=== PATIENT | male | born 1955 | race Caucasian/White ===

== ENCOUNTER 2019-08-21 13:42 | Outpatient (RCR) | payer SELFPAY | END 2019-09-13 23:59 | disposition home or self-care (01) | LOC: CR 13:42 | PROVIDERS: Family Provider Family Medicine; PCP Family Medicine; Referring Provider Internal Medicine Cardiovascular Disease; Visit Provider Internal Medicine Cardiovascular Disease | DX: Z95.5 Presence of coronary angioplasty implant and graft (principal) ==

== ENCOUNTER 2019-09-16 14:49 | Outpatient (RCR) | payer SELFPAY | END 2019-10-12 23:59 | disposition home or self-care (01) | LOC: CR 14:49 | PROVIDERS: Family Provider Family Medicine; PCP Family Medicine; Referring Provider Internal Medicine Cardiovascular Disease; Visit Provider Internal Medicine Cardiovascular Disease | DX: Z95.5 Presence of coronary angioplasty implant and graft (principal) ==

== ENCOUNTER 2019-09-19 03:15 | Observation (INO) | payer MEDICARE, OTHER, SELFPAY ==
[2019-09-19] VITALS (18 sets, daily range): BP systolic 137–161; BP diastolic 67–97; PULSE 55–88; RESP 14–18; TEMP 36.6–36.9; O2SAT 92–96; BMI 34.5
--- NOTE | 2019-09-19 03:18 | ED_ITS ---
Entered by Felisa Rivas, acting as scribe for Meaghan Hendrix MD Documented by User: Meaghan Hendrix MD 09/19/19 05:24 HPI - Chest Pain General: Chief Complaint: Chest Pain Stated Complaint: CP Time Seen by Provider: 09/19/19 03:18 Source: patient and family Mode of arrival: ambulatory History of Present Illness: HPI narrative: 64 y/o male presents to the ED with complaint of chest pain. Pt states it started as a weight/pressure and then he became SOB. He did not have any relief from home NTG. Pt states he had a CABG in 2006 and his las ER visit for chest pain was in 2018. 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 Morrison. complaint: chest pain Pertinent past history: CABG Onset (ago): hour(s) Timing of current episode: constant and still present Prior episodes: Yes Onset: during rest Severity: similar to previous episodes Quality: heaviness Relieving factors: nothing Associated symptoms: Reports dyspnea; Deny abdominal pain, fever(s), nausea or vomiting Treatment prior to arrival: nitroglycerin Risk Factors: Coronary artery disease risk factors: diabetes and hypertension Review of Systems Const: Denies: fever, chills, body aches or change in appetite Eyes: Denies: blurry vision or eye discomfort ENMT: Denies: throat pain or dental pain Card: Reports: chest pain Resp: Reports: shortness of breath GI: Denies: abdominal pain, nausea, vomiting or diarrhea : Denies: painful urination Musc: Denies: neck pain or back pain Skin/Breast: Denies: rash Neuro: Denies: headache Psych: Denies: depression Marcus/Lymph: Denies: easy bruising All/Imm: Denies: hives PFSH ED PFSH: Statuses (acute, chronic, etc) shown below reflect problem list status as previously entered and may not be historically accurate Medical History (Updated 09/19/19 @ 18:58 by Tara Morrison MD) Adult-onset obesity (Acute) Anxiety (Acute) CAD (coronary artery disease) (Acute) Followed by Dr. Morrison, history of stenting and CABG GERD (gastroesophageal reflux disease) (Acute) Hyperlipidemia (Acute) Hypertension (Acute) Ischemic cardiomyopathy (Acute) PAD (peripheral artery disease) (Acute) Systolic congestive heart failure (Acute) last echo 10/2017- LVEF 40%, normal diastolic function, trace MR. Type 2 diabetes mellitus, without long-term current use of insulin (Inactive) Surgical History Coronary angioplasty status (Acute) 04/25/15: balloon angioplasty to PDA and PLB, GOMEZ to LAD patent, SVG to OM 1 patent, SVG to PDA patent. Prox RCA 60% stenosis. History of cardiac radiofrequency ablation (Acute) History of carpal tunnel release (Acute) History of cholecystectomy (Acute) History of femoropopliteal bypass (Acute) Left common femoral artery bypass surgery performed by Dr. Carrillo on 12/15/2014 History of surgery on extremity (Acute) 12/28/2014: Right groin and femoral artery exploration and primary repair of right femoral artery catheterization site History of umbilical hernia repair (Acute) S/P CABG x 3 (Acute) GOMEZ to LAD, SVG to OM1, SVG to PDA Family History Brother CAD (coronary artery disease) Diabetes Hyperlipidemia Hypertension Mother CAD (coronary artery disease) Cancer Diabetes Hyperlipidemia Hypertension Grandfather Cancer Father Diabetes Hyperlipidemia Hypertension Denies family history of Clotting disorder Dementia Psychiatric illness Chronic kidney disease (CKD) Suicide Anesthesia complication Bleeding disorder Family history of premature coronary artery disease Lung disease Stroke Social History Smoking and tobacco status: never smoked Alcohol intake: never Substance/Drug Use: never Physical Exam Const: COMMON NORMALS: oriented x3 NUTRITIONAL APPEARANCE: obese HENMT: COMMON NORMALS: normocephalic and head/scalp atraumatic HEAD & SCALP: normocephalic and atraumatic Eye: COMMON NORMALS: PERRL and EOMs intact bilaterally PUPIL: Yes PERRL Neck/C-Spine: COMMON NORMALS: full ROM and supple Chest: COMMONS NORMALS: inspection of chest normal and palpation of chest normal Resp: COMMON NORMALS: normal respiratory effort, no retractions, no use of accessory muscles and clear to auscultation bilaterally AUSCULTATION: clear to auscultation bilaterally Cardio: COMMON NORMALS: regular rate, regular rhythm and no murmurs RATE: regular rate RHYTHM: regular rhythm GI: COMMON NORMALS: normal to inspection, nondistended, normoactive bowel sounds, soft to palpation, non-tender and no masses PALPATION: Yes soft Extremity: COMMON NORMALS: normal to inspection and full ROM Neuro: COMMON NORMALS: oriented x3, moves all extremities and no focal motor deficits Psych: COMMON NORMALS: mental status grossly normal, thought process normal and cooperative THOUGHT PROCESS: normal thought process Skin: COMMON NORMALS: no rashes or lesions noted and no wounds GENERAL SKIN EXAM: no rashes or lesions noted Course Reevaluation(s): Reevaluation #1: Discussed patient's initial troponin being normal. Due to patient's history I recommended admission. He states that his pain has improved and his stress test never show any findings. He states that he would like to think longer about if he wants to stay or just follow-up with Dr. Smith as an outpatient. He states he saw his primary care doctor last week and I spoke about doing an outpatient cath test. I informed patient that we will do a 2-hour troponin and see if there is any change and also discussed again if he would like to stay or follow-up outpatient. Time: 04:51 Vital Signs: Vital signs: Vital Signs Temperature 98.3 F 09/20/19 14:46 Pulse Rate 79 09/20/19 14:46 Respiratory Rate 18 09/20/19 14:46 Blood Pressure 143/80 09/20/19 14:46 Pulse Oximetry 94 09/20/19 14:46 MDM - Chest Pain Lab Data: Labs: Lab Results 09/19/19 09/19/19 09/19/19 Range/Units 03:36 03:36 03:36 WBC 8.4 (4.0-10.0) 10^3/ uL RBC 4.56 (4.1-5.3) 10^6/u L Hgb 13.1 (11.7-16.6) g/dL Hct 40.2 L (42.0-52.0) % MCV 88.2 (80-94) fL MCH 28.7 (28.0-34.0) pg MCHC 32.6 (30.0-36.0) g/dL RDW 12.7 (12.1-15.1) % Plt Count 256 (130-400) 10^3/c mm MPV 10.2 (7.4-10.4) fL Neut % (Auto) 57.4 % Lymph % (Auto) 24.8 % Dare % (Auto) 12.0 % Eos % (Auto) 4.1 % Baso % (Auto) 1.1 % Neut # (Auto) 4.8 (1.8-7.7) 10^3/u L Lymph # (Auto) 2.1 (0.8-4.8) 10^3/u L Dare # (Auto) 1.0 H (0.2-0.9) 10^3/u L Eos # (Auto) 0.3 (0.0-0.8) 10^3/u L Baso # (Auto) 0.1 (0.0-0.1) 10^3/u L Nucleated RBC % (a uto) 0 % Nucleated RBCs # 0.0 /100WBC Sodium 135 L (136-145) mmol/L Potassium 4.0 (3.5-5.1) mmol/L Chloride 99 (98-107) mmol/L Carbon Dioxide 22 (22-29) mmol/L Anion Gap 18.0 (5-19) BUN 18 (8-23) mg/dL Creatinine 1.0 (0.7-1.2) mg/dL GFR Calculation 75.2 L (90-130) mL/min Glucose 155 H (65-115) mg/dL Calcium 9.4 (8.5-10.5) mg/dL Total Bilirubin 0.4 (0.15-1.2) mg/dL AST 16 (0-40) U/L ALT 17 (0-41) U/L Alkaline Phosphata se 83 (40-130) IU/L Troponin T Baselin e 14 (0-15) ng/mL Troponin T 120 Min [place] (0-15) ng/mL Delta Troponin T (0-10) ABS# Total Protein 6.4 L (6.6-8.7) g/dL Albumin 3.8 (3.5-5.2) g/dL Globulin 2.6 (1.3-4.6) g/dL Lipase 31 (13-60) U/L 09/19/19 Range/Units 05:35 WBC (4.0-10.0) 10^3/ uL RBC (4.1-5.3) 10^6/u L Hgb (11.7-16.6) g/dL Hct (42.0-52.0) % MCV (80-94) fL MCH (28.0-34.0) pg MCHC (30.0-36.0) g/dL RDW (12.1-15.1) % Plt Count (130-400) 10^3/c mm MPV (7.4-10.4) fL Neut % (Auto) % Lymph % (Auto) % Dare % (Auto) % Eos % (Auto) % Baso % (Auto) % Neut # (Auto) (1.8-7.7) 10^3/u L Lymph # (Auto) (0.8-4.8) 10^3/u L Dare # (Auto) (0.2-0.9) 10^3/u L Eos # (Auto) (0.0-0.8) 10^3/u L Baso # (Auto) (0.0-0.1) 10^3/u L Nucleated RBC % (a uto) % Nucleated RBCs # /100WBC Sodium (136-145) mmol/L Potassium (3.5-5.1) mmol/L Chloride (98-107) mmol/L Carbon Dioxide (22-29) mmol/L Anion Gap (5-19) BUN (8-23) mg/dL Creatinine (0.7-1.2) mg/dL GFR Calculation (90-130) mL/min Glucose (65-115) mg/dL Calcium (8.5-10.5) mg/dL Total Bilirubin (0.15-1.2) mg/dL AST (0-40) U/L ALT (0-41) U/L Alkaline Phosphata se (40-130) IU/L Troponin T Baselin e (0-15) ng/mL Troponin T 120 Min [place] 15.65 H (0-15) ng/mL Delta Troponin T 1.65 (0-10) ABS# Total Protein (6.6-8.7) g/dL Albumin (3.5-5.2) g/dL Globulin (1.3-4.6) g/dL Lipase (13-60) U/L Imaging Data^: CXR: Attestation: I personally reviewed and interpreted this imaging study as follows: My impression: No acute abnormality EKG Data^: EKG 1: Attestation: I personally reviewed and interpreted this EKG as follows: EKG interpretation date: 09/19/19 EKG interpretation time: 03:27 Interpretation: Normal sinus rhythm heart rate [address] or T wave abnormalities QRS 118 QTc 398 EKG 2: EKG interpretation date: 09/19/19 EKG interpretation time: 05:22 Interpretation: Normal sinus rhythm heart rate [address] or T wave abnormalities QRS 124 QTc 404 Discharge Plan Discharge Patient Disposition: Admitted As Inpatient Admit Provider: Marley Charles Clinical Impression: Chest pain Qualifiers: Chest pain type: unspecified Qualified Code(s): R07.9 - Chest pain, unspecified Condition: Stable Discharge Orders: Discharge Order (Routine); Ordered 09/20/19 Ordered By: Satinder Chapa Referrals: Tara Morrison MD [Physician] - 6 Weeks (PLEASE CALL FOR APPOINTMENT WITH HEART CARE) Teodoro Jon DO [Primary Care Provider] - 4-7 days Discharge Diet: Cardiac and Diabetic Discharge Activity: Increase activity as tolerated and Limit activity as instructed Patient Instructions: Atorvastatin (By mouth), Coronary Artery Disease (GEN), Chest Pain (GEN), Chest Pain Stoplight Additional Instructions: Avoid lifting over 5 pounds for 3 days. If you experience recurrence of chest pain, or shortness of breath, bleeding or increased swelling around insertion site of the catheter, or other abnormal symptoms please seek medical attention. Please continue to monitor your blood pressure and glucose 3 times daily, record values to bring to your appointment. Discharge Date/Time: 09/19/19 08:20 Coding Level of Care Code ED Industrial Spraypainter for Chg Fwd Documented by User: Jamie Desir DO 09/20/19 15:31 HPI - Chest Pain General: Chief Complaint: Chest Pain Stated Complaint: CP Time Seen by Provider: 09/19/19 03:18 PFSH ED PFSH: Statuses (acute, chronic, etc) shown below reflect problem list status as previously entered and may not be historically accurate Medical History (Updated 09/19/19 @ 18:58 by Tara Morrison MD) Adult-onset obesity (Acute) Anxiety (Acute) CAD (coronary artery disease) (Acute) Followed by Dr. Morrison, history of stenting and CABG GERD (gastroesophageal reflux disease) (Acute) Hyperlipidemia (Acute) Hypertension (Acute) Ischemic cardiomyopathy (Acute) PAD (peripheral artery disease) (Acute) Systolic congestive heart failure (Acute) last echo 10/2017- LVEF 40%, normal diastolic function, trace MRMark Type 2 diabetes mellitus, without long-term current use of insulin (Inactive) Surgical History Coronary angioplasty status (Acute) 04/25/15: balloon angioplasty to PDA and PLB, GOMEZ to LAD patent, SVG to OM 1 patent, SVG to PDA patent. Prox RCA 60% stenosis. History of cardiac radiofrequency ablation (Acute) History of carpal tunnel release (Acute) History of cholecystectomy (Acute) History of femoropopliteal bypass (Acute) Left common femoral artery bypass surgery performed by Dr. Carrillo on 12/15/2014 History of surgery on extremity (Acute) 12/28/2014: Right groin and femoral artery exploration and primary repair of right femoral artery catheterization site History of umbilical hernia repair (Acute) S/P CABG x 3 (Acute) GOMEZ to LAD, SVG to OM1, SVG to PDA Family History Brother CAD (coronary artery disease) Diabetes Hyperlipidemia Hypertension Mother CAD (coronary artery disease) Cancer Diabetes Hyperlipidemia Hypertension Grandfather Cancer Father Diabetes Hyperlipidemia Hypertension Denies family history of Clotting disorder Dementia Psychiatric illness Chronic kidney disease (CKD) Suicide Anesthesia complication Bleeding disorder Family history of premature coronary artery disease Lung disease Stroke Social History Smoking and tobacco status: never smoked Alcohol intake: never Substance/Drug Use: never Course ED course: While we are waiting for second troponin Mr. Salinas began having chest pain again he rated the chest pain 4-5 out of 10 and some Nitropaste was applied and it significantly reduces chest pain. Troponins do not rule him in in his delta is very minimal however given his report of chest pain while at rest relieved by nitro with a history of heart disease diabetes and hypertension he has a significantly high enough risk with his heart score to warrant observation for full rule out and further evaluation. Reviewing the old chart I do not series had a stress test before. Discussed this with the patient he is agreeable to be admitted discussed Dr. Charles she will see the patient as an inpatient consult cardiology if needed. Vital Signs: Vital signs: Vital Signs Temperature 98.3 F 09/20/19 14:46 Pulse Rate 79 09/20/19 14:46 Respiratory Rate 18 09/20/19 14:46 Blood Pressure 143/80 09/20/19 14:46 Pulse Oximetry 94 09/20/19 14:46 MDM - Chest Pain Lab Data: Labs: Lab Results 09/19/19 09/19/19 09/19/19 Range/Units 03:36 03:36 03:36 WBC 8.4 (4.0-10.0) 10^3/ uL RBC 4.56 (4.1-5.3) 10^6/u L Hgb 13.1 (11.7-16.6) g/dL Hct 40.2 L (42.0-52.0) % MCV 88.2 (80-94) fL MCH 28.7 (28.0-34.0) pg MCHC 32.6 (30.0-36.0) g/dL RDW 12.7 (12.1-15.1) % Plt Count 256 (130-400) 10^3/c mm MPV 10.2 (7.4-10.4) fL Neut % (Auto) 57.4 % Lymph % (Auto) 24.8 % Dare % (Auto) 12.0 % Eos % (Auto) 4.1 % Baso % (Auto) 1.1 % Neut # (Auto) 4.8 (1.8-7.7) 10^3/u L Lymph # (Auto) 2.1 (0.8-4.8) 10^3/u L Dare # (Auto) 1.0 H (0.2-0.9) 10^3/u L Eos # (Auto) 0.3 (0.0-0.8) 10^3/u L Baso # (Auto) 0.1 (0.0-0.1) 10^3/u L Nucleated RBC % (a uto) 0 % Nucleated RBCs # 0.0 /100WBC Sodium 135 L (136-145) mmol/L Potassium 4.0 (3.5-5.1) mmol/L Chloride 99 (98-107) mmol/L Carbon Dioxide 22 (22-29) mmol/L Anion Gap 18.0 (5-19) BUN 18 (8-23) mg/dL Creatinine 1.0 (0.7-1.2) mg/dL GFR Calculation 75.2 L (90-130) mL/min Glucose 155 H (65-115) mg/dL Calcium 9.4 (8.5-10.5) mg/dL Total Bilirubin 0.4 (0.15-1.2) mg/dL AST 16 (0-40) U/L ALT 17 (0-41) U/L Alkaline Phosphata se 83 (40-130) IU/L Troponin T Baselin e 14 (0-15) ng/mL Troponin T 120 Min [place] (0-15) ng/mL Delta Troponin T (0-10) ABS# Total Protein 6.4 L (6.6-8.7) g/dL Albumin 3.8 (3.5-5.2) g/dL Globulin 2.6 (1.3-4.6) g/dL Lipase 31 (13-60) U/L 09/19/19 Range/Units 05:35 WBC (4.0-10.0) 10^3/ uL RBC (4.1-5.3) 10^6/u L Hgb (11.7-16.6) g/dL Hct (42.0-52.0) % MCV (80-94) fL MCH (28.0-34.0) pg MCHC (30.0-36.0) g/dL RDW (12.1-15.1) % Plt Count (130-400) 10^3/c mm MPV (7.4-10.4) fL Neut % (Auto) % Lymph % (Auto) % Dare % (Auto) % Eos % (Auto) % Baso % (Auto) % Neut # (Auto) (1.8-7.7) 10^3/u L Lymph # (Auto) (0.8-4.8) 10^3/u L Dare # (Auto) (0.2-0.9) 10^3/u L Eos # (Auto) (0.0-0.8) 10^3/u L Baso # (Auto) (0.0-0.1) 10^3/u L Nucleated RBC % (a uto) % Nucleated RBCs # /100WBC Sodium (136-145) mmol/L Potassium (3.5-5.1) mmol/L Chloride (98-107) mmol/L Carbon Dioxide (22-29) mmol/L Anion Gap (5-19) BUN (8-23) mg/dL Creatinine (0.7-1.2) mg/dL GFR Calculation (90-130) mL/min Glucose (65-115) mg/dL Calcium (8.5-10.5) mg/dL Total Bilirubin (0.15-1.2) mg/dL AST (0-40) U/L ALT (0-41) U/L Alkaline Phosphata se (40-130) IU/L Troponin T Baselin e (0-15) ng/mL Troponin T 120 Min [place] 15.65 H (0-15) ng/mL Delta Troponin T 1.65 (0-10) ABS# Total Protein (6.6-8.7) g/dL Albumin (3.5-5.2) g/dL Globulin (1.3-4.6) g/dL Lipase (13-60) U/L Discharge Plan Discharge Patient Disposition: Admitted As Inpatient Admit Provider: Marley Charles Clinical Impression: Chest pain Qualifiers: Chest pain type: unspecified Qualified Code(s): R07.9 - Chest pain, unspecified Condition: Stable Discharge Orders: Discharge Order (Routine); Ordered 09/20/19 Ordered By: Satinder Chapa Referrals: Tara Morrison MD [Physician] - 6 Weeks (PLEASE CALL FOR APPOINTMENT WITH HEART CARE) Teodoro Jon DO [Primary Care Provider] - 4-7 days Discharge Diet: Cardiac and Diabetic Discharge Activity: Increase activity as tolerated and Limit activity as instructed Patient Instructions: Atorvastatin (By mouth), Coronary Artery Disease (GEN), Chest Pain (GEN), Chest Pain Stoplight Additional Instructions: Avoid lifting over 5 pounds for 3 days. If you experience recurrence of chest pain, or shortness of breath, bleeding or increased swelling around insertion site of the catheter, or other abnormal symptoms please seek medical attention. Please continue to monitor your blood pressure and glucose 3 times daily, record values to bring to your appointment. Discharge Date/Time: 09/19/19 08:20 Coding Level of Care Code ED Industrial Spraypainter for g Louis The documentation recorded by the Rob mirza Ashley, accurately reflects the service I personally performed and the decisions made by , Meaghan Hendrix MD Sep 19, 2019 03:15
--- NOTE | 2019-09-19 03:26 | XR_ITS ---
WS: [id number] Portable AP upright chest, 09/19/2019 Clinical Data: cp Comparison: Portable chest, 01/20/2018 Findings: No nodules, masses or effusions are seen. The heart is slightly enlarged. The pulmonary vas cularity is not increased. No pneumonia or pneumothorax is seen. Midline sternotomy sutures are prese nt. There are monitor leads on the chest wall. XR/XR chest 1V portable [id number] Impression: Mild cardiomegaly.
--- NOTE | 2019-09-19 03:26 | ECG_ITS ---
Measurements Intervals [place] Rate: 67 P: 43 HI: 233 QRS: 36 QRSD: 124 T: 0 QT: 389 QTc: 411 SINUS RHYTHM WITH FIRST DEGREE AV BLOCK MODERATE INTRAVENTRICULAR CONDUCTION DELAY [110+ ms QRS DURATION] NONSPECIFIC T-WAVE ABNORMALITY Compared to ECG 01/21/2018 11:37:20 No significant changes Electronically Signed On 09-19-2019 16:31:24 OIM ARCHITECT by Rayray Mccoy M.D. [id number]
[2019-09-19] MEDS: morphine 4 mg/mL SDV 1 mL IVP ×2 (03:36→04:12)
[2019-09-19] MEDS: aspirin 81 mg Chew Tablet 324 MG PO (03:41)
[2019-09-19 04:10] LABS: Basophils # 0.1 10^3/uL (0.0-0.1); Basophils % 1.1 %; Eosinophils # 0.3 10^3/uL (0.0-0.8); Eosinophils % 4.1 %; Hematocrit 40.2 % (42.0-52.0); Hemoglobin 13.1 g/dL (11.7-16.6); Lymphocytes # 2.1 10^3/uL (0.8-4.8); Lymphocytes % 24.8 %; Mean Corpuscular HGB Conc 32.6 g/dL (30.0-36.0); Mean Corpuscular Hemoglobin 28.7 pg (28.0-34.0); Mean Corpuscular Volume 88.2 fL (80-94); Mean Platelet Volume 10.2 fL (7.4-10.4); Neutrophils # 4.8 10^3/uL (1.8-7.7); Neutrophils % 57.4 %; Nucleated Red Blood Cells % 0 %; Platelet Count 256 10^3/cmm (130-400); Red Blood Count 4.56 10^6/uL (4.1-5.3); Red Cell Distribution Width 12.7 % (12.1-15.1); White Blood Count 8.4 10^3/uL (4.0-10.0)
[2019-09-19 04:26] LABS: Alanine Aminotransferase 17 U/L (0-41); Albumin Level 3.8 g/dL (3.5-5.2); Alkaline Phosphatase 83 IU/L (40-130); Aspartate Amino Transferase 16 U/L (0-40); Blood Urea Nitrogen 18 mg/dL (8-23); Calcium 9.4 mg/dL (8.5-10.5); Carbon Dioxide 22 mmol/L (22-29); Chloride 99 mmol/L (98-107); Globulin 2.6 g/dL (1.3-4.6); Glomerular Filtration Rate 75.2 mL/min (90-130); Glucose 155 mg/dL (65-115); Lipase 31 U/L (13-60); Sodium 135 mmol/L (136-145); Total Bilirubin 0.4 mg/dL (0.15-1.2); Total Protein 6.4 g/dL (6.6-8.7)
[2019-09-19 04:29] LABS: Troponin(5th) Baseline 14 ng/mL (0-15)
--- NOTE | 2019-09-19 05:22 | PC.NURSE ---
EKG done at 0520 and shown to ER doctor.
--- NOTE | 2019-09-19 05:26 | ECG_ITS ---
Measurements Intervals [place] Rate: 69 P: -25 MO: 199 QRS: 42 QRSD: 118 T: -62 QT: 378 QTc: 407 SINUS RHYTHM WITH FREQUENT VENTRICULAR PREMATURE COMPLEXES MODERATE INTRAVENTRICULAR CONDUCTION DELAY [110+ ms QRS DURATION] NONSPECIFIC T-WAVE ABNORMALITY Compared to ECG 01/21/2018 11:37:20 Ventricular premature complex(es) now present First degree AV block no longer present T-wave abnormality still present Electronically Signed On 09-19-2019 16:38:00 WAREHOUSE RECEIVER by Rayray Mccoy M.D. [id number]
--- NOTE | 2019-09-19 05:32 | PC.NURSE ---
LAB IN ROOM
[2019-09-19 06:03] LABS: Troponin 5 2HR 15.65 ng/mL (0-15); Troponin 5 2HR Delta 1.65 ABS# (0-10)
[2019-09-19] MEDS: nitroglycerin 1 gm/inch oint Pkt 1 INCH TOPICAL (06:13)
--- NOTE | 2019-09-19 06:15 | PC.NURSE ---
PATIENT STATED TO NURSE THAT HIS PAIN WAS COMING BACK IN HIS CHEST AND RATED IT AT A FOUR. NURSE NOTIFIED HCP, 1 INCH OF NITROPASTE APPLIED TO PATIENTS CHEST PER HCP ORDERS.
--- NOTE | 2019-09-19 06:48 | ECG_ITS ---
Measurements Intervals [place] Rate: 69 P: 20 WA: 258 QRS: 19 QRSD: 132 T: -66 QT: 388 QTc: 417 SINUS RHYTHM WITH FIRST DEGREE AV BLOCK WITH OCCASIONAL VENTRICULAR PREMATURE COMPLEXES INTRAVENTRICULAR CONDUCTION DELAY [130+ ms QRS DURATION] Compared to ECG 01/21/2018 11:37:20 Ventricular premature complex(es) now present T-wave abnormality no longer present Electronically Signed On 09-19-2019 16:32:14 PHOTO ENGRAVER by Rayray Mccoy M.D. [id number]
--- NOTE | 2019-09-19 06:50 | PC.NURSE ---
Patient states his pain is at a 2 now after the application of the nitropaste.
[2019-09-19] MEDS: enoxaparin 120 mg/0.8 mL Syringe 110 MG SUBCUT (07:13)
--- NOTE | 2019-09-19 09:26 | ECG_ITS ---
Measurements Intervals [place] Rate: 71 P: 35 WI: 243 QRS: 43 QRSD: 122 T: -58 QT: 390 QTc: 424 SINUS RHYTHM WITH FIRST DEGREE AV BLOCK WITH FREQUENT VENTRICULAR PREMATURE COMPLEXES MODERATE INTRAVENTRICULAR CONDUCTION DELAY [110+ ms QRS DURATION] NONSPECIFIC T-WAVE ABNORMALITY Compared to ECG 01/21/2018 11:37:20 Ventricular premature complex(es) now present T-wave abnormality still present Electronically Signed On 09-19-2019 16:38:29 TAR DISTRIBUTOR OPERATOR by Rayray Mccoy M.D. [id number]
--- NOTE | 2019-09-19 10:12 | PM.HP ---
Providers/Chief Complaint Admitting Physician: Marley Charles DO Primary Care Provider: Teodoro Jon DO Chief Complaint: CP History of Present Illness Dwayne Salinas is a 64 year old male with a past medical history of hypertension, coronary artery disease, systolic congestive heart failure and diabetes that presented to the emergency department today for chest pain. He stated that he has been having progressive chest pain over the past couple of weeks. He stated that symptoms initially occurred at night while he was getting up to use the restroom he would have a sensation of tightness in his chest that would improve with rest. He reports last night he had similar symptoms but they continued to progress to the point that he came into the ER for further evaluation. He stated that he was given 2 sublingual nitroglycerin prior to arrival which did not really help with his symptoms. He was then given Nitropaste and morphine which resolved his symptoms. He stated that the pain is located in the center of his chest and this morning it felt as if an elephant was sitting on his chest then began having pain in the center of his chest that radiated to the left side of his neck and left arm. He reported associated diaphoresis and nausea with this event today. Patient stated that he was seen in the cardiology office 2 days ago and due to his significant history of coronary artery disease with negative stress test in the past there was question of performing a cardiac cath in the near future. Patient was seen and evaluated in the emergency department due to his significant history of coronary artery disease and presenting symptoms he was admitted for further evaluation and treatment. He was given treatment dose Lovenox in the ED Review of Systems Const: Denies: fever or chills Eyes: Denies: change in vision ENMT: Denies: nasal congestion Card: Reports: chest pain; Denies: palpitations or edema Resp: Denies: shortness of breath, productive cough or coughing up blood GI: Reports: nausea; Denies: abdominal pain, vomiting, diarrhea, constipation, blood in stool or black tarry stool : Denies: painful urination or blood in urine Musc: Denies: extremity pain or muscle cramps Skin/Breast: Denies: rash or new lesion Neuro: Denies: headache or dizziness Psych: Denies: anxiety or depression Endo: Denies: excessive urination or hot flashes Marcus/Lymph: Denies: easy bruising or easy bleeding Medications/Allergies Home Medications Medication Instructions Recorded Confirmed Last Taken Type metformin 1,000 mg PO QPM 09/19/19 09/19/19 Unknown History sbueoxes-rhx-QH-lycopen-lutein 1 tab PO DAILY 09/19/19 09/19/19 Unknown History [Centrum Silver Men] sildenafil 25 mg PO PRN 09/19/19 09/19/19 Unknown History Allergies Allergy/AdvReac Type Severity Reaction Status Date / Time acetaminophen Allergy VERY SHORT Verified 09/17/19 09:17 [From Darvocet-N] OF BREATH penicillin G Allergy HIVES Verified 09/17/19 09:17 propoxyphene Allergy VERY SHORT Verified 09/17/19 09:17 [From Darvocet-N] OF BREATH PFSH Acute PFSH: Statuses (acute, chronic, etc) shown below reflect problem list status as previously entered and may not be historically accurate Medical History (Updated 09/19/19 @ 10:25 by Marley Charles DO) Adult-onset obesity (Acute) Anxiety (Acute) CAD (coronary artery disease) (Acute) Followed by Dr. Morrison, history of stenting and CABG GERD (gastroesophageal reflux disease) (Acute) Hyperlipidemia (Acute) Hypertension (Acute) Ischemic cardiomyopathy (Acute) PAD (peripheral artery disease) (Acute) Systolic congestive heart failure (Inactive) last echo 10/2017- LVEF 40%, normal diastolic function, trace MR. Type 2 diabetes mellitus, without long-term current use of insulin (Inactive) Surgical History (Updated 09/19/19 @ 10:25 by Marley Charles DO) Coronary angioplasty status (Acute) 04/25/15: balloon angioplasty to PDA and PLB, GOMEZ to LAD patent, SVG to OM 1 patent, SVG to PDA patent. Prox RCA 60% stenosis. History of cardiac radiofrequency ablation (Acute) History of carpal tunnel release (Acute) History of cholecystectomy (Acute) History of femoropopliteal bypass (Acute) Left common femoral artery bypass surgery performed by Dr. Carrillo on 12/15/2014 History of surgery on extremity (Acute) 12/28/2014: Right groin and femoral artery exploration and primary repair of right femoral artery catheterization site History of umbilical hernia repair (Acute) S/P CABG x 3 (Acute) GOMEZ to LAD, SVG to OM1, SVG to PDA Family History Brother CAD (coronary artery disease) Diabetes Hyperlipidemia Hypertension Mother CAD (coronary artery disease) Cancer Diabetes Hyperlipidemia Hypertension Grandfather Cancer Father Diabetes Hyperlipidemia Hypertension Denies family history of Clotting disorder Dementia Psychiatric illness Chronic kidney disease (CKD) Suicide Anesthesia complication Bleeding disorder Family history of premature coronary artery disease Lung disease Stroke Social History (Updated 09/19/19 @ 10:25 by Marley Charles DO) Smoking and tobacco status: never smoked Alcohol intake: never Substance/Drug Use: never Vitals/I&O/Wt Last Vital Signs Temp 98.2 F 09/19/19 08:47 Pulse 67 09/19/19 08:47 Resp 18 09/19/19 08:47 BP 147/73 09/19/19 08:47 Pulse Ox 95 09/19/19 08:47 Weight last 48 hrs Weight 112.491 kg Physical Exam Const: COMMON NORMALS: oriented x3 and alert GENERAL APPEARANCE: cooperative ORIENTATION/CONSCIOUSNESS: Yes awake, Yes oriented to person, Yes oriented to place and Yes oriented to time HENMT: COMMON NORMALS: normocephalic and head/scalp atraumatic HEAD & SCALP: normocephalic and atraumatic Eye: COMMON NORMALS: PERRL PUPIL: Yes PERRL Neck/C-Spine: COMMON NORMALS: supple GENERAL: Yes normal visual inspection Resp: COMMON NORMALS: normal respiratory effort and clear to auscultation bilaterally EFFORT & INSPECTION: Yes able to speak in complete sentences AUSCULTATION: clear to auscultation bilaterally, no rhonchi and no wheezes Cardio: COMMON NORMALS: regular rate, regular rhythm and no murmurs RATE: regular rate RHYTHM: regular rhythm GI: COMMON NORMALS: soft to palpation and non-tender INSPECTION: No abdominal distension AUSCULTATION: Yes normoactive bowel sounds PALPATION: Yes soft Extremity: COMMON NORMALS: no clubbing, cyanosis or edema and no calf tenderness Neuro: COMMON NORMALS: oriented x3, CN's II-XII intact bilaterally, moves all extremities and no focal motor deficits SENSORIUM/ORIENTATION: Yes alert, Yes oriented to person, Yes oriented to place and Yes oriented to time SPEECH: speech normal Psych: COMMON NORMALS: mental status grossly normal and cooperative Skin: COMMON NORMALS: no rashes or lesions noted GENERAL SKIN EXAM: no rashes or lesions noted Data : 09/19/19 03:36 09/19/19 03:36 A&P Assessment and plan (1) Chest pain: Chest pain with a history of significant coronary artery disease as noted above. Followed by cardiology, Dr. Morrison. Consult to cardiology, Dr. Morrison due to his history and reported false negative stress test by patient in the past. Discussed with Dr. Morrison and will plan for possible cardiac cath tomorrow. Appreciate recommendations and assistance in patient's care. Continue to monitor on telemetry CHINEDU as needed for chest pain Serial EKG and troponin Status: Acute Qualifiers: Chest pain type: unspecified Qualified Code(s): R07.9 - Chest pain, unspecified Code(s): R07.9 - Chest pain, unspecified (2) CAD (coronary artery disease): Continue home aspirin, Coreg, Plavix, enalapril, increase to high intensity statin Deviously on Imdur, however not on current medication list Status: Acute Qualifiers: Coronary Disease-Associated Artery/Lesion type: [place] artery [place] vs. transplanted heart: [place] heart Associated angina: with stable angina Qualified Code(s): I25.118 - Atherosclerotic heart disease of [place] coronary artery with other forms of angina pectoris Code(s): I25.10 - Atherosclerotic heart disease of [place] coronary artery without angina pectoris Additional A&P Information Hypertension: Continue home Lasix, Coreg, Aldactone and enalapril Hyperlipidemia: Increase to high intensity statin Diabetes mellitus type 2: Hold home metformin, place on low-dose sliding scale insulin if needed History of PVCs Systolic congestive heart failure: Last echocardiogram from 2018, will repeat due to his chest pain, appears to be euvolemic at this time, will continue home Lasix, strict intake and output as well as daily weights DVT prophylaxis: Given treatment dose Lovenox in the ED due to the concern for his chest pain with significant coronary artery disease, will continue with SCDs at this time Diet: Cardiac, n.p.o. at midnight CODE STATUS: Full code Attestations Medical Necessity Statement*: Observation due to chest pain, expected stay less than 2 midnights Coding Level of Care Code Acute Tire Tester for [facility] Fwd Diagnoses Chest pain R07.9 Chest pain type: unspecified CAD (coronary artery disease) I25.118 Coronary Disease-Associated Artery/Lesion type: [place] artery [place] vs. transplanted heart: [place] heart Associated angina: with stable angina
--- NOTE | 2019-09-19 10:37 | USCV_ITS ---
Dwayne Salinas Age: 64 Gender: M : 1955 Exam Date: 09/19/2019 10:40 Ordering Phys: Marley Charles DO Technologist: Wendy Hodgson Exam Location: [facility] [place] Indication: Chest pain, CHF BP: 145 / 71 HR: 69 Rhythm: Sinus Technical Quality: Technically difficult study MEASUREMENTS (Male / Female) Normal Values 2D ECHO LV Diastolic Diameter PLAX 4.6 cm 4.2 - 5.9 / 3.9 - 5.3 cm LV Systolic Diameter PLAX 3.3 cm LV Chamber Size 5.0 cm IVS Diastolic Thickness 1.3 cm 0.6 - 1.0 / 0.6 - 0.9 cm IVS Systolic Thickness 2.0 cm LVPW Diastolic Thickness 0.8 cm 0.6 - 1.0 / 0.6 - 0.9 cm LVPW Systolic Thickness 1.3 cm RV Chamber Size 2.1 cm LVOT Diameter 2.0 cm LV Ejection Fraction 2D Teich 55.2 % LA Diameter 4.4 cm LA Width 3.2 cm LA Height 5.4 cm RA Width 3.5 cm RA Height 5.3 cm Aorta at Sinotubular Diameter 2.7 cm M-MODE LV Diastolic Diameter MM 5.3 cm 4.2 - 5.9 / 3.9 - 5.3 cm LV Systolic Diameter MM 3.8 cm LV Ejection Fraction MM Teich 54.4 % IVS Diastolic Thickness MM 0.9 cm 0.6 - 1.0 / 0.6 - 0.9 cm IVS Systolic Thickness MM 1.3 cm LVPW Diastolic Thickness MM 1.2 cm 0.6 - 1.0 / 0.6 - 0.9 cm LVPW Systolic Thickness MM 1.8 cm RV Diastolic Diameter MM 0.8 cm Aortic Annulus Diameter 3.9 cm LA Ao Ratio MM 1.1 MV E Point Septal Separation 0.5 cm DOPPLER AV Peak Velocity 107.0 cm/s LVOT Peak Velocity 79.0 cm/s AV Area Cont Eq vti 2.2 cm squared AV Area Cont Eq pk 2.4 cm squared MV Area PHT 4.1 cm squared Mitral E to A Ratio 1.2 MV E' Velocity 11.0 cm/s Mitral E to MV E' Ratio 7.8 Mitral E to LV E' Lateral Ratio 7.7 Mitral E to LV E' Septal Ratio 7.8 TR Peak Velocity 204.0 cm/s TR Peak Gradient 16.7 mmHg TV Peak E Velocity 68.0 cm/s Right Atrial Pressure 3.0 mmHg Pulmonary Artery Systolic Pressu 19.6 mmHg PV Peak Velocity 75.0 cm/s RV Acceleration Time 0.1 s RV Ejection Time 0.3 s RV AcT/ET 0.4 FINDINGS Left Ventricle Moderately increased left ventricular cavity size. Mildly decreased left ventricular systolic function. Left ventricular ejection fraction is estimated at 50 %. Global left ventricular hypokinesis. Grade II/IV diastolic dysfunction, moderately elevated filling pressures. Right Ventricle The right ventricle is normal in size and function. Right Atrium The right atrium is normal in size. Left Atrium The left atrium is normal in size. Mitral Valve Mildly thickened mitral valve. No mitral valve stenosis. Trace mitral valve regurgitation. Aortic Valve Aortic valve sclerosis without stenosis or regurgitation. Tricuspid Valve Trace to mild tricuspid valve regurgitation. Pulmonic Valve Structurally normal pulmonic valve without significant stenosis. There is no pulmonic regurgitation. Pericardium Normal pericardium without effusion. Aorta Normal ascending aorta dimension. CONCLUSIONS 1-Moderately increased left ventricular cavity size. Mildly decreased left ventricular systolic function. Left ventricular ejection fraction is estimated at 50 %. Global left ventricular hypokinesis. Grade II/IV diastolic dysfunction, moderately elevated filling pressures. 2-There is no pericardial effusion. 3-No significant valve abnormalities. 4-Pulmonary artery systolic pressure is within normal limits. 5-Right atrial pressure is around 5 mm of mercury. 6-No significant change since the prior echocardiogram study of 10/17/2017. Tara Morrison MD (Electronically Signed) Final Date: 19 September 2019 17:30 S
[2019-09-19] MEDS: FUROsemide 20 mg Tablet PO (11:31)
[2019-09-19] MEDS: spironolactone 25 mg Tablet 12.5 MG PO (11:31)
[2019-09-19] MEDS: clopidogrel 75 mg Tablet PO (11:31)
[2019-09-19] MEDS: nitroglycerin 1 gm/inch oint Pkt 0.5 INCH TOPICAL ×2 (11:35→15:35)
[2019-09-19 11:44] LABS: Glucose Point of Care 120 mg/dL (70-110)
--- NOTE | 2019-09-19 11:57 | PC.CHAP ---
Pastoral Care Encounter/Spiritual Assessment Type of Contact [] Declined tibco developer visit [] Patient/Family/Request visit [] Outpatient visit [] Follow-up visit [] Physician referral [] Code/Alert [x] Routine visit [] Staff referral [] Actively dying [] Patient sleeping [] Family support [] [] Out of room [] Palliative care [] [] Receiving care in room [] Pre-surgical visit [] Trauma [] Long length of stay [] ICU visit [] Other: Relational/Emotional Strength [x] Patient feels connected with others/family/visitors/staff [] Distress [] Loneliness/isolation [] Abandonment Spirituality of Patient [x] Person of Herminia [x] Attends Gnosticism of their Herminia [x] Believes in Prayer []x Reads Bible or Confucianism materials [] There are Spiritual issues to be addressed Tissue Rewinder Interventions [x] Prayer [x] Active listening [x] Non-anxious presence [x] Spiritual/emotional support [] Crisis/trauma care [] Spiritual counseling [] Bereavement support [] Provided bereavement packet [] Provided Bible/devotional materials [] Provided toy/stuffed animal, coloring book to patient or family member [] Provided Communion [] Anointing/[place] [] Salvation [] Completed spiritual assessment [] Other: Impact on Illness or Injury [] Angry [] Fearful [] Anxious [] Often cries [] Exhaustion [] Unable to work [] Unable to attend mormon [] Unable to walk/stand [] Unable to read [] Unable to drive [] Unable to eat/drink [] Unable to sleep [] Unable to be with family [] Patient intubated [] Other: N/A Summary Patient was attended to by his . Time spent with patient 5 minutes
[2019-09-19 17:00] LABS: Glucose Point of Care 151 mg/dL (70-110)
[2019-09-19] MEDS: pantoprazole DR 40 mg Tablet PO (17:21)
[2019-09-19] MEDS: carvedilol 12.5 mg Tablet PO (17:21)
--- NOTE | 2019-09-19 18:45 | PM.CONSULT ---
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 According to the patient due to recent stress at the job secondary to new computer system he noticed that his chest becomes tight easily at rest and upon exertion. At couple of occasions he was awakened from sleep like elephant sitting on his chest. He saw our nurse practitioner in cardiology clinic 3-4 days ago when his medicines was optimized. Last night he was awakened from the sleep due to chest pain. When chest pressure did not get better he came to emergency room. He was ruled out for acute coronary syndrome. Review of Systems Const: Denies: fever, chills, body aches or change in appetite Eyes: Denies: change in vision, blurry vision or eye discomfort ENMT: Denies: throat pain, dental pain or nasal congestion Card: Reports: chest pain; Denies: palpitations or edema Resp: Denies: shortness of breath, productive cough or coughing up blood GI: Reports: nausea; Denies: abdominal pain, vomiting, diarrhea, constipation, blood in stool or black tarry stool : Denies: painful urination or blood in urine Musc: Denies: neck pain, back pain, extremity pain or muscle cramps Skin/Breast: Denies: rash or new lesion Neuro: Denies: headache or dizziness Psych: Denies: anxiety or depression Endo: Denies: excessive urination or hot flashes Marcus/Lymph: Denies: easy bruising or easy bleeding All/Imm: Denies: hives Meds/Allergies Home Medications and Allergies Home Medications Medication Instructions Recorded Confirmed Type acetaminophen 500 mg tablet 500 mg PO Q6H PRN 09/17/19 09/19/19 History aspirin 81 mg chewable tablet 81 mg PO DAILY 09/17/19 09/19/19 History carvedilol 25 mg tablet See Rx Instructions .ROUTE .COMPLEX 09/17/19 09/19/19 History cholecalciferol (vitamin D3) 2,000 2,000 unit PO DAILY 09/17/19 09/19/19 History unit tablet clopidogrel 75 mg tablet 75 mg PO DAILY 09/17/19 09/19/19 History cyanocobalamin (vitamin B-12) 500 500 mcg PO DAILY 09/17/19 09/19/19 History mcg tablet enalapril maleate 5 mg tablet 5 mg PO BID 09/17/19 09/19/19 History furosemide 20 mg tablet 20 mg PO DAILY 09/17/19 09/19/19 History nitroglycerin 0.4 mg sublingual 0.4 mg SUBLINGUAL Q5M PRN 09/17/19 09/19/19 History tablet omeprazole 20 mg capsule,delayed 20 mg PO BID 09/17/19 09/19/19 History release potassium chloride 20 mEq 20 meq PO DAILY 09/17/19 09/19/19 History tablet,extended release simvastatin 20 mg tablet 20 mg PO DAILY 09/17/19 09/19/19 History spironolactone 25 mg tablet 12.5 mg PO DAILY tab 09/17/19 09/19/19 History tramadol 50 mg tablet 50 mg PO 6XD PRN 09/17/19 09/19/19 History metformin 1,000 mg PO QPM 09/19/19 09/19/19 History krtsrsaq-skh-LR-lycopen-lutein 1 tab PO DAILY 09/19/19 09/19/19 History [Centrum Silver Men] sildenafil 25 mg PO PRN 09/19/19 09/19/19 History Allergies Allergy/AdvReac Type Severity Reaction Status Date / Time acetaminophen Allergy VERY SHORT Verified 09/17/19 09:17 [From Darvocet-N] OF BREATH penicillin G Allergy HIVES Verified 09/17/19 09:17 propoxyphene Allergy VERY SHORT Verified 09/17/19 09:17 [From Darvocet-N] OF BREATH Current Medications Current Medications Generic Name Dose Route Start Last Admin Trade Name Freq PRN Reason Stop Dose Admin Carvedilol 12.5 mg 09/19/19 18:00 09/19/19 17:21 Coreg PO 12.5 mg DAILY@1800 NELIDA Administration Clopidogrel Bisulfate 75 mg 09/19/19 10:45 09/19/19 11:31 Plavix PO 75 mg DAILY NELIDA Administration Enalapril Maleate 5 mg 09/19/19 18:00 09/19/19 17:21 Vasotec PO 5 mg BID NELIDA Administration Furosemide 20 mg 09/19/19 10:45 09/19/19 11:31 Lasix PO 20 mg DAILY NELIDA Administration Insulin Aspart 0 unit 09/19/19 12:00 09/19/19 17:22 Novolog SUBCUT 1 unit TIDWM NELIDA Administration Protocol Nitroglycerin 0.5 inch 09/19/19 10:15 09/19/19 15:35 Nitro-Bid TOPICAL 0.5 inch Q6H NELIDA Administration Pantoprazole Sodium 40 mg 09/19/19 18:00 09/19/19 17:21 Protonix PO 40 mg BID NELIDA Administration Potassium Chloride 20 meq 09/19/19 12:00 09/19/19 11:31 Klor-Con 10 PO 20 meq DAILY NELIDA Administration Spironolactone 12.5 mg 09/19/19 10:45 09/19/19 11:31 Aldactone PO 12.5 mg DAILY NELIDA Administration PFSH Acute PFSH: Statuses (acute, chronic, etc) shown below reflect problem list status as previously entered and may not be historically accurate Medical History (Updated 09/19/19 @ 18:58 by Tara Morrison MD) Adult-onset obesity (Acute) Anxiety (Acute) CAD (coronary artery disease) (Acute) Followed by Dr. Morrison, history of stenting and CABG GERD (gastroesophageal reflux disease) (Acute) Hyperlipidemia (Acute) Hypertension (Acute) Ischemic cardiomyopathy (Acute) PAD (peripheral artery disease) (Acute) Systolic congestive heart failure (Acute) last echo 10/2017- LVEF 40%, normal diastolic function, trace MR. Type 2 diabetes mellitus, without long-term current use of insulin (Inactive) Surgical History Coronary angioplasty status (Acute) 04/25/15: balloon angioplasty to PDA and PLB, GOMEZ to LAD patent, SVG to OM 1 patent, SVG to PDA patent. Prox RCA 60% stenosis. History of cardiac radiofrequency ablation (Acute) History of carpal tunnel release (Acute) History of cholecystectomy (Acute) History of femoropopliteal bypass (Acute) Left common femoral artery bypass surgery performed by Dr. Carrillo on 12/15/2014 History of surgery on extremity (Acute) 12/28/2014: Right groin and femoral artery exploration and primary repair of right femoral artery catheterization site History of umbilical hernia repair (Acute) S/P CABG x 3 (Acute) GOMEZ to LAD, SVG to OM1, SVG to PDA Family History Brother CAD (coronary artery disease) Diabetes Hyperlipidemia Hypertension Mother CAD (coronary artery disease) Cancer Diabetes Hyperlipidemia Hypertension Grandfather Cancer Father Diabetes Hyperlipidemia Hypertension Denies family history of Clotting disorder Dementia Psychiatric illness Chronic kidney disease (CKD) Suicide Anesthesia complication Bleeding disorder Family history of premature coronary artery disease Lung disease Stroke Social History Smoking and tobacco status: never smoked Alcohol intake: never Substance/Drug Use: never Dietary Habits: Current diet type/program: diabetic, low salt and low carbohydrate Caffeine: Yes Exercise: What type of physical activity do you participate in?: walking Physical activity functional status: independent ambulation How many days of moderate to strenuous exercise, like a brisk walk, did you do in the last 7 days: 2 Safety: Seatbelt use: always Home Safety: Working smoke detector in home: Yes Fire extinguisher in home: Yes Carbon monoxide detector in home: No Personal Safety: Do you feel safe at home: Yes Vitals/I&O/Wt Last Vital Signs Temp 98.1 F 09/19/19 15:29 Pulse 66 09/19/19 15:29 Resp 18 09/19/19 15:29 BP 152/83 09/19/19 15:29 Pulse Ox 94 09/19/19 15:29 09/19/19 09/19/19 09/19/19 06:59 14:59 22:59 Intake Total 240 / 240 120 / 360 Output Total 1450 / 1450 Balance 240 / 240 -1330 / -1090 Weight last 48 hrs Weight 248 lb Physical Exam Narrative: EXAM NARRATIVE: GENERAL: Patient is alert, awake and oriented x3. NECK: No jugular vein distension. HEENT: No cyanosis. No icterus. No pallor. HEART: Regular S1 and S2. No murmur, rub or gallop. LUNGS: Clear to auscultate bilaterally. ABDOMEN: Soft, nontender and nondistended. Positive bowel sounds. No guarding, rebound or tenderness. CENTRAL NERVOUS SYSTEM: Grossly nonfocal. EXTREMITIES: Lower extremities without edema bilaterally. Pulses palpable in the lower extremities, both dorsalis pedis and posterior tibial. A&P Assessment and plan (1) Chest pain: Patient is moderate to high risk for acute coronary syndrome With possible medical history for CABG more than 15 years ago for multivessel coronary artery disease hypertension hyperlipidemia and diabetes mellitus. His chest pain with shortness of breath is suggestive of angina. Will proceed with stress test. Further plan will be advised as per progress of patient. Continue current regimen. Status: Acute Qualifiers: Chest pain type: unspecified Qualified Code(s): R07.9 - Chest pain, unspecified Code(s): R07.9 - Chest pain, unspecified (2) Hypertension: Blood pressure is moderately elevated we will optimize medicine. Status: Acute Code(s): I10 - Essential (primary) hypertension (3) Hyperlipidemia: Continue statin. Status: Acute Code(s): E78.5 - Hyperlipidemia, unspecified (4) Systolic congestive heart failure: Well compensated. Continue medicine Status: Acute Code(s): I50.20 - Unspecified systolic (congestive) heart failure Consult Attestations Medical Necessity Statement: Patient Requires continuation of hospitalization for above defined Care. 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
[2019-09-19 21:26] LABS: Glucose Point of Care 132 mg/dL (70-110)
[2019-09-20] VITALS (7 sets, daily range): BP systolic 139–174; BP diastolic 73–83; PULSE 67–83; RESP 18; TEMP 36.6–36.8; O2SAT 94–98
[2019-09-20 04:30] LABS: Basophils # 0.1 10^3/uL (0.0-0.1); Basophils % 0.8 %; Eosinophils # 0.3 10^3/uL (0.0-0.8); Eosinophils % 4.2 %; Hematocrit 43.3 % (42.0-52.0); Hemoglobin 13.9 g/dL (11.7-16.6); Lymphocytes # 1.6 10^3/uL (0.8-4.8); Mean Corpuscular HGB Conc 32.1 g/dL (30.0-36.0); Mean Corpuscular Hemoglobin 29.2 pg (28.0-34.0); Mean Platelet Volume 10.4 fL (7.4-10.4); Monocytes # 0.9 10^3/uL (0.2-0.9); Monocytes % 11.8 %; Neutrophils # 4.7 10^3/uL (1.8-7.7); Neutrophils % 61.8 %; Nucleated Red Blood Cells % 0 %; Platelet Count 238 10^3/cmm (130-400); Red Blood Count 4.76 10^6/uL (4.1-5.3); Red Cell Distribution Width 12.8 % (12.1-15.1); White Blood Count 7.6 10^3/uL (4.0-10.0)
[2019-09-20] MEDS: nitroglycerin 1 gm/inch oint Pkt 0.5 INCH TOPICAL ×2 (04:47→09:40)
[2019-09-20 05:21] LABS: Blood Urea Nitrogen 13 mg/dL (8-23); Calcium 9.4 mg/dL (8.5-10.5); Carbon Dioxide 25 mmol/L (22-29); Chloride 100 mmol/L (98-107); Glucose 160 mg/dL (65-115); Osmolality Calculated 286 mOsm/kg (285-295); Sodium 138 mmol/L (136-145)
--- NOTE | 2019-09-20 06:14 | ECG_ITS ---
NAME OF STUDY: LEXISCAN SESTAMIBI STRESS TEST INDICATION: Chest Pain, NOTE: Please note that this is the electrocardiogram portion of the Lexiscan/Sestamibi stress test. The perfusion scan will be documented separately. DATA: Baseline heart rate was 72 beats per minute. Baseline blood pressure was 149/93 millimeters of mercury. Target heart rate was 156. Maximum heart rate achieved was 99. which was 63 % of the predicted target heart rate. Maximum blood pressure was 174/93 millimeters of mercury. The reason for ending the test was completion of the protocol. The patient did not experience any symptoms. ELECTROCARDIOGRAM: BASELINE: Sinus rhythm. Normal axis. Old anterior wall myocardial infarction, interventricular conduction delay nonspecific inferolateral ST depression. EXERCISE: After Lexiscan injection, no ST-T changes suggestive of ischemic noted. No arrhythmia noted. CONCLUSION: Please note due to baseline abnormality of the EKG specificity and sensitivity of the EKG portion of LexiScan MIBI stress test will be low 1. EKG not suggestive of ischemia 2. Lexiscan injection unremarkable. 3. Perfusion scan will be documented separately. Electronically Signed On 09-20-2019 15:16:46 CASING MACHINE OPERATOR by Tara Morrison M.D. [id number]
[2019-09-20 06:25] LABS: Glucose Point of Care 164 mg/dL (70-110)
[2019-09-20] MEDS: regadenoson 0.4 Mg/5 ml Syringe IVP (07:54)
--- NOTE | 2019-09-20 08:13 | PC.NURSE ---
PATIENT HELD IN CDL UNTIL 2ND NUC MED SCANS
[2019-09-20] MEDS: FUROsemide 20 mg Tablet PO (09:37)
[2019-09-20] MEDS: spironolactone 25 mg Tablet 12.5 MG PO (09:38)
[2019-09-20] MEDS: pantoprazole DR 40 mg Tablet PO (09:38)
[2019-09-20] MEDS: clopidogrel 75 mg Tablet PO (09:38)
[2019-09-20] MEDS: TRAMadol 50 mg Tablet PO (09:38)
[2019-09-20] MEDS: aspirin 81 mg Chew Tablet PO (09:38)
[2019-09-20 11:09] LABS: Glucose Point of Care 163 mg/dL (70-110)
--- NOTE | 2019-09-20 12:44 | PC.CHAP ---
Pastoral Care Encounter/Spiritual Assessment Type of Contact [] Declined senior tax analyst visit [] Patient/Family/Request visit [] Outpatient visit [] Follow-up visit [] Physician referral [] Code/Alert [x] Routine visit [] Staff referral [] Actively dying [] Patient sleeping [] Family support [] [] Out of room [] Palliative care [] [] Receiving care in room [] Pre-surgical visit [] Trauma [] Long length of stay [] ICU visit [] Other: Relational/Emotional Strength [x] Patient feels connected with others/family/visitors/staff [] Distress [] Loneliness/isolation [] Abandonment Spirituality of Patient [x] Person of [place] [x] Attends Pentecostalism of their [place] [x] Believes in Prayer [x] Reads Bible or Worship materials [] There are Spiritual issues to be addressed Crm Specialist Interventions [x] Prayer [x] Active listening [x] Non-anxious presence [x] Spiritual/emotional support [] Crisis/trauma care [] Spiritual counseling [] Bereavement support [] Provided bereavement packet [] Provided Bible/devotional materials [] Provided toy/stuffed animal, coloring book to patient or family member [] Provided Communion [] Anointing/[place] [] Salvation [x] Completed spiritual assessment [] Other: Impact on Illness or Injury [] Angry [] Fearful [] Anxious [] Often cries [] Exhaustion [] Unable to work [] Unable to attend hindu [] Unable to walk/stand [] Unable to read [] Unable to drive [] Unable to eat/drink [] Unable to sleep [] Unable to be with family [] Patient intubated [x] Other: Pt will be fully mobile after discharge. 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 Pt and this senior tax analyst are friends. Pt is in very god spirits. Spouse is with him and fully supportive. Pt is trusting God and Medical staff to help him medically heal. Once discharged, Pt plans to rest at home a few days before returning to volunteer senior tax analyst ministry. Spouse will see t hat he takes care of himself at home. Crm Specialist Naila Swan Time spent with patient 35 minutes
--- NOTE | 2019-09-20 19:00 | NMCV_ITS ---
NM lian perf SPECT r/s* [id number] Brad Dwayne Age: 64 Gender: M : 1955 Exam Date: 09/20/2019 07:01 Ordering Phys: Tara Morrison MD ([email or web address]) Technologist: TAMMY Harrison Exam Location: [facility] Indications: Chest pain STRESS TEST Please see separate stress test report in [facility] for full findings IMAGE PROTOCOL Rest/Stress 1 Lexiscan Day Radiopharmaceutical Dose (mCi) Administration Site Administered by Rest: Tc-99m 10.6 IV TAMMY Harrison Sestamibi Stress:Tc-99m 32.6 IV TAMMY Harrison Sestamibi Rest: 20-Sep-2019 60 Discovery 630 Stress: 20-Sep-2019 45 Discovery 630 0.4mg Lexiscan. Images obtained in supine and prone position. SPECT RESULTS Technical Quality: Good Raw Data Analysis: Normal Image Corrections: No attenuation or motion correction applied Summed Stress Score: 15 Summed Rest Score: 16 Summed Difference Score: 0 PERFUSION FINDINGS Large area fixed perfusion defect noted in the basal to distal inferior and inferoseptal wall suggestive of old myocardial infarction versus scarring. FUNCTIONAL RESULTS (calculated via Gated SPECT) Stress Image LV EF (%): 40 Stress EDV (mL):141 TID: 1.01 Stress ESV (mL):85 Rest Image LV EF (%): 40 FUNCTIONAL FINDINGS: Inferior wall akinesis IMPRESSIONS Large area for myocardial infarction versus scarring noted in the basal to distal inferior and inferoseptal wall suggestive of possible RCA territory old lesion. EKG segment will be documented separately. Perfusion scan is negative for ischemia Tara Morrison MD (Electronically Signed) Final Date: 20 September 2019 11:25 S
--- NOTE | 2019-09-20 19:41 | PM.DCS ---
Discharge Providers Date of Admission: 09/19/19 07:34 Date of Discharge: Date of Discharge: September 20, 2019 Attending Provider at Admission: Marley Charles DO Attending Provider at Discharge: Satinder Chapa Primary Care Provider: Teodoro Jon DO Diagnoses at Discharge Discharge Diagnosis (1) Chest pain: Status: Acute Qualifiers: Chest pain type: unspecified Qualified Code(s): R07.9 - Chest pain, unspecified (2) Hypertension: Status: Acute (3) Hyperlipidemia: Status: Acute (4) Systolic congestive heart failure: Status: Acute Problem details: last echo 10/2017- LVEF 40%, normal diastolic function, trace MR. Reason for Visit Reason for Visit: Reason For Visit: CP Hospital Course Hospital Course: 64-year-old gentleman placed in observation due to chest pain, with history of coronary disease, small vessel disease, systolic dysfunction, diabetes, was assessed by stress testing with finding of large area of myocardial infarction versus scarring in basal to distal inferior and inferior septal, possibly RCA territory old lesion without any active ischemia. Echocardiogram was with grade 2 diastolic dysfunction, 50% EF, global LV hypokinesis. He was assessed by cardiology, continued on medical management for optimization of risk factors for coronary disease, and cleared for discharge. This morning he was in good spirits, without any further chest pain, and happy to be returning home. Arrangements made for follow-up in office. Physical Exam Const: COMMON NORMALS: no apparent distress and oriented x3 HENMT: COMMON NORMALS: oropharynx normal Neck/C-Spine: COMMON NORMALS: no JVD Resp: COMMON NORMALS: normal respiratory effort and clear to auscultation bilaterally AUSCULTATION: clear to auscultation bilaterally Cardio: COMMON NORMALS: no JVD, regular rhythm, S1 normal heart sound, S2 normal heart sound and no murmurs RHYTHM: regular rhythm HEART SOUNDS: S1 normal and S2 normal GI: COMMON NORMALS: normal to inspection, nondistended, normoactive bowel sounds, soft to palpation and non-tender PALPATION: Yes soft Extremity: COMMON NORMALS: no joint enlargement and no pedal edema Neuro: COMMON NORMALS: oriented x3 and moves all extremities Skin: COMMON NORMALS: no rashes or lesions noted GENERAL SKIN EXAM: no rashes or lesions noted Discharge Data Data Completed and Pending: Completed Studies During Hospitalization Category Date Time Status Cardiac Stress Te st MIBI [Sestamibi Stress Test Reque st Exams 09/20/19 06:14 Completed ] Routine XR chest 1V shila ble [id number] Stat Exams 09/19/19 03:26 Completed NM lian perf SPECT r/s* [id number] Routin e Nuc Med 09/20/19 19:00 Completed CV echo complete* [id number] Routine Ultrasound 09/19/19 10:37 Completed Labs from last 24 hours 09/20/19 09/20/19 09/20/19 11:04 06:21 02:55 WBC RBC Hgb Hct MCV MCH MCHC RDW Plt Count MPV Neut % (Auto) Lymph % (Auto) [place] % (Auto) Eos % (Auto) Baso % (Auto) Neut # (Auto) Lymph # (Auto) [place] # (Auto) Eos # (Auto) Baso # (Auto) Nucleated RBC % (a uto) Nucleated RBCs # Sodium 138 Potassium 4.0 Chloride 100 Carbon Dioxide 25 Anion Gap 17.0 BUN 13 Creatinine 0.9 GFR Calculation 85.0 L Glucose 160 H POC Glucose 163 164 Calculated Osmolal ity 286 Calcium 9.4 09/20/19 09/19/19 02:55 21:19 WBC 7.6 RBC 4.76 Hgb 13.9 Hct 43.3 MCV 91.0 MCH 29.2 MCHC 32.1 RDW 12.8 Plt Count 238 MPV 10.4 Neut % (Auto) 61.8 Lymph % (Auto) 21.0 [place] % (Auto) 11.8 Eos % (Auto) 4.2 Baso % (Auto) 0.8 Neut # (Auto) 4.7 Lymph # (Auto) 1.6 [place] # (Auto) 0.9 Eos # (Auto) 0.3 Baso # (Auto) 0.1 Nucleated RBC % (a uto) 0 Nucleated RBCs # 0.0 Sodium Potassium Chloride Carbon Dioxide Anion Gap BUN Creatinine GFR Calculation Glucose POC Glucose 132 Calculated Osmolal ity Calcium Vitals: Last Vital Signs Temp 98.3 F 09/20/19 17:16 Pulse 79 09/20/19 17:16 Resp 18 09/20/19 17:16 BP 143/80 09/20/19 17:16 Pulse Ox 94 09/20/19 17:16 Discharge Plan Discharge Patient Disposition: Home, Self-Care Condition: Stable Prescriptions: New atorvastatin 40 mg Tablet 40 mg PO BEDTIME Qty: 30 RF: 0 Ranexa 500 mg tablet extended release 12 hr 500 mg PO BID Qty: 60 RF: 0 Continued clopidogrel 75 mg tablet 75 mg PO DAILY RF: 0 furosemide 20 mg tablet 20 mg PO DAILY RF: 0 spironolactone 25 mg tablet 12.5 mg PO DAILY RF: 0 enalapril maleate 5 mg tablet 5 mg PO BID RF: 0 carvedilol 25 mg tablet See Rx Instructions .ROUTE .COMPLEX RF: 0 omeprazole 20 mg capsule,delayed release(DR/EC) 20 mg PO BID RF: 0 tramadol 50 mg tablet 50 mg PO 6XD PRN (Reason: Pain) RF: 0 acetaminophen [Tylenol Extra Strength] 500 mg tablet 500 mg PO Q6H PRN (Reason: Pain) RF: 0 aspirin 81 mg tablet,chewable 81 mg PO DAILY RF: 0 cholecalciferol (vitamin D3) 2,000 unit tablet 2,000 unit PO DAILY RF: 0 nitroglycerin 0.4 mg tablet, sublingual 0.4 mg SUBLINGUAL Q5M PRN (Reason: Chest Pain) RF: 0 cyanocobalamin (vitamin B-12) [B-12 DOTS] 500 mcg tablet 500 mcg PO DAILY RF: 0 potassium chloride 20 mEq tablet extended release 20 meq PO DAILY RF: 0 sildenafil 25 mg Tablet 25 mg PO PRN RF: 0 metformin 500 mg Tablet Extended Release 24 Hr 1,000 mg PO QPM RF: 0 Centrum Silver Men 300-600-300 mcg Tablet 1 tab PO DAILY RF: 0 Discontinued simvastatin 20 mg tablet 20 mg PO DAILY RF: 0 Discharge Orders: Discharge Order (Routine); Ordered 09/20/19 Ordered By: Satinder Chapa Referrals: Tara Morrison MD [Physician] - 6 Weeks (PLEASE CALL FOR APPOINTMENT WITH HEART CARE) Teodoro Jon DO [Primary Care Provider] - 4-7 days Discharge Diet: Cardiac and Diabetic Discharge Activity: Increase activity as tolerated and Limit activity as instructed Patient Instructions: Atorvastatin (By mouth), Ranolazine (By mouth), Coronary Artery Disease (GEN), Chest Pain (GEN), Chest Pain Stoplight Activity Restrictions/Additional Instructions: Avoid lifting over 5 pounds for 3 days. If you experience recurrence of chest pain, or shortness of breath, bleeding or increased swelling around insertion site of the catheter, or other abnormal symptoms please seek medical attention. Please continue to monitor your blood pressure and glucose 3 times daily, record values to bring to your appointment. Discharge Date/Time: 09/20/19 16:30 Discharge Attestations Time Spent in Discharge Care*: greater than 30 min Quality Metrics Clinical Quality Measures During this hospital stay, did patient experience: None Coding Level of Care Code Acute Textile Supervisor for Chaparro Smithd Diagnoses Chest pain R07.9 Chest pain type: unspecified Hypertension I10 Hyperlipidemia E78.5 Systolic congestive heart failure I50.20
--- NOTE | 2019-09-20 21:05 | P.PN_ITS ---
Subjective Subjective: Interval history: Rule out for acute coronary syndrome. Patient underwent stress test which was not significant for ischemia. He is denying any more chest pain. Vitals/I&O/Wt Last Vital Signs Temp 98.3 F 09/20/19 17:16 Pulse 79 09/20/19 17:16 Resp 18 09/20/19 17:16 BP 143/80 09/20/19 17:16 Pulse Ox 94 09/20/19 17:16 09/20/19 09/20/19 09/20/19 06:59 14:59 22:59 Intake Total 480 / 480 240 / 720 Output Total 1025 / 3175 900 / 900 Balance -1025 / -2395 480 / 480 -660 / -180 Weight last 48 hrs Weight 249 lb 8 oz Weight 248 lb Physical Exam 2 Narrative: EXAM NARRATIVE: GENERAL: Patient is alert, awake and oriented x3. NECK: No jugular vein distension. HEENT: No cyanosis. No icterus. No pallor. HEART: Regular S1 and S2. No murmur, rub or gallop. LUNGS: Clear to auscultate bilaterally. ABDOMEN: Soft, nontender and nondistended. Positive bowel sounds. No guarding, rebound or tenderness. CENTRAL NERVOUS SYSTEM: Grossly nonfocal. EXTREMITIES: Lower extremities without edema bilaterally. Pulses palpable in the lower extremities, both dorsalis pedis and posterior tibial. Data : 09/20/19 02:55 09/20/19 02:55 A&P Assessment and plan (1) Chest pain: Most likely chest pain was atypical. He also has small vessel disease. He Took himself off isosorbide mononitrate as he was using Viagra.We will add Ranexa to his regimen. Medicine will be optimized. Advised to follow-up with me in 4-6 weeks or earlier if he has recurrent chest pain Status: Acute Qualifiers: Chest pain type: unspecified Qualified Code(s): R07.9 - Chest pain, unspecified Code(s): R07.9 - Chest pain, unspecified (2) Hypertension: Continue current regimen stable. Status: Acute Code(s): I10 - Essential (primary) hypertension (3) Hyperlipidemia: Continue statin. Status: Acute Code(s): E78.5 - Hyperlipidemia, unspecified (4) Systolic congestive heart failure: Well compensated. Continue medicine Status: Acute Code(s): I50.20 - Unspecified systolic (congestive) heart failure Attestations Medical Necessity Statement*: Patient can be discharged home from a cardiovascular perspective Coding Level of Care Code Established Pt Acute Infrastructure Project Manager for Taniyag Fwd Patient Type Established History Expanded Problem Focused Exam Expanded Problem Focused Medical Decision Making Moderate Complexity Diagnoses Chest pain R07.9 Chest pain type: unspecified Hypertension I10 Hyperlipidemia E78.5 Systolic congestive heart failure I50.20
== END 2019-09-20 16:30 | disposition home or self-care (01) ==
LOC: ER 06:48 → MEDSURG 08:06
PROVIDERS: Emergency Medicine; Admitting Provider Family Medicine; Emergency Provider Family Medicine; Family Provider Family Medicine; PCP Family Medicine; Visit Provider Internal Medicine
DX: R07.9 Chest pain, unspecified (principal); I25.118 Atherosclerotic heart disease of native coronary artery with other forms of angina pectoris; I10 Essential (primary) hypertension; E78.5 Hyperlipidemia, unspecified; E11.9 Type 2 diabetes mellitus without complications; I50.20 Unspecified systolic (congestive) heart failure; Z82.49 Family history of ischemic heart disease and other diseases of the circulatory system; Z79.4 Long term (current) use of insulin
CPT/HCPCS: 12345; 36415; 36416; 71045; 78452; 80048; 80053; 82962; 83690; 84484; 85025; 93005; 93017; 93306; 96372; 96374; 96375; 96376; 99283; 99285; A9500; G0378; J1650; J1815; J2270; J2785

== ENCOUNTER 2019-10-14 10:53 | Outpatient (RCR) | payer SELFPAY | END 2019-11-12 23:59 | disposition home or self-care (01) | LOC: CR 10:53 | PROVIDERS: Family Provider Family Medicine; PCP Family Medicine; Referring Provider Internal Medicine Cardiovascular Disease; Visit Provider Internal Medicine Cardiovascular Disease | DX: Z95.5 Presence of coronary angioplasty implant and graft (principal) ==

== ENCOUNTER 2020-10-13 18:56 | Emergency (ER) | payer MEDICARE, OTHER, SELFPAY ==
--- NOTE | 2020-10-13 18:58 | XR_ITS ---
WS: [id number] Portable AP upright chest, 10/13/2020 Clinical Data: cp Comparison: Portable chest, 09/19/2019. Findings: No nodules, masses or effusions are seen. The heart is slightly enlarged. The pulmonary vas cularity is not increased. No pneumonia or pneumothorax is seen. Midline sternotomy sutures are prese nt. The aortic arch shows calcification and mild tortuosity. XR/XR chest 1V portable [id number] Impression: Mild cardiomegaly and atherosclerosis.
--- NOTE | 2020-10-13 18:58 | ECG_ITS ---
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: : 1955 Requested By: Meaghan Hendrix Order Number: [id number] Reading MD: ANOOP BECK Measurements Intervals Whittaker Rate: 77 P: 19 KS: 243 QRS: 66 QRSD: 118 T: -55 QT: 363 QTc: 411 Interpretive Statements SINUS RHYTHM WITH FIRST DEGREE AV BLOCK WITH OCCASIONAL SUPRAVENTRICULAR PREMATURE COMPLEXES LOW QRS VOLTAGE IN PRECORDIAL LEADS [QRS DEFLECTION < 1.0 mV IN CHEST LEADS] ANTEROSEPTAL MYOCARDIAL INFARCTION [40+ ms Q WAVE IN V1-V4], OF INDETERMINATE AGE MODERATE T-WAVE ABNORMALITY, CONSIDER INFERIOR ISCHEMIA [-0.1+ mV T WAVE IN II/aVF] Compared to ECG 09/19/2019 09:57:40 There is no significant change Electronically Signed On 10-13-2020 19:50:20 SILVER DESIGNER by ANOOP BECK [id number]
[2020-10-13 19:03] VITALS: BP 143/79; PULSE 82; RESP 16; TEMP 37; O2SAT 93; BMI 35.5
[2020-10-13] MEDS: aspirin 81 mg Chew Tablet 324 MG PO (20:58)
--- NOTE | 2020-10-13 21:12 | ED_ITS ---
HPI - Chest Pain General: Chief Complaint: Chest Pain Stated Complaint: CHEST PAIN Time Seen by Provider: 10/13/20 20:35 Source: patient Mode of arrival: ambulatory Limitations: no limitations History of Present Illness: HPI narrative: 65-year-old male states he has a history of heart disease. He states he took a Viagra today at 2 and started having some chest pain at 230. He states had intermittent pressure type pain since then. He denies any vomiting denies any diarrhea. He denies any shortness of breath. He denies any worsening improving factors. He rates his pain a 2 out of 10 currently. Associated symptoms: Deny abdominal pain, dyspnea, fever(s), nausea or vomiting Review of Systems Const: Denies: fever(s), chills, body aches or change in appetite Eyes: Denies: blurry vision or eye discomfort ENMT: Denies: throat pain or dental pain Card: Reports: chest pain Resp: Denies: dyspnea GI: Denies: abdominal pain, nausea, vomiting or diarrhea : Denies: dysuria Musc: Denies: neck pain or back pain Skin/Breast: Denies: rash Neuro: Denies: headache(s) Psych: Denies: depression Marcus/Lymph: Denies: easy bruising All/Imm: Denies: urticaria PFSH ED PFSH: Medical History Adult-onset obesity Anxiety CAD (coronary artery disease) Followed by Dr. Morrison, history of stenting and CABG GERD (gastroesophageal reflux disease) Hyperlipidemia Hypertension Ischemic cardiomyopathy PAD (peripheral artery disease) Systolic congestive heart failure last echo 10/2017- LVEF 40%, normal diastolic function, trace MR. Type 2 diabetes mellitus, without long-term current use of insulin Surgical History Coronary angioplasty status 04/25/15: balloon angioplasty to PDA and PLB, GOMEZ to LAD patent, SVG to OM 1 patent, SVG to PDA patent. Prox RCA 60% stenosis. History of cardiac radiofrequency ablation History of carpal tunnel release History of cholecystectomy History of femoropopliteal bypass Left common femoral artery bypass surgery performed by Dr. Carrillo on 12/15/2014 History of surgery on extremity 12/28/2014: Right groin and femoral artery exploration and primary repair of right femoral artery catheterization site History of umbilical hernia repair S/P CABG x 3 GOMEZ to LAD, SVG to OM1, SVG to PDA Family History Brother CAD (coronary artery disease) Diabetes Hyperlipidemia Hypertension Mother CAD (coronary artery disease) Cancer Diabetes Hyperlipidemia Hypertension Grandfather Cancer Father Diabetes Hyperlipidemia Hypertension Denies family history of Clotting disorder Dementia Psychiatric illness Chronic kidney disease (CKD) Suicide Anesthesia complication Bleeding disorder Family history of premature coronary artery disease Lung disease Stroke Social History Smoking and tobacco status: never smoked Alcohol intake: never Physical Exam Const: COMMON NORMALS: no acute distress, patient oriented x3 and healthy appearing HENMT: COMMON NORMALS: normocephalic and atraumatic HEAD & SCALP: normocephalic and atraumatic Eye: COMMON NORMALS: Equal, round and reactive pupils present and EOMs intact bilaterally PUPIL: Yes Equal, round and reactive pupils present Neck/C-Spine: COMMON NORMALS: full ROM and supple Chest: COMMONS NORMALS: normal inspection of the chest and normal palpation of entire chest wall Resp: COMMON NORMALS: normal respiratory effort, No retractions, No use of accessory muscles and clear to auscultation bilaterally AUSCULTATION: clear to auscultation bilaterally Cardio: COMMON NORMALS: regular rate, regular rhythm and No murmurs present (Cardio) RATE: regular rate RHYTHM: regular rhythm GI: COMMON NORMALS: Normal to inspection, nondistended, normoactive bowel sounds present, Soft to palpation, non-tender and no masses PALPATION: Yes Soft to palpation Extremity: COMMON NORMALS: normal to inspection and full ROM Neuro: COMMON NORMALS: patient oriented x3, moves all extremities and no focal motor deficits Psych: COMMON NORMALS: mental status grossly normal, Normal thought process present and cooperative THOUGHT PROCESS: Normal thought process present Skin: COMMON NORMALS: no rashes or lesions noted and no wounds GENERAL SKIN EXAM: no rashes or lesions noted Course Vital Signs: Vital signs: Vital Signs Temperature 98.6 F 10/13/20 19:03 Pulse Rate 79 10/13/20 23:03 Respiratory Rate 25 H 10/13/20 23:03 Blood Pressure 149/78 10/13/20 23:03 Pulse Oximetry 93 03/02/21 23:03 MDM - Chest Pain MDM Narrative: Medical decision making narrative: Dwayne presents with chest pain is atypical in nature. Is since resolved here and is initial repeat troponins are both negative here. He is to follow-up with his mercury cracking tester in 2 to 4 days return to ER if worsening. He understands agrees to plan. He has no signs of pulmonary embolism or aortic dissection. Lab Data: Labs: Lab Results 10/13/20 10/13/20 10/13/20 Range/Units 21:07 21:07 21:07 WBC 8.0 (4.0-10.0) 10^3/ uL RBC 4.73 (4.1-5.3) 10^6/u L Hgb 13.5 (11.7-16.6) g/dL Hct 42.5 (42.0-52.0) % MCV 89.9 (80-94) fL MCH 28.5 (28.0-34.0) pg MCHC 31.8 (30.0-36.0) g/dL RDW 13.5 (12.1-15.1) % Plt Count 277 (130-400) 10^3/c mm MPV 10.2 (7.4-10.4) fL Neut % (Auto) 72.3 % Lymph % (Auto) 12.0 % Bell % (Auto) 10.0 % Eos % (Auto) 4.4 % Baso % (Auto) 0.8 % Neut # (Auto) 5.78 (1.8-7.7) 10^3/u L Lymph # (Auto) 1.0 (0.8-4.8) 10^3/u L Bell # (Auto) 0.8 (0.2-0.9) 10^3/u L Eos # (Auto) 0.4 (0.0-0.8) 10^3/u L Baso # (Auto) 0.1 (0.0-0.1) 10^3/u L Nucleated RBC % (a uto) 0 % Nucleated RBCs # 0.0 /100WBC Sodium 135 L (136-145) mmol/L Potassium 4.1 (3.5-5.1) mmol/L Chloride 100 (98-107) mmol/L Carbon Dioxide 25 (22-29) mmol/L Anion Gap 14.1 (5-19) BUN 12 (8-23) mg/dL Creatinine 0.8 (0.7-1.2) mg/dL GFR Calculation 97.0 (90-130) mL/min Glucose 191 H (65-115) mg/dL Calculated Osmolal ity 285 (285-295) mOsm/k g Calcium 8.6 (8.5-10.5) mg/dL Total Bilirubin 0.4 (0.15-1.2) mg/dL AST 13 (0-40) U/L ALT 17 (0-41) U/L Alkaline Phosphata se 85 (40-130) IU/L Troponin T Baselin e 11 (0-15) ng/L Troponin T 120 Min richard (0-15) ng/L Delta Troponin T (0-10) ABS# Total Protein 6.9 (6.6-8.7) g/dL Albumin 4.1 (3.5-5.2) g/dL Globulin 2.8 (1.3-4.6) g/dL 10/13/20 Range/Units 22:58 WBC (4.0-10.0) 10^3/ uL RBC (4.1-5.3) 10^6/u L Hgb (11.7-16.6) g/dL Hct (42.0-52.0) % MCV (80-94) fL MCH (28.0-34.0) pg MCHC (30.0-36.0) g/dL RDW (12.1-15.1) % Plt Count (130-400) 10^3/c mm MPV (7.4-10.4) fL Neut % (Auto) % Lymph % (Auto) % Bell % (Auto) % Eos % (Auto) % Baso % (Auto) % Neut # (Auto) (1.8-7.7) 10^3/u L Lymph # (Auto) (0.8-4.8) 10^3/u L Bell # (Auto) (0.2-0.9) 10^3/u L Eos # (Auto) (0.0-0.8) 10^3/u L Baso # (Auto) (0.0-0.1) 10^3/u L Nucleated RBC % (a uto) % Nucleated RBCs # /100WBC Sodium (136-145) mmol/L Potassium (3.5-5.1) mmol/L Chloride (98-107) mmol/L Carbon Dioxide (22-29) mmol/L Anion Gap (5-19) BUN (8-23) mg/dL Creatinine (0.7-1.2) mg/dL GFR Calculation (90-130) mL/min Glucose (65-115) mg/dL Calculated Osmolal ity (285-295) mOsm/k g Calcium (8.5-10.5) mg/dL Total Bilirubin (0.15-1.2) mg/dL AST (0-40) U/L ALT (0-41) U/L Alkaline Phosphata se (40-130) IU/L Troponin T Baselin e (0-15) ng/L Troponin T 120 Min richard 11.33 (0-15) ng/L Delta Troponin T 0.33 (0-10) ABS# Total Protein (6.6-8.7) g/dL Albumin (3.5-5.2) g/dL Globulin (1.3-4.6) g/dL EKG Data^: EKG 1: Attestation: I personally reviewed and interpreted this EKG as follows: EKG interpretation date: 10/13/20 EKG interpretation time: 19:01 Interpretation: nsr hr [address] or t wave abnormalities qrs 118 qtc 394 Discharge Plan Discharge Patient Disposition: Home Clinical Impression: Chest pain Qualifiers: Chest pain type: unspecified Qualified Code(s): R07.9 - Chest pain, unspecified Condition: Stable Prescriptions: No Action clopidogrel 75 mg tablet 75 mg PO DAILY RF: 0 furosemide 20 mg tablet 20 mg PO DAILY RF: 0 spironolactone 25 mg tablet 12.5 mg PO DAILY RF: 0 carvedilol 25 mg tablet See Rx Instructions .ROUTE .COMPLEX RF: 0 omeprazole 20 mg capsule,delayed release(DR/EC) 20 mg PO BID RF: 0 tramadol 50 mg tablet 50 mg PO 6XD PRN (Reason: Pain) RF: 0 acetaminophen [Tylenol Extra Strength] 500 mg tablet 500 mg PO Q6H PRN (Reason: Pain) RF: 0 aspirin 81 mg tablet,chewable 81 mg PO DAILY RF: 0 cholecalciferol (vitamin D3) 2,000 unit tablet 2,000 unit PO DAILY RF: 0 nitroglycerin 0.4 mg tablet, sublingual 0.4 mg SUBLINGUAL Q5M PRN (Reason: Chest Pain) RF: 0 cyanocobalamin (vitamin B-12) [B-12 DOTS] 500 mcg tablet 500 mcg PO DAILY RF: 0 potassium chloride 20 mEq tablet extended release 20 meq PO DAILY RF: 0 enalapril maleate 5 mg tablet 5 mg PO DAILY Qty: 90 RF: 3 simvastatin 20 mg tablet 20 mg PO DAILY RF: 0 escitalopram oxalate [Lexapro] 5 mg tablet 5 mg PO DAILY RF: 0 amlodipine 5 mg tablet 5 mg PO DAILY Qty: 90 RF: 3 sildenafil 25 mg Tablet 25 mg PO PRN RF: 0 metformin 500 mg Tablet Extended Release 24 Hr 1,000 mg PO QPM RF: 0 Centrum Silver Men 300-600-300 mcg Tablet 1 tab PO DAILY RF: 0 Ranexa 500 mg tablet extended release 12 hr 500 mg PO BID Qty: 60 RF: 0 Discharge Orders: Discharge ED (Routine); Ordered 10/13/20 Ordered By: Meaghan Hendrix Referrals: Teodoro Jon DO [Primary Care Provider] - Patient Instructions: Chest Pain (ED) Coding Level of Care Code ED Film Vault Supervisor for Taniyag Fwd Exam Comprehensive
[2020-10-13 21:24] VITALS: BP 157/66; PULSE 80; RESP 13; O2SAT 95
[2020-10-13] MEDS: morphine 4 mg/mL SDV 1 mL IVP ×2 (21:35→23:12)
[2020-10-13 21:36] VITALS: BP 152/81; PULSE 81; RESP 19; O2SAT 94
[2020-10-13 21:44] LABS: Alanine Aminotransferase 17 U/L (0-41); Albumin Level 4.1 g/dL (3.5-5.2); Alkaline Phosphatase 85 IU/L (40-130); Anion Gap 14.1 (5-19); Aspartate Amino Transferase 13 U/L (0-40); Blood Urea Nitrogen 12 mg/dL (8-23); Calcium 8.6 mg/dL (8.5-10.5); Carbon Dioxide 25 mmol/L (22-29); Chloride 100 mmol/L (98-107); Globulin 2.8 g/dL (1.3-4.6); Glucose 191 mg/dL (65-115); Osmolality Calculated 285 mOsm/kg (285-295); Potassium 4.1 mmol/L (3.5-5.1); Sodium 135 mmol/L (136-145); Total Bilirubin 0.4 mg/dL (0.15-1.2); Total Protein 6.9 g/dL (6.6-8.7)
[2020-10-13 21:45] LABS: Troponin(5th) Baseline 11 ng/L (0-15)
[2020-10-13 22:33] VITALS: BP 173/86; PULSE 80; RESP 25; O2SAT 92
[2020-10-13 23:03] VITALS: BP 149/78; PULSE 79; RESP 25; O2SAT 93
[2020-10-13 23:26] LABS: Basophils # 0.1 10^3/uL (0.0-0.1); Basophils % 0.8 %; Eosinophils # 0.4 10^3/uL (0.0-0.8); Eosinophils % 4.4 %; Hematocrit 42.5 % (42.0-52.0); Hemoglobin 13.5 g/dL (11.7-16.6); Mean Corpuscular HGB Conc 31.8 g/dL (30.0-36.0); Mean Corpuscular Hemoglobin 28.5 pg (28.0-34.0); Mean Corpuscular Volume 89.9 fL (80-94); Mean Platelet Volume 10.2 fL (7.4-10.4); Monocytes # 0.8 10^3/uL (0.2-0.9); Neutrophils # 5.78 10^3/uL (1.8-7.7); Neutrophils % 72.3 %; Nucleated Red Blood Cells % 0 %; Platelet Count 277 10^3/cmm (130-400); Red Blood Count 4.73 10^6/uL (4.1-5.3); Red Cell Distribution Width 13.5 % (12.1-15.1)
[2020-10-13 23:36] LABS: Troponin 5 2HR 11.33 ng/L (0-15); Troponin 5 2HR Delta 0.33 ABS# (0-10)
[2020-10-14 00:24] VITALS: BP 156/81; PULSE 82; RESP 16; O2SAT 92
== END 2020-10-14 00:24 | disposition home or self-care (01) ==
PROVIDERS: Emergency Provider Emergency Medicine; PCP Family Medicine
DX: R07.9 Chest pain, unspecified (principal); Z79.02 Long term (current) use of antithrombotics/antiplatelets; Z79.82 Long term (current) use of aspirin; Z79.84 Long term (current) use of oral hypoglycemic drugs; I25.10 Atherosclerotic heart disease of native coronary artery without angina pectoris; E78.5 Hyperlipidemia, unspecified; I11.0 Hypertensive heart disease with heart failure; I50.20 Unspecified systolic (congestive) heart failure; E11.9 Type 2 diabetes mellitus without complications; Z98.61 Coronary angioplasty status; Z95.1 Presence of aortocoronary bypass graft
CPT/HCPCS: 36415; 71045; 80053; 84484; 85025; 93005; 96374; 96376; 99284; J2270

== ENCOUNTER 2021-08-27 10:44 | Outpatient (CLI) | payer MEDICARE, SELFPAY ==
[2021-08-27 10:56] VITALS: BP 141/72; PULSE 73; RESP 16; TEMP 36.3; O2SAT 96; BMI 35.4
[2021-08-27 11:35] VITALS: BP 129/67; PULSE 71; RESP 16; TEMP 36.6; O2SAT 94
[2021-08-27 12:31] VITALS: BP 119/67; PULSE 61; RESP 16; TEMP 36.8; O2SAT 92
== END 2021-08-27 10:45 | disposition home or self-care (01) ==
PROVIDERS: PCP Family Medicine; Visit Provider Family Medicine
DX: U07.1 COVID-19 (principal)
CPT/HCPCS: 96365

== ENCOUNTER → 2021-11-08 15:10 | Outpatient (BNVA) | payer MEDICARE, SELFPAY | PROVIDERS: PCP Family Medicine; Visit Provider Internal Medicine Cardiovascular Disease | DX: I73.9 Peripheral vascular disease, unspecified (principal); I11.0 Hypertensive heart disease with heart failure; I50.20 Unspecified systolic (congestive) heart failure | CPT/HCPCS: 99214 ==

== ENCOUNTER 2022-03-30 19:20 | Emergency (ER) | payer MEDICARE, SELFPAY ==
--- NOTE | 2022-03-30 19:23 | ECG_ITS ---
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 Measurements Intervals [place] Rate: 72 P: NE: QRS: 47 QRSD: 123 T: 0 QT: 374 QTc: 410 Interpretive Statements ATRIAL FIBRILLATION MODERATE INTRAVENTRICULAR CONDUCTION DELAY [110+ ms QRS DURATION] NONSPECIFIC ST & T-WAVE ABNORMALITY ABNORMAL RHYTHM ECG Compared to ECG 10/13/2020 19:01:27 Intraventricular conduction delay now present Sinus rhythm no longer present First degree AV block no longer present Myocardial infarct finding no longer present Possible ischemia no longer present T-wave abnormality still present Electronically Signed On 03-30-2022 22:42:44 CDT by Patrick Moody M.D. [id number]
--- NOTE | 2022-03-30 19:23 | XRR_ITS ---
PROCEDURE INFORMATION: Exam: XR Chest Exam date and time: 03/30/2022 7:35 PM Age: 66 years old Clinical indication: Pain; Chest pressure; Prior surgery; Surgery date: 6+ months; Surgery type: Open heart, bypass, gallbladder; Additional info: Cp TECHNIQUE: Imaging protocol: Radiologic exam of the chest. Views: 1 view. COMPARISON: CR XR chest 1V portable [id number] 10/13/2020 7:27 PM FINDINGS: Lungs: Visualized portions of the lungs are clear. There is no pulmonary vascular congestion. Pleural spaces: Unremarkable. No pleural effusion. No pneumothorax. Heart/Mediastinum: Heart is mildly enlarged. Bones/joints: Sternotomy wires and mediastinal surgical clips are present, consistent with previous coronary arterial bypass grafting. XR/XR chest 1V portable [id number] IMPRESSION: Mild cardiomegaly. No acute infiltrate.
[2022-03-30 19:31] VITALS: BP 159/79; PULSE 75; RESP 16; TEMP 36.6; O2SAT 95; BMI 35.6
--- NOTE | 2022-03-30 20:34 | ED_ITS ---
HPI - Arrhythmia/Palpitations General: Chief Complaint: Arrhythmia/Palpitations Stated Complaint: Afib/Chest Pain Time Seen by Provider: 03/30/22 20:13 Source: patient Mode of arrival: ambulatory Limitations: no limitations History of Present Illness: 8-year-old male states he had a history of A. fib he states over the last 3 days he has had some palpitations he states he is also been having some chest pain he states that sharp pressure type pain he denies any worsening improving factors denies any nausea or diaphoresis. He denies any fevers his pain currently is a 2 out of 10. Associated symptoms: Deny nausea or vomiting Review of Systems Const: Denies: fever(s), chills, body aches or change in appetite Eyes: Denies: blurry vision or eye discomfort ENMT: Denies: throat pain or dental pain Card: Reports: palpitations; Denies: chest pain Resp: Denies: dyspnea GI: Denies: abdominal pain, nausea, vomiting or diarrhea : Denies: dysuria Musc: Denies: neck pain or back pain Skin/Breast: Denies: rash Neuro: Denies: headache(s) Psych: Denies: depression Marcus/Lymph: Denies: easy bruising All/Imm: Denies: urticaria PFSH ED PFSH: Medical History Adult-onset obesity Anxiety CAD (coronary artery disease) Followed by Dr. Morrison, history of stenting and CABG GERD (gastroesophageal reflux disease) Hyperlipidemia Hypertension Ischemic cardiomyopathy PAD (peripheral artery disease) Systolic congestive heart failure last echo 10/2017- LVEF 40%, normal diastolic function, trace MR. Type 2 diabetes mellitus, without long-term current use of insulin Surgical History Coronary angioplasty status 04/25/15: balloon angioplasty to PDA and PLB, GOMEZ to LAD patent, SVG to OM 1 patent, SVG to PDA patent. Prox RCA 60% stenosis. History of cardiac radiofrequency ablation History of carpal tunnel release History of cholecystectomy History of femoropopliteal bypass Left common femoral artery bypass surgery performed by Dr. Carrillo on 12/15/2014 History of surgery on extremity 12/28/2014: Right groin and femoral artery exploration and primary repair of right femoral artery catheterization site History of umbilical hernia repair S/P CABG x 3 GOMEZ to LAD, SVG to OM1, SVG to PDA Family History Brother CAD (coronary artery disease) Diabetes Hyperlipidemia Hypertension Mother CAD (coronary artery disease) Cancer Diabetes Hyperlipidemia Hypertension Grandfather Cancer Father Diabetes Hyperlipidemia Hypertension Denies family history of Clotting disorder Dementia Psychiatric illness Chronic kidney disease (CKD) Suicide Anesthesia complication Bleeding disorder Family history of premature coronary artery disease Lung disease Stroke Social History Smoking and tobacco status: never smoked Alcohol intake: never Physical Exam Const: COMMON NORMALS: no acute distress, patient oriented x3 and healthy ap pearing HENMT: COMMON NORMALS: normocephalic and atraumatic HEAD & SCALP: normocephalic and atraumatic Eye: COMMON NORMALS: Equal, round and reactive pupils present and EOMs intact bilaterally PUPIL: Yes Equal, round and reactive pupils present Neck/C-Spine: COMMON NORMALS: full ROM and supple Chest: COMMONS NORMALS: normal inspection of the chest and normal palpation of entire chest wall Resp: COMMON NORMALS: normal respiratory effort, No retractions, No use of accessory muscles and clear to auscultation bilaterally AUSCULTATION: clear to auscultation bilaterally Cardio: COMMON NORMALS: regular rate and No murmurs present (Cardio) RATE: regular rate RHYTHM: abnormal rhythm irregularly irregular GI: COMMON NORMALS: Normal to inspection, nondistended, normoactive bowel sounds present, Soft to palpation, non-tender and no masses PALPATION: Yes Soft to palpation Extremity: COMMON NORMALS: normal to inspection and full ROM Neuro: COMMON NORMALS: patient oriented x3, moves all extremities and no focal motor deficits Psych: COMMON NORMALS: mental status grossly normal, Normal thought process present and cooperative THOUGHT PROCESS: Normal thought process present Skin: COMMON NORMALS: no rashes or lesions noted and no wounds GENERAL SKIN EXAM: no rashes or lesions noted Course Vital Signs: Vital signs: Vital Signs Temperature 97.8 F 03/30/22 19:31 Pulse Rate 75 03/30/22 19:31 Respiratory Rate 14 03/30/22 23:28 Blood Pressure 159/79 03/30/22 19:31 Pulse Oximetry 96 03/30/22 23:28 Oxygen Delivery Me thod 03/30/22 19:31 MDM - Arrhythmia/Palpitations Medical Decision Making Patient presents chest pains atypical in nature initial repeat troponin here normal he has no signs of pneumonia or pulmonary embolism he is stable for discharge he is to follow-up with his occupational health nurse return if worsening he understands agrees to plan. Lab Data : 03/30/22 20:25 03/30/22 20:25 Radiology Impressions Chest X-Ray 03/30/22 19:23 IMPRESSION: Mild cardiomegaly. No acute infiltrate. Laboratory Results WBC 8.8 10^3/uL (4.0-10.0) 03/30/22 20:25 RBC 4.34 10^6/uL (4.1-5.3) 03/30/22 20:25 Hgb 12.1 g/dL (11.7-16.6) 03/30/22 20:25 Hct 38.4 % (42.0-52.0) L 03/30/22 20:25 MCV 88.5 fl (80-94) 03/30/22 20:25 MCH 27.9 pg (28.0-34.0) L 03/30/22 20:25 MCHC 31.5 g/dL (30.0-36.0) 03/30/22 20:25 RDW 13.6 % (12.1-15.1) 03/30/22 20:25 Plt Count 274 10^3/cmm (130-400) 03/30/22 20:25 MPV 9.9 fL (7.4-10.4) 03/30/22 20:25 Neut % (Auto) 58.4 % 03/30/22 20:25 Lymph % (Auto) 24.5 % 03/30/22 20:25 [place] % (Auto) 10.7 % 03/30/22 20:25 Eos % (Auto) 5.0 % 03/30/22 20:25 Baso % (Auto) 1.1 % 03/30/22 20:25 Neut # (Auto) 5.13 10^3/uL (1.8-7.7) 03/30/22 20:25 Lymph # (Auto) 2.2 10^3/uL (0.8-4.8) 03/30/22 20:25 [place] # (Auto) 0.9 10^3/uL (0.2-0.9) 03/30/22 20:25 Eos # (Auto) 0.4 10^3/uL (0.0-0.8) 03/30/22 20:25 Baso # (Auto) 0.1 10^3/uL (0.0-0.1) 03/30/22 20:25 Nucleated RBC % (auto) 0 % 03/30/22 20:25 Nucleated RBCs # 0.0 /100WBC 03/30/22 20:25 PT 13.70 SECONDS (12.1-14.9) 03/30/22 20:25 INR 1.02 (0.8-1.2) 03/30/22 20:25 Sodium 137 mmol/L (136-145) 03/30/22 20:25 Potassium 4.8 mmol/L (3.5-5.1) 03/30/22 20:25 Chloride 101 mmol/L (98-107) 03/30/22 20:25 Carbon Dioxide 25 mmol/L (22-29) 03/30/22 20:25 Anion Gap 15.8 (5-19) 03/30/22 20:25 BUN 16 mg/dL (8-23) 03/30/22 20:25 Creatinine 1.0 mg/dL (0.7-1.2) 03/30/22 20:25 GFR Calculation 74.8 mL/min (90-130) L 03/30/22 20:25 Glucose 186 mg/dL (65-115) H 03/30/22 20:25 Calculated Osmolality 290 mOsm/kg (285-295) 03/30/22 20:25 Calcium 9.0 mg/dL (8.5-10.5) 03/30/22 20:25 Total Bilirubin 0.5 mg/dL (0.15-1.2) 03/30/22 20:25 AST 20 U/L (0-40) 03/30/22 20:25 ALT 14 U/L (0-41) 03/30/22 20:25 Alkaline Phosphatase 84 U/L (40-130) 03/30/22 20:25 Troponin T Baseline 18 ng/L (0-15) H 03/30/22 20:25 Troponin T 120 Minute 15.58 ng/L (0-15) H 03/30/22 22:44 Delta Troponin T -2.42 ABS# (0-10) L 03/30/22 22:44 NT-Pro-B Natriuret Pep 944 pg/mL (0-125) H 03/30/22 20:25 Total Protein 7.2 g/dL (6.6-8.7) 03/30/22 20:25 Albumin 4.2 g/dL (3.5-5.2) 03/30/22 20:25 Globulin 3.0 g/dL (1.3-4.6) 03/30/22 20:25 EKG Data EKG 1: I personally reviewed and interpreted this EKG as follows: EKG interpretation date: 03/30/22 EKG interpretation time: 19:30 Interpretation: afib hr [address] or t wave abnormalities qrs 111 qtc 389 Other EKG comments: Chest X-Ray 03/30/22 19:23 IMPRESSION: Mild cardiomegaly. No acute infiltrate. Discharge Plan Discharge Patient Disposition: Home Clinical Impression: Chest pain, Atrial fibrillation Condition: Stable Prescriptions: No Action clopidogrel 75 mg tablet 75 mg PO DAILY furosemide 20 mg tablet 20 mg PO DAILY spironolactone 25 mg tablet 12.5 mg PO DAILY carvedilol 25 mg tablet See Rx Instructions .ROUTE .COMPLEX Rx Instructions: 25mg in the am and 12.5mg po pm omeprazole 20 mg capsule,delayed release(DR/EC) 20 mg PO BID tramadol 50 mg tablet 50 mg PO 6XD PRN (Reason: Pain) acetaminophen [Tylenol Extra Strength] 500 mg tablet 500 mg PO Q6H PRN (Reason: Pain) aspirin 81 mg tablet,chewable 81 mg PO DAILY cholecalciferol (vitamin D3) 2,000 unit tablet 2,000 unit PO DAILY nitroglycerin 0.4 mg tablet, sublingual 0.4 mg SUBLINGUAL Q5M PRN (Reason: Chest Pain) cyanocobalamin (vitamin B-12) [B-12 DOTS] 500 mcg tablet 500 mcg PO DAILY potassium chloride 20 mEq tablet extended release 20 meq PO DAILY enalapril maleate 5 mg tablet 5 mg PO BID ascorbic acid (vitamin C) 500 mg capsule PO simvastatin 20 mg tablet 20 mg PO DAILY escitalopram oxalate [Lexapro] 5 mg tablet 10 mg PO DAILY glyburide 1.25 mg tablet PO escitalopram oxalate 10 mg tablet 10 mg PO DAILY prednisone 20 mg tablet PO sildenafil 25 mg Tablet 25 mg PO PRN Centrum Silver Men 300-600-300 mcg Tablet 1 tab PO DAILY metformin 500 mg tablet extended release 24 hr 1,000 mg PO BID Discharge Orders: Discharge ED (Routine); Ordered 03/30/22 Ordered By: Meaghan Hendrix Referrals: Glory Simpson MD [Physician] - 1-3 days Teodoro Jon DO [Primary Care Provider] - Discharge Diet: Advance as tolerated Discharge Activity: Resume usual activity Patient Instructions: Chest Pain (ED) Coding Level of Care Code ED Rehabilitation Supervisor for Taniyag Fwd Exam Comprehensive
[2022-03-30 20:37] LABS: Basophils # 0.1 10^3/uL (0.0-0.1); Basophils % 1.1 %; Eosinophils # 0.4 10^3/uL (0.0-0.8); Hematocrit 38.4 % (42.0-52.0); Hemoglobin 12.1 g/dL (11.7-16.6); Lymphocytes # 2.2 10^3/uL (0.8-4.8); Lymphocytes % 24.5 %; Mean Corpuscular HGB Conc 31.5 g/dL (30.0-36.0); Mean Corpuscular Hemoglobin 27.9 pg (28.0-34.0); Mean Corpuscular Volume 88.5 fl (80-94); Mean Platelet Volume 9.9 fL (7.4-10.4); Monocytes # 0.9 10^3/uL (0.2-0.9); Monocytes % 10.7 %; Neutrophils # 5.13 10^3/uL (1.8-7.7); Neutrophils % 58.4 %; Nucleated Red Blood Cells % 0 %; Platelet Count 274 10^3/cmm (130-400); Red Blood Count 4.34 10^6/uL (4.1-5.3); Red Cell Distribution Width 13.6 % (12.1-15.1); White Blood Count 8.8 10^3/uL (4.0-10.0)
[2022-03-30 20:51] LABS: INR 1.02 (0.8-1.2)
[2022-03-30 20:54] VITALS: RESP 22; O2SAT 94
[2022-03-30] MEDS: morphine 4 mg/mL SDV 1 mL IVP ×2 (20:54→23:28)
[2022-03-30] MEDS: aspirin 81 mg Chew Tablet 324 MG PO (20:54)
[2022-03-30] MEDS: ondansetron 2 mg/ML SDV 2 mL 4 MG IVP (20:54)
[2022-03-30 21:11] LABS: Alanine Aminotransferase 14 U/L (0-41); Albumin Level 4.2 g/dL (3.5-5.2); Alkaline Phosphatase 84 U/L (40-130); Blood Urea Nitrogen 16 mg/dL (8-23); Carbon Dioxide 25 mmol/L (22-29); Chloride 101 mmol/L (98-107); Glomerular Filtration Rate 74.8 mL/min (90-130); Glucose 186 mg/dL (65-115); NT Pro B Type Natriuretic Pept 944 pg/mL (0-125); Osmolality Calculated 290 mOsm/kg (285-295); Sodium 137 mmol/L (136-145); Total Bilirubin 0.5 mg/dL (0.15-1.2); Total Protein 7.2 g/dL (6.6-8.7); Troponin(5th) Baseline 18 ng/L (0-15)
[2022-03-30 21:12] LABS: Anion Gap 15.8 (5-19); Aspartate Amino Transferase 20 U/L (0-40); Potassium 4.8 mmol/L (3.5-5.1)
[2022-03-30 22:00] VITALS: BP 162/70; PULSE 70; RESP 26; O2SAT 94
[2022-03-30 23:00] VITALS: BP 157/89; PULSE 73; RESP 18; O2SAT 93
[2022-03-30 23:28] VITALS: RESP 14; O2SAT 96
[2022-03-30 23:30] VITALS: BP 142/82; PULSE 70; RESP 27; O2SAT 92
[2022-03-30 23:37] LABS: Troponin 5 2HR 15.58 ng/L (0-15); Troponin 5 2HR Delta -2.42 ABS# (0-10)
[2022-03-31] VITALS: BP 156/86; PULSE 63; RESP 22; O2SAT 93
[2022-03-31 00:48] VITALS: BP 156/86; PULSE 75; RESP 20; O2SAT 94
--- NOTE | 2022-03-31 10:06 | DCPLANNER ---
Addendum entered by Dominga Sheldon 04/08/22 11:25: Patient had a follow up appointment scheduled for 04.06.22 with Nancy Baltazar at [facility]- patient did attend appointment. Addendum entered by Dominga Sheldon 04/01/22 13:55: Patient has a follow up appointment scheduled for Monday, April 06, 2022 at 2:15 with Nancy Baltazar. Clinic will call patient with appointment information. Original Note: fast food assistant restaurant manager had message to schedule a follow up appointment for patient with cardiology. fast food assistant restaurant manager sent patients information to the front office staff at [facility]. Patients information will be printed and reviewed. Clinic will call patient with appointment information.
== END 2022-03-31 00:23 | disposition home or self-care (01) ==
PROVIDERS: Emergency Provider Emergency Medicine; PCP Family Medicine
DX: I48.91 Unspecified atrial fibrillation (principal); R07.9 Chest pain, unspecified; Z79.84 Long term (current) use of oral hypoglycemic drugs; Z79.02 Long term (current) use of antithrombotics/antiplatelets; Z79.82 Long term (current) use of aspirin; I25.10 Atherosclerotic heart disease of native coronary artery without angina pectoris; E78.5 Hyperlipidemia, unspecified; I11.0 Hypertensive heart disease with heart failure; I50.20 Unspecified systolic (congestive) heart failure; E11.9 Type 2 diabetes mellitus without complications; Z98.61 Coronary angioplasty status; Z95.1 Presence of aortocoronary bypass graft
CPT/HCPCS: 71045; 80053; 83880; 84484; 85025; 85610; 93005; 96374; 96375; 96376; 99285; J2270; J2405

== ENCOUNTER → 2022-04-06 14:04 | Outpatient (BNVA) | payer MEDICARE, SELFPAY | PROVIDERS: PCP Family Medicine; Visit Provider Nurse Practitioner Family | DX: I48.91 Unspecified atrial fibrillation (principal); I25.10 Atherosclerotic heart disease of native coronary artery without angina pectoris; Z95.1 Presence of aortocoronary bypass graft; I11.0 Hypertensive heart disease with heart failure; I50.20 Unspecified systolic (congestive) heart failure; Z87.891 Personal history of nicotine dependence | CPT/HCPCS: 99214 ==

== ENCOUNTER 2022-04-18 22:00 | Inpatient (IN) | payer MEDICARE, SELFPAY ==
--- NOTE | 2022-04-18 22:01 | ECG_ITS ---
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 Measurements Intervals [place] Rate: 75 P: [place]: QRS: 28 QRSD: 127 T: -39 QT: 369 QTc: 414 Interpretive Statements ATRIAL FIBRILLATION POSSIBLE ANTERIOR MYOCARDIAL INFARCTION , OF INDETERMINATE AGE [30 ms Q WAVE IN V3/V4, OR R < 0.2 mV IN V4] Compared to ECG 03/30/2022 21:26:04 Myocardial infarct finding now present Intraventricular conduction delay no longer present T-wave abnormality no longer present Electronically Signed On 04-19-2022 16:38:55 CDT by Mary Funez M.D. [id number]
--- NOTE | 2022-04-18 22:01 | XRR_ITS ---
PROCEDURE INFORMATION: Exam: XR Chest Exam date and time: 04/18/2022 10:13 PM Age: 66 years old Clinical indication: Pain; Chest pressure; Additional info: Cp TECHNIQUE: Imaging protocol: Radiologic exam of the chest. Views: 1 view. COMPARISON: CR (CHEST, ) 03/30/2022 7:35 PM FINDINGS: Lungs: Unremarkable. No consolidation. Pleural spaces: Unremarkable. No pleural effusion. No pneumothorax. Heart/Mediastinum: CABG. Mild cardiomegaly. Bones/joints: Unremarkable. XR/XR chest 1V portable [id number] IMPRESSION: Negative exam.
[2022-04-18 22:03] VITALS: BP 127/74; PULSE 77; RESP 16; TEMP 36.9; O2SAT 92
--- NOTE | 2022-04-18 22:27 | ED_ITS ---
HPI - Chest Pain General: Chief Complaint: Chest Pain Stated Complaint: cp Time Seen by Provider: 04/18/22 22:01 Source: patient Mode of arrival: ambulatory Limitations: no limitations History of Present Illness: 66-year-old male who has a history of A. fib states he is mowing his yard today at 5 he states he felt like symptoms palpitations start him some chest pain is a pressure type pain he states took a nitro at home and since relieved his pain. He is pain-free currently denies any shortness of breath denies any nausea or diaphoresis denies any fevers. Associated symptoms: Reports palpitations; Deny abdominal pain, dyspnea, fever(s), nausea or vomiting Review of Systems Const: Denies: fever(s), chills, body aches or change in appetite Eyes: Denies: blurry vision or eye discomfort ENMT: Denies: throat pain or dental pain Card: Reports: chest pain and palpitations Resp: Denies: dyspnea GI: Denies: abdominal pain, nausea, vomiting or diarrhea : Denies: dysuria Musc: Denies: neck pain or back pain Skin/Breast: Denies: rash Neuro: Denies: headache(s) Psych: Denies: depression Marcus/Lymph: Denies: easy bruising All/Imm: Denies: urticaria PFSH ED PFSH: Medical History Adult-onset obesity Anxiety CAD (coronary artery disease) Followed by Dr. Morrison, history of stenting and CABG GERD (gastroesophageal reflux disease) Hyperlipidemia Hypertension Ischemic cardiomyopathy PAD (peripheral artery disease) Systolic congestive heart failure last echo 10/2017- LVEF 40%, normal diastolic function, trace MR. Type 2 diabetes mellitus, without long-term current use of insulin Surgical History Coronary angioplasty status 04/25/15: balloon angioplasty to PDA and PLB, GOMEZ to LAD patent, SVG to OM 1 patent, SVG to PDA patent. Prox RCA 60% stenosis. History of cardiac radiofrequency ablation History of carpal tunnel release History of cholecystectomy History of femoropopliteal bypass Left common femoral artery bypass surgery performed by Dr. Carrillo on 12/15/2014 History of surgery on extremity 12/28/2014: Right groin and femoral artery exploration and primary repair of right femoral artery catheterization site History of umbilical hernia repair S/P CABG x 3 GOMEZ to LAD, SVG to OM1, SVG to PDA Family History Brother CAD (coronary artery disease) Diabetes Hyperlipidemia Hypertension Mother CAD (coronary artery disease) Cancer Diabetes Hyperlipidemia Hypertension Grandfather Cancer Father Diabetes Hyperlipidemia Hypertension Denies family history of Clotting disorder Dementia Psychiatric illness Chronic kidney disease (CKD) Suicide Anesthesia complication Bleeding disorder Family history of premature coronary artery disease Lung disease Stroke Social History Smoking and tobacco status: former smoker (10/1994) Alcohol intake: never Physical Exam Const: COMMON NORMALS: no acute distress, patient oriented x3 and healthy appearing HENMT: COMMON NORMALS: normocephalic and atraumatic HEAD & SCALP: normocephalic and atraumatic Eye: COMMON NORMALS: Equal, round and reactive pupils present and EOMs intact bilaterally PUPIL: Yes Equal, round and reactive pupils present Neck/C-Spine: COMMON NORMALS: full ROM and supple Chest: COMMONS NORMALS: normal inspection of the chest and normal palpation of entire chest wall Resp: COMMON NORMALS: normal respiratory effort, No retractions, No use of accessory muscles and clear to auscultation bilaterally AUSCULTATION: clear to auscultation bilaterally Cardio: COMMON NORMALS: No murmurs present (Cardio) RHYTHM: abnormal rhythm irregularly irregular GI: COMMON NORMALS: Normal to inspection, nondistended, normoactive bowel sounds present, Soft to palpation, non-tender and no masses PALPATION: Yes Soft to palpation Extremity: COMMON NORMALS: normal to inspection and full ROM Neuro: COMMON NORMALS: patient oriented x3, moves all extremities and no focal motor deficits Psych: COMMON NORMALS: mental status grossly normal, Normal thought process present and cooperative THOUGHT PROCESS: Normal thought process present Skin: COMMON NORMALS: no rashes or lesions noted and no wounds GENERAL SKIN EXAM: no rashes or lesions noted Course Vital Signs: Vital signs: Vital Signs Temperature 98.4 F 04/18/22 22:03 Pulse Rate 73 04/18/22 23:55 Respiratory Rate 22 H 04/18/22 23:55 Blood Pressure 139/73 04/18/22 23:55 Pulse Oximetry 92 04/18/22 22:40 Oxygen Delivery Me thod 04/18/22 22:03 MDM - Chest Pain Medical Decision Making Proved here initial troponin here was 31 spoke to hospitalist will admit at this time for ACS rule out. Lab Data : 04/18/22 22:21 04/18/22 22:21 Radiology Impressions Chest X-Ray 04/18/22 22:01 IMPRESSION: Negative exam. Laboratory Results WBC 11.4 10^3/uL (4.0-10.0) H 04/18/22 22:21 RBC 4.52 10^6/uL (4.1-5.3) 04/18/22 22:21 Hgb 12.6 g/dL (11.7-16.6) 04/18/22 22:21 Hct 40.1 % (42.0-52.0) L 04/18/22 22:21 MCV 88.7 fl (80-94) 04/18/22 22:21 MCH 27.9 pg (28.0-34.0) L 04/18/22 22:21 MCHC 31.4 g/dL (30.0-36.0) 04/18/22 22: RDW 13.4 % (12.1-15.1) 04/18/22 22:21 Plt Count 264 10^3/cmm (130-400) 04/18/22 22:21 MPV 9.3 fL (7.4-10.4) 04/18/22 22:21 Neut % (Auto) 64.6 % 04/18/22 22:21 Lymph % (Auto) 20.8 % 04/18/22 22:21 [place] % (Auto) 9.3 % 04/18/22 22:21 Eos % (Auto) 4.1 % 04/18/22 22:21 Baso % (Auto) 0.8 % 04/18/22 22:21 Neut # (Auto) 7.33 10^3/uL (1.8-7.7) 04/18/22 22:21 Lymph # (Auto) 2.4 10^3/uL (0.8-4.8) 04/18/22 22:21 [place] # (Auto) 1.1 10^3/uL (0.2-0.9) H 04/18/22 22:21 Eos # (Auto) 0.5 10^3/uL (0.0-0.8) 04/18/22 22:21 Baso # (Auto) 0.1 10^3/uL (0.0-0.1) 04/18/22 22:21 Nucleated RBC % (auto) 0 % 04/18/22 22:21 Nucleated RBCs # 0.0 /100WBC 04/18/22 22:21 Sodium 139 mmol/L (136-145) 04/18/22 22:21 Potassium 4.6 mmol/L (3.5-5.1) 04/18/22 22:21 Chloride 102 mmol/L (98-107) 04/18/22 22:21 Carbon Dioxide 24 mmol/L (22-29) 04/18/22 22:21 Anion Gap 17.6 (5-19) 04/18/22 22:21 BUN 18 mg/dL (8-23) 04/18/22 22:21 Creatinine 1.3 mg/dL (0.7-1.2) H 04/18/22 22:21 GFR Calculation 55.2 mL/min (90-130) L 04/18/22 22:21 Glucose 138 mg/dL (65-115) H 04/18/22 22:21 Calculated Osmolality 292 mOsm/kg (285-295) 04/18/22 22:21 Calcium 9.4 mg/dL (8.5-10.5) 04/18/22 22:21 Total Bilirubin 0.3 mg/dL (0.15-1.2) 04/18/22 22:21 AST 15 U/L (0-40) 04/18/22 22:21 ALT 15 U/L (0-41) 04/18/22 22:21 Alkaline Phosphatase 98 U/L (40-130) 04/18/22 22:21 Troponin T Baseline 31 ng/L (0-15) H 04/18/22 22:21 Total Protein 6.7 g/dL (6.6-8.7) 04/18/22 22:21 Albumin 4.3 g/dL (3.5-5.2) 04/18/22 22:21 Globulin 2.4 g/dL (1.3-4.6) 04/18/22 22:21 EKG Data EKG 1: I personally reviewed and interpreted this EKG as follows: EKG interpretation date: 04/18/22 EKG interpretation time: 22:07 Interpretation: afib hr [address] or t wave abnormalities qrs 120 qtc 404 Discharge Plan Discharge Patient Disposition: Admitted As Inpatient Clinical Impression: Chest pain Condition: Stable Coding Level of Care Code ED [employer]oc[employer] Teacher for Chg Fwd Exam Comprehensive
[2022-04-18 22:33] LABS: Basophils # 0.1 10^3/uL (0.0-0.1); Basophils % 0.8 %; Eosinophils # 0.5 10^3/uL (0.0-0.8); Eosinophils % 4.1 %; Hematocrit 40.1 % (42.0-52.0); Hemoglobin 12.6 g/dL (11.7-16.6); Lymphocytes # 2.4 10^3/uL (0.8-4.8); Lymphocytes % 20.8 %; Mean Corpuscular HGB Conc 31.4 g/dL (30.0-36.0); Mean Corpuscular Hemoglobin 27.9 pg (28.0-34.0); Mean Corpuscular Volume 88.7 fl (80-94); Mean Platelet Volume 9.3 fL (7.4-10.4); Monocytes # 1.1 10^3/uL (0.2-0.9); Monocytes % 9.3 %; Neutrophils # 7.33 10^3/uL (1.8-7.7); Neutrophils % 64.6 %; Nucleated Red Blood Cells % 0 %; Platelet Count 264 10^3/cmm (130-400); Red Blood Count 4.52 10^6/uL (4.1-5.3); Red Cell Distribution Width 13.4 % (12.1-15.1); White Blood Count 11.4 10^3/uL (4.0-10.0)
[2022-04-18 22:40] VITALS: BP 117/63; PULSE 71; RESP 23; O2SAT 92
[2022-04-18] MEDS: HYDROmorphone 1 mg/mL INJ 1 mL 0.5 MG IVP (22:51)
[2022-04-18] MEDS: aspirin 81 mg Chew Tablet 324 MG PO (22:51)
[2022-04-18] MEDS: ondansetron 2 mg/ML SDV 2 mL 4 MG IVP (22:51)
[2022-04-18 22:54] LABS: Troponin(5th) Baseline 31 ng/L (0-15)
[2022-04-18 22:57] LABS: Alanine Aminotransferase 15 U/L (0-41); Albumin Level 4.3 g/dL (3.5-5.2); Alkaline Phosphatase 98 U/L (40-130); Anion Gap 17.6 (5-19); Aspartate Amino Transferase 15 U/L (0-40); Blood Urea Nitrogen 18 mg/dL (8-23); Calcium 9.4 mg/dL (8.5-10.5); Carbon Dioxide 24 mmol/L (22-29); Chloride 102 mmol/L (98-107); Globulin 2.4 g/dL (1.3-4.6); Glomerular Filtration Rate 55.2 mL/min (90-130); Glucose 138 mg/dL (65-115); Osmolality Calculated 292 mOsm/kg (285-295); Potassium 4.6 mmol/L (3.5-5.1); Sodium 139 mmol/L (136-145); Total Bilirubin 0.3 mg/dL (0.15-1.2); Total Protein 6.7 g/dL (6.6-8.7)
--- NOTE | 2022-04-18 23:20 | P.HP_ITS ---
Providers/Chief Complaint Primary Care Provider: Teodoro Jon DO Chief Complaint: cp History of Present Illness Dwayne Salinas is a 66 year old male with history of ablation for premature beats, A. fib, not on anticoagulation awaiting approval from insurance, history of coronary disease, CABG was following up with Dr. Smith presented today with chief complaint of 3 episode of chest pain. Patient is stating that for last couple weeks he has been extremely fatigued and lethargic. No COVID-related symptoms. Today around afternoon he was mowing his lawn when he start experiencing first episode of chest pain which he describing as pressure/heaviness which was going towards his shoulder blades, he went inside to rest, which eased up his pain, he started watching a movie with his and then he experienced a second episode with similar intensity, his third episode was while taking a cold shower, he came out of the shower and told his to take him to the ER, he took first dose of nitroglycerin which eased up his pain just for a few minutes and then he took a second dose which dropped his blood pressure 108/60, he decided not to take the third dose and came to the ER In the ER his pain is 5/10, white count is 11.4, hemoglobin 12, creatinine 1.3 First troponin 31 Chest x-ray showed mild vascular congestion I will cancel stress test and ask cardiology to evaluate him at the bedside tomorrow morning I think he will need an angiogram He has been diagnosed with A. 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 [employer] Review of Systems Const: Reports: body aches and fatigue; Denies: fever(s) or chills Eyes: Denies: change in vision ENMT: Denies: throat pain Card: Reports: chest pain, palpitations, dyspnea on exertion and orthopnea Resp: Reports: dyspnea GI: Denies: abdominal pain : Denies: flank pain Musc: Denies: neck pain Skin/Breast: Denies: rash Neuro: Denies: headache(s) Psych: Denies: anxiety Endo: Denies: polyuria Marcus/Lymph: Denies: easy bruising All/Imm: Denies: urticaria Medications/Allergies Home Medications Medication Instructions Recorded Confirmed Last Taken Type acetaminophen 500 mg tablet 500 mg PO Q6H PRN Pain 09/17/19 04/06/22 Unknown History (Tylenol Extra Strength) aspirin 81 mg chewable tablet 81 mg PO DAILY 09/17/19 04/06/22 09/18/19 History 81 mg carvedilol 25 mg tablet See Rx Instructions .Route .COMPLEX 09/17/19 04/06/22 09/19/19 History 25 mg cholecalciferol (vitamin D3) 50 2,000 unit PO DAILY 09/17/19 04/06/22 09/18/19 History mcg (2,000 unit) tablet 2000 clopidogrel 75 mg tablet 75 mg PO DAILY 09/17/19 04/06/22 09/18/19 History 75 mg cyanocobalamin (vitamin B-12) 500 500 mcg PO DAILY 09/17/19 04/06/22 09/18/19 History mcg tablet (B-12 DOTS) 500 mcg furosemide 20 mg tablet 20 mg PO DAILY 09/17/19 04/06/22 09/18/19 History 20 mg nitroglycerin 0.4 mg sublingual 0.4 mg sublingual Q5M PRN Chest 09/17/19 04/06/22 09/19/19 History tablet Pain 0.4 mg omeprazole 20 mg capsule,delayed 20 mg PO BID 09/17/19 04/06/22 09/18/19 History release 20 mg potassium chloride 20 mEq 20 meq PO DAILY 09/17/19 04/06/22 09/18/19 History tablet,extended release 20 mEq spironolactone 25 mg tablet 12.5 mg PO DAILY 09/17/19 04/06/22 09/18/19 History 25 mg tramadol 50 mg tablet 50 mg PO 6XD PRN Pain 09/17/19 04/06/22 09/18/19 History 50 mg ngaewoki-qal-mblya acid 300 1 tab PO DAILY 09/19/19 04/06/22 Unknown History mcg-lycopene 600 mcg-lutein 300 mcg tablet (Centrum Silver Men) simvastatin 20 mg tablet 20 mg PO DAILY 10/25/19 04/06/22 Unknown History ascorbic acid (vitamin C) 500 mg mg PO 10/19/20 04/06/22 Unknown History capsule enalapril maleate 5 mg tablet 5 mg PO BID 10/19/20 04/06/22 Unknown History escitalopram oxalate 5 mg tablet 10 mg PO DAILY 10/19/20 04/06/22 Unknown History (Lexapro) metformin 500 mg tablet,extended 1,000 mg PO BID 05/13/21 04/06/22 Unknown History release 24 hr escitalopram oxalate 10 mg tablet 10 mg PO DAILY 03/24/22 04/06/22 Unknown History glyburide 1.25 mg tablet ea PO 03/24/22 04/06/22 Unknown History prednisone 20 mg tablet ea PO 03/24/22 04/06/22 Unknown History sildenafil 25 mg tablet 25 mg PO PRN #30 tabs 04/08/22 Unknown Rx Allergies Allergy/AdvReac Type Severity Reaction Status Date / Time penicillin G Allergy HIVES Verified 04/18/22 22:10 propoxyphene Allergy VERY SHORT Verified 04/18/22 22:10 [From Darcarment-N] OF BREATH PFSH Acute PFSH: Medical History Adult-onset obesity Anxiety CAD (coronary artery disease) Followed by Dr. Morrison, history of stenting and CABG GERD (gastroesophageal reflux disease) Hyperlipidemia Hypertension Ischemic cardiomyopathy PAD (peripheral artery disease) Systolic congestive heart failure last echo 10/2017- LVEF 40%, normal diastolic function, trace MR. Type 2 diabetes mellitus, without long-term current use of insulin Surgical History Coronary angioplasty status 04/25/15: balloon angioplasty to PDA and PLB, GOMEZ to LAD patent, SVG to OM 1 patent, SVG to PDA patent. Prox RCA 60% stenosis. History of cardiac radiofrequency ablation History of carpal tunnel release History of cholecystectomy History of femoropopliteal bypass Left common femoral artery bypass surgery performed by Dr. Carrillo on 12/15/2014 History of surgery on extremity 12/28/2014: Right groin and femoral artery exploration and primary repair of right femoral artery catheterization site History of umbilical hernia repair S/P CABG x 3 GOMEZ to LAD, SVG to OM1, SVG to PDA Family History Brother CAD (coronary artery disease) Diabetes Hyperlipidemia Hypertension Mother CAD (coronary artery disease) Cancer Diabetes Hyperlipidemia Hypertension Grandfather Cancer Father Diabetes Hyperlipidemia Hypertension Denies family history of Clotting disorder Dementia Psychiatric illness Chronic kidney disease (CKD) Suicide Anesthesia complication Bleeding disorder Family history of premature coronary artery disease Lung disease Stroke Social History Smoking and tobacco status: former smoker (10/1994) Alcohol intake: never Vitals/I&O/Wt Last Vital Signs Temp 98.4 F 04/18/22 22:03 Pulse 71 04/18/22 22:40 Resp 23 H 04/18/22 22:40 BP 117/63 04/18/22 22:40 Pulse Ox 92 04/18/22 22:40 O2 Del Method 04/18/22 22:03 Weight last 48 hrs Weight 115.212 kg Physical Exam Narrative: Pleasant cooperative male Currently pleasant and cooperative No active shortness of breath Complaining of chest discomfort 5/10 Variability Abdomen soft No signs of edema CABG scar present Currently doing well on room air Nonfocal neuro exam Appropriate mood and affect Data : 04/18/22 22:21 04/18/22 22:21 A&P Assessment and plan (1) Unstable angina: Status: Acute (2) Atherosclerosis of coronary artery of [place] heart without angina pectoris: Status: Acute (3) S/P CABG x 3: Status: Acute (4) Systolic congestive heart failure: Status: Acute (5) PAD (peripheral artery disease): Status: Acute Plan Unstable angina Established history of coronary disease History of CABG Will ask cardiology to evaluate him at the bedside I would not do stress test He still complaining of chest discomfort 5/10 Response to nitroglycerin Currently hemodynamically stable Serial troponin and EKG Chest x-ray unremarkable I will continue his aspirin, Plavix and add Eliquis for his A. fib A. fib without RVR Keep potassium above 4, magnesium above 2 Check D-dimer and TSH Full code N.p.o. after midnight He does not meet criteria to start ACS protocol DVT prophylaxis Heparin DIGNA Seems secondary to dehydration, hold enalapril Attestations Medical Necessity Statement*: Anticipating less than 2 midnights for evaluat ion of unstable angina Time Spent in Patient Care: 40 Coding Level of Care Code Acute Food Expeditor for [facility] Fwd Diagnoses Unstable angina I20.0 Atherosclerosis of coronary artery of [place] heart without angina pectoris I25.10 S/P CABG x 3 Z95.1 Systolic congestive heart failure I50.20 PAD (peripheral artery disease) I73.9
[2022-04-18 23:55] VITALS: BP 139/73; PULSE 73; RESP 22
[2022-04-19] VITALS (17 sets, daily range): BP systolic 108–139; BP diastolic 68–78; PULSE 64–79; RESP 14–25; TEMP 36.6–36.8; O2SAT 90–97
[2022-04-19 00:08] LABS: D Dimer 0.88 ug/mIFEU (0-0.59)
--- NOTE | 2022-04-19 00:12 | USCV_ITS ---
Dwayne Salinas Age: 66 Gender: M : 1955 Exam Date: 04/19/2022 01:56 Ordering Phys: Tara Steele MD Technologist: STEVEN [place]am [place] [facility] [place]: Palpitations. BP: 139 / 73 HR: 73 Rhythm: Atrial fibrillation Technical Quality: Adequate MEASUREMENTS (Male / Female) Normal Values 2D ECHO LV Diastolic Diameter PLAX 4.1 cm 4.2 - 5.9 / 3.9 - 5.3 cm LV Systolic Diameter PLAX 3.0 cm IVS Diastolic Thickness 1.5 cm 0.6 - 1.0 / 0.6 - 0.9 cm IVS Systolic Thickness 1.8 cm LVPW Diastolic Thickness 1.3 cm 0.6 - 1.0 / 0.6 - 0.9 cm LVPW Systolic Thickness 1.4 cm LVOT Diameter 2.1 cm LV Ejection Fraction 2D Teich 51.7 % LV Ejection Fraction MOD 2C 52.8 % LV Ejection Fraction 2C AL 52.1 % LA Diameter 5.3 cm LA Width 6.3 cm LA Height 6.4 cm RA Width 4.3 cm RA Height 5.1 cm IVC Diameter 1.8 cm M-MODE Aortic Annulus Diameter 3.3 cm LA Ao Ratio MM 1.6 MV E Point Septal Separation 0.4 cm DOPPLER AV Peak Velocity 99.0 cm/s LVOT Peak Velocity 82.0 cm/s AV Area Cont Eq vti 3.1 cm squared AV Area Cont Eq pk 2.8 cm squared MV Area PHT 5.0 cm squared MV E' Velocity 66.5 cm/s Mitral E to MV E' Ratio 13.4 Mitral E to LV E' Lateral Ratio 11.3 Mitral E to LV E' Septal Ratio 16.7 TR Peak Velocity 212.0 cm/s TR Peak Gradient 18.0 mmHg TV Peak E Velocity 57.0 cm/s Right Atrial Pressure 10.0 mmHg Pulmonary Artery Systolic Pressu 28.0 mmHg PV Peak Velocity 106.0 cm/s RV Acceleration Time 0.0 s RV Ejection Time 0.3 s RV AcT/ET 0.1 FINDINGS Left Ventricle Normal left ventricular size, systolic function and wall thickness. Left ventricular ejection fraction is mildly reduced with ejection fraction estimated at 50 %. There seems to be hypokinesis of distal septal and inferior martino. Rhythm precludes evaluation of diastolic function. Abnormal septal motion. Right Ventricle Normal right ventricular size and systolic function. RVSP could not be calculated due to incomplete tricuspid regurgitation velocity profile. Right Atrium Normal right atrial size. Left Atrium Mildly increased left atrial size. Mitral Valve Structurally normal mitral valve. No mitral valve stenosis. Trace mitral valve regurgitation. Aortic Valve Structurally normal trileaflet aortic valve. No aortic valve stenosis. No aortic valve regurgitation. Tricuspid Valve Structurally normal tricuspid valve. Trace tricuspid valve regurgitation. Pulmonic Valve Pulmonic valve not well visualized. No pulmonary valve stenosis. Trace pulmonary valve regurgitation. Pericardium No pericardial effusion. Aorta Normal-sized aortic root. IVC Normal IVC dimension with >50% respiratory change of the inferior vena cava. CONCLUSIONS 1. Normal left ventricular size, systolic function and wall thickness. Left ventricular ejection fraction is mildly reduced with ejection fraction estimated at 50 %. There seems to be hypokinesis of distal septal and inferior martino. Abnormal septal motion. 2. Normal right ventricular size and systolic function. 3. No significant change when compared to echo dated 09/19/2019. Mary Funez MD (Electronically Signed) Final Date: 19 April 2022 16:29 S
[2022-04-19 00:28] LABS: Troponin 5 2HR 29.12 ng/L (0-15)
[2022-04-19 00:34] LABS: Troponin 5 2HR Delta -1.88 ABS# (0-10)
[2022-04-19 00:39] LABS: Glucose Point of Care 128 mg/dL (70-110)
[2022-04-19] MEDS: morphine IR 15 mg Tablet PO ×3 (00:48→18:17)
[2022-04-19] MEDS: heparin 5,000 unit/mL INJ 1 mL 5000 UNIT SUBCUT (00:49)
--- NOTE | 2022-04-19 02:46 | ECG_ITS ---
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 Measurements Intervals [place] Rate: 69 P: IN: QRS: 55 QRSD: 121 T: 0 QT: 395 QTc: 423 Interpretive Statements ATRIAL FIBRILLATION MODERATE INTRAVENTRICULAR CONDUCTION DELAY [110+ ms QRS DURATION] NONSPECIFIC T-WAVE ABNORMALITY ABNORMAL RHYTHM ECG Compared to ECG 04/18/2022 23:50:32 Intraventricular conduction delay now present T-wave abnormality now present Myocardial infarct finding no longer present Electronically Signed On 04-19-2022 16:43:55 CDT by Mary Funez M.D. [email or web address]
[2022-04-19 05:50] LABS: Basophils # 0.1 10^3/uL (0.0-0.1); Eosinophils # 0.5 10^3/uL (0.0-0.8); Eosinophils % 4.8 %; Hemoglobin 12.2 g/dL (11.7-16.6); Lymphocytes % 30.5 %; Mean Corpuscular HGB Conc 30.5 g/dL (30.0-36.0); Mean Corpuscular Hemoglobin 27.5 pg (28.0-34.0); Mean Corpuscular Volume 90.3 fl (80-94); Monocytes % 10.2 %; Neutrophils # 5.21 10^3/uL (1.8-7.7); Neutrophils % 52.9 %; Nucleated Red Blood Cells % 0 %; Platelet Count 249 10^3/cmm (130-400); Red Blood Count 4.43 10^6/uL (4.1-5.3); Red Cell Distribution Width 13.7 % (12.1-15.1); White Blood Count 9.9 10^3/uL (4.0-10.0)
[2022-04-19] MEDS: nitroglycerin 0.4 mg sublingual Tablet SUBLINGUAL (06:02)
--- NOTE | 2022-04-19 06:05 | PC.NURSE ---
Hospitalist contacted regarding patient's 2nd episode of chest pain since arrival. Order received to give sL nitro and may give next dose of morphine 15mg po early.
[2022-04-19 06:10] LABS: Troponin 5 6HR 33.98 ng/L (0-15)
[2022-04-19 06:12] LABS: Troponin 5 6HR Delta 2.98 ng/L (0-12)
[2022-04-19 06:20] LABS: Anion Gap 15.3 (5-19); Blood Urea Nitrogen 20 mg/dL (8-23); C Reactive Protein 4.5 mg/L (0.0-4.9); Calcium 8.8 mg/dL (8.5-10.5); Carbon Dioxide 25 mmol/L (22-29); Chloride 101 mmol/L (98-107); Glomerular Filtration Rate 74.8 mL/min (90-130); Glucose 103 mg/dL (65-115); Magnesium 1.9 mg/dL (1.7-2.3); Osmolality Calculated 287 mOsm/kg (285-295); Potassium 4.3 mmol/L (3.5-5.1); Sodium 137 mmol/L (136-145)
[2022-04-19 06:38] LABS: Glucose Point of Care 140 mg/dL (70-110)
[2022-04-19 07:52] LABS: Amphetamines Screen Urine Negative (Negative); Barbiturates Screen Urine Negative (Negative); Benzodiazepines Screen Urine Negative (Negative); Cocaine Screen Urine Negative (Negative); Opiate Screen Urine Positive (Negative); PCP Screen Urine Negative (Negative); THC Screen Urine Negative (Negative)
[2022-04-19] MEDS: aspirin 81 mg Chew Tablet PO (08:14)
[2022-04-19] MEDS: enoxaparin 120 mg/0.8 mL Syringe SUBCUT (08:14)
[2022-04-19] MEDS: clopidogrel 75 mg Tablet PO (08:15)
[2022-04-19] MEDS: carvedilol 25 mg Tablet PO (08:15)
--- NOTE | 2022-04-19 10:18 | P.CONIM_ITS ---
Providers/Reason For Consult Consulting Physician/Specialty*: Patrick Moody MD/Cardiology Reason for Consult*: Worsening angina Requesting Physician: Dr Steele Attending Physician: Tara Steele MD Primary Care Provider: Teodoro Jon DO History of Present Illness History of Present Illness Dwayne Salinas is a 66 year old male with past medical history of CAD s/p CABG with patent SVG to OM and RCA and GOMEZ to LAD in 2015, peripheral artery disease with left-sided bypass, diabetes and hypertension who has presented to hospital with 3 weeks of on and off chest pain. It has been getting worse. Substernal that radiates to the left arm. Similar to his prior episodes of angina when he had the bypass. Yesterday had 2 episodes which did not resolve with nitro. He came to the hospital. Troponins have not trended up si gnificantly. He has also been diagnosed with atrial fibrillation however is not on anticoagulation. EKG shows atrial fibrillation with controlled heart rate and no significant ST-T wave changes. Review of Systems Const: Reports: body aches and fatigue; Denies: fever(s) or chills Eyes: Denies: change in vision ENMT: Denies: throat pain Card: Reports: chest pain, palpitations, dyspnea on exertion and orthopnea Resp: Reports: dyspnea GI: Denies: abdominal pain : Denies: flank pain Musc: Denies: neck pain Skin/Breast: Denies: rash Neuro: Denies: headache(s) Psych: Denies: anxiety Endo: Denies: polyuria Marcus/Lymph: Denies: easy bruising All/Imm: Denies: urticaria Medications/Allergies Home Medications Medication Instructions Recorded Confirmed Last Taken Type acetaminophen 500 mg tablet 1,000 mg PO TID PRN Pain 09/17/19 04/19/22 Unknown History (Tylenol Extra Strength) aspirin 81 mg chewable tablet 81 mg PO BEDTIME 09/17/19 04/19/22 09/18/19 History 81 mg carvedilol 25 mg tablet See Rx Instructions .Route .COMPLEX 09/17/19 04/19/22 09/19/19 History 25 mg cholecalciferol (vitamin D3) 50 2,000 unit PO QAM 09/17/19 04/19/22 09/18/19 History mcg (2,000 unit) tablet 2000 clopidogrel 75 mg tablet 75 mg PO QAM 09/17/19 04/19/22 09/18/19 History 75 mg furosemide 20 mg tablet 20 mg PO QAM 09/17/19 04/19/22 09/18/19 History 20 mg omeprazole 20 mg capsule,delayed 20 mg PO BID 09/17/19 04/19/22 09/18/19 History release 20 mg potassium chloride 20 mEq 20 meq PO QAM 09/17/19 04/19/22 09/18/19 History tablet,extended release 20 mEq spironolactone 25 mg tablet 12.5 mg PO QAM 09/17/19 04/19/22 09/18/19 History 25 mg tramadol 50 mg tablet 100 mg PO TID PRN Pain 09/17/19 04/19/22 09/18/19 History 50 mg cnuhdyxe-yva-aydac acid 300 1 tab PO QAM 09/19/19 04/19/22 Unknown History mcg-lycopene 600 mcg-lutein 300 mcg tablet (Centrum Silver Men) simvastatin 20 mg tablet 20 mg PO BEDTIME 10/25/19 04/19/22 Unknown History enalapril maleate 5 mg tablet 5 mg PO BID 10/19/20 04/19/22 Unknown History metformin 500 mg tablet,extended 1,000 mg PO BID 05/13/21 04/19/22 Unknown History release 24 hr escitalopram oxalate 10 mg tablet 10 mg PO QAM 03/24/22 04/19/22 Unknown History glyburide 1.25 mg tablet 1.25 mg PO QAM 03/24/22 04/19/22 Unknown History sildenafil 25 mg tablet 25 mg PO PRN #30 tabs 04/08/22 04/19/22 Unknown Rx ascorbic acid (vitamin C) 1,000 mg 1,000 mg PO QAM 04/19/22 04/19/22 Unknown History tablet (Vitamin C) cyanocobalamin (vitamin B-12) 1,000 mcg PO QAM 04/19/22 04/19/22 Unknown History 1,000 mcg tablet (Vitamin B-12) nitroglycerin 0.4 mg sublingual 0.4 mg sublingual Q5M PRN Chest 04/19/22 04/19/22 Unknown History tablet (Nitrostat) Pain zinc 50 mg tablet 50 mg PO QAM 04/19/22 04/19/22 Unknown History Allergies Allergy/AdvReac Type Severity Reaction Status Date / Time penicillin G Allergy HIVES Verified 04/18/22 22:10 Penicillins Allergy ALGY-Hives Verified 04/19/22 08:02 propoxyphene Allergy VERY SHORT Verified 04/18/22 22:10 [From Darvocet-N] OF BREATH Current Medications Generic Name Dose Route Start Last Admin Trade Name Freq PRN Reason Stop Dose Admin Aspirin 81 mg 04/19/22 09:00 04/19/22 08:14 Aspirin 81 Mg Chew Tablet PO 81 mg DAILY NELIDA Administration Carvedilol 25 mg 04/19/22 09:00 04/19/22 08:15 Carvedilol 25 Mg Tablet PO 25 mg DAILY NELIDA Administration Clopidogrel Bisulfate 75 mg 04/19/22 09:00 04/19/22 08:15 Clopidogrel 75 Mg Tablet PO 75 mg DAILY NELIDA Administration Enoxaparin Sodium 120 mg 04/19/22 07:30 04/19/22 08:14 Enoxaparin 120 Mg/0.8 Ml Syringe SUBCUT 120 mg Q12H NELIDA Administration Insulin Human Lispro 0 unit 04/19/22 08:00 04/19/22 07:53 Insulin Lispro 100 Unit/1 Ml SUBCUT Not Given [facility] Protocol Morphine Sulfate 15 mg 04/19/22 00:12 04/19/22 06:04 Morphine Ir 15 Mg Tablet PO 15 mg Q6H PRN Administration pAIN Nitroglycerin 0.4 mg 04/19/22 05:48 04/19/22 06:02 Nitroglycerin 0.4 Mg Sublingual Tablet SUBLINGUAL 1 tab Q5M PRN Administration CHEST PAIN PFSH Acute PFSH: Medical History Adult-onset obesity Anxiety CAD (coronary artery disease) Followed by Dr. Morrison, history of stenting and CABG GERD (gastroesophageal reflux disease) Hyperlipidemia Hypertension Ischemic cardiomyopathy PAD (peripheral artery disease) Systolic congestive heart failure last echo 10/2017- LVEF 40%, normal diastolic function, trace MR. Type 2 diabetes mellitus, without long-term current use of insulin Surgical History Coronary angioplasty status 04/25/15: balloon angioplasty to PDA and PLB, GOMEZ to LAD patent, SVG to OM 1 patent, SVG to PDA patent. Prox RCA 60% stenosis. History of cardiac radiofrequency ablation History of carpal tunnel release History of cholecystectomy History of femoropopliteal bypass Left common femoral artery bypass surgery performed by Dr. Carrillo on 12/15/2014 History of surgery on extremity 12/28/2014: Right groin and femoral artery exploration and primary repair of right femoral artery catheterization site History of umbilical hernia repair S/P CABG x 3 GOMEZ to LAD, SVG to OM1, SVG to PDA Family History Brother CAD (coronary artery disease) Diabetes Hyperlipidemia Hypertension Mother CAD (coronary artery disease) Cancer Diabetes Hyperlipidemia Hypertension Grandfather Cancer Father Diabetes Hyperlipidemia Hypertension Denies family history of Clotting disorder Dementia Psychiatric illness Chronic kidney disease (CKD) Suicide Anesthesia complication Bleeding disorder Family history of premature coronary artery disease Lung disease Stroke Social History Smoking and tobacco status: former smoker (10/1994) Alcohol intake: never Vitals/I&O/Wt Last Vital Signs Temp 98 F 04/19/22 04:00 Pulse 65 04/19/22 07:51 Resp 16 04/19/22 07:51 BP 133/74 04/19/22 07:51 Pulse Ox 94 04/19/22 07:51 O2 Del Method 04/19/22 07:51 Weight last 48 hrs Weight 254 lb Physical Exam Narrative: GENERAL: Patient is alert, awake and oriented x3. [] NECK: No jugular vein distension. [] HEENT: No cyanosis. No icterus. No pallor. [] HEART: Irregularly irregular LUNGS: Clear to auscultate bilaterally. [] ABDOMEN: Soft, nontender and nondistended. Positive bowel sounds. No guarding, rebound or tenderness. [] CENTRAL NERVOUS SYSTEM: Grossly nonfocal. [] EXTREMITIES: Lower extremities with 1+ edema bilaterally. Data : 04/19/22 05:09 04/19/22 05:09 A&P Assessment and plan (1) Unstable angina: Status: Acute (2) S/P CABG x 3: Status: Acute (3) Systolic congestive heart failure: Status: Acute (4) PAD (peripheral artery disease): Status: Acute (5) Hypertension: Status: Acute Qualifiers: Hypertension type: essential hypertension Qualified Code(s): I10 - Essential (primary) hypertension (6) Hyperlipidemia: Status: Acute Qualifiers: Hyperlipidemia type: other hyperlipidemia Qualified Code(s): E78.49 - Other hyperlipidemia Plan Patient has presented with worsening, unstable anginal symptoms. He has significant CAD history. We will perform coronary angiogram with possible percutaneous coronary intervention. Risks and benefit of the procedure have been discussed with the patient who understands the risks and benefits and want to proceed with the procedure. Continue current medications including aspirin and Plavix. Echocardiogram ordered. Thank you for involving us with care of this patient. We will continue to follow. Please call with questions. Consult Attestations Medical Necessity Statement: Care expected to cross 2 midnights. Coding Level of Care Code Acute Detail Drafter for Chaparro Fwd Diagnoses Unstable angina I20.0 S/P CABG x 3 Z95.1 Systolic congestive heart failure I50.20 PAD (peripheral artery disease) I73.9 Hypertension I10 Hypertension type: essential hypertension Hyperlipidemia E78.49 Hyperlipidemia type: other hyperlipidemia
--- NOTE | 2022-04-19 10:49 | XACV_ITS ---
Exam Room: [facility] Ht: 180 cm Wt: 115 kg BSA: 2.44 m2 Gender: Male : 1955 Any Known Allergies: Other Exam Priority: Routine Procedure(s): Procedure Description: Diagnostic procedure Procedure Description: PCI procedure Procedure Description: Venous Graft Catheterization Procedure Description: GOMEZ Graft Catheterization Procedure Description: Drug Eluting Coronary Stent Procedure Description: PTCA Procedure Description: Cutting Balloon Procedure Description: Coronary Angiography Diagnostic Cath Status: Urgent Diagnostic Findings * Left Main has no signficant disease. * Proximal LAD has severe 80% stenosis. Mid Left Anterior Descending: Chronic total occlusion. Prior to the occluded segment, a medium sized diagonal artery arises. 70% stenosis noted in the LAD into the diagonal artery. * Circumflex has diffuse disease. * Right Coronary Artery has moderate diffuse luminal irregularities. PDA is occluded. * Grafts: SVG to PDA: Diffusely diseased however no significant stenosis. SVG to OM: Patent GOMEZ to LAD: Patent. * Coronary angiography shows right dominance. PCI Status: Urgent PCI Indication: New Onset Angina <= 2 months Interventional Findings * Procedure detail: We engaged left main artery with XB 3.5 guide catheter. IV heparin was administered to maintain ACT above 250 S. 0.014 run-through guidewire was used to cross proximal LAD and diagonal artery stenosis. We predilated mid LAD to diagonal artery stenosis with 2.75 x 12 mm noncompliant balloon. With then predilated the proximal LAD with 2.75 x 12 mm noncompliant balloon. This was followed by dilation with 3.0 x 15 mm semicompliant balloon. However stent could not be advanced. We predilated it with a 3.0x 15 mm score flex Cutting Balloon. At this time stent could not be advanced. We placed 3. 0 x 18 mm resolute Ana drug-eluting stent. This was postdilated with a 3.25 x 6 mm NC balloon. At this time final angiogram was performed that showed excellent stent expansion, no residual stenosis and ALLIE-3 flow. Patient left the Research Physicist in a stable condition.. * Proximal Left Anterior Descendin% stenosis treated with a MDT NC EUPHORA RX [id number] BALLOON, AB TREK 3.00X15 RX BALLOON, Scoreflex, MDT R ANA 3.0X18 JONATHAN, and MDT NC EUPHORA RX [id number] BALLOON. 0% residual stenosis, ALLIE: 3 flow. * Mid Left Anterior Descendin% stenosis treated with a MDT NC EUPHORA RX 2.88K47DY BALLOON. 0% residual stenosis, ALLIE: 3 flow. Conclusions 1. Patent prior grafts. 2. SVG to RCA has diffuse disease.. 3. Severe proximal LAD and mid LAD stenosis extending into diagonal artery. Status post successful revascularization of mid LAD to diagonal with balloon angioplasty and proximal LAD with JONATHAN x1. 4. Patient has prior CABG. 5. Proximal Left Anterior Descending was treated with a Balloon, Balloon, Balloon, Drug Eluting Stent, and Balloon. 6. Mid Left Anterior Descending was treated with a Balloon. Recommendations * Dual antiplatelet therapy with aspirin and plavix. * High intensity statin therapy. * Outpatient cardiology follow up in 4 weeks. Interventional RX Recommendation: PCI w/o planned CABG Diagnostic RX Recommendation: PCI w/o planned CABG Anticoagulation: Heparin Pressures Phase:Rest AO : 91 / 58 ( 74 ) @ 12:34:00 PM Clinical Evaluation EBL: 5mL-10mL Procedural Details Procedure Consent Obtained. Pre-Procedure Time Out. Identified patient by full name and date of as verbalized by the patient/guarantor. Does the consent match the physician's order: Yes. Accurate & Complete Informed Consent: Yes. Inpatient/Outpatient History & Physical on Chart: Yes. If H&P is completed, is and addenduem needed: No; If yes, is the addendum complete: N/A. Visualize and Verify Site with Patient/Guarantor: N/A. Relevant Radiology Images available: Yes. Pre-op teaching completed and patient verbalized understanding. The risks, benefits, and alternatives of sedation and/or procedure were discussed by physician. The patient agrees to continue. Procedure started. Current Diagnosis : Chest Pain. [facility] Clinical Fraility Score: 3: Managing Well. Research Physicist Indications: ACS > 24 hours. Chest Pain Symptom Assessment: Atypical Angina. Correct patient, site and procedure confirmed by cath team. Current diagnosis: Chest Pain. PERRLA. Strong, equal hand electrician sound bilaterally. Lungs clear x 5 lobes. IV Site on Arrival: 18 gauge in the right anticubital. IV Fluids: 0.9% NaCl at KVO. 0 mL infused prior to flower shop laborer/designer. Oxygen started at 2liters/min via nasal canula. bilateral groins was prepped with chloroprep then draped in the usual sterile fashion. Physician arrived. Baseline sample Acquired. HR: 69 BPM. Pre Procedural Pulses: right dorsalis pedis was 1+. Pre Procedural Pulses: left dorsalis pedis was Doppled. Pre Procedural Pulses: bilateral posterior tibial was Doppled. Bella Thorne, RT(R) was relieved by Chari Shaw RN as monitoring person. Physician scrubbed in. Immediate Pre-Procedure Time Out. Correct Patient: Yes; Correct Procedure: Yes; Correct Site: Yes; Correct Patient Position: Yes; Correct Supplies: Yes; Dried Flammable Prep: Yes; Blood Products Available: No;. Ultrasound obtained to assist with arterial access. Lidocaine 1% infiltrated to the right groin. Arterial access obtained. A 5 scottish JR4 catheter in over wire. Multiple views taken of right coronary artery. SVG's to RCA visualized and patent. SVG's to OM visualized and patent. Catheter redirected to IDALIA. GOMEZ to LAD visualized. Catheter removed over the standard wire. A 5 scottish JL4 catheter in over wire. Multiple views taken of left coronary artery. Catheter removed over the standard wire. 6 scottish XB 3.5 guide catheter was inserted over the wire. Standard wire out. No orders for administration of anticoagulation given due to 120mg Lovenox administration on floor at 0814. Runthrough guidewire was advanced through the guide catheter to lesion in the mid LAD. Guidewire advanced across lesion in mid LAD, wire seated in diagonal branch. Balloon inserted to lesion in the mid LAD. Inflation number : 1 A MDT NC EUPHORA RX [id number] BALLOON was prepped and advanced across the Mid LAD , then inflated to 12 HARRY for 0:23 seconds. Inflation number: 2 The MDT NC EUPHORA RX 2.14D72KT BALLOON was reinflated across the Mid LAD, to 14 HARRY for 0:12 seconds. Inflation number: 3 The MDT NC EUPHORA RX 2.25E72SA BALLOON was reinflated across the Mid LAD, to 14 HARRY for 0:14 seconds. Balloon out. Angiography performed, checking results. Inflation number: 1 The MDT NC EUPHORA RX [id number] BALLOON was reinflated across the Prox LAD, to 12 HARRY for 0:21 seconds. Balloon out. Stent balloon in over wire to prox LAD. Stent balloon out over wire, stent intact. Inflation number : 2 A AB TREK 3.00X15 RX BALLOON was prepped and advanced across the Prox LAD , then inflated to 16 HARRY for 0:31 seconds. Balloon out. Stent balloon in over wire to prox LAD. Stent balloon out over wire, stent intact. Inflation number : 3 A Scoreflex cutting balloon 3.0 X15mm was prepped and advanced across the Prox LAD , then inflated to 12 HARRY for 0:32 seconds. Balloon out. Inflation Number : 4 A MDT R ANA 3.0X18 JONATHAN -Lot Number#[id number] was prepped and advanced across the Prox LAD. The stent was deployed at 12 HARRY for 0:27 seconds. EXP 12-17-2024. Stent balloon out over wire. Balloon inserted to lesion in the prox LAD. Inflation number : 5 A MDT NC EUPHORA RX [id number] BALLOON was prepped and advanced across the Prox LAD , then inflated to 12 HARRY for 0:16 seconds. Inflation number: 6 The MDT NC EUPHORA RX [id number] BALLOON was reinflated across the Prox LAD, to 14 HARRY for 0:13 seconds. Balloon out. Angiography performed, checking results. Runthrough wire out. Guide catheter out. A Right femoral angiogram was performed to determine safe placement of closure device. A Suture was successful obtaining hemostatsis at the Right Femoral artery insertion site. Sheath(s) sutured into position with 2-0 silk and sterile 4x4's and Op-site applied over the site. No oozing or signs and symptoms of hematoma noted. Arterial sheath flushed and connected to tranducer and pressure bag with heparinized saline. Post Procedure: Pulses reassessed and unchanged. PERRLA. Strong, equal hand electrician sound bilaterally. No VTE prophylaxis required. Total IV fluids: 64 mL. Post-op diagnosis: Severe mid LAD stenosis, Severe proximal LAD stenosis, Patent bypass grafts. Medication's Wasted: Lidocaine 1% = 1 mL. Medication's Wasted: Heparin = 4000 unit. Medication's Wasted: Other = Versed 1 mg. Medication's Wasted: Other = Fentanyl 25mcg. Complications: None. Estimated blood loss: 5mL-10mL. Responsiveness - Normal response to verbal stimuli; alert and oriented, PERRLA. Airway - Unaffected, no intervention required; spontaneous ventilation. Circulation: W/N/L, pulses unchanged. Nausea/Vomiting: N/A. Procedure completed. Patient transferred by bed to ICU. Vital chart was stopped. Access Site Site: Right Femoral artery Sheath Size: 6 Fr Hemostasis Method: Suture Hemostasis Success: Successful Procedure Medications Start: 11:03 AM Stop: 11:03 AM Medication: Versed Amount: 1 mg Route: I.V. Start: 11:03 AM Stop: 11:03 AM Medication: Fentanyl Amount: 50 mcg Route: I.V. Start: 11:20 AM Stop: 11:20 AM Medication: Versed Amount: 1 mg Route: I.V. Start: 11:54 AM Stop: 11:54 AM Medication: Versed Amount: 1 mg Route: I.V. Start: 12:00 PM Stop: 12:00 PM Medication: Fentanyl Amount: 25 mcg Route: I.V. I, the attending physician, have reviewed and verified all procedure medications. Yes, all medications given per verbal order History/Risk Factors Hypertension: Yes Dyslipidemia: Yes Peripheral Arterial Disease (PAD): Yes Obesity: No Renal Disease: No Prior Interventions PCI: Yes CABG: Yes Valve Surgery: No Report Signatures Finalized by Patrick Moody MD on 04/26/2022 09:34 AM
--- NOTE | 2022-04-19 11:02 | W.PM.OPSUD ---
Surgery/Procedure H&P Update DATE OF PROCEDURE: April 19, 2022 DATE H&P PERFORMED: 04/19/22 H&P UPDATE INFORMATION: I have reviewed H&P completed within last 30 days, I have examined patient prior to procedure and No changes to prior documentation PREOP DIAGNOSIS: Worsening angina PRIMARY INDICATION FOR PROCEDURE: Worsening angina PLANNED PROCEDURE: Left heart cath with possible percutaneous coronary intervention PATIENT REASSESSED PRIOR TO SEDATION, WITH NO CHANGE NOTED: Yes PHYSICAL EXAM: alert, oriented x 3, clear to auscultation bilaterally and regular rate & rhythm AIRWAY EVAL/ANESTHESIA PLAN: ASA III, Local Anesthesia, Risks, benefits & alternatives of sedation and/or procedure discussed and Patient agrees to continue as planned ADDITIONAL INFORMATION: Moderate sedation
--- NOTE | 2022-04-19 12:52 | P.PN_ITS ---
Subjective Subjective: 66 yo WM with 5 stents in 2004 says had 4 vessel CABG in 2006. Overnight was having pain and seen by Dr. Moody. Underwent PTCA LAD 3 areas and 1 stent today proximal LAD Now transferred to ICU and no chest pain now. Pt says no alcohol. quit tobacco 1984 Vitals/I&O/Wt Last Vital Signs Temp 98 F 04/19/22 04:00 Pulse 65 04/19/22 07:51 Resp 16 04/19/22 07:51 BP 133/74 04/19/22 07:51 Pulse Ox 94 04/19/22 07:51 O2 Del Method 04/19/22 07:51 Weight last 48 hrs Weight 115.212 kg Physical Exam Narrative: General well-developed well-nourished male in no acute cardiopulmonary CV irregular but rate is controlled no loud murmurs Lungs clear to auscultation Abdomen positive bowel sounds soft nontender Calves no tenderness cords pedal edema Mood and affect appropriate Data : 04/19/22 05:09 04/19/22 05:09 A&P Assessment and plan (1) Unstable angina: Due to LAD due to LAD stenosis now post intervention improved Status: Acute (2) Atherosclerosis of coronary artery of [place] heart without angina pectoris: Patient has both coronary artery disease as well as stents and CABG previous Status: Acute (3) S/P CABG x 3: LAD stent today Status: Acute (4) Systolic congestive heart failure: Preserved LVEF likely to improve post stent and currently not in heart failure Status: Acute (5) PAD (peripheral artery disease): Stable Status: Acute Attestations Medical Necessity Statement*: Patient will be monitored post PTCA and stent in the ICU. Anticipate discharge in 1 to 2 days Time Spent in Patient Care: 35 minutes spent in evaluation coronation care for this patient today Coding Level of Care Code Acute Granulating Machine Operator for [facility]arro [place] History Detailed Exam Detailed Medical Decision Making Moderate Complexity Diagnoses Unstable angina I20.0 Atherosclerosis of coronary artery of [place] heart without angina pectoris I25.10 S/P CABG x 3 Z95.1 Systolic congestive heart failure I50.20 PAD (peripheral artery disease) I73.9
[2022-04-19] MEDS: acetaminophen 325 mg Tablet 650 MG PO (14:30)
[2022-04-19 16:15] LABS: Partial Thromboplastin Time 28.9 SECONDS (23.9-36.7)
[2022-04-19] MEDS: fentaNYL 50 mcg/mL INJ 2mL IVP (16:32)
--- NOTE | 2022-04-19 17:27 | PC.NURSE ---
Sheath pulled by this nurse at 1655, pressure held x 20min, no complications, no hematoma formation, no blood loss. Dressing applied.
[2022-04-19 17:33] LABS: Glucose Point of Care 111 mg/dL (70-110)
[2022-04-19] MEDS: carvedilol 12.5 mg Tablet PO (18:17)
--- NOTE | 2022-04-19 19:00 | PC.NURSE ---
Pt. laying in bed, comfortable, no complaints or needs expressed at this time. Pt. has right groin cath site with gauze and tagaderm over site. Site is soft and free of blood or bruising at this time.
--- NOTE | 2022-04-19 21:30 | PC.NURSE ---
Bedrest is up for patient post cath. Right groin cath site is soft, clean, and clear. Pt. is assisted to chair. Tolerated well. No needs identified at this time
[2022-04-19 21:36] LABS: Glucose Point of Care 143 mg/dL (70-110)
--- NOTE | 2022-04-19 21:55 | PC.NURSE ---
Pt. assisted to bed. no needs identified at this time.
[2022-04-20] VITALS (119 sets, daily range): BP systolic 108–151; BP diastolic 56–93; PULSE 64–106; RESP 9–35; TEMP 36.5–37.1; O2SAT 80–96
[2022-04-20] MEDS: aspirin 81 mg Chew Tablet PO (08:21)
[2022-04-20] MEDS: clopidogrel 75 mg Tablet PO (08:22)
[2022-04-20] MEDS: morphine IR 15 mg Tablet PO (08:22)
[2022-04-20] MEDS: carvedilol 25 mg Tablet PO (08:22)
[2022-04-20] MEDS: cyanocobalamin 1,000 mcg Tablet 1000 MCG PO (08:22)
--- NOTE | 2022-04-20 09:36 | PM.PN ---
Subjective Subjective: Patient is doing well. Denies chest pain. Vitals/I&O/Wt Last Vital Signs Temp 98.8 F 04/20/22 08:25 Pulse 80 04/20/22 08:25 Resp 20 H 04/20/22 08:25 BP 144/82 04/20/22 08:25 Pulse Ox 90 04/20/22 08:25 O2 Del Method 04/20/22 08:25 04/19/22 04/20/22 04/20/22 22:59 06:59 14:59 Intake Total 240 / 240 Output Total 1100 / 1100 650 / 1750 Balance -860 / -860 -650 / -1510 Weight last 48 hrs Weight 254 lb Physical Exam Narrative: GENERAL: Patient is alert, awake and oriented x3. [] NECK: No jugular vein distension. [] HEENT: No cyanosis. No icterus. No pallor. [] HEART: Irregularly irregular LUNGS: Clear to auscultate bilaterally. [] ABDOMEN: Soft, nontender and nondistended. Positive bowel sounds. No guarding, rebound or tenderness. [] CENTRAL NERVOUS SYSTEM: Grossly nonfocal. [] EXTREMITIES: Lower extremities with 1+ edema bilaterally. Data : 04/20/22 10:31 04/20/22 10:31 A&P Assessment and plan (1) Unstable angina: Status: Acute (2) S/P CABG x 3: Status: Acute (3) Systolic congestive heart failure: Status: Acute (4) PAD (peripheral artery disease): Status: Acute (5) Hypertension: Status: Acute Qualifiers: Hypertension type: essential hypertension Qualified Code(s): I10 - Essential (primary) hypertension (6) Hyperlipidemia: Status: Acute Qualifiers: Hyperlipidemia type: other hyperlipidemia Qualified Code(s): E78.49 - Other hyperlipidemia Plan Patient underwent a coronary angiogram. His coronary artery bypass grafts are patent. SVG to PDA is diffusely diseased however is patent. GOMEZ to LAD and SVG to OM were patent as well. He is proximal LAD has severe stenosis. Prior to total occlusion in the mid LAD, LAD into diagonal has severe stenosis. It underwent balloon angioplasty. Proximal LAD was treated with PCI with JONATHAN x1. Dual antiplatelet therapy with aspirin and Plavix. Patient will need long-term anticoagulation because of atrial fibrillation. High intensity statin therapy Outpatient cardiology follow-up. Thank you for involving us with care of this patient. Please call with questions. Attestations Medical Necessity Statement*: Care expected to cross 2 midnights. 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
[2022-04-20 10:52] LABS: Basophils # 0.1 10^3/uL (0.0-0.1); Basophils % 0.9 %; Eosinophils # 0.3 10^3/uL (0.0-0.8); Eosinophils % 3.2 %; Hematocrit 43.9 % (42.0-52.0); Hemoglobin 13.7 g/dL (11.7-16.6); Lymphocytes % 11.4 %; Mean Corpuscular HGB Conc 31.2 g/dL (30.0-36.0); Mean Corpuscular Volume 89.6 fl (80-94); Mean Platelet Volume 9.6 fL (7.4-10.4); Monocytes # 0.6 10^3/uL (0.2-0.9); Monocytes % 6.6 %; Neutrophils # 6.69 10^3/uL (1.8-7.7); Neutrophils % 77.6 %; Nucleated Red Blood Cells % 0 %; Platelet Count 261 10^3/cmm (130-400); Red Cell Distribution Width 13.5 % (12.1-15.1); White Blood Count 8.6 10^3/uL (4.0-10.0)
--- NOTE | 2022-04-20 10:58 | PC.CHAP ---
Pastoral Care Encounter/Spiritual Assessment Type of Contact [] Declined marine reporter visit [] Patient/Family/Request visit [] Outpatient visit [] Follow-up visit [] Physician referral [] Code/Alert [x] Routine visit [] Staff referral [] Actively dying [] Patient sleeping [] Family support [] [] Out of room [] Palliative care [] [] Receiving care in room [] Pre-surgical visit [] Trauma [] Long length of stay [x] ICU visit [] Other: Relational/Emotional Strength [] Patient feels connected with others/family/visitors/staff [] Distress [] Loneliness/isolation [] Abandonment Spirituality of Patient [] Person of Herminia [] Attends Evangelical of their Herminia [] Believes in Prayer [] Reads Bible or Tenriism materials [] There are Spiritual issues to be addressed Offline Cutter Interventions [x] Prayer [] Active listening [] Non-anxious presence [] Spiritual/emotional support [] Crisis/trauma care [] Spiritual counseling [] Bereavement support [] Provided bereavement packet [] Provided Bible/devotional materials [] Provided toy/stuffed animal, coloring book to patient or family member [] Provided Communion [] Anointing/Ramer [] Salvation [x] Completed spiritual assessment [] Other: Impact on Illness or Injury [] Angry [] Fearful [] Anxious [] Often cries [] Exhaustion [] Unable to work [] Unable to attend mandaeism [] Unable to walk/stand [] Unable to read [] Unable to drive [] Unable to eat/drink [] Unable to sleep [] Unable to be with family [] Patient intubated [] Other: Summary patient setting up in chair... day after stint placed... still feeling weak.. but better Time spent with patient
[2022-04-20 11:28] LABS: Troponin T (5th) Once 34 ng/L (0-15)
[2022-04-20 11:33] LABS: Anion Gap 18.6 (5-19); Blood Urea Nitrogen 14 mg/dL (8-23); Calcium 9.2 mg/dL (8.5-10.5); Carbon Dioxide 26 mmol/L (22-29); Chloride 96 mmol/L (98-107); Glomerular Filtration Rate 84.4 mL/min (90-130); Glucose 235 mg/dL (65-115); Osmolality Calculated 290 mOsm/kg (285-295); Potassium 4.6 mmol/L (3.5-5.1); Sodium 136 mmol/L (136-145)
[2022-04-20 11:57] LABS: Glucose Point of Care 188 mg/dL (70-110)
[2022-04-20] MEDS: insulin lispro 100 unit/1 mL SUBCUT (12:27)
--- NOTE | 2022-04-20 12:33 | PM.DCS ---
Discharge Providers Date of Admission: 04/19/22 14:42 Date of Discharge: April 20, 2022 Attending Provider at Admission: Tara Steele MD Attending Provider at Discharge: Benjie Russo MD Consults: Pino Moody MD cardiology Primary Care Provider: Teodoro Jon DO Diagnoses at Discharge Discharge Diagnosis (1) Unstable angina: Details from hospital stay: Patient found to have LAD stenosis and had PTCA in 3 locations and proximal LAD drug-eluting stent placed 04/19/2022. Patient had mild troponin elevation only and that has stabilized renal function good post angiogram. Patient has had no further chest pain and is ready for discharge Status: Acute (2) Atherosclerosis of coronary artery of [place] heart without angina pectoris: Details from hospital stay: See coronary anatomy detailed by Dr. Moody's angiography Status: Acute (3) S/P CABG x 3: Details from hospital stay: Remote history Status: Acute Permanent problem details: GOMEZ to LAD, SVG to OM1, SVG to PDA (4) Systolic congestive heart failure: Details from hospital stay: Mild well compensated Status: Acute Permanent problem details: last echo 10/2017- LVEF 40%, normal diastolic function, trace MR. (5) PAD (peripheral artery disease): Details from hospital stay: Unchanged Status: Acute (6) Atrial fibrillation with controlled ventricular rate: Details from hospital stay: Patient states he is following with electrophysiology cardiology and they are attempting to get him Eliquis and after that we will put him on amiodarone to try and convert his rhythm. Currently his heart rate is controlled. We do not want to fully anticoagulate him at this time due to recent angiogram via the right groin Status: Acute Reason for Visit Reason for Visit: cp Brief History: Patient with exertional chest pain relieved by nitroglycerin Hospital Course Hospital Course Patient had ongoing chest pain for initial evening of admission and underwent PTCA x3 with stent to the proximal LAD on 04/19/2022. Patient did well postoperatively and has been able to move in the room without chest pain or cardiovascular instability Patient has known atrial fibrillation initially ablated years ago but returned. He is seeing EP cardiology in [place] about anticoagulation and initiation of amiodarone. 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 Continue Plavix and aspirin. Medications were reviewed. Metformin to be held for 2 days Physical Exam Narrative: General well-developed well-nourished male in no acute cardiopulmonary distress CV regular rate and rhythm lungs clear to auscultation bilaterally abdomen soft nontender Right groin with bandage in place no fluctuance or hematoma Discharge Data Studies Completed and Pending Completed Studies During Hospitalization Category Date Time Status XR chest 1V portable [id number] Stat Exams 04/18/22 22:01 Completed CV. 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 Laboratory Results WBC 8.6 10^3/uL (4.0-10.0) 04/20/22 10:31 RBC 4.90 10^6/uL (4.1-5.3) 04/20/22 10:31 Hgb 13.7 g/dL (11.7-16.6) 04/20/22 10:31 Hct 43.9 % (42.0-52.0) 04/20/22 10:31 MCV 89.6 fl (80-94) 04/20/22 10:31 MCH 28.0 pg (28.0-34.0) 04/20/22 10:31 MCHC 31.2 g/dL (30.0-36.0) 04/20/22 10:31 RDW 13.5 % (12.1-15.1) 04/20/22 10:31 Plt Count 261 10^3/cmm (130-400) 04/20/22 10:31 MPV 9.6 fL (7.4-10.4) 04/20/22 10:31 Neut % (Auto) 77.6 % 04/20/22 10:31 Lymph % (Auto) 11.4 % 04/20/22 10:31 [place] % (Auto) 6.6 % 04/20/22 10:31 Eos % (Auto) 3.2 % 04/20/22 10:31 Baso % (Auto) 0.9 % 04/20/22 10:31 Neut # (Auto) 6.69 10^3/uL (1.8-7.7) 04/20/22 10:31 Lymph # (Auto) 1.0 10^3/uL (0.8-4.8) 04/20/22 10:31 [place] # (Auto) 0.6 10^3/uL (0.2-0.9) 04/20/22 10:31 Eos # (Auto) 0.3 10^3/uL (0.0-0.8) 04/20/22 10:31 Baso # (Auto) 0.1 10^3/uL (0.0-0.1) 04/20/22 10:31 Nucleated RBC % (auto) 0 % 04/20/22 10:31 Nucleated RBCs # 0.0 /100WBC 04/20/22 10:31 APTT 28.9 SECONDS (23.9-36.7) 04/19/22 15:44 D-Dimer 0.88 ug/mIFEU (0-0.59) H 04/18/22 22:21 Sodium 136 mmol/L (136-145) 04/20/22 10:31 Potassium 4.6 mmol/L (3.5-5.1) 04/20/22 10:31 Chloride 96 mmol/L (98-107) L 04/20/22 10:31 Carbon Dioxide 26 mmol/L (22-29) 04/20/22 10:31 Anion Gap 18.6 (5-19) 04/20/22 10:31 BUN 14 mg/dL (8-23) 04/20/22 10:31 Creatinine 0.9 mg/dL (0.7-1.2) 04/20/22 10:31 GFR Calculation 84.4 mL/min (90-130) L 04/20/22 10:31 Glucose 235 mg/dL (65-115) H 04/20/22 10:31 POC Glucose 188 mg/dL (70-110) H 04/20/22 11:45 Calculated Osmolality 290 mOsm/kg (285-295) 04/20/22 10:31 Calcium 9.2 mg/dL (8.5-10.5) 04/20/22 10:31 Magnesium 1.9 mg/dL (1.7-2.3) 04/19/22 05:09 Total Bilirubin 0.3 mg/dL (0.15-1.2) 04/18/22 22:21 AST 15 U/L (0-40) 04/18/22 22:21 ALT 15 U/L (0-41) 04/18/22 22:21 Alkaline Phosphatase 98 U/L (40-130) 04/18/22 22:21 Troponin T Gen 5 ng/L 34 ng/L (0-15) H 04/20/22 10:31 Troponin T Baseline 31 ng/L (0-15) H 04/18/22 22:21 Troponin T 120 Minute 29.12 ng/L (0-15) H 04/18/22 23:51 Delta Troponin T -1.88 ABS# (0-10) L 04/18/22 23:51 Troponin T Hi Sens 6Hr 33.98 ng/L (0-15) H 04/19/22 05:09 Troponin T Hi Sens 6Hr Delta 2.98 ng/L (0-12) 04/19/22 05:09 C-Reactive Protein 4.5 mg/L (0.0-4.9) 04/19/22 05:09 Total Protein 6.7 g/dL (6.6-8.7) 04/18/22 22:21 Albumin 4.3 g/dL (3.5-5.2) 04/18/22 22:21 Globulin 2.4 g/dL (1.3-4.6) 04/18/22 22:21 TSH 2.30 uIU/mL (0.27-4.20) 04/18/22 23:51 Urine Opiates Screen Positive ng/mL (Negative) H 04/19/22 07:30 Ur Barbiturates Screen Negative ng/mL (Negative) 04/19/22 07:30 Ur Phencyclidine Scrn Negative ng/mL (Negative) 04/19/22 07:30 Ur Amphetamines Screen Negative ng/mL (Negative) 04/19/22 07:30 U Benzodiazepines Scrn Negative ng/mL (Negative) 04/19/22 07:30 Urine Cocaine Screen Negative ng/mL (Negative) 04/19/22 07:30 U Marijuana (THC) Screen Negative ng/mL (Negative) 04/19/22 07:30 Vitals Last Vital Signs Temp 98.8 F 04/20/22 08:25 Pulse 77 04/20/22 10:00 Resp 20 H 04/20/22 10:00 BP 116/79 04/20/22 10:00 Pulse Ox 93 04/20/22 10:00 O2 Del Method 04/20/22 10:00 Discharge Plan Discharge Patient Disposition: Home Condition: Stable Prescriptions: Continued clopidogrel 75 mg tablet 75 mg PO QAM furosemide 20 mg tablet 20 mg PO QAM spironolactone 25 mg tablet 12.5 mg PO QAM carvedilol 25 mg tablet See Rx Instructions .ROUTE .COMPLEX Rx Instructions: 25mg in the am and 12.5mg po pm omeprazole 20 mg capsule,delayed release(DR/EC) 20 mg PO BID tramadol 50 mg tablet 100 mg PO TID PRN (Reason: Pain) acetaminophen [Tylenol Extra Strength] 500 mg tablet 1,000 mg PO TID PRN (Reason: Pain) Rx Instructions: takes with tramadol aspirin 81 mg tablet,chewable 81 mg PO BEDTIME cholecalciferol (vitamin D3) 2,000 unit tablet 2,000 unit PO QAM potassium chloride 20 mEq tablet extended release 20 meq PO QAM enalapril maleate 5 mg tablet 5 mg PO BID simvastatin 20 mg tablet 20 mg PO BEDTIME glyburide 1.25 mg tablet 1.25 mg PO QAM escitalopram oxalate 10 mg tablet 10 mg PO QAM sildenafil 25 mg tablet 25 mg PO PRN Qty: 30 3RF Rx Instructions: take 30min prior to sexual activity, limit of one tab per 36hour peroid Centrum Silver Men 300-600-300 mcg Tablet 1 tab PO QAM zinc 50 mg Tablet 50 mg PO QAM Vitamin C 1,000 mg Tablet 1,000 mg PO QAM Vitamin B-12 1,000 mcg Tablet 1,000 mcg PO QAM Nitrostat 0.4 mg Tablet, Sublingual 0.4 mg SUBLINGUAL Q5M PRN (Reason: Chest Pain) Rx Instructions: do not exceed 3 doses per episode Held metformin 500 mg tablet extended release 24 hr 1,000 mg PO BID Hold Instructions: Resume on 04/22/22. Discharge Orders: Discharge Order (Routine); Ordered 04/20/22 Ordered By: Benjie Russo Referrals: Teodoro Jon DO [Primary Care Provider] - Discharge Diet: Cardiac and Diabetic Discharge Activity: Increase activity as tolerated Patient Instructions: Coronary Angioplasty (DC), Opioid Safety Discharge Attestations Time Spent in Discharge Care*: greater than 30 min Time Spent in Smoking Cessation: Non-smoker Quality Metrics Clinical Quality Measures [ Acute Myocardial Infaction { Clinical Trial Participant: No; Contraindication to aspirin: None; Aspirin prescribed; Contraindication to statin: None; Statin prescribed;}] Coding Level of Care Code Acute Chg FW DC note History Expanded Problem Focused Exam Expanded Problem Focused Medical Decision Making Moderate Complexity Diagnoses Unstable angina I20.0 Atherosclerosis of coronary artery of [place] heart without angina pectoris I25.10 S/P CABG x 3 Z95.1 Systolic congestive heart failure I50.20 PAD (peripheral artery disease) I73.9 Atrial fibrillation with controlled ventricular rate I48.91
--- NOTE | 2022-04-20 14:14 | PC.NURSE ---
PT HAS HAD AN UNEVENTFUL SHIFT. PLANS FOR PT TO DISCHARGE TODAY. DISCHARGE PAPERWORK GONE OVER WITH PT. ALL QUESTIONS ANSWERED. IV REMOVED. CATHETER TIP INTACT. PT TOLERATED WELL. JUST WAITING FOR RIDE TO GET HERE. WILL CONTINUE TO MONITOR.
--- NOTE | 2022-04-20 15:59 | PC.NURSE ---
PT SAFELY WHEELED OUT BY THIS NURSE.
== END 2022-04-20 16:00 | disposition home or self-care (01) | DRG 247 ==
LOC: ER 23:15 → MEDSURG 04-19 00:01 → ICU 04-19 12:20
PROVIDERS: Internal Medicine; Admitting Provider Internal Medicine; Emergency Provider Emergency Medicine; PCP Family Medicine; Visit Provider Internal Medicine
PROC: 027034Z Dilation of Coronary Artery, One Artery with Drug-eluting Intraluminal Device, Percutaneous Approach (ICD-10-PCS; principal; 2022-04-19 11:00)
PROC: 027034Z Dilation of Coronary Artery, One Artery with Drug-eluting Intraluminal Device, Percutaneous Approach (ICD-10-PCS; 2022-04-19 11:00)
DX: I25.110 Atherosclerotic heart disease of native coronary artery with unstable angina pectoris (principal); I50.22 Chronic systolic (congestive) heart failure; N17.9 Acute kidney failure, unspecified; I11.0 Hypertensive heart disease with heart failure; I48.91 Unspecified atrial fibrillation; F41.9 Anxiety disorder, unspecified; K21.9 Gastro-esophageal reflux disease without esophagitis; E78.49 Other hyperlipidemia; E11.51 Type 2 diabetes mellitus with diabetic peripheral angiopathy without gangrene; E86.0 Dehydration; Z79.84 Long term (current) use of oral hypoglycemic drugs; Z82.49 Family history of ischemic heart disease and other diseases of the circulatory system; Z87.891 Personal history of nicotine dependence; Z95.1 Presence of aortocoronary bypass graft; Z79.82 Long term (current) use of aspirin; Z79.02 Long term (current) use of antithrombotics/antiplatelets
CPT/HCPCS: 36415; 36416; 71045; 80048; 80053; 80306; 82962; 83735; 84443; 84484; 85025; 85378; 85730; 86140; 93005; 93306; 93455; 96360; 96372; 96374; 96375; 99152; 99153; 99285; C1725; C1769; C1874; C1887; C1894; C9600; G0378; J1170; J1644; J1650; J1815; J2250; J2405; J3010; J7030; Q9967

== ENCOUNTER 2022-04-25 17:11 | Inpatient (IN) | payer MEDICARE, SELFPAY ==
[2022-04-25] VITALS (10 sets, daily range): BP systolic 151–164; BP diastolic 75–99; PULSE 65–77; RESP 12–18; TEMP 36.7; O2SAT 93–98; BMI 35.1
--- NOTE | 2022-04-25 17:32 | ECG_ITS ---
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1955 Requested By: Whitney Lea Order Number: [id number] [place] MD: Measurements Intervals [place] Rate: 75 P: [place]: QRS: 38 QRSD: 86 T: -2 QT: 382 QTc: 429 Interpretive Statements ATRIAL FIBRILLATION WITH ABERRANT CONDUCTION OR VENTRICULAR PREMATURE COMPLEXES POSSIBLE ANTERIOR MYOCARDIAL INFARCTION , PROBABLY OLD [30 ms Q WAVE IN V3/V4, OR R < 0.2 mV IN V4] ABNORMAL RHYTHM ECG INTERPRETATION BASED ON A DEFAULT AGE OF 40 YEARS No previous ECG available for comparison [id number] f
--- NOTE | 2022-04-25 17:32 | XR_ITS ---
WS: [id number] XR chest 1V portable [id number] REASON FOR EXAM: chest pain FINDINGS: The chest appears unchanged compared to 04/18/2022. Previous aortocoronary artery bypass surgery. Cardiomegaly. Calcified granulomatous disease in both hemithoraces. No acute pulmonary parenchymal or pleural abnormality. Moderate degenerative spondylosis in the mid and lower thoracic spine. XR/XR chest 1V portable [id number] IMPRESSION: Previous coronary artery bypass surgery and cardiomegaly. No acute abnormality identified.
--- NOTE | 2022-04-25 17:44 | W.ED.GENADLT ---
HPI - General Adult General: Chief complaint: ER Hold Stated complaint: chest pain Time Seen by Provider: 04/25/22 17:32 History of Present Illness: Patient is a 66-year-old male with history of CABG, stent x6 (with recent placement JONATHAN to the LAD) presenting to emergency room for evaluation of acute onset of chest pain subce 12pm. Patient reports chest heaviness with lightheadedness and shortness of breath since then. Patient reports the pain feels very similar to the previous hospital and heart attack. Patient denies any fever/chills, cough, runny nose sore throat, abdominal complaints, nausea/vomiting, diarrhea melena/hematochezia. He denies any pain with radiation to the back or any pleuritic chest pain. Denies any unilateral lower extremity swelling or history of VTE's. Patient took aspirin and 1 dose of nitro with mild relief of pain. Patient reports pain currently 7 out of 10. Onset:12pm Duration:ongoing Location:home Severity:moderate Associated symptoms: Reports chest pain and dyspnea; Deny nausea, rash, palpitations or vomiting Review of Systems Const: Denies: fever(s) or chills Eyes: Denies: change in vision ENMT: Denies: mouth pain Card: Reports: chest pain and dyspnea on exertion; Denies: palpitations Resp: Reports: dyspnea; Denies: non-productive cough GI: Denies: abdominal pain, nausea, vomiting or diarrhea : Denies: dysuria Musc: Denies: extremity pain Skin/Breast: Denies: rash or new lesions Neuro: Denies: weakness in extremities Psych: Reports: other (Normal mood) Marcus/Lymph: Denies: easy bruising [facility] ED PFSH: Medical History (Updated 04/28/22 @ 00:02 by ) Adult-onset obesity Anxiety Atrial fibrillation with controlled ventricular rate CAD (coronary artery disease) Followed by Dr. Morrison, history of stenting and CABG GERD (gastroesophageal reflux disease) Hyperlipidemia Hypertension Ischemic cardiomyopathy PAD (peripheral artery disease) Systolic congestive heart failure last echo 10/2017- LVEF 40%, normal diastolic function, trace MR. Type 2 diabetes mellitus, without long-term current use of insulin Surgical History Coronary angioplasty status 04/25/15: balloon angioplasty to PDA and PLB, GOMEZ to LAD patent, SVG to OM 1 patent, SVG to PDA patent. Prox RCA 60% stenosis. History of cardiac radiofrequency ablation History of carpal tunnel release History of cholecystectomy History of femoropopliteal bypass Left common femoral artery bypass surgery performed by Dr. Carrillo on 12/15/2014 History of surgery on extremity 12/28/2014: Right groin and femoral artery exploration and primary repair of right femoral artery catheterization site History of umbilical hernia repair S/P CABG x 3 OGMEZ to LAD, SVG to OM1, SVG to PDA Family History Brother CAD (coronary artery disease) Diabetes Hyperlipidemia Hypertension Mother CAD (coronary artery disease) Cancer Diabetes Hyperlipidemia Hypertension Grandfather Cancer Father Diabetes Hyperlipidemia Hypertension Denies family history of Clotting disorder Dementia Psychiatric illness Chronic kidney disease (CKD) Suicide Anesthesia complication Bleeding disorder Family history of premature coronary artery disease Lung disease Stroke Social History Smoking and tobacco status: former smoker (10/1994) Alcohol intake: never Physical Exam Const: COMMON NORMALS: alert HENMT: COMMON NORMALS: atraumatic HEAD & SCALP: atraumatic MOUTH: moist mucous membranes not abnormal Eye: COMMON NORMALS: EOMs intact bilaterally and conjunctivae normal CONJUNCTIVA: Yes conjunctivae normal Neck/C-Spine: COMMON NORMALS: full ROM and supple Resp: COMMON NORMALS: normal respiratory effort and clear to auscultation bilaterally AUSCULTATION: clear to auscultation bilaterally Cardio: COMMON NORMALS: regular rate RATE: regular rate OTHER: 2+ radial pulses b/l GI: COMMON NORMALS: Soft to palpation and non-tender PALPATION: Yes Soft to palpation OTHER: No focal TTP. NO guarding rebound, guarding, rigidity. No CVA tenderness to percussion. Neg Castillo/Neg McBurney's point tenderness, no suprabupic tenderness to palpation. Extremity: COMMON NORMALS: full ROM OTHER: No LE swelling Neuro: SENSORIUM/ORIENTATION: Yes alert MOTOR EXAM: No Abnormal motor strength present and Other motor observations present (no focal motor deficits) Psych: COMMON NORMALS: speech normal SPEECH: Yes normal speech MOOD & AFFECT: Yes euthymic mood Course Vital Signs: Vital signs: Vital Signs Temperature 98.0 F 04/27/22 11:07 Pulse Rate 69 04/27/22 11:07 Respiratory Rate 16 04/27/22 11:07 Blood Pressure 111/71 04/27/22 11:07 Pulse Oximetry 97 04/27/22 11:07 Oxygen Delivery Me thod 04/27/22 07:17 Oxygen Flow Rate 2 04/27/22 07:17 MDM - General Adult Medical Decision Making [66]yo patient w/ hx of CABG, stents x 6 (recent stent to LAD) presenting to the ED with evaluation of new onset of chest pain since 12pm. HDS, pulse 2+ radially bilaterally, no signs of fluid overload, AAOx3, neuro exam intact. Workup: ECG, CXR, CBC, BMP, Troponin Interventions: Morphine Findings: ECG: No overt evidence of STEMI, hyperacute T waves, localizable STD or T wave inversions. No evidence of Brugada?s sign, delta wave, epsilon wave, significantly prolonged QTc, or malignant arrhythmia. No Q waves. Other Labs unremarkable for emergent problems. CXR: Without PTX, PNA, or widened mediastinum Last Heart Catheterization: last week He will be admitted to hospital for chest pain. Patient received 2 doses of morphine with improvement chest pain continues to report 3 out of 10 chest pain. Initial troponin of 21. We will trend. Disposition: admission Lab Data : 04/27/22 02:51 04/27/22 02:51 Radiology Impressions Chest X-Ray 04/25/22 17:32 IMPRESSION: Previous coronary artery bypass surgery and cardiomegaly. No acute abnormality identified. Laboratory Results WBC 9.3 10^3/uL (4.0-10.0) 04/26/22 05:38 RBC 4.64 10^6/uL (4.1-5.3) 04/26/22 05:38 Hgb 12.8 g/dL (11.7-16.6) 04/26/22 05:38 Hct 41.9 % (42.0-52.0) L 04/26/22 05:38 MCV 90.3 fl (80-94) 04/26/22 05:38 MCH 27.6 pg (28.0-34.0) L 04/26/22 05:38 MCHC 30.5 g/dL (30.0-36.0) 04/26/22 05:38 RDW 13.3 % (12.1-15.1) 04/26/22 05:38 Plt Count 265 10^3/cmm (130-400) 04/26/22 05:38 MPV 9.5 fL (7.4-10.4) 04/26/22 05:38 Neut % (Auto) 58.6 % 04/26/22 05:38 Lymph % (Auto) 24.7 % 04/26/22 05:38 [place] % (Auto) 10.6 % 04/26/22 05:38 Eos % (Auto) 4.4 % 04/26/22 05:38 Baso % (Auto) 1.2 % 04/26/22 05:38 Neut # (Auto) 5.46 10^3/uL (1.8-7.7) 04/26/22 05:38 Lymph # (Auto) 2.3 10^3/uL (0.8-4.8) 04/26/22 05:38 [place] # (Auto) 1.0 10^3/uL (0.2-0.9) H 04/26/22 05:38 Eos # (Auto) 0.4 10^3/uL (0.0-0.8) 04/26/22 05:38 Baso # (Auto) 0.1 10^3/uL (0.0-0.1) 04/26/22 05:38 Nucleated RBC % (auto) 0 % 04/26/22 05:38 Nucleated RBCs # 0.0 /100WBC 04/26/22 05:38 Sodium 134 mmol/L (136-145) L 04/26/22 05:38 Potassium 4.5 mmol/L (3.5-5.1) 04/26/22 05:38 Chloride 99 mmol/L (98-107) 04/26/22 05:38 Carbon Dioxide 25 mmol/L (22-29) 04/26/22 05:38 Anion Gap 14.5 (5-19) 04/26/22 05:38 BUN 16 mg/dL (8-23) 04/26/22 05:38 Creatinine 0.9 mg/dL (0.7-1.2) 04/26/22 05:38 GFR Calculation 84.4 mL/min (90-130) L 04/26/22 05:38 Glucose 139 mg/dL (65-115) H 04/26/22 05:38 POC Glucose 162 mg/dL (70-110) H 04/26/22 19:46 Calculated Osmolality 281 mOsm/kg (285-295) L 04/26/22 05:38 Calcium 9.0 mg/dL (8.5-10.5) 04/26/22 05:38 Troponin T Baseline 21 ng/L (0-15) H 04/25/22 17:45 Troponin T 120 Minute 21.77 ng/L (0-15) H 04/25/22 19:37 Delta Troponin T 0.77 ABS# (0-10) 04/25/22 19:37 Troponin T Hi Sens 6Hr 23.25 ng/L (0-15) H 04/25/22 23:45 Troponin T Hi Sens 6Hr Delta 2.25 ng/L (0-12) 04/25/22 23:45 NT-Pro-B Natriuret Pep 533 pg/mL (0-125) H 04/26/22 05:38 Discharge Plan Discharge Patient Disposition: Admitted As Inpatient Admit Provider: Ricky Cheng Clinical Impression: Chest pain Condition: Stable Coding Level of Care Code ED Emery Grinder for Chg Fwd Exam Comprehensive
[2022-04-25 17:55] LABS: Basophils # 0.1 10^3/uL (0.0-0.1); Basophils % 1.1 %; Eosinophils # 0.4 10^3/uL (0.0-0.8); Eosinophils % 4.4 %; Hematocrit 41.5 % (42.0-52.0); Hemoglobin 13.2 g/dL (11.7-16.6); Lymphocytes # 2.5 10^3/uL (0.8-4.8); Lymphocytes % 26.2 %; Mean Corpuscular HGB Conc 31.8 g/dL (30.0-36.0); Mean Corpuscular Hemoglobin 27.7 pg (28.0-34.0); Mean Corpuscular Volume 87.2 fl (80-94); Mean Platelet Volume 9.5 fL (7.4-10.4); Monocytes # 0.9 10^3/uL (0.2-0.9); Monocytes % 9.4 %; Neutrophils % 58.5 %; Nucleated Red Blood Cells % 0 %; Platelet Count 285 10^3/cmm (130-400); Red Blood Count 4.76 10^6/uL (4.1-5.3); Red Cell Distribution Width 13.2 % (12.1-15.1); White Blood Count 9.4 10^3/uL (4.0-10.0)
[2022-04-25 18:13] LABS: Troponin(5th) Baseline 21 ng/L (0-15)
[2022-04-25 18:14] LABS: Anion Gap 15.5 (5-19); Blood Urea Nitrogen 18 mg/dL (8-23); Calcium 9.4 mg/dL (8.5-10.5); Carbon Dioxide 26 mmol/L (22-29); Chloride 98 mmol/L (98-107); Glomerular Filtration Rate 84.4 mL/min (90-130); Glucose 101 mg/dL (65-115); Osmolality Calculated 282 mOsm/kg (285-295); Potassium 4.5 mmol/L (3.5-5.1); Sodium 135 mmol/L (136-145)
[2022-04-25] MEDS: ondansetron 2 mg/ML SDV 2 mL 4 MG IVP (18:42)
[2022-04-25] MEDS: morphine 4 mg/mL SDV 1 mL IVP ×2 (18:42→20:04)
--- NOTE | 2022-04-25 19:39 | ECG_ITS ---
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 Measurements Intervals [place] Rate: 64 P: [place]: QRS: 40 QRSD: 125 T: -13 QT: 396 QTc: 411 Interpretive Statements ATRIAL FIBRILLATION POSSIBLE ANTERIOR MYOCARDIAL INFARCTION , PROBABLY OLD [30 ms Q WAVE IN V3/V4, OR R < 0.2 mV IN V4] ABNORMAL RHYTHM ECG Compared to ECG 04/19/2022 02:46:33 Myocardial infarct finding now present Intraventricular conduction delay no longer present T-wave abnormality no longer present Electronically Signed On 04-25-2022 21:51:47 CDT by Patrick Moody M.D. [id number]
[2022-04-25 20:07] LABS: Troponin 5 2HR 21.77 ng/L (0-15)
[2022-04-25 20:09] LABS: Troponin 5 2HR Delta 0.77 ABS# (0-10)
--- NOTE | 2022-04-25 20:44 | PM.HP ---
Providers/Chief Complaint Primary Care Provider: Teodoro Jon DO Chief Complaint: chest pain History of Present Illness Dwayne Salinas is a 66 year old male with a past medical history of atrial fibrillation, history of CAD status post stenting, history of CABG, recent history of chest pain status post LAD stent, who presents [facility] due to chest pain. Patient was recently discharged on the seventh for chest pain with LAD stent placement, he has been waiting for his Eliquis for his atrial fibrillation from his primary care provider in [place], he finally received it today, has not taken a dose yet. He tells me that today he started develop severe substernal chest pain, nonradiating, no diaphoresis, no lightheadedness, dizziness, shortness of breath. He took a nitroglycerin, the chest pain improved, but returned, he was concerned about taking another nitroglycerin due to low blood pressures. He presented the emergency room, his first troponin was 20, EKG showing atrial fibrillation, no acute ST-T wave changes, Dr. Moody has been contacted by ER provider, hospitalist team was called for admission. He is still having some low-grade chest pain, given multiple doses of morphine, hemodynamically stable, blood pressure 155/80, pulse 69, atrial fibrillation, respiratory rate 18, temperature 98.1, on room air Review of Systems Const: Denies: fever(s) Card: Reports: chest pain Resp: Denies: dyspnea GI: Denies: abdominal pain : Denies: dysuria Musc: Denies: back pain Neuro: Denies: headache(s) or weakness in extremities Medications/Allergies Home Medications Medication Instructions Recorded Confirmed Last Taken Type acetaminophen 500 mg tablet 1,000 mg PO TID PRN Pain 09/17/19 04/25/22 Unknown History (Tylenol Extra Strength) aspirin 81 mg chewable tablet 81 mg PO BEDTIME 09/17/19 04/25/22 04/24/22 History carvedilol 25 mg tablet See Rx Instructions .Route .COMPLEX 09/17/19 04/25/22 04/25/22 History cholecalciferol (vitamin D3) 50 2,000 unit PO QAM 09/17/19 04/25/22 04/25/22 History mcg (2,000 unit) tablet clopidogrel 75 mg tablet 75 mg PO QAM 09/17/19 04/25/22 04/25/22 History furosemide 20 mg tablet 20 mg PO QAM 09/17/19 04/25/22 04/25/22 History omeprazole 20 mg capsule,delayed 20 mg PO BID 09/17/19 04/25/22 04/25/22 History release potassium chloride 20 mEq 20 meq PO QAM 09/17/19 04/25/22 04/25/22 History tablet,extended release spironolactone 25 mg tablet 12.5 mg PO QAM 09/17/19 04/25/22 04/25/22 History tramadol 50 mg tablet 100 mg PO TID PRN Pain 09/17/19 04/25/22 09/18/19 History 50 mg aogtancg-exs-octek acid 300 1 tab PO QAM 09/19/19 04/25/22 04/25/22 History mcg-lycopene 600 mcg-lutein 300 mcg tablet (Centrum Silver Men) simvastatin 20 mg tablet 20 mg PO BEDTIME 10/25/19 04/25/22 04/24/22 History enalapril maleate 5 mg tablet 5 mg PO BID 10/19/20 04/25/22 04/25/22 History metformin 500 mg tablet,extended 1,000 mg PO BID 05/13/21 04/25/22 04/25/22 History release 24 hr escitalopram oxalate 10 mg tablet 10 mg PO QAM 03/24/22 04/25/22 04/25/22 History glyburide 1.25 mg tablet 1.25 mg PO QAM 03/24/22 04/25/22 04/25/22 History sildenafil 25 mg tablet 25 mg PO PRN #30 tabs 04/08/22 04/25/22 Unknown Rx ascorbic acid (vitamin C) 1,000 mg 1,000 mg PO QAM 04/19/22 04/25/22 04/25/22 History tablet (Vitamin C) cyanocobalamin (vitamin B-12) 1,000 mcg PO QAM 04/19/22 04/25/22 04/25/22 History 1,000 mcg tablet (Vitamin B-12) nitroglycerin 0.4 mg sublingual 0.4 mg sublingual Q5M PRN Chest 04/19/22 04/25/22 04/25/22 History tablet (Nitrostat) Pain zinc 50 mg tablet 50 mg PO QAM 0904/25/22 04/25/22 History Allergies Allergy/AdvReac Type Severity Reaction Status Date / Time penicillin G Allergy HIVES Verified 04/18/22 22:10 Penicillins Allergy ALGY-Hives Verified 04/19/22 08:02 propoxyphene Allergy VERY SHORT Verified 04/18/22 22:10 [From Darvocet-N] OF BREATH PFSH Acute PFSH: Medical History (Updated 04/25/22 @ 20:48 by Ricky Cheng MD) Adult-onset obesity Anxiety Atrial fibrillation with controlled ventricular rate CAD (coronary artery disease) Followed by Dr. Morrison, history of stenting and CABG GERD (gastroesophageal reflux disease) Hyperlipidemia Hypertension Ischemic cardiomyopathy PAD (peripheral artery disease) Systolic congestive heart failure last echo 10/2017- LVEF 40%, normal diastolic function, trace MR. Type 2 diabetes mellitus, without long-term current use of insulin Surgical History Coronary angioplasty status 04/25/15: balloon angioplasty to PDA and PLB, GOMEZ to LAD patent, SVG to OM 1 patent, SVG to PDA patent. Prox RCA 60% stenosis. History of cardiac radiofrequency ablation History of carpal tunnel release History of cholecystectomy History of femoropopliteal bypass Left common femoral artery bypass surgery performed by Dr. Carrillo on 12/15/2014 History of surgery on extremity 12/28/2014: Right groin and femoral artery exploration and primary repair of right femoral artery catheterization site History of umbilical hernia repair S/P CABG x 3 GOMEZ to LAD, SVG to OM1, SVG to PDA Family History Brother CAD (coronary artery disease) Diabetes Hyperlipidemia Hypertension Mother CAD (coronary artery disease) Cancer Diabetes Hyperlipidemia Hypertension Grandfather Cancer Father Diabetes Hyperlipidemia Hypertension Denies family history of Clotting disorder Dementia Psychiatric illness Chronic kidney disease (CKD) Suicide Anesthesia complication Bleeding disorder Family history of premature coronary artery disease Lung disease Stroke Social History Smoking and tobacco status: former smoker (10/1994) Alcohol intake: never Vitals/I&O/Wt Last Vital Signs Temp 98.1 F 04/25/22 17:12 Pulse 69 04/25/22 18:33 Resp 18 04/25/22 20:04 BP 155/84 04/25/22 18:33 Pulse Ox 96 04/25/22 18:42 O2 Del Method 04/25/22 17:12 Weight last 48 hrs Weight 114.305 kg Physical Exam Const: COMMON NORMALS: no acute distress and patient oriented x3 HENMT: COMMON NORMALS: normocephalic HEAD & SCALP: normocephalic Eye: COMMON NORMALS: Equal, round and reactive pupils present and EOMs intact bilaterally Neck/C-Spine: COMMON NORMALS: no JVD Lymph: LYMPHATIC: no lymphadenopathy noted Resp: COMMON NORMALS: normal respiratory effort, No retractions, No use of accessory muscles and clear to auscultation bilaterally AUSCULTATION: clear to auscultation bilaterally Cardio: COMMON NORMALS: no JVD, regular rate, regular rhythm, S1 normal heart sound present and S2 normal heart sound present RATE: regular rate RHYTHM: regular rhythm HEART SOUNDS: S1 normal heart sound present and S2 normal heart sound present GI: COMMON NORMALS: Normal to inspection, nondistended, normoactive bowel sounds present, Soft to palpation, non-tender, No hepatosplenomegaly present, no masses and no bruits PALPATION: Yes Soft to palpation and Yes No hepatosplenomegaly present Extremity: COMMON NORMALS: capillary refill normal, no clubbing, cyanosis or edema, no calf tenderness and no pedal edema Neuro: COMMON NORMALS: patient oriented x3 Psych: COMMON NORMALS: mental status grossly normal Data : 04/25/22 17:45 04/25/22 17:45 A&P Assessment and plan (1) Unstable angina: Status: Acute (2) Atherosclerosis of coronary artery of [place] heart without angina pectoris: Status: Acute (3) S/P CABG x 3: Status: Acute (4) Systolic congestive heart failure: Status: Acute (5) CAD (coronary artery disease): Status: Acute Qualifiers: Coronary Disease-Associated Artery/Lesion type: [place] artery [place] vs. transplanted heart: [place] heart Associated angina: with stable angina Qualified Code(s): I25.118 - Atherosclerotic heart disease of [place] coronary artery with other forms of angina pectoris (6) Hyperlipidemia: Status: Acute Qualifiers: Hyperlipidemia type: other hyperlipidemia Qualified Code(s): E78.49 - Other hyperlipidemia (7) Hypertension: Status: Acute Qualifiers: Hypertension type: essential hypertension Qualified Code(s): I10 - Essential (primary) hypertension (8) Type 2 diabetes mellitus, without long-term current use of insulin: Status: Acute Plan Unstable angina -With history of recent LAD stenting -History of CAD, stray of CABG -Cardiac echo 04/19/2022 -1. Normal left ventricular size, systolic function and wall ?thickness. Left ventricular ejection fraction is mildly reduced ?with ejection fraction estimated at 50 %.? There seems to be ?hypokinesis of distal septal and inferior martino. Abnormal septal ?motion. ?2. Normal right ventricular size and systolic function. ?3. No significant change when compared to echo dated 09/19/2019. Plan -Admit to cardiac stepdown unit -Serial EKGs, serial troponins, telemetry monitoring -Monitor for chest pain -If he continues have chest pain will consider nitro drip -Dilaudid as needed for chest pain -Aspirin, statin, Plavix -We will hold off on starting Eliquis, he was supposed to started today, but held off, switch to therapeutic Lovenox, can start Eliquis on discharge -Insulin size code for type 2 diabetes -Atrial fibrillation, Lovenox, Eliquis on discharge, Coreg -Systolic CHF, not in exacerbation, continue to monitor -Coreg -Full code -Lovenox for DVT prophylaxis -Cardiology has been consulted Attestations Medical Necessity Statement*: Patient requires hospitalization, outpatient observation for unstable angina Coding Level of Care Code Acute 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 transplanted heart: [place] heart Associated angina: with stable angina Hyperlipidemia E78.49 Hyperlipidemia type: other hyperlipidemia Hypertension I10 Hypertension type: essential hypertension Type 2 diabetes mellitus, without long-term current use of insulin E11.9
[2022-04-25] MEDS: nitroglycerin drip 50 MG/250 ML PREMIX IV (23:21)
[2022-04-26] VITALS (76 sets, daily range): BP systolic 124–163; BP diastolic 63–93; PULSE 58–77; RESP 8–27; TEMP 36.4–36.7; O2SAT 93–99
[2022-04-26 00:28] LABS: Troponin 5 6HR 23.25 ng/L (0-15)
[2022-04-26 00:30] LABS: Troponin 5 6HR Delta 2.25 ng/L (0-12)
[2022-04-26] MEDS: pantoprazole 40 mg SDV IVP (05:12)
[2022-04-26] MEDS: spironolactone 25 mg Tablet 12.5 MG PO (05:13)
[2022-04-26] MEDS: cyanocobalamin 1,000 mcg Tablet 1000 MCG PO (05:13)
[2022-04-26] MEDS: FUROsemide 20 mg Tablet PO (05:15)
[2022-04-26] MEDS: clopidogrel 75 mg Tablet PO (05:15)
[2022-04-26] MEDS: atorvastatin 40 mg Tablet 20 MG PO ×2 (05:15→20:48)
[2022-04-26] MEDS: potassium chloride ER 20 mEq Tablet PO (05:15)
[2022-04-26] MEDS: carvedilol 25 mg Tablet PO (05:15)
[2022-04-26] MEDS: aspirin 81 mg Chew Tablet PO ×2 (05:16→20:48)
[2022-04-26] MEDS: escitalopram 10 mg Tablet PO (05:16)
[2022-04-26] MEDS: enoxaparin 120 mg/0.8 mL Syringe 110 MG SUBCUT ×2 (05:16→16:24)
[2022-04-26] MEDS: zinc gluconate 50 mg Tablet PO (05:16)
[2022-04-26 05:34] LABS: Glucose Point of Care 132 mg/dL (70-110)
[2022-04-26 05:43] LABS: Basophils # 0.1 10^3/uL (0.0-0.1); Basophils % 1.2 %; Eosinophils # 0.4 10^3/uL (0.0-0.8); Eosinophils % 4.4 %; Hematocrit 41.9 % (42.0-52.0); Hemoglobin 12.8 g/dL (11.7-16.6); Lymphocytes # 2.3 10^3/uL (0.8-4.8); Lymphocytes % 24.7 %; Mean Corpuscular HGB Conc 30.5 g/dL (30.0-36.0); Mean Corpuscular Hemoglobin 27.6 pg (28.0-34.0); Mean Corpuscular Volume 90.3 fl (80-94); Mean Platelet Volume 9.5 fL (7.4-10.4); Monocytes % 10.6 %; Neutrophils # 5.46 10^3/uL (1.8-7.7); Neutrophils % 58.6 %; Nucleated Red Blood Cells % 0 %; Platelet Count 265 10^3/cmm (130-400); Red Blood Count 4.64 10^6/uL (4.1-5.3); Red Cell Distribution Width 13.3 % (12.1-15.1); White Blood Count 9.3 10^3/uL (4.0-10.0)
[2022-04-26 06:03] LABS: Blood Urea Nitrogen 16 mg/dL (8-23); Carbon Dioxide 25 mmol/L (22-29); Chloride 99 mmol/L (98-107); Glomerular Filtration Rate 84.4 mL/min (90-130); Glucose 139 mg/dL (65-115); Osmolality Calculated 281 mOsm/kg (285-295); Sodium 134 mmol/L (136-145)
[2022-04-26 06:04] LABS: Anion Gap 14.5 (5-19); Potassium 4.5 mmol/L (3.5-5.1)
[2022-04-26] MEDS: cholecalciferol (vitamin D3) 1,000 unit Tablet 2000 UNIT PO (06:10)
[2022-04-26 06:13] LABS: NT Pro B Type Natriuretic Pept 533 pg/mL (0-125)
--- NOTE | 2022-04-26 12:29 | USCV_ITS ---
Dwayne Salinas Age: 66 Gender: M : 1955 Exam Date: 04/26/2022 13:51 Ordering Phys: Satinder Chapa MD Technologist: CHACE Exam Location: [facility] [place] Indication: EF ONLY, CHEST PAIN BP: 151 / 81 HR: 78 Rhythm: Sinus Technical Quality: Adequate MEASUREMENTS (Male / Female) Normal Values 2D ECHO LV Ejection Fraction MOD 2C 27.7 % LV Ejection Fraction 2C AL 28.7 % FINDINGS Left Ventricle Right Ventricle Right Atrium Left Atrium Mitral Valve Aortic Valve Tricuspid Valve Pulmonic Valve Pericardium Aorta IVC CONCLUSIONS This is a limited echocardiogram performed to assess LV systolic function. LV systolic function is mildly reduced with EF of 40 to 45%. Moderate to severe hypokinesis of inferior wall is seen. Comparison with prior echocardiogram is not possible as last echo was of limited quality and contrast was not used.. Patrick Moody MD (Electronically Signed) Final Date: 26 April 2022 16:18 S
[2022-04-26 13:52] LABS: Glucose Point of Care 156 mg/dL (70-110)
--- NOTE | 2022-04-26 14:27 | P.CONIM_ITS ---
Providers/Reason For Consult Consulting Physician/Specialty*: Patrick Moody MD/Cardiology Reason for Consult*: Chest pain Requesting Physician: Dr Chapa Attending Physician: Satinder Chapa Primary Care Provider: Teodoro Jon DO History of Present Illness History of Present Illness Dwayne Salinas is a 66 year old male with past medical history of CAD s/p CABG with patent SVG to OM and RCA and GOMEZ to LAD in 2015, peripheral artery disease with left-sided bypass, diabetes and hypertension who had recent LAD stenting. He presented to the hospital with chest pain episodes. Echocardiogram showed mildly reduced LV systolic function. Comparison with prior echocardiogram is not possible. Troponins were not trended up significantly. EKG shows atrial fibrillation with a heart rate of [address]-T wave changes on EKG. Review of Systems Const: Denies: fever(s) or chills Eyes: Denies: change in vision ENMT: Denies: mouth pain Card: Reports: chest pain and dyspnea on exertion; Denies: palpitations Resp: Reports: dyspnea; Denies: non-productive cough GI: Denies: abdominal pain, nausea, vomiting or diarrhea : Denies: dysuria Musc: Denies: extremity pain Skin/Breast: Denies: rash or new lesions Neuro: Denies: weakness in extremities Psych: Reports: other (Normal mood) Marcus/Lymph: Denies: easy bruising Medications/Allergies Home Medications Medication Instructions Recorded Confirmed Last Taken Type acetaminophen 500 mg tablet 1,000 mg PO TID PRN Pain 09/17/19 05/05/22 Unknown History (Tylenol Extra Strength) carvedilol 25 mg tablet See Rx Instructions .Route .COMPLEX 09/17/19 05/10/22 04/25/22 History cholecalciferol (vitamin D3) 50 2,000 unit PO QAM 09/17/19 05/05/22 04/25/22 History mcg (2,000 unit) tablet clopidogrel 75 mg tablet 75 mg PO QAM 09/17/19 05/10/22 04/25/22 History furosemide 20 mg tablet 20 mg PO QAM 09/17/19 05/10/22 04/25/22 History omeprazole 20 mg capsule,delayed 20 mg PO BID 09/17/19 05/05/22 04/25/22 History release potassium chloride 20 mEq 20 meq PO QAM 09/17/19 05/10/22 04/25/22 History tablet,extended release spironolactone 25 mg tablet 12.5 mg PO QAM 09/17/19 05/10/22 04/25/22 History tramadol 50 mg tablet 100 mg PO TID PRN Pain 09/17/19 05/10/22 09/18/19 History 50 mg sgrauhci-edn-hmbnu acid 300 1 tab PO QAM 09/19/19 05/05/22 04/25/22 History mcg-lycopene 600 mcg-lutein 300 mcg tablet (Centrum Silver Men) simvastatin 20 mg tablet 20 mg PO BEDTIME 10/25/19 05/10/22 04/24/22 History enalapril maleate 5 mg tablet 5 mg PO BID 10/19/20 05/05/22 04/25/22 History metformin 500 mg tablet,extended 1,000 mg PO BID 05/13/21 05/10/22 04/25/22 History release 24 hr escitalopram oxalate 10 mg tablet 10 mg PO QAM 03/24/22 05/10/22 04/25/22 History glyburide 1.25 mg tablet 1.25 mg PO QAM 03/24/22 05/10/22 04/25/22 History ascorbic acid (vitamin C) 1,000 mg 1,000 mg PO QAM 04/19/22 05/05/22 04/25/22 History tablet (Vitamin C) cyanocobalamin (vitamin B-12) 1,000 mcg PO QAM 04/19/22 05/05/22 04/25/22 History 1,000 mcg tablet (Vitamin B-12) nitroglycerin 0.4 mg sublingual 0.4 mg sublingual Q5M PRN Chest 04/19/22 05/05/22 04/25/22 History tablet (Nitrostat) Pain zinc 50 mg tablet 50 mg PO QAM 04/19/22 05/05/22 04/25/22 History isosorbide mononitrate 30 mg 30 mg PO DAILY #90 tabs 04/27/22 05/05/22 Unknown Rx tablet,extended release 24 hr ranolazine 500 mg tablet,extended 500 mg PO BID #180 tabs 04/27/22 05/05/22 Unknown Rx release,12 hr apixaban 5 mg tablet (Eliquis) 5 mg PO BID #180 tabs 05/05/22 05/05/22 Unknown Rx sildenafil (pulm.hypertension) 20 20 mg PO 05/10/22 05/10/22 Unknown History mg tablet Allergies Allergy/AdvReac Type Severity Reaction Status Date / Time penicillin G Allergy HIVES Verified 05/10/22 12:39 Penicillins Allergy ALGY-Hives Verified 05/10/22 12:39 propoxyphene Allergy VERY SHORT Verified 05/10/22 12:39 [From Darcet-N] OF BREATH Current Medications Generic Name Dose Route Start Last Admin Trade Name Freq PRN Reason Stop Dose Admin Aspirin 81 mg 04/26/22 03:48 04/26/22 05:16 Aspirin 81 Mg Chew Tablet PO 81 mg BEDTIME NELIDA Administration Atorvastatin Calcium 20 mg 04/26/22 03:48 04/26/22 05:15 Atorvastatin 40 Mg Tablet PO 20 mg BEDTIME NELIDA Administration Carvedilol 25 mg 04/26/22 06:00 04/26/22 05:15 Carvedilol 25 Mg Tablet PO 25 mg QAM NELIDA Administration Clopidogrel Bisulfate 75 mg 04/26/22 06:00 04/26/22 05:15 Clopidogrel 75 Mg Tablet PO 75 mg QAM NELIDA Administration Cyanocobalamin 1,000 mcg 04/26/22 06:00 04/26/22 05:13 Cyanocobalamin 1,000 Mcg Tablet PO 1,000 mcg QAM NELIDA Administration Enalapril Maleate 5 mg 04/26/22 09:00 04/26/22 09:06 Enalapril 10 Mg Tablet PO 5 mg BID NELIDA Administration Enoxaparin Sodium 110 mg 04/26/22 03:48 04/26/22 05:16 Enoxaparin 120 Mg/0.8 Ml Syringe SUBCUT 110 mg Q12H NELIDA Administration Escitalopram Oxalate 10 mg 04/26/22 06:00 04/26/22 05:16 Escitalopram 10 Mg Tablet PO 10 mg QAM NELIDA Administration Furosemide 20 mg 04/26/22 06:00 04/26/22 05:15 Furosemide 20 Mg Tablet PO 20 mg QAM NELIDA Administration Nitroglycerin/Dextrose 50 mg in 250 mls @ 0 mls/hr 04/25/22 22:00 04/26/22 09:16 Nitroglycerin Drip IV 13 mcg/min .Q0M NELIDA 3.9 mls/hr Titration Protocol Per Protocol Insulin Human Lispro 0 unit 04/26/22 03:48 04/26/22 08:25 Insulin Lispro 100 Unit/1 Ml SUBCUT Not Given WM&BEDTIME NELIDA Protocol Pantoprazole Sodium 40 mg 04/26/22 03:48 04/26/22 05:12 Pantoprazole 40 Mg Sdv IVP 40 mg Q24H NELIDA Administration Potassium Chloride 20 meq 04/26/22 06:00 04/26/22 05:15 Potassium Chloride Er 20 Meq Tablet PO 20 meq QAM NELIDA Administration Spironolactone 12.5 mg 04/26/22 06:00 04/26/22 05:13 Spironolactone 25 Mg Tablet PO 12.5 mg QAM NELIDA Administration Vitamin D 2,000 unit 04/26/22 06:00 04/26/22 06:10 Cholecalciferol (Vitamin D3) 1,000 Unit Tablet PO 2,000 unit QAM NELIDA Administration Zinc Gluconate 50 mg 04/26/22 06:00 04/26/22 05:16 Zinc Gluconate 50 Mg Tablet PO 50 mg QAM NELIDA Administration PFSH Acute PFSH: Medical History Adult-onset obesity Anxiety Atrial fibrillation with controlled ventricular rate CAD (coronary artery disease) Followed by Dr. Morrison, history of stenting and CABG GERD (gastroesophageal reflux disease) Hyperlipidemia Hypertension Ischemic cardiomyopathy PAD (peripheral artery disease) Systolic congestive heart failure last echo 10/2017- LVEF 40%, normal diastolic function, trace MR. Type 2 diabetes mellitus, without long-term current use of insulin Surgical History Coronary angioplasty status 04/25/15: balloon angioplasty to PDA and PLB, GOMEZ to LAD patent, SVG to OM 1 patent, SVG to PDA patent. Prox RCA 60% stenosis. History of cardiac radiofrequency ablation History of carpal tunnel release History of cholecystectomy History of femoropopliteal bypass Left common femoral artery bypass surgery performed by Dr. Carrillo on 12/15/2014 History of surgery on extremity 12/28/2014: Right groin and femoral artery exploration and primary repair of right femoral artery catheterization site History of umbilical hernia repair S/P CABG x 3 GOMEZ to LAD, SVG to OM1, SVG to PDA Family History Brother CAD (coronary artery disease) Diabetes Hyperlipidemia Hypertension Mother CAD (coronary artery disease) Cancer Diabetes Hyperlipidemia Hypertension Grandfather Cancer Father Diabetes Hyperlipidemia Hypertension Denies family history of Clotting disorder Dementia Psychiatric illness Chronic kidney disease (CKD) Suicide Anesthesia complication Bleeding disorder Family history of premature coronary artery disease Lung disease Stroke Social History Smoking and tobacco status: former smoker (10/1994) Alcohol intake: never Vitals/I&O/Wt Last Vital Signs Temp 98.1 F 04/26/22 02:00 Pulse 69 04/26/22 08:00 Resp 19 H 04/26/22 08:00 BP 124/71 04/26/22 08:00 Pulse Ox 96 04/26/22 08:00 O2 Del Method 04/26/22 08:00 O2 Flow Rate 2.5 04/26/22 04:00 04/25/22 04/26/22 04/26/22 22:59 06:59 14:59 Intake Total 5.230 / 5.230 26.58 / 26.58 Balance 5.230 / 5.230 26.58 / 26.58 Weight last 48 hrs Weight 252 lb Physical Exam Narrative: GENERAL: Patient is alert, awake and oriented x3. [] NECK: No jugular vein distension. [] HEENT: No cyanosis. No icterus. No pallor. [] HEART: Irregularly irregular LUNGS: Clear to auscultate bilaterally. [] ABDOMEN: Soft, nontender and nondistended. Positive bowel sounds. No guarding, rebound or tenderness. [] CENTRAL NERVOUS SYSTEM: Grossly nonfocal. [] EXTREMITIES: Lower extremities with 1+ edema bilaterally. Data : 04/27/22 02:51 04/27/22 02:51 A&P Assessment and plan (1) S/P CABG x 3: Status: Acute (2) Systolic congestive heart failure: Status: Acute (3) PAD (peripheral artery disease): Status: Acute (4) Hypertension: Status: Acute Qualifiers: Hypertension type: essential hypertension Qualified Code(s): I10 - Essential (primary) hypertension (5) Hyperlipidemia: Status: Acute Qualifiers: Hyperlipidemia type: other hyperlipidemia Qualified Code(s): E78.49 - Other hyperlipidemia (6) Chest pain: Status: Acute Plan Patient had a recent PCI of proximal LAD and balloon angioplasty of ostial diagonal artery. GOMEZ to LAD was patent. Given no ST elevation on EKG and no significant change in LV systolic function, there is chest discomfort is likely related to microvascular dysfunction. We will uptitrate Imdur as blood pressure allows. Will add Ranexa as well. Continue aspirin and plavix Observe overnight. Serial EKGs if more chest pain. Thank you for involving us with care of this patient. Please call with questions. Consult Attestations Medical Necessity Statement: Care expected to cross 2 midnights. 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
[2022-04-26] MEDS: perflutren protein-a microsphr 0.22 mg/mL SDV 3 mL IV (15:43)
[2022-04-26 16:32] LABS: Glucose Point of Care 201 mg/dL (70-110)
--- NOTE | 2022-04-26 18:07 | PC.NURSE ---
Addendum entered by Deanna Lucio RN 04/26/22 18:31: pt is in afib at controlled rate on monitor...not sr Original Note: received into room 276-1 from er at 1805.report received.sr on monitor.pt on nitro drip at 9mcg/min.denies chest pain at present.oriented to room environment.instructed to notify staff for any chest pain,sob,dizziness...or for any concerns at all.pt verb understanding of instructions.
[2022-04-26 18:29] LABS: Glucose Point of Care 200 mg/dL (70-110)
[2022-04-26] MEDS: carvedilol 12.5 mg Tablet PO (18:32)
[2022-04-26] MEDS: insulin lispro 100 unit/1 mL SUBCUT ×2 (18:33→20:48)
[2022-04-26 20:40] LABS: Glucose Point of Care 162 mg/dL (70-110)
--- NOTE | 2022-04-26 20:58 | P.PN_ITS ---
Subjective Subjective: This morning having further chest pain, necessitating initiation of nitroglycerin drip. Treatment visit feeling better. Minimal residual discomfort. Denies shortness of breath. No headache. Vitals/I&O/Wt Last Vital Signs Temp 97.5 F L 04/26/22 19:56 Pulse 71 04/26/22 19:56 Resp 26 H 04/26/22 19:56 BP 141/81 04/26/22 19:56 Pulse Ox 94 04/26/22 19:56 O2 Del Method 04/26/22 08:00 O2 Flow Rate 2.5 04/26/22 04:00 04/26/22 04/26/22 04/26/22 06:59 14:59 22:59 Intake Total 5.230 / 5.230 26.58 / 26.58 31.97 / 58.55 Output Total 600 / 600 Balance 5.230 / 5.230 26.58 / 26.58 -568.03 / -541.45 Weight last 48 hrs Weight 114.305 kg Physical Exam Narrative: Family at bedside. Const: COMMON NORMALS: patient oriented x3 and alert GENERAL APPEARANCE: cooperative ORIENTATION/CONSCIOUSNESS: Yes awake HENMT: COMMON NORMALS: oropharynx normal Neck/C-Spine: COMMON NORMALS: no JVD Resp: COMMON NORMALS: normal respiratory effort and clear to auscultation bilaterally AUSCULTATION: clear to auscultation bilaterally Cardio: COMMON NORMALS: no JVD, regular rhythm, S1 normal heart sound present, S2 normal heart sound present and No murmurs present (Cardio) RHYTHM: regular rhythm HEART SOUNDS: S1 normal heart sound present and S2 normal heart sound present GI: COMMON NORMALS: Normal to inspection, nondistended, normoactive bowel sounds present, Soft to palpation and non-tender PALPATION: Yes Soft to palpation Extremity: COMMON NORMALS: no joint enlargement and no pedal edema Neuro: COMMON NORMALS: patient oriented x3 and moves all extremities SENSORIUM/ORIENTATION: Yes alert Skin: COMMON NORMALS: no rashes or lesions noted GENERAL SKIN EXAM: no rashes or lesions noted Data : 04/26/22 05:38 04/26/22 05:38 A&P Assessment and plan (1) Unstable angina: Appreciate cardiology assessment regarding chest pain. No evidence of ST elevation or other findings to suggest in-stent thrombosis. Limited echocardiogram assessed. Noted EF 40-45%, comparison to prior not possible. Not likely NSTEMI. Appreciate cardiology recommendation. Suspected microvascular involvement. Optimize antianginal control. Add Imdur, Ranexa. Wean off nitro drip. Status: Acute (2) Atherosclerosis of coronary artery of [place] heart without angina pectoris: Status: Acute (3) S/P CABG x 3: Status: Acute (4) Systolic congestive heart failure: IV Lasix 20 mg x 1 as per discussion with cardiology. Monitor I&O. Reassess volume status. Status: Acute (5) CAD (coronary artery disease): Status: Acute Qualifiers: Coronary Disease-Associated Artery/Lesion type: [place] artery [place] vs. transplanted heart: [place] heart Associated angina: with stable angina Qualified Code(s): I25.118 - Atherosclerotic heart disease of [place] coronary artery with other forms of angina pectoris (6) Hyperlipidemia: Status: Acute Qualifiers: Hyperlipidemia type: other hyperlipidemia Qualified Code(s): E78.49 - Other hyperlipidemia (7) Hypertension: Status: Acute Qualifiers: Hypertension type: essential hypertension Qualified Code(s): I10 - Essential (primary) hypertension (8) Type 2 diabetes mellitus, without long-term current use of insulin: Status: Acute Plan A. fib: Rate controlled. Continue carvedilol. Currently Lovenox. Start oral anticoagulant at discharge. Attestations Medical Necessity Statement*: Continue admission for cyst prevention of chest pain and gentleman with underlying coronary disease. Coding Level of Care Code Acute Relay Motorman for [facility] Fwd Diagnoses Unstable angina I20.0 Atherosclerosis of coronary artery of [place] heart without angina pectoris I25.10 S/P CABG x 3 Z95.1 Systolic congestive heart failure I50.20 CAD (coronary artery disease) I25.118 Coronary Disease-Associated Artery/Lesion type: [place] artery [place] vs. transplanted heart: [place] heart Associated angina: with stable angina Hyperlipidemia E78.49 Hyperlipidemia type: other hyperlipidemia Hypertension I10 Hypertension type: essential hypertension Type 2 diabetes mellitus, without long-term current use of insulin E11.9
[2022-04-26] MEDS: ranolazine (12HR) 500 mg Tablet PO (21:07)
[2022-04-26] MEDS: FUROsemide 10 mg/mL SDV 2mL 20 MG IVP (21:07)
[2022-04-27] VITALS: BP 121/67; PULSE 85; RESP 18; TEMP 36.7; O2SAT 93
[2022-04-27 01:58] VITALS: PULSE 0
[2022-04-27 03:24] LABS: Basophils # 0.1 10^3/uL (0.0-0.1); Basophils % 0.8 %; Eosinophils # 0.4 10^3/uL (0.0-0.8); Eosinophils % 3.3 %; Hematocrit 44.1 % (42.0-52.0); Hemoglobin 13.9 g/dL (11.7-16.6); Lymphocytes # 2.1 10^3/uL (0.8-4.8); Lymphocytes % 19.5 %; Mean Corpuscular HGB Conc 31.5 g/dL (30.0-36.0); Mean Corpuscular Hemoglobin 27.6 pg (28.0-34.0); Mean Corpuscular Volume 87.5 fl (80-94); Mean Platelet Volume 9.8 fL (7.4-10.4); Monocytes # 1.1 10^3/uL (0.2-0.9); Monocytes % 10.3 %; Neutrophils # 7.21 10^3/uL (1.8-7.7); Neutrophils % 65.6 %; Nucleated Red Blood Cells % 0 %; Platelet Count 308 10^3/cmm (130-400); Red Blood Count 5.04 10^6/uL (4.1-5.3); Red Cell Distribution Width 13.2 % (12.1-15.1)
[2022-04-27 03:41] LABS: Anion Gap 16.2 (5-19); Blood Urea Nitrogen 17 mg/dL (8-23); Calcium 9.4 mg/dL (8.5-10.5); Carbon Dioxide 26 mmol/L (22-29); Chloride 96 mmol/L (98-107); Glucose 174 mg/dL (65-115); Osmolality Calculated 284 mOsm/kg (285-295); Potassium 4.2 mmol/L (3.5-5.1); Sodium 134 mmol/L (136-145)
[2022-04-27 04:00] VITALS: BP 134/72; PULSE 68; RESP 20; TEMP 36.8; O2SAT 96
[2022-04-27 04:48] VITALS: PULSE 0
[2022-04-27] MEDS: zinc gluconate 50 mg Tablet PO (05:03)
[2022-04-27] MEDS: spironolactone 25 mg Tablet 12.5 MG PO (05:03)
[2022-04-27] MEDS: escitalopram 10 mg Tablet PO (05:03)
[2022-04-27] MEDS: FUROsemide 20 mg Tablet PO (05:03)
[2022-04-27] MEDS: cyanocobalamin 1,000 mcg Tablet 1000 MCG PO (05:03)
[2022-04-27] MEDS: cholecalciferol (vitamin D3) 1,000 unit Tablet 2000 UNIT PO (05:03)
[2022-04-27] MEDS: clopidogrel 75 mg Tablet PO (05:03)
[2022-04-27] MEDS: potassium chloride ER 20 mEq Tablet PO (05:03)
[2022-04-27] MEDS: carvedilol 25 mg Tablet PO (05:03)
[2022-04-27] MEDS: enoxaparin 120 mg/0.8 mL Syringe 110 MG SUBCUT (05:04)
[2022-04-27] MEDS: pantoprazole 40 mg SDV IVP (05:04)
[2022-04-27 06:26] LABS: Glucose Point of Care 176 mg/dL (70-110)
[2022-04-27 07:17] VITALS: BP 111/71; PULSE 69; RESP 16; TEMP 36.7; O2SAT 97
--- NOTE | 2022-04-27 08:03 | P.PN_ITS ---
Subjective Subjective: Patient is feeling well. No chest pain. Vitals/I&O/Wt Last Vital Signs Temp 98.0 F 04/27/22 07:17 Pulse 69 04/27/22 07:17 Resp 16 04/27/22 07:17 BP 111/71 04/27/22 07:17 Pulse Ox 97 04/27/22 07:17 O2 Del Method 04/27/22 07:17 O2 Flow Rate 2 04/27/22 07:17 04/26/22 04/27/22 04/27/22 22:59 06:59 14:59 Intake Total 41.375 / 67.955 5.25 / 73.205 Output Total 600 / 600 1550 / 2150 Balance -558.625 / -532.045 -1544.75 / -2076.795 Weight last 48 hrs Weight 252 lb Physical Exam Narrative: GENERAL: Patient is alert, awake and oriented x3. [] NECK: No jugular vein distension. [] HEENT: No cyanosis. No icterus. No pallor. [] HEART: Irregularly irregular LUNGS: Clear to auscultate bilaterally. [] ABDOMEN: Soft, nontender and nondistended. Positive bowel sounds. No guarding, rebound or tenderness. [] CENTRAL NERVOUS SYSTEM: Grossly nonfocal. [] EXTREMITIES: Lower extremities with 1+ edema bilaterally. Data : 04/27/22 02:51 04/27/22 02:51 A&P Assessment and plan (1) S/P CABG x 3: Status: Acute (2) Systolic congestive heart failure: Status: Acute (3) PAD (peripheral artery disease): Status: Acute (4) Hypertension: Status: Acute Qualifiers: Hypertension type: essential hypertension Qualified Code(s): I10 - Essential (primary) hypertension (5) Hyperlipidemia: Status: Acute Qualifiers: Hyperlipidemia type: other hyperlipidemia Qualified Code(s): E78.49 - Other hyperlipidemia (6) Chest pain: Status: Acute Plan Patient is stable. No more chest pain. Continue Ranexa and Imdur. Low-sodium diet and exercise advised Continue aspirin Plavix Thank you for involving us with care of this patient. Patient is stable for discharge from cardiology standpoint. Please call with questions. Attestations Medical Necessity Statement*: Care expected to cross 2 midnights Coding Level of Care Code Acute Director Of [employer] for Chg Fwd Diagnoses S/P CABG x 3 Z95.1 Systolic congestive heart failure I50.20 PAD (peripheral artery disease) I73.9 Hypertension I10 Hypertension type: essential hypertension Hyperlipidemia E78.49 Hyperlipidemia type: other hyperlipidemia Chest pain R07.9
[2022-04-27] MEDS: insulin lispro 100 unit/1 mL SUBCUT (08:17)
[2022-04-27] MEDS: isosorbide mononitrate ER 30 mg Tablet PO (08:18)
[2022-04-27] MEDS: ranolazine (12HR) 500 mg Tablet PO (08:18)
--- NOTE | 2022-04-27 10:37 | PC.CHAP ---
Pastoral Care Encounter/Spiritual Assessment Type of Contact [] Declined joint cutter visit [] Patient/Family/Request visit [] Outpatient visit [] Follow-up visit [] Physician referral [] Code/Alert [x] Routine visit [] Staff referral [] Actively dying [] Patient sleeping [] Family support [] [] Out of room [] Palliative care [] [] Receiving care in room [] Pre-surgical visit [] Trauma [] Long length of stay [] ICU visit [] Other: Relational/Emotional Strength [x] Patient feels connected with others/family/visitors/staff [] Distress [] Loneliness/isolation [] Abandonment Spirituality of Patient [x] Person of [place] [x] Attends Yazdanism of their [place] [x] Believes in Prayer [x] Reads Bible or Jain materials [] There are Spiritual issues to be addressed [employer] Interventions [x] Prayer [x] Active listening [x] Non-anxious presence [x] Spiritual/emotional support [] Crisis/trauma care [] Spiritual counseling [] Bereavement support [] Provided bereavement packet [] Provided Bible/devotional materials [] Provided toy/stuffed animal, coloring book to patient or family member [] Provided Communion [] Anointing/[place] [] Salvation [x] Completed spiritual assessment [] Other: Impact on Illness or Injury [] Angry [] Fearful [] Anxious [] Often cries [] Exhaustion [] Unable to work [] Unable to attend latter-day [] Unable to walk/stand [] Unable to read [] Unable to drive [] Unable to eat/drink [] Unable to sleep [] Unable to be with family [] Patient intubated [] Other: Summary Met with [employer] Dwayne and his . Expecting discharge today. Time spent with patient 5m
[2022-04-27 11:07] VITALS: BP 111/71; PULSE 69; RESP 16; TEMP 36.7; O2SAT 97
--- NOTE | 2022-04-27 11:07 | PC.NURSE ---
Discharge Note Patient discharged to home via w/c accompanied by spouse. Discharge instructions reviewed with patient and/or nutrition representative. Mobile pharmacy medications and/or prescriptions provided. Belongings/home medications returned.
--- NOTE | 2022-04-27 12:37 | PM.DCS ---
Discharge Providers Date of Admission: 04/26/22 21:23 Date of Discharge: April 27, 2022 Attending Provider at Admission: Ricky Cheng MD Attending Provider at Discharge: Satinder Chapa Primary Care Provider: Teodoro Jon DO Diagnoses at Discharge Discharge Diagnosis (1) Unstable angina: Status: Acute (2) Atherosclerosis of coronary artery of [place] heart without angina pectoris: Status: Acute (3) S/P CABG x 3: Status: Acute Permanent problem details: GOMEZ to LAD, SVG to OM1, SVG to PDA (4) Systolic congestive heart failure: Status: Acute Permanent problem details: last echo 10/2017- LVEF 40%, normal diastolic function, trace MR. (5) CAD (coronary artery disease): Status: Acute Qualifiers: Coronary Disease-Associated Artery/Lesion type: [place] artery [place] vs. transplanted heart: [place] heart Associated angina: with stable angina Qualified Code(s): I25.118 - Atherosclerotic heart disease of [place] coronary artery with other forms of angina pectoris Permanent problem details: Followed by Dr. Morrison, history of stenting and CABG (6) Hyperlipidemia: Status: Acute Qualifiers: Hyperlipidemia type: other hyperlipidemia Qualified Code(s): E78.49 - Other hyperlipidemia (7) Hypertension: Status: Acute Qualifiers: Hypertension type: essential hypertension Qualified Code(s): I10 - Essential (primary) hypertension (8) Type 2 diabetes mellitus, without long-term current use of insulin: Status: Acute Reason for Visit Reason for Visit: chest pain Brief History: Dwayne Salinas is a 66 year old male with a past medical history of atrial fibrillation, history of CAD status post stenting, history of CABG, recent history of chest pain status post LAD stent, who presents [facility] due to chest pain.? Patient was recently discharged on the seventh for chest pain with LAD stent placement, he has been waiting for his Eliquis for his atrial fibrillation from his primary care provider in [place], he finally received it today, has not taken a dose yet.? He tells me that today he started develop severe substernal chest pain, nonradiating, no diaphoresis, no lightheadedness, dizziness, shortness of breath.? He took a nitroglycerin, the chest pain improved, but returned, he was concerned about taking another nitroglycerin due to low blood pressures.? He presented the emergency room, his first troponin was 20, EKG showing atrial fibrillation, no acute ST-T wave changes. Hospital Course Hospital Course There is persistence of chest discomfort he required transiently nitroglycerin drip. Was assessed by cardiology, limited echocardiogram was obtained which showed ejection fraction 40-45%, moderate to severe hypokinesis of inferior wall. Recent angiogram results were reviewed. Troponin series minimally elevated. He was started on antianginal therapy with suspicion of likely microvascular disease contribution, weaned off nitroglycerin drip. Remained chest pain-free subsequently. Was cleared for discharge from cardiology perspective. As he has recently received his Eliquis will remain on this medication, and is currently asked to continue on aspirin and Plavix until he is reassessed in 1 week in cardiology office at which point one of the medications may be de-escalated from triple therapy. He continues at discharge with Imdur, Ranexa. He is asked not to take sildenafil anytime he is on Imdur or taking nitrates, of which he and his state they are aware. Physical Exam Narrative: at bedside. Const: COMMON NORMALS: patient oriented x3 and alert GENERAL APPEARANCE: cooperative ORIENTATION/CONSCIOUSNESS: Yes awake HENMT: COMMON NORMALS: oropharynx normal Neck/C-Spine: COMMON NORMALS: no JVD Resp: COMMON NORMALS: normal respiratory effort and clear to auscultation bilaterally AUSCULTATION: clear to auscultation bilaterally Cardio: COMMON NORMALS: no JVD, regular rhythm, S1 normal heart sound present, S2 normal heart sound present and No murmurs present (Cardio) RHYTHM: regular rhythm HEART SOUNDS: S1 normal heart sound present and S2 normal heart sound present GI: COMMON NORMALS: Normal to inspection, nondistended, normoactive bowel sounds present, Soft to palpation and non-tender PALPATION: Yes Soft to palpation Extremity: COMMON NORMALS: no joint enlargement and no pedal edema Neuro: COMMON NORMALS: patient oriented x3 and moves all extremities SENSORIUM/ORIENTATION: Yes alert Skin: COMMON NORMALS: no rashes or lesions noted GENERAL SKIN EXAM: no rashes or lesions noted Discharge Data Studies Completed and Pending Completed Studies During Hospitalization Category Date Time Status XR chest 1V portable [id number] Stat Exams 04/25/22 17:32 Completed CV. echo lmt w/w contras [id number] Routine Ultrasound 04/26/22 12:29 Completed Radiology Impressions Chest X-Ray 04/25/22 17:32 IMPRESSION: Previous coronary artery bypass surgery and cardiomegaly. No acute abnormality identified. Laboratory Results WBC 11.0 10^3/uL (4.0-10.0) H 04/27/22 02:51 RBC 5.04 10^6/uL (4.1-5.3) 04/27/22 02:51 Hgb 13.9 g/dL (11.7-16.6) 04/27/22 02:51 Hct 44.1 % (42.0-52.0) 04/27/22 02:51 MCV 87.5 fl (80-94) 04/27/22 02:51 MCH 27.6 pg (28.0-34.0) L 04/27/22 02:51 MCHC 31.5 g/dL (30.0-36.0) 04/27/22 02:51 RDW 13.2 % (12.1-15.1) 04/27/22 02:51 Plt Count 308 10^3/cmm (130-400) 04/27/22 02:51 MPV 9.8 fL (7.4-10.4) 04/27/22 02:51 Neut % (Auto) 65.6 % 04/27/22 02:51 Lymph % (Auto) 19.5 % 04/27/22 02:51 [place] % (Auto) 10.3 % 04/27/22 02:51 Eos % (Auto) 3.3 % 04/27/22 02:51 Baso % (Auto) 0.8 % 04/27/22 02:51 Neut # (Auto) 7.21 10^3/uL (1.8-7.7) 04/27/22 02:51 Lymph # (Auto) 2.1 10^3/uL (0.8-4.8) 04/27/22 02:51 [place] # (Auto) 1.1 10^3/uL (0.2-0.9) H 04/27/22 02:51 Eos # (Auto) 0.4 10^3/uL (0.0-0.8) 04/27/22 02:51 Baso # (Auto) 0.1 10^3/uL (0.0-0.1) 04/27/22 02:51 Nucleated RBC % (auto) 0 % 04/27/22 02:51 Nucleated RBCs # 0.0 /100WBC 04/27/22 02:51 Sodium 134 mmol/L (136-145) L 04/27/22 02:51 Potassium 4.2 mmol/L (3.5-5.1) 04/27/22 02:51 Chloride 96 mmol/L (98-107) L 04/27/22 02:51 Carbon Dioxide 26 mmol/L (22-29) 04/27/22 02:51 Anion Gap 16.2 (5-19) 04/27/22 02:51 BUN 17 mg/dL (8-23) 04/27/22 02:51 Creatinine 1.1 mg/dL (0.7-1.2) 04/27/22 02:51 GFR Calculation 67.0 mL/min (90-130) L 04/27/22 02:51 Glucose 174 mg/dL (65-115) H 04/27/22 02:51 POC Glucose 176 mg/dL (70-110) H 04/27/22 06:12 Calculated Osmolality 284 mOsm/kg (285-295) L 04/27/22 02:51 Calcium 9.4 mg/dL (8.5-10.5) 04/27/22 02:51 Troponin T Baseline 21 ng/L (0-15) H 04/25/22 17:45 Troponin T 120 Minute 21.77 ng/L (0-15) H 04/25/22 19:37 Delta Troponin T 0.77 ABS# (0-10) 04/25/22 19:37 Troponin T Hi Sens 6Hr 23.25 ng/L (0-15) H 04/25/22 23:45 Troponin T Hi Sens 6Hr Delta 2.25 ng/L (0-12) 04/25/22 23:45 NT-Pro-B Natriuret Pep 533 pg/mL (0-125) H 04/26/22 05:38 Vitals Last Vital Signs Temp 98.0 F 04/27/22 11:07 Pulse 69 04/27/22 11:07 Resp 16 04/27/22 11:07 BP 111/71 04/27/22 11:07 Pulse Ox 97 04/27/22 11:07 O2 Del Method 04/27/22 07:17 O2 Flow Rate 2 04/27/22 07:17 Discharge Plan Discharge Patient Disposition: Home Condition: Stable Prescriptions: New isosorbide mononitrate 30 mg Tablet Extended Release 24 Hr 30 mg PO DAILY Qty: 90 0RF ranolazine 500 mg Tablet Extended Release 12 Hr 500 mg PO BID Qty: 180 0RF Continued clopidogrel 75 mg tablet 75 mg PO QAM furosemide 20 mg tablet 20 mg PO QAM spironolactone 25 mg tablet 12.5 mg PO QAM carvedilol 25 mg tablet See Rx Instructions .ROUTE .COMPLEX Rx Instructions: 25mg in the am and 12.5mg po pm omeprazole 20 mg capsule,delayed release(DR/EC) 20 mg PO BID tramadol 50 mg tablet 100 mg PO TID PRN (Reason: Pain) acetaminophen [Tylenol Extra Strength] 500 mg tablet 1,000 mg PO TID PRN (Reason: Pain) Rx Instructions: takes with tramadol aspirin 81 mg tablet,chewable 81 mg PO BEDTIME cholecalciferol (vitamin D3) 2,000 unit tablet 2,000 unit PO QAM potassium chloride 20 mEq tablet extended release 20 meq PO QAM enalapril maleate 5 mg tablet 5 mg PO BID simvastatin 20 mg tablet 20 mg PO BEDTIME glyburide 1.25 mg tablet 1.25 mg PO QAM escitalopram oxalate 10 mg tablet 10 mg PO QAM Centrum Silver Men 300-600-300 mcg Tablet 1 tab PO QAM metformin 500 mg tablet extended release 24 hr 1,000 mg PO BID Hold Instructions: Resume on 04/22/22. zinc 50 mg Tablet 50 mg PO QAM ascorbic acid (vitamin C) [Vitamin C] 1,000 mg Tablet 1,000 mg PO QAM cyanocobalamin (vitamin B-12) [Vitamin B-12] 1,000 mcg Tablet 1,000 mcg PO QAM nitroglycerin [Nitrostat] 0.4 mg Tablet, Sublingual 0.4 mg SUBLINGUAL Q5M PRN (Reason: Chest Pain) Rx Instructions: do not exceed 3 doses per episode Discontinued sildenafil 25 mg tablet 25 mg PO PRN Qty: 30 3RF Rx Instructions: take 30min prior to sexual activity, limit of one tab per 36hour peroid Discharge Orders: Discharge Order (Routine); Ordered 04/27/22 Ordered By: Satinder Chapa Referrals: Nancy Baltazar FNP [Nurse Practitioner] - 05/04/22 9:15 am Teodoro Jon DO [Primary Care Provider] - 05/04/22 2:45 pm Patient Instructions: Angina, Isosorbide Mononitrate (By mouth) (Imdur, Imdur ER, Ismo), Ranolazine (By mouth), Chest Pain (ED), Chest Pain Stoplight Activity Restrictions/Additional Instructions: Please do not take sildenafil/Viagra while you are taking nitrates like isosorbide mononitrate (Imdur), or nitroglycerin due to risk of severe interaction, including blindness. In case of any persistent or worsening chest pain return to the hospital. Discharge Attestations Time Spent in Discharge Care*: greater than 30 min Quality Metrics Clinical Quality Measures [ No reported AMI, CVA or VTE this stay] Coding Level of Care Code Acute Chg FW DC note Diagnoses Unstable angina I20.0 Atherosclerosis of coronary artery of [place] heart without angina pectoris I25.10 S/P CABG x 3 Z95.1 Systolic congestive heart failure I50.20 CAD (coronary artery disease) I25.118 Coronary Disease-Associated Artery/Lesion type: [place] artery [place] vs. transplanted heart: [place] heart Associated angina: with stable angina Hyperlipidemia E78.49 Hyperlipidemia type: other hyperlipidemia Hypertension I10 Hypertension type: essential hypertension Type 2 diabetes mellitus, without long-term current use of insulin E11.9
== END 2022-04-27 11:08 | disposition home or self-care (01) | DRG 303 ==
LOC: ER 23:51 → ER IP 04-26 08:29 → MEDSURG 04-26 17:32
PROVIDERS: Admitting Provider Family Medicine; Emergency Provider Emergency Medicine; PCP Family Medicine; Visit Provider Internal Medicine
DX: I25.110 Atherosclerotic heart disease of native coronary artery with unstable angina pectoris (principal); I50.22 Chronic systolic (congestive) heart failure; I48.91 Unspecified atrial fibrillation; Z95.5 Presence of coronary angioplasty implant and graft; Z95.1 Presence of aortocoronary bypass graft; E66.9 Obesity, unspecified; Z68.35 Body mass index [BMI] 35.0-35.9, adult; F41.9 Anxiety disorder, unspecified; K21.9 Gastro-esophageal reflux disease without esophagitis; E78.5 Hyperlipidemia, unspecified; I11.0 Hypertensive heart disease with heart failure; I25.5 Ischemic cardiomyopathy; E11.51 Type 2 diabetes mellitus with diabetic peripheral angiopathy without gangrene; Z87.891 Personal history of nicotine dependence; Z79.02 Long term (current) use of antithrombotics/antiplatelets; Z79.82 Long term (current) use of aspirin; Z79.84 Long term (current) use of oral hypoglycemic drugs
CPT/HCPCS: 36415; 36416; 71045; 80048; 82962; 83880; 84484; 85025; 93005; 93308; 96365; 96372; 96375; 96376; 99291; C8924; C9113; G0378; J1650; J1815; J1940; J2270; J2405; J3490; Q9956

== ENCOUNTER → 2022-05-05 14:20 | Outpatient (BNVA) | payer MEDICARE, SELFPAY | PROVIDERS: PCP Family Medicine; Visit Provider Nurse Practitioner Family | DX: I48.91 Unspecified atrial fibrillation (principal); I25.10 Atherosclerotic heart disease of native coronary artery without angina pectoris; I11.0 Hypertensive heart disease with heart failure; I50.20 Unspecified systolic (congestive) heart failure; Z87.891 Personal history of nicotine dependence | CPT/HCPCS: 93005; 99214 ==

== ENCOUNTER → 2022-05-26 09:05 | Outpatient (BNVA) | payer MEDICARE, SELFPAY | PROVIDERS: PCP Family Medicine; Visit Provider Nurse Practitioner Family | DX: I48.91 Unspecified atrial fibrillation (principal); Z79.01 Long term (current) use of anticoagulants; R94.31 Abnormal electrocardiogram [ECG] [EKG] | CPT/HCPCS: 93005; 99213; 99214 ==

== ENCOUNTER → 2022-06-02 14:06 | Outpatient (BNVA) | payer MEDICARE, SELFPAY | PROVIDERS: PCP Family Medicine; Visit Provider Internal Medicine | DX: I48.91 Unspecified atrial fibrillation (principal); R07.9 Chest pain, unspecified; R94.31 Abnormal electrocardiogram [ECG] [EKG] | CPT/HCPCS: 93005 ==

== ENCOUNTER 2022-08-17 12:36 | Outpatient (CLI) | payer MEDICARE, SELFPAY ==
--- NOTE | 2022-08-17 13:23 | XR_ITS ---
WS: [id number] Chest 2 views, 08/17/2022 Clinical Data: productive cough Comparison: Portable chest, 04/25/2022 Findings: No nodules, masses or effusions are seen. The heart is slightly enlarged. The pulmonary vas cularity is not increased. No pneumonia or pneumothorax is seen. There are midline sternotomy sutures . The aortic arch shows calcification. XR/XR chest 2V* [id number] Impression: Atherosclerosis and cardiomegaly.
== END 2022-08-17 12:37 | disposition home or self-care (01) ==
LOC: RAD 12:40
PROVIDERS: PCP Family Medicine; Visit Provider Family Medicine
DX: R05.8 Other specified cough (principal); I70.90 Unspecified atherosclerosis; I51.7 Cardiomegaly
CPT/HCPCS: 71046

== ENCOUNTER 2022-08-18 02:16 | Emergency (ER) | payer MEDICARE, SELFPAY ==
[2022-08-18] VITALS (8 sets, daily range): BP systolic 117–154; BP diastolic 67–81; PULSE 60–73; RESP 16–20; TEMP 36.7; O2SAT 90–94; BMI 35.1
--- NOTE | 2022-08-18 02:17 | XRR_ITS ---
PROCEDURE INFORMATION: Exam: XR Chest Exam date and time: 08/18/2022 2:20 AM Age: 66 years old Clinical indication: Chest pressure; Prior surgery; Surgery type: Cabg. Gb; Patient HX: C/O chest pain; Additional info: Cp TECHNIQUE: Imaging protocol: Radiologic exam of the chest. Views: 1 view. COMPARISON: CR XR chest 2V* [id number] 08/17/2022 1:24 PM FINDINGS: Lungs: Low lung volumes. Questionable ground-glass densities in the lungs. Pleural spaces: No pneumothorax. No large pleural effusion. Heart/Mediastinum: Postsurgical changes in the mediastinum identified. Cardiac silhouette is enlarged. Bones/joints: Median sternotomy wires noted. XR/XR chest 1V portable [id number] IMPRESSION: Cardiomegaly with signs concerning for questionable pulmonary edema.
--- NOTE | 2022-08-18 02:25 | ECG_ITS ---
[facility] Test Date: 2022-08-18 Pat Name: Dwayne Salinas Department: Room: Gender: Male Systems Development Consultant: : 1955 Requested By: Meaghan Hendrix Order Number: [id number] [place] MD: Patrick Moody M.D. Measurements Intervals [place] Rate: 77 P: 0 CA: 0 QRS: 66 QRSD: 91 T: -87 QT: 393 QTc: 447 Interpretive Statements ATRIAL FIBRILLATION WITH ABERRANT CONDUCTION OR VENTRICULAR PREMATURE COMPLEXES ST DEVIATION AND MODERATE T-WAVE ABNORMALITY, CONSIDER INFERIOR ISCHEMIA [-0.1+ mV T-WAVE IN II/aVF] Compared to ECG 04/25/2022 19:39:42 Ventricular premature complex(es) now present Aberrant conduction of supraventricular beat(s) now present T-wave abnormality now present Possible ischemia now present Myocardial infarct finding no longer present Electronically Signed On 08-18-2022 8:52:40 OPHTHALMOLOGY ASSISTANT by Patrick Moody M.D. [email or web address]
--- NOTE | 2022-08-18 02:25 | ED_ITS ---
HPI - Chest Pain General: Chief Complaint: Chest Pain Stated Complaint: Chest Pains Time Seen by Provider: 08/18/22 02:18 Source: patient Mode of arrival: ambulatory Limitations: no limitations History of Present Illness: 66-year-old male has extensive cardiac history states that he started having sharp chest pain in the center of his chest at 1 AM he states its been constant he rates his pain a 9 out of 10 currently has some slight radiation to his left shoulder he states he is also had a cough for the last 2 days denies any worsening pain with the cough. Denies any fevers he denies any vomiting or diarrhea he has had no diaphoresis. Associated symptoms: Deny abdominal pain, fever(s), nausea or vomiting Review of Systems Const: Denies: fever(s), chills, body aches or change in appetite Eyes: Denies: blurry vision or eye discomfort ENMT: Denies: throat pain or dental pain Card: Reports: chest pain Resp: Reports: non-productive cough GI: Denies: abdominal pain, nausea, vomiting or diarrhea : Denies: dysuria Musc: Denies: neck pain or back pain Skin/Breast: Denies: rash Neuro: Denies: headache(s) Psych: Denies: depression Marcus/Lymph: Denies: easy bruising All/Imm: Denies: urticaria PFSH ED PFSH: Medical History Adult-onset obesity Anxiety Atrial fibrillation with controlled ventricular rate CAD (coronary artery disease) Followed by Dr. Morrison, history of stenting and CABG GERD (gastroesophageal reflux disease) Hyperlipidemia Hypertension Ischemic cardiomyopathy PAD (peripheral artery disease) Systolic congestive heart failure last echo 10/2017- LVEF 40%, normal diastolic function, trace MR. Type 2 diabetes mellitus, without long-term current use of insulin Surgical History Coronary angioplasty status 04/25/15: balloon angioplasty to PDA and PLB, GOMEZ to LAD patent, SVG to OM 1 patent, SVG to PDA patent. Prox RCA 60% stenosis. History of cardiac radiofrequency ablation History of carpal tunnel release History of cholecystectomy History of femoropopliteal bypass Left common femoral artery bypass surgery performed by Dr. Carrillo on 12/15/2014 History of surgery on extremity 12/28/2014: Right groin and femoral artery exploration and primary repair of right femoral artery catheterization site History of umbilical hernia repair S/P CABG x 3 GOMEZ to LAD, SVG to OM1, SVG to PDA Family History Brother CAD (coronary artery disease) Diabetes Hyperlipidemia Hypertension Mother CAD (coronary artery disease) Cancer Diabetes Hyperlipidemia Hypertension Grandfather Cancer Father Diabetes Hyperlipidemia Hypertension Denies family history of Clotting disorder Dementia Psychiatric illness Chronic kidney disease (CKD) Suicide Anesthesia complication Bleeding disorder Family history of premature coronary artery disease Lung disease Stroke Social History Smoking and tobacco status: former smoker (10/1994) Alcohol intake: never Physical Exam Const: COMMON NORMALS: no acute distress, patient oriented x3 and healthy appearing HENMT: COMMON NORMALS: normocephalic and atraumatic HEAD & SCALP: normoce phalic and atraumatic Eye: COMMON NORMALS: Equal, round and reactive pupils present and EOMs intact bilaterally PUPIL: Yes Equal, round and reactive pupils present Neck/C-Spine: COMMON NORMALS: full ROM and supple Chest: COMMONS NORMALS: normal inspection of the chest and normal palpation of entire chest wall Resp: COMMON NORMALS: normal respiratory effort, No retractions, No use of accessory muscles and clear to auscultation bilaterally AUSCULTATION: clear to auscultation bilaterally Cardio: COMMON NORMALS: regular rate, regular rhythm and No murmurs present (Cardio) RATE: regular rate RHYTHM: regular rhythm GI: COMMON NORMALS: Normal to inspection, nondistended, normoactive bowel sounds present, Soft to palpation, non-tender and no masses PALPATION: Yes Soft to palpation Extremity: COMMON NORMALS: normal to inspection and full ROM Neuro: COMMON NORMALS: patient oriented x3, moves all extremities and no focal motor deficits Psych: COMMON NORMALS: mental status grossly normal, Normal thought process present and cooperative THOUGHT PROCESS: Normal thought process present Skin: COMMON NORMALS: no rashes or lesions noted and no wounds GENERAL SKIN EXAM: no rashes or lesions noted Course Vital Signs: Vital signs: Vital Signs Temperature 98.1 F 08/18/22 02:22 Pulse Rate 62 08/18/22 05:00 Respiratory Rate 16 08/18/22 05:00 Blood Pressure 140/69 08/18/22 05:00 Pulse Oximetry 92 08/18/22 05:00 Oxygen Delivery Me thod 08/18/22 02:22 MDM - Chest Pain Medical Decision Making Patient presents here with chest pain he has been chest pain-free here and his troponins are negative no signs of pulmonary embolism or dissection he has follow-up with his manager of finance tomorrow he is stable for discharge he is to follow-up as scheduled return if worsening he understands agrees to plan. Lab Data 08/18/22 02:33 08/18/22 02:33 Radiology Impressions Chest X-Ray 08/18/22 02:17 IMPRESSION: Cardiomegaly with signs concerning for questionable pulmonary edema. Laboratory Results WBC 7.3 10^3/uL (4.0-10.0) 08/18/22 02:33 RBC 4.36 10^6/uL (4.1-5.3) 08/18/22 02:33 Hgb 11.8 g/dL (11.7-16.6) 08/18/22 02:33 Hct 38.2 % (42.0-52.0) L 08/18/22 02:33 MCV 87.6 fl (80-94) 08/18/22 02:33 MCH 27.1 pg (28.0-34.0) L 08/18/22 02:33 MCHC 30.9 g/dL (30.0-36.0) 08/18/22 02:33 RDW 14.4 % (12.1-15.1) 08/18/22 02:33 Plt Count 271 10^3/cmm (130-400) 08/18/22 02:33 MPV 9.3 fL (7.4-10.4) 08/18/22 02:33 Neut % (Auto) 50.3 % 08/18/22 02:33 Lymph % (Auto) 23.2 % 08/18/22 02:33 [place] % (Auto) 15.8 % 08/18/22 02:33 Eos % (Auto) 9.0 % 08/18/22 02:33 Baso % (Auto) 1.2 % 08/18/22 02:33 Neut # (Auto) 3.68 10^3/uL (1.8-7.7) 08/18/22 02:33 Lymph # (Auto) 1.7 10^3/uL (0.8-4.8) 08/18/22 02:33 [place] # (Auto) 1.2 10^3/uL (0.2-0.9) H 08/18/22 02:33 Eos # (Auto) 0.7 10^3/uL (0.0-0.8) 08/18/22 02:33 Baso # (Auto) 0.1 10^3/uL (0.0-0.1) 08/18/22 02:33 Nucleated RBC % (auto) 0 % 08/18/22 02:33 Nucleated RBCs # 0.0 /100WBC 08/18/22 02:33 PT 15.20 SECONDS (12.1-14.9) H 08/18/22 02:33 INR 1.17 (0.8-1.2) 08/18/22 02:33 Sodium 137 mmol/L (136-145) 08/18/22 02:33 Potassium 4.2 mmol/L (3.5-5.1) 08/18/22 02:33 Chloride 99 mmol/L (98-107) 08/18/22 02:33 Carbon Dioxide 24 mmol/L (22-29) 08/18/22 02:33 Anion Gap 18.2 (5-19) 08/18/22 02:33 BUN 11 mg/dL (8-23) 08/18/22 02:33 Creatinine 0.9 mg/dL (0.7-1.2) 08/18/22 02:33 GFR Calculation 84.4 mL/min (90-130) L 08/18/22 02:33 Glucose 114 mg/dL (65-115) 08/18/22 02:33 Calculated Osmolality 284 mOsm/kg (285-295) L 08/18/22 02:33 Calcium 8.9 mg/dL (8.5-10.5) 08/18/22 02:33 Total Bilirubin 0.3 mg/dL (0.15-1.2) 08/18/22 02:33 AST 18 U/L (0-40) 08/18/22 02:33 ALT 17 U/L (0-41) 08/18/22 02:33 Alkaline Phosphatase 116 U/L (40-130) 08/18/22 02:33 Troponin T Baseline 19 ng/L (0-15) H 08/18/22 02:33 Troponin T 120 Minute 17.95 ng/L (0-15) H 08/18/22 04:17 Delta Troponin T -1.05 ABS# (0-10) L 08/18/22 04:17 NT-Pro-B Natriuret Pep 912 pg/mL (0-125) H 08/18/22 04:17 Total Protein 7.0 g/dL (6.6-8.7) 08/18/22 02:33 Albumin 4.2 g/dL (3.5-5.2) 08/18/22 02:33 Globulin 2.8 g/dL (1.3-4.6) 08/18/22 02:33 EKG Data EKG 1: I personally reviewed and interpreted this EKG as follows: EKG interpretation date: 08/18/22 EKG interpretation time: 02:25 Interpretation: afib hr [address] or t wave abnormalities qrs 91 qtc 425 Discharge Plan Discharge Patient Disposition: Home Clinical Impression: Chest pain Condition: Stable Prescriptions: No Action clopidogrel 75 mg tablet 75 mg PO QAM furosemide 20 mg tablet 20 mg PO QAM omeprazole 20 mg capsule,delayed release(DR/EC) 20 mg PO BID acetaminophen [Tylenol Extra Strength] 500 mg tablet 1,000 mg PO TID PRN (Reason: Pain) Rx Instructions: takes with tramadol cholecalciferol (vitamin D3) 2,000 unit tablet 2,000 unit PO QAM potassium chloride 20 mEq tablet extended release 20 meq PO QAM simvastatin 20 mg tablet 20 mg PO BEDTIME sildenafil (pulm.hypertension) 20 mg tablet 20 mg PO Eliquis 5 mg tablet 5 mg PO BID Qty: 180 3RF glyburide 1.25 mg tablet 1.25 mg PO QAM enalapril maleate 5 mg tablet 5 mg PO BID Qty: 180 3RF amiodarone 200 mg tablet See Rx Instructions PO DAILY Qty: 240 2RF Rx Instructions: 400mg twice a day for 7 days, then 400mg daily for 7 days, then 200mg daily orally daily; spironolactone 25 mg tablet 12.5 mg PO QAM Qty: 45 3RF escitalopram oxalate 10 mg tablet 10 mg PO QAM Qty: 90 1RF isosorbide mononitrate 30 mg tablet extended release 24 hr 30 mg PO DAILY Qty: 90 3RF metformin 500 mg tablet extended release 24 hr See Rx Instructions .ROUTE .COMPLEX Qty: 360 0RF Hold Instructions: Resume on 04/22/22. Dose Instruction: TAKE 2 TABLETS BY MOUTH TWICE DAILY Rx Instructions: TAKE 2 TABLETS BY MOUTH TWICE DAILY carvedilol 25 mg tablet See Rx Instructions .ROUTE .COMPLEX Qty: 135 3RF Rx Instructions: 25mg in the am and 12.5mg po pm tramadol 50 mg tablet 100 mg PO TID PRN (Reason: Pain) Qty: 90 5RF Centrum Silver Men 300-600-300 mcg Tablet 1 tab PO QAM zinc 50 mg Tablet 50 mg PO QAM ascorbic acid (vitamin C) [Vitamin C] 1,000 mg Tablet 1,000 mg PO QAM cyanocobalamin (vitamin B-12) [Vitamin B-12] 1,000 mcg Tablet 1,000 mcg PO QAM nitroglycerin [Nitrostat] 0.4 mg Tablet, Sublingual 0.4 mg SUBLINGUAL Q5M PRN (Reason: Chest Pain) Rx Instructions: do not exceed 3 doses per episode ranolazine 500 mg Tablet Extended Release 12 Hr 500 mg PO BID Qty: 180 0RF Discharge Orders: Discharge ED (Routine); Ordered 08/18/22 Ordered By: Meaghan Hendrix Referrals: Teodoro Jon DO [Primary Care Provider] - Discharge Diet: Advance as tolerated Discharge Activity: Resume usual activity Patient Instructions: Chest Pain (ED) Coding Level of Care Code ED Small Boat Engineer for Taniya Fwd Exam Comprehensive
[2022-08-18] MEDS: aspirin 81 mg Chew Tablet 324 MG PO (02:30)
[2022-08-18] MEDS: nitroglycerin 0.4 mg sublingual Tablet SUBLINGUAL ×3 (02:34→02:49)
[2022-08-18] MEDS: aspirin 81 mg Chew Tablet (02:39)
[2022-08-18 02:40] LABS: Basophils # 0.1 10^3/uL (0.0-0.1); Basophils % 1.2 %; Eosinophils # 0.7 10^3/uL (0.0-0.8); Hematocrit 38.2 % (42.0-52.0); Hemoglobin 11.8 g/dL (11.7-16.6); Lymphocytes # 1.7 10^3/uL (0.8-4.8); Lymphocytes % 23.2 %; Mean Corpuscular HGB Conc 30.9 g/dL (30.0-36.0); Mean Corpuscular Hemoglobin 27.1 pg (28.0-34.0); Mean Corpuscular Volume 87.6 fl (80-94); Mean Platelet Volume 9.3 fL (7.4-10.4); Monocytes # 1.2 10^3/uL (0.2-0.9); Monocytes % 15.8 %; Neutrophils # 3.68 10^3/uL (1.8-7.7); Neutrophils % 50.3 %; Nucleated Red Blood Cells % 0 %; Platelet Count 271 10^3/cmm (130-400); Red Blood Count 4.36 10^6/uL (4.1-5.3); Red Cell Distribution Width 14.4 % (12.1-15.1); White Blood Count 7.3 10^3/uL (4.0-10.0)
[2022-08-18 02:59] LABS: INR 1.17 (0.8-1.2)
[2022-08-18 03:06] LABS: Alanine Aminotransferase 17 U/L (0-41); Albumin Level 4.2 g/dL (3.5-5.2); Alkaline Phosphatase 116 U/L (40-130); Anion Gap 18.2 (5-19); Aspartate Amino Transferase 18 U/L (0-40); Blood Urea Nitrogen 11 mg/dL (8-23); Calcium 8.9 mg/dL (8.5-10.5); Carbon Dioxide 24 mmol/L (22-29); Chloride 99 mmol/L (98-107); Globulin 2.8 g/dL (1.3-4.6); Glomerular Filtration Rate 84.4 mL/min (90-130); Glucose 114 mg/dL (65-115); Osmolality Calculated 284 mOsm/kg (285-295); Potassium 4.2 mmol/L (3.5-5.1); Sodium 137 mmol/L (136-145); Total Bilirubin 0.3 mg/dL (0.15-1.2)
[2022-08-18 03:07] LABS: Troponin(5th) Baseline 19 ng/L (0-15)
[2022-08-18] MEDS: ondansetron 2 mg/ML SDV 2 mL 4 MG IVP (03:17)
[2022-08-18] MEDS: morphine 4 mg/mL SDV 1 mL IVP (03:17)
--- NOTE | 2022-08-18 04:17 | ECG_ITS ---
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 Measurements Intervals [place] Rate: 69 P: 0 [place]: 0 QRS: 57 QRSD: 121 T: 244 QT: 402 QTc: 431 Interpretive Statements ATRIAL FIBRILLATION WITH ABERRANT CONDUCTION OR VENTRICULAR PREMATURE COMPLEXES MODERATE INTRAVENTRICULAR CONDUCTION DELAY [105+ ms QRS DURATION, 80+ ms Q/S IN V1/V2, NO Q AND 60+ ms R IN I/aVL/V5/V6] ST DEVIATION AND MODERATE T-WAVE ABNORMALITY, CONSIDER INFERIOR ISCHEMIA [-0.1+ mV T-WAVE IN II/aVF] Compared to ECG 08/18/2022 02:25:27 Intraventricular conduction delay now present T-wave abnormality still present Possible ischemia still present Electronically Signed On 08-18-2022 8:56:38 INCOME TAX PREPARER by Patrick Moody M.D. [id number]
[2022-08-18 04:44] LABS: Troponin 5 2HR 17.95 ng/L (0-15)
[2022-08-18 04:56] LABS: Troponin 5 2HR Delta -1.05 ABS# (0-10)
[2022-08-18] MEDS: HYDROmorphone 1 mg/mL INJ 1 mL IVP (05:02)
[2022-08-18] MEDS: FUROsemide 10 mg/mL SDV 4mL 40 MG IVP (05:03)
[2022-08-18 05:08] LABS: NT Pro B Type Natriuretic Pept 912 pg/mL (0-125)
== END 2022-08-18 05:43 | disposition home or self-care (01) ==
PROVIDERS: Emergency Provider Emergency Medicine; PCP Family Medicine
DX: R07.9 Chest pain, unspecified (principal); Z79.02 Long term (current) use of antithrombotics/antiplatelets; Z79.01 Long term (current) use of anticoagulants; Z79.84 Long term (current) use of oral hypoglycemic drugs; Z87.891 Personal history of nicotine dependence; I25.10 Atherosclerotic heart disease of native coronary artery without angina pectoris; E78.5 Hyperlipidemia, unspecified; E11.9 Type 2 diabetes mellitus without complications; I11.0 Hypertensive heart disease with heart failure; I50.20 Unspecified systolic (congestive) heart failure; Z98.61 Coronary angioplasty status; Z95.1 Presence of aortocoronary bypass graft
CPT/HCPCS: 36415; 71045; 80053; 83880; 84484; 85025; 85610; 93005; 96374; 96375; 99285; J1170; J1940; J2270; J2405

== ENCOUNTER → 2022-08-19 10:42 | Outpatient (BNVA) | payer MEDICARE, SELFPAY | PROVIDERS: PCP Family Medicine; Visit Provider Internal Medicine Cardiovascular Disease | DX: R07.9 Chest pain, unspecified (principal); E11.9 Type 2 diabetes mellitus without complications; Z79.84 Long term (current) use of oral hypoglycemic drugs; I48.91 Unspecified atrial fibrillation; Z79.01 Long term (current) use of anticoagulants; I65.29 Occlusion and stenosis of unspecified carotid artery; Z95.1 Presence of aortocoronary bypass graft; I11.0 Hypertensive heart disease with heart failure; I50.20 Unspecified systolic (congestive) heart failure; I73.9 Peripheral vascular disease, unspecified; E78.49 Other hyperlipidemia; I25.118 Atherosclerotic heart disease of native coronary artery with other forms of angina pectoris; Z87.891 Personal history of nicotine dependence | CPT/HCPCS: 99215 ==

== ENCOUNTER 2022-08-22 06:49 | Outpatient (CLI) | payer MEDICARE, SELFPAY ==
--- NOTE | 2022-08-22 07:00 | CTR_ITS ---
PROCEDURE INFORMATION: Exam: CT Chest Without Contrast; Diagnostic Exam date and time: 08/22/2022 6:57 AM Age: 66 years old Clinical indication: Cough and shortness of breath; Prior surgery; Surgery type: Bypass, 6 stents; Patient HX: SOB, productive cough with light brown colored phlegm x 6 weeks TECHNIQUE: Imaging protocol: Diagnostic computed tomography of the chest without contrast. Radiation optimization: All CT scans at this facility use at least one of these dose optimization techniques: automated exposure control; mA and/or kV adjustment per patient size (includes targeted exams where dose is matched to clinical indication); or iterative reconstruction. COMPARISON: 1. CTA CHEST 07/12/2017 6:05 PM 2. XR CHEST 08/18/2022 2:20 AM RADIATION DOSE METRICS: Total DLP (mGy-cm): 740.25 FINDINGS: Lungs: No focal lung consolidation. Subsegmental ground-glass opacities in both lungs with a basilar predominance. This could be due to pneumonitis or edema. Prior bilateral pulmonary granulomatous disease. Pleural spaces: No pleural effusion or pneumothorax. Heart: The heart does not appear to be enlarged on this exam. No pericardial effusion. Coronary arteries: Calcified coronary artery atherosclerotic plaque visualized. Prior CABG. Lymph nodes: Calcified bilateral hilar as well as subcarinal lymph nodes from prior granulomatous disease. Non-pathologically enlarged noncalcified mediastinal lymph nodes. Vasculature: The thoracic aorta is atherosclerotic. No thoracic aortic aneurysm or displaced intimal calcifications. Spleen: Multiple calcified granulomas in the spleen. Bones/joints: Healed prior median sternotomy. Thoracic spondylosis. Soft tissues: No acute soft tissue abnormality. CT/CT chest [facility] [id number] IMPRESSION: Bilateral pulmonary opacities which could be due to a pneumonitis or edema. No focal lung consolidation however.
== END 2022-08-22 06:50 | disposition home or self-care (01) ==
LOC: RAD 06:51
PROVIDERS: PCP Family Medicine; Visit Provider Family Medicine
DX: R05.8 Other specified cough (principal); R07.9 Chest pain, unspecified
CPT/HCPCS: 71250

== ENCOUNTER 2022-08-24 06:04 | Outpatient (CLI) | payer MEDICARE, SELFPAY ==
[2022-08-24] VITALS (15 sets, daily range): BP systolic 100–136; BP diastolic 55–77; PULSE 60–73; RESP 15–24; TEMP 36.8; O2SAT 91–98; BMI 36.2
--- NOTE | 2022-08-24 06:33 | XACV_ITS ---
Exam Room: 2 Ht: 180 cm Wt: 118 kg BSA: 2.47 m2 Gender: Male : 1955 Any Known Allergies: Other Exam Priority: Routine Procedure(s): Procedure Description: Diagnostic procedure Procedure Description: Venous Graft Catheterization Procedure Description: GOMEZ Graft Catheterization Procedure Description: Coronary Angiography Nadine VILLARREAL; Diagnostic Cath Status: Elective Diagnostic Findings * Dwayne has longstanding coronary disease with multiple stents. Also three-vessel bypass surgery. He is in the hospital emergency room frequently and also admitted to the hospital frequently with chest pain. This is chronic and has been going on for a decade or more. He was in the hospital 3 months ago. He underwent coronary angiography and 2 stents were placed in his [place] LAD. At that time his grafts were open. Since then he has been back in the hospital once and just 2 days ago was in the emergency room again. They scheduled him an emergency appointment in my office yesterday. He is emotionally and physically crippled by this discomfort. I told him the only thing we could do was to repeat his angiogram though the likelihood of us finding anything significant would be low. * Coronary angiography reveals right coronary artery dominance. The left main coronary artery contains mild diffuse disease. The LAD is occluded in the midportion. The proximal and mid LAD are stented. There is a 60 to 70% stenosis of the LAD at the takeoff of one of the diagonal branches. The diagonal branch is patent. The stenosis was noted at his last angiogram. The internal mammary artery graft fills the distal LAD. There are multiple areas of diffuse in-stent restenosis in the LAD which have been present for quite some time. Circumflex is a small vessel and contains diffuse luminal irregularities. A branch of the first marginal is occluded. This branch is bypassed. The remainder of the circumflex contains mild to moderate diffuse luminal irregularities. The right coronary artery is the dominant vessel and ends distally as the posterior descending artery and several small posterior left ventricular branches. The entire vessel is moderately diffusely diseased. There is severe diffuse disease in the distal vessels which are tiny. These are not amenable to intervention.. * The vein graft to the circumflex marginal branch is patent. There are no stenoses. The vein graft to the distal right coronary artery is small and atretic but is patent. The left internal mammary artery graft to the distal LAD is patent. Conclusions 1. Moderate diffuse three-vessel coronary artery disease with patent bypass grafts. Recommendations * Medical treatment. Interventional RX Recommendation: none Diagnostic RX Recommendation: medical therapy and/or counseling Pressures Phase:Rest AO : 112 / 66 ( 83 ) @ 7:38:00 AM Clinical Evaluation EBL: 5mL-10mL Procedural Details Procedure Consent Obtained. Admit Source: Out Patient. Pre-Procedure Time Out. Identified patient by full name and date of as verbalized by the patient/guarantor. Does the consent match the physician's order: Yes. Accurate & Complete Informed Consent: Yes. Inpatient/Outpatient History & Physical on Chart: Yes. If H&P is completed, is and addenduem needed: Yes; If yes, is the addendum complete: Yes. Visualize and Verify Site with Patient/Guarantor: N/A. The risks, benefits, and alternatives of sedation and/or procedure were discussed by physician. The patient agrees to continue. Procedure started. [facility] Clinical Fraility Score: 3: Managing Well. Meter Technician Indications: Worsening Angina. Chest Pain Symptom Assessment: Typical Angina Symptoms. Correct patient, site and procedure confirmed by cath team. Current diagnosis: Chest Pain. PERRLA. 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 Lungs clear x 5 lobes. IV Site on Arrival: 20 gauge in the left anticubital. IV Fluids: 0.9% NaCl at 75ml/hr. 0 mL infused prior to cardiac cath lab manager. Pre Procedural Pulses: bilateral dorsalis pedis was 2+. Pre Procedural Pulses: bilateral radial was 3+. Pre Procedural Pulses: bilateral posterior tibial was 3+. Oxygen started at 2liters/min via nasal canula. right groin was prepped with chloroprep then draped in the usual sterile fashion. Baseline sample Acquired. HR: 57 BPM. Physician notified. Physician arrived. Physician scrubbed in. Immediate Pre-Procedure Time Out. Correct Patient: Yes; Correct Procedure: Yes; Correct Site: Yes; Correct Patient Position: Yes; Correct Supplies: Yes; Dried Flammable Prep: Yes; Blood Products Available: N/A;. Lidocaine 1% infiltrated to the right groin. Arterial access obtained. A 6 uk[place] JL4 catheter in over wire. Multiple views taken of left coronary artery. Catheter removed over the standard wire. A 6 [place] JR4 catheter in over wire. Multiple views taken of right coronary artery. SVG's to OM visualized and patent. SVG's to PDA visualized and patent. Catheter redirected to left IM. GOMEZ to LAD visualized. Physician review of cine films. Physician scrubbed out. Post Procedure: Pulses reassessed and unchanged. PERRLA. 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 No VTE prophylaxis required. Medication's Wasted: Heparin = 1000 unit. Medication's Wasted: Other = Versed 1 mg. Medication's Wasted: Other = Fentanyl 75mcg. Total IV fluids: 40 mL. Post-op diagnosis: CAD. Complications: None. Estimated blood loss: 5mL-10mL. Responsiveness - Normal response to verbal stimuli; alert and oriented, PERRLA. Airway - Unaffected, no intervention required; spontaneous ventilation. Circulation: W/N/L, pulses unchanged. Nausea/Vomiting: N/A. A Manual Compression was successful obtaining hemostatsis at the Right Femoral artery insertion site. Procedure completed. Patient transferred by bed to CPRU. Catheter removed over the standard wire. Vital chart was stopped. Access Site Site: Right Femoral artery Sheath Size: 6 Fr Hemostasis Method: Manual Compression Hemostasis Success: Successful Procedure Medications Start: 7:23 AM Stop: 7:23 AM Medication: Versed 1 mg and Fentanyl 25 mcg Route: I.V. I, the attending physician, have reviewed and verified all procedure medications. Yes, all medications given per verbal order History/Risk Factors Hypertension: Yes Dyslipidemia: Yes Peripheral Arterial Disease (PAD): Yes Myocardial Infarction (ND): No Obesity: No Renal Disease: No Tobacco Use: Former Prior Interventions PCI: Yes CABG: Yes Valve Surgery: No Date of PCI: 04/19/2022 Report Signatures Finalized by Dr. Rayray Mccoy MD on 08/24/2022 08:18 AM
[2022-08-24 06:45] LABS: Basophils # 0.1 10^3/uL (0.0-0.1); Basophils % 1.2 %; Eosinophils # 0.5 10^3/uL (0.0-0.8); Eosinophils % 7.1 %; Hematocrit 37.8 % (42.0-52.0); Hemoglobin 11.5 g/dL (11.7-16.6); Lymphocytes # 1.3 10^3/uL (0.8-4.8); Lymphocytes % 17.8 %; Mean Corpuscular HGB Conc 30.4 g/dL (30.0-36.0); Mean Corpuscular Hemoglobin 26.6 pg (28.0-34.0); Mean Corpuscular Volume 87.5 fl (80-94); Mean Platelet Volume 9.1 fL (7.4-10.4); Monocytes % 13.9 %; Neutrophils # 4.42 10^3/uL (1.8-7.7); Neutrophils % 59.6 %; Nucleated Red Blood Cells % 0 %; Platelet Count 250 10^3/cmm (130-400); Red Blood Count 4.32 10^6/uL (4.1-5.3); White Blood Count 7.4 10^3/uL (4.0-10.0)
[2022-08-24] MEDS: diphenhydrAMINE 50 mg Capsule PO (06:45)
[2022-08-24 07:00] LABS: Anion Gap 13.7 (5-19); Blood Urea Nitrogen 15 mg/dL (8-23); Calcium 8.8 mg/dL (8.5-10.5); Carbon Dioxide 27 mmol/L (22-29); Chloride 99 mmol/L (98-107); Glucose 184 mg/dL (65-115); Osmolality Calculated 286 mOsm/kg (285-295); Potassium 4.7 mmol/L (3.5-5.1); Sodium 135 mmol/L (136-145)
--- NOTE | 2022-08-24 08:00 | P.HPUD_ITS ---
Surgery/Procedure H&P Update DATE OF PROCEDURE: August 24, 2022 DATE H&P PERFORMED: 08/19/22 H&P UPDATE INFORMATION: I have reviewed H&P completed within last 30 days and No changes to prior documentation PREOP DIAGNOSIS: Worsening angina PRIMARY INDICATION FOR PROCEDURE: chronic unrelenting CP PLANNED PROCEDURE: Operation Date: 08/24/22 07:00 Proposed Procedures p [facility] [id number],R07.9,E11.9(Left) - Rayray Mccoy MD
--- NOTE | 2022-08-24 08:05 | SUR.PHASEII ---
POST CATH NOTE Received patient from laboratory worker. Status post cardiac catheterization via the right femoral approach. Sheath removed in laboratory worker- site is free or hematoma or bleeding. Verbal post cath instructions given to patient and family which they understood. Call light in reach. Informed to call for needs. VS and assessment per flowsheet.
--- NOTE | 2022-08-24 08:10 | SUR.PHASEII ---
IV POST CATH 0.9% NS AT 100 ML/HR
[2022-08-24 09:29] LABS: Glucose Point of Care 170 mg/dL (70-110)
--- NOTE | 2022-08-24 14:07 | PM.DCS ---
Discharge Providers Date of Admission: August 24, 2022 Date of Discharge: August 24, 2022 Attending Provider at Admission: kalyan Attending Provider at Discharge: Rayray Mccoy MD Primary Care Provider: Teodoro Jon DO Diagnoses at Discharge Discharge Diagnosis (1) Anticoagulation adequate with anticoagulant therapy: Status: Acute (2) Chest pain: Status: Acute (3) Type 2 diabetes mellitus, without long-term current use of insulin: Status: Acute (4) Atrial fibrillation with controlled ventricular rate: Status: Acute (5) Atherosclerosis of coronary artery of [place] heart without angina pectoris: Status: Acute (6) Carotid stenosis: Status: Acute (7) S/P CABG x 3: Status: Acute Permanent problem details: GOMEZ to LAD, SVG to OM1, SVG to PDA (8) Systolic congestive heart failure: Status: Acute Permanent problem details: last echo 10/2017- LVEF 40%, normal diastolic function, trace MR. (9) PAD (peripheral artery disease): Status: Acute (10) Hypertension: Status: Acute Qualifiers: Hypertension type: essential hypertension Qualified Code(s): I10 - Essential (primary) hypertension (11) Hyperlipidemia: Status: Acute Qualifiers: Hyperlipidemia type: other hyperlipidemia Qualified Code(s): E78.49 - Other hyperlipidemia (12) CAD (coronary artery disease): Status: Acute Qualifiers: Coronary Disease-Associated Artery/Lesion type: [place] artery [place] vs. transplanted heart: [place] heart Associated angina: with stable angina Qualified Code(s): I25.118 - Atherosclerotic heart disease of [place] coronary artery with other forms of angina pectoris Permanent problem details: Followed by Dr. Morrison, history of stenting and CABG Reason for Visit Reason for Visit: R07.9 Brief History: Patient was admitted electively for coronary and graft angiography. He is crippled by longstanding coronary artery disease emotionally and physically. He has been in the emergency room in the hospital frequently lately as usual. I saw him in the office yesterday as an emergency add-on. He was continuing to have chest pain despite the medications. He just had an LAD stent placed 3 months ago. His bypass grafts were open. He wanted another cardiac catheterization. Hospital Course Hospital Course Angiography revealed patent grafts. His [place]'s are diffusely diseased. The circumflex is a relatively small artery but no significant stenoses other than a branch of the first marginal is closed. That vessel is bypassed. The distal LAD is occluded. That vessel is bypassed. The proximal LAD has multiple stents which are patent. There is some modest in-stent restenosis which was present before. The sheath was pulled right away. No vascular complications were noted. Patient will be sent home the same day. I have had multiple conversations with him about his being able to emotionally get a hold of his troubles dealing with the coronary artery disease. It has never been successful. Follow-up in 7 to 10 days. No lifting over 5 pounds for 2 days Physical Exam Narrative: GENERAL: Generally looks and feels well HEENT: Exam within normal limits. NECK: Supple without jugular vein distention. The carotid upstroke is normal without bruits. BACK: Exam normal. LUNGS: Clear. HEART: Regular rate and rhythm. ABDOMEN: Benign without organomegaly or tenderness. EXTREMITIES: No edema. The right groin is flat, dry without hematoma or other vascular anomaly. NEUROLOGIC: Exam normal. SKIN: Unremarkable. 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 Routine Exams 08/24/22 06:33 Completed Laboratory Results WBC 7.4 10^3/uL (4.0-10.0) 08/24/22 06:20 RBC 4.32 10^6/uL (4.1-5.3) 08/24/22 06:20 Hgb 11.5 g/dL (11.7-16.6) L 08/24/22 06:20 Hct 37.8 % (42.0-52.0) L 08/24/22 06:20 MCV 87.5 fl (80-94) 08/24/22 06:20 MCH 26.6 pg (28.0-34.0) L 08/24/22 06:20 MCHC 30.4 g/dL (30.0-36.0) 08/24/22 06:20 RDW 14.0 % (12.1-15.1) 08/24/22 06:20 Plt Count 250 10^3/cmm (130-400) 08/24/22 06:20 MPV 9.1 fL (7.4-10.4) 08/24/22 06:20 Neut % (Auto) 59.6 % 08/24/22 06:20 Lymph % (Auto) 17.8 % 08/24/22 06:20 [place] % (Auto) 13.9 % 08/24/22 06:20 Eos % (Auto) 7.1 % 08/24/22 06:20 Baso % (Auto) 1.2 % 08/24/22 06:20 Neut # (Auto) 4.42 10^3/uL (1.8-7.7) 08/24/22 06:20 Lymph # (Auto) 1.3 10^3/uL (0.8-4.8) 08/24/22 06:20 [place] # (Auto) 1.0 10^3/uL (0.2-0.9) H 08/24/22 06:20 Eos # (Auto) 0.5 10^3/uL (0.0-0.8) 08/24/22 06:20 Baso # (Auto) 0.1 10^3/uL (0.0-0.1) 08/24/22 06:20 Nucleated RBC % (auto) 0 % 08/24/22 06:20 Nucleated RBCs # 0.0 /100WBC 08/24/22 06:20 Sodium 135 mmol/L (136-145) L 08/24/22 06:20 Potassium 4.7 mmol/L (3.5-5.1) 08/24/22 06:20 Chloride 99 mmol/L (98-107) 08/24/22 06:20 Carbon Dioxide 27 mmol/L (22-29) 08/24/22 06:20 Anion Gap 13.7 (5-19) 08/24/22 06:20 BUN 15 mg/dL (8-23) 08/24/22 06:20 Creatinine 1.1 mg/dL (0.7-1.2) 08/24/22 06:20 GFR Calculation 67.0 mL/min (90-130) L 08/24/22 06:20 Glucose 184 mg/dL (65-115) H 08/24/22 06:20 POC Glucose 170 mg/dL (70-110) H 08/24/22 06:26 Calculated Osmolality 286 mOsm/kg (285-295) 08/24/22 06:20 Calcium 8.8 mg/dL (8.5-10.5) 08/24/22 06:20 Procedures Performed Coronary angiography. Graft angiography. Vitals Last Vital Signs Temp 98.3 F 08/24/22 06:00 Pulse 73 08/24/22 12:00 Resp 16 08/24/22 12:00 BP 136/65 08/24/22 12:00 Pulse Ox 93 08/24/22 12:00 O2 Del Method 08/24/22 12:00 Discharge Plan Discharge Patient Disposition: Home Prescriptions: Continued clopidogrel 75 mg tablet 75 mg PO QAM furosemide 20 mg tablet 20 mg PO QAM omeprazole 20 mg capsule,delayed release(DR/EC) 20 mg PO BID acetaminophen [Tylenol Extra Strength] 500 mg tablet 1,000 mg PO TID PRN (Reason: Pain) Rx Instructions: takes with tramadol cholecalciferol (vitamin D3) 2,000 unit tablet 2,000 unit PO QAM potassium chloride 20 mEq tablet extended release 20 meq PO QAM simvastatin 20 mg tablet 20 mg PO BEDTIME sildenafil (pulm.hypertension) [Revatio] 20 mg tablet 20 mg PO DIRECTED PRN (Reason: Erectile Dysfunction) isosorbide mononitrate 30 mg tablet extended release 24 hr 60 mg PO DAILY metformin 500 mg tablet extended release 24 hr 1,000 mg PO BID Hold Instructions: Resume on 04/22/22. Eliquis 5 mg tablet 5 mg PO BID Qty: 180 3RF glyburide 1.25 mg tablet 1.25 mg PO QAM enalapril maleate 5 mg tablet 5 mg PO BID Qty: 180 3RF spironolactone 25 mg tablet 12.5 mg PO QAM Qty: 45 3RF escitalopram oxalate 10 mg tablet 10 mg PO QAM Qty: 90 1RF carvedilol 25 mg tablet See Rx Instructions .ROUTE .COMPLEX Qty: 135 3RF Rx Instructions: 25mg in the am and 12.5mg po pm tramadol 50 mg tablet 100 mg PO TID PRN (Reason: Pain) Qty: 90 5RF Centrum Silver Men 300-600-300 mcg Tablet 1 tab PO QAM zinc 50 mg Tablet 50 mg PO QAM ascorbic acid (vitamin C) [Vitamin C] 1,000 mg Tablet 1,000 mg PO QAM cyanocobalamin (vitamin B-12) [Vitamin B-12] 1,000 mcg Tablet 1,000 mcg PO QAM nitroglycerin [Nitrostat] 0.4 mg Tablet, Sublingual 0.4 mg SUBLINGUAL Q5M PRN (Reason: Chest Pain) Rx Instructions: do not exceed 3 doses per episode Discharge Orders: Discharge Order (Routine); Ordered 08/24/22 Ordered By: Rayray Mccoy Referrals: Nancy Baltazar FNP [Nurse Practitioner] - 7-10 days (Check right groin and chemistry panel) Diet: Diabetic Activity: Increase activity as tolerated and Limit activity as instructed Activity Restrictions/Additional Instructions: No lifting over 5 pounds for 2 days Discharge Attestations Time Spent in Discharge Care*: greater than 30 min Quality Metrics Clinical Quality Measures [ No reported AMI, CVA or VTE this stay] Coding Level of Care Code Established Pt Acute Chg FW DC note Patient Type Established History Comprehensive Exam Comprehensive Diagnoses Anticoagulation adequate with anticoagulant therapy Z79.01 Chest pain R07.9 Type 2 diabetes mellitus, without long-term current use of insulin E11.9 Atrial fibrillation with controlled ventricular rate I48.91 Atherosclerosis of coronary artery of [place] heart without angina pectoris I25.10 Carotid stenosis I65.29 S/P CABG x 3 Z95.1 Systolic congestive heart failure I50.20 PAD (peripheral artery disease) I73.9 Hypertension I10 Hypertension type: essential hypertension Hyperlipidemia E78.49 Hyperlipidemia type: other hyperlipidemia CAD (coronary artery disease) I25.118 Coronary Disease-Associated Artery/Lesion type: [place] artery [place] vs. transplanted heart: [place] heart Associated angina: with stable angina
== END 2022-08-24 14:43 | disposition home or self-care (01) ==
PROVIDERS: PCP Family Medicine; Visit Provider Internal Medicine Cardiovascular Disease
DX: I25.118 Atherosclerotic heart disease of native coronary artery with other forms of angina pectoris (principal); E11.9 Type 2 diabetes mellitus without complications; Z79.84 Long term (current) use of oral hypoglycemic drugs; I48.91 Unspecified atrial fibrillation; Z95.1 Presence of aortocoronary bypass graft; Z79.01 Long term (current) use of anticoagulants; I65.29 Occlusion and stenosis of unspecified carotid artery; I73.9 Peripheral vascular disease, unspecified; I11.0 Hypertensive heart disease with heart failure; I50.20 Unspecified systolic (congestive) heart failure; E78.49 Other hyperlipidemia; E66.9 Obesity, unspecified; Z68.36 Body mass index [BMI] 36.0-36.9, adult; F41.9 Anxiety disorder, unspecified; K21.9 Gastro-esophageal reflux disease without esophagitis; E78.5 Hyperlipidemia, unspecified; Z87.891 Personal history of nicotine dependence
CPT/HCPCS: 36415; 36416; 80048; 82962; 85025; 93455; 96361; 96365; 99152; 99153; C1769; C1887; C1894; J1644; J2250; J3010; J7030; Q0163; Q9967

== ENCOUNTER → 2022-09-02 10:56 | Outpatient (BNVA) | payer MEDICARE, SELFPAY | PROVIDERS: PCP Family Medicine; Visit Provider Nurse Practitioner Family | DX: I25.10 Atherosclerotic heart disease of native coronary artery without angina pectoris (principal); I48.91 Unspecified atrial fibrillation; Z87.891 Personal history of nicotine dependence; I11.0 Hypertensive heart disease with heart failure; I50.20 Unspecified systolic (congestive) heart failure | CPT/HCPCS: 36415; 80048; 99214 ==

== ENCOUNTER → 2022-11-08 14:05 | Outpatient (BNVA) | payer MEDICARE, OTHER, SELFPAY | PROVIDERS: PCP Family Medicine; Visit Provider Internal Medicine | DX: I25.118 Atherosclerotic heart disease of native coronary artery with other forms of angina pectoris (principal); E11.9 Type 2 diabetes mellitus without complications; R07.9 Chest pain, unspecified; I48.91 Unspecified atrial fibrillation; I65.29 Occlusion and stenosis of unspecified carotid artery; Z95.1 Presence of aortocoronary bypass graft; I11.0 Hypertensive heart disease with heart failure; I50.20 Unspecified systolic (congestive) heart failure; I73.9 Peripheral vascular disease, unspecified; E78.49 Other hyperlipidemia; Z79.01 Long term (current) use of anticoagulants; Z79.84 Long term (current) use of oral hypoglycemic drugs; Z87.891 Personal history of nicotine dependence | CPT/HCPCS: 99214 ==

== ENCOUNTER 2022-11-21 16:33 | Inpatient (IN) | payer MEDICARE, OTHER, SELFPAY ==
[2022-11-21] VITALS (29 sets, daily range): BP systolic 128–149; BP diastolic 73–88; PULSE 78–108; RESP 16–42; TEMP 36.6–38.2; O2SAT 81–94; BMI 37.0
--- NOTE | 2022-11-21 17:06 | ECG_ITS ---
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 Measurements Intervals [place] Rate: 80 P: 0 MA: 0 QRS: 81 QRSD: 126 T: -55 QT: 361 QTc: 419 Interpretive Statements ATRIAL FIBRILLATION WITH ABERRANT CONDUCTION OR VENTRICULAR PREMATURE COMPLEXES MODERATE INTRAVENTRICULAR CONDUCTION DELAY [105+ ms QRS DURATION, 80+ ms Q/S IN V1/V2, NO Q AND 60+ ms R IN I/aVL/V5/V6] ST DEVIATION AND MODERATE T-WAVE ABNORMALITY, CONSIDER INFERIOR ISCHEMIA [-0.1+ mV T-WAVE IN II/aVF] INTERPRETATION BASED ON A DEFAULT AGE OF 40 YEARS Compared to ECG 08/18/2022 03:04:44 No significant changes Electronically Signed On 11-21-2022 23:43:51 CDT by Glory Simpson M.D. [email or web address] specialty hospital of greenvilleSTI [email or web address] [email or web address] [email or web address]/[id number] sruthi
--- NOTE | 2022-11-21 17:06 | XRR_ITS ---
PROCEDURE INFORMATION: Exam: XR Chest Exam date and time: 11/21/2022 5:33 PM Age: 67 years old Clinical indication: Shortness of breath; Prior surgery; Surgery date: 6+ months; Surgery type: Bypass stents; Additional info: Chest pain TECHNIQUE: Imaging protocol: Radiologic exam of the chest. Views: 1 view. COMPARISON: CT chest con [id number] 08/22/2022 6:57 AM FINDINGS: Lungs: See Heart/Mediastinum finding. Pleural spaces: Unremarkable. No pleural effusion. No pneumothorax. Heart/Mediastinum: Cardiomegaly and pulmonary vascular congestion. Bones/joints: Sternotomy wires. XR/XR chest 1V portable [id number] IMPRESSION: Cardiomegaly and pulmonary vascular congestion.
--- NOTE | 2022-11-21 17:10 | ED_ITS ---
Documented by User: Jamie Desir DO 11/22/22 05:19 HPI - Chest Pain General: Chief Complaint: Chest Pain Stated Complaint: SOB, Chest Pains, Cough Time Seen by Provider: 11/21/22 17:06 Source: patient Mode of arrival: ambulatory History of Present Illness: 67-year-old male presents emergency room complaining of mild chest discomfort cough and shortness of breath began overnight he has severe orthopnea associated with it. He has some mild chest discomfort as well. He is not ministers ran out of any of his medications fact that he said he took an extra diuretic today with no significant improvement. MD complaint: chest pain Onset (ago): minute(s) Timing of current episode: episodic Onset: during rest Pain location: left chest Pain radiation: none Severity: moderate Quality: heaviness Relieving factors: nothing Exacerbating factors: nothing Associated symptoms: Reports dyspnea and leg edema; Deny abdominal pain, diaphoresis, fever(s), nausea, palpitations, sense of impending doom, syncope or vomiting Review of Systems Const: Denies: fever(s), chills, fatigue, malaise or diaphoresis ENMT: Denies: throat pain, ear or mastoid pain, nasal discharge or nasal congestion Card: Reports: edema, swelling of feet/ankles, dyspnea on exertion and or thopnea; Denies: chest pain, palpitations, irregular heart rhythm or syncope Resp: Reports: dyspnea and non-productive cough; Denies: productive cough or wheezing GI: Denies: abdominal pain, nausea or vomiting : Denies: flank pain, dysuria, urinary frequency or urinary urgency Musc: Denies: neck pain or back pain Skin/Breast: Denies: rash or pruritus PFSH ED PFSH: Medical History (Updated 11/22/22 @ 05:19 by Jamie Desir DO) Adult-onset obesity Anticoagulation adequate with anticoagulant therapy Anxiety Atrial fibrillation with controlled ventricular rate CAD (coronary artery disease) Followed by Dr. Morrison, history of stenting and CABG GERD (gastroesophageal reflux disease) Hyperlipidemia Hypertension Ischemic cardiomyopathy PAD (peripheral artery disease) Systolic congestive heart failure last echo 10/2017- LVEF 40%, normal diastolic function, trace MR. Type 2 diabetes mellitus, without long-term current use of insulin Surgical History Coronary angioplasty status 04/25/15: balloon angioplasty to PDA and PLB, GOMEZ to LAD patent, SVG to OM 1 patent, SVG to PDA patent. Prox RCA 60% stenosis. History of cardiac radiofrequency ablation History of carpal tunnel release History of cholecystectomy History of femoropopliteal bypass Left common femoral artery bypass surgery performed by Dr. Carrillo on 12/15/2014 History of surgery on extremity 12/28/2014: Right groin and femoral artery exploration and primary repair of right femoral artery catheterization site History of umbilical hernia repair S/P CABG x 3 GOMEZ to LAD, SVG to OM1, SVG to PDA Family History Brother CAD (coronary artery disease) Diabetes Hyperlipidemia Hypertension Mother CAD (coronary artery disease) Cancer Diabetes Hyperlipidemia Hypertension Grandfather Cancer Father Diabetes Hyperlipidemia Hypertension Denies family history of Clotting disorder Dementia Psychiatric illness Chronic kidney disease (CKD) Suicide Anesthesia complication Bleeding disorder Family history of premature coronary artery disease Lung disease Stroke Social History Smoking and tobacco status: former smoker (10/1994) Alcohol intake: never Physical Exam Const: GENERAL APPEARANCE: cooperative and comfortable ORIENTATION/CONSCIOUSNESS: Yes awake, Yes oriented to person, Yes oriented to place and Yes oriented to time HENMT: COMMON NORMALS: normocephalic, atraumatic and hearing grossly normal b ilaterally HEAD & SCALP: normocephalic and atraumatic Resp: COMMON NORMALS: normal respiratory effort, No retractions and No use of accessory muscles AUSCULTATION: crackles Cardio: COMMON NORMALS: regular rate, regular rhythm and No murmurs present (Cardio) RATE: regular rate RHYTHM: regular rhythm GI: COMMON NORMALS: Soft to palpation and No hepatosplenomegaly present AUSCULTATION: Yes normoactive bowel sounds PALPATION: Yes Soft to palpation, No Tenderness to palpation present (GI), No Guarding due to palpation present (GI) and Yes No hepatosplenomegaly present Extremity: GENERAL: Yes edema Neuro: SENSORIUM/ORIENTATION: Yes oriented to person, Yes oriented to place and Yes oriented to time Skin: COMMON NORMALS: no rashes or lesions noted GENERAL SKIN EXAM: no rashes or lesions noted Course Vital Signs: Vital signs: Vital Signs Temperature 99.5 F 11/22/22 04:00 Pulse Rate 94 11/22/22 04:00 Respiratory Rate 22 H 11/22/22 04:00 Blood Pressure 131/71 11/22/22 04:00 Pulse Oximetry 90 11/22/22 04:00 Oxygen Delivery Me thod 11/21/22 23:43 Oxygen Flow Rate 3 11/21/22 23:43 MDM - Chest Pain Medical Decision Making Patient given 60 mg Lasix after initial evaluation. Care signed out to Dr. Hendrix at change of shift. See final notes for diagnosis and disposition. Patient presents for shortness of breath he does have a history of congestive heart failure he does appear to be fluid overloaded he has been given Lasix here his troponin is normal no signs of acute coronary syndrome no signs of pulmonary embolism no signs of pneumonia spoke to the hospitalist and will admit at this time. Medical Records I reviewed the patient's medical records. Lab Data I reviewed the patient's lab results. 11/21/22 17:15 11/21/22 17:15 Radiology Impressions Chest X-Ray 11/21/22 17:06 IMPRESSION: Cardiomegaly and pulmonary vascular congestion. Laboratory Results WBC 12.3 10^3/uL (4.0-10.0) H 11/21/22 17:15 RBC 4.95 10^6/uL (4.1-5.3) 11/21/22 17:15 Hgb 12.6 g/dL (11.7-16.6) 11/21/22 17:15 Hct 41.6 % (42.0-52.0) L 11/21/22 17:15 MCV 84.0 fl (80-94) 11/21/22 17:15 MCH 25.5 pg (28.0-34.0) L 11/21/22 17:15 MCHC 30.3 g/dL (30.0-36.0) 11/21/22 17:15 RDW 17.0 % (12.1-15.1) H 11/21/22 17:15 Plt Count 260 10^3/cmm (130-400) 11/21/22 17:15 MPV 9.5 fL (7.4-10.4) 11/21/22 17:15 Neut % (Auto) 77.9 % 11/21/22 17:15 Lymph % (Auto) 6.9 % 11/21/22 17:15 [place] % (Auto) 11.1 % 11/21/22 17:15 Eos % (Auto) 3.1 % 11/21/22 17:15 Baso % (Auto) 0.7 % 11/21/22 17:15 Neut # (Auto) 9.59 10^3/uL (1.8-7.7) H 11/21/22 17:15 Lymph # (Auto) 0.9 10^3/uL (0.8-4.8) 11/21/22 17:15 [place] # (Auto) 1.4 10^3/uL (0.2-0.9) H 11/21/22 17:15 Eos # (Auto) 0.4 10^3/uL (0.0-0.8) 11/21/22 17:15 Baso # (Auto) 0.1 10^3/uL (0.0-0.1) 11/21/22 17:15 Nucleated RBC % (auto) 0 % 11/21/22 17:15 Nucleated RBCs # 0.0 /100WBC 11/21/22 17:15 Sodium 133 mmol/L (136-145) L 11/21/22 17:15 Potassium 4.1 mmol/L (3.5-5.1) 11/21/22 17:15 Chloride 97 mmol/L (98-107) L 11/21/22 17:15 Carbon Dioxide 27 mmol/L (22-29) 11/21/22 17:15 Anion Gap 13.1 (5-19) 11/21/22 17:15 BUN 10 mg/dL (8-23) 11/21/22 17:15 Creatinine 1.0 mg/dL (0.7-1.2) 11/21/22 17:15 GFR Calculation 74.5 mL/min (90-130) L 11/21/22 17:15 Glucose 93 mg/dL (65-115) 11/21/22 17:15 Calculated Osmolality 275 mOsm/kg (285-295) L 11/21/22 17:15 Calcium 9.5 mg/dL (8.5-10.5) 11/21/22 17:15 Total Bilirubin 0.7 mg/dL (0.15-1.2) 11/21/22 17:15 AST 15 U/L (0-40) 11/21/22 17:15 ALT 13 U/L (0-41) 11/21/22 17:15 Alkaline Phosphatase 83 U/L (40-130) 11/21/22 17:15 Troponin T Baseline 12 ng/L (0-15) 11/21/22 17:15 Troponin T 120 Minute 11.42 ng/L (0-15) 11/21/22 19:23 Delta Troponin T -0.58 ABS# (0-10) L 11/21/22 19:23 NT-Pro-B Natriuret Pep 1108 pg/mL (0-125) H 11/21/22 17:15 Total Protein 7.6 g/dL (6.6-8.7) 11/21/22 17:15 Albumin 4.6 g/dL (3.5-5.2) 11/21/22 17:15 Globulin 3.0 g/dL (1.3-4.6) 11/21/22 17:15 Discharge Plan Discharge Patient Disposition: Admitted As Inpatient Admit Provider: Misa Bocanegra Clinical Impression: Systolic congestive heart failure, CAD (coronary artery disease), Atrial fibrillation with controlled ventricular rate, Hypertension, Anticoagulation adequate with anticoagulant therapy, Type 2 diabetes mellitus, without long-term current use of insulin Condition: Stable Coding Level of Care Code ED Emergency Medical Service Coordinator for Chg Fwd Documented by User: Meaghan Hendrix MD 11/21/22 19:14 HPI - Chest Pain General: Chief Complaint: Chest Pain Stated Complaint: SOB, Chest Pains, Cough Time Seen by Provider: 11/21/22 17:06 PFSH ED PFSH: Medical History (Updated 11/22/22 @ 05:19 by Jamie Desir DO) Adult-onset obesity Anticoagulation adequate with anticoagulant therapy Anxiety Atrial fibrillation with controlled ventricular rate CAD (coronary artery disease) Followed by Dr. Morrison, history of stenting and CABG GERD (gastroesophageal reflux disease) Hyperlipidemia Hypertension Ischemic cardiomyopathy PAD (peripheral artery disease) Systolic congestive heart failure last echo 10/2017- LVEF 40%, normal diastolic function, trace MR. Type 2 diabetes mellitus, without long-term current use of insulin Surgical History Coronary angioplasty status 04/25/15: balloon angioplasty to PDA and PLB, GMOEZ to LAD patent, SVG to OM 1 patent, SVG to PDA patent. Prox RCA 60% stenosis. History of cardiac radiofrequency ablation History of carpal tunnel release History of cholecystectomy History of femoropopliteal bypass Left common femoral artery bypass surgery performed by Dr. Carrillo on 12/15/2014 History of surgery on extremity 12/28/2014: Right groin and femoral artery exploration and primary repair of right femoral artery catheterization site History of umbilical hernia repair S/P CABG x 3 GOMEZ to LAD, SVG to OM1, SVG to PDA Family History Brother CAD (coronary artery disease) Diabetes Hyperlipidemia Hypertension Mother CAD (coronary artery disease) Cancer Diabetes Hyperlipidemia Hypertension Grandfather Cancer Father Diabetes Hyperlipidemia Hypertension Denies family history of Clotting disorder Dementia Psychiatric illness Chronic kidney disease (CKD) Suicide Anesthesia complication Bleeding disorder Family history of premature coronary artery disease Lung disease Stroke Social History Smoking and tobacco status: former smoker (10/1994) Alcohol intake: never Course Vital Signs: Vital signs: Vital Signs Temperature 99.5 F 11/22/22 04:00 Pulse Rate 94 11/22/22 04:00 Respiratory Rate 22 H 11/22/22 04:00 Blood Pressure 131/71 11/22/22 04:00 Pulse Oximetry 90 11/22/22 04:00 Oxygen Delivery Me thod 11/21/22 23:43 Oxygen Flow Rate 3 11/21/22 23:43 MDM - Chest Pain Medical Decision Making Patient presents for shortness of breath he does have a history of congestive heart failure he does appear to be fluid overloaded he has been given Lasix here his troponin is normal no signs of acute coronary syndrome no signs of pulmonary embolism no signs of pneumonia spoke to the hospitalist and will admit at this time. Lab Data 11/21/22 17:15 11/21/22 17:15 Radiology Impressions Chest X-Ray 11/21/22 17:06 IMPRESSION: Cardiomegaly and pulmonary vascular congestion. Laboratory Results WBC 12.3 10^3/uL (4.0-10.0) H 11/21/22 17:15 RBC 4.95 10^6/uL (4.1-5.3) 11/21/22 17:15 Hgb 12.6 g/dL (11.7-16.6) 11/21/22 17:15 Hct 41.6 % (42.0-52.0) L 11/21/22 17:15 MCV 84.0 fl (80-94) 11/21/22 17:15 MCH 25.5 pg (28.0-34.0) L 11/21/22 17:15 MCHC 30.3 g/dL (30.0-36.0) 11/21/22 17:15 RDW 17.0 % (12.1-15.1) H 11/21/22 17:15 Plt Count 260 10^3/cmm (130-400) 11/21/22 17:15 MPV 9.5 fL (7.4-10.4) 11/21/22 17:15 Neut % (Auto) 77.9 % 11/21/22 17:15 Lymph % (Auto) 6.9 % 11/21/22 17:15 [place] % (Auto) 11.1 % 11/21/22 17:15 Eos % (Auto) 3.1 % 11/21/22 17:15 Baso % (Auto) 0.7 % 11/21/22 17:15 Neut # (Auto) 9.59 10^3/uL (1.8-7.7) H 11/21/22 17:15 Lymph # (Auto) 0.9 10^3/uL (0.8-4.8) 11/21/22 17:15 [place] # (Auto) 1.4 10^3/uL (0.2-0.9) H 11/21/22 17:15 Eos # (Auto) 0.4 10^3/uL (0.0-0.8) 11/21/22 17:15 Baso # (Auto) 0.1 10^3/uL (0.0-0.1) 11/21/22 17:15 Nucleated RBC % (auto) 0 % 11/21/22 17:15 Nucleated RBCs # 0.0 /100WBC 11/21/22 17:15 Sodium 133 mmol/L (136-145) L 11/21/22 17:15 Potassium 4.1 mmol/L (3.5-5.1) 11/21/22 17:15 Chloride 97 mmol/L (98-107) L 11/21/22 17:15 Carbon Dioxide 27 mmol/L (22-29) 11/21/22 17:15 Anion Gap 13.1 (5-19) 11/21/22 17:15 BUN 10 mg/dL (8-23) 11/21/22 17:15 Creatinine 1.0 mg/dL (0.7-1.2) 11/21/22 17:15 GFR Calculation 74.5 mL/min (90-130) L 11/21/22 17:15 Glucose 93 mg/dL (65-115) 11/21/22 17:15 Calculated Osmolality 275 mOsm/kg (285-295) L 11/21/22 17:15 Calcium 9.5 mg/dL (8.5-10.5) 11/21/22 17:15 Total Bilirubin 0.7 mg/dL (0.15-1.2) 11/21/22 17:15 AST 15 U/L (0-40) 11/21/22 17:15 ALT 13 U/L (0-41) 11/21/22 17:15 Alkaline Phosphatase 83 U/L (40-130) 11/21/22 17:15 Troponin T Baseline 12 ng/L (0-15) 11/21/22 17:15 Troponin T 120 Minute 11.42 ng/L (0-15) 11/21/22 19:23 Delta Troponin T -0.58 ABS# (0-10) L 11/21/22 19:23 NT-Pro-B Natriuret Pep 1108 pg/mL (0-125) H 11/21/22 17:15 Total Protein 7.6 g/dL (6.6-8.7) 11/21/22 17:15 Albumin 4.6 g/dL (3.5-5.2) 11/21/22 17:15 Globulin 3.0 g/dL (1.3-4.6) 11/21/22 17:15 Discharge Plan Discharge Patient Disposition: Admitted As Inpatient Admit Provider: Misa Bocanegra Clinical Impression: Systolic congestive heart failure, CAD (coronary artery disease), Atrial fibrillation with controlled ventricular rate, Hypertension, Anticoagulation adequate with anticoagulant therapy, Type 2 diabetes mellitus, without long-term current use of insulin Condition: Stable Coding Level of Care Code ED Emergency Medical Service Coordinator for [place]
[2022-11-21 17:31] LABS: Basophils # 0.1 10^3/uL (0.0-0.1); Basophils % 0.7 %; Eosinophils # 0.4 10^3/uL (0.0-0.8); Eosinophils % 3.1 %; Hematocrit 41.6 % (42.0-52.0); Hemoglobin 12.6 g/dL (11.7-16.6); Lymphocytes # 0.9 10^3/uL (0.8-4.8); Lymphocytes % 6.9 %; Mean Corpuscular HGB Conc 30.3 g/dL (30.0-36.0); Mean Corpuscular Hemoglobin 25.5 pg (28.0-34.0); Mean Platelet Volume 9.5 fL (7.4-10.4); Monocytes # 1.4 10^3/uL (0.2-0.9); Monocytes % 11.1 %; Neutrophils # 9.59 10^3/uL (1.8-7.7); Neutrophils % 77.9 %; Nucleated Red Blood Cells % 0 %; Platelet Count 260 10^3/cmm (130-400); Red Blood Count 4.95 10^6/uL (4.1-5.3); White Blood Count 12.3 10^3/uL (4.0-10.0)
[2022-11-21] MEDS: aspirin 81 mg Chew Tablet 324 MG PO (17:34)
[2022-11-21] MEDS: FUROsemide 10 mg/mL SDV 10mL 60 MG IVP (17:34)
[2022-11-21 18:14] LABS: Troponin(5th) Baseline 12 ng/L (0-15)
[2022-11-21 18:21] LABS: Alanine Aminotransferase 13 U/L (0-41); Albumin Level 4.6 g/dL (3.5-5.2); Alkaline Phosphatase 83 U/L (40-130); Anion Gap 13.1 (5-19); Aspartate Amino Transferase 15 U/L (0-40); Blood Urea Nitrogen 10 mg/dL (8-23); Calcium 9.5 mg/dL (8.5-10.5); Carbon Dioxide 27 mmol/L (22-29); Chloride 97 mmol/L (98-107); Glomerular Filtration Rate 74.5 mL/min (90-130); Glucose 93 mg/dL (65-115); NT Pro B Type Natriuretic Pept 1108 pg/mL (0-125); Osmolality Calculated 275 mOsm/kg (285-295); Potassium 4.1 mmol/L (3.5-5.1); Sodium 133 mmol/L (136-145); Total Bilirubin 0.7 mg/dL (0.15-1.2); Total Protein 7.6 g/dL (6.6-8.7)
--- NOTE | 2022-11-21 19:06 | ECG_ITS ---
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 Measurements Intervals [place] Rate: 90 P: 0 NC: 0 QRS: 79 QRSD: 122 T: -66 QT: 344 QTc: 421 Interpretive Statements ATRIAL FIBRILLATION MODERATE INTRAVENTRICULAR CONDUCTION DELAY [110+ ms QRS DURATION] ST DEVIATION AND MODERATE T-WAVE ABNORMALITY, CONSIDER LATERAL ISCHEMIA [-0.1+ mV T-WAVE IN I/aVL/V5/V6] ST DEVIATION AND MODERATE T-WAVE ABNORMALITY, CONSIDER INFERIOR ISCHEMIA [-0.1+ mV T-WAVE IN II/aVF] Compared to ECG 11/21/2022 16:46:09 Ventricular premature complex(es) no longer present Aberrant conduction of supraventricular beat(s) no longer present T-wave abnormality still present Possible ischemia still present Electronically Signed On 11-21-2022 23:52:35 CDT by Glory Simpson M.D. [id number]
[2022-11-21 20:00] LABS: Troponin 5 2HR 11.42 ng/L (0-15)
[2022-11-21 20:08] LABS: Troponin 5 2HR Delta -0.58 ABS# (0-10)
--- NOTE | 2022-11-21 20:10 | USCV_ITS ---
Dwayne Salinas Age: 67 Gender: M : 1955 Exam Date: 11/21/2022 22:30 Ordering Phys: Misa Bocanegra MD Technologist: STEVEN Exam Location: [facility] [place] Indication: HF, s/p CABG 2006, multiple cardiac stents, 1983 balloon angioplasty. BP: 128 / 75 HR: 89 Rhythm: Atrial fibrillation Technical Quality: Adequate with [employer]ISON MEASUREMENTS (Male / Female) Normal Values 2D ECHO LV Diastolic Diameter PLAX 4.5 cm 4.2 - 5.9 / 3.9 - 5.3 cm LV Systolic Diameter PLAX 3.2 cm IVS Diastolic Thickness 1.6 cm 0.6 - 1.0 / 0.6 - 0.9 cm IVS Systolic Thickness 2.1 cm LVPW Diastolic Thickness 1.3 cm 0.6 - 1.0 / 0.6 - 0.9 cm LVPW Systolic Thickness 1.5 cm LVOT Diameter 2.2 cm LV Ejection Fraction 2D Teich 55.4 % LV Ejection Fraction MOD 2C 43.5 % LV Ejection Fraction 2C AL 43.7 % LA Diameter 5.1 cm LA Width 5.3 cm LA Height 6.1 cm RA Width 3.2 cm RA Height 5.0 cm Aorta at Sinotubular Diameter 3.4 cm IVC Diameter 2.8 cm M-MODE Aortic Annulus Diameter 3.5 cm LA Ao Ratio MM 1.4 MV E Point Septal Separation 0.6 cm DOPPLER AV Peak Velocity 119.0 cm/s LVOT Peak Velocity 102.0 cm/s AV Area Cont Eq vti 3.5 cm squared AV Area Cont Eq pk 3.3 cm squared MV Peak Velocity 145.0 cm/s MV Area PHT 4.2 cm squared MV E' Velocity 117.0 cm/s TV Peak E Velocity 62.0 cm/s PV Peak Velocity 93.0 cm/s RV Acceleration Time 0.1 s RV Ejection Time 0.3 s RV AcT/ET 0.3 FINDINGS Left Ventricle Normal left ventricular size with borderline low LV ejection fraction of 52%. because of the atrial arrhythmia segmental wall motion analysis difficult. Mild diffuse hypokinesia of the left-ventricule Right Ventricle Normal right ventricular size and systolic function. Right Atrium Mildly increased right atrial size. Left Atrium Mildly increased left atrial size. Mitral Valve Thickened mitral valve. Trace mitral valve regurgitation. Aortic Valve No gross wall motion abnormalities noted Tricuspid Valve Trace tricuspid valve regurgitation. Pulmonic Valve Pulmonic valve not well visualized. Pericardium No pericardial effusion. Aorta Normal aortic annulus size. IVC Inferior vena cava not visualized. CONCLUSIONS Normal left ventricular size with borderline low LV ejection fraction of 52%. Because of the atrial arrhythmia segmental wall motion analysis difficult. Mild diffuse hypokinesia of the left-ventricule . Moderate biatrial enlargement. Minimally thickened aortic and mitral valves. Trace of mitral and tricuspid valve regurgitation. There is no pericardial effusion. There are no intracardiac masses. Dr Glory Simpson MD FAC (Electronically Signed) Final Date: 22 November 2022 14:24 S
--- NOTE | 2022-11-21 20:22 | P.HP_ITS ---
Providers/Chief Complaint Admitting Physician: Misa Bocanegra MD Primary Care Provider: Teodoro Jon DO Chief Complaint: SOB, Chest Pains, Cough History of Present Illness Dwayne Salinas is a 67 year old male CAD s/p CABG with patent SVG to OM and RCA and GOMEZ to LAD in 2014, peripheral artery disease with left-sided bypass, diabetes and hypertension, PCI to LAD in May 2022 and another admission in August where he had an angiogram due to chest pain but did not have any sign ificant blockages to be intervened upon, recent atrial fibrillation to be going for ablation on December 14 presented to the hospital today with mild chest discomfort and shortness of breath. He states he was up in [place] yesterday and ate out at a restaurant and had pulled pork which was quite salty and by the time he got home his ankles were quite edematous. He took an extra dose of Lasix today however states did not make a difference. Chest pain feels like a pressure about 2 out of 10 in intensity located in the center of his chest which he says is better compared to when he first got to the ER. He saw supervisor electronic coils Dr. Denis recently who was planned for ablation on December 14. He saw his granite worker on 08 November. He was recently started on Entresto about a month ago and his dose has been doubled twice with most recent increase in dosage about a week ago. He had an echocardiogram done at an outside facility which apparently showed EF of 27%. Patient is currently on Eliquis and Plavix, no bleeding complications at this time. He complains of severe orthopnea. He also feels he is gurgling. He states he feels a little bit better after receiving Lasix in the ER tonight. He can finally breathe. He says in the ER he was having conversational dyspnea. Also states he has had bronchitis twice in the past few months and has completed antibiotics and a prednisone taper about a month ago. He states he feels like his sinuses are dripping again and he could possibly having a flareup of bronchitis as well. He has never been diagnosed with COPD. He quit smoking in 1984. Denies a fever at home. He does endorse a cough productive of sputum however has not looked at the color of it. Denies nausea, vomiting, abdominal pain, diarrhea, any other symptoms at this time other than what is stated above. He says he had his first heart attack when he was 27 years old and since then has been battling with cardiac disease. ED course: 148/88, 30, 82, 97.9, satting 92% on room air. WBC 12.3, sodium 133, potassium 4.1, chloride 97, creatinine 1.0, BNP 1100. Chest x-ray was obtained which showed pulmonary vascular congestion and cardiomegaly. Patient was given 60 IV Lasix x1. Initial troponin 12, 2-hour troponin 11. Third troponin is pending at this time. EKG on arrival to ER showed atrial fibrillation rate controlled, nonspecific T wave changes. Patient did have a fever of 100.8 tonight as well. Medications/Allergies Home Medications Medication Instructions Recorded Confirmed Last Taken Type acetaminophen 500 mg tablet 1,000 mg PO TID PRN Pain 09/17/19 11/21/22 Unknown History (Tylenol Extra Strength) cholecalciferol (vitamin D3) 50 2,000 unit PO QAM 09/17/19 11/21/22 11/21/22 History mcg (2,000 unit) tablet vbzvfnha-mmq-zzcur acid 300 1 tab PO QAM 09/19/19 11/21/22 11/21/22 History mcg-lycopene 600 mcg-lutein 300 mcg tablet (Centrum Silver Men) ascorbic acid (vitamin C) 1,000 mg 1,000 mg PO QAM 04/19/22 11/21/22 11/21/22 History tablet (Vitamin C) cyanocobalamin (vitamin B-12) 1,000 mcg PO QAM 04/19/22 11/21/22 11/21/22 History 1,000 mcg tablet (Vitamin B-12) nitroglycerin 0.4 mg sublingual 0.4 mg sublingual Q5M PRN Chest 04/19/22 11/21/22 04/25/22 History tablet (Nitrostat) Pain zinc 50 mg tablet 50 mg PO QAM 04/19/22 11/21/22 11/21/22 History apixaban 5 mg tablet (Eliquis) 5 mg PO BID #180 tabs 05/05/22 11/21/22 11/21/22 Rx sildenafil (pulm.hypertension) 20 20 mg PO DIRECTED PRN Erectile 05/10/22 11/21/22 Unknown History mg tablet (Revatio) Dysfunction spironolactone 25 mg tablet 12.5 mg PO QAM #45 tabs 05/24/22 11/21/22 11/21/22 Rx carvedilol 25 mg tablet See Rx Instructions .Route 08/16/22 11/21/22 11/21/22 Rx .COMPLEX #135 tabs isosorbide mononitrate 30 mg 60 mg PO DAILY 08/19/22 11/21/22 11/21/22 History tablet,extended release 24 hr metformin 500 mg tablet,extended 1,000 mg PO BID 08/19/22 11/21/22 11/21/22 History release 24 hr escitalopram oxalate 10 mg tablet 10 mg PO QAM #90 tabs 09/27/22 11/21/22 11/21/22 Rx omeprazole 20 mg capsule,delayed 20 mg PO BID #180 caps 10/12/22 11/21/22 11/21/22 Rx release simvastatin 20 mg tablet 20 mg PO BEDTIME #90 tabs 10/12/22 11/21/22 11/20/22 Rx glyburide 2.5 mg tablet 2.5 mg PO QAM 11/08/22 11/21/22 11/21/22 History sacubitril 49 mg-valsartan 51 mg 1 tab PO BID 11/08/22 11/21/22 11/21/22 History tablet (Entresto) tramadol 50 mg tablet 100 mg PO TID PRN Pain #180 tabs 11/08/22 11/21/22 Unknown Rx clopidogrel 75 mg tablet 75 mg PO QAM #30 tabs 11/10/22 11/21/22 11/21/22 Rx furosemide 20 mg tablet 20 mg PO QAM #30 tabs 11/10/22 11/21/22 11/21/22 Rx albuterol sulfate 90 mcg/actuation 2 puff inhalation QID PRN 11/21/22 11/21/22 Unknown History aerosol inhaler Shortness Of Breath Allergies Allergy/AdvReac Type Severity Reaction Status Date / Time penicillin G Allergy HIVES Verified 11/08/22 14:15 Penicillins Allergy ALGY-Hives Verified 11/08/22 14:15 propoxyphene Allergy VERY SHORT Verified 11/08/22 14:15 [From Cemt-N] OF BREATH PFSH Acute PFSH: Medical History (Updated 11/21/22 @ 23:02 by Misa Bocanegra MD) Adult-onset obesity Anticoagulation adequate with anticoagulant therapy Anxiety Atrial fibrillation with controlled ventricular rate CAD (coronary artery disease) Followed by Dr. Morrison, history of stenting and CABG GERD (gastroesophageal reflux disease) Hyperlipidemia Hypertension Ischemic cardiomyopathy PAD (peripheral artery disease) Systolic congestive heart failure last echo 10/2017- LVEF 40%, normal diastolic function, trace MR. Type 2 diabetes mellitus, without long-term current use of insulin Surgical History Coronary angioplasty status 04/25/15: balloon angioplasty to PDA and PLB, GOMEZ to LAD patent, SVG to OM 1 patent, SVG to PDA patent. Prox RCA 60% stenosis. History of cardiac radiofrequency ablation History of carpal tunnel release History of cholecystectomy History of femoropopliteal bypass Left common femoral artery bypass surgery performed by Dr. Carrillo on 12/15/2014 History of surgery on extremity 12/28/2014: Right groin and femoral artery exploration and primary repair of right femoral artery catheterization site History of umbilical hernia repair S/P CABG x 3 GOMEZ to LAD, SVG to OM1, SVG to PDA Family History Brother CAD (coronary artery disease) Diabetes Hyperlipidemia Hypertension Mother CAD (coronary artery disease) Cancer Diabetes Hyperlipidemia Hypertension Grandfather Cancer Father Diabetes Hyperlipidemia Hypertension Denies family history of Clotting disorder Dementia Psychiatric illness Chronic kidney disease (CKD) Suicide Anesthesia complication Bleeding disorder Family history of premature coronary artery disease Lung disease Stroke Social History Smoking and tobacco status: former smoker (10/1994) Alcohol intake: never Vitals/I&O/Wt Last Vital Signs Temp 97.9 F 11/21/22 16:40 Pulse 89 11/21/22 19:57 Resp 34 H 11/21/22 19:57 BP 128/75 11/21/22 19:57 Pulse Ox 90 11/21/22 19:57 O2 Del Method 11/21/22 16:40 11/21/22 11/21/22 11/21/22 06:59 14:59 22:59 Output Total 375 / 375 Balance -375 / -375 Weight last 48 hrs Weight 120.656 kg Physical Exam Narrative: General: Alert oriented x3, patient seen sitting up in bed, no acute respiratory distress, no conversational dyspnea. present at bedside. Sounds congested when talking HEENT: Normocephalic, atraumatic, EOMI, breathing room air comfortably. Cardio: Regular rate rhythm, normal S1-S2, unable to assess JVD due to body habitus Respiratory: Bilateral gross rhonchi auscultated throughout lung crawley along with mild wheezing. No crackles at bases at time of my evaluation however in ER did have crackles. GI: Abdomen soft, nontender, distended and taut, bowel sounds + Behavior: Appropriate and cooperative Extremities: 1+ edema bilateral lower extremity up to thighs Data 11/21/22 17:15 11/21/22 17:15 A&P Assessment and plan (1) GERD (gastroesophageal reflux disease): (2) Wheezing: (3) Anticoagulation adequate with anticoagulant therapy: (4) Productive cough: (5) Lower respiratory infection: (6) Chest pain: (7) Type 2 diabetes mellitus, without long-term current use of insulin: (8) Atrial fibrillation with controlled ventricular rate: (9) Atherosclerosis of coronary artery of [place] heart without angina pectoris: (10) S/P CABG x 3: (11) Systolic congestive heart failure: (12) PAD (peripheral artery disease): (13) Hypertension: Qualifiers: Hypertension type: essential hypertension Qualified Code(s): I10 - Essential (primary) hypertension (14) Hyperlipidemia: Qualifiers: Hyperlipidemia type: other hyperlipidemia Qualified Code(s): E78.49 - Other hyperlipidemia (15) CAD (coronary artery disease): Qualifiers: Coronary Disease-Associated Artery/Lesion type: [place] artery [place] vs. transplanted heart: [place] heart Associated angina: with stable angina Qualified Code(s): I25.118 - Atherosclerotic heart disease of [place] coronary artery with other forms of angina pectoris (16) Fever: Plan #Acute on chronic systolic congestive heart failure, EF 27% #Atrial fibrillation, rate controlled #Shortness of breath most likely secondary to above #On chronic anticoagulation #History of CAD status post PCI #History of CABG #Hypertension #Peripheral arterial disease #Fever of unknown origin, suspect pulmonary etiology, possible bronchiolitis? #Diabetes mellitus ? Patient presented with shortness of breath, orthopnea, cough productive of sputum. Febrile 100.8, elevated white count. Has had recent bronchitis x2 and finished a prednisone taper along with antibiotics about a month ago. Also had salty pork yesterday and developed edema and acute onset shortness of breath. Cough also started overnight. Denies a fever at home or recent illness other than the one a month ago. Will be getting ablated for A-fib on December 14. Most likely patient has CHF exacerbation with a component of a viral upper respiratory illness. ? I will cover empirically with antibiotics levofloxacin 750 daily. De-escalate as more data becomes available. Check procalcitonin ? We will place on Solu-Medrol 40 IV twice daily ? We will check respiratory viral panel ? Placed on Lasix 40 IV twice daily ? Monitor BMP daily ? DuoNeb every every 6 hours as needed. ? May placed on BiPAP if respiratory status worsens however at this point I feel he is okay on room air. ? Continue Coreg, apixaban, Plavix, Imdur, omeprazole, We will hold spironolactone and entresto at this time ? Replete electrolytes as needed ? Keep potassium above 4, magnesium above 2 ? Low-dose intensity sliding scale insulin ACHS ? Consider cardiology consultation should patient worsen ? Chest pain is a lot better than arrival to ER. We will continue to monitor. Another EKG obtained and reviewed. No acute ischemic changes noted. 6-hour troponin is pending at this time. ? Check cardiac echo -Chest x-ray was personally reviewed and shows pulmonary vascular congestion and cardiomegaly. No evidence of infiltrate at this time. ? We will check another x-ray in a.m. ? Carter catheter for accurate output ? Tylenol for fever, Zofran for nausea if needed - sputum culture gram stain, blood cultures, urinalysis ordered - check covid Full code SCDs, Eliquis should suffice for DVT prophylaxis Diet: Cardiac consistent carbohydrate diet GI prophylaxis: Not indicated Fluids: Not indicated Attestations Medical Necessity Statement*: Expected to cross greater than 2 midnight stay for management of CHF exacerbation Other Coding Information Focused coding review requested Diagnoses GERD (gastroesophageal reflux disease) K21.9 Wheezing R06.2 Anticoagulation adequate with anticoagulant therapy Z79.01 Productive cough R05.8 Lower respiratory infection J22 Chest pain R07.9 Type 2 diabetes mellitus, without long-term current use of insulin E11.9 Atrial fibrillation with controlled ventricular rate I48.91 Atherosclerosis of coronary artery of [place] heart without angina pectoris I25.10 S/P CABG x 3 Z95.1 Systolic congestive heart failure I50.20 PAD (peripheral artery disease) I73.9 Hypertension I10 Hypertension type: essential hypertension Hyperlipidemia E78.49 Hyperlipidemia type: other hyperlipidemia CAD (coronary artery disease) I25.118 Coronary Disease-Associated Artery/Lesion type: [place] artery [place] vs. transplanted heart: [place] heart Associated angina: with stable angina Fever R50.9
[2022-11-21] MEDS: FUROsemide 10 mg/mL SDV 4mL 40 MG IVP (21:21)
[2022-11-21] MEDS: atorvastatin 40 mg Tablet PO (21:21)
[2022-11-21] MEDS: carvedilol 12.5 mg Tablet PO (21:22)
--- NOTE | 2022-11-21 21:43 | ECG_ITS ---
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 Measurements Intervals [place] Rate: 86 P: 0 OK: 0 QRS: 52 QRSD: 125 T: -79 QT: 356 QTc: 427 Interpretive Statements ATRIAL FIBRILLATION POSSIBLE ANTERIOR MYOCARDIAL INFARCTION , PROBABLY OLD [30 ms Q WAVE IN V3/V4, OR R < 0.2 mV IN V4] MODERATE T-WAVE ABNORMALITY, CONSIDER INFERIOR ISCHEMIA [-0.1+ mV T-WAVE IN II/aVF] Compared to ECG 11/21/2022 19:49:23 Myocardial infarct finding now present Intraventricular conduction delay no longer present T-wave abnormality still present Possible ischemia still present Electronically Signed On 11-21-2022 23:53:04 CDT by Glory Simpson M.D. [id number]
[2022-11-21 21:46] LABS: Thyroid Stimulating Hormone 1.15 uIU/mL (0.27-4.20)
[2022-11-21] MEDS: TRAMadol 50 mg Tablet PO (23:00)
[2022-11-21] MEDS: levofloxacin-dextrose 5 % 750 MG/150 ML PREMIX 100 MG IV (23:01)
[2022-11-21 23:06] LABS: Troponin 5 6HR 14.78 ng/L (0-15)
[2022-11-21 23:19] LABS: Troponin 5 6HR Delta 2.78 ng/L (0-12)
[2022-11-21] MEDS: ipratropium-albuterol 3 mL Neb INHALATION (23:43)
[2022-11-21 23:47] LABS: Add Urine Microscopic? NO; Charge for UA Resulting for Rev
[2022-11-21 23:57] LABS: Bilirubin Urine Neg (Negative); Blood Urine Neg (Negative); Glucose Urine UA Norm (Normal); Ketones Urine 1+ (Negative); Leukocyte Esterase Urine Negative (Negative); Nitrate Urine Negative (Negative); Protein Urine Neg (Negative); Specific Gravity, Urine 1.005 (1.005-1.030); Urine Appearance Clear (CLEAR); Urine Color Light yellow (Yellow); Urobilinogen Urine Neg (Negative); pH Urine 6.5 (5-7)
[2022-11-22] VITALS (57 sets, daily range): BP systolic 112–137; BP diastolic 56–76; PULSE 75–107; RESP 16–42; TEMP 36.4–37.5; O2SAT 85–94
[2022-11-22 01:12] LABS: Adenovirus Not Detected (NOT DETECT); Chlamydia Pneumoniae Not Detected (NOT DETECT); Coronavirus 229E,HKU1,NL63,OC4 Not Detected (NOT DETECT); Human Metapneumovirus Not Detected (NOT DETECT); Human Rhinovirus/Enterovirus Detected (NOT DETECT); Influenza A Not Detected (NOT DETECT); Influenza A H1 Not Detected (NOT DETECT); Influenza A H1-2009 Not Detected (NOT DETECT); Influenza A H3 Not Detected (NOT DETECT); Influenza B Not Detected (NOT DETECT); Mycoplasma Pneumoniae Not Detected (NOT DETECT); Parainfluenza Virus Type 1 Not Detected (NOT DETECT); Parainfluenza Virus Type 2 Not Detected (NOT DETECT); Parainfluenza Virus Type 3 Not Detected (NOT DETECT); Parainfluenza Virus Type 4 Not Detected (NOT DETECT); Respiratory Syncytial Virus A Not Detected (NOT DETECT); Respiratory Syncytial Virus B Not Detected (NOT DETECT); SARS-COV-2 Not Detected (NOT DETECT)
[2022-11-22 05:11] LABS: Basophils # 0.1 10^3/uL (0.0-0.1); Basophils % 0.6 %; Eosinophils % 0.5 %; Hematocrit 40.2 % (42.0-52.0); Hemoglobin 12.1 g/dL (11.7-16.6); Lymphocytes # 0.4 10^3/uL (0.8-4.8); Lymphocytes % 4.1 %; Mean Corpuscular HGB Conc 30.1 g/dL (30.0-36.0); Mean Corpuscular Hemoglobin 24.9 pg (28.0-34.0); Mean Corpuscular Volume 82.9 fl (80-94); Mean Platelet Volume 10.2 fL (7.4-10.4); Monocytes # 0.3 10^3/uL (0.2-0.9); Monocytes % 3.1 %; Neutrophils # 7.94 10^3/uL (1.8-7.7); Neutrophils % 91.4 %; Nucleated Red Blood Cells % 0 %; Platelet Count 257 10^3/cmm (130-400); Red Blood Count 4.85 10^6/uL (4.1-5.3); Red Cell Distribution Width 17.2 % (12.1-15.1); White Blood Count 8.7 10^3/uL (4.0-10.0)
[2022-11-22 05:33] LABS: Anion Gap 19.1 (5-19); Blood Urea Nitrogen 10 mg/dL (8-23); Calcium 8.9 mg/dL (8.5-10.5); Carbon Dioxide 25 mmol/L (22-29); Chloride 98 mmol/L (98-107); Glomerular Filtration Rate 74.5 mL/min (90-130); Glucose 205 mg/dL (65-115); Magnesium 1.9 mg/dL (1.7-2.3); Osmolality Calculated 291 mOsm/kg (285-295); Potassium 4.1 mmol/L (3.5-5.1); Sodium 138 mmol/L (136-145)
[2022-11-22] MEDS: carvedilol 25 mg Tablet PO (05:47)
[2022-11-22] MEDS: clopidogrel 75 mg Tablet PO (05:47)
[2022-11-22] MEDS: escitalopram 10 mg Tablet PO (05:47)
--- NOTE | 2022-11-22 08:00 | XR_ITS ---
WS: [id number] EXAMINATION: XR chest 1V portable [id number] REASON FOR EXAM: pulm vasc congestion COMPARISON: 11/21/2022 ORDER DATE: 11/22/2022 7:58 AM TECHNIQUE: A single, portable frontal chest x-ray was obtained. X-RAY FINDINGS: The lungs are clear. Pleural spaces are clear. No pleural effusions or pneumothorax. Cardiomediastinal silhouette is unremarkable except for postsurgical mediastinal changes and moderate atherosclerotic aortic change. No evidence for pulmonary edema. Soft tissue and osseous structures are unremarkable. No tubes or lines are present. XR/XR chest 1V portable [id number] IMPRESSION: Unremarkable frontal portable chest x-ray.
[2022-11-22] MEDS: perflutren protein-a microsphr 0.22 mg/mL SDV 3 mL IV (08:03)
[2022-11-22] MEDS: isosorbide mononitrate ER 30 mg Tablet 60 MG PO (08:50)
[2022-11-22] MEDS: doxycycline 100 mg Tablet PO ×2 (08:51→18:14)
[2022-11-22] MEDS: predniSONE 20 mg Tablet 40 MG PO (08:51)
[2022-11-22] MEDS: apixaban 5 mg Tablet PO ×2 (08:51→18:15)
[2022-11-22] MEDS: pantoprazole DR 40 mg Tablet PO ×2 (08:51→18:15)
--- NOTE | 2022-11-22 09:05 | PC.NURSE ---
Physician orders Discontinue almanzar catheter order
[2022-11-22] MEDS: potassium chloride ER 20 mEq Tablet 40 MEQ PO (09:46)
[2022-11-22] MEDS: metOLazone 5 MG Tablet PO (09:46)
[2022-11-22] MEDS: FUROsemide 10 mg/mL SDV 4mL 40 MG IVP (09:47)
--- NOTE | 2022-11-22 09:55 | PC.CHAP ---
Pastoral Care Encounter/Spiritual Assessment Type of Contact [] Declined metallographic technician visit [] Patient/Family/Request visit [] Outpatient visit [] Follow-up visit [] Physician referral [] Code/Alert [x] Routine visit [] Staff referral [] Actively dying [] Patient sleeping [] Family support [] [] Out of room [] Palliative care [] [] Receiving care in room [] Pre-surgical visit [] Trauma [] Long length of stay [] ICU visit [] Other: Relational/Emotional Strength [x] Patient feels connected with others/family/visitors/staff [] Distress [] Loneliness/isolation [] Abandonment Spirituality of Patient [x] Person of [place] [x] Attends Islam of their [place] [x] Believes in Prayer [x] Reads Bible or Jainism materials [] There are Spiritual issues to be addressed Production Manufacturing Worker Interventions [x] Prayer [] Active listening [] Non-anxious presence [x] Spiritual/emotional support [] Crisis/trauma care [] Spiritual counseling [] Bereavement support [] Provided bereavement packet [] Provided Bible/devotional materials [] Provided toy/stuffed animal, coloring book to patient or family member [] Provided Communion [] Anointing/[place] [] Salvation [x] Completed spiritual assessment [] Other: Impact on Illness or Injury [] Angry [] Fearful [] Anxious [] Often cries [] Exhaustion [] Unable to work [] Unable to attend baptism [] Unable to walk/stand [] Unable to read [] Unable to drive [] Unable to eat/drink [] Unable to sleep [] Unable to be with family [] Patient intubated [] Other: Summary Time spent with patient 5 min
[2022-11-22 11:02] LABS: Glucose Point of Care 270 mg/dL (70-110)
[2022-11-22] MEDS: insulin lispro 100 unit/1 mL SUBCUT ×4 (11:31→22:00)
--- NOTE | 2022-11-22 12:48 | P.PN_ITS ---
Subjective Subjective: patient was seen this morning, he already feels much better, no fever reported Vitals/I&O/Wt Last Vital Signs Temp 97.6 F 11/22/22 08:00 Pulse 90 11/22/22 08:29 Resp 16 11/22/22 08:29 BP 129/59 11/22/22 08:00 Pulse Ox 94 11/22/22 08:29 O2 Del Method 11/22/22 08:29 O2 Flow Rate 3 11/22/22 08:29 11/21/22 11/22/22 11/22/22 22:59 06:59 14:59 Intake Total 0 / 0 250 / 250 360 / 360 Output Total 375 / 375 0 / 375 475 / 475 Balance -375 / -375 250 / -125 -115 / -115 Weight last 48 hrs Weight 120.656 kg Weight 120.656 kg Weight 120.656 kg Physical Exam Const: COMMON NORMALS: no acute distress and patient oriented x3 Resp: COMMON NORMALS: normal respiratory effort, No retractions and No use of accessory muscles AUSCULTATION: crackles Cardio: COMMON NORMALS: regular rate, regular rhythm, S1 normal heart sound present and S2 normal heart sound present RATE: regular rate RHYTHM: regular rhythm HEART SOUNDS: S1 normal heart sound present and S2 normal heart sound present GI: COMMON NORMALS: Normal to inspection, nondistended, normoactive bowel sounds present and non-tender Extremity: COMMON NORMALS: no pedal edema Neuro: COMMON NORMALS: patient oriented x3 Psych: COMMON NORMALS: mental status grossly normal Data 11/23/22 05:10 11/23/22 05:10 Micro: Microbiology 11/21/22 21:00 Blood Culture - Preliminary Blood SPECIMEN COLLECTED 11/21/22 21:03 Blood Culture - Preliminary Blood SPECIMEN COLLECTED A&P Assessment and plan (1) Rhinovirus infection: (2) GERD (gastroesophageal reflux disease): (3) Wheezing: (4) Anticoagulation adequate with anticoagulant therapy: (5) Productive cough: (6) Lower respiratory infection: (7) Chest pain: (8) Type 2 diabetes mellitus, without long-term current use of insulin: (9) Atrial fibrillation with controlled ventricular rate: (10) Atherosclerosis of coronary artery of [place] heart without angina pectoris: (11) S/P CABG x 3: (12) Systolic congestive heart failure: (13) PAD (peripheral artery disease): (14) Hypertension: (15) Hyperlipidemia: Qualifiers: Hyperlipidemia type: other hyperlipidemia Qualified Code(s): E78.49 - Other hyperlipidemia (16) CAD (coronary artery disease): (17) Fever: Plan #Acute on chronic systolic congestive heart failure, EF 27% #Atrial fibrillation, rate controlled #Shortness of breath most likely secondary to above #On chronic anticoagulation #History of CAD status post PCI #History of CABG #Hypertension #Peripheral arterial disease #Fever of unknown origin, suspect pulmonary etiology, possible bronchiolitis? #Diabetes mellitus ? Patient presented with shortness of breath, orthopnea, cough productive of sputum. Febrile 100.8, elevated white count. Has had recent bronchitis x2 and finished a prednisone taper along with antibiotics about a month ago. Also had salty pork yesterday and developed edema and acute onset shortness of breath. Cough also started overnight. Denies a fever at home or recent illness other than the one a month ago. Will be getting ablated for A-fib on December 14. Most likely patient has CHF exacerbation with a component of a viral upper respiratory illness. ? rhinovirus positive ? prednisone ? Placed on Lasix 40 IV daily, 1 dose metolazone, 1 dose klorcon ? Monitor BMP daily ? DuoNeb every every 6 hours as needed. ? May placed on BiPAP if respiratory status worsens however at this point I feel he is okay on room air. ? Continue Coreg, apixaban, Plavix, Imdur, omeprazole, resume enteresto ? Replete electrolytes as needed ? Keep potassium above 4, magnesium above 2 ? Low-dose intensity sliding scale insulin ACHS ? Chest pain is a lot better than arrival to ER. We will continue to monitor. Another EKG obtained and reviewed. No acute ischemic changes noted. 6-hour troponin is pending at this time. ? Check cardiac echo pending ? We will check another x-ray in a.m. ? Tylenol for fever, Zofran for nausea if needed - sputum culture gram stain, blood cultures, urinalysis ordered Full code SCDs, Eliquis should suffice for DVT prophylaxis Diet: Cardiac consistent carbohydrate diet GI prophylaxis: Not indicated Fluids: Not indicated Attestations Medical Necessity Statement*: patient requires hospitalization for chf exacerbation, rhinovirus Diagnoses Rhinovirus infection B34.8 GERD (gastroesophageal reflux disease) K21.9 Wheezing R06.2 Anticoagulation adequate with anticoagulant therapy Z79.01 Productive cough R05.8 Lower respiratory infection J22 Chest pain R07.9 Type 2 diabetes mellitus, without long-term current use of insulin E11.9 Atrial fibrillation with controlled ventricular rate I48.91 Atherosclerosis of coronary artery of [place] heart without angina pectoris I2 5.10 S/P CABG x 3 Z95.1 Systolic congestive heart failure I50.20 PAD (peripheral artery disease) I73.9 Hypertension I10 Hyperlipidemia E78.49 Hyperlipidemia type: other hyperlipidemia CAD (coronary artery disease) I25.10 Fever R50.9
[2022-11-22 16:44] LABS: Glucose Point of Care 264 mg/dL (70-110)
[2022-11-22] MEDS: carvedilol 12.5 mg Tablet PO (18:15)
--- NOTE | 2022-11-22 19:06 | PC.NURSE ---
Dr. Bocanegra is called regarding his Entresto. Entresto 49-51mg is on the MAR to be given today at 1800. The hospital pharmacy does not carry that dose and is requesting that he use his home medication. He lives in [place] and is wondering since he may be discharge tomorrow he doesn't want to send his to go and get it. His last home dose was 11/21/2022 in the morning. He states that his doctor in [place] increased his dose last to Entresto 49-51mg 2 tablets BID.
[2022-11-22 21:55] LABS: Glucose Point of Care 252 mg/dL (70-110)
[2022-11-22] MEDS: atorvastatin 40 mg Tablet PO (21:59)
[2022-11-23] VITALS (7 sets, daily range): BP systolic 100–152; BP diastolic 47–69; PULSE 66–104; RESP 16–24; O2SAT 91–96
[2022-11-23] MEDS: sacubitril/valsartan 24-26 mg Tablet 1 EACH PO (00:27)
[2022-11-23 05:44] LABS: Basophils % 0.5 %; Eosinophils # 0.1 10^3/uL (0.0-0.8); Eosinophils % 1.1 %; Hematocrit 41.5 % (42.0-52.0); Hemoglobin 12.4 g/dL (11.7-16.6); Lymphocytes # 1.4 10^3/uL (0.8-4.8); Lymphocytes % 16.1 %; Mean Corpuscular HGB Conc 29.9 g/dL (30.0-36.0); Mean Corpuscular Hemoglobin 24.8 pg (28.0-34.0); Mean Corpuscular Volume 82.8 fl (80-94); Mean Platelet Volume 9.8 fL (7.4-10.4); Monocytes # 1.7 10^3/uL (0.2-0.9); Monocytes % 20.5 %; Neutrophils # 5.23 10^3/uL (1.8-7.7); Neutrophils % 61.4 %; Nucleated Red Blood Cells % 0 %; Platelet Count 275 10^3/cmm (130-400); Red Blood Count 5.01 10^6/uL (4.1-5.3); Red Cell Distribution Width 17.2 % (12.1-15.1); White Blood Count 8.5 10^3/uL (4.0-10.0)
[2022-11-23 06:14] LABS: Anion Gap 14.1 (5-19); Blood Urea Nitrogen 19 mg/dL (8-23); Calcium 9.2 mg/dL (8.5-10.5); Carbon Dioxide 31 mmol/L (22-29); Chloride 98 mmol/L (98-107); Glomerular Filtration Rate 66.8 mL/min (90-130); Glucose 181 mg/dL (65-115); NT Pro B Type Natriuretic Pept 1052 pg/mL (0-125); Osmolality Calculated 295 mOsm/kg (285-295); Potassium 4.1 mmol/L (3.5-5.1); Sodium 139 mmol/L (136-145)
[2022-11-23] MEDS: escitalopram 10 mg Tablet PO (06:15)
[2022-11-23] MEDS: clopidogrel 75 mg Tablet PO (06:15)
[2022-11-23] MEDS: carvedilol 25 mg Tablet PO (06:15)
[2022-11-23 06:25] LABS: Glucose Point of Care 184 mg/dL (70-110)
[2022-11-23] MEDS: insulin lispro 100 unit/1 mL SUBCUT ×2 (07:57→11:35)
[2022-11-23] MEDS: pantoprazole DR 40 mg Tablet PO (09:31)
[2022-11-23] MEDS: FUROsemide 10 mg/mL SDV 4mL 40 MG IVP (09:31)
[2022-11-23] MEDS: apixaban 5 mg Tablet PO (09:32)
[2022-11-23] MEDS: isosorbide mononitrate ER 60 mg Tablet PO (09:32)
[2022-11-23] MEDS: doxycycline 100 mg Tablet PO (09:32)
[2022-11-23] MEDS: predniSONE 20 mg Tablet 40 MG PO (09:32)
[2022-11-23] MEDS: metOLazone 5 MG Tablet PO (10:34)
[2022-11-23] MEDS: acetaminophen 325 mg Tablet 650 MG PO (10:46)
--- NOTE | 2022-11-23 11:09 | P.DS_ITS ---
Discharge Providers Date of Admission: 11/21/22 19:32 Date of Discharge: November 23, 2022 Attending Provider at Admission: Misa Bocanegra MD Attending Provider at Discharge: Ricky Cheng MD Primary Care Provider: Teodoro Jon DO Diagnoses at Discharge Discharge Diagnosis (1) Rhinovirus infection: Status: Acute (2) GERD (gastroesophageal reflux disease): Status: Acute (3) Wheezing: Status: Acute (4) Anticoagulation adequate with anticoagulant therapy: Status: Acute (5) Productive cough: Status: Acute (6) Lower respiratory infection: Status: Acute (7) Chest pain: Status: Acute (8) Type 2 diabetes mellitus, without long-term current use of insulin: Status: Acute (9) Atrial fibrillation with controlled ventricular rate: Status: Acute (10) Atherosclerosis of coronary artery of [place] heart without angina pectoris: Status: Acute (11) S/P CABG x 3: Status: Acute Permanent problem details: GOMEZ to LAD, SVG to OM1, SVG to PDA (12) Systolic congestive heart failure: Status: Acute Permanent problem details: last echo 10/2017- LVEF 40%, normal diastolic function, trace MR. (13) PAD (peripheral artery disease): Status: Acute (14) Hypertension: Status: Acute (15) Hyperlipidemia: Status: Acute Qualifiers: Hyperlipidemia type: other hyperlipidemia Qualified Code(s): E78.49 - Other hyperlipidemia (16) CAD (coronary artery disease): Status: Acute Permanent problem details: Followed by Dr. Morrison, history of stenting and CABG (17) Fever: Status: Acute Reason for Visit Reason for Visit: SOB, Chest Pains, Cough Hospital Course Hospital Course yuly Salinas is a 67 year old male CAD s/p CABG with patent SVG to OM and RCA and GOMEZ to LAD in 2014, peripheral artery disease with left-sided bypass, diabetes and hypertension, PCI to LAD in May 2022 and another admission in August where he had an angiogram due to chest pain but did not have any significant blockages to be intervened upon, recent atrial fibrillation to be going for ablation on December 14 presented to the hospital today with mild chest discomfort and shortness of breath.? He states he was up in [place] yesterday and ate out at a restaurant and had pulled pork which was quite salty and by the time he got home his ankles were quite edematous.? He took an extra dose of Lasix today however states did not make a difference.? Chest pain feels like a pressure about 2 out of 10 in intensity located in the center of his chest which he says is better compared to when he first got to the ER.? He saw furniture fabricator Dr. Denis recently who was planned for ablation on December 14.? He saw his mail clerks supervisor on 08 November.? He was recently started on Entresto about a month ago and his dose has been doubled twice with most recent increase in dosage about a week ago.? He had an echocardiogram done at an outside facility which apparently showed EF of 27%.? Patient is currently on Eliquis and Plavix, no bleeding complications at this time.? He complains of severe orthopnea.? He also feels he is gurgling.? He states he feels a little bit better after receiving Lasix in the ER tonight.? He can finally breathe.? He says in the ER he was having conversational dyspnea.? Also states he has had bronchitis twice in the past few months and has completed antibiotics and a prednisone taper about a month ago.? He states he feels like his sinuses are dripping again and he could possibly having a flareup of bronchitis as well.? He has never been diagnosed with COPD.? He quit smoking in 1984.? Denies a fever at home.? He does endorse a cough productive of sputum however has not looked at the color of it.? Denies nausea, vomiting, abdominal pain, diarrhea, any other symptoms at this time other than what is stated above.? He says he had his first heart attack when he was 27 years old and since then has been battling with cardiac disease. ED course: 148/88, 30, 82, 97.9, satting 92% on room air.? WBC 12.3, sodium 133, potassium 4.1, chloride 97, creatinine 1.0, BNP 1100.? Chest x-ray was obtained which showed pulmonary vascular congestion and cardiomegaly.? Patient was given 60 IV Lasix x1.? Initial troponin 12, 2-hour troponin 11.? Third troponin is pending at this time.? EKG on arrival to ER showed atrial fibrillation rate controlled, nonspecific T wave changes.? Patient did have a fever of 100.8 tonight as well. Patient was admitted to [facility] for acute on chronic systolic CHF exacerbation, received diuresis, overall clinically improved. Discharged on Lasix 40 mg once daily with potassium replacement therapy, to follow-up with primary care for recheck kidney function on Monday. Follow-up with cardiology in 1 week. Patient's respiratory viral panel was positive for rhinovirus, received steroid treatment. Patient's echocardiogram showed Normal left ventricular size with borderline low LV ejection ?fraction of 52%. ?Because of the atrial arrhythmia segmental wall motion analysis ?difficult.? Mild diffuse hypokinesia of the left-ventricule? . ?Moderate biatrial enlargement. ?Minimally thickened aortic and mitral valves. ?Trace of mitral and tricuspid valve regurgitation. ?There is no pericardial effusion. ?There are no intracardiac masses. -Patient is to follow-up with cardiology in 1 week, if any chest pain palpitations go to emergency room Physical Exam Const: COMMON NORMALS: no acute distress and patient oriented x3 Resp: COMMON NORMALS: normal respiratory effort, No retractions, No use of accessory muscles and clear to auscultation bilaterally AUSCULTATION: clear to auscultation bilaterally Cardio: COMMON NORMALS: regular rate, regular rhythm, S1 normal heart sound present and S2 normal heart sound present RATE: regular rate RHYTHM: regular rhythm HEART SOUNDS: S1 normal heart sound present and S2 normal heart sound present GI: COMMON NORMALS: Normal to inspection, nondistended, normoactive bowel sounds present and non-tender Extremity: COMMON NORMALS: no pedal edema Neuro: COMMON NORMALS: patient oriented x3 Psych: COMMON NORMALS: mental status grossly normal Discharge Data Studies Completed and Pending Completed Studies During Hospitalization Category Date Time Status XR chest 1V portable [id number] Routine Exams 11/22/22 08:00 Completed XR chest 1V portable [id number] Stat Exams 11/21/22 17:06 Completed CV. echo wo/w contrast [id number] Routine Ultrasound 11/21/22 20:10 Completed Pending at discharge Category Date Time Status Basic Metabolic Panel AM LABS Lab 11/24/22 04:00 Ordered Basic Metabolic Panel AM LABS Lab 11/25/22 04:00 Ordered Blood Culture Stat Lab 11/21/22 21:00 Results Complete Blood Count w/Auto AM LABS Lab 11/24/22 04:00 Ordered Complete Blood Count w/Auto AM LABS Lab 11/25/22 04:00 Ordered NT Pro B Type Natriuretic Pept QAM Lab 11/24/22 06:00 Ordered NT Pro B Type Natriuretic Pept QAM Lab 11/25/22 06:00 Ordered Sputum Culture and Gram Stain Stat Lab 11/21/22 20:27 Results Radiology Impressions Chest X-Ray 11/22/22 08:00 IMPRESSION: Unremarkable frontal portable chest x-ray. Laboratory Results WBC 8.5 10^3/uL (4.0-10.0) 11/23/22 05:10 RBC 5.01 10^6/uL (4.1-5.3) 11/23/22 05:10 Hgb 12.4 g/dL (11.7-16.6) 11/23/22 05:10 Hct 41.5 % (42.0-52.0) L 11/23/22 05:10 MCV 82.8 fl (80-94) 11/23/22 05:10 MCH 24.8 pg (28.0-34.0) L 11/23/22 05:10 MCHC 29.9 g/dL (30.0-36.0) L 11/23/22 05:10 RDW 17.2 % (12.1-15.1) H 11/23/22 05:10 Plt Count 275 10^3/cmm (130-400) 11/23/22 05:10 MPV 9.8 fL (7.4-10.4) 11/23/22 05:10 Neut % (Auto) 61.4 % 11/23/22 05:10 Lymph % (Auto) 16.1 % 11/23/22 05:10 Fleming % (Auto) 20.5 % 11/23/22 05:10 Eos % (Auto) 1.1 % 11/23/22 05:10 Baso % (Auto) 0.5 % 11/23/22 05:10 Neut # (Auto) 5.23 10^3/uL (1.8-7.7) 11/23/22 05:10 Lymph # (Auto) 1.4 10^3/uL (0.8-4.8) 11/23/22 05:10 Fleming # (Auto) 1.7 10^3/uL (0.2-0.9) H 11/23/22 05:10 Eos # (Auto) 0.1 10^3/uL (0.0-0.8) 11/23/22 05:10 Baso # (Auto) 0.0 10^3/uL (0.0-0.1) 11/23/22 05:10 Nucleated RBC % (auto) 0 % 11/23/22 05:10 Nucleated RBCs # 0.0 /100WBC 11/23/22 05:10 Sodium 139 mmol/L (136-145) 11/23/22 05:10 Potassium 4.1 mmol/L (3.5-5.1) 11/23/22 05:10 Chloride 98 mmol/L (98-107) 11/23/22 05:10 Carbon Dioxide 31 mmol/L (22-29) H 11/23/22 05:10 Anion Gap 14.1 (5-19) 11/23/22 05:10 BUN 19 mg/dL (8-23) 11/23/22 05:10 Creatinine 1.1 mg/dL (0.7-1.2) 11/23/22 05:10 GFR Calculation 66.8 mL/min (90-130) L 11/23/22 05:10 Glucose 181 mg/dL (65-115) H 11/23/22 05:10 POC Glucose 184 mg/dL (70-110) H 11/23/22 06:16 Calculated Osmolality 295 mOsm/kg (285-295) 11/23/22 05:10 Calcium 9.2 mg/dL (8.5-10.5) 11/23/22 05:10 Magnesium 1.9 mg/dL (1.7-2.3) 11/22/22 03:47 Total Bilirubin 0.7 mg/dL (0.15-1.2) 11/21/22 17:15 AST 15 U/L (0-40) 11/21/22 17:15 ALT 13 U/L (0-41) 11/21/22 17:15 Alkaline Phosphatase 83 U/L (40-130) 11/21/22 17:15 Troponin T Baseline 12 ng/L (0-15) 11/21/22 17:15 Troponin T 120 Minute 11.42 ng/L (0-15) 11/21/22 19:23 Delta Troponin T -0.58 ABS# (0-10) L 11/21/22 19:23 Troponin T Hi Sens 6Hr 14.78 ng/L (0-15) 11/21/22 22:32 Troponin T Hi Sens 6Hr Delta 2.78 ng/L (0-12) 11/21/22 22:32 NT-Pro-B Natriuret Pep 1052 pg/mL (0-125) H 11/23/22 05:10 Total Protein 7.6 g/dL (6.6-8.7) 11/21/22 17:15 Albumin 4.6 g/dL (3.5-5.2) 11/21/22 17:15 Globulin 3.0 g/dL (1.3-4.6) 11/21/22 17:15 Procalcitonin 0.10 ng/mL (0-0.5) 11/21/22 21:03 TSH 1.15 uIU/mL (0.27-4.20) 11/21/22 21:03 Urine Color Light yellow (Yellow) 11/21/22 23: Urine Appearance Clear (CLEAR) 11/21/22 23: Urine pH 6.5 (5-7) 11/21/22 23:33 Ur Specific Mercer 1.005 (1.005-1.030) 11/21/22 23:33 Urine Protein Neg (Negative) 11/21/22 23: Urine Glucose (UA) Norm (Normal) 11/21/22 23: Urine Ketones 1+ (Negative) H 11/21/22 23:33 Urine Blood Neg (Negative) 11/21/22 23:33 Urine Nitrate Negative (Negative) 11/21/22 23: Urine Bilirubin Neg (Negative) 11/21/22 23: Urine Urobilinogen Neg mg/dL (Negative) 11/21/22 23:33 Ur Leukocyte Esterase Negative (Negative) 11/21/22 23:33 Nasal Influ A H1 2009 PCR Not detected (NOT DETECT) 11/21/22 23: Adenovirus (PCR) Not detected (NOT DETECT) 11/21/22: C. pneumoniae DNA (PCR) Not detected (NOT DETECT) 11/21/22 23:18 Coronavirus 229E (PCR) Not detected (NOT DETECT) 11/21/22 23: Human Metapneumovir PCR Not detected (NOT DETECT) 11/21/22 23:18 Influenza A (H1) PCR Not detected (NOT DETECT) 11/21/22 23:18 Influenza A (H3) PCR Not detected (NOT DETECT) 11/21/22 23:18 Influenza Type A (PCR) Not detected (NOT DETECT) 11/21/22 23:18 Influenza Type B (PCR) Not detected (NOT DETECT) 11/21/22 23:18 M. pneumoniae (PCR) Not detected (NOT DETECT) 11/21/22 23:18 Parainfluenza 1 (PCR) Not detected (NOT DETECT) 11/21/22 23:18 Parainfluenza 2 (PCR) Not detected (NOT DETECT) 11/21/22 23:18 Parainfluenza 3 (PCR) Not detected (NOT DETECT) 11/21/22 23:18 Parainfluenza 4 (PCR) Not detected (NOT DETECT) 11/21/22 23:18 RSV Type A (PCR) Not detected (NOT DETECT) 11/21/22 23:18 RSV Type B (PCR) Not detected (NOT DETECT) 11/21/22 23:18 Entero/Rhino (PCR) Detected (NOT DETECT) A 11/21/22 23:18 SARS-CoV-2 (PCR) Not detected (NOT DETECT) 11/21/22 23:18 Vitals Last Vital Signs Temp 98.9 F 11/22/22 20:00 Pulse 104 H 11/23/22 08:15 Resp 16 11/23/22 08:15 BP 100/47 11/23/22 08:00 Pulse Ox 92 11/23/22 08:15 O2 Del Method Nasal Cannula 11/23/22 08:15 O2 Flow Rate 3 11/23/22 08:15 Discharge Plan Discharge Condition: Stable Prescriptions: New potassium chloride [Klor-Con M20] 20 mEq tablet,ER particles/crystals 10 meq PO DAILY 30 Days Qty: 15 0RF doxycycline monohydrate 100 mg Tablet 100 mg PO BID 3 Days Qty: 6 0RF prednisone 20 mg Tablet 40 mg PO DAILY 3 Days Qty: 6 0RF furosemide [Lasix] 40 mg tablet 40 mg PO DAILY 30 Days Qty: 30 0RF Continued acetaminophen [Tylenol Extra Strength] 500 mg tablet 1,000 mg PO TID PRN (Reason: Pain) Rx Instructions: takes with tramadol cholecalciferol (vitamin D3) 2,000 unit tablet 2,000 unit PO QAM sildenafil (pulm.hypertension) [Revatio] 20 mg tablet 20 mg PO DIRECTED PRN (Reason: Erectile Dysfunction) isosorbide mononitrate 30 mg tablet extended release 24 hr 60 mg PO DAILY metformin 500 mg tablet extended release 24 hr 1,000 mg PO BID Hold Instructions: Resume on 04/22/22. Eliquis 5 mg tablet 5 mg PO BID Qty: 180 3RF glyburide 2.5 mg tablet 2.5 mg PO QAM Rx Instructions: take prior to first meal of the day Entresto 49-51 mg tablet 1 tab PO BID tramadol 50 mg tablet 100 mg PO TID PRN (Reason: Pain) Qty: 180 5RF spironolactone 25 mg tablet 12.5 mg PO QAM Qty: 45 3RF carvedilol 25 mg tablet See Rx Instructions .ROUTE .COMPLEX Qty: 135 3RF Rx Instructions: 25mg in the am and 12.5mg po pm escitalopram oxalate 10 mg tablet 10 mg PO QAM Qty: 90 1RF omeprazole 20 mg capsule,delayed release(DR/EC) 20 mg PO BID Qty: 180 3RF simvastatin 20 mg tablet 20 mg PO BEDTIME Qty: 90 3RF clopidogrel 75 mg tablet 75 mg PO QAM Qty: 30 1RF Centrum Silver Men 300-600-300 mcg Tablet 1 tab PO QAM zinc 50 mg Tablet 50 mg PO QAM ascorbic acid (vitamin C) [Vitamin C] 1,000 mg Tablet 1,000 mg PO QAM cyanocobalamin (vitamin B-12) [Vitamin B-12] 1,000 mcg Tablet 1,000 mcg PO QAM nitroglycerin [Nitrostat] 0.4 mg Tablet, Sublingual 0.4 mg SUBLINGUAL Q5M PRN (Reason: Chest Pain) Rx Instructions: do not exceed 3 doses per episode albuterol sulfate 90 mcg/actuation HFA aerosol inhaler 2 puff inhalation QID PRN (Reason: Shortness Of Breath) Discontinued furosemide 20 mg tablet 20 mg PO QAM Qty: 30 0RF Discharge Orders: Discharge Order (Routine); Ordered 11/23/22 Ordered By: Ricky Cheng Referrals: Patrick Moody M.D [Physician] - 1 week Teodoro Jon DO [Primary Care Provider] - Discharge Diet: Cardiac Discharge Activity: Resume usual activity Patient Instructions: Opioid Safety Activity Restrictions/Additional Instructions: - If you have any worsening respiratory emergency room -See your mail clerks supervisor in 1 week -Follow-up with Dr. Way on Monday Discharge Attestations Time Spent in Discharge Care*: greater than 30 min Quality Metrics Clinical Quality Measures [ No reported AMI, CVA or VTE this stay] Coding Level of Care Code 26037 Total time (in minutes) for Discharge: 40 Diagnoses Rhinovirus infection B34.8 GERD (gastroesophageal reflux disease) K21.9 Wheezing R06.2 Anticoagulation adequate with anticoagulant therapy Z79.01 Productive cough R05.8 Lower respiratory infection J22 Chest pain R07.9 Type 2 diabetes mellitus, without long-term current use of insulin E11.9 Atrial fibrillation with controlled ventricular rate I48.91 Atherosclerosis of coronary artery of [place] heart without angina pectoris I25.10 S/P CABG x 3 Z95.1 Systolic congestive heart failure I50.20 PAD (peripheral artery disease) I73.9 Hypertension I10 Hyperlipidemia E78.49 Hyperlipidemia type: other hyperlipidemia CAD (coronary artery disease) I25.10 Fever R50.9
[2022-11-23 11:33] LABS: Glucose Point of Care 320 mg/dL (70-110)
== END 2022-11-23 14:01 | disposition home or self-care (01) | DRG 291 ==
LOC: ER 18:59 → MEDSURG 19:32 → CSU 22:03
PROVIDERS: Family Medicine; Admitting Provider Internal Medicine; Emergency Provider Emergency Medicine; PCP Family Medicine; Visit Provider Family Medicine
DX: I11.0 Hypertensive heart disease with heart failure (principal); I50.23 Acute on chronic systolic (congestive) heart failure; I25.10 Atherosclerotic heart disease of native coronary artery without angina pectoris; Z95.1 Presence of aortocoronary bypass graft; E11.51 Type 2 diabetes mellitus with diabetic peripheral angiopathy without gangrene; I48.91 Unspecified atrial fibrillation; Z87.891 Personal history of nicotine dependence; I25.2 Old myocardial infarction; B97.89 Other viral agents as the cause of diseases classified elsewhere; Z79.84 Long term (current) use of oral hypoglycemic drugs; Z79.01 Long term (current) use of anticoagulants; Z79.891 Long term (current) use of opiate analgesic; Z79.02 Long term (current) use of antithrombotics/antiplatelets; Z79.51 Long term (current) use of inhaled steroids; Z88.0 Allergy status to penicillin; E66.9 Obesity, unspecified; Z68.34 Body mass index [BMI] 34.0-34.9, adult; E78.49 Other hyperlipidemia; K21.9 Gastro-esophageal reflux disease without esophagitis
CPT/HCPCS: 36415; 36416; 71045; 80048; 80053; 81003; 82962; 83735; 83880; 84145; 84443; 84484; 85025; 87040; 87070; 87205; 87486; 87581; 87633; 93005; 94640; 94760; 96372; 96374; 96376; 99285; C8929; J1815; J1940; J1956; J2920; J7512; Q9956

== ENCOUNTER → 2022-11-29 13:49 | Outpatient (BNVA) | payer MEDICARE, OTHER, SELFPAY | PROVIDERS: PCP Family Medicine; Visit Provider Nurse Practitioner Family | DX: I11.0 Hypertensive heart disease with heart failure (principal); I50.23 Acute on chronic systolic (congestive) heart failure; Z87.891 Personal history of nicotine dependence | CPT/HCPCS: 99213 ==

== ENCOUNTER → 2023-04-27 13:41 | Outpatient (BNVA) | payer MEDICARE, OTHER, SELFPAY | PROVIDERS: PCP Family Medicine; Visit Provider Family Medicine | DX: R31.9 Hematuria, unspecified (principal) | CPT/HCPCS: 81000 ==

== ENCOUNTER 2023-05-02 14:33 | Outpatient (CLI) | payer MEDICARE, OTHER, SELFPAY ==
[2023-05-02 15:49] LABS: Add Urine Culture? Yes; Add Urine Microscopic? YES; Bacteria Urine 2+ /hpf; Bilirubin Urine Neg (Negative); Blood Urine Neg (Negative); Glucose Urine UA Norm (Normal); Ketones Urine Negative (Negative); Leukocyte Esterase Urine 1+ (Negative); Nitrate Urine Negative (Negative); Protein Urine Neg (Negative); RBC Urine 0-4 /hpf (0-2); Specific Gravity, Urine 1.015 (1.005-1.030); Squamous Epithelial Cell Urine 0-4 /hpf (0-5); Urine Appearance Hazy (CLEAR); Urine Color Yellow (Yellow); Urobilinogen Urine Norm (Negative); WBC Urine 40-55 /hpf (0-5); pH Urine 5 (5-7)
== END 2023-05-02 14:34 | disposition home or self-care (01) ==
LOC: LAB 14:36
PROVIDERS: PCP Family Medicine; Visit Provider Family Medicine
DX: R31.9 Hematuria, unspecified (principal)
CPT/HCPCS: 81001; 87077; 87086; 87186

== ENCOUNTER 2023-05-09 14:28 | Outpatient (CLI) | payer MEDICARE, OTHER, SELFPAY ==
[2023-05-09 14:54] LABS: Add Urine Microscopic? NO; Charge for UA Resulting for Rev
[2023-05-09 15:00] LABS: Bilirubin Urine Neg (Negative); Blood Urine Neg (Negative); Glucose Urine UA Norm (Normal); Ketones Urine Negative (Negative); Leukocyte Esterase Urine Negative (Negative); Nitrate Urine Negative (Negative); Protein Urine Neg (Negative); Specific Gravity, Urine 1.025 (1.005-1.030); Urine Appearance Clear (CLEAR); Urine Color Yellow (Yellow); Urobilinogen Urine Norm (Negative); pH Urine 5 (5-7)
== END 2023-05-09 14:29 | disposition home or self-care (01) ==
PROVIDERS: PCP Family Medicine; Visit Provider Family Medicine
DX: R31.9 Hematuria, unspecified (principal)
CPT/HCPCS: 81003; 87086; 99214

== ENCOUNTER 2023-05-16 12:48 | Outpatient (CLI) | payer MEDICARE, OTHER, SELFPAY ==
[2023-05-16 13:10] LABS: Add Urine Microscopic? NO; Charge for UA Resulting for Rev
[2023-05-16 13:17] LABS: Urine Appearance Clear (CLEAR); Urine Color Yellow (Yellow); pH Urine 5 (5-7)
[2023-05-16 13:18] LABS: Bilirubin Urine Neg (Negative); Blood Urine Neg (Negative); Glucose Urine UA Norm (Normal); Ketones Urine Negative (Negative); Leukocyte Esterase Urine Negative (Negative); Nitrate Urine Negative (Negative); Protein Urine Neg (Negative); Urobilinogen Urine Norm (Negative)
== END 2023-05-16 12:49 | disposition home or self-care (01) ==
LOC: LAB 12:50
PROVIDERS: PCP Family Medicine; Visit Provider Family Medicine
DX: R31.9 Hematuria, unspecified (principal)
CPT/HCPCS: 81003; 87086

== ENCOUNTER → 2023-05-29 09:49 | Outpatient (BNVA) | payer MEDICARE, OTHER, SELFPAY | PROVIDERS: PCP Family Medicine; Visit Provider Family Medicine | DX: K21.9 Gastro-esophageal reflux disease without esophagitis (principal); E11.9 Type 2 diabetes mellitus without complications; I48.91 Unspecified atrial fibrillation; E78.5 Hyperlipidemia, unspecified; Z13.6 Encounter for screening for cardiovascular disorders; I50.20 Unspecified systolic (congestive) heart failure | CPT/HCPCS: 80053; 80061; 83036 ==

== ENCOUNTER → 2023-08-23 14:19 | Outpatient (BNVA) | payer MEDICARE, OTHER, SELFPAY | PROVIDERS: PCP Family Medicine; Visit Provider Internal Medicine | DX: I11.0 Hypertensive heart disease with heart failure (principal); I50.20 Unspecified systolic (congestive) heart failure; I48.91 Unspecified atrial fibrillation; I25.10 Atherosclerotic heart disease of native coronary artery without angina pectoris; I65.29 Occlusion and stenosis of unspecified carotid artery; Z95.1 Presence of aortocoronary bypass graft; E78.49 Other hyperlipidemia; Z79.01 Long term (current) use of anticoagulants; R52 Pain, unspecified; Z87.891 Personal history of nicotine dependence; E11.51 Type 2 diabetes mellitus with diabetic peripheral angiopathy without gangrene; Z79.84 Long term (current) use of oral hypoglycemic drugs | CPT/HCPCS: 99214 ==

== ENCOUNTER 2023-09-11 08:48 | Outpatient (CLI) | payer MEDICARE, OTHER, SELFPAY ==
--- NOTE | 2023-09-11 | ECG_ITS ---
[facility] Test Date: 2023-09-11 Pat Name: Dwayne Salinas Department: Room: Gender: Male Carbon Accountant: Chari Shaw : 1955 Requested By: Patrick Moody Order Number: [id number] [place] MD: Patrick Moody M.D. Interpretive Statements NAME OF STUDY: LEXISCAN SESTAMIBI STRESS TEST INDICATION: [CP/SOB, ] Procedure: At the baseline, the blood pressure was 118/65 mmHg with a heart rate of 71 bpm. The electrocardiogram showed atrial fibrillation normal axis with normal ST and T's. The Lexiscan was infused over a period of 20 seconds. A total of 0.4 mg of Lexiscan was infused. The stress phase was continued for a total of 5 minutes. Heart rate was at the end of stress phase was 85 bpm and a blood pressure of 116/69 mmHg. The EKG at the peak infusion revealed atrial fibrillation with no significant ST-T wave changes. Sestamibi was injected 20 seconds after the Lexiscan infusion. Blood pressure at the end of recovery phase was 125/70 mmHg with a heart rate of 80 bpm. Conclusion: 1. Normal EKG response to Lexiscan infusion 2. No Lexiscan induced chest pain or cardiac arrhythmia. 3. Normal blood pressure and heart rate response. 4. Sestamibi/sestamibi perfusion scan pending; see separate report. Electronically Signed On 09-17-2023 11:52:18 CUSTOMER MANAGER by Patrick Moody M.D. [email or web address]
[2023-09-11 09:00] VITALS: BMI 35.8
--- NOTE | 2023-09-11 09:26 | NMCV_ITS ---
NM lian perf SPECT r/s* [id number] Brad Dwayne Age: 67 Gender: M : 1955 Exam Date: 09/11/2023 09:26 Ordering Phys: Patrick Moody M.D ([email or web address]) Technologist: TAMMY Piña Exam Location: [facility] Indications: CHEST PAIN STRESS TEST Please see separate stress test report in [facility] for full findings IMAGE PROTOCOL Rest/Stress 1 Lexiscan Day Radiopharmaceutical Dose (mCi) Administration Site Administered by Rest: Tc-99m 11.0 IV TAMMY Piña Sestamibi Stress:Tc-99m 33.0 IV TAMMY Harrison Sestamibi Rest: 11-Sep-2023 60 Discovery 630 Stress: 11-Sep-2023 30 Discovery 630 0.4mg Lexiscan. Supine position only as patient was unable to lay prone. SPECT RESULTS Technical Quality: Excellent Raw Data Analysis: Normal Image Corrections: No attenuation or motion correction applied Summed Stress Score: 14 Summed Rest Score: 11 Summed Difference Score: 3 PERFUSION FINDINGS Large area of mostly fixed perfusion defect seen in inferior wall. This is consistent with large sized prior infarct in the RCA territory with minimal brittani-infarct ischemia. Medium sized area of fixed perfusion defect with minimal brittani-infarct reversibility is seen in apical septal and septal martino. This is consistent with medium sized area of prior infarct with minimal brittani- infarct ischemia and LAD territory. FUNCTIONAL RESULTS (calculated via Gated SPECT) Stress Image LV EF (%): 40 Stress EDV (mL):228 TID: 1.05 Stress ESV (mL):137 FUNCTIONAL FINDINGS: LV systolic function is mild to moderately reduced. Mild to moderate global hypokinesis. IMPRESSIONS 1. Abnormal myocardial perfusion imaging with large area of prior infarct with minimal brittani-infarct ischemia in RCA territory. 2. Medium sized area of prior infarct with minimal brittani-infarct ischemia seen in LAD territory. 3. LV systolic function is mild to moderately reduced. Patrick Moody MD (Electronically Signed) Final Date: 16 September 2023 13:16 S
[2023-09-11] MEDS: regadenoson 0.4 Mg/5 ml Syringe IVP (10:23)
[2023-09-11 10:33] VITALS: BP 125/70; PULSE 83
== END 2023-09-11 08:49 | disposition home or self-care (01) ==
PROVIDERS: PCP Family Medicine; Visit Provider Internal Medicine
DX: R07.9 Chest pain, unspecified (principal); R06.02 Shortness of breath; R94.39 Abnormal result of other cardiovascular function study; I25.2 Old myocardial infarction
CPT/HCPCS: 36415; 78452; 93017; 96374; A9500; J2785

== ENCOUNTER → 2023-09-14 09:53 | Outpatient (BNVA) | payer MEDICARE, OTHER, SELFPAY | PROVIDERS: PCP Family Medicine; Visit Provider Family Medicine | DX: Z13.6 Encounter for screening for cardiovascular disorders (principal); I10 Essential (primary) hypertension; I50.20 Unspecified systolic (congestive) heart failure; I48.91 Unspecified atrial fibrillation; E78.49 Other hyperlipidemia; I73.9 Peripheral vascular disease, unspecified; E11.9 Type 2 diabetes mellitus without complications | CPT/HCPCS: 80053; 80061; 82607; 83036 ==

== ENCOUNTER → 2023-11-07 15:21 | Outpatient (BNVA) | payer MEDICARE, OTHER, SELFPAY | PROVIDERS: PCP Family Medicine; Visit Provider Internal Medicine | DX: I11.0 Hypertensive heart disease with heart failure (principal); I50.20 Unspecified systolic (congestive) heart failure; I48.91 Unspecified atrial fibrillation; Z79.01 Long term (current) use of anticoagulants; I25.10 Atherosclerotic heart disease of native coronary artery without angina pectoris; I65.29 Occlusion and stenosis of unspecified carotid artery; Z95.1 Presence of aortocoronary bypass graft; E78.49 Other hyperlipidemia; R52 Pain, unspecified; E11.51 Type 2 diabetes mellitus with diabetic peripheral angiopathy without gangrene; Z87.891 Personal history of nicotine dependence; Z79.84 Long term (current) use of oral hypoglycemic drugs | CPT/HCPCS: 99214 ==

== ENCOUNTER → 2023-12-25 09:49 | Outpatient (BNVA) | payer MEDICARE, OTHER, SELFPAY | PROVIDERS: PCP Family Medicine; Visit Provider Family Medicine | DX: I10 Essential (primary) hypertension (principal); I50.20 Unspecified systolic (congestive) heart failure; I25.10 Atherosclerotic heart disease of native coronary artery without angina pectoris; I48.91 Unspecified atrial fibrillation; E11.9 Type 2 diabetes mellitus without complications | CPT/HCPCS: 80053; 80061; 83036 ==

== ENCOUNTER → 2024-05-21 16:35 | Outpatient (BNVA) | payer MEDICARE, OTHER, SELFPAY | PROVIDERS: PCP Family Medicine; Visit Provider Internal Medicine | DX: I50.20 Unspecified systolic (congestive) heart failure (principal); I10 Essential (primary) hypertension | CPT/HCPCS: 36415; 80048; 83880 ==

== ENCOUNTER → 2024-05-27 10:06 | Outpatient (BNVA) | payer MEDICARE, OTHER, SELFPAY | PROVIDERS: PCP Family Medicine; Visit Provider Family Medicine | DX: E11.9 Type 2 diabetes mellitus without complications (principal) | CPT/HCPCS: 83036 ==

== ENCOUNTER 2024-05-29 09:11 | Inpatient (IN) | payer MEDICARE, OTHER, SELFPAY ==
[2024-05-29] VITALS (11 sets, daily range): BP systolic 110–153; BP diastolic 52–71; PULSE 55–77; RESP 15–22; TEMP 36.5–36.8; O2SAT 92–100; BMI 33.3
--- NOTE | 2024-05-29 09:16 | XRR_ITS ---
PROCEDURE INFORMATION: Exam: XR Chest Exam date and time: 05/29/2024 9:35 AM Age: 68 years old Clinical indication: Cough and dyspnea; Additional info: Dyspnea/cough TECHNIQUE: Imaging protocol: Radiologic exam of the chest. Views: 1 view. COMPARISON: CR XR chest 1V portable [id number] 11/22/2022 7:05 AM FINDINGS: Tubes, catheters and devices: Left chest wall pacer device with unremarkable leads. Lungs: Unremarkable. No consolidation. Pleural spaces: Unremarkable. No pleural effusion. No pneumothorax. Heart/Mediastinum: Cardiomegaly. Vasculature: Atherosclerotic disease of the aortic arch. Bones/joints: Status post sternotomy. Diffuse degenerative change of the visualized osseous structures. XR/XR chest 1V portable [id number] IMPRESSION: No acute cardiopulmonary findings.
--- NOTE | 2024-05-29 09:18 | ECG_ITS ---
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 Measurements Intervals [place] Rate: 64 P: 0 TN: 0 QRS: -60 QRSD: 162 T: 0 QT: 270 QTc: 280 Interpretive Statements ELECTRONIC VENTRICULAR PACEMAKER ABNORMAL RHYTHM ECG Compared to ECG 11/21/2022 21:43:18 The underlying rhythm is possibly atrial fibrillation Myocardial infarct finding no longer present T-wave abnormality no longer present Possible ischemia no longer present Electronically Signed On 05-29-2024 16:42:00 CDT by Glory Simpson M.D. [email or web address] negro
--- NOTE | 2024-05-29 09:36 | W.ED.CHESTPA ---
HPI - Chest Pain General: Chief Complaint: Chest Pain Stated Complaint: chest pain, feel like passing out Time Seen by Provider: 05/29/24 09:13 History of Present Illness: 60-year-old male presents emergency room with complaint of chest pain. He has a couple episodes he felt like he was going to pass out he says the discomfort is worse with exertion and improves with rest. No known history of atrial fibrillation he does have a pacer recently had his pacer interrogated and he has been in A-fib for the last couple months states started him on amiodarone. He is also on Eliquis and clopidogrel. Also recently had metaxalone added to his diuretic regimen he is taking metaxalone and Lasix simultaneously reports 16 pound weight loss in the last week Associated symptoms: Deny abdominal pain, dyspnea or fever(s) Related Data Home Medications Medication Instructions Recorded Confirmed acetaminophen 500 mg tablet 1,000 mg PO TID PRN Pain 09/17/19 05/29/24 (Tylenol Extra Strength) cholecalciferol (vitamin D3) 50 2,000 unit PO QAM 09/17/19 05/29/24 mcg (2,000 unit) tablet [id number] 300 mcg-K 60 1 tab PO QAM 09/19/19 05/29/24 mcg-lycop 600 mcg-lutein 300 mcg tablet (Centrum Silver Men) ascorbic acid (vitamin C) 1,000 mg 1,000 mg PO QAM 04/19/22 05/29/24 tablet (Vitamin C) cyanocobalamin (vitamin B-12) 1,000 mcg PO QAM 04/19/22 05/29/24 1,000 mcg tablet (Vitamin B-12) zinc 50 mg tablet 50 mg PO QAM 04/19/22 05/29/24 albuterol sulfate 90 mcg/actuation 2 puff inhalation QID PRN 11/21/22 05/29/24 aerosol inhaler Shortness Of Breath amiodarone 400 mg tablet 400 mg PO DAILY 05/29/24 05/29/24 apixaban 5 mg tablet (Eliquis) 5 mg PO BID 05/29/24 05/29/24 metformin 500 mg tablet,extended 1,000 mg PO BID 05/29/24 05/29/24 release 24 hr spironolactone 25 mg tablet 12.5 mg PO DAILY 05/29/24 05/29/24 Previous Rx's Medication Instructions Recorded carvedilol 25 mg tablet See Rx Instructions .Route 05/29/23 .COMPLEX #135 tabs nitroglycerin 0.4 mg sublingual 0.4 mg sublingual Q5M PRN Chest 08/23/23 tablet (Nitrostat) Pain #25 tabs omeprazole 20 mg capsule,delayed 20 mg PO BID #180 caps 10/05/23 release simvastatin 20 mg tablet 20 mg PO BEDTIME #90 tabs 10/05/23 ranolazine 500 mg tablet,extended 500 mg PO BID #180 tabs 11/07/23 release,12 hr sacubitril 49 mg-valsartan 51 mg 1 tab PO BID #180 tabs 11/07/23 tablet (Entresto) tramadol 50 mg tablet 100 mg (2 x 50 mg) PO TID PRN Pain 11/27/23 #180 tabs tadalafil 5 mg tablet 5 mg PO DAILY Ed, prostate heatlh 12/25/23 #30 tabs escitalopram oxalate 10 mg tablet 10 mg PO QAM #90 tabs 01/01/24 clopidogrel 75 mg tablet 75 mg PO QAM #90 tabs 01/05/24 blood sugar diagnostic (ReliOn #100 ea 02/05/24 Prime Test Strips) glyburide 5 mg tablet 5 mg PO QAM #90 tabs 04/01/24 furosemide 40 mg tablet (Lasix) 40 mg PO BID 90 days #180 tabs 05/23/24 metolazone 2.5 mg tablet 2.5 mg PO DAILY #14 tabs 05/23/24 potassium chloride 20 mEq 20 meq PO DAILY #90 tabs 05/23/24 tablet,extended release Allergies Allergy/AdvReac Type Severity Reaction Status Date / Time penicillin G Allergy HIVES Verified 05/27/24 09:41 Penicillins Allergy ALGY-Hives Verified 05/27/24 09:41 propoxyphene Allergy VERY SHORT Verified 05/27/24 09:41 [From [place]] OF BREATH Review of Systems Const: Denies: fever(s) or chills Card: Denies: chest pain Resp: Denies: dyspnea GI: Denies: abdominal pain : Denies: dysuria, urinary frequency or urinary urgency Musc: Denies: neck pain or back pain Skin/Breast: Denies: rash [facility] ED PFS: Medical History Anticoagulation adequate with anticoagulant therapy Atrial fibrillation with controlled ventricular rate Systolic congestive heart failure last echo 11/2022- LVEF 52%, trace MR. Type 2 diabetes mellitus, without long-term current use of insulin Adult-onset obesity GERD (gastroesophageal reflux disease) Anxiety PAD (peripheral artery disease) Ischemic cardiomyopathy Hypertension Hyperlipidemia CAD (coronary artery disease) Surgical History History of surgery on extremity 12/28/2014: Right groin and femoral artery exploration and primary repair of right femoral artery catheterization site History of carpal tunnel release History of femoropopliteal bypass Left common femoral artery bypass surgery performed by Dr. Carrillo on 12/15/2014 History of umbilical hernia repair History of cholecystectomy History of cardiac radiofrequency ablation S/P CABG x 3 GOMEZ to LAD, SVG to OM1, SVG to PDA Coronary angioplasty status 04/25/15: balloon angioplasty to PDA and PLB, GOMEZ to LAD patent, SVG to OM 1 patent, SVG to PDA patent. Prox RCA 60% stenosis. Family History Brother CAD (coronary artery disease) Diabetes Hyperlipidemia Hypertension Mother CAD (coronary artery disease) Cancer Diabetes Hyperlipidemia Hypertension Grandfather Cancer Father Diabetes Hyperlipidemia Hypertension Denies family history of Clotting disorder Dementia Psychiatric illness Chronic kidney disease (CKD) Suicide Anesthesia complication Bleeding disorder Family history of premature coronary artery disease Lung disease Stroke Social History Smoking and tobacco/nicotine status: former use of tobacco/nicotine Alcohol intake: never Substance/Drug Use: never Physical Exam Const: GENERAL APPEARANCE: cooperative ORIENTATION/CONSCIOUSNESS: Yes awake, Yes oriented to person, Yes oriented to place and Yes oriented to time HENMT: COMMON NORMALS: normocephalic, atraumatic and hearing grossly normal bilaterally HEAD & SCALP: normocephalic and atraumatic Resp: COMMON NORMALS: normal respiratory effort, No retractions, No use of accessory muscles and clear to auscultation bilaterally AUSCULTATION: clear to auscultation bilaterally Cardio: COMMON NORMALS: regular rate, regular rhythm and No murmurs present (Cardio) RATE: regular rate RHYTHM: regular rhythm GI: COMMON NORMALS: Soft to palpation and No hepatosplenomegaly present AUSCULTATION: Yes normoactive bowel sounds PALPATION: Yes Soft to palpation, No Tenderness to palpation present (GI), No Guarding due to palpation present (GI) and Yes No hepatosplenomegaly present Extremity: COMMON NORMALS: normal to inspection, capillary refill normal, no clubbing, cyanosis or edema, no calf tenderness and no pedal edema Neuro: SENSORIUM/ORIENTATION: Yes oriented to person, Yes oriented to place and Yes oriented to time Skin: COMMON NORMALS: no rashes or lesions noted GENERAL SKIN EXAM: no rashes or lesions noted Course Vital Signs: Vital signs: Vital Signs Temperature 98.3 F 05/29/24 09:25 Pulse Rate 57 L 05/29/24 11:43 Respiratory Rate 18 05/29/24 11:16 Blood Pressure 110/56 05/29/24 11:07 Pulse Oximetry 95 05/29/24 11:16 Oxygen Delivery Me thod Room Air 05/29/24 11:16 MDM - Chest Pain Medical Decision Making Acute kidney injury with hyperkalemia. Think this is likely due to overdiuresis. Treat hyperkalemia admit discussed with hospitalist orders written reviewed findings with the patient. Medical Records I reviewed the patient's medical records. Lab Data I reviewed the patient's lab results. 05/29/24 10:01 05/29/24 10:01 Radiology Impressions Chest X-Ray 05/29/24 09:16 IMPRESSION: No acute cardiopulmonary findings. Laboratory Results WBC 8.67 10^3/uL (3.29-11.43) 05/29/24 10:01 RBC 4.88 10^6/uL (3.85-5.65) 05/29/24 10:01 Hgb 10.70 g/dL (11.27-16.99) L 05/29/24 10:01 Hct 37.1 % (37-53) 05/29/24 10:01 MCV 76.0 fl (82-101) L 05/29/24 10:01 MCH 21.9 pg (27-33) L 05/29/24 10:01 MCHC 28.8 g/dL (30-55) L 05/29/24 10:01 RDW 17.0 % (12.1-15.1) H 05/29/24 10:01 Plt Count 372 10^3/cmm (157-399) 05/29/24 10:01 MPV 9.3 fL (7.4-10.4) 05/29/24 10:01 Neut % (Auto) 78.5 % 05/29/24 10:01 Lymph % (Auto) 10.3 % 05/29/24 10:01 [place] % (Auto) 7.5 % 05/29/24 10:01 Eos % (Auto) 2.4 % 05/29/24 10:01 Baso % (Auto) 1.0 % 05/29/24 10:01 Neut # (Auto) 6.80 10^3/uL (1.8-7.7) 05/29/24 10:01 Lymph # (Auto) 0.9 10^3/uL (0.8-4.8) 05/29/24 10:01 [place] # (Auto) 0.7 10^3/uL (0.2-0.9) 05/29/24 10:01 Eos # (Auto) 0.2 10^3/uL (0.0-0.8) 05/29/24 10:01 Baso # (Auto) 0.1 10^3/uL (0.0-0.1) 05/29/24 10:01 Nucleated RBC % (auto) 0 % 05/29/24 10:01 Nucleated RBCs # 0.0 /100WBC 05/29/24 10:01 Sodium 133 mmol/L (136-145) L 05/29/24 10:01 Potassium 5.8 mmol/L (3.5-5.1) H 05/29/24 10:01 Chloride 93 mmol/L (98-107) L 05/29/24 10:01 Carbon Dioxide 25 mmol/L (22-29) 05/29/24 10:01 Anion Gap 20.8 (5-19) H 05/29/24 10:01 BUN 36 mg/dL (8-23) H 05/29/24 10:01 Creatinine 2.3 mg/dL (0.7-1.2) H 05/29/24 10:01 GFR Calculation 28.4 mL/min (90-130) L 05/29/24 10:01 Glucose 245 mg/dL (65-115) H 05/29/24 10:01 Calculated Osmolality 292 mOsm/kg (285-295) 05/29/24 10:01 Calcium 9.2 mg/dL (8.5-10.5) 05/29/24 10:01 Magnesium 2.2 mg/dL (1.7-2.3) 05/29/24 10:01 Iron 42 ug/dL (59-158) L 05/29/24 10:01 TIBC 532 mcg/dl 05/29/24 10:01 % Saturation 7.8 % (20-50) L 05/29/24 10:01 Unsat Iron Binding 490 ug/dL (112-347) H 05/29/24 10:01 Ferritin 18 ng/mL (30-400) L 05/29/24 10:01 Total Bilirubin 0.6 mg/dL (0.15-1.2) 05/29/24 10:01 AST 17 U/L (0-40) 05/29/24 10:01 ALT 11 U/L (0-41) 05/29/24 10:01 Alkaline Phosphatase 92 U/L (40-130) 05/29/24 10:01 Troponin T Baseline 47 ng/L (0-15) H 05/29/24 10:01 Total Protein 7.2 g/dL (6.6-8.7) 05/29/24 10:01 Albumin 4.5 g/dL (3.5-5.2) 05/29/24 10:01 Globulin 2.7 g/dL (1.3-4.6) 05/29/24 10:01 All radiology interpretation(s) finalized by discharge Discharge Plan Discharge Patient Disposition: Admitted As Inpatient Clinical Impression: Hyperkalemia, Acute kidney injury, Anemia, Type 2 diabetes mellitus, without long-term current use of insulin Condition: Stable Prescriptions: No Action acetaminophen [Tylenol Extra Strength] 500 mg tablet 1,000 mg PO TID PRN (Reason: Pain) Rx Instructions: takes with tramadol cholecalciferol (vitamin D3) 2,000 unit tablet 2,000 unit PO QAM carvedilol 25 mg tablet See Rx Instructions .ROUTE .COMPLEX Qty: 135 3RF Rx Instructions: take 1 tablet by mouth in the morning then 1/2 tablet in the evening ranolazine 500 mg tablet extended release 12 hr 500 mg PO BID Qty: 180 4RF Entresto 49-51 mg tablet 1 tab PO BID Qty: 180 4RF tadalafil 5 mg tablet 5 mg PO DAILY Qty: 30 3RF nitroglycerin [Nitrostat] 0.4 mg tablet, sublingual 0.4 mg SUBLINGUAL Q5M PRN (Reason: Chest Pain) Qty: 25 2RF Rx Instructions: do not exceed 3 doses per episode omeprazole 20 mg capsule,delayed release(DR/EC) 20 mg PO BID Qty: 180 3RF simvastatin 20 mg tablet 20 mg PO BEDTIME Qty: 90 3RF tramadol 50 mg tablet 100 mg PO TID PRN (Reason: Pain) Qty: 180 5RF escitalopram oxalate 10 mg tablet 10 mg PO QAM Qty: 90 1RF clopidogrel 75 mg tablet 75 mg PO QAM Qty: 90 3RF (DME) ReliOn Prime Test Strips Strip See Rx Instructions .ROUTE .COMPLEX Qty: 100 4RF Dose Instruction: USE 1 TEST STRIP TO BLOOD SUGARS DAILY FOR DIABETES MELLITUS DX E11.9 Rx Instructions: USE 1 TEST STRIP TO BLOOD SUGARS DAILY FOR DIABETES MELLITUS DX E11.9 glyburide 5 mg tablet 5 mg PO QAM Qty: 90 3RF Rx Instructions: take prior to first meal of the day Lasix 40 mg tablet 40 mg PO BID 90 Days Qty: 180 3RF metolazone 2.5 mg tablet 2.5 mg PO DAILY Qty: 14 0RF potassium chloride 20 mEq tablet extended release 20 meq PO DAILY Qty: 90 3RF Centrum Silver Men 300-600-300 mcg Tablet 1 tab PO QAM zinc 50 mg Tablet 50 mg PO QAM ascorbic acid (vitamin C) [Vitamin C] 1,000 mg Tablet 1,000 mg PO QAM cyanocobalamin (vitamin B-12) [Vitamin B-12] 1,000 mcg Tablet 1,000 mcg PO QAM spironolactone 25 mg tablet 12.5 mg PO DAILY metformin 500 mg tablet extended release 24 hr 1,000 mg PO BID Eliquis 5 mg tablet 5 mg PO BID amiodarone 400 mg tablet 400 mg PO DAILY albuterol sulfate 90 mcg/actuation HFA aerosol inhaler 2 puff inhalation QID PRN (Reason: Shortness Of Breath) Referrals: Dontrell,Teodoro F, DO [Primary Care Provider] - Coding Level of Care Code ED Manager Product for [facility]
[2024-05-29 10:16] LABS: Basophils # 0.1 10^3/uL (0.0-0.1); Eosinophils # 0.2 10^3/uL (0.0-0.8); Eosinophils % 2.4 %; Hematocrit 37.1 % (37-53); Lymphocytes # 0.9 10^3/uL (0.8-4.8); Lymphocytes % 10.3 %; Mean Corpuscular HGB Conc 28.8 g/dL (30-55); Mean Corpuscular Hemoglobin 21.9 pg (27-33); Mean Platelet Volume 9.3 fL (7.4-10.4); Monocytes # 0.7 10^3/uL (0.2-0.9); Monocytes % 7.5 %; Neutrophils % 78.5 %; Nucleated Red Blood Cells % 0 %; Platelet Count 372 10^3/cmm (157-399); Red Blood Count 4.88 10^6/uL (3.85-5.65); White Blood Count 8.67 10^3/uL (3.29-11.43)
[2024-05-29 10:30] LABS: Troponin(5th) Baseline 47 ng/L (0-15)
[2024-05-29 10:34] LABS: Alanine Aminotransferase 11 U/L (0-41); Albumin Level 4.5 g/dL (3.5-5.2); Alkaline Phosphatase 92 U/L (40-130); Anion Gap 20.8 (5-19); Aspartate Amino Transferase 17 U/L (0-40); Blood Urea Nitrogen 36 mg/dL (8-23); Calcium 9.2 mg/dL (8.5-10.5); Carbon Dioxide 25 mmol/L (22-29); Chloride 93 mmol/L (98-107); Creatinine Clr Calc Pharmacy 38.4972; Globulin 2.7 g/dL (1.3-4.6); Glomerular Filtration Rate 28.4 mL/min (90-130); Glucose 245 mg/dL (65-115); Osmolality Calculated 292 mOsm/kg (285-295); Potassium 5.8 mmol/L (3.5-5.1); Sodium 133 mmol/L (136-145); Total Bilirubin 0.6 mg/dL (0.15-1.2); Total Protein 7.2 g/dL (6.6-8.7)
[2024-05-29] MEDS: sodium chloride 0.9% 1,000 ML 999 ML IV (11:13)
[2024-05-29] MEDS: albuterol 2.5 mg/3 mL Neb 10 MG INHALATION (11:14)
[2024-05-29] MEDS: calcium chloride 10% Syr 10 mL 1 GM IVP (11:15)
[2024-05-29] MEDS: sodium polystyrene sulfonate 15 gm/60 mL Btl PO (11:15)
[2024-05-29] MEDS: insulin regular-human 100 units/1 mL 10 UNIT IVP (11:15)
--- NOTE | 2024-05-29 11:30 | PM.HP ---
Providers/Chief Complaint Admitting Physician: Franklyn Rodriguez MD Primary Care Provider: Teodoro Jon DO Chief Complaint: chest pain, feel like passing out History of Present Illness Dwayne Salinas is a 68 year old male presenting to the hospital feeling like he is going to pass out. He has past history of coronary disease, CHF with last EF around 50%, A-fib for which she recently started amiodarone yesterday. Symptoms of feeling like he was going to pass out have been going on for the last several days. Recently diuretic was increased, metolazone added, and potassium added. 16 pound weight loss in the last week. Prior to this he was short of breath, and felt some abdominal distention which was thought to be consistent with acute congestive heart failure decompensation. He is followed here by cardiology, and [place] for electrophysiology. He denies any recent fever, significant cough, lower extremity edema. He reports he had been short of breath previously, for at least the last month. Diuresing, has improved his shortness of breath. No blood in stool, or black or tarry stools. In the emergency department a liter of fluid has been ordered, calcium chloride, albuterol, insulin, Kayexalate. Review of Systems General: Reports: 10 or more systems reviewed and unremarkable except in HPI and below Card: Reports: chest pain and dyspnea on exertion; Denies: swelling of feet/ankles Resp: Reports: dyspnea; Denies: productive cough GI: Reports: nausea; Denies: abdominal pain, vomiting, hematochezia or melena Medications/Allergies Home Medications Medication Instructions Recorded Confirmed Last Taken Type acetaminophen 500 mg tablet 1,000 mg PO TID PRN Pain 09/17/19 05/29/24 05/28/24 History (Tylenol Extra Strength) cholecalciferol (vitamin D3) 50 2,000 unit PO QAM 09/17/19 05/29/24 05/29/24 History mcg (2,000 unit) tablet [id number]-[id number] 300 mcg-K 60 1 tab PO QAM 09/19/19 05/29/24 05/28/24 History mcg-lycop 600 mcg-lutein 300 mcg tablet (Centrum Silver Men) ascorbic acid (vitamin C) 1,000 mg 1,000 mg PO QAM 04/19/22 05/29/24 05/29/24 History tablet (Vitamin C) cyanocobalamin (vitamin B-12) 1,000 mcg PO QAM 04/19/22 05/29/24 05/29/24 History 1,000 mcg tablet (Vitamin B-12) zinc 50 mg tablet 50 mg PO QAM 04/19/22 05/29/24 11/21/22 History albuterol sulfate 90 mcg/actuation 2 puff inhalation QID PRN 11/21/22 05/29/24 05/28/24 History aerosol inhaler Shortness Of Breath carvedilol 25 mg tablet See Rx Instructions .Route 05/29/23 05/29/24 Unknown Rx .COMPLEX #135 tabs nitroglycerin 0.4 mg sublingual 0.4 mg sublingual Q5M PRN Chest 08/23/23 05/29/24 Unknown Rx tablet (Nitrostat) Pain #25 tabs omeprazole 20 mg capsule,delayed 20 mg PO BID #180 caps 10/05/23 05/29/24 05/29/24 Rx release simvastatin 20 mg tablet 20 mg PO BEDTIME #90 tabs 10/05/23 05/29/24 05/29/24 Rx ranolazine 500 mg tablet,extended 500 mg PO BID #180 tabs 11/07/23 05/29/24 05/29/24 Rx release,12 hr sacubitril 49 mg-valsartan 51 mg 1 tab PO BID #180 tabs 11/07/23 05/29/24 05/29/24 Rx tablet (Entresto) tramadol 50 mg tablet 100 mg (2 x 50 mg) PO TID PRN Pain 11/27/23 05/29/24 05/29/24 Rx #180 tabs tadalafil 5 mg tablet 5 mg PO DAILY Ed, prostate heatlh 12/25/23 05/29/24 Unknown Rx #30 tabs escitalopram oxalate 10 mg tablet 10 mg PO QAM #90 tabs 01/01/24 05/29/24 05/29/24 Rx clopidogrel 75 mg tablet 75 mg PO QAM #90 tabs 01/05/24 05/29/24 05/29/24 Rx blood sugar diagnostic (ReliOn #100 ea 02/05/24 05/29/24 Unknown Rx Prime Test Strips) glyburide 5 mg tablet 5 mg PO QAM #90 tabs 04/01/24 05/29/24 05/29/24 Rx furosemide 40 mg tablet (Lasix) 40 mg PO BID 90 days #180 tabs 05/23/24 05/29/24 05/29/24 Rx metolazone 2.5 mg tablet 2.5 mg PO DAILY #14 tabs 05/23/24 05/29/24 05/29/24 Rx potassium chloride 20 mEq 20 meq PO DAILY #90 tabs 05/23/24 05/29/24 05/29/24 Rx tablet,extended release amiodarone 400 mg tablet 400 mg PO DAILY 05/29/24 05/29/24 05/29/24 History apixaban 5 mg tablet (Eliquis) 5 mg PO BID 05/29/24 05/29/24 05/29/24 History metformin 500 mg tablet,extended 1,000 mg PO BID 05/29/24 05/29/24 05/29/24 History release 24 hr spironolactone 25 mg tablet 12.5 mg PO DAILY 05/29/24 05/29/24 05/29/24 History Allergies Allergy/AdvReac Type Severity Reaction Status Date / Time penicillin G Allergy HIVES Verified 05/27/24 09:41 Penicillins Allergy ALGY-Hives Verified 05/27/24 09:41 propoxyphene Allergy VERY SHORT Verified 05/27/24 09:41 [From [place]] OF BREATH PFSH Acute PFSH: Medical History Anticoagulation adequate with anticoagulant therapy Atrial fibrillation with controlled ventricular rate Systolic congestive heart failure last echo 11/2022- LVEF 52%, trace MR. Type 2 diabetes mellitus, without long-term current use of insulin Adult-onset obesity GERD (gastroesophageal reflux disease) Anxiety PAD (peripheral artery disease) Ischemic cardiomyopathy Hypertension Hyperlipidemia CAD (coronary artery disease) Surgical History History of surgery on extremity 12/28/2014: Right groin and femoral artery exploration and primary repair of right femoral artery catheterization site History of carpal tunnel release History of femoropopliteal bypass Left common femoral artery bypass surgery performed by Dr. Carrillo on 12/15/2014 History of umbilical hernia repair History of cholecystectomy History of cardiac radiofrequency ablation S/P CABG x 3 GOMEZ to LAD, SVG to OM1, SVG to PDA Coronary angioplasty status 04/25/15: balloon angioplasty to PDA and PLB, GOMEZ to LAD patent, SVG to OM 1 patent, SVG to PDA patent. Prox RCA 60% stenosis. Family History Brother CAD (coronary artery disease) Diabetes Hyperlipidemia Hypertension Mother CAD (coronary artery disease) Cancer Diabetes Hyperlipidemia Hypertension Grandfather Cancer Father Diabetes Hyperlipidemia Hypertension Denies family history of Clotting disorder Dementia Psychiatric illness Chronic kidney disease (CKD) Suicide Anesthesia complication Bleeding disorder Family history of premature coronary artery disease Lung disease Stroke Social History Smoking and tobacco/nicotine status: former use of tobacco/nicotine Alcohol intake: never Substance/Drug Use: never Vitals/I&O/Wt Last Vital Signs Temp 98.3 F 05/29/24 09:25 Pulse 55 L 05/29/24 11:16 Resp 18 05/29/24 11:16 BP 110/56 05/29/24 11:07 Pulse Ox 95 05/29/24 11:16 O2 Del Method Room Air 05/29/24 11:16 Weight last 48 hrs Weight 108.409 kg Physical Exam Narrative: General Exam is a white male, no distress. Reports he is not nauseated currently, and does not have chest discomfort currently HEENT: Atraumatic normocephalic. Oropharynx clear Neck is supple no lymphadenopathy thyromegaly Cardiovascular regular, no murmur. Appears to be currently paced Lungs clear no crackles Abdomen is soft nontender positive bowel sounds. No obvious organomegaly exams deferred Extremities no sinus clubbing edema, cap refill brisk Skin no rash Neuro no obvious focal deficits. Data 05/29/24 10:01 05/29/24 10:01 Other Labs: EKG demonstrates a paced ventricular rhythm, rate of 64 by my read Chest x-ray shows cardiomegaly, previous coronary bypass grafting, pacemaker/defibrillator, no infiltrate by my read I have ordered an iron TIBC ferritin LFTs are normal Calcium and albumin are normal Urinalysis is ordered Fecal occult blood test is ordered Last echo 12/04 demonstrated EF of 50% A&P Assessment and plan (1) Acute kidney injury: Check urinalysis Bladder scan Hydration with 1 L Repeat BMP in 4 hours Avoid renal toxic medication Holding diuretics BMP daily Check CK (2) Hyperkalemia: Treatment with calcium, insulin and glucose, Kayexalate, albuterol already instituted in the ER Fluids 1 L being given. After that 50 cc an hour of NS, 1 L ordered, then reassess Repeat potassium in approximately 4 hours. Hold metformin, potassium, Entresto, Aldactone, Lasix, metolazone (3) Anemia: Patient with anemia Protonix 40 mg daily Stool Hemoccult Iron and TIBC, ferritin CBC tomorrow (4) Dyspnea: Patient with dyspnea, at least over the last month Concern this was attributed to congestive heart failure, versus ischemic heart disease Could be multifactorial considering anemia, some renal dysfunction Monitor for improvement after rehydration (5) Atrial fibrillation with controlled ventricular rate: Patient with history of persistent atrial fibrillation. 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 Continue amiodarone 400 mg daily. Check magnesium Check TSH Cardiology consultation (6) Systolic congestive heart failure: Patient with history of systolic heart failure, last EF around 50% No reason currently for repeat echo Currently compensated. Adding fluid back secondary to dehydration. (7) Type 2 diabetes mellitus, without long-term current use of insulin: Consistent carb diet Insulin sliding scale, mild Plan Coronary artery disease. Continue Plavix, statin Multiple other medical problems as outlined by past medical history Full code Eliquis will suffice for DVT prophylaxis Attestations Medical Necessity Statement*: Will need greater than 2 midnight stay for evaluation and treatment of acute dehydration with hyperkalemia, anemia, pre-existing dyspnea and low EF. Diagnoses Acute kidney injury N17.9 Hyperkalemia E87.5 Anemia D64.9 Dyspnea R06.00 Atrial fibrillation with controlled ventricular rate I48.91 Systolic congestive heart failure I50.20 Type 2 diabetes mellitus, without long-term current use of insulin E11.9 Time Spent (min) 57
[2024-05-29 11:41] LABS: Ferritin 18 ng/mL (30-400); Iron 42 ug/dL (59-158); Magnesium 2.2 mg/dL (1.7-2.3); Percent Saturation 7.8 % (20-50); Total Iron Binding Capacity 532 mcg/dl; Unsaturated Iron Binding 490 ug/dL (112-347)
--- NOTE | 2024-05-29 11:45 | ECG_ITS ---
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 Measurements Intervals [place] Rate: 57 P: 27 IN: 277 QRS: 48 QRSD: 100 T: 236 QT: 426 QTc: 417 Interpretive Statements SINUS BRADYCARDIA WITH FIRST DEGREE AV BLOCK NONSPECIFIC ST & T-WAVE ABNORMALITY Compared to ECG 05/29/2024 09:18:31 First degree AV block now present T-wave abnormality now present Ventricular-paced complex(es) or rhythm no longer present Electronically Signed On 05-30-2024 01:08:34 CDT by Glory Simpson M.D. [email or web address]
--- NOTE | 2024-05-29 12:21 | PC.NURSE ---
Dr. Rodriguez notified of bladder scan results, per Dr. Rodriguez to bladder scan pt again upon arrival to unit, not to cath for urine sample at this time.
[2024-05-29 13:05] LABS: Creatine Phosphokinase 68 U/L (39-308)
[2024-05-29 13:14] LABS: Thyroid Stimulating Hormone 1.15 uIU/mL (0.27-4.20)
[2024-05-29] MEDS: sodium chloride 0.9% 1,000 ML 50 ML IV (15:12)
[2024-05-29 15:18] LABS: Glucose Point of Care 101 mg/dL (70-110)
[2024-05-29 15:26] LABS: Bilirubin Urine Negative (Negative); Blood Urine Negative (Negative); Glucose Urine UA Negative (Normal); Ketones Urine Negative (Negative); Leukocyte Esterase Urine Negative (Negative); Nitrate Urine Negative (Negative); Protein Urine Negative (Negative); Specific Gravity, Urine 1.015 (1.005-1.030); Urine Appearance Clear (CLEAR); Urine Color Yellow (Yellow)
[2024-05-29 15:34] LABS: Add Urine Microscopic? YES; Bacteria Urine None Seen /hpf; Hyaline Casts Urine 23.57 /lpf; RBC Urine 0-2 /hpf (0-2); Squamous Epithelial Cell Urine 0-5 /hpf (0-5); WBC Urine 0-5 /hpf (0-5)
--- NOTE | 2024-05-29 15:44 | PC.NURSE ---
Per Dr. Rodriguez, verbal order to give 250mL bolus from newly hung bag of NS. Monitor for SOB and fluid overload. Also monitor for urinary retention. 276mL in bladder after bladder scan currently.
--- NOTE | 2024-05-29 16:05 | ECG_ITS ---
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 Measurements Intervals [place] Rate: 58 P: 0 ND: 0 QRS: 60 QRSD: 125 T: -88 QT: 442 QTc: 436 Interpretive Statements ATRIAL FLUTTER/TACHYCARDIA WITH SLOW VENTRICULAR RESPONSE MODERATE INTRAVENTRICULAR CONDUCTION DELAY [110+ ms QRS DURATION] ST DEVIATION AND MODERATE T-WAVE ABNORMALITY, CONSIDER INFERIOR ISCHEMIA [-0.1+ mV T-WAVE IN II/aVF] Compared to ECG 05/29/2024 11:45:21 Intraventricular conduction delay now present Possible ischemia now present Sinus bradycardia no longer present First degree AV block no longer present T-wave abnormality still present Electronically Signed On 05-30-2024 01:09:09 CDT by Glory Simpson M.D. [id number]
[2024-05-29 16:21] LABS: Add Urine Culture? No
[2024-05-29 16:36] LABS: Anion Gap 18.8 (5-19); Blood Urea Nitrogen 35 mg/dL (8-23); Calcium 9.4 mg/dL (8.5-10.5); Carbon Dioxide 23 mmol/L (22-29); Chloride 97 mmol/L (98-107); Creatinine Clr Calc Pharmacy 52.0845; Glomerular Filtration Rate 40.3 mL/min (90-130); Glucose 105 mg/dL (65-115); Osmolality Calculated 286 mOsm/kg (285-295); Potassium 4.8 mmol/L (3.5-5.1); Sodium 134 mmol/L (136-145)
[2024-05-29] MEDS: apixaban 5 mg Tablet PO (17:08)
[2024-05-29] MEDS: ranolazine (12HR) 500 mg Tablet PO (17:08)
[2024-05-29] MEDS: pantoprazole DR 40 mg Tablet PO (17:09)
[2024-05-29 17:11] LABS: Glucose Point of Care 109 mg/dL (70-110)
[2024-05-29] MEDS: iron sucrose 200 MG in sodium chloride 0.9% (100 ml) 100 ML 220 MG IV (18:58)
[2024-05-29 21:02] LABS: Glucose Point of Care 164 mg/dL (70-110)
[2024-05-29] MEDS: insulin lispro 100 unit/1 mL SUBCUT (21:47)
[2024-05-29] MEDS: carvedilol 12.5 mg Tablet PO (21:48)
[2024-05-29] MEDS: atorvastatin 40 mg Tablet 20 MG PO (21:48)
[2024-05-30] VITALS (7 sets, daily range): BP systolic 116–145; BP diastolic 62–68; PULSE 67–74; RESP 24–28; TEMP 36.6–36.9; O2SAT 90–96
[2024-05-30] MEDS: escitalopram 10 mg Tablet PO (05:04)
[2024-05-30] MEDS: clopidogrel 75 mg Tablet PO (05:04)
[2024-05-30 05:44] LABS: Basophils # 0.1 10^3/uL (0.0-0.1); Eosinophils # 0.3 10^3/uL (0.0-0.8); Eosinophils % 4.1 %; Hematocrit 35.9 % (37-53); Lymphocytes # 1.4 10^3/uL (0.8-4.8); Lymphocytes % 18.1 %; Mean Corpuscular HGB Conc 28.7 g/dL (30-55); Mean Corpuscular Hemoglobin 21.6 pg (27-33); Mean Corpuscular Volume 75.3 fl (82-101); Monocytes # 0.9 10^3/uL (0.2-0.9); Monocytes % 11.5 %; Neutrophils # 5.02 10^3/uL (1.8-7.7); Nucleated Red Blood Cells % 0 %; Platelet Count 325 10^3/cmm (157-399); Red Blood Count 4.77 10^6/uL (3.85-5.65); Red Cell Distribution Width 16.8 % (12.1-15.1); White Blood Count 7.73 10^3/uL (3.29-11.43)
[2024-05-30 06:08] LABS: Alanine Aminotransferase 10 U/L (0-41); Albumin Level 4.3 g/dL (3.5-5.2); Alkaline Phosphatase 87 U/L (40-130); Anion Gap 16.7 (5-19); Aspartate Amino Transferase 20 U/L (0-40); Blood Urea Nitrogen 27 mg/dL (8-23); Calcium 8.7 mg/dL (8.5-10.5); Carbon Dioxide 27 mmol/L (22-29); Chloride 99 mmol/L (98-107); Creatinine Clr Calc Pharmacy 63.2454; Globulin 2.8 g/dL (1.3-4.6); Glomerular Filtration Rate 50.4 mL/min (90-130); Glucose 154 mg/dL (65-115); Osmolality Calculated 294 mOsm/kg (285-295); Potassium 4.7 mmol/L (3.5-5.1); Sodium 138 mmol/L (136-145); Total Bilirubin 0.7 mg/dL (0.15-1.2); Total Protein 7.1 g/dL (6.6-8.7)
[2024-05-30 06:26] LABS: Glucose Point of Care 132 mg/dL (70-110)
--- NOTE | 2024-05-30 07:45 | PM.CONSULT ---
Providers/Reason For Consult Consulting Physician/Specialty*: Patrick Moody MD/Cardiology Reason for Consult*: Congestive heart failure/DIGNA Attending Physician: Franklyn Rodriguez MD Primary Care Provider: Teodoro Jon DO History of Present Illness History of Present Illness Dwayne Salinas is a 68 year old male with past medical history of atrial fibrillation, CAD, CHF who was recently seen in office and was volume overloaded. Diuretic therapy was uptitrated. He had overdiuresis and has DIGNA now. After holding diuretics and with fluids and function has improved significantly. He is feeling better. Shortness of breath has improved. He is following with the EP service at [facility] and was recently placed on amiodarone 400 mg twice daily. Review of Systems General: Reports: 10 or more systems reviewed and unremarkable except in HPI and below Medications/Allergies Home Medications Medication Instructions Recorded Confirmed Last Taken Type acetaminophen 500 mg tablet 1,000 mg PO TID PRN Pain 09/17/19 05/29/24 05/28/24 History (Tylenol Extra Strength) cholecalciferol (vitamin D3) 50 2,000 unit PO QAM 09/17/19 05/29/24 05/29/24 History mcg (2,000 unit) tablet [id number]-iv-rekta 300 mcg-K 60 1 tab PO QAM 09/19/19 05/29/24 05/28/24 History mcg-lycop 600 mcg-lutein 300 mcg tablet (Centrum Silver Men) ascorbic acid (vitamin C) 1,000 mg 1,000 mg PO QAM 04/19/22 05/29/24 05/29/24 History tablet (Vitamin C) cyanocobalamin (vitamin B-12) 1,000 mcg PO QAM 04/19/22 05/29/24 05/29/24 History 1,000 mcg tablet (Vitamin B-12) zinc 50 mg tablet 50 mg PO QAM 04/19/22 05/29/24 11/21/22 History albuterol sulfate 90 mcg/actuation 2 puff inhalation QID PRN 11/21/22 05/29/24 05/28/24 History aerosol inhaler Shortness Of Breath carvedilol 25 mg tablet See Rx Instructions .Route 05/29/23 05/29/24 Unknown Rx .COMPLEX #135 tabs nitroglycerin 0.4 mg sublingual 0.4 mg sublingual Q5M PRN Chest 08/23/23 05/29/24 Unknown Rx tablet (Nitrostat) Pain #25 tabs omeprazole 20 mg capsule,delayed 20 mg PO BID #180 caps 10/05/23 05/29/24 05/29/24 Rx release simvastatin 20 mg tablet 20 mg PO BEDTIME #90 tabs 10/05/23 05/29/24 05/29/24 Rx ranolazine 500 mg tablet,extended 500 mg PO BID #180 tabs 11/07/23 05/29/24 05/29/24 Rx release,12 hr sacubitril 49 mg-valsartan 51 mg 1 tab PO BID #180 tabs 11/07/23 05/29/24 05/29/24 Rx tablet (Entresto) tramadol 50 mg tablet 100 mg (2 x 50 mg) PO TID PRN Pain 11/27/23 05/29/24 05/29/24 Rx #180 tabs tadalafil 5 mg tablet 5 mg PO DAILY Ed, prostate heatlh 12/25/23 05/29/24 Unknown Rx #30 tabs escitalopram oxalate 10 mg tablet 10 mg PO QAM #90 tabs 01/01/24 05/29/24 05/29/24 Rx clopidogrel 75 mg tablet 75 mg PO QAM #90 tabs 01/05/24 05/29/24 05/29/24 Rx blood sugar diagnostic (ReliOn #100 ea 02/05/24 05/29/24 Unknown Rx Prime Test Strips) glyburide 5 mg tablet 5 mg PO QAM #90 tabs 04/01/24 05/29/24 05/29/24 Rx amiodarone 400 mg tablet 400 mg PO DAILY 05/29/24 05/29/24 05/29/24 History apixaban 5 mg tablet (Eliquis) 5 mg PO BID 05/29/24 05/29/24 05/29/24 History metformin 500 mg tablet,extended 1,000 mg PO BID 05/29/24 05/29/24 05/29/24 History release 24 hr furosemide 40 mg tablet (Lasix) 40 mg PO DAILY 90 days #180 tabs 05/30/24 05/29/24 05/29/24 Rx Allergies Allergy/AdvReac Type Severity Reaction Status Date / Time penicillin G Allergy HIVES Verified 05/27/24 09:41 Penicillins Allergy ALGY-Hives Verified 05/27/24 09:41 propoxyphene Allergy VERY SHORT Verified 05/27/24 09:41 [From [place]] OF BREATH Current Medications Generic Name Dose Route Start Last Admin Trade Name Marlyn PRN Reason Stop Dose Admin Apixaban 5 mg 05/29/24 18:00 05/29/24 17:08 Apixaban 5 Mg Tablet PO 5 mg BID NELIDA Administration Atorvastatin Calcium 20 mg 05/29/24 21:00 05/29/24 21:48 Atorvastatin 40 Mg Tablet PO 20 mg BEDTIME NELIDA Administration Carvedilol 12.5 mg 05/29/24 21:00 05/29/24 21:48 Carvedilol 12.5 Mg Tablet PO 12.5 mg BEDTIME NELIDA Administration Clopidogrel Bisulfate 75 mg 05/30/24 06:00 05/30/24 05:04 Clopidogrel 75 Mg Tablet PO 75 mg QAM NELIDA Administration Escitalopram Oxalate 10 mg 05/30/24 06:00 05/30/24 05:04 Escitalopram 10 Mg Tablet PO 10 mg QAM NELIDA Administration Sodium Chloride 1,000 mls @ 50 mls/hr 05/29/24 14:37 05/30/24 05:05 Sodium Chloride 0.9% IV 05/30/24 10:36 Infused .Q20H NELIDA Infusion Insulin Human Lispro 0 unit 05/29/24 14:37 05/30/24 06:59 Insulin Lispro 100 Unit/1 Ml SUBCUT Not Given WM&BEDTIME NELIDA Protocol Pantoprazole Sodium 40 mg 05/29/24 18:00 05/29/24 17:[address] 40 Mg Tablet PO 40 mg BID NELIDA Administration Ranolazine 500 mg 05/29/24 18:00 05/29/24 17:08 Ranolazine (12hr) 500 Mg Tablet PO 500 mg BID NELIDA Administration PFSH Acute PFSH: Medical History Anticoagulation adequate with anticoagulant therapy Atrial fibrillation with controlled ventricular rate Systolic congestive heart failure last echo 11/2022- LVEF 52%, trace MR. Type 2 diabetes mellitus, without long-term current use of insulin Adult-onset obesity GERD (gastroesophageal reflux disease) Anxiety PAD (peripheral artery disease) Ischemic cardiomyopathy Hypertension Hyperlipidemia CAD (coronary artery disease) Surgical History History of surgery on extremity 12/28/2014: Right groin and femoral artery exploration and primary repair of right femoral artery catheterization site History of carpal tunnel release History of femoropopliteal bypass Left common femoral artery bypass surgery performed by Dr. Carrillo on 12/15/2014 History of umbilical hernia repair History of cholecystectomy History of cardiac radiofrequency ablation S/P CABG x 3 GOMEZ to LAD, SVG to OM1, SVG to PDA Coronary angioplasty status 04/25/15: balloon angioplasty to PDA and PLB, GOMEZ to LAD patent, SVG to OM 1 patent, SVG to PDA patent. Prox RCA 60% stenosis. Family History Brother CAD (coronary artery disease) Diabetes Hyperlipidemia Hypertension Mother CAD (coronary artery disease) Cancer Diabetes Hyperlipidemia Hypertension Grandfather Cancer Father Diabetes Hyperlipidemia Hypertension Denies family history of Clotting disorder Dementia Psychiatric illness Chronic kidney disease (CKD) Suicide Anesthesia complication Bleeding disorder Family history of premature coronary artery disease Lung disease Stroke Social History Smoking and tobacco/nicotine status: former use of tobacco/nicotine Alcohol intake: never Substance/Drug Use: never Vitals/I&O/Wt Last Vital Signs Temp 97.9 F 05/30/24 04:52 Pulse 74 05/30/24 06:00 Resp 25 H 05/30/24 04:00 BP 116/62 05/30/24 04:00 Pulse Ox 95 05/30/24 04:00 O2 Del Method Room Air 05/30/24 04:00 05/29/24 05/30/24 05/30/24 22:59 06:59 14:59 Intake Total 610 / 1610 700 / 2310 Output Total 400 / 400 850 / 1250 Balance 210 / 1210 -150 / 1060 Weight last 48 hrs Weight 239 lb Weight 239 lb Physical Exam Narrative: GENERAL: Patient is alert, awake and oriented x3. [] NECK: No jugular vein distension. [] HEENT: No cyanosis. No icterus. No pallor. [] HEART: Regular rate and rhythm LUNGS: Clear to auscultate bilaterally. [] CENTRAL NERVOUS SYSTEM: Grossly nonfocal. [] EXTREMITIES: Lower extremities with no edema bilaterally. Data 05/30/24 05:20 05/30/24 05:20 A&P Assessment and plan (1) CAD (coronary artery disease): (2) Hypertension: (3) Hyperlipidemia: Qualifiers: Hyperlipidemia type: other hyperlipidemia Qualified Code(s): E78.49 - Other hyperlipidemia (4) S/P CABG x 3: (5) Carotid stenosis: (6) Atrial fibrillation with controlled ventricular rate: (7) Acute kidney injury: Plan Patient is doing better with improving creatinine. Downtitrate lasix to 40mg daily PO at time of discharge. Outpatient BMP in 3-4 days Thank you for involving us with care of this patient. Patient is stable to be discharged from cardiology standpoint. Please call with questions. Consult Attestations Medical Necessity Statement: Care expected to cross 2 midnights. Coding Level of Care Code Acute Code for [facility] Diagnoses Coronary artery disease of tangirnaq artery of tangirnaq heart with stable angina pectoris I25.10 Essential hypertension I10 Other hyperlipidemia E78.49 Hyperlipidemia type: other hyperlipidemia S/P CABG x 3 Z95.1 Carotid stenosis I65.29 Atrial fibrillation with controlled ventricular rate I48.91 Acute kidney injury N17.9
[2024-05-30] MEDS: amiodarone 200 mg Tablet 400 MG PO (08:20)
[2024-05-30] MEDS: carvedilol 25 mg Tablet PO (08:20)
[2024-05-30] MEDS: pantoprazole DR 40 mg Tablet PO (08:20)
[2024-05-30] MEDS: apixaban 5 mg Tablet PO (08:20)
[2024-05-30] MEDS: ranolazine (12HR) 500 mg Tablet PO (08:21)
[2024-05-30] MEDS: iron sucrose 200 MG in sodium chloride 0.9% (100 ml) 100 ML 220 MG IV (08:55)
--- NOTE | 2024-05-30 09:18 | PM.DCS ---
Discharge Providers Date of Admission: 05/29/24 13:18 Date of Discharge: May 30, 2024 Attending Provider at Admission: Franklyn Rodriguez MD Attending Provider at Discharge: Franklyn Rodriguez MD Primary Care Provider: Teodoro Jon DO Diagnoses at Discharge Discharge Diagnosis (1) Acute kidney injury: Status: Acute (2) Hyperkalemia: Status: Acute (3) Anemia: Status: Acute (4) Dyspnea: Status: Acute (5) Atrial fibrillation with controlled ventricular rate: Status: Acute (6) Systolic congestive heart failure: Status: Acute Permanent problem details: last echo 11/2022- LVEF 52%, trace MRMark (7) Type 2 diabetes mellitus, without long-term current use of insulin: Status: Acute Reason for Visit Reason for Visit: chest pain, feel like passing out Hospital Course Hospital Course Dwayne is a 68-year-old white male with history of systolic heart failure, who recently had diuretics increased. He presented with dizziness, weight loss, and was found to have acute kidney injury. He was admitted and received IV fluids cautiously, and had a repeat creatinine of 1.4 the next day. His symptomatology of discomfort in the chest, shortness of breath, dizziness all went away. He was significantly hyperkalemic on admission, and this resolved with hydration and treatment with Kayexalate, and holding renal toxic medication. He was found to be anemic, microcytic, and he was transfused iron. This will need to be followed up as an outpatient. He improved quicker than expected, and was able to discharge on 05/30 with a creatinine of 1.4. He will resume Lasix 40 mg once daily tomorrow. He will stop his potassium, Aldactone, metolazone. He will continue his amiodarone per instructions by the switchboard and control room operator. He will have a BMP on Monday. He can resume his Entresto tomorrow. He was able to ask questions and agreed with the plan. Physical Exam Narrative: General Exam no distress Neck is supple Cardiovascular regular rate and rhythm Lungs clear Abdomen soft Extremities no sinus clubbing or edema Discharge Data Studies Completed and Pending Completed Studies During Hospitalization Category Date Time Status XR chest 1V portable [id number] Stat Exams 05/29/24 09:16 Completed Pending at discharge Category Date Time Status Fecal Occult Blood [Immunochemical Fecal OCB] Routine Lab 05/29/24 11:07 Uncollected Radiology Impressions Chest X-Ray 05/29/24 09:16 IMPRESSION: No acute cardiopulmonary findings. Laboratory Results WBC 7.73 10^3/uL (3.29-11.43) 05/30/24 05:20 RBC 4.77 10^6/uL (3.85-5.65) 05/30/24 05:20 Hgb 10.30 g/dL (11.27-16.99) L 05/30/24 05:20 Hct 35.9 % (37-53) L 05/30/24 05:20 MCV 75.3 fl (82-101) L 05/30/24 05:20 MCH 21.6 pg (27-33) L 05/30/24 05:20 MCHC 28.7 g/dL (30-55) L 05/30/24 05:20 RDW 16.8 % (12.1-15.1) H 05/30/24 05:20 Plt Count 325 10^3/cmm (157-399) 05/30/24 05:20 MPV 9.0 fL (7.4-10.4) 05/30/24 05:20 Neut % (Auto) 65.0 % 05/30/24 05:20 Lymph % (Auto) 18.1 % 05/30/24 05:20 Island % (Auto) 11.5 % 05/30/24 05:20 Eos % (Auto) 4.1 % 05/30/24 05:20 Baso % (Auto) 1.0 % 05/30/24 05:20 Neut # (Auto) 5.02 10^3/uL (1.8-7.7) 05/30/24 05:20 Lymph # (Auto) 1.4 10^3/uL (0.8-4.8) 05/30/24 05:20 Island # (Auto) 0.9 10^3/uL (0.2-0.9) 05/30/24 05:20 Eos # (Auto) 0.3 10^3/uL (0.0-0.8) 05/30/24 05:20 Baso # (Auto) 0.1 10^3/uL (0.0-0.1) 05/30/24 05:20 Nucleated RBC % (auto) 0 % 05/30/24 05:20 Nucleated RBCs # 0.0 /100WBC 05/30/24 05:20 Sodium 138 mmol/L (136-145) 05/30/24 05:20 Potassium 4.7 mmol/L (3.5-5.1) 05/30/24 05:20 Chloride 99 mmol/L (98-107) 05/30/24 05:20 Carbon Dioxide 27 mmol/L (22-29) 05/30/24 05:20 Anion Gap 16.7 (5-19) 05/30/24 05:20 BUN 27 mg/dL (8-23) H 05/30/24 05:20 Creatinine 1.4 mg/dL (0.7-1.2) H 05/30/24 05:20 GFR Calculation 50.4 mL/min (90-130) L 05/30/24 05:20 Glucose 154 mg/dL (65-115) H 05/30/24 05:20 POC Glucose 132 mg/dL (70-110) H 05/30/24 06:20 Calculated Osmolality 294 mOsm/kg (285-295) 05/30/24 05:20 Calcium 8.7 mg/dL (8.5-10.5) 05/30/24 05:20 Magnesium 2.0 mg/dL (1.7-2.3) 05/30/24 05:20 Iron 42 ug/dL (59-158) L 05/29/24 10:01 TIBC 532 mcg/dl 05/29/24 10:01 % Saturation 7.8 % (20-50) L 05/29/24 10:01 Unsat Iron Binding 490 ug/dL (112-347) H 05/29/24 10:01 Ferritin 18 ng/mL (30-400) L 05/29/24 10:01 Total Bilirubin 0.7 mg/dL (0.15-1.2) 05/30/24 05:20 AST 20 U/L (0-40) 05/30/24 05:20 ALT 10 U/L (0-41) 05/30/24 05:20 Alkaline Phosphatase 87 U/L (40-130) 05/30/24 05:20 Creatine Kinase 68 U/L (39-308) 05/29/24 12:05 Troponin T Baseline 47 ng/L (0-15) H 05/29/24 10:01 Troponin T 120 Minute 41.00 ng/L (0-15) H 05/29/24 12:05 Delta Troponin T -6.00 ABS# (0-10) L 05/29/24 12:05 Troponin T Hi Sens 6Hr 32.90 ng/L (0-15) H 05/29/24 15:40 Troponin T Hi Sens 6Hr Delta -14.10 ng/L (0-12) L 05/29/24 15:40 Total Protein 7.1 g/dL (6.6-8.7) 05/30/24 05:20 Albumin 4.3 g/dL (3.5-5.2) 05/30/24 05:20 Globulin 2.8 g/dL (1.3-4.6) 05/30/24 05:20 TSH 1.15 uIU/mL (0.27-4.20) 05/29/24 12:05 Urine Color Yellow (Yellow) 05/29/24 14:32 Urine Appearance Clear (CLEAR) 05/29/24 14:32 Urine pH 5.0 (5-7) 05/29/24 14:32 Ur Specific [place] 1.015 (1.005-1.030) 05/29/24 14:32 Urine Protein Negative (Negative) 05/29/24 14:32 Urine Glucose (UA) Negative (Normal) 05/29/24 14:32 Urine Ketones Negative (Negative) 05/29/24 14:32 Urine Blood Negative (Negative) 05/29/24 14:32 Urine Nitrate Negative (Negative) 05/29/24 14:32 Urine Bilirubin Negative (Negative) 05/29/24 14:32 Urine Urobilinogen 1.0 mg/dL (Negative) 05/29/24 14:32 Ur Leukocyte Esterase Negative (Negative) 05/29/24 14:32 Urine RBC 0-2 /hpf (0-2) 05/29/24 14:32 Urine WBC 0-5 /hpf (0-5) 05/29/24 14:32 Ur Squamous Epith Cells 0-5 /hpf (0-5) 05/29/24 14:32 Amorphous Sediment Not Reportable 05/29/24 14:32 Urine Bacteria None seen /hpf (NONE) 05/29/24 14:32 Hyaline Casts 23.57 /lpf 05/29/24 14:32 Vitals Last Vital Signs Temp 98.3 F 05/30/24 07:59 Pulse 74 05/30/24 07:59 Resp 25 H 05/30/24 07:59 BP 145/68 05/30/24 07:59 Pulse Ox 96 05/30/24 07:59 O2 Del Method Nasal Cannula 05/30/24 07:59 Discharge Plan Discharge Patient Disposition: Home Condition: Stable Prescriptions: Continued acetaminophen [Tylenol Extra Strength] 500 mg tablet 1,000 mg PO TID PRN (Reason: Pain) Rx Instructions: takes with tramadol cholecalciferol (vitamin D3) 2,000 unit tablet 2,000 unit PO QAM carvedilol 25 mg tablet See Rx Instructions .ROUTE .COMPLEX Qty: 135 3RF Rx Instructions: take 1 tablet by mouth in the morning then 1/2 tablet in the evening ranolazine 500 mg tablet extended release 12 hr 500 mg PO BID Qty: 180 4RF Entresto 49-51 mg tablet 1 tab PO BID Qty: 180 4RF tadalafil 5 mg tablet 5 mg PO DAILY Qty: 30 3RF nitroglycerin [Nitrostat] 0.4 mg tablet, sublingual 0.4 mg SUBLINGUAL Q5M PRN (Reason: Chest Pain) Qty: 25 2RF Rx Instructions: do not exceed 3 doses per episode omeprazole 20 mg capsule,delayed release(DR/EC) 20 mg PO BID Qty: 180 3RF simvastatin 20 mg tablet 20 mg PO BEDTIME Qty: 90 3RF tramadol 50 mg tablet 100 mg PO TID PRN (Reason: Pain) Qty: 180 5RF escitalopram oxalate 10 mg tablet 10 mg PO QAM Qty: 90 1RF clopidogrel 75 mg tablet 75 mg PO QAM Qty: 90 3RF (DME) ReliOn Prime Test Strips Strip See Rx Instructions .ROUTE .COMPLEX Qty: 100 4RF Dose Instruction: USE 1 TEST STRIP TO BLOOD SUGARS DAILY FOR DIABETES MELLITUS DX E11.9 Rx Instructions: USE 1 TEST STRIP TO BLOOD SUGARS DAILY FOR DIABETES MELLITUS DX E11.9 glyburide 5 mg tablet 5 mg PO QAM Qty: 90 3RF Rx Instructions: take prior to first meal of the day Centrum Silver Men 300-600-300 mcg Tablet 1 tab PO QAM zinc 50 mg Tablet 50 mg PO QAM ascorbic acid (vitamin C) [Vitamin C] 1,000 mg Tablet 1,000 mg PO QAM cyanocobalamin (vitamin B-12) [Vitamin B-12] 1,000 mcg Tablet 1,000 mcg PO QAM metformin 500 mg tablet extended release 24 hr 1,000 mg PO BID Eliquis 5 mg tablet 5 mg PO BID amiodarone 400 mg tablet 400 mg PO DAILY albuterol sulfate 90 mcg/actuation HFA aerosol inhaler 2 puff inhalation QID PRN (Reason: Shortness Of Breath) Changed Lasix 40 mg tablet 40 mg PO DAILY 90 Days Qty: 180 3RF Discontinued metolazone 2.5 mg tablet 2.5 mg PO DAILY Qty: 14 0RF potassium chloride 20 mEq tablet extended release 20 meq PO DAILY Qty: 90 3RF spironolactone 25 mg tablet 12.5 mg PO DAILY Discharge Orders: Discharge Order (Routine); Ordered 05/30/24 Ordered By: Franklyn Rodriguez Referrals: Patrick Moody M.D [Physician] - 1 week Teodoro Jon DO [Primary Care Provider] - 4-7 days Discharge Diet: Cardiac Discharge Activity: Increase activity as tolerated Patient Instructions: Opioid Safety Activity Restrictions/Additional Instructions: Change her Lasix to once daily starting tomorrow May resume your Entresto tomorrow Discontinue metolazone, potassium, Aldactone BMP on Monday, results to Dr. Moody Return for any concerns I believe your amiodarone is 400 mg twice daily initially for the first week. Continue instructions and follow-up as arranged by your switchboard and control room operator. Discharge Attestations Time Spent in Discharge Care*: greater than 30 min Quality Metrics Clinical Quality Measures [ No reported AMI, CVA or VTE this stay] Coding Level of Care Code 05053 Total time (in minutes) for Discharge: 43 Diagnoses Acute kidney injury N17.9 Hyperkalemia E87.5 Anemia D64.9 Dyspnea R06.00 Atrial fibrillation with controlled ventricular rate I48.91 Systolic congestive heart failure I50.20 Type 2 diabetes mellitus, without long-term current use of insulin E11.9
--- NOTE | 2024-05-30 11:05 | PC.NURSE ---
Patient discharged to home. Instruction provided regarding follow up needs and medication changes. Patient verbalized complete understanding. spouse at bedside. Patient taken by wheelchair to private vehicle. No distress observed.
== END 2024-05-30 11:07 | disposition home or self-care (01) | DRG 683 ==
LOC: ER 13:11 → CSU 13:18
PROVIDERS: Admitting Provider Internal Medicine; Emergency Provider Family Medicine; PCP Family Medicine; Visit Provider Internal Medicine
DX: N17.9 Acute kidney failure, unspecified (principal); I50.22 Chronic systolic (congestive) heart failure; E87.5 Hyperkalemia; I48.91 Unspecified atrial fibrillation; I25.10 Atherosclerotic heart disease of native coronary artery without angina pectoris; I11.0 Hypertensive heart disease with heart failure; E66.9 Obesity, unspecified; E11.51 Type 2 diabetes mellitus with diabetic peripheral angiopathy without gangrene; I25.5 Ischemic cardiomyopathy; E78.49 Other hyperlipidemia; T50.2X5A Adverse effect of carbonic-anhydrase inhibitors, benzothiadiazides and other diuretics, initial encounter; D64.9 Anemia, unspecified; E86.0 Dehydration; Z68.33 Body mass index [BMI] 33.0-33.9, adult; Z79.02 Long term (current) use of antithrombotics/antiplatelets; Z79.01 Long term (current) use of anticoagulants; Z79.84 Long term (current) use of oral hypoglycemic drugs; Z95.1 Presence of aortocoronary bypass graft; Z95.5 Presence of coronary angioplasty implant and graft; Z88.0 Allergy status to penicillin; Z87.891 Personal history of nicotine dependence; Z98.890 Other specified postprocedural states
CPT/HCPCS: 36415; 36416; 51798; 71045; 80048; 80053; 81001; 82550; 82728; 82962; 83036; 83540; 83550; 83735; 84443; 84484; 85025; 93005; 94640; 96372; 96374; 96375; 99285; A9270; J1756; J1815; J3490; J7030; J7613

== ENCOUNTER → 2024-06-06 10:00 | Outpatient (BNVA) | payer MEDICARE, OTHER, SELFPAY | PROVIDERS: PCP Family Medicine; Visit Provider Family Medicine | DX: N28.9 Disorder of kidney and ureter, unspecified (principal) | CPT/HCPCS: 80048 ==

== ENCOUNTER 2024-06-12 06:29 | Outpatient (CLI) | payer MEDICARE, OTHER, SELFPAY ==
--- NOTE | 2024-06-12 06:44 | ECG_ITS ---
[employer] Test Date: 2024-06-12 Pat Name: Dwayne Salinas Department: Room: Gender: Male Blind Eyeletter: : 1955 Requested By: Patrick Moody Order Number: [id number] [place] MD: Patrick Moody M.D. Interpretive Statements LEXISCAN SESTAMIBI STRESS TEST Procedure: At the baseline, the blood pressure was 116/77 mmHg with a heart rate of 66 bpm. The electrocardiogram showed atrial flutter, normal axis with normal ST and T's. The Lexiscan was infused over a period of 20 seconds. A total of 0.4 mg of Lexiscan was infused. The stress phase was continued for a total of 5 minutes. Heart rate was at the end of stress phase was 59 bpm and a blood pressure of 113/63 mmHg. The EKG at the peak infusion revealed atrial flutter with no significant ST-T wave changes. Sestamibi was injected 20 seconds after the Lexiscan infusion. Blood pressure at the end of recovery phase was 110/62 mmHg with a heart rate of 58 bpm. Conclusion: 1. Normal EKG response to Lexiscan infusion 2. No Lexiscan induced chest pain or cardiac arrhythmia. 3. Normal blood pressure and heart rate response. 4. Sestamibi/sestamibi perfusion scan pending; see separate report. Electronically Signed On 07-17-2024 18:44:18 PUBLIC AFFAIRS MANAGER by Patrick Moody M.D. [email or web address]
[2024-06-12 06:45] VITALS: BMI 35.1
--- NOTE | 2024-06-12 06:45 | NMCV_ITS ---
NM lian perf SPECT r/s* [id number] Dwayne aSlinas Age: 68 Gender: M : 1955 Exam Date: 06/12/2024 06:45 Ordering Phys: Patrick Moody M.D ([email or web address]) Technologist: TAMMY Sutton Exam Location: [facility] Indications: CP STRESS TEST [facility] IMAGE PROTOCOL Rest/Stress 1 Lexiscan Day Radiopharmaceutical Dose (mCi) Administration Site Administered by Rest: Tc-99m 9.6 IV TAMMY Harrison Sestamibi Stress:Tc-99m 32 IV TAMMY Starks Sestamibi Rest: 12-Jun-2024 60 Discovery 630 Stress: 12-Jun-2024 30 Discovery 630 0.4mg Lexiscan. Images obtained in supine and prone position. SPECT RESULTS Technical Quality: Good Raw Data Analysis: Normal Image Corrections: No attenuation or motion correction applied Summed Stress Score: 14 Summed Rest Score: 13 Summed Difference Score: 4 PERFUSION FINDINGS Large area of fixed perfusion defect noted in basal to distal inferior inferoseptal and distal anteroseptal wall on both stress and rest images suggestive of old myocardial infarction versus scarring. FUNCTIONAL RESULTS (calculated via Gated SPECT) Stress Image LV EF (%): 44 Stress EDV (mL):193 TID: 2.33 Stress ESV (mL):109 FUNCTIONAL FINDINGS: There appeared to be inferior inferoseptal anteroseptal wall akinesis there appeared to be global wall hypokinesis, TID ratio is elevated which could be secondary left ventricular hypertrophy/subendocardial ischemia however multivessel coronary artery disease is a strong consideration. IMPRESSIONS Large area of fixed perfusion defect noted in basal to distal inferior inferoseptal and distal anteroseptal wall on both stress and rest images suggestive of old myocardial infarction versus scarring. This study is negative for ischemia. Tara Morrison MD (Electronically Signed) Final Date: 12 June 2024 21:12 S
[2024-06-12] MEDS: regadenoson 0.4 Mg/5 ml Syringe IVP (08:17)
[2024-06-12 08:39] VITALS: BP 110/62; PULSE 59
== END 2024-06-12 06:30 | disposition home or self-care (01) ==
PROVIDERS: Family Provider Internal Medicine Cardiovascular Disease; PCP Family Medicine; Visit Provider Internal Medicine
DX: R07.9 Chest pain, unspecified (principal); R06.02 Shortness of breath
CPT/HCPCS: 36415; 78452; 93017; 96374; A9500; J2785

== ENCOUNTER 2024-06-14 12:00 | Outpatient (CLI) | payer MEDICARE, OTHER, SELFPAY ==
--- NOTE | 2024-06-14 12:00 | USCV_ITS ---
Dwayne Salinas Age: 68 Gender: M : 1955 Exam Date: 06/14/2024 12:14 Ordering Phys: Patrick Moody M.D ([email or web address]) Technologist: [place] [facility] [place] cad BP: 140 / 82 HR: 59 Rhythm: Sinus Technical Quality: Adequate MEASUREMENTS (Male / Female) Normal Values 2D ECHO LVOT Diameter 2.1 cm LV Ejection Fraction MOD 4C 27.8 % LV Ejection Fraction MOD 2C 31.7 % LV Ejection Fraction 2C AL 32.4 % LA Diameter 4.9 cm RA Systolic Volume 4C AL 66.9 ml RA Systolic Volume 4C MOD 64.5 ml LA Sys Volume AL 78.2 cm cubed LA Sys Volume Index AL 32.1 cm cubed/m squared Aorta at Sinotubular Diameter 2.9 cm IVC Diameter 2.5 cm M-MODE LA Ao Ratio MM 1.6 AV Cusp Separation MM 1.5 cm DOPPLER AV Peak Velocity 126.0 cm/s LVOT Peak Velocity 82.0 cm/s AV Area Cont Eq vti 2.5 cm squared AV Area Cont Eq pk 2.2 cm squared MV Peak Velocity 128.0 cm/s MV Area PHT 3.6 cm squared Mitral E to A Ratio 78.8 TV Peak Velocity 239.5 cm/s TR Peak Velocity 320.0 cm/s TR Peak Gradient 41.0 mmHg TV Peak E Velocity 66.0 cm/s Right Atrial Pressure 3.0 mmHg Pulmonary Artery Systolic Pressu 44.0 mmHg PV Peak Velocity 107.5 cm/s FINDINGS Left Ventricle Dilated left ventricle. Moderately severe reduced LV systolic function with global hypokinesis. The anteroseptal wall is severely hypokinetic compared to rest of martino. Estimated LVEF 35%. Right Ventricle Normal right ventricular size and fair systolic function. Right Atrium Normal right atrial size. Left Atrium Dilated left atrium. Mitral Valve Thickened mitral valve. There is mild to moderate mitral regurgitation. Aortic Valve Thickened aortic valve. No aortic valve stenosis. Tricuspid Valve Mildly thickened tricuspid valve. Mild tricuspid regurgitation. Moderately elevated tricuspid gradient 40 mmHg. Pulmonic Valve Structurally normal pulmonic valve. Trace pulmonary valve regurgitation. Pericardium No pericardial effusion. Aorta Normal size aortic root and proximal ascending aorta. IVC Mildly dilated IVC with good response to respiratory variation. CONCLUSIONS Moderately severe reduced LV systolic function. Estimated LVEF 35%. Global hypokinesis with anteroseptal wall more severely hypokinetic. Mild to moderate mitral regurgitation. Mild tricuspid regurgitation. Moderately elevated pulmonary artery systolic pressure, 45-50 mmHg. Compared to last echo from 07/2023, there is reduction of LV systolic function from 52% to 35%. Henok Aaron MD (Electronically Signed) Final Date: 15 June 2024 11:47 S
== END 2024-06-14 12:01 | disposition home or self-care (01) ==
PROVIDERS: Family Provider Internal Medicine Cardiovascular Disease; PCP Family Medicine; Visit Provider Internal Medicine
DX: I51.7 Cardiomegaly (principal); I34.81 Nonrheumatic mitral (valve) annulus calcification; I36.1 Nonrheumatic tricuspid (valve) insufficiency; R07.9 Chest pain, unspecified; R06.02 Shortness of breath
CPT/HCPCS: 93306

== ENCOUNTER 2024-06-15 03:19 | Inpatient (IN) | payer MEDICARE, OTHER, SELFPAY ==
[2024-06-15] VITALS (57 sets, daily range): BP systolic 94–160; BP diastolic 45–82; PULSE 58–72; RESP 15–35; TEMP 36.8–37.3; O2SAT 83–98; BMI 34.8
--- NOTE | 2024-06-15 03:22 | ECG_ITS ---
[employer] Test Date: 2024-06-15 Pat Name: Dwayne Salinas Department: Room: Gender: Male Paraplanner: : 1955 Requested By: John Liu Order Number: [id number] [place] MD: Henok Aaron M.D. Measurements Intervals [place] Rate: 60 P: 0 NM: 0 QRS: 66 QRSD: 131 T: -75 QT: 444 QTc: 446 Interpretive Statements ATRIAL FLUTTER/TACHYCARDIA INTRAVENTRICULAR CONDUCTION DELAY Compared to ECG 05/29/2024 16:05:37 T-wave abnormality no longer present Possible ischemia no longer present Electronically Signed On 06-15-2024 13:40:21 CDT by Henok Aaron M.D. [id number]
--- NOTE | 2024-06-15 03:25 | XRR_ITS ---
PROCEDURE INFORMATION: Exam: XR Chest Exam date and time: 06/15/2024 3:39 AM Age: 68 years old Clinical indication: Chest pressure; Prior surgery; Surgery date: 6+ months; Surgery type: Cabg. Coronary stents. Pacer. Node ablation. Patient HX: C/O chest pain; Additional info: Cp TECHNIQUE: Imaging protocol: Radiologic exam of the chest. Views: 1 view. COMPARISON: CR XR chest 1V portable [id number] 05/29/2024 9:35 AM FINDINGS: Tubes, catheters and devices: A pacer system/AICD is noted. Lungs: No infiltrate. Pleural spaces: Unremarkable. No pleural effusion. No pneumothorax. Heart/Mediastinum: There is moderate cardiomegaly with vascular congestion. Bones/joints: Unremarkable. XR/XR chest 1V portable [id number] IMPRESSION: Moderate cardiomegaly with vascular congestion.
--- NOTE | 2024-06-15 03:39 | ED_ITS ---
Documented by User: John Liu Josh, DO 06/15/24 15:52 HPI - Chest Pain 2 General: Chief Complaint: Chest Pain Stated Complaint: Possible Heart Attack Time Seen by Provider: 06/15/24 03:24 History of Present Illness: 68-year-old male patient with an extensi ve coronary disease status post stenting and bypass surgery. He presents with chest discomfort after getting up to urinate in the middle the night around 2 AM. He has continued chest discomfort with some shortness of breath. He became diet and nauseated on his way back to bed. He was recently hospitalized in the heart failure, and had 16 pounds of fluid taken off he says. He has since gained back some weight, and has noticed some leg swelling. Related Data Home Medications Medication Instructions Recorded Confirmed acetaminophen 500 mg tablet 1,000 mg PO TID PRN Pain 09/17/19 06/15/24 (Tylenol Extra Strength) cholecalciferol (vitamin D3) 50 2,000 unit PO QAM 09/17/19 06/15/24 mcg (2,000 unit) tablet [id number] 300 mcg-K 60 1 tab PO QAM 09/19/19 06/15/24 mcg-lycop 600 mcg-lutein 300 mcg tablet (Centrum Silver Men) ascorbic acid (vitamin C) 1,000 mg 1,000 mg PO QAM 04/19/22 06/15/24 tablet (Vitamin C) cyanocobalamin (vitamin B-12) 1,000 mcg PO QAM 04/19/22 06/15/24 1,000 mcg tablet (Vitamin B-12) amiodarone 400 mg tablet 400 mg PO DAILY 05/29/24 06/15/24 apixaban 5 mg tablet (Eliquis) 5 mg PO BID 05/29/24 06/15/24 metolazone 2.5 mg tablet 2.5 mg PO DAILY 06/15/24 06/15/24 potassium chloride 20 mEq 20 meq PO DAILY 06/15/24 06/15/24 tablet,extended release spironolactone 25 mg tablet 12.5 mg PO QAM 06/15/24 06/15/24 zinc sulfate 50 mg zinc (220 mg) 50 mg PO QAM 06/15/24 06/15/24 tablet Previous Rx's Medication Instructions Recorded nitroglycerin 0.4 mg sublingual 0.4 mg sublingual Q5M PRN Chest 08/23/23 tablet (Nitrostat) Pain #25 tabs omeprazole 20 mg capsule,delayed 20 mg PO BID #180 caps 10/05/23 release simvastatin 20 mg tablet 20 mg PO BEDTIME #90 tabs 10/05/23 ranolazine 500 mg tablet,extended 500 mg PO BID #180 tabs 11/07/23 release,12 hr sacubitril 49 mg-valsartan 51 mg 1 tab PO BID #180 tabs 11/07/23 tablet (Entresto) clopidogrel 75 mg tablet 75 mg PO QAM #90 tabs 01/05/24 blood sugar diagnostic (ReliOn #100 ea 02/05/24 Prime Test Strips) glyburide 5 mg tablet 5 mg PO QAM #90 tabs 04/01/24 furosemide 40 mg tablet (Lasix) 40 mg PO DAILY 90 days #180 tabs 05/30/24 carvedilol 25 mg tablet See Rx Instructions .Route 06/06/24 .COMPLEX #135 tabs escitalopram oxalate 10 mg tablet 10 mg PO QAM #90 tabs 06/06/24 metformin 500 mg tablet,extended 1,000 mg (2 x 500 mg) PO BID DM 06/06/24 release 24 hr #360 tabs tramadol 50 mg tablet 100 mg (2 x 50 mg) PO TID PRN Pain 06/06/24 #180 tabs tadalafil 5 mg tablet 5 mg PO DAILY Ed, prostate heatl 06/07/24 #30 tabs Allergies Allergy/AdvReac Type Severity Reaction Status Date / Time penicillin G Allergy HIVES Verified 05/27/24 09:41 Penicillins Allergy ALGY-Hives Verified 05/27/24 09:41 propoxyphene Allergy VERY SHORT Verified 05/27/24 09:41 [From Darvocet-N] OF BREATH [facility] ED 2 [facility]: Medical History Anticoagulation adequate with anticoagulant therapy Atrial fibrillation with controlled ventricular rate Systolic congestive heart failure last echo 11/2022- LVEF 52%, trace MR. Type 2 diabetes mellitus, without long-term current use of insulin Adult-onset obesity GERD (gastroesophageal reflux disease) Anxiety PAD (peripheral artery disease) Ischemic cardiomyopathy Hypertension Hyperlipidemia CAD (coronary artery disease) Surgical History History of surgery on extremity 12/28/2014: Right groin and femoral artery exploration and primary repair of right femoral artery catheterization site History of carpal tunnel release History of femoropopliteal bypass Left common femoral artery bypass surgery performed by Dr. Carrillo on 12/15/2014 History of umbilical hernia repair History of cholecystectomy History of cardiac radiofrequency ablation S/P CABG x 3 GOMEZ to LAD, SVG to OM1, SVG to PDA Coronary angioplasty status 04/25/15: balloon angioplasty to PDA and PLB, GOMEZ to LAD patent, SVG to OM 1 patent, SVG to PDA patent. Prox RCA 60% stenosis. Family History Brother CAD (coronary artery disease) Diabetes Hyperlipidemia Hypertension Mother CAD (coronary artery disease) Cancer Diabetes Hyperlipidemia Hypertension Grandfather Cancer Father Diabetes Hyperlipidemia Hypertension Denies family history of Clotting disorder Dementia Psychiatric illness Chronic kidney disease (CKD) Suicide Anesthesia complication Bleeding disorder Family history of premature coronary artery disease Lung disease Stroke Social History Smoking and tobacco/nicotine status: former use of tobacco/nicotine Alcohol intake: never Substance/Drug Use: never Physical Exam 2 Const: COMMON NORMALS: no acute distress GENERAL APPEARANCE: cooperative and ill appearing (Mildly); not frail appearing HENMT: COMMON NORMALS: normocephalic, atraumatic and Normal external nose present HEAD & SCALP: normocephalic and atraumatic FACE & SINUS: normal facial exam and face symmetric NOSE: Normal external nose present Eye: COMMON NORMALS: Equal, round and reactive pupils present and EOMs intact bilaterally PUPIL: Yes Equal, round and reactive pupils present Neck/C-Spine: GENERAL: Yes trachea midline Chest: CHEST: Yes Symmetrical chest wall rise Resp: COMMON NORMALS: normal respiratory effort, No retractions, No use of accessory muscles and clear to auscultation bilaterally AUSCULTATION: clear to auscultation bilaterally Cardio: COMMON NORMALS: regular rate and regular rhythm RATE: regular rate RHYTHM: regular rhythm GI: COMMON NORMALS: Normal to inspection, nondistended, normoactive bowel sounds present Extremity: COMMON NORMALS: no pedal edema Neuro: EVANS COMA SCALE: document GCS findings [place] coma scale eye opening: Spontaneous Evans coma scale verbal response: Orientated Evans coma scale motor response: Obey commands Evans coma scale total score: 15 S ENSORY EXAM: Yes extremities (intact) Psych: COMMON NORMALS: speech normal SPEECH: Yes normal speech Skin: COMMON NORMALS: no rashes or lesions noted GENERAL SKIN EXAM: no rashes or lesions noted Course 2 Vital Signs: Vital signs: Vital Signs Temperature 98.8 F 06/15/24 15:23 Pulse Rate 61 06/15/24 15:23 Respiratory Rate 16 06/15/24 15:23 Blood Pressure 109/50 06/15/24 15:23 Pulse Oximetry 96 06/15/24 15:23 Oxygen Delivery Me thod Nasal Cannula 06/15/24 15: Oxygen Flow Rate 1 06/15/24 15:23 MDM - Chest Pain Medical Decision Making This gentleman has a significant history. He has a good story. He just had a cardiac stress test showing fixed wall defects and no inducible ischemia. His chest x-ray shows some fluid overload. His white blood cell count is 12. His hemoglobin is 10.4. EKG does not show acute ST wave changes. X-ray shows cardiomegaly and vascular congestion. His creatinine is 1.3. His troponin baseline is 16. His BNP is slightly elevated at 1500. He still having discomfort despite morphine, nitroglycerin paste, Lasix, and some oxygen. Second troponin is pending. He will be checked out at shift change. Lab Data 06/15/24 03:34 06/15/24 03:34 Radiology Impressions Chest X-Ray 06/15/24 03:25 IMPRESSION: Moderate cardiomegaly with vascular congestion. Laboratory Results WBC 11.95 10^3/uL (3.29-11.43) H 06/15/24 03:34 RBC 4.49 10^6/uL (3.85-5.65) 06/15/24 03:34 Hgb 10.40 g/dL (11.27-16.99) L 06/15/24 03:34 Hct 35.5 % (37-53) L 06/15/24 03:34 MCV 79.1 fl (82-101) L 06/15/24 03:34 MCH 23.2 pg (27-33) L 06/15/24 03:34 MCHC 29.3 g/dL (30-55) L 06/15/24 03:34 RDW 21.0 % (12.1-15.1) H 06/15/24 03:34 Plt Count 204 10^3/cmm (157-399) 06/15/24 03:34 MPV 9.1 fL (7.4-10.4) 06/15/24 03:34 Neut % (Auto) 83.2 % 06/15/24 03:34 Lymph % (Auto) 5.6 % 06/15/24 03:34 [place] % (Auto) 7.8 % 06/15/24 03:34 Eos % (Auto) 2.2 % 06/15/24 03:34 Baso % (Auto) 0.5 % 06/15/24 03:34 Neut # (Auto) 9.95 10^3/uL (1.8-7.7) H 06/15/24 03:34 Lymph # (Auto) 0.7 10^3/uL (0.8-4.8) L 06/15/24 03:34 [place] # (Auto) 0.9 10^3/uL (0.2-0.9) 06/15/24 03:34 Eos # (Auto) 0.3 10^3/uL (0.0-0.8) 06/15/24 03:34 Baso # (Auto) 0.1 10^3/uL (0.0-0.1) 06/15/24 03:34 Nucleated RBC % (auto) 0 % 06/15/24 03:34 Nucleated RBCs # 0.0 /100WBC 06/15/24 03:34 Sodium 140 mmol/L (136-145) 06/15/24 03:34 Potassium 4.3 mmol/L (3.5-5.1) 06/15/24 03:34 Chloride 103 mmol/L (98-107) 06/15/24 03:34 Carbon Dioxide 25 mmol/L (22-29) 06/15/24 03:34 Anion Gap 16.3 (5-19) 06/15/24 03:34 BUN 22 mg/dL (8-23) 06/15/24 03:34 Creatinine 1.3 mg/dL (0.7-1.2) H 06/15/24 03:34 GFR Calculation 54.9 mL/min (90-130) L 06/15/24 03:34 Glucose 88 mg/dL (65-115) 06/15/24 03:34 Calculated Osmolality 293 mOsm/kg (285-295) 06/15/24 03:34 Calcium 8.5 mg/dL (8.5-10.5) 06/15/24 03:34 Troponin T Baseline 16 ng/L (0-15) H 06/15/24 03:34 Troponin T 120 Minute 14.59 ng/L (0-15) 06/15/24 05:26 Delta Troponin T -1.41 ABS# (0-10) L 06/15/24 05:26 NT-Pro-B Natriuret Pep 1539 pg/mL (0-125) H 06/15/24 03:34 Discharge Plan Discharge Patient Disposition: Admitted As Inpatient Admit Provider: Benjie Russo Clinical Impression: Unstable angina pectoris, CAD (coronary artery disease), S/P CABG x 3, Atrial fibrillation with controlled ventricular rate, Anticoagulation adequate with anticoagulant therapy, Type 2 diabetes mellitus, without long-term current use of insulin Condition: Stable Sign Out Sign Out Data: Patient Sign Out occurred on 06/15/24 at 06:10. Patient's care was discussed, and care was transferred from John Moreno DO to Jamie Desir DO. Coding Level of Care Code ED Gusset Maker for Chg Fwd Documented by User: Jamie Desir DO 06/15/24 07:08 HPI - Chest Pain 2 General: Chief Complaint: Chest Pain Stated Complaint: Possible Heart Attack Time Seen by Provider: 06/15/24 03:24 Related Data Home Medications Medication Instructions Recorded Confirmed acetaminophen 500 mg tablet 1,000 mg PO TID PRN Pain 09/17/19 06/15/24 (Tylenol Extra Strength) cholecalciferol (vitamin D3) 50 2,000 unit PO QAM 09/17/19 06/15/24 mcg (2,000 unit) tablet [id number] 300 mcg-K 60 1 tab PO QAM 09/19/19 06/15/24 mcg-lycop 600 mcg-lutein 300 mcg tablet (Centrum Silver Men) ascorbic acid (vitamin C) 1,000 mg 1,000 mg PO QAM 04/19/22 06/15/24 tablet (Vitamin C) cyanocobalamin (vitamin B-12) 1,000 mcg PO QAM 04/19/22 06/15/24 1,000 mcg tablet (Vitamin B-12) amiodarone 400 mg tablet 400 mg PO DAILY 05/29/24 06/15/24 apixaban 5 mg tablet (Eliquis) 5 mg PO BID 05/29/24 06/15/24 metolazone 2.5 mg tablet 2.5 mg PO DAILY 06/15/24 06/15/24 potassium chloride 20 mEq 20 meq PO DAILY 06/15/24 06/15/24 tablet,extended release spironolactone 25 mg tablet 12.5 mg PO QAM 06/15/24 06/15/24 zinc sulfate 50 mg zinc (220 mg) 50 mg PO QAM 06/15/24 06/15/24 tablet Previous Rx's Medication Instructions Recorded nitroglycerin 0.4 mg sublingual 0.4 mg sublingual Q5M PRN Chest 08/23/23 tablet (Nitrostat) Pain #25 tabs omeprazole 20 mg capsule,delayed 20 mg PO BID #180 caps 10/05/23 release simvastatin 20 mg tablet 20 mg PO BEDTIME #90 tabs 10/05/23 ranolazine 500 mg tablet,extended 500 mg PO BID #180 tabs 11/07/23 release,12 hr sacubitril 49 mg-valsartan 51 mg 1 tab PO BID #180 tabs 11/07/23 tablet (Entresto) clopidogrel 75 mg tablet 75 mg PO QAM #90 tabs 01/05/24 blood sugar diagnostic (ReliOn #100 ea 02/05/24 Prime Test Strips) glyburide 5 mg tablet 5 mg PO QAM #90 tabs 04/01/24 furosemide 40 mg tablet (Lasix) 40 mg PO DAILY 90 days #180 tabs 05/30/24 carvedilol 25 mg tablet See Rx Instructions .Route 06/06/24 .COMPLEX #135 tabs escitalopram oxalate 10 mg tablet 10 mg PO QAM #90 tabs 06/06/24 metformin 500 mg tablet,extended 1,000 mg (2 x 500 mg) PO BID DM 06/06/24 release 24 hr #360 tabs tramadol 50 mg tablet 100 mg (2 x 50 mg) PO TID PRN Pain 06/06/24 #180 tabs tadalafil 5 mg tablet 5 mg PO DAILY Ed, prostate heatlh 06/07/24 #30 tabs Allergies Allergy/AdvReac Type Severity Reaction Status Date / Time penicillin G Allergy HIVES Verified 05/27/24 09:41 Penicillins Allergy ALGY-Hives Verified 05/27/24 09:41 propoxyphene Allergy VERY SHORT Verified 05/27/24 09:41 [From [place]] OF BREATH [facility] ED 2 [facility]: Medical History Anticoagulation adequate with anticoagulant therapy Atrial fibrillation with controlled ventricular rate Systolic congestive heart failure last echo 11/2022- LVEF 52%, trace MR. Type 2 diabetes mellitus, without long-term current use of insulin Adult-onset obesity GERD (gastroesophageal reflux disease) Anxiety PAD (peripheral artery disease) Ischemic cardiomyopathy Hypertension Hyperlipidemia CAD (coronary artery disease) Surgical History History of surgery on extremity 12/28/2014: Right groin and femoral artery exploration and primary repair of right femoral artery catheterization site History of carpal tunnel release History of femoropopliteal bypass Left common femoral artery bypass surgery performed by Dr. Carrillo on 12/15/2014 History of umbilical hernia repair History of cholecystectomy History of cardiac radiofrequency ablation S/P CABG x 3 GOMEZ to LAD, SVG to OM1, SVG to PDA Coronary angioplasty status 04/25/15: balloon angioplasty to PDA and PLB, GOMEZ to LAD patent, SVG to OM 1 patent, SVG to PDA patent. Prox RCA 60% stenosis. Family History Brother CAD (coronary artery disease) Diabetes Hyperlipidemia Hypertension Mother CAD (coronary artery disease) Cancer Diabetes Hyperlipidemia Hypertension Grandfather Cancer Father Diabetes Hyperlipidemia Hypertension Denies family history of Clotting disorder Dementia Psychiatric illness Chronic kidney disease (CKD) Suicide Anesthesia complication Bleeding disorder Family history of premature coronary artery disease Lung disease Stroke Social History Smoking and tobacco/nicotine status: former use of tobacco/nicotine Alcohol intake: never Substance/Drug Use: never Physical Exam 2 Neuro: EVASN COMA SCALE: document GCS findings Evans coma scale total score: 15 Course 2 Vital Signs: Vital signs: Vital Signs Temperature 98.8 F 06/15/24 15:23 Pulse Rate 61 06/15/24 15:23 Respiratory Rate 16 06/15/24 15:23 Blood Pressure 109/50 06/15/24 15:23 Pulse Oximetry 96 06/15/24 15:23 Oxygen Delivery Me thod Nasal Cannula 06/15/24 15:23 Oxygen Flow Rate 1 06/15/24 15:23 MDM - Chest Pain Medical Decision Making This gentleman has a significant history. He has a good story. He just had a cardiac stress test showing fixed wall defects and no inducible ischemia. His chest x-ray shows some fluid overload. His white blood cell count is 12. His hemoglobin is 10.4. EKG does not show acute ST wave changes. X-ray shows cardiomegaly and vascular congestion. His creatinine is 1.3. His troponin baseline is 16. His BNP is slightly elevated at 1500. He still having discomfort despite morphine, nitroglycerin paste, Lasix, and some oxygen. Second troponin is pending. He will be checked out at shift change. Patient has had 2 stress test this year alone. He said several previous angiograms these were reviewed he had a lesion in the mid LAD that they were not able to stent for fear of jailing a branch of the LAD. It was showing 60 to 70% stenosis in August 2022 when he had his last cath. He is still having chest discomfort at this time despite couple of doses of morphine and topical nitro. Will remove the topical nitro put him to a nitro drip. Will admit have discussed with hospitalist and cardiology. He does have a history of A-fib but his rate is well-controlled. He is on Eliquis and clopidogrel. Medical Records I reviewed the patient's medical records. Lab Data I reviewed the patient's lab results. 06/15/24 03:34 06/15/24 03:34 Radiology Impressions Chest X-Ray 06/15/24 03:25 IMPRESSION: Moderate cardiomegaly with vascular congestion. Laboratory Results WBC 11.95 10^3/uL (3.29-11.43) H 06/15/24 03:34 RBC 4.49 10^6/uL (3.85-5.65) 06/15/24 03:34 Hgb 10.40 g/dL (11.27-16.99) L 06/15/24 03:34 Hct 35.5 % (37-53) L 06/15/24 03:34 MCV 79.1 fl (82-101) L 06/15/24 03:34 MCH 23.2 pg (27-33) L 06/15/24 03:34 MCHC 29.3 g/dL (30-55) L 06/15/24 03:34 RDW 21.0 % (12.1-15.1) H 06/15/24 03:34 Plt Count 204 10^3/cmm (157-399) 06/15/24 03:34 MPV 9.1 fL (7.4-10.4) 06/15/24 03:34 Neut % (Auto) 83.2 % 06/15/24 03:34 Lymph % (Auto) 5.6 % 06/15/24 03:34 [place] % (Auto) 7.8 % 06/15/24 03:34 Eos % (Auto) 2.2 % 06/15/24 03:34 Baso % (Auto) 0.5 % 06/15/24 03:34 Neut # (Auto) 9.95 10^3/uL (1.8-7.7) H 06/15/24 03:34 Lymph # (Auto) 0.7 10^3/uL (0.8-4.8) L 06/15/24 03:34 [place] # (Auto) 0.9 10^3/uL (0.2-0.9) 06/15/24 03:34 Eos # (Auto) 0.3 10^3/uL (0.0-0.8) 06/15/24 03:34 Baso # (Auto) 0.1 10^3/uL (0.0-0.1) 06/15/24 03:34 Nucleated RBC % (auto) 0 % 06/15/24 03:34 Nucleated RBCs # 0.0 /100WBC 06/15/24 03:34 Sodium 140 mmol/L (136-145) 06/15/24 03:34 Potassium 4.3 mmol/L (3.5-5.1) 06/15/24 03:34 Chloride 103 mmol/L (98-107) 06/15/24 03:34 Carbon Dioxide 25 mmol/L (22-29) 06/15/24 03:34 Anion Gap 16.3 (5-19) 06/15/24 03:34 BUN 22 mg/dL (8-23) 06/15/24 03:34 Creatinine 1.3 mg/dL (0.7-1.2) H 06/15/24 03:34 GFR Calculation 54.9 mL/min (90-130) L 06/15/24 03:34 Glucose 88 mg/dL (65-115) 06/15/24 03:34 Calculated Osmolality 293 mOsm/kg (285-295) 06/15/24 03:34 Calcium 8.5 mg/dL (8.5-10.5) 06/15/24 03:34 Troponin T Baseline 16 ng/L (0-15) H 06/15/24 03:34 Troponin T 120 Minute 14.59 ng/L (0-15) 06/15/24 05:26 Delta Troponin T -1.41 ABS# (0-10) L 06/15/24 05:26 NT-Pro-B Natriuret Pep 1539 pg/mL (0-125) H 06/15/24 03:34 All radiology interpretation(s) finalized by discharge Discharge Plan Discharge Patient Disposition: Admitted As Inpatient Admit Provider: Benjie Russo Clinical Impression: Unstable angina pectoris, CAD (coronary artery disease), S/P CABG x 3, Atrial fibrillation with controlled ventricular rate, Anticoagulation adequate with anticoagulant therapy, Type 2 diabetes mellitus, without long-term current use of insulin Condition: Stable Sign Out Sign Out Data: Patient Sign Out occurred on 06/15/24 at 06:10. Patient's care was discussed, and care was transferred from John Moreno DO to Jamie Desir DO. Coding Level of Care Code ED Gusset Maker for [place]
[2024-06-15 03:47] LABS: Basophils # 0.1 10^3/uL (0.0-0.1); Basophils % 0.5 %; Eosinophils # 0.3 10^3/uL (0.0-0.8); Eosinophils % 2.2 %; Hematocrit 35.5 % (37-53); Lymphocytes # 0.7 10^3/uL (0.8-4.8); Lymphocytes % 5.6 %; Mean Corpuscular HGB Conc 29.3 g/dL (30-55); Mean Corpuscular Hemoglobin 23.2 pg (27-33); Mean Corpuscular Volume 79.1 fl (82-101); Mean Platelet Volume 9.1 fL (7.4-10.4); Monocytes # 0.9 10^3/uL (0.2-0.9); Monocytes % 7.8 %; Neutrophils # 9.95 10^3/uL (1.8-7.7); Neutrophils % 83.2 %; Nucleated Red Blood Cells % 0 %; Platelet Count 204 10^3/cmm (157-399); Red Blood Count 4.49 10^6/uL (3.85-5.65); White Blood Count 11.95 10^3/uL (3.29-11.43)
[2024-06-15] MEDS: nitroglycerin 1 gm/inch oint Pkt 1 INCH TOPICAL (03:53)
[2024-06-15] MEDS: ondansetron 2 mg/ML SDV 2 mL 4 MG IVP (03:55)
[2024-06-15] MEDS: morphine 4 mg/mL SDV 1 mL 2 MG IVP ×2 (03:57→05:42)
[2024-06-15 04:15] LABS: Troponin(5th) Baseline 16 ng/L (0-15)
[2024-06-15 04:24] LABS: Anion Gap 16.3 (5-19); Blood Urea Nitrogen 22 mg/dL (8-23); Calcium 8.5 mg/dL (8.5-10.5); Carbon Dioxide 25 mmol/L (22-29); Chloride 103 mmol/L (98-107); Creatinine Clr Calc Pharmacy 69.6455; Glomerular Filtration Rate 54.9 mL/min (90-130); Glucose 88 mg/dL (65-115); NT Pro B Type Natriuretic Pept 1539 pg/mL (0-125); Osmolality Calculated 293 mOsm/kg (285-295); Potassium 4.3 mmol/L (3.5-5.1); Sodium 140 mmol/L (136-145)
--- NOTE | 2024-06-15 05:14 | ECG_ITS ---
[facility] Test Date: 2024-06-15 Pat Name: Dwayne Salinas Department: Room: Gender: Male Certified Orthotist: : 1955 Requested By: John Liu Order Number: [id number] [place] MD: Henok Aaron M.D. Measurements Intervals [place] Rate: 59 P: 0 [place]: 0 QRS: 65 QRSD: 130 T: -72 QT: 475 QTc: 472 Interpretive Statements Atrial flutter MODERATE INTRAVENTRICULAR CONDUCTION DELAY ST DEVIATION AND MODERATE T-WAVE ABNORMALITY, CONSIDER LATERAL ISCHEMIA ST DEVIATION AND MODERATE T-WAVE ABNORMALITY, CONSIDER INFERIOR ISCHEMIA Compared to ECG 06/15/2024 03:22:32 T-wave abnormality now present Electronically Signed On 06-15-2024 13:47:27 CDT by Henok Aaron M.D. [id number]
[2024-06-15] MEDS: FUROsemide 10 mg/mL SDV 10mL 60 MG IVP (05:44)
[2024-06-15 05:50] LABS: Troponin 5 2HR 14.59 ng/L (0-15); Troponin 5 2HR Delta -1.41 ABS# (0-10)
[2024-06-15] MEDS: nitroglycerin drip 50 MG/250 ML PREMIX IV (06:59)
--- NOTE | 2024-06-15 07:38 | P.HP_ITS ---
Providers/Chief Complaint 2 Admitting Physician: Benjie Russo MD Primary Care Provider: Teodoro Jon DO Chief Complaint: Possible Heart Attack History of Present Illness Dwayne Salinas is a 68 year old male at 2 AM went to the bathroom and had chest pain with diaphoresis and nausea. Chest was heavy and was hard to breathe thought he was having an SC. Cardiac enzymes have been negative here. Patient has known coronary artery disease and is chronically in a flutter after amiodarone started 3 weeks ago for atrial fibrillation He has had multiple coronary interventions including coronary artery bypass graft surgery 2006, cardiac stents last in 2021 and selective coronary angiogram 2022 2022 angiogram showed patent bypass grafts (GOMEZ to distal LAD, SVG to first OM, SVG to distal RCA/PDA) and patent proximal LAD stents. Right dominance. Late 2021 in May he his LAD stent and hiis bypass grafts were open were open at that time as well. Angiography revealed patent grafts.? His confed[place] coos's are diffusely diseased.? The circumflex is a relatively small artery but no significant stenoses other than a branch of the first marginal is closed.? That vessel is bypassed.? The distal LAD is occluded.? That vessel is bypassed.? The proximal LAD has multiple stents which are patent.? There is some modest in-stent restenosis which was present before.? His medical history includes hyperlipidemia, ischemic cardiomyopathy, systolic CHF, hx of PTCA, hx of cardiac ablation, hx of femorpopliteal bypass, hx of CABG x 3 vessels 2006, and type 2 diabetes. pt reports that even when he angina was severe and present on stress test the test proved negative and even was proceeding hi CABG in 2006. Extensive chart's were reviewed today by me Patient and his were interviewed. He wants full CODE STATUS Review of Systems 2 Narrative: Recurring chest pain with activity relieved by rest Medications/Allergies Home Medications Medication Instructions Recorded Confirmed Last Taken Type acetaminophen 500 mg tablet 1,000 mg PO TID PRN Pain 09/17/19 05/29/24 05/28/24 History (Tylenol Extra Strength) cholecalciferol (vitamin D3) 50 2,000 unit PO QAM 09/17/19 05/29/24 05/29/24 History mcg (2,000 unit) tablet [id number] 300 mcg-K 60 1 tab PO QAM 02/01/3105/29/24 05/28/24 History mcg-lycop 600 mcg-lutein 300 mcg tablet (Centrum Silver Men) ascorbic acid (vitamin C) 1,000 mg 1,000 mg PO QAM 04/19/22 05/29/24 05/29/24 History tablet (Vitamin C) cyanocobalamin (vitamin B-12) 1,000 mcg PO QAM 04/19/22 05/29/24 05/29/24 History 1,000 mcg tablet (Vitamin B-12) zinc 50 mg tablet 50 mg PO QAM 04/19/22 05/29/24 11/21/22 History albuterol sulfate 90 mcg/actuation 2 puff inhalation QID PRN 11/21/22 05/29/24 05/28/24 History aerosol inhaler Shortness Of Breath nitroglycerin 0.4 mg sublingual 0.4 mg sublingual Q5M PRN Chest 08/23/23 05/29/24 Unknown Rx tablet (Nitrostat) Pain #25 tabs omeprazole 20 mg capsule,delayed 20 mg PO BID #180 caps 10/05/23 05/29/24 05/29/24 Rx release simvastatin 20 mg tablet 20 mg PO BEDTIME #90 tabs 10/05/23 05/29/24 05/29/24 Rx ranolazine 500 mg tablet,extended 500 mg PO BID #180 tabs 11/07/23 05/29/24 05/29/24 Rx release,12 hr sacubitril 49 mg-valsartan 51 mg 1 tab PO BID #180 tabs 11/07/23 05/29/24 05/29/24 Rx tablet (Entresto) clopidogrel 75 mg tablet 75 mg PO QAM #90 tabs 01/05/24 05/29/24 05/29/24 Rx blood sugar diagnostic (ReliOn #100 ea 02/05/24 05/29/24 Unknown Rx Prime Test Strips) glyburide 5 mg tablet 5 mg PO QAM #90 tabs 04/01/24 05/29/24 05/29/24 Rx amiodarone 400 mg tablet 400 mg PO DAILY 05/29/24 06/06/24 05/29/24 History apixaban 5 mg tablet (Eliquis) 5 mg PO BID 05/29/24 05/29/24 05/29/24 History furosemide 40 mg tablet (Lasix) 40 mg PO DAILY 90 days #180 tabs 05/30/24 06/06/24 05/29/24 Rx carvedilol 25 mg tablet See Rx Instructions .Route 06/06/24 06/06/24 Unknown Rx .COMPLEX #135 tabs escitalopram oxalate 10 mg tablet 10 mg PO QAM #90 tabs 06/06/24 06/06/24 Unknown Rx metformin 500 mg tablet,extended 1,000 mg (2 x 500 mg) PO BID DM 06/06/24 06/06/24 Unknown Rx release 24 hr #360 tabs tramadol 50 mg tablet 100 mg (2 x 50 mg) PO TID PRN Pain 06/06/24 06/06/24 Unknown Rx #180 tabs tadalafil 5 mg tablet 5 mg PO DAILY Ed, prostate heatlh 06/07/24 Unknown Rx #30 tabs Allergies Allergy/AdvReac Type Severity Reaction Status Date / Time penicillin G Allergy HIVES Verified 05/27/24 09:41 Penicillins Allergy ALGY-Hives Verified 05/27/24 09:41 propoxyphene Allergy VERY SHORT Verified 05/27/24 09:41 [From Darvocet-N] OF BREATH PFSH Acute 2 PFSH: Medical History Anticoagulation adequate with anticoagulant therapy Atrial fibrillation with controlled ventricular rate Systolic congestive heart failure last echo 11/2022- LVEF 52%, trace MR. Type 2 diabetes mellitus, without long-term current use of insulin Adult-onset obesity GERD (gastroesophageal reflux disease) Anxiety PAD (peripheral artery disease) Ischemic cardiomyopathy Hypertension Hyperlipidemia CAD (coronary artery disease) Surgical History History of surgery on extremity 12/28/2014: Right groin and femoral artery exploration and primary repair of right femoral artery catheterization site History of carpal tunnel release History of femoropopliteal bypass Left common femoral artery bypass surgery performed by Dr. Carrillo on 12/15/2014 History of umbilical hernia repair History of cholecystectomy History of cardiac radiofrequency ablation S/P CABG x 3 GOMEZ to LAD, SVG to OM1, SVG to PDA Coronary angioplasty status 04/25/15: balloon angioplasty to PDA and PLB, GOMEZ to LAD patent, SVG to OM 1 patent, SVG to PDA patent. Prox RCA 60% stenosis. Family History Brother CAD (coronary artery disease) Diabetes Hyperlipidemia Hypertension Mother CAD (coronary artery disease) Cancer Diabetes Hyperlipidemia Hypertension Grandfather Cancer Father Diabetes Hyperlipidemia Hypertension Denies family history of Clotting disorder Dementia Psychiatric illness Chronic kidney disease (CKD) Suicide Anesthesia complication Bleeding disorder Family history of premature coronary artery disease Lung disease Stroke Social History Smoking and tobacco/nicotine status: former use of tobacco/nicotine Alcohol intake: never Substance/Drug Use: never Vitals/I&O/Wt Last Vital Signs Temp 98.3 F 06/15/24 07:25 Pulse 61 06/15/24 07:25 Resp 15 06/15/24 07:25 BP 131/73 06/15/24 07:25 Pulse Ox 97 06/15/24 07:25 O2 Del Method Nasal Cannula 06/15/24 07:25 Weight last 48 hrs Weight 113.398 kg Physical Exam 2 Narrative: General Well-developed well-nourished overweight male in no acute cardiopulmonary distress he is accompanied by his CV regular rate and rhythm no loud murmur Carotids no loud bruit though I do hear referred heart sounds from his sternum to the right carotid Lungs clear to auscultation bilaterally Abdomen positive bowel sounds soft nontender Calves trace edema Skin warm and dry Mood and affect appropriate calm Data 06/15/24 03:34 06/15/24 03:34 A&P Assessment and plan (1) Unstable angina pectoris: Patient with difficult to intervene coronary artery disease. He has had multiple stress test and angiogram showing stable coronary artery disease. Will ask cardiology for their input again. (2) Type 2 diabetes mellitus, without long-term current use of insulin: A1c running about 7. Patient with obesity and diabetes and coronary artery disease would be a good candidate for GLP-1 agonist (3) Atrial flutter, chronic: Continue on Eliquis. Patient tells me he is scheduled for a cardioversion on the with Dr. Denis in [place]. Patient has had a ablation previously. Rhythm today appears to be atrial flutter. He states that he was tested and found to be in atrial fibrillation 100% of the time and started on amiodarone 3 weeks ago with change to atrial flutter. (4) Hyperlipidemia: Due to difficult and recurrent coronary disease we will check high-sensitivity C-reactive protein and lipoprotein a. He would be a candidate for treatment if elevated Qualifiers: Hyperlipidemia type: other hyperlipidemia Qualified Code(s): E78.49 - Other hyperlipidemia (5) CAD (coronary artery disease): As above Attestations 2 Medical Necessity Statement*: Patient is admitted for chest pain rule out under observation and expected to be less than 2 midnights unless other findings in treatment plan is discovered Coding Level of Care Code 59907 Diagnoses Unstable angina pectoris I20.0 Type 2 diabetes mellitus, without long-term current use of insulin E11.9 Atrial flutter, chronic I48.92 Other hyperlipidemia E78.49 Hyperlipidemia type: other hyperlipidemia Coronary artery disease of [place] coos artery of [place] heart with stable angina pectoris I25.10 Time Spent (min) 70
[2024-06-15] MEDS: apixaban 5 mg Tablet PO ×2 (08:48→18:08)
[2024-06-15] MEDS: ranolazine (12HR) 500 mg Tablet PO ×2 (08:48→18:08)
[2024-06-15] MEDS: sacubitril/valsartan 24-26 mg Tablet 2 EACH PO ×2 (08:48→18:08)
[2024-06-15] MEDS: FUROsemide 40 mg Tablet PO (08:48)
[2024-06-15] MEDS: pantoprazole DR 40 mg Tablet PO (08:48)
[2024-06-15] MEDS: carvedilol 25 mg Tablet PO (09:04)
[2024-06-15] MEDS: metformin XR 500 MG Tablet 1000 MG PO (09:04)
[2024-06-15] MEDS: amiodarone 200 mg Tablet 400 MG PO (09:28)
[2024-06-15] MEDS: cholecalciferol (vitamin D3) 1,000 unit Tablet 2000 UNIT PO (09:28)
[2024-06-15] MEDS: multivitamin therapeutic Tablet 1 TAB PO (09:28)
[2024-06-15] MEDS: zinc gluconate 50 mg Tablet PO (09:28)
--- NOTE | 2024-06-15 09:45 | PC.PHAR ---
Pt carries med list in his wallet. Medications verified from the list. Pt has Metolazone 2.5mg daily on her Hospital med list from 05/23/24 14ds-therapy should be completed on 06/16/24
--- NOTE | 2024-06-15 10:02 | ECG_ITS ---
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 Measurements Intervals [place] Rate: 61 P: 102 [place]: 311 QRS: 56 QRSD: 125 T: -77 QT: 438 QTc: 444 Interpretive Statements Atrial Flutter POSSIBLE ANTERIOR MYOCARDIAL INFARCTION , OF INDETERMINATE AGE MODERATE T-WAVE ABNORMALITY, CONSIDER LATERAL ISCHEMIA MODERATE T-WAVE ABNORMALITY, CONSIDER INFERIOR ISCHEMIA Compared to ECG 06/15/2024 05:14:56 No significant change Electronically Signed On 06-15-2024 13:46:35 CDT by Henok Aaron M.D. [email or web address]
[2024-06-15 10:10] LABS: Troponin 5 6HR 15.91 ng/L (0-15)
[2024-06-15 10:11] LABS: Troponin 5 6HR Delta -0.09 ng/L (0-12)
--- NOTE | 2024-06-15 10:37 | PC.NURSE ---
nitro drip stopped at this time due to low BP. Patient denies symptoms at this time.
[2024-06-15 11:19] LABS: Glucose Point of Care 227 mg/dL (70-110)
[2024-06-15] MEDS: insulin lispro 100 unit/1 mL SUBCUT ×2 (12:04→21:10)
--- NOTE | 2024-06-15 12:19 | PM.CONSULT ---
Providers/Reason For Consult Consulting Physician/Specialty*: Cardiology/Dr. Aaron Reason for Consult*: Chest pain/shortness of air/known cardiac history Requesting Physician: Dr. Moreno Attending Physician: Nikolai Batista MD Primary Care Provider: Teodoro Jon DO History of Present Illness History of Present Illness Dwayne Salinas is a 68 year old male with a known significant cardiac history, CABG, significant residual CAD being managed medically, ongoing history of atrial fibrillation/atrial flutter, admitted last night with a vague chest pain symptoms and shortness of air. He has been ruled out for acute coronary syndrome with no acute ECG changes for ischemia and negative serial cardiac troponin enzymes. Currently he is asymptomatic, laying comfortably on the bed. No further chest pain on IV nitro. He feels less short of air after been given extra Lasix. He remains in atrial flutter with a controlled rate. Blood pressure is good control now. Review of Systems Narrative: Detailed systemic review unremarkable except for as mentioned above in the history of past illness. 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 Medications/Allergies Home Medications Medication Instructions Recorded Confirmed Last Taken Type acetaminophen 500 mg tablet 1,000 mg PO TID PRN Pain 09/17/19 06/15/24 05/28/24 History (Tylenol Extra Strength) cholecalciferol (vitamin D3) 50 2,000 unit PO QAM 09/17/19 06/15/24 06/14/24 History mcg (2,000 unit) tablet [id number]-[id number] 300 mcg-K 60 1 tab PO QAM 09/19/19 06/15/24 06/14/24 History mcg-lycop 600 mcg-lutein 300 mcg tablet (Centrum Silver Men) ascorbic acid (vitamin C) 1,000 mg 1,000 mg PO QAM 04/19/22 06/15/24 06/14/24 History tablet (Vitamin C) cyanocobalamin (vitamin B-12) 1,000 mcg PO QAM 04/19/22 06/15/24 06/14/24 History 1,000 mcg tablet (Vitamin B-12) nitroglycerin 0.4 mg sublingual 0.4 mg sublingual Q5M PRN Chest 08/23/23 06/15/24 Unknown Rx tablet (Nitrostat) Pain #25 tabs omeprazole 20 mg capsule,delayed 20 mg PO BID #180 caps 10/05/23 06/15/24 06/14/24 Rx release simvastatin 20 mg tablet 20 mg PO BEDTIME #90 tabs 10/05/23 06/15/24 06/14/24 Rx ranolazine 500 mg tablet,extended 500 mg PO BID #180 tabs 11/07/23 06/15/24 06/14/24 Rx release,12 hr sacubitril 49 mg-valsartan 51 mg 1 tab PO BID #180 tabs 11/07/23 06/15/24 06/14/24 Rx tablet (Entresto) clopidogrel 75 mg tablet 75 mg PO QAM #90 tabs 01/05/24 06/15/24 06/14/24 Rx blood sugar diagnostic (ReliOn #100 ea 02/05/24 06/15/24 Unknown Rx Prime Test Strips) glyburide 5 mg tablet 5 mg PO QAM #90 tabs 04/01/24 06/15/24 06/14/24 Rx amiodarone 400 mg tablet 400 mg PO DAILY 05/29/24 06/15/24 06/14/24 History apixaban 5 mg tablet (Eliquis) 5 mg PO BID 05/29/24 06/15/24 06/14/24 History furosemide 40 mg tablet (Lasix) 40 mg PO DAILY 90 days #180 tabs 05/30/24 06/15/24 06/14/24 Rx carvedilol 25 mg tablet See Rx Instructions .Route 06/06/24 06/15/24 06/14/24 Rx .COMPLEX #135 tabs escitalopram oxalate 10 mg tablet 10 mg PO QAM #90 tabs 06/06/24 06/15/24 06/14/24 Rx metformin 500 mg tablet,extended 1,000 mg (2 x 500 mg) PO BID DM 06/06/24 06/15/24 06/14/24 Rx release 24 hr #360 tabs tramadol 50 mg tablet 100 mg (2 x 50 mg) PO TID PRN Pain 06/06/24 06/15/24 Unknown Rx #180 tabs tadalafil 5 mg tablet 5 mg PO DAILY Ed, prostate heatlh 10/25/24 11/02/24 11/01/24 Rx #30 tabs metolazone 2.5 mg tablet 2.5 mg PO DAILY 06/15/24 06/15/24 Unknown History potassium chloride 20 mEq 20 meq PO DAILY 06/15/24 06/15/24 06/14/24 History tablet,extended release spironolactone 25 mg tablet 12.5 mg PO QAM 06/15/24 06/15/24 06/14/24 History zinc sulfate 50 mg zinc (220 mg) 50 mg PO QAM 06/15/24 06/15/24 06/14/24 History tablet Allergies Allergy/AdvReac Type Severity Reaction Status Date / Time penicillin G Allergy HIVES Verified 05/27/24 09:41 Penicillins Allergy ALGY-Hives Verified 05/27/24 09:41 propoxyphene Allergy VERY SHORT Verified 05/27/24 09:41 [From [place]] OF BREATH Current Medications Generic Name Dose Route Start Last Admin Trade Name Edgarq PRN Reason Stop Dose Admin Apixaban 5 mg 06/15/24 09:00 06/15/24 08:48 Apixaban 5 Mg Tablet PO 5 mg BID NELIDA Administration Carvedilol 25 mg 06/15/24 08:13 06/15/24 09:04 Carvedilol 25 Mg Tablet PO 25 mg QAM NELIDA Administration Furosemide 40 mg 06/15/24 09:00 06/15/24 08:48 Furosemide 40 Mg Tablet PO 40 mg DAILY NELIDA Administration Nitroglycerin/Dextrose 50 mg in 250 mls @ 0 mls/hr 06/15/24 06:45 06/15/24 10:37 Nitroglycerin Drip IV 0 mcg/min .Q0M NELIDA 0 mls/hr Titration Protocol Per Protocol Insulin Human Lispro 0 unit 06/15/24 12:00 06/15/24 12:04 Insulin Lispro 100 Unit/1 Ml SUBCUT 6 unit WM&BEDTIME NELIDA Administration Protocol Multivitamins Therapeutic 1 tab 06/15/24 09:15 06/15/24 09:28 Multivitamin Therapeutic Tablet PO 1 tab DAILY NELIDA Administration Pantoprazole Sodium 40 mg 06/15/24 09:00 06/15/24 08:[address] 40 Mg Tablet PO 40 mg DAILY NELIDA Administration Ranolazine 500 mg 06/15/24 09:00 06/15/24 08:48 Ranolazine (12hr) 500 Mg Tablet PO 500 mg BID NELIDA Administration Sacubitril/Valsartan 2 each 06/15/24 09:00 06/15/24 08:48 Sacubitril/Valsartan 24-26 Mg Tablet PO 2 each BID NELIDA Administration Vitamin D 2,000 unit 06/15/24 09:15 06/15/24 09:28 Cholecalciferol (Vitamin D3) 1,000 Unit Tablet PO 2,000 unit QAM NELIDA Administration Zinc Gluconate 50 mg 06/15/24 09:15 06/15/24 09:28 Zinc Gluconate 50 Mg Tablet PO 50 mg DAILY NELIDA Administration PFSH Acute PFSH: Medical History Anticoagulation adequate with anticoagulant therapy Atrial fibrillation with controlled ventricular rate Systolic congestive heart failure last echo 11/2022- LVEF 52%, trace MR. Type 2 diabetes mellitus, without long-term current use of insulin Adult-onset obesity GERD (gastroesophageal reflux disease) Anxiety PAD (peripheral artery disease) Ischemic cardiomyopathy Hypertension Hyperlipidemia CAD (coronary artery disease) Surgical History History of surgery on extremity 12/28/2014: Right groin and femoral artery exploration and primary repair of right femoral artery catheterization site History of carpal tunnel release History of femoropopliteal bypass Left common femoral artery bypass surgery performed by Dr. Carrillo on 12/15/2014 History of umbilical hernia repair History of cholecystectomy History of cardiac radiofrequency ablation S/P CABG x 3 GOMEZ to LAD, SVG to OM1, SVG to PDA Coronary angioplasty status 04/25/15: balloon angioplasty to PDA and PLB, GOMEZ to LAD patent, SVG to OM 1 patent, SVG to PDA patent. Prox RCA 60% stenosis. Family History Brother CAD (coronary artery disease) Diabetes Hyperlipidemia Hypertension Mother CAD (coronary artery disease) Cancer Diabetes Hyperlipidemia Hypertension Grandfather Cancer Father Diabetes Hyperlipidemia Hypertension Denies family history of Clotting disorder Dementia Psychiatric illness Chronic kidney disease (CKD) Suicide Anesthesia complication Bleeding disorder Family history of premature coronary artery disease Lung disease Stroke Social History Smoking and tobacco/nicotine status: former use of tobacco/nicotine Alcohol intake: never Substance/Drug Use: never Vitals/I&O/Wt Last Vital Signs Temp 98.3 F 06/15/24 11:12 Pulse 61 06/15/24 12:00 Resp 35 H 06/15/24 12:00 BP 107/56 06/15/24 12:00 Pulse Ox 94 06/15/24 12:00 O2 Del Method Nasal Cannula 06/15/24 11:12 O2 Flow Rate 1 06/15/24 11:12 06/14/24 06/15/24 06/15/24 22:59 06:59 14:59 Intake Total 10.9 / 10.9 Output Total 1400 / 1400 Balance -1389.1 / -1389.1 Weight last 48 hrs Weight 250 lb Weight 250 lb Physical Exam Narrative: Patient laying comfortably on the bed. No respiratory distress. His vitals are stable. Const: COMMON NORMALS: no acute distress, patient oriented x3 and alert HENMT: OTHER: Unremarkable. Eye: OTHER: Normal Chest: OTHER: Normal respiratory breathing pattern. No tenderness across chest. Resp: OTHER: Good air entry bilaterally. No added sounds. Cardio: OTHER: Irregularly irregular heartbeat, normal first and second heart sounds. No JVD. GI: OTHER: Soft nontender abdominal. Bowel sounds audible. Extremity: NARRATIVE EXTREMITY EXAM: 1+ edema over his right lower extremity, the leg from vein graft for CABG. Neuro: COMMON NORMALS: patient oriented x3 SENSORIUM/ORIENTATION: Yes alert OTHER: Grossly intact. Patient moves all 4 limbs. Skin: OTHER: Warm and dry. Data 06/15/24 03:34 06/15/24 03:34 A&P Assessment and plan (1) Systolic heart failure: 68-year-old male patient with extensive cardiac history now presenting with vague chest pain, ruled out for ACS. Clinically he is in mild heart failure symptoms with reduction of his LVEF on repeat echo. LVEF reduced from 50% to 35%. Clinically improved with the extra dose of diuretics. He remains in atrial flutter/atrial fibrillation with controlled rate. I reviewed his medication he is on all appropriate medication, fully optimized, including oral anticoagulation, antiarrhythmic as well as Entresto. I will recommend additional scheduled diuretics considering his symptoms of heart failure with significant reduction of LVEF. (2) Atrial flutter, chronic: (3) Unstable angina pectoris: Coding Level of Care Code 67003 Diagnoses Systolic heart failure I50.20 Atrial flutter, chronic I48.92 Unstable angina pectoris I20.0 Time Spent (min) 30
[2024-06-15 17:12] LABS: Glucose Point of Care 99 mg/dL (70-110)
[2024-06-15] MEDS: carvedilol 12.5 mg Tablet PO (18:08)
[2024-06-15] MEDS: acetaminophen 325 mg Tablet 650 MG PO (19:31)
[2024-06-15] MEDS: TRAMadol 50 mg Tablet 100 MG PO (19:32)
[2024-06-15 20:32] LABS: Glucose Point of Care 173 mg/dL (70-110)
[2024-06-15] MEDS: atorvastatin 40 mg Tablet 20 MG PO (21:08)
[2024-06-16] VITALS (7 sets, daily range): BP systolic 111–124; BP diastolic 48–61; PULSE 60–62; RESP 18–21; TEMP 36.6–37.1; O2SAT 93–97
[2024-06-16 03:29] LABS: Basophils # 0.1 10^3/uL (0.0-0.1); Basophils % 1.2 %; Eosinophils # 0.4 10^3/uL (0.0-0.8); Eosinophils % 6.2 %; Hematocrit 35.4 % (37-53); Lymphocytes % 17.6 %; Mean Corpuscular HGB Conc 28.5 g/dL (30-55); Mean Corpuscular Hemoglobin 22.4 pg (27-33); Mean Corpuscular Volume 78.5 fl (82-101); Mean Platelet Volume 9.5 fL (7.4-10.4); Monocytes # 0.8 10^3/uL (0.2-0.9); Neutrophils # 3.54 10^3/uL (1.8-7.7); Neutrophils % 60.5 %; Nucleated Red Blood Cells % 0 %; Platelet Count 220 10^3/cmm (157-399); Red Blood Count 4.51 10^6/uL (3.85-5.65); Red Cell Distribution Width 21.2 % (12.1-15.1); White Blood Count 5.85 10^3/uL (3.29-11.43)
[2024-06-16 03:56] LABS: Alanine Aminotransferase 13 U/L (0-41); Albumin Level 3.9 g/dL (3.5-5.2); Alkaline Phosphatase 83 U/L (40-130); Anion Gap 14.1 (5-19); Aspartate Amino Transferase 13 U/L (0-40); Blood Urea Nitrogen 20 mg/dL (8-23); Calcium 8.4 mg/dL (8.5-10.5); Carbon Dioxide 28 mmol/L (22-29); Chloride 103 mmol/L (98-107); Chol HDL Ratio 3.35 mg/dL (1.0-5.00); Cholesterol 114 mg/dL (0-200); Creatinine Clr Calc Pharmacy 82.3084; Globulin 2.6 g/dL (1.3-4.6); Glomerular Filtration Rate 66.6 mL/min (90-130); Glucose 101 mg/dL (65-115); HDL Cholesterol 34 mg/dL (60-100); LDL Cholesterol Calculated 64 mg/dL (50-129); LDL HDL Ratio 1.88 RATIO (0.00-3.22); Osmolality Calculated 295 mOsm/kg (285-295); Potassium 4.1 mmol/L (3.5-5.1); Sodium 141 mmol/L (136-145); Total Bilirubin 0.5 mg/dL (0.15-1.2); Total Protein 6.5 g/dL (6.6-8.7); Triglycerides 79 mg/dL (0-150)
[2024-06-16] MEDS: cyanocobalamin 1,000 mcg Tablet 1000 MCG PO (05:26)
[2024-06-16] MEDS: clopidogrel 75 mg Tablet PO (05:26)
[2024-06-16] MEDS: cholecalciferol (vitamin D3) 1,000 unit Tablet 2000 UNIT PO (05:26)
[2024-06-16] MEDS: carvedilol 25 mg Tablet PO (05:26)
[2024-06-16] MEDS: escitalopram 10 mg Tablet PO (05:26)
[2024-06-16] MEDS: ascorbic acid 500 mg Tablet 1000 MG PO (05:26)
[2024-06-16 06:25] LABS: Glucose Point of Care 155 mg/dL (70-110)
[2024-06-16] MEDS: amiodarone 200 mg Tablet 400 MG PO (08:20)
[2024-06-16] MEDS: insulin lispro 100 unit/1 mL SUBCUT ×2 (08:23→12:21)
[2024-06-16] MEDS: FUROsemide 40 mg Tablet PO (08:24)
[2024-06-16] MEDS: ranolazine (12HR) 500 mg Tablet PO (08:24)
[2024-06-16] MEDS: pantoprazole DR 40 mg Tablet PO (08:24)
[2024-06-16] MEDS: apixaban 5 mg Tablet PO (08:25)
[2024-06-16] MEDS: zinc gluconate 50 mg Tablet PO (08:25)
[2024-06-16] MEDS: sacubitril/valsartan 24-26 mg Tablet 2 EACH PO (08:25)
[2024-06-16] MEDS: multivitamin therapeutic Tablet 1 TAB PO (08:28)
--- NOTE | 2024-06-16 11:00 | P.DS_ITS ---
Discharge Providers Date of Admission: 06/15/24 06:18 Date of Discharge: June 16, 2024 Attending Provider at Admission: Benjie Russo MD Attending Provider at Discharge: Nikolai Batista MD Consults: Cardiology: Dr. Aaron Primary Care Provider: Teodoro Jon DO Diagnoses at Discharge Discharge Diagnosis (1) Systolic heart failure: Status: Acute (2) Atrial flutter, chronic: Status: Acute (3) Unstable angina pectoris: Status: Acute Reason for Visit Reason for Visit: Possible Heart Attack Brief History: History as per HPI: Dwayne Salinas is a 68 year old male at 2 AM went to the bathroom and had chest pain with diaphoresis and nausea. Chest was heavy and was hard to breathe thought he was having an [place]. Cardiac enzymes have been negative here. Patient has known coronary artery disease and is chronically in a flutter after amiodarone started 3 weeks ago for atrial fibrillation He has had multiple coronary interventions including coronary artery bypass graft surgery 2006, cardiac stents last in 2021 and selective coronary angiogram 2022 2022 angiogram showed patent bypass otilio ts (GOMEZ to distal LAD, SVG to first OM, SVG to distal RCA/PDA) and patent proximal LAD stents. Right dominance. Late 2021 in May he his LAD stent and hiis bypass grafts were open were open at that time as well. Angiography revealed patent grafts.? His [place] are diffusely diseased.? The circumflex is a relatively small artery but no significant stenoses other than a branch of the first marginal is closed.? That vessel is bypassed.? The distal LAD is occluded.? That vessel is bypassed.? The proximal LAD has multiple stents which are patent.? There is some modest in-stent restenosis which was present before.? His medical history includes hyperlipidemia, ischemic cardiomyopathy, systolic CHF, hx of PTCA, hx of cardiac ablation, hx of femorpopliteal bypass, hx of CABG x 3 vessels 2006, and type 2 diabetes. pt reports that even when he angina was severe and present on stress test the test proved negative and even was proceeding hi CABG in 2006. Extensive chart's were reviewed today by me Patient and his were interviewed. He wants full CODE STATUS Hospital Course Hospital Course Patient was admitted to the hospital further evaluation and management of chest pain with concerns for angina. Non-ST elevation [place] was ruled out with negative troponins. Cardiology was consulted and echocardiogram was done which showed EF of 35% with global LV hypokinesis with anteroseptal wall more severely hypokinetic, mild to moderate MR, mild TR with PASP of 45 mmHg. Patient had a stress test on 06/12 which showed a large area of fixed perfusion defect in basal to distal inferior septal and distal anteroseptal wall on both stress and rest images suggestive of old myocardial infarction versus scarring with stress test negative for ischemia. It is believed patient symptoms are most likely in setting of mild congestive heart failure for which she was started on IV diuresis. Patient symptoms resolved during hospitalization. He has been discharged on oral diuretics. His metformin has been switched over to Invokana for better diuretic effect with diabetic care. He was counseled in detail about lifestyle changes with heart failure. He is to follow-up with his primary care provider within next 1 week. Physical Exam Narrative: General Well-developed well-nourished overweight male in no acute cardiopulmonary distress he is accompanied by his CV regular rate and rhythm no loud murmur Carotids no loud bruit though I do hear referred heart sounds from his sternum to the right carotid Lungs clear to auscultation bilaterally Abdomen positive bowel sounds soft nontender Calves trace edema Skin warm and dry Mood and affect appropriate calm Discharge Data Studies Completed and Pending Completed Studies During Hospitalization Category Date Time Status XR chest 1V portable [id number] Stat Exams 06/15/24 03:25 Completed Pending at discharge Category Date Time Status Lipoprotein (a) Routine Lab 06/16/24 02:09 Received Radiology Impressions Chest X-Ray 06/15/24 03:25 IMPRESSION: Moderate cardiomegaly with vascular congestion. Laboratory Results WBC 5.85 10^3/uL (3.29-11.43) 06/16/24 02:09 RBC 4.51 10^6/uL (3.85-5.65) 06/16/24 02:09 Hgb 10.10 g/dL (11.27-16.99) L 06/16/24 02:09 Hct 35.4 % (37-53) L 06/16/24 02:09 MCV 78.5 fl (82-101) L 06/16/24 02:09 MCH 22.4 pg (27-33) L 06/16/24 02:09 MCHC 28.5 g/dL (30-55) L 06/16/24 02:09 RDW 21.2 % (12.1-15.1) H 06/16/24 02:09 Plt Count 220 10^3/cmm (157-399) 06/16/24 02:09 MPV 9.5 fL (7.4-10.4) 06/16/24 02:09 Neut % (Auto) 60.5 % 06/16/24 02:09 Lymph % (Auto) 17.6 % 06/16/24 02:09 Hall % (Auto) 14.0 % 06/16/24 02:09 Eos % (Auto) 6.2 % 06/16/24 02:09 Baso % (Auto) 1.2 % 06/16/24 02:09 Neut # (Auto) 3.54 10^3/uL (1.8-7.7) 06/16/24 02:09 Lymph # (Auto) 1.0 10^3/uL (0.8-4.8) 06/16/24 02:09 Hall # (Auto) 0.8 10^3/uL (0.2-0.9) 06/16/24 02:09 Eos # (Auto) 0.4 10^3/uL (0.0-0.8) 06/16/24 02:09 Baso # (Auto) 0.1 10^3/uL (0.0-0.1) 06/16/24 02:09 Nucleated RBC % (auto) 0 % 06/16/24 02:09 Nucleated RBCs # 0.0 /100WBC 06/16/24 02:09 Sodium 141 mmol/L (136-145) 06/16/24 02:09 Potassium 4.1 mmol/L (3.5-5.1) 06/16/24 02:09 Chloride 103 mmol/L (98-107) 06/16/24 02:09 Carbon Dioxide 28 mmol/L (22-29) 06/16/24 02:09 Anion Gap 14.1 (5-19) 06/16/24 02:09 BUN 20 mg/dL (8-23) 06/16/24 02:09 Creatinine 1.1 mg/dL (0.7-1.2) 06/16/24 02:09 GFR Calculation 66.6 mL/min (90-130) L 06/16/24 02:09 Glucose 101 mg/dL (65-115) 06/16/24 02:09 POC Glucose 155 mg/dL (70-110) H 06/16/24 06:17 Calculated Osmolality 295 mOsm/kg (285-295) 06/16/24 02:09 Calcium 8.4 mg/dL (8.5-10.5) L 06/16/24 02:09 Total Bilirubin 0.5 mg/dL (0.15-1.2) 06/16/24 02:09 AST 13 U/L (0-40) 06/16/24 02:09 ALT 13 U/L (0-41) 06/16/24 02:09 Alkaline Phosphatase 83 U/L (40-130) 06/16/24 02:09 Troponin T Baseline 16 ng/L (0-15) H 06/15/24 03:34 Troponin T 120 Minute 14.59 ng/L (0-15) 06/15/24 05:26 Delta Troponin T -1.41 ABS# (0-10) L 06/15/24 05:26 Troponin T Hi Sens 6Hr 15.91 ng/L (0-15) H 06/15/24 09:34 Troponin T Hi Sens 6Hr Delta -0.09 ng/L (0-12) L 06/15/24 09:34 C-React Prot High Sens 0.930 mg/dL (0.0-0.3) H 06/16/24 02:09 NT-Pro-B Natriuret Pep 1539 pg/mL (0-125) H 06/15/24 03:34 Total Protein 6.5 g/dL (6.6-8.7) L 06/16/24 02:09 Albumin 3.9 g/dL (3.5-5.2) 06/16/24 02:09 Globulin 2.6 g/dL (1.3-4.6) 06/16/24 02:09 Triglycerides 79 mg/dL (0-150) 06/16/24 02:09 Cholesterol 114 mg/dL (0-200) 06/16/24 02:09 LDL Cholesterol, Calc 64 mg/dL (50-129) 06/16/24 02:09 HDL Cholesterol 34 mg/dL (60-100) L 06/16/24 02:09 LDL/HDL Ratio 1.88 RATIO (0.00-3.22) 06/16/24 02:09 Cholesterol/HDL Ratio 3.35 mg/dL (1.0-5.00) 06/16/24 02:09 Procedures Performed Lexiscan stress test: PERFUSION FINDINGS Large area of fixed perfusion defect noted in basal to distal inferior inferoseptal and distal anteroseptal wall on both stress and rest images suggestive of old myocardial infarction versus scarring. FUNCTIONAL RESULTS (calculated via Gated SPECT) Stress Image LV EF (%): 44 Stress EDV (mL):193 TID: 2.33 Stress ESV (mL):109 FUNCTIONAL FINDINGS: There appeared to be inferior inferoseptal anteroseptal wall akinesis there appeared to be global wall hypokinesis, TID ratio is elevated which could be secondary left ventricular hypertrophy/subendocardial ischemia however multivessel coronary artery disease is a strong consideration. IMPRESSIONS Large area of fixed perfusion defect noted in basal to distal inferior inferoseptal and distal anteroseptal wall on both stress and rest images suggestive of old myocardial infarction versus scarring. This study is negative for ischemia. Tara Morrison MD (Electronically Signed) Final Date: 12 June 2024 21:12 Echocardiogram: CONCLUSIONS Moderately severe reduced LV systolic function. Estimated LVEF 35%. Global hypokinesis with anteroseptal wall more severely hypokinetic. Mild to moderate mitral regurgitation. Mild tricuspid regurgitation. Moderately elevated pulmonary artery systolic pressure, 45-50 mmHg. Compared to last echo from 07/2023, there is reduction of LV systolic function from 52% to 35%. Henok Aaron MD (Electronically Signed) Final Date: 15 June 2024 11:47 Vitals Last Vital Signs Temp 97.9 F 06/16/24 07:39 Pulse 60 06/16/24 08:27 Resp 18 06/16/24 08:27 BP 116/54 06/16/24 07:39 Pulse Ox 96 06/16/24 08:27 O2 Del Method Nasal Cannula 06/16/24 08:27 O2 Flow Rate 1 06/16/24 08:27 Discharge Plan Discharge Patient Disposition: Home Condition: Stable Prescriptions: New Invokana 300 mg tablet 300 mg PO QAM Qty: 30 0RF amiodarone 200 mg tablet 200 mg PO DAILY Qty: 30 0RF Continued acetaminophen [Tylenol Extra Strength] 500 mg tablet 1,000 mg PO TID PRN (Reason: Pain) Rx Instructions: takes with tramadol cholecalciferol (vitamin D3) 2,000 unit tablet 2,000 unit PO QAM ranolazine 500 mg tablet extended release 12 hr 500 mg PO BID Qty: 180 4RF Entresto 49-51 mg tablet 1 tab PO BID Qty: 180 4RF nitroglycerin [Nitrostat] 0.4 mg tablet, sublingual 0.4 mg SUBLINGUAL Q5M PRN (Reason: Chest Pain) Qty: 25 2RF Rx Instructions: do not exceed 3 doses per episode tramadol 50 mg tablet 100 mg PO TID PRN (Reason: Pain) Qty: 180 5RF escitalopram oxalate 10 mg tablet 10 mg PO QAM Qty: 90 1RF carvedilol 25 mg tablet See Rx Instructions .ROUTE .COMPLEX Qty: 135 3RF Rx Instructions: take 1 tablet by mouth in the morning then 1/2 tablet in the evening omeprazole 20 mg capsule,delayed release(DR/EC) 20 mg PO BID Qty: 180 3RF simvastatin 20 mg tablet 20 mg PO BEDTIME Qty: 90 3RF clopidogrel 75 mg tablet 75 mg PO QAM Qty: 90 3RF (DME) ReliOn Prime Test Strips Strip See Rx Instructions .ROUTE .COMPLEX Qty: 100 4RF Dose Instruction: USE 1 TEST STRIP TO BLOOD SUGARS DAILY FOR DIABETES MELLITUS DX E11.9 Rx Instructions: USE 1 TEST STRIP TO BLOOD SUGARS DAILY FOR DIABETES MELLITUS DX E11.9 glyburide 5 mg tablet 5 mg PO QAM Qty: 90 3RF Rx Instructions: take prior to first meal of the day tadalafil 5 mg tablet 5 mg PO DAILY Qty: 30 3RF Centrum Silver Men 300-600-300 mcg Tablet 1 tab PO QAM ascorbic acid (vitamin C) [Vitamin C] 1,000 mg Tablet 1,000 mg PO QAM cyanocobalamin (vitamin B-12) [Vitamin B-12] 1,000 mcg Tablet 1,000 mcg PO QAM Eliquis 5 mg tablet 5 mg PO BID furosemide [Lasix] 40 mg tablet 40 mg PO DAILY 90 Days Qty: 180 3RF zinc sulfate 50 mg zinc (220 mg) Tablet 50 mg PO QAM spironolactone 25 mg tablet 12.5 mg PO QAM potassium chloride 20 mEq tablet extended release 20 meq PO DAILY Discontinued metformin 500 mg tablet extended release 24 hr 1,000 mg PO BID Qty: 360 3RF amiodarone 400 mg tablet 400 mg PO DAILY metolazone 2.5 mg tablet 2.5 mg PO DAILY Discharge Orders: Discharge Order (Routine); Ordered 06/16/24 Ordered By: Nikolai Batista Referrals: Teodoro Jon, [Primary Care Provider] - (We have notified your physician's clinic of the need for a follow-up appointment to be scheduled. If you have not heard from them within the next 2 business days, please call them directly. ) Nancy Baltazar FNP [Nurse Practitioner] - 7-10 days Discharge Diet: Cardiac and Diabetic Discharge Activity: Resume usual activity and Increase activity as tolerated Patient Instructions: Amiodarone (By mouth), Canagliflozin (By mouth) (Invokana), Heart Failure (DC), Atrial Flutter (DC), CHF Stoplight, Chest Pain S toplight, Opioid Safety Activity Restrictions/Additional Instructions: Restrict fluid intake to less than 1500 cc, salt intake to less than 2 g daily. Advised to check his weight daily at home. Is advised that weight today would be the dry weight and if body weight increases by around 5 pounds, patient is to take an extra dose of Lasix daily till body weight comes down to weight today. If not able to come down to dry body weight in 1 week, then is to call cardiology office for further recommendations. Patient was counseled in detail to take medications regularly as prescribed. Discharge Attestations Time Spent in Discharge Care*: greater than 30 min Specific Discharge Activities: educating patient, educating and/or supporting family/caregiver, discussing with pcp/other providers, discussing with case management assistant/social workers/dc planners, documenting/other paperwork and evaluating patient/reviewing data Status at Discharge: Cognitive status at discharge: cognitively intact , Behavioral status at discharge: cooperative , Functional status at discharge: independent ambulation , Overall status at discharge: patient is back to baseline Quality Metrics Clinical Quality Measures [ No reported AMI, CVA or VTE this stay] Coding Level of Care Code 35575 Total time (in minutes) for Discharge: 60 Diagnoses Systolic heart failure I50.20 Atrial flutter, chronic I48.92 Unstable angina pectoris I20.0
[2024-06-16 11:53] LABS: Glucose Point of Care 242 mg/dL (70-110)
--- NOTE | 2024-06-16 13:32 | PC.NURSE ---
discharge instructions given and explained.pt and spouse verb understanding of instructions.discharged via w/c to exit at this time.spouse to drive pt home.
== END 2024-06-16 13:33 | disposition home or self-care (01) | DRG 291 ==
LOC: ER 06:10 → CSU 06:27
PROVIDERS: Emergency Medicine; Admitting Provider Internal Medicine; Emergency Provider Family Medicine; PCP Family Medicine; Visit Provider Student in an Organized Health Care Education/Training Program
DX: I11.0 Hypertensive heart disease with heart failure (principal); I50.23 Acute on chronic systolic (congestive) heart failure; I48.91 Unspecified atrial fibrillation; I08.1 Rheumatic disorders of both mitral and tricuspid valves; I25.10 Atherosclerotic heart disease of native coronary artery without angina pectoris; I49.8 Other specified cardiac arrhythmias; E78.49 Other hyperlipidemia; I25.5 Ischemic cardiomyopathy; E11.51 Type 2 diabetes mellitus with diabetic peripheral angiopathy without gangrene; E66.9 Obesity, unspecified; Z79.51 Long term (current) use of inhaled steroids; Z79.01 Long term (current) use of anticoagulants; Z79.84 Long term (current) use of oral hypoglycemic drugs; Z79.02 Long term (current) use of antithrombotics/antiplatelets; Z79.4 Long term (current) use of insulin; Z68.35 Body mass index [BMI] 35.0-35.9, adult; Z87.891 Personal history of nicotine dependence; Z98.890 Other specified postprocedural states; Z95.1 Presence of aortocoronary bypass graft; Z95.5 Presence of coronary angioplasty implant and graft
CPT/HCPCS: 36415; 36416; 71045; 80048; 80053; 80061; 82962; 83695; 83880; 84484; 85025; 86141; 93005; 96372; J1815; J1940; J2270; J2405; J3490

== ENCOUNTER → 2024-06-27 08:32 | Outpatient (BNVA) | payer MEDICARE, OTHER, SELFPAY | PROVIDERS: PCP Family Medicine; Visit Provider Nurse Practitioner Family | DX: I48.92 Unspecified atrial flutter (principal); I25.10 Atherosclerotic heart disease of native coronary artery without angina pectoris; I25.5 Ischemic cardiomyopathy; E87.70 Fluid overload, unspecified; R00.0 Tachycardia, unspecified; R94.31 Abnormal electrocardiogram [ECG] [EKG] | CPT/HCPCS: 93005; 99214 ==

== ENCOUNTER → 2024-08-22 12:53 | Outpatient (BNVA) | payer MEDICARE, OTHER, SELFPAY | PROVIDERS: PCP Family Medicine; Visit Provider Internal Medicine Cardiovascular Disease | DX: I11.0 Hypertensive heart disease with heart failure (principal); I50.23 Acute on chronic systolic (congestive) heart failure; Z95.1 Presence of aortocoronary bypass graft; Z87.891 Personal history of nicotine dependence | CPT/HCPCS: 99214 ==

== ENCOUNTER → 2024-11-26 15:15 | Outpatient (BNVA) | payer MEDICARE, OTHER, SELFPAY | PROVIDERS: PCP Family Medicine; Visit Provider Internal Medicine Cardiovascular Disease | DX: I25.10 Atherosclerotic heart disease of native coronary artery without angina pectoris (principal); Z95.1 Presence of aortocoronary bypass graft; I73.9 Peripheral vascular disease, unspecified; I49.3 Ventricular premature depolarization; I48.91 Unspecified atrial fibrillation; I11.0 Hypertensive heart disease with heart failure; I50.23 Acute on chronic systolic (congestive) heart failure | CPT/HCPCS: 99214 ==

== ENCOUNTER → 2024-12-12 14:48 | Outpatient (BNVA) | payer MEDICARE, OTHER, SELFPAY | PROVIDERS: PCP Family Medicine; Visit Provider Family Medicine | DX: I25.10 Atherosclerotic heart disease of native coronary artery without angina pectoris (principal); I10 Essential (primary) hypertension; I73.9 Peripheral vascular disease, unspecified; E11.9 Type 2 diabetes mellitus without complications | CPT/HCPCS: 80053; 80061; 83036 ==

== ENCOUNTER 2025-02-06 15:19 | Inpatient (IN) | payer MEDICARE, OTHER, SELFPAY ==
[2025-02-06] VITALS (11 sets, daily range): BP systolic 117–158; BP diastolic 62–94; PULSE 69–160; RESP 16–28; TEMP 36.8; O2SAT 94–99; BMI 34.2
--- NOTE | 2025-02-06 15:23 | ECG_ITS ---
[facility] Test Date: 2025-02-06 Pat Name: Dwayne Salinas Department: Room: 101 Gender: Male Drill Hand: : 1955 Requested By: Carol Ann Gutierrez Order Number: [id number] [place] MD: Patrick Moody M.D. Measurements Intervals [place] Rate: 157 P: 193 MT: 67 QRS: 168 QRSD: 201 T: 0 QT: 336 QTc: 545 Interpretive Statements SINUS TACHYCARDIA WITH SHORT MT INTERVAL, POSSIBLE ATRIAL FLUTTER RIGHT BUNDLE BRANCH BLOCK [120+ ms QRS DURATION, UPRIGHT V1, 40+ ms S IN I/aVL/V4/V5/V6] LEFT POSTERIOR FASCICULAR BLOCK [QRS AXIS > 109, INFERIOR Q] Compared to ECG 06/27/2024 08:39:32 Right bundle-branch block now present Left posterior fascicular block now present Intraventricular conduction delay no longer present T-wave abnormality no longer present Possible ischemia no longer present Electronically Signed On 02-13-2025 09:24:22 CDT by Patrick Moody M.D. [email or web address]
--- NOTE | 2025-02-06 15:24 | XR_ITS ---
WS: [id number] Exam: XR chest 1V portable [id number] Date/Time of Exam: 02/06/2025 3:31 PM Reason For Exam: Tachycardia Comparison 06/15/2024. Lungs there clear and fully expanded. Mild cardiac enlargement unchanged. No pleural effusions. Signs of median sternotomy. Permanent cardiac pacer seen over the LEFT chest. Bony structures are intact. XR/XR chest 1V portable [id number] IMPRESSION: 1. No acute cardiopulmonary process. Mild cardiac enlargement unchanged.
[2025-02-06] MEDS: dilTIAZem 5 mg/mL SDV 5 mL 10 MG IVP (15:27)
[2025-02-06] MEDS: dilTIAZem 100 MG in sodium chloride 0.9% (add-van) 100 ML IV (15:35)
--- NOTE | 2025-02-06 15:38 | W.ED.CHESTPA ---
HPI - Chest Pain General: Chief Complaint: Chest Pain Stated Complaint: v tach Time Seen by Provider: 02/06/25 15:22 History of Present Illness: 69-year-old man with a history of atrial fibrillation, coronary artery disease, status post CABG and multiple stents, chronic anticoagulation on Plavix and Eliquis, obesity, pacemaker placement, hyperlipidemia who presents emergency room by ambulance with tachycardia and chest pain. He says symptoms started at about 1 PM today. EMS provides a EKG with a rate in the 150s. This appears to be fairly regular but looks to be atrial fibrillation/flutter. He received 150 mg of amnio in the ambulance which did not change his rate at all. He is complaining of some central chest pain that radiates into his back. No fevers. No cough. No abdominal pain. No nausea or vomiting. Related Data Home Medications ?Medication ?Instructions ?Recorded ?Confirmed acetaminophen 500 mg tablet 1,000 mg PO TID PRN Pain 09/17/19 02/06/25 (Tylenol Extra Strength) cholecalciferol (vitamin D3) 50 2,000 unit PO QAM 09/17/19 02/06/25 mcg (2,000 unit) tablet [id number] 300 mcg-K 60 1 tab PO QAM 09/19/19 02/06/25 mcg-lycop 600 mcg-lutein 300 mcg tablet (Centrum Silver Men) ascorbic acid (vitamin C) 1,000 mg 1,000 mg PO QAM 04/19/22 02/06/25 tablet (Vitamin C) cyanocobalamin (vitamin B-12) 1,000 mcg PO QAM 04/19/22 02/06/25 1,000 mcg tablet (Vitamin B-12) apixaban 5 mg tablet (Eliquis) 5 mg PO BID 05/29/24 02/06/25 zinc sulfate 50 mg zinc (220 mg) 50 mg PO QAM 06/15/24 02/06/25 tablet amiodarone 200 mg tablet 200 mg PO QAM heart 02/06/25 02/06/25 furosemide 40 mg tablet (Lasix) 40 mg PO QAM 02/06/25 02/06/25 ranolazine 500 mg tablet,extended 500 mg PO BID 02/06/25 02/06/25 release,12 hr sacubitril 49 mg-valsartan 51 mg 1 tab PO BID 02/06/25 02/06/25 tablet (Entresto) spironolactone 25 mg tablet 12.5 mg PO QAM 02/06/25 02/06/25 Previous Rx's ?Medication ?Instructions ?Recorded nitroglycerin 0.4 mg sublingual 0.4 mg sublingual Q5M PRN Chest 08/23/23 tablet (Nitrostat) Pain #25 tabs blood sugar diagnostic (ReliOn #100 ea 02/05/24 Prime Test Strips) glyburide 5 mg tablet 5 mg PO QAM #90 tabs 04/01/24 carvedilol 25 mg tablet See Rx Instructions .Route 06/06/24 .COMPLEX #135 tabs tadalafil 5 mg tablet 5 mg PO DAILY Ed, prostate heatlh 06/07/24 #30 tabs canagliflozin 300 mg tablet 300 mg PO QAM #90 tabs 08/14/24 (Invokana) omeprazole 20 mg capsule,delayed 20 mg PO BID #180 caps 09/25/24 release simvastatin 20 mg tablet 20 mg PO BEDTIME #90 tabs 09/25/24 clopidogrel 75 mg tablet 75 mg PO QAM #90 tabs 12/12/24 escitalopram oxalate 10 mg tablet 10 mg PO QAM #90 tabs 12/12/24 tramadol 50 mg tablet 100 mg (2 x 50 mg) PO TID PRN Pain 12/12/24 #180 tabs Allergies Allergy/AdvReac Type Severity Reaction Status Date / Time penicillin G Allergy HIVES Verified 12/12/24 14:35 Penicillins Allergy ALGY-Hives Verified 12/12/24 14:35 propoxyphene (From Allergy VERY SHORT Verified 12/12/24 14:35 Darvocet-N) OF BREATH Review of Systems Narrative: Constitutional symptoms: Negative except as documented in HPI. Skin symptoms: Negative except as documented in HPI. Eye symptoms: Negative except as documented in HPI. ENMT symptoms: Negative except as documented in HPI. Respiratory symptoms: Negative except as documented in HPI. Cardiovascular symptoms: Negative except as documented in HPI. Gastrointestinal symptoms: Negative except as documented in HPI. Genitourinary symptoms: Negative except as documented in HPI. Musculoskeletal symptoms: Negative except as documented in HPI. Neurologic symptoms: Negative except as documented in HPI. Psychiatric symptoms: Negative except as documented in HPI. Endocrine symptoms: Negative except as documented in HPI. PFS ED PFSH: Medical History Anticoagulation adequate with anticoagulant therapy Atrial fibrillation with controlled ventricular rate Systolic congestive heart failure last echo 11/2022- LVEF 52%, trace MR. Type 2 diabetes mellitus, without long-term current use of insulin Adult-onset obesity GERD (gastroesophageal reflux disease) Anxiety PAD (peripheral artery disease) Ischemic cardiomyopathy Hypertension Hyperlipidemia CAD (coronary artery disease) Surgical History History of surgery on extremity 12/28/2014: Right groin and femoral artery exploration and primary repair of right femoral artery catheterization site History of carpal tunnel release History of femoropopliteal bypass Left common femoral artery bypass surgery performed by Dr. Carrillo on 12/15/2014 History of umbilical hernia repair History of cholecystectomy History of cardiac radiofrequency ablation S/P CABG x 3 GOMEZ to LAD, SVG to OM1, SVG to PDA Coronary angioplasty status 04/25/15: balloon angioplasty to PDA and PLB, GOMEZ to LAD patent, SVG to OM 1 patent, SVG to PDA patent. Prox RCA 60% stenosis. Family History Brother CAD (coronary artery disease) Diabetes Hyperlipidemia Hypertension Mother CAD (coronary artery disease) Cancer Diabetes Hyperlipidemia Hypertension Grandfather Cancer Father Diabetes Hyperlipidemia Hypertension Denies family history of Clotting disorder Dementia Psychiatric illness Chronic kidney disease (CKD) Suicide Anesthesia complication Bleeding disorder Family history of premature coronary artery disease Lung disease Stroke Social History Smoking and tobacco/nicotine status: former use of tobacco/nicotine Alcohol intake: never Substance/Drug Use: never Physical Exam Narrative: EXAM NARRATIVE: General: Alert, no acute distress. Skin: Warm, dry. Head: Normocephalic, atraumatic. Neck: Supple, trachea midline. Eye: Extraocular movements are intact. Ears, nose, mouth and throat: mucosa moist. Cardiovascular: Tachycardic, Normal peripheral perfusion. Respiratory: Lungs are clear to auscultation, respirations are non-labored, breath sounds are equal, Symmetrical chest wall expansion. Gastrointestinal: Soft, Nontender, Non distended Musculoskeletal: Normal ROM, no deformity. Neurological: Alert and oriented, No focal neurological deficit observed. Psychiatric: Cooperative, appropriate mood & affect. Course Vital Signs: Vital signs: Vital Signs Temperature 98.2 F 02/06/25 15:23 Pulse Rate 160 H 02/06/25 17:11 Respiratory Rate 20 H 02/06/25 17:11 Blood Pressure 130/88 02/06/25 17:11 Pulse Oximetry 98 02/06/25 17:10 Oxygen Delivery Me thod Room Air 02/06/25 17:10 Oxygen Flow Rate 3 02/06/25 16:47 MDM - Chest Pain Medical Decision Making Medical decision making: Differential diagnosis including but not limited to and based on the above HPI, review of systems and physical exam: for patient with palpitations: atrial fibrillation with rapid ventricular response. ventricular tachycardia. sinus tachycardia. PVCs. also concern for underlying issues causing tachycardia. Infection, electrolyte abnormalities and thyroid issues. Orders placed to evaluate differential diagnosis based on the above differential, HPI and physical exam EKG: Time 1523. Rate 157. Atrial fibrillation with rapid ventricular response, No ST-T changes, no ectopy, This was reviewed and interpreted by myself the ER physician at 1524. Chest x-ray: Cardiomegaly. Sternotomy wires. Medtronic pacemaker and wires. No acute process. No infiltrate. No pneumothorax. This was reviewed and interpreted by myself the emergency room physician. I also reviewed the radiology report. Lab Review: Laboratory results were reviewed and interpreted by myself the emergency room physician. No leukocytosis. Stable anemia. BUN and creatinine are slightly elevated over his baseline at 25 and 1.4. proBNP is mildly elevated at 1520, however this is been nearly exactly 1500 the last couple of times it has been measured. Troponin is 16. Consultation: I spoke with Dr. Moody with cardiology. Patient is having chest pain and has had multiple medications with no change in his rate. Dr. Moody saw him in the emergency room and has performed electrocardioversion. Recommends echocardiogram. Observation under the care of the hospitalist. I reviewed the patient's medical record. Reexamination: Patient is now in a paced rhythm. No increased work of breathing. No altered mental status. No focal motor deficits. Consultation: I spoke with Dr. Batista who is on-call for the hospital service who agrees to admission observation. Assessment and plan: A-fib with RVR Chest pain Coronary artery disease ?Initially gave Cardizem bolus and Cardizem drip. Additional amiodarone bolus was given ?Patient was electrocardioverted. ?Continue amiodarone drip. Stop Cardizem. -I discussed the patient with the hospitalist on-call who is admitting the patient. - Discussed findings and plan with patient. Answered any questions. - All laboratory values were reviewed and interpreted personally by myself, the ER physician - All imaging was reviewed and interpreted personally by myself, the ER physician. - Evaluation and treatment of this problem were appropriate in the emergency setting Lab Data 02/06/25 15:58 02/06/25 15:58 Radiology Impressions Chest X-Ray 02/06/25 15:24 IMPRESSION: 1. No acute cardiopulmonary process. Mild cardiac enlargement unchanged. Laboratory Results WBC 6.04 10^3/uL (3.29-11.43) 02/06/25 15:58 RBC 4.85 10^6/uL (3.85-5.65) 02/06/25 15:58 Hgb 9.50 g/dL (11.27-16.99) L 02/06/25 15:58 Hct 33.9 % (37-53) L 02/06/25 15:58 MCV 69.9 fl (82-101) L 02/06/25 15:58 MCH 19.6 pg (27-33) L 02/06/25 15:58 MCHC 28.0 g/dL (30-55) L 02/06/25 15:58 RDW 20.3 % (12.1-15.1) H 02/06/25 15:58 Plt Count 250 10^3/cmm (157-399) 02/06/25 15:58 MPV 9.0 fL (7.4-10.4) 02/06/25 15:58 Neut % (Auto) 63.5 % 02/06/25 15:58 Lymph % (Auto) 13.7 % 02/06/25 15:58 Duchesne % (Auto) 15.1 % 02/06/25 15:58 Eos % (Auto) 6.3 % 02/06/25 15:58 Baso % (Auto) 1.2 % 02/06/25 15:58 Neut # (Auto) 3.84 10^3/uL (1.8-7.7) 02/06/25 15:58 Lymph # (Auto) 0.8 10^3/uL (0.8-4.8) 02/06/25 15:58 Duchesne # (Auto) 0.9 10^3/uL (0.2-0.9) 02/06/25 15:58 Eos # (Auto) 0.4 10^3/uL (0.0-0.8) 02/06/25 15:58 Baso # (Auto) 0.1 10^3/uL (0.0-0.1) 02/06/25 15:58 Nucleated RBC % (auto) 0 % 02/06/25 15:58 Nucleated RBCs # 0.0 /100WBC 02/06/25 15:58 PT 15.90 SECONDS (12.1-14.9) H 02/06/25 15:58 INR 1.18 (0.8-1.2) 02/06/25 15:58 APTT 39.0 SECONDS (23.9-36.7) H 02/06/25 15:58 Sodium 134 mmol/L (136-145) L 02/06/25 15:58 Potassium 4.8 mmol/L (3.5-5.1) 02/06/25 15:58 Chloride 97 mmol/L (98-107) L 02/06/25 15:58 Carbon Dioxide 23 mmol/L (22-29) 02/06/25 15:58 Anion Gap 18.8 (5-19) 02/06/25 15:58 BUN 25 mg/dL (8-23) H 02/06/25 15:58 Creatinine 1.4 mg/dL (0.7-1.2) H 02/06/25 15:58 GFR Calculation 50.2 mL/min (90-130) L 02/06/25 15:58 Glucose 222 mg/dL (65-115) H 02/06/25 15:58 Calculated Osmolality 289 mOsm/kg (285-295) 02/06/25 15:58 Lactic Acid 1.3 mmol/L (0.5-2.2) 02/06/25 15:58 Calcium 8.7 mg/dL (8.5-10.5) 02/06/25 15:58 Magnesium 2.7 mg/dL (1.7-2.3) H 02/06/25 15:58 Total Bilirubin 0.4 mg/dL (0.15-1.2) 02/06/25 15:58 AST 13 U/L (0-40) 02/06/25 15:58 ALT 13 U/L (0-41) 02/06/25 15:58 Alkaline Phosphatase 138 U/L (40-130) H 02/06/25 15:58 Troponin T Baseline 16 ng/L (0-15) H 02/06/25 15:58 NT-Pro-B Natriuret Pep 1520 pg/mL (0-125) H 02/06/25 15:58 Total Protein 6.9 g/dL (6.6-8.7) 02/06/25 15:58 Albumin 4.2 g/dL (3.5-5.2) 02/06/25 15:58 Globulin 2.7 g/dL (1.3-4.6) 02/06/25 15:58 TSH 2.43 uIU/mL (0.27-4.20) 02/06/25 15:58 All radiology interpretation(s) finalized by discharge Discharge Plan Discharge Patient Disposition: Placed in Observation Admit Provider: Nikolai Batista Clinical Impression: Atrial fibrillation with rapid ventricular response, Chest pain, CAD (coronary artery disease) Coding Level of Care Code ED Marketing Operations Specialist for Chaparro Myers
[2025-02-06] MEDS: amiodarone 150 MG/100 ML PREMIX 400 MG IV (15:49)
--- OUTSIDE RECORDS SUMMARY | 2025-02-06 15:52 | XMS_ITS | Clinical Summary ---
Author Organization [facility] Address [address] [place] [address] Care Team Providers Care Silviculture Forester Name Role Phone DontrellTeodoro Deidra VILLANUEVA Primary Care Provider [phone] Allergies Active Allergy Reactions Criticality Noted Date Comments Penicillins Hives High 01/14/2013 Propoxyphene N-Acetaminophen Shortness o f Breath/Wheezing High 01/14/2013 Medications sildenafiL (VIAGRA) 25 mg tablet Take 20 mg by mouth 1 time daily as needed for Erectile Dysfunction. 0 Active cholecalciferol, Vitamin D3, 50 mcg (2,000 unit) Tablet Take 1,000 Units by mouth daily. 0 Active omeprazole (PriLOSEC) 20 mg Capsule, Delayed Release(E.C.) Take 20 mg by mouth 2 times daily. 9 Active escitalopram oxalate (LEXAPRO) 10 mg tablet Take 10 mg by mouth daily. 1 Active acetaminophen (TYLENOL) 500 mg Capsule Take by mouth every 4 hours as needed. 1 Active simvastatin (ZOCOR) 20 mg tablet Take 1 Tablet (20 mg) by mouth late in the day. 30 Tablet 2 6 Active carvediloL (COREG) 25 mg tablet Take 25 mg in the AM and 12.5 in the PM. 60 Tablet 3 6 Active spironolactone (ALDACTONE) 25 mg tablet Take 12.5 mg by mouth daily. Active glyBURIDE 5 mg tablet (DIABETA) Take 5 mg by mouth daily with breakfast. 2 Active metFORMIN (GLUCOPHAGE XR) 500 mg Extended Release 24 hour tablet TAKE 2 TABLETS BY MOUTH TWICE DAILY FOR DIABETES MELLITUS 2 Active nitroglycerin (NITROSTAT) 0.4 mg Tablet, Sublingual Place 1 Tablet (0.4 mg) under tongue every 5 minutes as needed for Chest Pain. 25 Tablet 3 2 Active apixaban (ELIQUIS) 5 mg tablet Take 1 Tablet (5 mg) by mouth 2 times daily. 60 Tablet 11 2 Active clopidogreL (PLAVIX) 75 mg Tablet Take 75 mg by mouth daily. 2 Active ascorbic acid (vitamin C) 1,000 mg tablet (VITAMIN C) Take 1,000 mg by mouth daily. Active cyanocobalamin (vit B-12) 1,000 mcg tablet Take 1,000 mcg by mouth daily. Active ZINC ORAL Take 50 mg by mouth. Active albuterol sulfate HFA 90 mcg/actuation aerosol inhaler 3 Active sacubitriL-valsa rtan (Entresto) 49-51 mg Tablet Take 1 Tablet by mouth 2 times daily. 60 Tablet 11 3 Active furosemide (LASIX) 40 mg tablet Take 40 mg by mouth daily. 3 Active multivitamin tablet Take 1 Tablet by mouth daily. Active traMADoL (ULTRAM) 50 mg tablet Take 50 mg by mouth every 6 hours as needed for Pain. Active amiodarone (CORDARONE) 400 mg TabletIndication s:Atrial fibrillation, unspecified type (CMS/HCC) Take 0.5 Tablets (200 mg) by mouth daily. 30 Tablet 11 4 Active canagliflozin (Invokana) 300 mg tablet Take 300 mg by mouth daily before breakfast. Active amiodarone (CORDARONE) 200 mg tablet Take 200 mg by mouth daily. Active ranolazine ER (RANEXA) 500 mg Extended Release 12 hour tablet Take 500 mg by mouth every 12 hours. Active Active Problems Problem Noted Date Diagnosed Date ICD in place - Medtronic 12/26/2024 AF (atrial fibrillation) 10/10/2024 Atrial flutter 06/06/2024 VT (ventricular tachycardia) 10/11/2023 Persistent atrial fibrillation 12/15/2022 Paroxysmal atrial fibrillation 03/10/2022 History of coronary artery bypass graft 03/10/20 History of heart artery stent 03/10/2022 Trigger finger of left hand 04/17/2020 Trigger finger of right hand 03/16/2020 Ischemic cardiomyopathy 08/20/2014 Ejection fraction < 50% 04/11/2014 Palpitations 12/03/2013 S/P radiofrequency ablation for PVCs 09/06/2013 Frequent PVCs 02/25/2013 CHF (congestive heart failure) 02/25/2013 ASHD (arteriosclerotic heart disease) 02/25/2013 Encounters Date Type Department Care Team Description 01/30/2025 Orders Only [facility] [address] [place] [phone] Yvrose Denis PA Atrial flutter, unspecified type (CMS/HCC) (Primary Dx); Paroxysmal atrial fibrillation (CMS/HCC); Atrial fibrillation, unspecified type (CMS/HCC); VT (ventricular tachycardia) (CMS/HCC) 01/29/2025 External Device Data STL ABSTRACTION Provider, Abstract 01/28/2025 External Device Data STL ABSTRACTION Provider, Abstract 01/02/2025 External Device Data STL ABSTRACTION Provider, Abstract 01/02/2025 External Device Data STL ABSTRACTION Provider, Abstract 01/01/2025 External Device Data STL ABSTRACTION Provider, Abstract 01/01/2025 External Device Data STL ABSTRACTION Provider, Abstract from Last 3 Months Immunizations Immunization Administration Dates Next Due (PNEUMOVAX 23)(50 YRS UP) PN EUMOCOCCAL POLYSACCHARIDE (PPV23) 0.5 ML, IM 05/12/2015,10/30/2002 (SHINGRIX)(50 YRS UP) ZOSTER VACCINE RECOMBINANT, 0.5 ML, IM 09/05/2022 (VAXNEUVANCE)(2-15 MOS)(18 Y RS UP) PNEUMOCOCCAL CONJUGATE (PCV15), POLYSACCHARIDE VVI655 CONJUGATE, ADJUVANT, PED 4 DOSE/ADULT 1 DOSE 0.5 ML (PF) IM 09/02/2022 INFLUENZA VACCINE HIGH DOSE QUADRIVALENT 65 YR UP PF IM 05/15/2024,05/29/2023 Influenza Seasonal Unspecified Formulation IM ,06/14/2012 Pneumococcal 7-valent conjugate vaccine IM 09/05 Td(adult) Unspecified Formulation 11/02/2022,01/2021 Zoster Vaccine Live SQ 09/25/2015 Family History Medical History Relation Name Comments Heart Disease Brother Healthy Father Cancer Mother Heart Disease Mother Relation Name Status Comments Brother Father Alive Mother Social History Tobacco Use Types Packs/Day Years Used Date Smoking Tobacco: Former Cigarettes Q uit: 10/14/1984 Smokeless Tobacco: Former Quit: 10/14/1984 Tobacco Cessation:Counseling Given: Not Answered Alcohol Use Standard Drinks/Week Comments No 0 (1 standard drink = 0.6 oz pur e alcohol) Feeling Safe Answer Date Recorded Are you in a relationship wi th someone who hurts you emotionally and/or physically? 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 Gender Identity Not on file Sexual Orientation Not on file Last Filed Vital Signs Vital Sign Reading Time Taken Comments Blood Pressure 119/55 10/23/2024 4:00 PM CDT Pulse 76 10/23/2024 4:00 PM CDT Temperature 36.4 C (97.5 F) 10/23/2024 12:50 PM CDT Respiratory Rate 12 10/23/2024 4:00 PM CDT Oxygen Saturation 96% 10/23/2024 4:00 PM CDT Inhaled Oxygen Concentration - - Weight 110.1 kg (242 lb 11.6 oz) 10/23/2024 7:04 AM CDT Height 180.3 cm (5' 11 ) 10/23/2024 7:04 AM CDT Body Mass Index 33.85 10/23/2024 7:04 AM CDT Plan of Treatment Upcoming Encounters Date Type Department Care Team (Late st Contact Info) Description 02/17/2025 10:20 AM CDT Office Visit [facility] [address] [place] [phone] Ana Denis MD [address] [place] [phone] Yvrose Denis PA [address] [place] [phone] 04/09/2025 11:00 AM CDT Office Visit [facility] [address] [place] [phone] Ana Denis MD [address] [place] [phone] Yvrose Denis PA [address] [place] [phone] Health Maintenance Due Date Last Done Comments Pre-Diabetes and Diabetes Screening 1955 COLORECTAL SCREENING 2000 Colorectal Cancer Screening 2000 FIT-DNA Q 3 years 2000 FIT/FOBT Q 1 year 2000 Flex Sig/CT Colonography Q 5 years 2000 RSV VACCINE (60+ or ) (1 - Risk 60-74 years 1-dose series) 2015 Abdominal Aortic Aneurysm (A AA) Screening 2020 ZOSTER VACCINE (3 of 3) 10/31/2022 09/05/2022, 09/25 DTAP/TDAP/TD VACCINES (1 - Tdap) 11/03/2022 11/03/19 23, 08/19/2020 PNEUMOCOCCAL VACCINE 50+ YEARS Completed 0 09/05/2022, 09/02/2022, 05/12/2015, Additional history exists INFLUENZA VACCINE Completed 05/15/2024, , 04/25/2022, Additional history exists Medical Devices Implanted Type Area Group Counselor Device Identifier Shelf Expiration Date Model / Serial / Lot Defib Icd Matteson Xt Mri [id number] Dual Chmbr Surescan [id number] - [id number] Implanted:Qty: 1 on 11/01/2023 by Ana Denis MD at [facility] Defibrillator N/A: Chest MEDTRONIC- CARD RHYTHM MGMT [id number] 03/10/2025 [id number] / [id number] / Lead Sprint Quattro 62cm [id number] - Csc - [id number] Implanted:Qty: 1 on 11/01/2023 by Ana Denis MD at [facility] Lead N/A: Chest [employer]- CRM - BULK BUY [id number] 05/18/2024 [id number] / [id number] / Lead Capsurefix Novus Mri 52cm Endocardial Pacing 5076-52 - [id number] Implanted:Qty: 1 on 11/01/2023 by Ana Denis MD at [facility] Lead N/A: Chest [employer]- CRM - BULK BUY [id number] 07/26/2025 5076-52 / [id number] / Insurance MEDICARE PART A AND B [place] [employer] [facility] * Guarantor: DWAYNE WERNER Account Type Relation to Patient Date of Phone Billing Address Personal/Family [address] [place] [address] RX [facility] Medicare Part D Advance Directives For more information, please contact: [phone] * Full Code (Latest Code Status on File) Date Activated Date Inactivated Comments 10/23/2024 1:11 PM 10/23/2024 9:42 PM * Full Code Date Activated Date Inactivated Comments 10/23/2024 5:57 AM 10/23/2024 1:11 PM * Full Code Date Activated Date Inactivated Comments 07/03/2024 7:44 AM 07/03/2024 1:46 PM * Full Code Date Activated Date Inactivated Comments 11/01/2023 2:40 PM 11/01/2023 7:27 PM * Full Code Date Activated Date Inactivated Comments 11/01/2023 11:32 AM 11/01/2023 2:40 PM Care Teams Silviculture Forester Relationship Specialty Start Date End Date Teodoro Jon DO [address] [place] [phone] PCP - General 11/28/20
--- OUTSIDE RECORDS SUMMARY | 2025-02-06 15:52 | XMS_ITS | Encounter Summary ---
Author Organization [facility] Address [address] [place] [address] Care Team Providers Care Pediatric Dietician Name Role Phone Teodoro Jon DO Primary Care Provider Encounter Details Date Type Department Care Team (Late st Contact Info) Description 08/01/2002 Outpatient Historical [facility]- [facility] [address] [place] [address] Audie Rosales Jr., MD [address] [place] [phone] Social History Tobacco Use Types Packs/Day Years Used Date Smoking Tobacco: Never Assessed Sex and Gender Information Value Date Recorded Sex Assigned at Not on file 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
--- OUTSIDE RECORDS SUMMARY | 2025-02-06 15:52 | XMS_ITS | Encounter Summary ---
Author Organization [employer] [facility] Address [address] [place] [address] Care Team Providers Care Graduate Internship Name Role Phone Teodoro Jon DO Primary Care Provider [phone] Encounter Details Date Type Department Care Team (Latest Contact Info) Description 08/01/2002 Outpatient Historical [facility] Audie Rosales Jr., MD [address] [place] [phone] HYPERTENSION NOS (Primary Dx); OSTEOARTHROS NOS-UNSPEC Social History Tobacco Use Types Packs/Day Years Used Date Smoking Tobacco: Never Assessed Sex and Gender Information Value Date Recorded Sex Assigned at Not on file 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
--- OUTSIDE RECORDS SUMMARY | 2025-02-06 15:52 | XMS_ITS | Encounter Summary ---
Author Organization [employer] [facility] Address [address] [place] [address] Care Team Providers Care Tool Crib Supervisor Name Role Phone Teodoro Jon DO Primary Care Provider [phone] Encounter Details Date Type Department Care Team (Latest Contact Info) Description 01/29/2003 Outpatient Historical HIS [facility] Audie Rosales Jr., MD [address] [place] [address] LIPOID METABOL DIS NOS (Primary Dx); HYPERTENSION NOS Social History Tobacco Use Types Packs/Day Years Used Date Smoking Tobacco: Never Assessed Sex and Gender Information Value Date Recorded Sex Assigned at Not on file 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
--- OUTSIDE RECORDS SUMMARY | 2025-02-06 15:52 | XMS_ITS | Encounter Summary ---
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
--- OUTSIDE RECORDS SUMMARY | 2025-02-06 15:52 | XMS_ITS | Patient Health Record ---
Author Organization [facility] Address [address] [place] [address] Care Team Providers Care Nutrition Services Aide Name Role Phone Audie Rosales Unavailable [phone] Allergies Allergen (clinical drug ingredient) Drug/Non Drug Allergy documented on EMR Reaction Allergy Type Onset Date Status DARVOCET Unknown Drug Allergy Active PENICILLIN Unknown Drug Allergy Active Substance with penicillin structure and antibacterial mechanism of action (substance) Penicillins Unknown Drug Allergy 08/18/2003 Active Reason For Referral No Information Medications Medication SIG (Take, Route, Frequency, Duration) Notes Start Date End Date Status NITROGLYCERIN PATCH 0.6 mg/hr Apply 1 patch topically as directed once daily Transdermal for 30 *please review for potential update for e-prescription and drug interaction check* Nitroglycerin 0.6mg Transdermal Patch Apply 1 patch topically as directed once daily 01/30/2014 Active metFORMIN HCl ER 500 MG Take 4 tab(s) by mouth q supper Oral for 30 Metformin HCl (Metformin HCl) 500mg Tablets, Extended Release Take 4 tab(s) by mouth q supper #180 ([address] [place] [address]) tablet(s) 12/23/2013 Active Furosemide 20 MG Take 1 tablet(s) by mouth daily in am Oral for 30 Furosemide 20mg Tablets Take 1 tablet(s) by mouth daily in am #30 (Thirty) tablet(s) 01/30/2014 Active Spironolactone 25 MG Take 1 tablet(s) by mouth daily Oral for 30 Spironolactone 25mg Tablet Take 1 tablet(s) by mouth daily #30 (Thirty) tablet(s) 01/30/2014 Active Isosorbide Mononitrate ER 60 MG Take 1 tablet(s) by mouth qam Oral for 30 Isosorbide Mononitrate 60mg Tablets, Extended Release Take 1 tablet(s) by mouth qam #30 (Thirty) tablet(s) 01/30/2014 Active Aspirin 81 MG 1 tab(s) po qd Oral for 30 Aspirin (ASA) 81mg Chewable Tablet 1 tab(s) po qd 02/22/2013 Active Nitroglycerin 0.6 mg Dissolve 1 tablet(s) under the tongue may repeat every 5 minutes. Maximum of 3 doses in 15 minutes Sublingual for 30 Nitroglycerin 0.6mg Tablets, Sublingual Dissolve 1 tablet(s) under the tongue may repeat every 5 minutes. Maximum of 3 doses in 15 minutes #4 (Four) 100 tablet bottle 01/11/2013 Active Tradjenta 5 MG Take 1 tablet(s) by mouth daily Oral for 30 Tradjenta 5mg Tablet Take 1 tablet(s) by mouth daily Quantity: 0 12/23/2013 Active Crestor 10 MG Take 1 tablet(s) by mouth daily Oral for 30 Crestor (Rosuvastatin) 10mg Tablet Take 1 tablet(s) by mouth daily QS for 90 day(s) 05/02/2012 Active Cozaar 50 MG Take 2 tablet(s) by mouth daily Oral for 30 Cozaar (Losartan) 50mg Tablet Take 2 tablet(s) by mouth daily #60 (Sixty) tablet(s) 11/15/2013 Active Coreg 25 mg Take 1 tablet(s) by mouth bid Oral for 30 Coreg (Carvedilol) 25mg Tablet Take 1 tablet(s) by mouth bid #60 (Sixty) tablet(s) 08/05/2013 Active Immunizations Vaccine Route Administration Date Status Comme nts Flu vaccine no Preserv 3 and > IM Intramuscular 05/12/2010 Administered Flu vaccine no Preserv 3 and > Unknown 05/25/2011 Administered Flu vaccine no Preserv 3 and > IM Intramuscular 05/24/2012 Administered Flu vaccine no Preserv 3 and > IM Intramuscular 05/24/2013 Administered Pneumococcal polysaccharide PPV23 IM Intramuscular 07/23/2010 Administered Problems Problem Type SNOMED Code ICD Code Onset Dates Problem Status W/U Status Risk Notes Problem Angina (105098164) Other and unspecified angina pectoris (413.9) [place] [facility] [place] [address] Problem Vitamin B-complex deficiency (184830335) Deficiency of B-complex vitamins (266.2) 2013 Active confirmed [facility] [id number]- Problem Lumbosacral spondylosis without myelopathy (51355023) 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 Active confirmed [id number] [id number]- Problem Congestive heart failure (43835798) Congestive heart failure (428.0) 2014 Active confirmed [facility] 5911- Problem Coronary artery disease (39880217) CAD (414.01) 2012 Active confirmed [facility] 5911- Problem Impotence of organic origin (365588828) Erectile dysfunction secondary to diabetes (607.84) 2018 Active confirmed [facility] 5911- Problem Type II diabetes mellitus without complication (355361507) Type II diabetes (250.00) 2014 Active confirmed [facility] 5911- Problem Type II diabetes mellitus without complication (863960509) Type 2 diabetes (250.00) 2010 Active confirmed [facility]- Problem Hyperparathyroidism (36884031) Hyperparathyroidism (252.0) 2003 Problem resolved confirmed [facility] 5911- Problem Pityriasis versicolo r (90287574) Pityriasis versicolor (111.0) 2005 Problem resolved confirmed [facility]- Problem Obstructive sleep apnea syndrome (70829846) Obstructive sleep apnea (adult) (pediatric) (327.23) 2017 Problem resolved confirmed [facility]- Problem Carpal tunnel syndrome (34939795) Carpal tunnel syndrome (354.0) 2016 Problem resolved confirmed [facility] 5911- Problem Benign essential hypertension (7225749) Essential hypertension, benign (401.1) 2003 Problem resolved confirmed [facility]- Problem Seborrhea (68142534) Seborrhea (706.3) 2012 Problem resolved confirmed [facility] 5911- Problem Stress fracture (479607335) Stress fracture of other bone (733.95) 2003 Problem resolved confirmed [facility]11- Problem Edema (549437047) Edema (782.3) 2011 Problem resolved confirmed [facility]11- Problem Headache (09569715) Headache (784.0) 11/12 Problem resolved confirmed [facility]- Problem Cough (31267358) Cough (786.2) 2018 Problem resolved confirmed [facility] 5911- Problem Chest pain (80342885) Chest pain , unspecified (786.50) 2016 Problem resolved confirmed [facility]- Problem Basal cell carcinoma of face (718334438) Basal cell carcinoma of skin of other and unspecified parts of face (173.31) 2016 Problem resolved confirmed [facility]- Problem Restless legs (94680525) Restless legs syndrome (RLS) (333.94) 2009 Problem resolved confirmed [facility]- Problem Depression (125654387) Depression (311) 2007 Problem resolved confirmed [facility]- Problem Dizziness (053545149) Dizziness (780.4) 0 2009 Problem resolved confirmed [facility]- Problem Umbilical hernia (594872454) Umbilical hernia (553.1) 2006 Problem resolved confirmed [facility]- Problem Orchitis and epididymitis (666778997) Epidymitis, unspecified (604.90) 2014 Problem resolved confirmed [facility]- Problem Hypercholesterolemia (76214098) Hypercholesterolemia (272.0) 2009 Problem resolved confirmed [facility]- Problem Hypotension (45241831) Hypotension, other (458.8) 2016 Problem resolved confirmed [facility]- Problem Swelling of limb (16148165) Lower extremity swelling (729.81) 2014 Problem resolved confirmed [facility]- Problem Osteoarthritis of knee (923445465) Osteoarthritis of knee (715.16) 2014 Problem resolved confirmed [facility]- Problem Screening for ca ncer - other (V76.49) 2012 Problem resolved confirmed [facility]- Problem Shortness of breath (110398342) Shortness of breath (786.09) 2006 Problem resolved confirmed [facility]- Problem Onychomycosis caused by dermatophyte (425564535) Toe onychomycosis (110.1) 2017 Problem resolved confirmed [facility]- Problem Vaccination agai nst Streptococcus pneumoniae [pneumococcus] (V03.82) 2009 Problem resolved confirmed [facility]- Problem Screening for colon cancer (352521019) Screening for colon cancer (V76.49) 2015 Problem resolved confirmed [facility]- Problem Angina (282258021) Angina (413.9) 2011 Problem resolved confirmed [facility]- Problem Anosmia (76556314) Anosmia (781.1) 2016 Problem resolved confirmed [facility]- Problem Contusion of multipl e sites of upper limb (97834183) Multiple contusions of upper limb (923.8) 2015 Problem resolved confirmed [facility]- Problem Disorder of hematopoietic system (82678829) Other abnormal findings on blood examination (790.99) 2014 Problem resolved confirmed [facility]- Problem Pain in testicle (38851463) Testicular pain (608.89) 2014 Problem resolved confirmed [facility]- Problem Chest pain (91708461) Chest pain (786.51) 2011 Problem resolved confirmed [facility]- Problem Chronic combined systolic and diastolic heart failure (919409247477533) Combined systolic and diastolic heart failure, chronic (428.42) 2014 Problem resolved confirmed [facility]- Problem Earache (39349331) Earache (388.71) 08/15 Problem resolved confirmed [facility]- Problem Generalized abdomina l pain (433530558) Generalized abdominal pain (789.07) 2005 Problem resolved confirmed [facility]- Problem Generalized osteoarthritis (602833448) Generalized osteoarthritis, multiple sites (715.09) 2003 Problem resolved confirmed [facility]- Problem Hematochezia (455800811) Hematochezia (578.1) 2005 Problem resolved confirmed [facility]- Problem Internal hemorrhoids (72664443) Hemorrhoids, internal (455.0) 2005 Problem resolved confirmed [facility]- Problem Psychosexual dysfunction associated with inhibited sexual excitement (503533113462366) Impotence (302.72) 2006 Problem resolved confirmed [facility]- Problem Lab: Used to mat ch unlinked laboratory orders (V92) 2014 Problem resolved confirmed [facility]- Problem Generalized anxiety disorder (85739749) TESSA (300.02) 2015 Problem resolved confirmed [facility]- Problem Hand pain (78331652) Hand pain (729.5) 2017 Problem resolved confirmed [facility] 5911- Problem Intermittent claudication due to atherosclerosis of [place] artery of limb (1343275818324) Intermittent claudication secondary to arteriosclerosis (440.21) 2013 Problem resolved confirmed [facility]- Problem Foot pain (91538800) Foot pain (729.5) 2004 Problem resolved confirmed [facility]- Problem Hypertension (90348530) Hypertension (401.1) 2009 Problem resolved confirmed [facility]- Problem Hypotension (75285609) Hypotension (458.8) 2012 Problem resolved confirmed [facility]- Problem Pain in limb (96708022) Leg pain (729.5) 2006 Problem resolved confirmed [facility]- Problem Precordial pain (93258862) Precordial chest pain (786.51) 2006 Problem resolved confirmed [facility]- Problem Screening for malignant neoplasm of colon (365740336) Screening for colorectal cancer (V76.49) 2013 Problem resolved confirmed [facility]- Problem General examination of patient (252669869) Annual exam (V70.0) 2008 Problem resolved confirmed [facility]- Problem Cardiac arrhythmia (064211650) Bigeminy (427.89) 2012 Problem resolved confirmed [facility]- Problem Chronic gastric ulce r without hemorrhage, without perforation AND without obstruction (9384175) Chronic gastric ulcer, without mention of obstruction (531.70) 2012 Problem resolved confirmed [facility]- Problem Epistaxis (62850511) Nose bleedi ng (784.7) 2005 Problem resolved confirmed [facility]- Problem Anxiety state (369143533) Situational stress with anxiety (300.09) 2012 Problem resolved confirmed [facility]- Problem Peripheral circulatory disorder associated with type II diabetes mellitus (789809788) Uncontrolled NIDDM with PVD (250.72) 2007 Problem resolved confirmed [facility]- Problem Unstable angina (1691862) Unstable angina (411.1) 2013 Problem resolved confirmed [facility]- Problem Urinary tract infection (79170033) UTI (595.0) 2009 Problem resolved confirmed [facility]- Problem Needs influenza immunization (300799248) Vaccination against other viral diseases, Influenza (V04.81) 2011 Problem resolved confirmed [facility]- Problem Weak urinary stream (894019956) Weak urinary stream (788.62) 2017 Problem resolved confirmed [facility]- Problem Acute stress reaction with anxiety (308.0) 2014 Problem resolved confirmed [facility]- Problem Acute upper respiratory infection (18452716) Acute upper respiratory infection (465.8) 2004 Problem resolved confirmed [facility]- Problem Impacted cerumen (04442617) Cerumen impaction (380.4) 2007 Problem resolved confirmed [facility]- Problem Chest pain (97848278) Chest pain , other type (786.59) 2016 Problem resolved confirmed [facility]- Problem Coronary artery disease (97164365) Coronary artery disease (414.01) 2007 Problem resolved confirmed [facility]- Problem Syncope and collapse (479917052) Near-syncope (780.2) 2016 Problem resolved confirmed [facility]- Problem Osteoarthritis of shoulder (73090275) Osteoarthritis of shoulder (715.11) 2016 Problem resolved confirmed [facility]- Problem Acute otitis media (3206586) Acute otitis media (382.00) 2013 Problem resolved confirmed [facility]- Problem Anxiety (66629428) Anxiety (300.02) 04/01 Problem resolved confirmed [facility]- Problem Carotid artery stenosis (52653232) Carotid artery stenosis (785.9) 2016 Problem resolved confirmed [facility]- Problem Cervical radiculopathy (12471199) Cervical radiculopathy (723.4) 2016 Problem resolved confirmed [facility]- Problem Congestive heart failure (88743826) CHF (428.0) 2016 Problem resolved confirmed [facility]- Problem Constipation (24834538) Constipation (564.01) 2014 Problem resolved confirmed [facility]- Problem Diabetic neuropa thy with moderate loss of protective sensation in feet (250.6) 2008 Problem resolved confirmed [facility]- Problem Follow-up exam - other (V67.59) 2016 Problem resolved confirmed [facility]- Problem Knee pain (7060424782) Knee pain (719.46) 2013 Problem resolved confirmed [facility]- Problem Adjustment disorder with depressed mood (17885589) Bereavement adjustment reaction (309.0) 2017 Problem resolved confirmed [facility]- Problem Bradycardia (93193323) Bradycardia (427.89) 2011 Problem resolved confirmed [facility]- Problem Erectile dysfunction (624883464) Erectile dysfunction (302.72) 2004 Problem resolved confirmed [facility]- Problem Acute gastritis (14402833) Gastritis, acute (535.00) 2016 Problem resolved confirmed [facility]- Problem Acute systolic heart failure (350080876) Systolic heart failure, acute (428.21) 2011 Problem resolved confirmed [facility] 5911- Problem Abnormal laborat ory test findings without diagnosis (796.4) 2012 Problem resolved confirmed [facility]- Problem Acquired trigger finger (0813175) Acquired trigger finger (727.03) 2018 Problem resolved confirmed [facility]- Problem Chest discomfort (879813738) Chest discomfort (786.59) 2013 Problem resolved confirmed [facility] 5911- Problem Benign hypertensive heart disease with congestive cardiac failure (932083360) CHF due to chronic HTN (402.11) 2011 Problem resolved confirmed [facility] 5911- Problem Bilateral inguinal hernia (52032126) Uncomplicated bilateral hernias (550.92) 2006 Problem resolved confirmed [facility]- Problem Vitamin D deficiency (30492211) Vitamin D deficiency, unspecified (268.9) 2015 Problem resolved confirmed [facility]- Problem Low back pain (096838706) Lower back pain (724.2) 2009 Problem resolved confirmed [facility]- Problem Muscle pain (28607839) Muscle aches (729.1) 2015 Problem resolved confirmed [facility]- Problem Coronary arteriosclerosis in [place] artery (4901296114487) Coronary artery disease, of [place] coronary artery (414.01) 2010 Problem resolved confirmed [facility]- Problem Essential hypertension (77462049) Essential hypertension (401.1) 2004 Problem resolved confirmed [facility]- Problem Finger pain (80002598) Finger pain (729.5) 2016 Problem resolved confirmed [facility]- Problem Gastroesophageal reflux disease (619790102) GERD (530.81) 2016 Problem resolved confirmed [facility]- Problem Hypertension (18131597) HTN (401.1) 2003 Problem resolved confirmed [facility]- Problem Type II Diabetes Mellitus without complication (771012671) NIDDM (250.00) 2007 Problem resolved confirmed [facility]- Problem Visual disturbance (38677005) Other specified visual disturbance (368.8) 2016 Problem resolved confirmed [facility]- Problem Primary hypercholesterolemia (687523457) Primary hypercholesterolemia (272.0) 2004 Problem resolved confirmed [facility]- Problem Localized, primary osteoarthritis of the shoulder region (294148815) Primary localized osteoarthritis, shoulder region (715.11) 2003 Problem resolved confirmed [facility] 5911- Problem Tendonitis (20924416) Tendonitis (726.90) 2016 Problem resolved confirmed [facility]- Problem Androgen deficiency (91559720) Testosterone deficiency (259.8) 2005 Problem resolved confirmed [facility]11- Problem Thoracic back pain (738641890) Upper back pain (724.5) 2018 Problem resolved confirmed [facility]- Problem Coronary artery disease (40481093) CAD (414.0) 2014 Problem resolved confirmed [facility] 5911- Plan Of Treatment No Information Medical (General) History Surgical History Surgery Date(Month/Year) Positive forCholecystectomy: 2005; ; Positive forCataract Removal andCardiac Ablation ;; PTCA (Coronary Angioplasty): 1983;
--- OUTSIDE RECORDS SUMMARY | 2025-02-06 15:52 | XMS_ITS | Encounter Summary ---
Author Organization [employer] [facility] Address [address] [place] [address] Care Team Providers Care Mental Health Technician Name Role Phone Teodoro Jon DO Primary Care Provider [phone] Encounter Details Date Type Department Care Team (Latest Contact Info) Description 11/29/2001 Outpatient Historical HIS [facility] Audie Rosales Jr., MD [address] [place] [phone] ABN BLOOD CHEMISTRY NEC (Primary Dx) Social History Tobacco Use Types Packs/Day Years Used Date Smoking Tobacco: Never Assessed Sex and Gender Information Value Date Recorded Sex Assigned at Not on file 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
--- OUTSIDE RECORDS SUMMARY | 2025-02-06 15:52 | XMS_ITS | Encounter Summary ---
Author Organization [employer] [facility] Address [address] [place] [address] Care Team Providers Care Bottom Finisher Name Role Phone Teodoro Jon DO Primary Care Provider [phone] Encounter Details Date Type Department Care Team (Latest Contact Info) Description 10/30/2002 Outpatient Historical [facility] Audie Rosales Jr., MD [address] [place] [id number] DIABETES UNCOMPL ADULT-TYPE II (CMS/HCC) (Primary Dx); HYPERTENSION NOS; Pure hypercholesterolem; VACCINE FOR STREP PNEUMONIAE Social History Tobacco Use Types Packs/Day Years Used Date Smoking Tobacco: Never Assessed Sex and Gender Information Value Date Recorded Sex Assigned at Not on file 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 Gender Identity Not on file Sexual Orientation Not on file documented as of this encounter Plan of Treatment Not on file documented as of this encounter Visit Diagnoses Diagnosis Type II or unspecified type diabetes mellitus without mention of complication, not stated as uncontrolled- Primary Unspecified essential hypertension Pure hypercholesterolem Pure hypercholesterolemia Need for prophylactic vaccination against Streptococcus pneumoniae (pneumococcus) Need for prophylactic vaccination against streptococcus pneumoniae (pneumococcus) documented in this encounter Care Teams Bottom Finisher Relationship Specialty Start Date End Date Teodoro Jon DO [address] [place] [phone] PCP - General Family Practice 03/19/20 documented as of this encounter
--- OUTSIDE RECORDS SUMMARY | 2025-02-06 15:52 | XMS_ITS | Data Portability ---
Author Organization [facility]iat Puentes [facility] Address [address] [facility] [address] [place] [address] Assessment Encounter Date Assessment Date Assessment LastModified by Organization Details LastModified Time 01/16/2025 01/16/2025 A Care Coordination Assessment form was filled out as part of this patient's office visit today. [email or web address] Not available 01/16/2025 12:04:25 Plan of Treatment Reminders Order Date Submit Date Provider Last Modified By Organization Details Last Modified Time Details Appointments [facility] 2024 02:30P Tomy Cortez, DO Not available Not available Not available Lab None recorded. Referral None recorded. Procedures colonosco py, with removal of tumor, polyp or lesion (PROC) [email or web address] [facility], [address] , [place], [address], 01/28/2025 12:47:58 Surgeries None recorded. Imaging None recorded. Medication Orders prednison e 20 mg tablet 2022 023 [facility], [address], [place], [address], 10/26/2024 15:48:48 doxycycli ne hyclate 100 mg capsule 2022 023 [facility], [address], [place], [address], 10/26/2024 15:48:38 meloxicam 15 mg tablet 2022 023 [email or web address] [facility], [address] [facility], [place], [address], 01/16/2025 11:59:10 Patient TargetsNo targets recorded. Patient Instructions Encounter Date Encounter Id Patient Instructions Last Modified By Organization Details Last Modified Time 11/21/2022 [id number] Patient honey carter take him to the ER by private vehicle. 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 Report is given to the ER by nursing staff. [email or web address] Not available 11/21/2022 21:08:26 Reason for Referral None Reported. Problems Name Problem SNOMED Code Status Onset Date Resolution Date Notes Provider Name and Address Organization Details Recorded Time Heart disease 54831353 Active 2022 Heart Disease ; 023 9:31AM by TITO Perez, Office Visit; Promote d; acuity set as *; Not Available [facility] 3 03:10:34 History of anxiety state 941721465 Active 2022 Anxiety /Depres romelia; 023 9:31AM by TITO Perez, Office Visit; Promote d; acuity set as *; Not Available [facility] 3 03:10:34 Hypercholest erolemia 63425968 Active 2022 Hyperch olester olemia; 023 9:31AM by TITO Perez, Office Visit; Promote d; acuity set as *; Not Available [facility] 3 03:10:34 Benign essential hypertension 0051097 Active 2022 Hyperte nsion; 023 9:31AM by TITO Perez, Office Visit; Promote d; acuity set as *; Not Available [facility] 3 03:10:35 Acute bronchitis 02445998 Active 2022 Armin Cortez DO [address] [place], [address] , [facility] 13:50:47 Screening for malignant neoplasm of colon Active 2024 Armin Cortez DO [address] [place] [address], [phone] , [facility] 12:04:47 Essential hypertension 38319929 Active 2024 Armin Cortez [address], [address] , [facility] 12:15:13 Mixed hyperlipidem ia 175769027 Active 2024 Armin Cortez [address], [address] , [facility] 12:15:15 Chronic systolic heart failure 481678035 Active 2024 Armin Cortez [place] [address] , [facility] 12:15:16 History of atrial fibrillation 740729351 Active 2024 Armin Cortez [address] , [facility] 12:16:20 Gastroesopha geal reflux disease 043744720 Active 2024 Armin Cortez [place] [address] , [facility] 12:16:21 Problem Notes None recorded. Procedures Surgical History Date Name Laterality Status Provider Name and Address Organization Details Recorded Time jr suture/stapl e removal completed TITO JOHNSON [address] [place] [address], [phone], [facility] 10/26/2024 17:18:26 Imaging Results None recorded. Procedure Notes None recorded. Medical Equipment None Reported. Allergies Allergen ID Allergen Name Allergen Category Reaction Reaction Severity Criticality Documentation Date Start Date Code Code System Note Provider Name and Address Organization Details Recorded Time 49711 propoxyph blessing hydrochlo ride medicatio n rash Not available Not available 03/11/2023 60952 RxNorm React ion: Rash; Comme nt: Recor ded 09/28 9:31A M by Patricia hobbs, LATHE SANDER, Offic e Visit ; Promo qian; Signi sebastien ce: *; Reaso n: Drug aller gy; ; Not Available [facility] 3 02:23:45 08124 Product containin g penicilli n (product) medicatio n anaphylax is Not available Not available 03/11/2023 37393 8001 SNOMED React ion: Anaph ylaxi s; Comme nt: Recor ded 09/28 9:31A M by Patricia hobbs, LATHE SANDER, Offic e Visit ; Promo qian; Signmary crowe ce: *; ; Not Available [facility] 3 02:23:45 Medications Name Sig Start Date Stop Date Status Note LastModified by Organization Details LastModified Time furosemid e 40 mg tablet TAKE 1 TABLET BY MOUTH ONCE DAILY active Not Available Not Available No t Available metolazon e 2.5 mg tablet TAKE 1 TABLET BY MOUTH ONCE DAILY FOR 10 DAYS 01/16 completed Not Available Not Available Not Available fluconazo le 100 mg tablet TAKE 1 TABLET BY MOUTH ONCE DAILY FOR 3 DAYS 01/16 completed Not Available Not Available Not Available promethaz ine-DM 6.25 mg-15 mg/5 mL oral syrup TAKE 5 ML BY MOUTH EVERY 4 HOURS NEEDED FOR COUGH 01/16 completed Not Available Not Available Not Available carvedilo l 25 mg tablet TAKE 1 TABLET BY MOUTH ONCE DAILY IN THE MORNING AND 1/2 (ONE-MALISSA F) ONCE DAILY IN THE EVENING active Not Available Not Available No t Available Tylenol 500 mg capsule take one tablet with tramadol active 0; Recorded 12/19/19 22 10:28AM by Maurice Alcantar RN, Office Visit; Not Available Not Available Not Available doxycycli ne hyclate 100 mg capsule Take 1 capsule twice a day by oral route for 10 days. 10/26 completed Not Available Not Available Not Available enalapril maleate 5 mg tablet TAKE 1 TABLET BY MOUTH TWICE DAILY 06/16 completed Not Available Not Available Not Available azithromy jose 250 mg tablet 06/16 completed Not Available Not Available Not Available glyburide 5 mg tablet TAKE 1 TABLET BY MOUTH IN THE MORNING PRIOR TO FIRST MEAL OF THE DAY active Not Available Not Available No t Available amiodaron e 200 mg tablet TAKE 1 TABLET BY MOUTH ONCE DAILY FOR HEART active Not Available Not Available No t Available glyburide 2.5 mg tablet TAKE 1 TABLET BY MOUTH ONCE DAILY IN THE MORNING PRIOR TO FIRST MEAL OF THE DAY 06/16 completed Not Available Not Available Not Available meloxicam 15 mg tablet Take 1 tablet every day by oral route for 14 days. 01/16 completed Not Available Not Available Not Available prednison e 20 mg tablet Take 2 tablets every day by oral route for 7 days. 10/26 completed Not Available Not Available Not Available isosorbid e mononitra te ER 30 mg tablet,ex tended release 24 hr TAKE 1 TABLET BY MOUTH DAILY 06/16 completed Not Available Not Available Not Available clopidogr el 75 mg tablet TAKE 1 TABLET BY MOUTH IN THE MORNING active Not Available Not Available No t Available ciproflox acin 500 mg tablet 06/16 completed Not Available Not Available Not Available doxycycli ne monohydra te 100 mg tablet TAKE 1 TABLET BY MOUTH TWICE DAILY FOR 3 DAYS 06/16 completed Not Available Not Available Not Available tramadol 50 mg tablet TAKE 2 TABLETS BY MOUTH THREE TIMES DAILY NEEDED FOR PAIN active Not Available Not Available No t Available spironola ctone 25 mg tablet TAKE 1/2 (ONE-MALISSA F) TABLET BY MOUTH ONCE DAILY IN THE MORNING active Not Available Not Available No t Available isosorbid e mononitra te ER 60 mg tablet,ex tended release 24 hr TAKE 1 TABLET BY MOUTH ONCE DAILY 01/16 completed Not Available Not Available Not Available potassium chloride ER 20 mEq tablet,ex tended release(p art/cryst ) TAKE 1/2 (ONE-MALISSA F) TABLET BY MOUTH ONCE DAILY FOR 30 DAYS 01/16 completed Not Available Not Available Not Available amiodaron e 400 mg tablet TAKE 1 TABLET BY MOUTH ONCE DAILY 01/16 completed Not Available Not Available Not Available simvastat in 20 mg tablet TAKE 1 TABLET BY MOUTH AT BEDTIME active Not Available Not Available No t Available nitroglyc stevie 0.4 mg sublingua l tablet 07/04 completed 1 tablet under the tongue prn for chest pain, up to 3 tablets five minutes apart; 0; Recorded 12/19/19 22 10:28AM by Maurice Alcantar RN, Office Visit; Not Available Not Available Not Available omeprazol e 20 mg capsule,d elayed release TAKE 1 CAPSULE BY MOUTH TWICE DAILY active Not Available Not Available No t Available furosemid e 20 mg tablet TAKE 1 TABLET BY MOUTH IN THE MORNING 06/16 completed Not Available Not Available Not Available albuterol sulfate HFA 90 mcg/actua tion aerosol inhaler every four hours, as needed active Not Available Not Available No t Available glyburide 1.25 mg tablet TAKE 1 TABLET BY MOUTH ONCE DAILY BEFORE FIRST MEAL OF THE DAY 01/16 completed Not Available Not Available Not Available metformin ER 500 mg tablet,ex tended release 24 hr TAKE 2 TABLETS BY MOUTH TWICE DAILY 01/16 completed Not Available Not Available Not Available escitalop sanjana 10 mg tablet TAKE 1 TABLET BY MOUTH IN THE MORNING active Not Available Not Available No t Available tadalafil 5 mg tablet TAKE 1 TABLET BY MOUTH ONCE DAILY FOR ERECTILE DYSFUNCT ION AND PROSTATE HEALTH. active Not Available Not Available No t Available Vitamin C daily active 500mg; 0; Recorded 12/19/19 22 10:28AM by Maurice Alcantar RN, Office Visit; Not Available Not Available Not Available aspirin at bedtime 07/04 completed 0; Recorded 12/19/19 22 10:28AM by Maurice Alcantar RN, Office Visit; Not Available Not Available Not Available zinc Daily active 0; Recorded 12/19/19 22 10:45AM by Maurice Alcantar RN, Office Visit; Not Available Not Available Not Available omeprazol e two times daily 06/16 completed 0; Recorded 12/19/19 22 10:28AM by Maurice Alcantar RN, Office Visit; Not Available Not Available Not Available furosemid e daily 06/16 completed 0; Recorded 12/19/19 22 10:28AM by Maurice Alcantar RN, Office Visit; Not Available Not Available Not Available carvedilo l daily 06/16 completed 1/2 tablet in evening; 0; Recorded 12/19/19 22 10:28AM by Maurice Alcantar RN, Office Visit; Not Available Not Available Not Available enalapril maleate two times daily 06/16 completed 0; Recorded 12/19/19 22 10:28AM by Maurice Alcantar RN, Office Visit; Not Available Not Available Not Available sildenafi l prior to sexual activity 06/16 completed 0; Recorded 12/19/19 22 10:28AM by Maurice Alcantar RN, Office Visit; Not Available Not Available Not Available Vitamin D3 daily active 0; Recorded 12/19/19 22 10:28AM by Maurice Alcantar RN, Office Visit; Not Available Not Available Not Available metformin at bedtime 07/04 completed 0; Recorded 12/19/19 22 10:28AM by Maurice Alcantar RN, Office Visit; Not Available Not Available Not Available Potassium Chloride ER daily 06/16 completed 0; Recorded 12/19/19 22 10:28AM by Maurice Alcantar RN, Office Visit; Not Available Not Available Not Available escitalop sanjana oxalate daily 06/16 completed 0; Recorded 12/19/19 22 10:28AM by Maurice Alcantar RN, Office Visit; Not Available Not Available Not Available ranolazin e ER 500 mg tablet,ex tended release,1 2 hr TAKE ONE TABLET BY MOUTH TWICE DAILY active Not Available Not Available No t Available ReliOn Prime Test Strips USE 1 STRIP TO CHECK GLUCOSE ONCE DAILY active Not Available Not Available No t Available Eliquis 5 mg tablet TAKE ONE TABLET BY MOUTH TWICE DAILY active Not Available Not Available No t Available Invokana 300 mg tablet TAKE 1 TABLET BY MOUTH IN THE MORNING active Not Available Not Available No t Available potassium chloride ER 20 mEq tablet,ex tended release TAKE 1 TABLET BY MOUTH ONCE DAILY 01/16 completed Not Available Not Available Not Available Entresto 49 mg-51 mg tablet TAKE ONE TABLET BY MOUTH TWICE DAILY active Not Available Not Available No t Available Entresto 24 mg-26 mg tablet TAKE 1 TABLET BY MOUTH TWICE DAILY 06/16 completed Not Available Not Available Not Available Vitamin B12 daily active 0; Recorded 12/19/19 22 10:28AM by Maurice Alcantar RN, Office Visit; Not Available Not Available Not Available Vitals Date Recorded Body height Body mass index (BMI) Body weight Oxygen saturation Oxygen saturation in Arterial blood by Pulse oximetry Body temperature Heart rate Systolic blood pressure Diastolic blood pressure Provider Name and Address Organization Details Last Updated DateTime 5 180.34 cm 35.4 kg/m2 902341. 46 g 95 % 95 % 98.6 [degF] 86 /min 118 mm[Hg] 58 mm[Hg] Saray Knott [facility] 5 15:54:36 Date Recorded Body weight Oxygen saturation Oxygen saturation in Arterial blood by Pulse oximetry Heart rate Respiratory rate Body temperature Systolic blood pressure Diastolic blood pressure Provider Name and Address Organization Details Last Updated DateTime 3 552223. 97 g 94 % 94 % 76 /min 20 /min 97.5 [degF] 112 mm[Hg] 68 mm[Hg] MAURICE ALCANTAR [facility] 3 16:38:27 Date Recorded Body height Body mass index (BMI) Body weight Oxygen saturation Oxygen saturation in Arterial blood by Pulse oximetry Heart rate Respiratory rate Systolic blood pressure Diastolic blood pressure Provider Name and Address Organization Details Last Updated DateTime 5 180.34 cm 34.2 kg/m2 857156. 13 g 96 % 96 % 88 /min 18 /min 112 mm[Hg] 60 mm[Hg] WILLYJORDAN AMIN [facility] 5 11:53:16 Date Recorded Body height Body mass index (BMI) Body weight Oxygen saturation Oxygen saturation in Arterial blood by Pulse oximetry Heart rate Respiratory rate Body temperature Systolic blood pressure Diastolic blood pressure Provider Name and Address Organization Details Last Updated DateTime 3 177.8 cm 37.2 kg/m2 967649. 42 g 98 % 98 % 78 /min 20 /min 98.7 [degF] 140 mm[Hg] 80 mm[Hg] ROSA HERNANDEZ [facility] 3 11:32:45 Date Recorded Body height Body mass index (BMI) Body weight Heart rate Oxygen saturation Oxygen saturation in Arterial blood by Pulse oximetry Respiratory rate Body temperature Systolic blood pressure Diastolic blood pressure Provider Name and Address Organization Details Last Updated DateTime 3 177.8 cm 36.6 kg/m2 259914. 05 g 72 /min 91 % 91 % 22 /min 98.4 [degF] 126 mm[Hg] 74 mm[Hg] WILLY AMIN [facility] 3 13:39:53 Social History None recorded. Functional Status Question Answer Note LastModified by Organizat ion Details LastModified Time Do you use any illicit or recreational drugs? No [email or web address] Information not available 07/04/2023 Do you or have you ever used any other forms of tobacco or nicotine? No [email or web address] Information not available 07/04/2023 What is your level of alcohol consumption? None [email or web address] Information not available 07/04/2023 Mental Status None recorded. Family History Nothing Reported. Medical History No medical history recorded. Immunizations Vaccine Type Date Status Note Provider Nam e and Address Organization Details Recorded Time pneumococcal polysaccharide PPV23 5 completed Not Available [facility] 01/16/2025 11:25:23 zoster live 6 completed Not Available [facility] 01/16/2025 11:25:23 Influenza, split virus, quadrivalent, PF 8 completed Not Available [facility] 01/16/2025 11:25:23 Tdap 1 completed Not Available [facility] 01/16/2025 11:25:23 zoster recombinant 3 completed Not Available [facility] 01/16/2025 11:25:23 Pneumococcal conjugate PCV15, polysaccharide [id number] conjugate, adjuvant, PF 3 completed Not Available [facility] 01/16/2025 11:25:23 Tdap 3 completed Not Available [facility] 01/16/2025 11:25:23 zoster recombinant 3 completed Not Available [facility] 01/16/2025 11:25:23 Influenza, high-dose, quadrivalent, PF 3 completed Not Available [facility] 01/16/2025 11:25:23 Influenza, high-dose, trivalent, PF 4 completed Not Available [facility] 01/16/2025 11:25:23 Past Encounters Encounter ID Performer Location Encounter Start Date Encounter Closed Date Diagnosis/Indication Diagnosis SNOMED-CT Code Diagnosis ICD10 Code Diagnosis Note [id number] TITO COOLEY [facility] ([facility]) [address] [place] [phone] 11/21/2022 16:00:33 11/28/2022 14:45:04 Dyspnea 413161073 R06.02 Recommend patient go to ER for CHF evaluation . [id number] RAUL LI PA-C [facility] ([facility]) [address] [place] [id number] 06/16/2023 11:22:28 06/22/2023 11:32:47 Sprain of medial collateral ligament of knee 44852007 S83.411A has brace at home ok to wearIce tid Rest. gentle ROMIf still swollen and tender in 1-2 week f/u with PCP to discuss if MRI or PT more appropriat e [id number] Armin Cortez DO [facility] ([facility]) [address] [place] [phone] 07/04/2023 12:49:11 07/04/2023 13:57:07 Cough 60342291 R05.9 Acute bronchitis 7446186 2 J20.9 Concern for developing pneumonia. We will start prednisone and doxycyclin e. Return with worsening. [id number] TITO JOHNSON [facility] ([facility]) [address] [place] [id number] 10/26/2024 15:42:35 10/28/2024 11:47:08 Removal of sutures done 1351522165 10360 Z48.02 Removed sutures without incident. Patient instructed to keep area clean and dry. May apply REX bid. Notify clinic with any signs or symptoms of infection. [id number] Armin Cortez DO [facility] ([facility]) [address] [place] [id number] 01/16/2025 11:25:06 01/17/2025 16:53:12 Screening for malignant neoplasm of colon 053872542 Z12.11 I have reviewed and discussed colon cancer screening options, including colonoscop y. Discussed risks vs benefits including risk of infection and bleeding, perforatio n, possible need for surgery, reaction to medication s, and sever injury or . We discussed pt requiring sedation and possible general anesthesia . Pt agrees to proceed with Colonoscop y at [facility]. Preliminar y procedure date will be 02/27/25 He has appt with Dr. Denis, cardiology to consider stopping eliquis on 02/17/25.we will continue plavix. hold glyburide and Invokanna after taking AM dose the day before procedure. Chronic sy stolic heart failure 096001487 I50.22 stable. continue care with cardiology Mixed hyperlipidemia 267 004928 E78.2 stable. continue simvastati n Essential hypertension 09909115 I10 stable. continue carvedilol . Gastroesop hageal reflux disease 385547183 K21.9 History of atrial fibrillation 732592644 Z86.[address] Denis, electrophy siologist at [facility] again in early february. s/p ablation in october 2024 which treated a flutter/af ib. no longer in afib. considerin g stopping eliquis. Health Concerns Section Related Observation LastModified by Organization Detai ls LastModified Time None Recorded Concern Status LastModified by Organization Details LastModified Time None Recorded Advance Directives Directive None Recorded Payers Insurance Date Sequence Insurance Name Policy Number Policy Jolly Covered Member ID Jolly Member ID Guarantor Name 01/13/2025 [place] - [facility] (MEDICARE) Dwayne Salinas [id number] Dwayne Salinas 01/13/2025 1 [place] Dwayne Salinas [id number] Dwayne Salinas 01/27/2025 2 [employer] - MEDICARE SELECT - PLAN F (MEDICARE SUPPLEMENT) Dwayne Salinas [id number] Dwayne Salinas Notes Date Note Type Note Provider Name and Address Organization Details Recorded Time 3 text/html DyspneaReported bypatient.Quality:tightn ess;pressure;can't catch breath;breathlessness Duration:for 4 days Associated Symptoms:chest pain/discomfort;fatigue; ankle swelling;lightheadedness ;weakness;decrease in exercise capacityNotes:Reports 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 Reports worsening SOB, fatiguq, dizziness, and edema since. TITO COOLEY [address] [place], [address], [facility] 11/21/2022 21:10:21 3 text/html Musculoskeletal PainReported bypatient.Location:pain radiating to the legs right; right knee Quality:sharp;tingling;d ull Severity:driving impairment;interferes with sleep;interferes with work/school Duration:present <1 month; I stepped over a bunch of boxes and lawnmower deck in shed andd hurt my right knee. Timin06-15-23 Alleviating Factors:rest Aggravating factors:movement/positio sherwin; bending over; twisting twisted knee wrong but did not fall at him yesterday.No hx of injury or surgery to this knee RAUL LI PA-C [address] [place], [address], [facility] 06/19/2023 10:44:35 3 text/html CoughReported bypatient.Quality:produc tive Severity:moderate Associated Symptoms:no fever;chills;wheezing;sh ortness of breath;throat clearing;nasal discharge;tiredness;[place] pt, PCP is Dr. Jon pt c/o flu like sx, concerned he might have bronchitis, same synptoms as last year with dx of bronchitis. runny nose, chest congestion, cough with sputum, headache, body aches, chills. started 4 days ago. getting worse.pt does not want to be tested for covid.hx of pneumonia about 1 year ago. Armin Cortez DO [address] [place], [address], [facility] 07/04/2023 13:54:14 5 text/html Walk inhad ablation on 10/23 Dr Denis, sutures to groin B/L told to remove at 48 hours. Here for suture removal. TITO JOHNSON [address] [place], [address], [facility] [place] 10/26/2024 17:19:51 text/html Colonoscopy ScreeningReported bypatient.GI Symptoms:no abdominal pain; no constipation; no change in the stool; no color change in stool Associated Symptoms:normal appetite; no fever; no nausea; no vomiting Context:prior examination;history of colon polyps Family History:no polyps; no colon cancer The patient presents today at the request of Dr. Jon for evaluation and discussion of colonoscopy for colon cancer screening. The patient denies any recent abdominal pain, persistent diarrhea, persistent constipation, bloody or dark tarry stools, or mucusy stools. Last Colon Cancer screening: JUN 2020 Problems with anesthesia in the past: NONE Family History of Colon cancers: NONE Blood Thinners: Eliquis and Plavix seeing Dr Denis, jboss architect at [facility] again in early february. s/p ablation in october 2024 which treated a flutter/afib. no longer in afib. Co-morbidities: Afib with pacemaker, CAD, DM with a1c of 7.2 in october 2024, CHF. Armin Cortez DO [address] [place], [address], [facility] [place] 01/16/2025 12:18:28
--- OUTSIDE RECORDS SUMMARY | 2025-02-06 15:52 | XMS_ITS | Encounter Summary ---
Author Organization [facility] Address [address] [place] [address] Care Team Providers Care Order Editor Name Role Phone Teodoro Jon DO Primary Care Provider [phone] Reason for Referral * Outpatient Services (Routine) - Closed Specialty Diagnoses / Procedures Referred By Contac t Referred To Contact Diagnoses PVC's (premature ventricular contractions) Procedures CL STUDY POSS ABLATION Ana Denis MD [address] [place] [phone] Phone: tel: fax: Referral ID Status Reason Start Date Expiration Date Visits Re quested Visits Authorized [id number] Closed 04/08/2013 05/09/2014 1 1 Encounter Details Date Type Department Care Team (Late st Contact Info) Description 04/08/2013 Ancillary Orders [facility] [place] [address] [place] [address] Ana Denis MD [address] [place] [phone] PVC's (premature ventricular contractions) (Primary Dx) Social History Tobacco Use Types Packs/Day Years Used Date Smoking Tobacco: Former Cigarettes 0 0 10/14/1984 - 10/14/1984 Smokeless Tobacco: Former Quit: 10/14/1984 Alcohol Use Standard Drinks/Week Comments No 0 (1 standard drink = 0.6 oz pur e alcohol) Sex and Gender Information Value Date Recorded Sex Assigned at Not on file 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 PRE-PROCEDURE DIAGNOSES: 1. Symptomatic refractory premature ventricular contractions. 2. Hypertension. 3. Gcj-uavmxih-qacdyjqjt diabetes. 4. Hyperlipidemia. 5. Myocardial infarction and history of bypass surgery. POST-PROCEDURE DIAGNOSES: 1. Symptomatic refractory premature ventricular contractions. 2. Hypertension. 3. Vds-xmmlsxk-zzthrkooz diabetes. 4. Hyperlipidemia. 5. Myocardial infarction and history of bypass surgery. 6. Status post PVC ablation, PVC at left inferior septal area LV. MATERIALS USED: 1. 5-, 6-, 5-Palauan sheath to the left femoral veins for the quadruple, octopolar, quadruple electrode catheter to electrically record HRA, His bundle, and RV. 2. LV pacing and LV pace mapping and anatomic mapping. 3. Radiofrequency ablation at LV after the mapping. 4. Comprehensive EP study with and without isoproterenol infusion. DESCRIPTION OF PROCEDURE: After informed consent obtained, the patient was sent to the EP lab in a postabsorptive state. Bilateral groins were prepped in usual fashion with sterile technique. All catheters were placed as mentioned above so we can electrically record His bundle, RV, and HRA. 7-Palauan sheath to the right femoral artery, later on changed to SRO sheath, along with 4 mm EZ Steer ablation/mapping catheter crossed the aortic valve into the LV. We started to do the activation mapping with EnSite system as well as 3-D mapping and pace mapping also applied in several areas. Patient clearly has a focus around the inferior septal area LV as we predicted from the clinical EKG. The closest pace map is 11.5 out of 12, and radiofrequency ablation was applied to those regions. After we applied, the PVC disappeared, and we did see a different morphology of PVC which is not frequent. Of note, bolus of heparin was given, and IV heparin was infused to continue, and a 5500-unit bolus of heparin and infusion rate of 2600 units/hour. Every 15-20 minutes, we checked ACT to keep ACT between 250 to 350 range. Baseline before ablation as following: QTC is 432, WI 206, HR is 105, AH is 122, HV is 60, cycle length 725 milliseconds. Atrial decremental pacing post ablation 1:1 until 400 milliseconds, and there is no VA conduction post ablation with ventricular pacing which was done. AV jennifer ERP reached at 600/340 post ablation, and then 1 mcg/min of isoproterenol was infused at steady state. We repeated EP study, baseline as following: WI is 185, QRS is 130, QT is 415, AH is 130, HV is 60, cycle length is 965 milliseconds. Post ablation on isoproterenol ventricular pacing, we are not able to see any VA conduction. Atrial pacing post ablation on isoproterenol 1:1 until 380 milliseconds. AV jennifer ERP reached at 500/340 milliseconds. From the last ablation stopped the PVC until the end, and we did not see any more PVC for at least 30 minutes until we concluded the study. Throughout the procedure, the patient's hemodynamics were stable, no complication noticed, minimal bleeding. Total fluoroscopy time 6.4 minutes. We had 5 mg Versed and 125 mcg fentanyl total. At the end of the procedure, the right femoral vein changed to the short sheath 8-Palauan. FINAL SUMMARY: 1. Mildly prolonged HV. 2. PVC originally from the LV inferior septal area which was ablated. Post ablation, no more PVC seen. No other significant arrhythmia can be identified. SCL/jaw - transcribed in Epic - Procedure Note Ana Denis MD - 05/03/2013 TYPE OF PROCEDURE: PVC ablation. PRE-PROCEDURE DIAGNOSES: 1. Symptomatic refractory premature ventricular contractions. 2. Hypertension. 3. Xlb-zsytnud-elavkhujs diabetes. 4. Hyperlipidemia. 5. Myocardial infarction and history of bypass surgery. POST-PROCEDURE DIAGNOSES: 1. Symptomatic refractory premature ventricular contractions. 2. Hypertension. 3. Qdq-wckeegj-mlnojakdm diabetes. 4. Hyperlipidemia. 5. Myocardial infarction and history of bypass surgery. 6. Status post PVC ablation, PVC at left inferior septal area LV. MATERIALS USED: 1. 5-, 6-, 5-Palauan sheath to the left femoral veins for the quadruple,octopolar, quadruple electrode catheter to electrically record HRA, Hisbundle, and RV. 2. LV pacing and LV pace mapping and anatomic mapping. 3. Radiofrequency ablation at LV after the mapping. 4. Comprehensive EP study with and without isoproterenol infusion. DESCRIPTION OF PROCEDURE: After informed consent obtained, the patientwas sent to the EP lab in a postabsorptive state. Bilateral groins wereprepped in usual fashion with sterile technique. All catheters wereplaced as mentioned above so we can electrically record His bundle, RV,and HRA. 7-Palauan sheath to the right femoral artery, later on changed toSRO sheath, along with 4 mm EZ Steer ablation/mapping catheter crossed theaortic valve into the LV. We started to do the activation mapping withEnSite system as well as 3-D mapping and pace mapping also applied inseveral areas. Patient clearly has a focus around the inferior septalarea LV as we predicted from the clinical EKG. The closest pace map is11.5 out of 12, and radiofrequency ablation was applied to those regions.After we applied, the PVC disappeared, and we did see a differentmorphology of PVC which is not frequent. Of note, bolus of heparin wasgiven, and IV heparin was infused to continue, and a 5500-unit bolus ofheparin and infusion rate of 2600 units/hour. Every 15-20 minutes, wechecked ACT to keep ACT between 250 to 350 range. Baseline beforeablation as following: QTC is 432, WI 206, HR is 105, AH is 122, HV is60, cycle length 725 milliseconds. Atrial decremental pacing postablation 1:1 until 400 milliseconds, and there is no VA conduction postablation with ventricular pacing which was done. AV jennifer ERP reached at600/340 post ablation, and then 1 mcg/min of isoproterenol was infused atsteady state. We repeated EP study, baseline as following: WI is 185,QRS is 130, QT is 415, AH is 130, HV is 60, cycle length is 965milliseconds. Post ablation on isoproterenol ventricular pacing, we arenot able to see any VA conduction. Atrial pacing post ablation onisoproterenol 1:1 until 380 milliseconds. AV jennifer ERP reached at 500/340milliseconds. From the last ablation stopped the PVC until the end, andwe did not see any more PVC for at least 30 minutes until we concluded thestudy. Throughout the procedure, the patient's hemodynamics were stable, nocomplication noticed, minimal bleeding. Total fluoroscopy time 6.4minutes. We had 5 mg Versed and 125 mcg fentanyl total. At the end ofthe procedure, the right femoral vein changed to the short sheath8-Palauan. FINAL SUMMARY: 1. Mildly prolonged HV. 2. PVC originally from the LV inferior septal area which was ablated.Post ablation, no more PVC seen. No other significant arrhythmia can beidentified. SCL/jaw - transcribed in [email or web address] - us Ana Denis MD FLUOROSCOPY ORDERABLES Final Result [facility] documented in this encounter Visit Diagnoses Diagnosis PVC's (premature ventricular contractions)- Primary Other premature beats Frequent PVCs- Primary Other premature beats PVC's (premature ventricular contractions) Other premature beats documented in this encounter Care Teams Order Editor Relationship Specialty Start Date End Date Teodoro Jon DO [address] [place] [phone] PCP - General Family Practice 03/19/20 documented as of this encounter
--- OUTSIDE RECORDS SUMMARY | 2025-02-06 15:52 | XMS_ITS | Encounter Summary ---
Author Organization [employer] [facility] Address [address] [place] [address] Care Team Providers Care Beer Merchant Name Role Phone Teodoro Jon DO Primary Care Provider [phone] Encounter Details Date Type Department Care Team (Latest Contact Info) Description 11/22/2001 Outpatient Historical HIS [facility] Audie Rosales Jr., MD [address] [place] [phone] HYPERTENSION NOS (Primary Dx); OSTEOARTHROS NOS-UNSPEC; OBESITY NOS Social History Tobacco Use Types Packs/Day Years Used Date Smoking Tobacco: Never Assessed Sex and Gender Information Value Date Recorded Sex Assigned at Not on file 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
--- OUTSIDE RECORDS SUMMARY | 2025-02-06 15:52 | XMS_ITS | Encounter Summary ---
Author Organization [employer] [facility] Address [address] [place] [address] Care Team Providers Care Multimedia Technician Name Role Phone Teodoro Jon DO Primary Care Provider [phone] Encounter Details Date Type Department Care Team (Latest Contact Info) Description 06/04/2003 Outpatient Historical HIS [facility] Audie Rosales Jr., MD [address] [place] [address] ENDOCRINE/NERV TAMMIE NOS (Primary Dx); HYPOVOLEMIA Social History Tobacco Use Types Packs/Day Years Used Date Smoking Tobacco: Never Assessed Sex and Gender Information Value Date Recorded Sex Assigned at Not on file 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
--- OUTSIDE RECORDS SUMMARY | 2025-02-06 15:52 | XMS_ITS | Encounter Summary ---
Author Organization [employer] [facility] Address [address] [place] [address] Care Team Providers Care Sales And Operations Trainee Name Role Phone Teodoro Jon DO Primary Care Provider [phone] Encounter Details Date Type Department Care Team (Latest Contact Info) Description 11/26/2002 Outpatient Historical HIS [facility] Audie Rosales Jr., MD [address] [place] [phone] Pure hypercholesterolem (Primary Dx) Social History Tobacco Use Types Packs/Day Years Used Date Smoking Tobacco: Never Assessed Sex and Gender Information Value Date Recorded Sex Assigned at Not on file 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
--- OUTSIDE RECORDS SUMMARY | 2025-02-06 15:52 | XMS_ITS | Encounter Summary ---
Author Organization [facility] Address [address] [place] [address] Care Team Providers Care Mail Handler Name Role Phone Teodoro Jon DO Primary Care Provider [phone] Reason for Visit * Reason Onset Date Comments Procedure 10/10/2024 Encounter Details Date Type Department Care Team (Late st Contact Info) Description 10/10/[address] [facility] [address] [place] [phone] Ana Denis MD [address] [place] [phone] Procedure Social History Tobacco Use Types Packs/Day Years Used Date Smoking Tobacco: Former Cigarettes Q uit: 10/14/1984 Smokeless Tobacco: Former Quit: 10/14/1984 Alcohol Use Standard Drinks/Week Comments No 0 (1 standard drink = 0.6 oz pur e alcohol) Feeling Safe Answer Date Recorded Are you in a relationship wi th someone who hurts you emotionally and/or physically? 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 Cardiology Rn Float: Leida Garnica ISION LENS CENTERER AND EDGER documented in this encounter Plan of Treatment Upcoming Encounters Date Type Department Care Team (Late st Contact Info) Description 02/17/2025 10:20 AM CDT Office Visit [facility] [address] [place] [phone] Ana Denis MD [address] [place] [phone] Yvrose Denis [place] [address] [place] [phone] 04/09/2025 11:00 AM CDT Office Visit [facility] [address] [place] [phone] Ana Denis MD [address] [place] [phone] Yvrose Denis PA [address] [place] [phone] documented as of this encounter Visit Diagnoses Not on filedocumented in this encounter Care Teams Mail Handler Relationship Specialty [place] [address] [place] [phone] PCP - General 11/28/20 documented as of this encounter
--- OUTSIDE RECORDS SUMMARY | 2025-02-06 15:52 | XMS_ITS | Encounter Summary ---
Author Organization [employer] [facility] Address [address] [place] [address] Care Team Providers Care Intensive Care Unit Registered Nurse Name Role Phone Teodoro Jon DO Primary Care Provider [phone] Encounter Details Date Type Department Care Team (Latest Contact Info) Description 01/04/2002 Outpatient Historical HIS [facility] Audie Rosales Jr., MD [address] [place] [address] HYPERTENSION NOS (Primary Dx); DIABETES UNCOMPL ADULT-TYPE II (CMS/[facility]) Social History Tobacco Use Types Packs/Day Years Used Date Smoking Tobacco: Never Assessed Sex and Gender Information Value Date Recorded Sex Assigned at Not on file 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
--- OUTSIDE RECORDS SUMMARY | 2025-02-06 15:52 | XMS_ITS | Encounter Summary ---
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
--- OUTSIDE RECORDS SUMMARY | 2025-02-06 15:52 | XMS_ITS | Encounter Summary ---
Author Organization [facility] Address [address] 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
--- OUTSIDE RECORDS SUMMARY | 2025-02-06 15:52 | XMS_ITS | Encounter Summary ---
Author Organization [employer] [facility] Address [address] [place] [address] Care Team Providers Care Chief Technical Officer Name Role Phone Teodoro Jon DO Primary Care Provider [phone] Encounter Details Date Type Department Care Team (Latest Contact Info) Description 04/03/2002 Outpatient Historical HIS [facility] Audie Rosales Jr., MD [address] [place] [address] OSTEOARTHROS NOS-UNSPEC (Primary Dx); JOINT PAIN-UNSPEC Social History Tobacco Use Types Packs/Day Years Used Date Smoking Tobacco: Never Assessed Sex and Gender Information Value Date Recorded Sex Assigned at Not on file 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
--- OUTSIDE RECORDS SUMMARY | 2025-02-06 15:52 | XMS_ITS | Clinical Summary ---
Author Organization [facility] Address [address] [place] [address] Care Team Providers Care Roller Shop Utility Worker Name Role Phone Teodoro Jon DO Primary Care Provider [phone] Allergies Active Allergy Reactions Criticality Noted Date Comments Penicillins Hives High 01/14/2013 Propoxyphene N-Acetaminophen Shortness o f Breath/Wheezing High 01/14/2013 Medications clopidogrel (PLAVIX) 75 mg Oral TabIndications: Chest pain,CAD (coronary artery disease),Dyspne a Take 75 mg by mouth daily. Active aspirin (ASAD) 81 mg Oral TabIndications: Chest pain,CAD (coronary artery disease),Dyspne a Take 325 mg by mouth daily . Active ascorbic acid (VITAMIN C) 500 mg tablet Take 500 mg by mouth daily. Active metFORMIN (GLUCOPHAGE) 500 mg tablet Take 500 mg by mouth 2 times daily with meals. Active spironolactone (ALDACTONE) 25 mg tablet Take 12.5 mg by mouth daily . Active cyanocobalamin (VITAMIN B-12) 500 mcg tablet Take 500 mcg by mouth daily. Active enalapril (VASOTEC) 5 mg tablet Take 5 mg by mouth 2 times daily. Active carvedilol (COREG) 25 mg tablet Take 25 mg in the AM and 12.5 in the PM. 60 Tablet 3 6 Active simvastatin (ZOCOR) 20 mg tablet Take 1 Tablet (20 mg) by mouth late in the day. 30 Tablet 2 6 Active omeprazole (PriLOSEC) 20 mg Capsule, Delayed Release(E.C.) Take 20 mg by mouth 2 times daily. Active furosemide (LASIX) 20 mg tablet Take 20 mg by mouth daily. Active potassium CHLORIDE (KLOR-CON) 20 mEq Packet Take 20 mEq by mouth daily. Active cholecalciferol , Vitamin D3, 2,000 unit Tablet Take 1,000 Units by mouth daily. Active sildenafil (VIAGRA) 25 mg tablet Take 20 mg by mouth 1 time daily as needed for Erectile Dysfunction. Active nitroglycerin (NITROSTAT) 0.4 mg Tablet, Sublingual Place 0.4 mg under tongue every 5 minutes as needed for Chest Pain. Active traMADoL (ULTRAM) 50 mg tabletIndicatio ns:S/P trigger finger release,Trigger middle finger of left hand Take 1 Tablet (50 mg) by mouth every 6 hours as needed (POST OPERATIVE PAIN). 10 Tablet 1 Active amLODIPine (NORVASC) 10 mg tablet Take 5 mg by mouth daily. Active escitalopram oxalate (LEXAPRO) 10 mg tablet Take 10 mg by mouth daily. Active acetaminophen (TYLENOL) 500 mg Capsule Take by mouth every 4 hours as needed. 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 Immunizations Immunization Administration Dates Next Due (PNEUMOVAX 23)(50 YRS UP) PN EUMOCOCCAL POLYSACCHARIDE (PPV23) 0.5 ML, IM 10/30/2002 Influenza Seasonal Unspecified Formulation IM Family History Medical History Relation Name Comments Heart Disease Brother Healthy Father Cancer Mother Heart Disease Mother Relation Name Status Comments Brother Father Alive Mother Social History Tobacco Use Types Packs/Day Years Used Date Smoking Tobacco: Former Cigarettes 1.5 12 0 10/14/1972 - 10/14/1984 Smokeless Tobacco: Former Quit: 10/14/1984 Alcohol Use Standard Drinks/Week Comments No 0 (1 standard drink = 0.6 oz pur e alcohol) Sex and Gender Information Value Date Recorded Sex Assigned at Not on file Legal Sex Male 5:09 AM THERAPIST Gender Identity Not on file Sexual Orientation Not on file Occupation Industry Job Start Date Job End Date Not on file Not on file Not on file Not on file Not on file Not on file Not on file Not on file Last Filed Vital Signs Vital Sign Reading Time Taken Comments Blood Pressure 124/72 12/03/2020 1:06 PM CDT Pulse 77 12/03/2020 1:06 PM CDT Temperature 36.2 C (97.2 F) 09/03/2020 8:35 AM THERAPIST Respiratory Rate 16 09/03/2020 8:59 AM THERAPIST Oxygen Saturation 93% 09/03/2020 8:59 AM THERAPIST Inhaled Oxygen Concentration - - Weight 118.4 kg (261 lb) 12/03/2020 1:06 PM CDT Height 180.3 cm (5' 11 ) 12/03/2020 1:06 PM CDT Body Mass Index 36.4 12/03/2020 1:06 PM CDT Plan of Treatment Health Maintenance Due Date Last Done Comments DTAP/TDAP/TD VACCINES (1 - Tdap) 1974 COLORECTAL SCREENING 2000 Colorectal Cancer Screening 2000 FIT-DNA Q 3 years 2000 FIT/FOBT Q 1 year 2000 Flex Sig/CT Colonography Q 5 years 2000 PNEUMOCOCCAL VACCINE 50+ YEARS (2 of 2 - PCV) 09/14/19 06 10/30/2002 ZOSTER VACCINE (1 of 2) 2005 RSV VACCINE (60+ or ) (1 - Risk 60-74 years 1-dose series) 2015 INFLUENZA VACCINE (#1) 2024 06/14/2012 Insurance MEDICARE PART A AND B AAR SUPP RX [facility] Medicare Part D Advance Directives For more information, please contact: [phone] * Full Code (Latest Code Status on File) Date Activated Date Inactivated Comments 09/03/2020 6:48 AM 09/03/2020 11:17 AM * Full Code Date Activated Date Inactivated Comments 04/23/2020 8:31 AM 04/23/2020 1:42 PM * Full Code Date Activated Date Inactivated Comments 04/23/2020 8:01 AM 04/23/2020 8:31 AM * Full Code Date Activated Date Inactivated Comments 03/19/2020 7:53 AM 03/19/2020 12:32 PM * Full Code Date Activated Date Inactivated Comments 05/01/2013 4:41 PM 05/02/2013 12:04 PM Care Teams Roller Shop Utility Worker Relationship Specialty Start Date End Date Teodoro Jon DO [facility] [place] [phone] PCP - General Family Practice 03/19/20
--- OUTSIDE RECORDS SUMMARY | 2025-02-06 15:52 | XMS_ITS | Encounter Summary ---
Author Organization [employer] [facility] Address [address] [place] [address] Care Team Providers Care Hob Machine Operator Name Role Phone Teodoro Jon DO Primary Care Provider [phone] Encounter Details Date Type Department Care Team (Latest Contact Info) Description 04/30/2003 Outpatient Historical HIS [facility] Audie Rosales Jr., MD [address] [place] [address] HYPERTENSION NOS (Primary Dx); Pure hypercholesterolem; CRAMP IN LIMB Social History Tobacco Use Types Packs/Day Years Used Date Smoking Tobacco: Never Assessed Sex and Gender Information Value Date Recorded Sex Assigned at Not on file 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
--- OUTSIDE RECORDS SUMMARY | 2025-02-06 15:52 | XMS_ITS | Encounter Summary ---
Author Organization [facility] Address [address] [place] [address] Care Team Providers Care Caustic Liquor Maker Name Role Phone Teodoro Jon DO Primary Care Provider [phone] Encounter Details Date Type Department Care Team (Late st Contact Info) Description 01/30/2025 Orders Only [facility] [address] [place] [phone] Yvrose Denis PA [address] [place] [phone] Atrial flutter, unspecified type (CMS/HCC) (Primary Dx); Paroxysmal atrial fibrillation (CMS/HCC); Atrial fibrillation, unspecified type (CMS/HCC); VT (ventricular tachycardia) (CMS/HCC) Social History Tobacco Use Types Packs/Day Years [...] on file 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 Gender Identity Not on file Sexual Orientation Not on file documented as of this encounter Plan of Treatment Upcoming Encounters Date Type Department Care Team (Late st Contact Info) Description 02/17/2025 10:20 AM CDT Office Visit [facility] [address] [place] [phone] Ana Denis MD [address] [place] [phone] Yvrose Denis PA [address] [place] [phone] 04/09/2025 11:00 AM CDT Office Visit [facility] [address] [place] [phone] Ana Denis MD [address] [place] [phone] Yvrose Denis PA [address] [place] [phone] Scheduled Orders Name Type Priority Associated Diagnoses Orde r Schedule EKG 12-LEAD ECG Routine Atrial flutter, unspecified type (CMS/HCC) Paroxysmal atrial fibrillation (CMS/HCC) Atrial fibrillation, unspecified type (CMS/HCC) VT (ventricular tachycardia) (CMS/HCC) Ordered: 01/30/2025 documented as of this encounter Visit Diagnoses Diagnosis Atrial flutter, unspecified type (CMS/HCC)- Primary Paroxysmal atrial fibrillation (CMS/HCC) Atrial fibrillation Atrial fibrillation, unspecified type (CMS/HCC) VT (ventricular tachycardia) (CMS/HCC) Paroxysmal ventricular tachycardia documented in this encounter Care Teams Caustic Liquor Maker Relationship Specialty Start Date End Date Teodoro Jon DO [address] [place] [phone] PCP - General 11/28/20 documented as of this encounter
--- OUTSIDE RECORDS SUMMARY | 2025-02-06 15:52 | XMS_ITS | Encounter Summary ---
Author Organization [facility] Address [address] [place] [address] Care Team Providers Care Pond Worker Name Role Phone Teodoro Jon DO Primary Care Provider [phone] Reason for Referral * Outpatient Services (Routine) - Closed Specialty Diagnoses / Procedures Referred By Contac t Referred To Contact Diagnoses Abnormal echocardiogram Congestive heart failure, unspecified (CMS/HCC) CAD (coronary artery disease) Procedures MRI CARDIAC INTERPRETATION Scottie Valiente MD [address] [place] [phone] Phone: tel: fax: Referral ID Status Reason Start Date Expiration Date Visits Re quested Visits Authorized [id number] Closed 09/24/2013 10/25/2014 1 1 Y/CADDIE SUPERVISOR Encounter Details Date Type Department Care Team (Latest Contact Info) Description 09/24/2013 Ancillary Orders [facility] [place] [address] [place] [address] Scottie Valiente MD [address] [place] [phone] Abnormal echocardiogram (Primary Dx); Congestive heart failure, unspecified (CMS/HCC); CAD (coronary artery disease) Social History Tobacco Use Types Packs/Day Years Used Date Smoking Tobacco: Former Cigarettes 0 0 10/14/1984 - 10/14/1984 Smokeless Tobacco: Former Quit: 10/14/1984 Alcohol Use Standard Drinks/Week Comments No 0 (1 standard drink = 0.6 oz pur e alcohol) Sex and Gender Information Value Date Recorded Sex Assigned at Not on file Legal Sex Male 5:09 AM CADDY/CADDIE SUPERVISOR Gender Identity Not on file Sexual Orientation Not on file Occupation Industry Job Start Date Job End Date Not on file Not on file Not on file Not on file Not on file Not on file Not on file Not on file documented as of this encounter Plan of Treatment Not on file documented as of this encounter Results * MRI CARDIAC INTERPRETATION (09/24/2013 1:22 PM CADDY/CADDIE SUPERVISOR) 09/24/2013 12:1 8 PM CADDY/CADDIE SUPERVISOR Narrative INTERFACE SYSTEM - 09/24/2013 3:08 PM CADDY/CADDIE SUPERVISOR IMPRESSION - see report below. Exam: MRI CARDIAC INTERPRETATION Date/Time of Exam: Sep 24, 2013 01:22:34 PM Reason For Exam: Nonspecific (abnormal) findings on radiological and other examination of other intrathoracic organs. Examination was performed for evaluation by cardiology. Initial concrete stone fabricator images nonspecific. GRISEL/evette 1337 PM - uploaded from [employer] - Procedure Note aDvid Russo MD - 09/24/2013 IMPRESSION - see report below. Exam: MRI CARDIAC INTERPRETATION Date/Time of Exam: Sep 24, 2013 01:22:34 PM Reason For Exam: Nonspecific (abnormal) findings on radiological and other examination of other intrathoracic organs. Examination was performed for evaluation by cardiology. Initial concrete stone fabricator images nonspecific. GRISEL/evette 1337 PM - uploaded from [employer] - us Scottie Cecily Valiente MD MR ORDERABLES Final Result INTERFACE SYSTEM Refer to clinic/hospital department documented in this encounter Visit Diagnoses Diagnosis Abnormal echocardiogram- Primary Nonspecific (abnormal) findings on radiological and other examination of other intrathoracic organs Congestive heart failure, unspecified (CMS/HCC) Congestive heart failure, unspecified CAD (coronary artery disease) Coronary atherosclerosis of unspecified type of vessel, catawba or graft Abnormal echocardiogram Nonspecific (abnormal) findings on radiological and other examination of other intrathoracic organs Congestive heart failure, unspecified (CMS/HCC) Congestive heart failure, unspecified CAD (coronary artery disease) Coronary atherosclerosis of unspecified type of vessel, catawba or graft documented in this encounter Care Teams Pond Worker Relationship Specialty Start Date End Date Teodoro Jon DO [address] [place] [phone] PCP - General Family Practice 03/19/20 documented as of this encounter
--- OUTSIDE RECORDS SUMMARY | 2025-02-06 15:52 | XMS_ITS | Encounter Summary ---
Author Organization [employer] [facility] Address [address] [place] [address] Care Team Providers Care Specialty Finishing Utility Person Name Role Phone Teodoro Jon DO Primary Care Provider [phone] Encounter Details Date Type Department Care Team (Latest Contact Info) Description 05/03/2002 Outpatient Historical HIS [facility] Audie Rosales Jr., MD [address] [place] [phone] HYPERTENSION NOS (Primary Dx); OSTEOARTHROS NOS-UNSPEC Social History Tobacco Use Types Packs/Day Years Used Date Smoking Tobacco: Never Assessed Sex and Gender Information Value Date Recorded Sex Assigned at Not on file Legal Sex Male 5:09 AM COMMUNITY SERVICES 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
--- OUTSIDE RECORDS SUMMARY | 2025-02-06 15:53 | XMS_ITS | Encounter Summary ---
Author Organization [facility] Address [address] 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
--- OUTSIDE RECORDS SUMMARY | 2025-02-06 15:53 | XMS_ITS | Encounter Summary ---
Author Organization [facility] Address [address] 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
[2025-02-06 16:07] LABS: Basophils # 0.1 10^3/uL (0.0-0.1); Basophils % 1.2 %; Eosinophils # 0.4 10^3/uL (0.0-0.8); Eosinophils % 6.3 %; Hematocrit 33.9 % (37-53); Lymphocytes # 0.8 10^3/uL (0.8-4.8); Lymphocytes % 13.7 %; Mean Corpuscular Hemoglobin 19.6 pg (27-33); Mean Corpuscular Volume 69.9 fl (82-101); Monocytes # 0.9 10^3/uL (0.2-0.9); Monocytes % 15.1 %; Neutrophils # 3.84 10^3/uL (1.8-7.7); Neutrophils % 63.5 %; Nucleated Red Blood Cells % 0 %; Platelet Count 250 10^3/cmm (157-399); Red Blood Count 4.85 10^6/uL (3.85-5.65); Red Cell Distribution Width 20.3 % (12.1-15.1); White Blood Count 6.04 10^3/uL (3.29-11.43)
[2025-02-06 16:21] LABS: INR 1.18 (0.8-1.2)
[2025-02-06 16:26] LABS: Lactic Sepsis W/Reflex 1.3 mmol/L (0.5-2.2)
[2025-02-06 16:27] LABS: Troponin(5th) Baseline 16 ng/L (0-15)
[2025-02-06 16:37] LABS: Alanine Aminotransferase 13 U/L (0-41); Albumin Level 4.2 g/dL (3.5-5.2); Alkaline Phosphatase 138 U/L (40-130); Anion Gap 18.8 (5-19); Aspartate Amino Transferase 13 U/L (0-40); Blood Urea Nitrogen 25 mg/dL (8-23); Calcium 8.7 mg/dL (8.5-10.5); Carbon Dioxide 23 mmol/L (22-29); Chloride 97 mmol/L (98-107); Globulin 2.7 g/dL (1.3-4.6); Glomerular Filtration Rate 50.2 mL/min (90-130); Glucose 222 mg/dL (65-115); Magnesium 2.7 mg/dL (1.7-2.3); NT Pro B Type Natriuretic Pept 1520 pg/mL (0-125); Osmolality Calculated 289 mOsm/kg (285-295); Potassium 4.8 mmol/L (3.5-5.1); Sodium 134 mmol/L (136-145); Thyroid Stimulating Hormone 2.43 uIU/mL (0.27-4.20); Total Bilirubin 0.4 mg/dL (0.15-1.2); Total Protein 6.9 g/dL (6.6-8.7)
[2025-02-06] MEDS: midazolam 1 mg/mL INJ 2 mL 2 MG IVP (16:37)
[2025-02-06] MEDS: fentaNYL 50 mcg/mL INJ 2mL IVP (16:38)
--- NOTE | 2025-02-06 16:44 | USCV_ITS ---
Dwayne Salinas Age: 69 Gender: M : 1955 Exam Date: 02/06/2025 21:23 Ordering Phys: Carol Ann Alfredo MD Technologist: STEVEN Exam Location: [facility] [place] Indication: chest pain, Atrial fibrillation, s/p CABG 2006, s/p multiple ablations, last November 2024. BP: 158 / 83 HR: 76 Rhythm: Atrial fibrillation Technical Quality: Adequate MEASUREMENTS (Male / Female) Normal Values 2D ECHO LV Diastolic Diameter PLAX 5.1 cm 4.2 - 5.9 / 3.9 - 5.3 cm IVS Diastolic Thickness 1.7 cm 0.6 - 1.0 / 0.6 - 0.9 cm IVS Systolic Thickness 2.3 cm LVPW Diastolic Thickness 1.4 cm 0.6 - 1.0 / 0.6 - 0.9 cm LVPW Systolic Thickness 1.3 cm LVOT Diameter 2.1 cm LV Ejection Fraction 2D Teich 58.2 % LV Ejection Fraction MOD 4C 42.4 % LV Ejection Fraction MOD 2C 52.0 % LV Ejection Fraction 2C AL 51.4 % LA Diameter 4.0 cm LA Sys Volume AL 111.6 cm cubed LA Sys Volume Index AL 46.5 cm cubed/m squared Aorta at Sinotubular Diameter 2.6 cm IVC Diameter 2.1 cm M-MODE LA Ao Ratio MM 1.7 AV Cusp Separation MM 1.9 cm DOPPLER AV Peak Velocity 98.0 cm/s LVOT Peak Velocity 79.0 cm/s AV Area Cont Eq vti 3.3 cm squared AV Area Cont Eq pk 2.7 cm squared MV Peak Velocity 131.0 cm/s MV Area PHT 5.7 cm squared Mitral E to A Ratio 224.0 TR Peak Velocity 242.0 cm/s TR Peak Gradient 23.4 mmHg PV Peak Velocity 93.0 cm/s FINDINGS Left Ventricle Left ventricle is normal in size. LV systolic function is mildly reduced with EF of 40-45%. Mild global hypokinesis. Right Ventricle Grossly normal Right Atrium Grossly normal. Pacemaker lead is seen Left Atrium Dilated Mitral Valve Structurally normal mitral valve. Mild mitral regurgitation Aortic Valve Aortic valve is thickened. No significant stenosis. Tricuspid Valve Insufficient TR jet to calculate RVSP Pulmonic Valve Trace pulmonic regurgitation. Pericardium Grossly normal Aorta Normal in size IVC Appears to be dilated CONCLUSIONS LV systolic function mildly reduced with EF of 40-45%. Left atrial dilation. Mild mitral regurgitation. Trace pulmonic regurgitation IVC is dilated Patrick Moody MD (Electronically Signed) Final Date: 07 February 2025 14:36 S
--- NOTE | 2025-02-06 16:52 | PM.CONSULT ---
Providers/Reason For Consult Consulting Physician/Specialty*: Patrick Moody MD/ Cardiology Reason for Consult*: Tachycardia Requesting Physician: Dr Alfredo Attending Physician: Dr Batista Primary Care Provider: Teodoro Jon DO History of Present Illness History of Present Illness Dwayne Salinas is a 69 year old male with past medical history of atrial fibrillation/flutter with recent ablation done in [place], CABG history with last PCI in 2022, ischemic cardiomyopathy with a EF of 35%, ICD in place who came to the hospital with chest pain for 2 hours along with palpitations and heart rate of 150. Usually patient's chest pain is short in duration and subsides quickly. As it was not improving he checked vitals and was found to have tachycardia. EKG demonstrates atrial flutter with bundle branch block. Review of Systems General: Reports: 10 or more systems reviewed and unremarkable except in HPI and below Medications/Allergies Home Medications ?Medication ?Instructions ?Recorded ?Confirmed ?Last Taken ?Type acetaminophen 500 mg tablet 1,000 mg PO TID PRN Pain 09/17/19 02/06/25 05/28/24 History (Tylenol Extra Strength) cholecalciferol (vitamin D3) 50 2,000 unit PO QAM 09/17/19 02/06/25 02/06/25 History mcg (2,000 unit) tablet [id number]-hq-[id number] 300 mcg-K 60 1 tab PO QAM 09/19/19 02/06/25 02/06/25 History mcg-lycop 600 mcg-lutein 300 mcg tablet (Centrum Silver Men) ascorbic acid (vitamin C) 1,000 mg 1,000 mg PO QAM 04/19/22 02/06/25 02/06/25 History tablet (Vitamin C) cyanocobalamin (vitamin B-12) 1,000 mcg PO QAM 04/19/22 02/06/25 02/06/25 History 1,000 mcg tablet (Vitamin B-12) nitroglycerin 0.4 mg sublingual 0.4 mg sublingual Q5M PRN Chest 08/23/23 02/06/25 Unknown Rx tablet (Nitrostat) Pain #25 tabs blood sugar diagnostic (ReliOn #100 ea 02/05/24 02/06/25 Unknown Rx Prime Test Strips) glyburide 5 mg tablet 5 mg PO QAM #90 tabs 04/01/24 02/06/25 02/06/25 Rx apixaban 5 mg tablet (Eliquis) 5 mg PO BID 05/29/24 02/06/25 02/06/25 History carvedilol 25 mg tablet See Rx Instructions .Route 06/06/24 02/06/25 02/06/25 Rx .COMPLEX #135 tabs tadalafil 5 mg tablet 5 mg PO DAILY Ed, prostate heatlh 06/07/24 02/06/25 02/05/25 Rx #30 tabs zinc sulfate 50 mg zinc (220 mg) 50 mg PO QAM 06/15/24 02/06/25 02/06/25 History tablet canagliflozin 300 mg tablet 300 mg PO QAM #90 tabs 08/14/24 02/06/25 02/06/25 Rx (Invokana) omeprazole 20 mg capsule,delayed 20 mg PO BID #180 caps 09/25/24 02/06/25 02/06/25 Rx release simvastatin 20 mg tablet 20 mg PO BEDTIME #90 tabs 09/25/24 02/06/25 02/05/25 Rx clopidogrel 75 mg tablet 75 mg PO QAM #90 tabs 12/12/24 02/06/25 02/06/25 Rx escitalopram oxalate 10 mg tablet 10 mg PO QAM #90 tabs 12/12/24 02/06/25 02/06/25 Rx tramadol 50 mg tablet 100 mg (2 x 50 mg) PO TID PRN Pain 12/12/24 02/06/25 02/06/25 Rx #180 tabs amiodarone 200 mg tablet 200 mg PO QAM heart 02/06/25 02/06/25 02/06/25 History furosemide 40 mg tablet (Lasix) 40 mg PO QAM 02/06/25 02/06/25 02/06/25 History ranolazine 500 mg tablet,extended 500 mg PO BID 02/06/25 02/06/25 02/06/25 History release,12 hr sacubitril 49 mg-valsartan 51 mg 1 tab PO BID 02/06/25 02/06/25 02/06/25 History tablet (Entresto) spironolactone 25 mg tablet 12.5 mg PO QAM 02/06/25 02/06/25 02/06/25 History Allergies Allergy/AdvReac Type Severity Reaction Status Date / Time penicillin G Allergy HIVES Verified 12/12/24 14:35 Penicillins Allergy ALGY-Hives Verified 12/12/24 14:35 propoxyphene (From Allergy VERY SHORT Verified 12/12/24 14:35 Darvocet-N) OF BREATH Current Medications Generic Name Dose Route Start Last Admin Trade Name Freq PRN Reason Stop Dose Admin Diltiazem HCl 100 mg/ Sodium 100 mls @ 0 mls/hr 02/06/25 15:30 02/06/25 16:42 Chloride IV 0 mg/hr .Q0M NELIDA 0 mls/hr Protocol Titration Per Protocol Amiodarone HCl/Dextrose 360 mg in 200 mls @ 0 mls/hr 02/06/25 16:45 02/06/25 16:51 Nexterone IV 1 mg/min .Q0M NELIDA 33.33 mls/hr Protocol Administration Per Protocol PFSH Acute PFSH: Medical History (Updated 02/07/25 @ 07:58 by Patrick Moody M.D) Anticoagulation adequate with anticoagulant therapy Atrial fibrillation with controlled ventricular rate Systolic congestive heart failure Type 2 diabetes mellitus, without long-term current use of insulin Adult-onset obesity GERD (gastroesophageal reflux disease) Anxiety PAD (peripheral artery disease) Ischemic cardiomyopathy Hypertension Hyperlipidemia CAD (coronary artery disease) Surgical History (Updated 02/06/25 @ 17:42 by Nikolai Batista MD) History of surgery on extremity 12/28/2014: Right groin and femoral artery exploration and primary repair of right femoral artery catheterization site History of carpal tunnel release History of femoropopliteal bypass Left common femoral artery bypass surgery performed by Dr. Carrillo on 12/15/2014 History of umbilical hernia repair History of cholecystectomy History of cardiac radiofrequency ablation Last in November 2024 S/P CABG x 3 GOMEZ to LAD, SVG to OM1, SVG to PDA Coronary angioplasty status 04/25/15: balloon angioplasty to PDA and PLB, GOMEZ to LAD patent, SVG to OM 1 patent, SVG to PDA patent. Prox RCA 60% stenosis. Family History Brother CAD (coronary artery disease) Diabetes Hyperlipidemia Hypertension Mother CAD (coronary artery disease) Cancer Diabetes Hyperlipidemia Hypertension Grandfather Cancer Father Diabetes Hyperlipidemia Hypertension Denies family history of Clotting disorder Dementia Psychiatric illness Chronic kidney disease (CKD) Suicide Anesthesia complication Bleeding disorder Family history of premature coronary artery disease Lung disease Stroke Social History Smoking and tobacco/nicotine status: former use of tobacco/nicotine Alcohol intake: never Substance/Drug Use: never Vitals/I&O/Wt Last Vital Signs Temp 98.2 F 02/06/25 15:23 Pulse 80 02/06/25 16:47 Resp 20 H 02/06/25 16:47 BP 122/77 02/06/25 16:13 Pulse Ox 95 02/06/25 16:47 O2 Del Method Nasal Cannula 02/06/25 16:47 O2 Flow Rate 3 02/06/25 16:47 02/06/25 02/06/25 02/06/25 06:59 14:59 22:59 Intake Total 107.375 / 107.375 Balance 107.375 / 107.375 Weight last 48 hrs Weight 246 lb Physical Exam Narrative: GENERAL: Patient is alert, awake and oriented x3. [] NECK: No jugular vein distension. [] HEENT: No cyanosis. No icterus. No pallor. [] HEART: Tachycardic LUNGS: Clear to auscultate bilaterally. [] CENTRAL NERVOUS SYSTEM: Grossly nonfocal. [] EXTREMITIES: Lower extremities with 1+ edema bilaterally. Data 02/07/25 03:45 02/07/25 03:45 A&P Assessment and plan (1) Chest pain: (2) Atrial fibrillation with rapid ventricular response: (3) Atrial fibrillation status post cardioversion: (4) Systolic congestive heart failure: (5) S/P CABG x 3: (6) History of cardiac radiofrequency ablation: (7) Anticoagulation adequate with anticoagulant therapy: (8) Type 2 diabetes mellitus, without long-term current use of insulin: (9) Acute kidney injury: Plan Will proceed with cardioversion as patient is having chest pain and has atrial flutter with a heart rate of over 150 bpm. Already has received amiodarone boluses. Post cardioversion will keep on 24 hours of IV amiodarone before switching to oral amio. After cardioversion will also need interrogation of the device. Trend troponin. Continue anticoagulation. Obtain echocardiogram. Thank you for involving us with care of this patient. Please call with questions PDMP PDMP Reviewed: Not Reviewed Consult Attestations Medical Necessity Statement: Care not expected to cross 2 midnights. Coding Level of Care Code Acute Code for Chg Fwd Diagnoses Chest pain R07.9 Atrial fibrillation with rapid ventricular response I48.91 Atrial fibrillation status post cardioversion I48.91 Systolic congestive heart failure I50.20 S/P CABG x 3 Z95.1 History of cardiac radiofrequency ablation Z98.890 Anticoagulation adequate with anticoagulant therapy Z79.01 Type 2 diabetes mellitus, without long-term current use of insulin E11.9 Acute kidney injury N17.9
--- NOTE | 2025-02-06 16:52 | PM.PROC ---
Procedure Note: Date of procedure: 02/06/25 Pre-procedure diagnosis: Atrial flutter with RVR Post-procedure diagnosis: other (S/p DCCV cardioversion. Has paced rhythm) Procedure: After sedation was administered, we proceeded with DCCV synchornized cardioversion with 1 shock at 120J. Patient converted and had paced rhythm. Continue Amiodarone IV for today Trend troponin. Echocardiogram Performing Provider: Patrick Moody Complications: None Condition: stable Coding Level of Care Code Acute Code for Chaparro Myers
--- NOTE | 2025-02-06 17:03 | PM.HP ---
Providers/Chief Complaint Primary Care Provider: Teodoro Jon DO Chief Complaint: v tach History of Present Illness Dwayne Salinas is a 69 year old male with past medical history of ischemic cardiomyopathy with a last known EF of 35% in 2023, last PCI back in 2022 with last stress test back in 2023 showing a fixed defect, post CABG, post ICD placement, post ablation back in November 2024 for a flutter presents to the ER today because of ongoing chest pain. Patient states usually he will chest pain on and off which would subside by itself in few seconds. Last episode of chest pain which persisted for minutes was on Monday. Today the chest pain did not subside by itself when they checked her vitals at home have elevated heart rate of more than 150 when EMS was called. Patient continued to have rapid heart rate with chest pain en route to the ER where he was given 150 mg of IV amiodarone bolus. In the ER first he was started on Cardizem drip which did not help later he was given 1 more push of IV amiodarone. Cardiology was consulted in the ER and patient underwent cardioversion. Patient himself denies any nausea, vomiting, headache, changes in medications recently, weight gain, cough, orthopnea, PND. Examination currently patient is in normal sinus rhythm with heart rate of 70 bpm saturating 96 to 98% on 2 L. Review of Systems General: Reports: 10 or more systems reviewed and unremarkable except in HPI and below Const: Denies: fever(s), chills, body aches, change in appetite, change in weight, malaise, night sweats, diaphoresis, change in sleep pattern, daytime sleepiness or snoring Eyes: Denies: change in vision, blurry vision, photophobia, eye discomfort or eye discharge ENMT: Denies: throat pain, enlarged tonsils, hoarseness, mouth pain, oral sores, dry mouth, tinnitus, nasal congestion or post nasal drip Card: Denies: chest pain, palpitations, irregular heart rhythm, edema, swelling of feet/ankles, lightheadedness, syncope, pre-syncope, dyspnea on exertion, orthopnea, leg pain with exertion or acrocyanosis Resp: Denies: dyspnea, productive cough, non-productive cough, wheezing, stridor, pain on inspiration, change in phlegm color, hemoptysis or chest congestion GI: Denies: abdominal pain, nausea, vomiting, hematemesis, coffee ground emesis, dysphagia, heartburn, diarrhea, constipation, bloating, GI cramping, change in bowel habits, pain on defecation, hematochezia or melena : Denies: flank pain, difficulty urinating, dysuria, urinary frequency, urinary urgency, urinary hesitancy, urinary dribbling, difficulty starting urination, change in urine stream, nocturia or hematuria Musc: Denies: neck pain, back pain, extremity pain, joint pain, joint swelling, joint redness, joint stiffness or limited range of motion Neuro: Denies: headache(s), numbness in extremities, weakness in extremities, sensory changes, lack of coordination, difficulty walking, frequent falls, dizziness, vertigo, confusion, Slurred speech present, difficulty communicating thoughts or seizure-like activity Psych: Denies: anxiety, depression, mood swings, panic attacks, hopelessness or irritability Endo: Denies: polyuria, polydipsia, tired all the time, cold intolerance, excessive sweating, flushing or heat intolerance Marcus/Lymph: Denies: easy bruising or easy bleeding All/Imm: Denies: tongue swelling, facial swelling or acute wheezing Medications/Allergies Home Medications ?Medication ?Instructions ?Recorded ?Confirmed ?Last Taken ?Type acetaminophen 500 mg tablet 1,000 mg PO TID PRN Pain 09/17/19 02/06/25 05/28/24 History (Tylenol Extra Strength) cholecalciferol (vitamin D3) 50 2,000 unit PO QAM 09/17/19 02/06/25 02/06/25 History mcg (2,000 unit) tablet swuvcyjz-ac-niogj 300 mcg-K 60 1 tab PO QAM 09/19/19 02/06/25 02/06/25 History mcg-lycop 600 mcg-lutein 300 mcg tablet (Centrum Silver Men) ascorbic acid (vitamin C) 1,000 mg 1,000 mg PO QAM 04/19/22 02/06/25 02/06/25 History tablet (Vitamin C) cyanocobalamin (vitamin B-12) 1,000 mcg PO QAM 04/19/22 02/06/25 02/06/25 History 1,000 mcg tablet (Vitamin B-12) nitroglycerin 0.4 mg sublingual 0.4 mg sublingual Q5M PRN Chest 08/23/23 02/06/25 Unknown Rx tablet (Nitrostat) Pain #25 tabs blood sugar diagnostic (ReliOn #100 ea 02/05/24 02/06/25 Unknown Rx Prime Test Strips) glyburide 5 mg tablet 5 mg PO QAM #90 tabs 04/01/24 02/06/25 02/06/25 Rx apixaban 5 mg tablet (Eliquis) 5 mg PO BID 05/29/24 02/06/25 02/06/25 History carvedilol 25 mg tablet See Rx Instructions .Route 06/06/24 02/06/25 02/06/25 Rx .COMPLEX #135 tabs tadalafil 5 mg tablet 5 mg PO DAILY Ed, prostate heatlh 06/07/24 02/06/25 02/05/25 Rx #30 tabs zinc sulfate 50 mg zinc (220 mg) 50 mg PO QAM 06/15/24 02/06/25 02/06/25 History tablet canagliflozin 300 mg tablet 300 mg PO QAM #90 tabs 08/14/24 02/06/25 02/06/25 Rx (Invokana) omeprazole 20 mg capsule,delayed 20 mg PO BID #180 caps 09/25/24 02/06/25 02/06/25 Rx release simvastatin 20 mg tablet 20 mg PO BEDTIME #90 tabs 09/25/24 02/06/25 02/05/25 Rx clopidogrel 75 mg tablet 75 mg PO QAM #90 tabs 12/12/24 02/06/25 02/06/25 Rx escitalopram oxalate 10 mg tablet 10 mg PO QAM #90 tabs 12/12/24 02/06/25 02/06/25 Rx tramadol 50 mg tablet 100 mg (2 x 50 mg) PO TID PRN Pain 12/12/24 02/06/25 02/06/25 Rx #180 tabs amiodarone 200 mg tablet 200 mg PO QAM heart 02/06/25 02/06/25 02/06/25 History furosemide 40 mg tablet (Lasix) 40 mg PO QAM 02/06/25 02/06/25 02/06/25 History ranolazine 500 mg tablet,extended 500 mg PO BID 02/06/25 02/06/25 02/06/25 History release,12 hr sacubitril 49 mg-valsartan 51 mg 1 tab PO BID 02/06/25 02/06/25 02/06/25 History tablet (Entresto) spironolactone 25 mg tablet 12.5 mg PO QAM 02/06/25 02/06/25 02/06/25 History Allergies Allergy/AdvReac Type Severity Reaction Status Date / Time penicillin G Allergy HIVES Verified 12/12/24 14:35 Penicillins Allergy ALGY-Hives Verified 12/12/24 14:35 propoxyphene (From Allergy VERY SHORT Verified 12/12/24 14:35 Darvocet-N) OF BREATH PFSH Acute PFSH: Medical History (Updated 02/06/25 @ 17:42 by Nikolai Batista MD) Anticoagulation adequate with anticoagulant therapy Atrial fibrillation with controlled ventricular rate Systolic congestive heart failure last echo 11/2023-EF 35%, global LV hypokinesia, RWMA with hypokinetic anteroseptal wall, moderate MR, PASP 50 mmHg Type 2 diabetes mellitus, without long-term current use of insulin Adult-onset obesity GERD (gastroesophageal reflux disease) Anxiety PAD (peripheral artery disease) Ischemic cardiomyopathy Hypertension Hyperlipidemia CAD (coronary artery disease) Surgical History (Updated 02/06/25 @ 17:42 by Nikolai Batista MD) History of surgery on extremity 12/28/2014: Right groin and femoral artery exploration and primary repair of right femoral artery catheterization site History of carpal tunnel release History of femoropopliteal bypass Left common femoral artery bypass surgery performed by Dr. Carrillo on 12/15/2014 History of umbilical hernia repair History of cholecystectomy History of cardiac radiofrequency ablation Last in November 2024 S/P CABG x 3 GOMEZ to LAD, SVG to OM1, SVG to PDA Coronary angioplasty status 04/25/15: balloon angioplasty to PDA and PLB, GOMEZ to LAD patent, SVG to OM 1 patent, SVG to PDA patent. Prox RCA 60% stenosis. Family History Brother CAD (coronary artery disease) Diabetes Hyperlipidemia Hypertension Mother CAD (coronary artery disease) Cancer Diabetes Hyperlipidemia Hypertension Grandfather Cancer Father Diabetes Hyperlipidemia Hypertension Denies family history of Clotting disorder Dementia Psychiatric illness Chronic kidney disease (CKD) Suicide Anesthesia complication Bleeding disorder Family history of premature coronary artery disease Lung disease Stroke Social History Smoking and tobacco/nicotine status: former use of tobacco/nicotine Alcohol intake: never Substance/Drug Use: never Vitals/I&O/Wt Last Vital Signs Temp 98.2 F 02/06/25 15:23 Pulse 80 02/06/25 16:47 Resp 20 H 02/06/25 16:47 BP 122/77 02/06/25 16:13 Pulse Ox 95 02/06/25 16:47 O2 Del Method Nasal Cannula 02/06/25 16:47 O2 Flow Rate 3 02/06/25 16:47 02/06/25 02/06/25 02/06/25 06:59 14:59 22:59 Intake Total 107.375 / 107.375 Balance 107.375 / 107.375 Weight last 48 hrs Weight 111.584 kg Physical Exam Narrative: General: No acute distress, AO x3, obese, HEENT: PERRLA, pupils bilaterally equal and reactive Chest: Normal vesicular breath sounds, no added sounds, equal good air entry bilaterally CVS: S1-S2 regular, pansystolic murmur at apex radiating to anterior axillary line, no tachycardia, no gallops, no rubs Abdomen: Soft, nontender, no organomegaly, bowel sounds present Neuro: No focal deficits, no facial deformity, AO x3, power 5/5 in all limbs Data 02/06/25 15:58 02/06/25 15:58 A&P Assessment and plan (1) Chest pain: History of CAD post CABG. Last PCI back in . Last cardiac Lexiscan stress test back in 2023 showed a fixed defect. Close cycle troponin. Could be in setting of atrial flutter. Continue with home dose of Plavix, home dose of Coreg Appreciate A1c, lipid panel. (2) Atrial fibrillation with rapid ventricular response: Post cardioversion in ER. Post radiofrequency ablation in November 2024. Currently on amiodarone drip. Continue with home dose of oral amiodarone 200 mg oral daily, Coreg. Telemetry. Continue with home dose of Eliquis 5 mg twice daily. Will interrogate ICD (3) Atrial fibrillation status post cardioversion: (4) Systolic congestive heart failure: Last known EF of 35% with global LV hypokinesia without WMA with hypokinetic anteroseptal wall, moderate MR, PASP 50 mmHg. Repeat echocardiogram. Mild congestive heart failure acute decompensated currently. IV Lasix 40 mg daily. Fluid restriction to less than 1500 cc. Strict input output charting, daily weights. (5) S/P CABG x 3: (6) History of cardiac radiofrequency ablation: (7) Anticoagulation adequate with anticoagulant therapy: (8) Type 2 diabetes mellitus, without long-term current use of insulin: Last A1c of 7.1. Insulin sliding scale low-dose protocol. (9) Acute kidney injury: Reconciliation done for nephrotoxic drugs. Hold off on home dose of spironolactone. For now continue with Entresto. Monitor renal functions daily. Monitor electrolytes. Plan Full code Cardiac carb consistent diet. Fluid restriction to less than 1500 cc. Eliquis was sufficient for DVT prophylaxis Protonix for PUD prophylaxis PDMP PDMP Reviewed: Not Reviewed Attestations Medical Necessity Statement*: Admission for than 2 midnights for management of atrial flutter/fibrillation post cardioversion congestive heart failure in a patient with history of ischemic cardiomyopathy, atrial flutter post radiofrequency ablation Diagnoses Chest pain R07.9 Atrial fibrillation with rapid ventricular response I48.91 Atrial fibrillation status post cardioversion I48.91 Systolic congestive heart failure I50.20 S/P CABG x 3 Z95.1 History of cardiac radiofrequency ablation Z98.890 Anticoagulation adequate with anticoagulant therapy Z79.01 Type 2 diabetes mellitus, without long-term current use of insulin E11.9 Acute kidney injury N17.9
--- NOTE | 2025-02-06 17:13 | PC.NURSE ---
CARDIOVERSION WITH MODERATE SEDATION VERSED 2MG 1637 FENTANYL 50 MCG 1638 120 J SHOCK 1639 VITALS 1639- HR 80 97% 2 L NC 130/88
--- NOTE | 2025-02-06 17:20 | ECG_ITS ---
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 Measurements Intervals [place] Rate: 73 P: 0 GA: 0 QRS: 65 QRSD: 137 T: -56 QT: 436 QTc: 483 Interpretive Statements UNCERTAIN REGULAR RHYTHM INTRAVENTRICULAR CONDUCTION DELAY [130+ ms QRS DURATION] Compared to ECG 06/27/2024 08:39:32 Atrial flutter no longer present T-wave abnormality no longer present Possible ischemia no longer present Electronically Signed On 02-13-2025 09:43:30 CDT by Patrick Moody M.D. [email or web address]
[2025-02-06 17:46] LABS: Procalcitonin 0.11 ng/mL (0-0.5)
[2025-02-06 18:21] LABS: Iron 22 ug/dL (59-158); Percent Saturation 4.7 % (20-50); Total Iron Binding Capacity 462 mcg/dl; Unsaturated Iron Binding 440 ug/dL (112-347)
[2025-02-06] MEDS: FUROsemide 10 mg/mL SDV 4mL 40 MG IVP (18:39)
[2025-02-06 18:41] LABS: Troponin 5 2HR 152.4 ng/L (0-15); Troponin 5 2HR Delta 136.4 ABS# (0-10)
[2025-02-06 20:23] LABS: Vitamin B12 1358 pg/mL (232-1245)
[2025-02-06 21:00] LABS: Estmated Average Glucose 174; Hemoglobin A1C 7.7 % (4.0-6.0)
[2025-02-06] MEDS: TRAMadol 50 mg Tablet 100 MG PO (21:17)
[2025-02-06] MEDS: ranolazine (12HR) 500 mg Tablet PO (21:17)
[2025-02-06] MEDS: atorvastatin 40 mg Tablet 20 MG PO (21:17)
[2025-02-06] MEDS: sacubitril/valsartan 24-26 mg Tablet 2 EACH PO (21:17)
[2025-02-06] MEDS: apixaban 5 mg Tablet PO (21:18)
[2025-02-06] MEDS: pantoprazole 40 mg SDV IVP (21:18)
[2025-02-06] MEDS: carvedilol 12.5 mg Tablet PO (21:18)
[2025-02-06 21:28] LABS: Glucose Point of Care 129 mg/dL (70-110)
[2025-02-06 21:50] LABS: Bacteria Urine None Seen /hpf; RBC Urine 0-2 /hpf (0-2); Squamous Epithelial Cell Urine 0-5 /hpf (0-5); WBC Urine 0-5 /hpf (0-5)
[2025-02-06 21:59] LABS: Add Urine Microscopic? YES; Bilirubin Urine Negative (Negative); Blood Urine Negative (Negative); Glucose Urine UA 3+ (Normal); Ketones Urine Negative (Negative); Leukocyte Esterase Urine Negative (Negative); Nitrate Urine Negative (Negative); Protein Urine Negative (Negative); Specific Gravity, Urine 1.015 (1.005-1.030); Urine Appearance Clear (CLEAR); Urine Color Yellow (Yellow); Urobilinogen Urine 0.2 mg/dL (Negative)
--- NOTE | 2025-02-06 21:59 | ECG_ITS ---
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 Measurements Intervals [place] Rate: 80 P: 182 IA: 174 QRS: -30 QRSD: 216 T: 150 QT: 527 QTc: 608 Interpretive Statements ELECTRONIC ATRIAL PACEMAKER ELECTRONIC VENTRICULAR PACEMAKER Compared to ECG 02/06/2025 17:20:23 Prolonged QT interval now present Intraventricular conduction delay no longer present Electronically Signed On 02-13-2025 09:43:07 CDT by Patrick Moody M.D. [email or web address]
[2025-02-06 22:01] LABS: Amphetamines Screen Urine Negative (Negative); Barbiturates Screen Urine Negative (Negative); Benzodiazepines Screen Urine Negative (Negative); Cocaine Screen Urine Negative (Negative); Opiate Screen Urine Negative (Negative); PCP Screen Urine Negative (Negative); THC Screen Urine Negative (Negative)
[2025-02-06 22:40] LABS: Troponin 5 6HR 520.9 ng/L (0-15); Troponin 5 6HR Delta 504.9 ng/L (0-12)
[2025-02-07] VITALS (11 sets, daily range): BP systolic 104–149; BP diastolic 54–82; PULSE 64–89; RESP 16–31; TEMP 36.5–37.3; O2SAT 82–96
[2025-02-07 05:02] LABS: Alanine Aminotransferase 13 U/L (0-41); Albumin Level 3.9 g/dL (3.5-5.2); Alkaline Phosphatase 103 U/L (40-130); Anion Gap 14.2 (5-19); Aspartate Amino Transferase 28 U/L (0-40); Blood Urea Nitrogen 20 mg/dL (8-23); Calcium 8.6 mg/dL (8.5-10.5); Carbon Dioxide 27 mmol/L (22-29); Chloride 99 mmol/L (98-107); Globulin 2.9 g/dL (1.3-4.6); Glomerular Filtration Rate 54.7 mL/min (90-130); Glucose 116 mg/dL (65-115); Magnesium 2.6 mg/dL (1.7-2.3); Osmolality Calculated 286 mOsm/kg (285-295); Potassium 4.2 mmol/L (3.5-5.1); Sodium 136 mmol/L (136-145); Total Bilirubin 0.5 mg/dL (0.15-1.2); Total Protein 6.8 g/dL (6.6-8.7)
[2025-02-07 05:06] LABS: Chol HDL Ratio 3.24 mg/dL (1.0-5.00); Cholesterol 110 mg/dL (0-200); HDL Cholesterol 34 mg/dL (60-100); LDL Cholesterol Calculated 62 mg/dL (50-129); LDL HDL Ratio 1.82 RATIO (0.00-3.22); Triglycerides 72 mg/dL (0-150)
[2025-02-07] MEDS: cyanocobalamin 1,000 mcg Tablet 1000 MCG PO (05:33)
[2025-02-07] MEDS: clopidogrel 75 mg Tablet PO (05:33)
[2025-02-07] MEDS: amiodarone 200 mg Tablet PO (05:34)
[2025-02-07] MEDS: escitalopram 10 mg Tablet PO (05:34)
[2025-02-07 05:51] LABS: Folate Level > 20.0 ng/mL (4.5-32.2)
[2025-02-07 06:05] LABS: Glucose Point of Care 146 mg/dL (70-110)
[2025-02-07] MEDS: apixaban 5 mg Tablet PO (08:02)
[2025-02-07] MEDS: ranolazine (12HR) 500 mg Tablet PO ×2 (08:02→17:20)
[2025-02-07] MEDS: TRAMadol 50 mg Tablet 100 MG PO (08:02)
[2025-02-07] MEDS: acetaminophen 325 mg Tablet 650 MG PO (08:02)
[2025-02-07] MEDS: sacubitril/valsartan 24-26 mg Tablet 2 EACH PO ×2 (08:03→17:21)
[2025-02-07] MEDS: docusate sodium 100 mg Capsule PO ×2 (08:03→17:20)
[2025-02-07] MEDS: carvedilol 25 mg Tablet PO ×2 (08:03→17:08)
[2025-02-07 09:28] LABS: Troponin T (5th) Once 504 ng/L (0-15)
--- NOTE | 2025-02-07 09:49 | PC.SOCIAL ---
IMM Updated Updated pt on IMM. No questions voiced. Provided pt a copy. Initialed, dated, & timed a copy & placed in chart.
[2025-02-07] MEDS: FUROsemide 10 mg/mL SDV 4mL 40 MG IVP (10:03)
[2025-02-07] MEDS: heparin drip 25,000 UNIT/500 ML PREMIX 32 UNIT IV (10:09)
--- NOTE | 2025-02-07 11:36 | P.PN_ITS ---
<Statement entered by Patrick Moody M.D - 02/17/25 10:00> Patient was cared for in conjunction with an advanced practice practitioner.? I reviewed the chart and all pertinent data including imaging, telemetry, and laboratory results.? I discussed the patient in detail with the advanced practice practitioner.? Please see?their note for progress note, testing results and agreed upon plan of care for the patient. Subjective 2 Subjective: Patient s/p synchronized cardioversion. Currently sinus rhythm. Rates are controlled EF 25%. Troponins elevated up to 520. Denies chest pain or shortness of breath. States he feels much better. Vitals/I&O/Wt Last Vital Signs Temp 98.3 F 02/07/25 07:57 Pulse 81 02/07/25 07:57 Resp 23 H 02/07/25 07:57 BP 149/82 02/07/25 07:57 Pulse Ox 90 02/07/25 07:57 O2 Del Method Room Air 02/07/25 07:57 O2 Flow Rate 3 02/06/25 20:53 02/06/25 02/07/25 02/07/25 22:59 06:59 14:59 Intake Total 407.375 / 407.375 480 / 887.375 426.426 / 426.426 Output Total 1500 / 1500 800 / 2300 400 / 400 Balance -1092.625 / -1092.625 -320 / -1412.625 26.426 / 26.426 Weight last 48 hrs Weight 250 lb 9.6 oz Weight 245 lb 12.8 oz Weight 246 lb Physical Exam 2 Narrative: General: No apparent distress, healthy appearing, well nourished HENMT: normoceophalic Muskuloskeletal: Full ROM Respiratory: Normal respiratory effort, clear to auscultation bilaterally throughout all lung crawley, no use of accessory muscles Cardio: No JVD, regular rate, regular rhythm, S1 S2 normal, no murmurs, peripheral pulses 2+ radial palpated bilaterally Extremities: Full ROM, normal, normal capillary refill, no cyanosis, 1+ edema bilateral lower extremities Neuro: Alert and oriented x4, no focal motor deficits Psych: Affect normal, mental status grossly normal Skin: No rashes or lesions noted, no wounds Data 02/06/25 15:58 02/07/25 03:45 A&P Assessment and plan (1) Chest pain: (2) Atrial fibrillation with rapid ventricular response: (3) Atrial fibrillation status post cardioversion: (4) Systolic congestive heart failure: (5) S/P CABG x 3: (6) History of cardiac radiofrequency ablation: (7) Anticoagulation adequate with anticoagulant therapy: (8) Type 2 diabetes mellitus, without long-term current use of insulin: (9) Acute kidney injury: Plan Patient s/p cardioversion. Currently getting transitioned to oral amiodarone. Will need interrogation of device post cardioversion. Troponins are elevated up to 520. Patient will need angiogram to r/o NSTEMI. Echo shows EF of 35%. Will plan on angiogram tomorrow. Patient agrees to proceed. PDMP PDMP Reviewed: Not Reviewed Attestations 2 Medical Necessity Statement*: Care expected to cross 2 midnights due to above defined care Coding Level of Care Code Acute Code for g Fwd Diagnoses Chest pain R07.9 Atrial fibrillation with rapid ventricular response I48.91 Atrial fibrillation status post cardioversion I48.91 Acute on chronic systolic congestive heart failure I50.23 Heart failure chronicity: acute on chronic S/P CABG x 3 Z95.1 History of cardiac radiofrequency ablation Z98.890 Anticoagulation adequate with anticoagulant therapy Z79.01 Type 2 diabetes mellitus without complication, without long-term current use of insulin E11.9 Diabetes mellitus complication status: without complication Acute kidney injury N17.9
--- NOTE | 2025-02-07 12:43 | P.PN_ITS ---
Subjective 2 Subjective: No acute events overnight. Patient laying comfortably in bed. Seen with spouse at bedside. Has remained in sinus rhythm. Denies any chest pain overnight. Saturating 87 to 89% while laying down with head of the bed elevated to 10 degrees. Vitals/I&O/Wt Last Vital Signs Temp 97.8 F 02/07/25 12:00 Pulse 65 02/07/25 12:00 Resp 24 H 02/07/25 12:00 BP 104/59 02/07/25 12:00 Pulse Ox 96 02/07/25 12:00 O2 Del Method Nasal Cannula 02/07/25 12:00 O2 Flow Rate 3 02/06/25 20:53 02/06/25 02/07/25 02/07/25 22:59 06:59 14:59 Intake Total 407.375 / 407.375 480 / 887.375 426.426 / 426.426 Output Total 1500 / 1500 800 / 2300 400 / 400 Balance -1092.625 / -1092.625 -320 / -1412.625 26.426 / 26.426 Weight last 48 hrs Weight 113.67 kg Weight 111.493 kg Weight 111.584 kg Physical Exam 2 Narrative: General: No acute distress, AO x3, obese, HEENT: PERRLA, pupils bilaterally equal and reactive Chest: Normal vesicular breath sounds, no added sounds, equal good air entry bilaterally CVS: S1-S2 regular, pansystolic murmur at apex radiating to anterior axillary line, no tachycardia, no gallops, no rubs Abdomen: Soft, nontender, no organomegaly, bowel sounds present Neuro: No focal deficits, no facial deformity, AO x3, power 5/5 in all limbs Data 02/06/25 15:58 02/07/25 03:45 A&P Assessment and plan (1) Chest pain: History of CAD post CABG. Last PCI back in . Last cardiac Lexiscan stress test back in 2023 showed a fixed defect. Troponin cycle appreciated. 6-hour troponin more than 500. Will repeat troponin today morning. Patient currently chest pain-free. Continue with home dose of Plavix, home dose of Coreg Appreciate A1c, lipid panel. (2) Atrial fibrillation with rapid ventricular response: Post cardioversion in ER. Post radiofrequency ablation in November 2024. Currently on amiodarone drip. Continue with home dose of oral amiodarone 200 mg oral daily, Coreg. Telemetry. Given current need for possible cardiac angiogram in next 24 hours we will hold Eliquis and switch to heparin drip. Will interrogate ICD (3) Atrial fibrillation status post cardioversion: Last cardioversion in ER on 02/06/2025 (4) Systolic congestive heart failure: Last known EF of 35% with global LV hypokinesia without WMA with hypokinetic anteroseptal wall, moderate MR, PASP 50 mmHg. Repeat echocardiogram results pending. Mild congestive heart failure acute decompensated currently. IV Lasix 40 mg daily. Fluid restriction to less than 1500 cc. Strict input output charting, daily weights. (5) Elevated troponin: Troponin 6-hour up to 520. Patient has been having intermittent chest pains at home. Plan for cardiac angiogram in AM. N.p.o. after midnight. Switch from Eliquis to heparin drip for now. (6) S/P CABG x 3: (7) History of cardiac radiofrequency ablation: (8) Anticoagulation adequate with anticoagulant therapy: (9) Type 2 diabetes mellitus, without long-term current use of insulin: Last A1c of 7.1. Insulin sliding scale low-dose protocol. (10) Acute kidney injury: Creatinine improving to 1.3. Cannot rule out in setting of mild CRS. Reconciliation done for nephrotoxic drugs. Hold off on home dose of spironolactone. For now continue with Entresto. Monitor renal functions daily. Monitor electrolytes. Plan Full code Cardiac carb consistent diet. Fluid restriction to less than 1500 cc. Eliquis was sufficient for DVT prophylaxis Protonix for PUD prophylaxis PDMP PDMP Reviewed: Not Reviewed Attestations 2 Medical Necessity Statement*: Requires further hospitalization for management of atrial flutter post cardioversion, chest pain with elevated troponin patient with history of CABG post PCI, congestive heart failure Diagnoses Chest pain R07.9 Atrial fibrillation with rapid ventricular response I48.91 Atrial fibrillation status post cardioversion I48.91 Acute on chronic systolic congestive heart failure I50.23 Heart failure chronicity: acute on chronic Elevated troponin R79.89 S/P CABG x 3 Z95.1 History of cardiac radiofrequency ablation Z98.890 Anticoagulation adequate with anticoagulant therapy Z79.01 Type 2 diabetes mellitus without complication, without long-term current use of insulin E11.9 Diabetes mellitus complication status: without complication Acute kidney injury N17.9
[2025-02-07 16:50] LABS: Partial Thromboplastin Time 98.5 SECONDS (23.9-36.7)
[2025-02-07] MEDS: magnesium hydroxide 30 mL UDC PO (18:07)
[2025-02-07 18:14] LABS: Anion Gap 17.1 (5-19); Blood Urea Nitrogen 21 mg/dL (8-23); Calcium 8.5 mg/dL (8.5-10.5); Carbon Dioxide 23 mmol/L (22-29); Chloride 99 mmol/L (98-107); Glomerular Filtration Rate 66.4 mL/min (90-130); Glucose 135 mg/dL (65-115); Osmolality Calculated 285 mOsm/kg (285-295); Potassium 4.1 mmol/L (3.5-5.1); Sodium 135 mmol/L (136-145)
--- NOTE | 2025-02-07 19:52 | PC.NURSE ---
Received order From [facility] doctor Heidy to stop Amiodarone drip at 8 pm cyndy.
[2025-02-07] MEDS: pantoprazole 40 mg SDV IVP (20:10)
[2025-02-07] MEDS: atorvastatin 40 mg Tablet 20 MG PO (20:10)
[2025-02-07 23:22] LABS: Partial Thromboplastin Time 82.2 SECONDS (23.9-36.7)
[2025-02-08] VITALS (8 sets, daily range): BP systolic 96–118; BP diastolic 55–59; PULSE 60–77; RESP 11–24; TEMP 36.4–37.4; O2SAT 91–98
[2025-02-08] MEDS: heparin drip 25,000 UNIT/500 ML PREMIX 23 UNIT IV (04:14)
[2025-02-08 05:35] LABS: Basophils # 0.1 10^3/uL (0.0-0.1); Eosinophils # 0.3 10^3/uL (0.0-0.8); Eosinophils % 5.4 %; Hematocrit 31.9 % (37-53); Lymphocytes % 16.1 %; Mean Corpuscular HGB Conc 28.2 g/dL (30-55); Mean Corpuscular Hemoglobin 19.5 pg (27-33); Mean Platelet Volume 8.9 fL (7.4-10.4); Monocytes # 1.1 10^3/uL (0.2-0.9); Monocytes % 19.4 %; Neutrophils % 57.8 %; Nucleated Red Blood Cells % 0 %; Platelet Count 225 10^3/cmm (157-399); Red Blood Count 4.62 10^6/uL (3.85-5.65); Red Cell Distribution Width 20.2 % (12.1-15.1); White Blood Count 5.89 10^3/uL (3.29-11.43)
[2025-02-08 05:55] LABS: Partial Thromboplastin Time 77.8 SECONDS (23.9-36.7)
[2025-02-08 05:59] LABS: Alanine Aminotransferase 12 U/L (0-41); Albumin Level 3.8 g/dL (3.5-5.2); Alkaline Phosphatase 91 U/L (40-130); Anion Gap 16.2 (5-19); Aspartate Amino Transferase 18 U/L (0-40); Blood Urea Nitrogen 18 mg/dL (8-23); Calcium 8.3 mg/dL (8.5-10.5); Carbon Dioxide 25 mmol/L (22-29); Chloride 100 mmol/L (98-107); Globulin 2.8 g/dL (1.3-4.6); Glomerular Filtration Rate 66.4 mL/min (90-130); Glucose 124 mg/dL (65-115); Magnesium 2.8 mg/dL (1.7-2.3); Osmolality Calculated 287 mOsm/kg (285-295); Phosphorus 2.9 mg/dL (2.5-4.5); Potassium 4.2 mmol/L (3.5-5.1); Sodium 137 mmol/L (136-145); Total Bilirubin 0.7 mg/dL (0.15-1.2); Total Protein 6.6 g/dL (6.6-8.7)
[2025-02-08] MEDS: cyanocobalamin 1,000 mcg Tablet 1000 MCG PO (06:00)
[2025-02-08] MEDS: escitalopram 10 mg Tablet PO (06:00)
[2025-02-08] MEDS: aspirin 325 mg Tablet PO (06:00)
[2025-02-08] MEDS: amiodarone 200 mg Tablet PO (06:00)
[2025-02-08] MEDS: clopidogrel 75 mg Tablet PO (06:00)
[2025-02-08] MEDS: sodium chloride 0.9% 1,000 ML 50 ML IV (06:01)
[2025-02-08] MEDS: diphenhydrAMINE 50 mg Capsule PO (06:01)
--- NOTE | 2025-02-08 07:09 | W.PM.OPSUD ---
Surgery/Procedure H&P Update DATE OF PROCEDURE: February 08, 2025 DATE H&P PERFORMED: 02/06/25 H&P UPDATE INFORMATION: I have reviewed H&P completed within last 30 days, I have examined patient prior to procedure and No changes to prior documentation PREOP DIAGNOSIS: NSTEMI PRIMARY INDICATION FOR PROCEDURE: NSTEMI PLANNED PROCEDURE: Operation Date: 02/08/25 07:00 Proposed Procedures p Cardiac Catheterization(Left) - Patrick Moody M.D Possible percutaneous coronary intervention PATIENT REASSESSED PRIOR TO SEDATION, WITH NO CHANGE NOTED: Yes PHYSICAL EXAM: alert, oriented x 3, clear to auscultation bilaterally and regular rate & rhythm AIRWAY EVAL/ANESTHESIA PLAN: normal airway, ASA III, Risks, benefits & alternatives of sedation and/or procedure discussed and Patient agrees to continue as planned ADDITIONAL INFORMATION: Moderate sedation
[2025-02-08] MEDS: docusate sodium 100 mg Capsule PO ×2 (08:47→17:42)
[2025-02-08] MEDS: FUROsemide 10 mg/mL SDV 4mL 40 MG IVP (08:47)
[2025-02-08] MEDS: TRAMadol 50 mg Tablet 100 MG PO ×2 (08:47→17:42)
[2025-02-08] MEDS: ranolazine (12HR) 500 mg Tablet PO ×2 (08:47→17:42)
[2025-02-08] MEDS: carvedilol 25 mg Tablet PO ×2 (08:47→17:42)
[2025-02-08] MEDS: sacubitril/valsartan 24-26 mg Tablet 2 EACH PO ×2 (08:47→17:42)
--- NOTE | 2025-02-08 10:27 | P.PCN_ITS ---
Procedure Note: Date of procedure: 02/08/25 Pre-procedure diagnosis: NSTEMI Post-procedure diagnosis: other (Severe proximal LAD ISR and stenosis of diagonal artery post PCI) Procedure: Severe proximal LAD ISR S/P balloon angioplasty and severe proximal diagonal artery stenosis s/p PCI with 1 stent. GOMEZ to LAD and SVG to OM are patent. SVG to RCA is small sized and atretic. [place] RCA is patent with diffuse disease Plavix and eliquis at time of discharge Performing Provider: Patrick Moody Estimated blood loss (mL): 10 Complications: None Condition: stable Disposition: floor Coding Level of Care Code Acute Code for Chg Fwd
--- NOTE | 2025-02-08 10:31 | P.PN_ITS ---
Subjective 2 Subjective: Patient had PCI of diagonal artery with 1 stent and balloon angioplasty of proximal LAD stent. No chest pain. Vitals/I&O/Wt Last Vital Signs Temp 97.5 F L 02/08/25 08:00 Pulse 67 02/08/25 08:00 Resp 24 H 02/08/25 08:00 BP 96/56 02/08/25 08:00 Pulse Ox 91 02/08/25 08:00 O2 Del Method Room Air 02/08/25 08:00 O2 Flow Rate 2 02/07/25 23:25 02/07/25 02/08/25 02/08/25 22:59 06:59 14:59 Intake Total 754.299 / 1300.725 308.934 / 1609.659 120 / 120 Output Total 1300 / 2500 800 / 3300 Balance -545.701 / -1199.275 -491.066 / -1690.341 120 / 120 Weight last 48 hrs Weight 149 lb 8 oz Weight 250 lb 9.6 oz Weight 245 lb 12.8 oz Weight 246 lb Physical Exam 2 Narrative: GENERAL: Patient is alert, awake and oriented x3. [] NECK: No jugular vein distension. [] HEENT: No cyanosis. No icterus. No pallor. [] HEART: Regular rate and rhythm LUNGS: Clear to auscultate bilaterally. [] CENTRAL NERVOUS SYSTEM: Grossly nonfocal. [] EXTREMITIES: Lower extremities with no edema bilaterally. Data 02/09/25 05:51 02/09/25 05:51 A&P Assessment and plan (1) Chest pain: (2) Atrial fibrillation with rapid ventricular response: (3) Atrial fibrillation status post cardioversion: (4) Systolic congestive heart failure: (5) S/P CABG x 3: (6) History of cardiac radiofrequency ablation: (7) Anticoagulation adequate with anticoagulant therapy: (8) Type 2 diabetes mellitus, without long-term current use of insulin: (9) Acute kidney injury: Plan Patient is staying in paced rhythm post cardioversion. Had coronary angiogram performed that showed severe ISR of proximal LAD stent underwent balloon angioplasty. Also had PCI of diagonal artery with 1 stent. Continue Eliquis and Plavix Continue amiodarone. Thank you for involving us with care of this patient. Please call with questions PDMP PDMP Reviewed: Not Reviewed Attestations 2 Medical Necessity Statement*: Care expected to cross 2 midnight. Coding Level of Care Code Acute Code for Chg Fwd Diagnoses Chest pain R07.9 Atrial fibrillation with rapid ventricular response I48.91 Atrial fibrillation status post cardioversion I48.91 Acute on chronic systolic congestive heart failure I50.23 Heart failure chronicity: acute on chronic S/P CABG x 3 Z95.1 History of cardiac radiofrequency ablation Z98.890 Anticoagulation adequate with anticoagulant therapy Z79.01 Type 2 diabetes mellitus without complication, without long-term current use of insulin E11.9 Diabetes mellitus complication status: without complication Acute kidney injury N17.9
[2025-02-08 10:49] LABS: Partial Thromboplastin Time 58.8 SECONDS (23.9-36.7)
[2025-02-08] MEDS: morphine 4 mg/mL SDV 1 mL 2 MG IVP ×3 (11:24→20:37)
--- NOTE | 2025-02-08 12:40 | P.PN_ITS ---
Subjective 2 Subjective: No acute events overnight. Patient underwent cardiac angiogram earlier in the morning today. Tolerated procedure well. On examination laying comfortably in bed. Denies any nausea, vomiting, headache or difficulty breathing. Has remained in sinus rhythm. Vitals/I&O/Wt Last Vital Signs Temp 97.5 F L 02/08/25 12:00 Pulse 60 02/08/25 12:00 Resp 18 02/08/25 12:00 BP 108/55 02/08/25 12:00 Pulse Ox 93 02/08/25 12:00 O2 Del Method Room Air 02/08/25 12:00 O2 Flow Rate 2 02/07/25 23:25 02/07/25 02/08/25 02/08/25 22:59 06:59 14:59 Intake Total 754.299 / 1300.725 308.934 / 1609.659 120 / 120 Output Total 1300 / 2500 800 / 3300 Balance -545.701 / -1199.275 -491.066 / -1690.341 120 / 120 Weight last 48 hrs Weight 67.812 kg Weight 113.67 kg Weight 111.493 kg Weight 111.584 kg Physical Exam 2 Narrative: General: No acute distress, AO x3, obese, HEENT: PERRLA, pupils bilaterally equal and reactive Chest: Normal vesicular breath sounds, no added sounds, equal good air entry bilaterally CVS: S1-S2 regular, pansystolic murmur at apex radiating to anterior axillary line, no tachycardia, no gallops, no rubs Abdomen: Soft, nontender, no organomegaly, bowel sounds present Neuro: No focal deficits, no facial deformity, AO x3, power 5/5 in all limbs Data 02/08/25 05:28 02/08/25 05:28 A&P Assessment and plan (1) Chest pain: History of CAD post CABG. Last PCI back in . Last cardiac Lexiscan stress test back in 2023 showed a fixed defect. Troponin cycle appreciated. 6-hour troponin more than 500. Will repeat troponin today morning. Patient currently chest pain-free. Continue with home dose of Plavix, home dose of Coreg Appreciate A1c, lipid panel. Appreciate cardiology recommendations. Postcardiac angiogram. Patient underwent PCI and balloon angioplasty. (2) Atrial fibrillation with rapid ventricular response: Post cardioversion in ER. Post radiofrequency ablation in November 2024. Remains in normal sinus rhythm. Continue with home dose of oral amiodarone 200 mg oral daily, Coreg. Telemetry. Postcardiac angiogram. Will switch from heparin drip to Eliquis 5 mg twice daily. Will start Eliquis in evening. Will interrogate ICD (3) Atrial fibrillation status post cardioversion: Last cardioversion in ER on 02/06/2025 (4) Systolic congestive heart failure: Last known EF of 35% with global LV hypokinesia without WMA with hypokinetic anteroseptal wall, moderate MR, PASP 50 mmHg. Repeat echocardiogram results pending. Mild congestive heart failure acute decompensated currently. IV Lasix 40 mg daily. Fluid restriction to less than 1500 cc. Strict input output charting, daily weights. (5) Elevated troponin: Concern for non-ST elevation CT. Postcardiac angiogram. (6) S/P CABG x 3: (7) History of cardiac radiofrequency ablation: (8) Anticoagulation adequate with anticoagulant therapy: (9) Type 2 diabetes mellitus, without long-term current use of insulin: Last A1c of 7.1. Insulin sliding scale low-dose protocol. (10) Acute kidney injury: Resolved. Most likely in setting of CRS. Reconciliation done for nephrotoxic drugs. Hold off on home dose of spironolactone. For now continue with Entresto. Monitor renal functions daily. Monitor electrolytes. Plan Full code Cardiac carb consistent diet. Fluid restriction to less than 1500 cc. Eliquis was sufficient for DVT prophylaxis Protonix for PUD prophylaxis PDMP PDMP Reviewed: Not Reviewed Attestations 2 Medical Necessity Statement*: Requires further hospitalization for management of non-ST elevation CT requiring cardiac angiogram, post PCI in a patient with history of ischemic cardiomyopathy, A-fib with RVR post cardioversion, acute kidney injury, congestive heart failure Diagnoses Chest pain R07.9 Atrial fibrillation with rapid ventricular response I48.91 Atrial fibrillation status post cardioversion I48.91 Acute on chronic systolic congestive heart failure I50.23 Heart failure chronicity: acute on chronic Elevated troponin R79.89 S/P CABG x 3 Z95.1 History of cardiac radiofrequency ablation Z98.890 Anticoagulation adequate with anticoagulant therapy Z79.01 Type 2 diabetes mellitus without complication, without long-term current use of insulin E11.9 Diabetes mellitus complication status: without complication Acute kidney injury N17.9
[2025-02-08 17:10] LABS: Glucose Point of Care 166 mg/dL (70-110)
[2025-02-08 17:10] LABS: Glucose Point of Care 234 mg/dL (70-110)
[2025-02-08] MEDS: pantoprazole 40 mg SDV IVP (20:33)
[2025-02-08] MEDS: apixaban 5 mg Tablet PO (20:34)
[2025-02-08] MEDS: atorvastatin 40 mg Tablet 20 MG PO (20:34)
[2025-02-08 21:37] LABS: Glucose Point of Care 239 mg/dL (70-110)
[2025-02-08] MEDS: insulin lispro 100 unit/1 mL SUBCUT (22:30)
[2025-02-09] VITALS: BP 122/61; PULSE 76; RESP 21; TEMP 36.7; O2SAT 97
[2025-02-09 04:00] VITALS: BP 129/59; PULSE 69; RESP 19; TEMP 36.8; O2SAT 97
--- NOTE | 2025-02-09 04:23 | PC.NURSE ---
Assessed Patient femoral site upon entering room at 1999, site looked good, minimal shadowing of blood from removal, no breuising, swelling, or tenderness. 2100: patient saw their blood glucose was 239 and requested some insulin, he dows not take this at home but wanted his blood sugar under control. I contacted the physician and two units of humalog were ordered and given.
[2025-02-09] MEDS: cyanocobalamin 1,000 mcg Tablet 1000 MCG PO (05:39)
[2025-02-09] MEDS: clopidogrel 75 mg Tablet PO (05:39)
[2025-02-09] MEDS: amiodarone 200 mg Tablet PO (05:39)
[2025-02-09] MEDS: escitalopram 10 mg Tablet PO (05:39)
[2025-02-09 06:14] LABS: Glucose Point of Care 144 mg/dL (70-110)
[2025-02-09 06:21] LABS: Basophils # 0.1 10^3/uL (0.0-0.1); Basophils % 0.8 %; Eosinophils # 0.3 10^3/uL (0.0-0.8); Hematocrit 30.7 % (37-53); Lymphocytes % 16.8 %; Mean Corpuscular HGB Conc 28.7 g/dL (30-55); Mean Corpuscular Hemoglobin 19.8 pg (27-33); Mean Corpuscular Volume 69.1 fl (82-101); Mean Platelet Volume 9.3 fL (7.4-10.4); Monocytes # 1.3 10^3/uL (0.2-0.9); Monocytes % 20.2 %; Neutrophils # 3.51 10^3/uL (1.8-7.7); Neutrophils % 56.7 %; Nucleated Red Blood Cells % 0 %; Platelet Count 237 10^3/cmm (157-399); Red Blood Count 4.44 10^6/uL (3.85-5.65); Red Cell Distribution Width 20.1 % (12.1-15.1); White Blood Count 6.19 10^3/uL (3.29-11.43)
[2025-02-09 06:39] LABS: Alanine Aminotransferase 11 U/L (0-41); Albumin Level 3.5 g/dL (3.5-5.2); Alkaline Phosphatase 91 U/L (40-130); Aspartate Amino Transferase 19 U/L (0-40); Blood Urea Nitrogen 15 mg/dL (8-23); Calcium 8.4 mg/dL (8.5-10.5); Carbon Dioxide 23 mmol/L (22-29); Chloride 96 mmol/L (98-107); Glucose 113 mg/dL (65-115); Magnesium 2.6 mg/dL (1.7-2.3); Osmolality Calculated 276 mOsm/kg (285-295); Phosphorus 3.1 mg/dL (2.5-4.5); Sodium 132 mmol/L (136-145); Total Bilirubin 0.7 mg/dL (0.15-1.2); Total Protein 6.5 g/dL (6.6-8.7)
[2025-02-09 06:46] LABS: Anion Gap 17.1 (5-19); Potassium 4.1 mmol/L (3.5-5.1)
[2025-02-09 08:00] VITALS: BP 103/60; PULSE 79; RESP 16; TEMP 36.7; O2SAT 97
--- NOTE | 2025-02-09 08:10 | P.DS_ITS ---
Discharge Providers Date of Admission: 02/06/25 17:10 Date of Discharge: February 09, 2025 Attending Provider at Admission: Nikolai Batista MD Attending Provider at Discharge: Nikolai Batista MD Consults: Cardiology: Dr. Moody Primary Care Provider: Teodoro Jon DO Diagnoses at Discharge Discharge Diagnosis (1) Chest pain: Status: Acute (2) Atrial fibrillation with rapid ventricular response: Status: Acute (3) Atrial fibrillation status post cardioversion: Status: Acute (4) Systolic congestive heart failure: Status: Acute Qualifiers: Heart failure chronicity: acute on chronic Qualified Code(s): I50.23 - Acute on chronic systolic (congestive) heart failure (5) Elevated troponin: Status: Acute (6) S/P CABG x 3: Status: Acute Permanent problem details: GOMEZ to LAD, SVG to OM1, SVG to PDA (7) History of cardiac radiofrequency ablation: Status: Acute Permanent problem details: Last in November 2024 (8) Anticoagulation adequate with anticoagulant therapy: Status: Acute (9) Type 2 diabetes mellitus, without long-term current use of insulin: Status: Acute Qualifiers: Diabetes mellitus complication status: without complication Qualified Code(s): E11.9 - Type 2 diabetes mellitus without complications (10) Acute kidney injury: Status: Acute Reason for Visit Reason for Visit: v tach Brief History: Dwayne Salinas is a 69 year old male with past medical history of ischemic cardiomyopathy with a last known EF of 35% in 2023, last PCI back in 2022 with last stress test back in 2023 showing a fixed defect, post CABG, post ICD placement, post ablation back in November 2024 for a flutter presents to the ER today because of ongoing chest pain. Patient states usually he will chest pain on and off which would subside by itself in few seconds. Last episode of chest pain which persisted for minutes was on Monday. Today the chest pain did not subside by itself when they checked her vitals at home have elevated heart rate of more than 150 when EMS was called. Patient continued to have rapid heart rate with chest pain en route to the ER where he was given 150 mg of IV ami odarone bolus. In the ER first he was started on Cardizem drip which did not help later he was given 1 more push of IV amiodarone. Cardiology was consulted in the ER and patient underwent cardioversion. Patient himself denies any nausea, vomiting, headache, changes in medications recently, weight gain, cough, orthopnea, PND. Examination currently patient is in normal sinus rhythm with heart rate of 70 bpm saturating 96 to 98% on 2 L. Hospital Course Hospital Course Patient was admitted to the hospital for evaluation and management of A-fib with RVR post cardioversion. There were concern for CHF on admission for which he was started on IV diuresis. Given concerns for chest pain on admission, troponins were cycled which showed a delta of more than 500. He underwent cardiac angiogram with PCI for severe proximal LAD ISR status post balloon angioplasty and severe proximal diagonal artery stenosis status post PCI with 1 stent. Patient responded well to the treatment. During hospitalization his antihypertensives were adjusted. Is been discharged in likely stable condition with advised to follow-up with cardiology as an outpatient in 2 weeks and PCP in 1 week. Physical Exam Narrative: General: No acute distress, AO x3, obese, HEENT: PERRLA, pupils bilaterally equal and reactive Chest: Normal vesicular breath sounds, no added sounds, equal good air entry bilaterally CVS: S1-S2 regular, pansystolic murmur at apex radiating to anterior axillary line, no tachycardia, no gallops, no rubs Abdomen: Soft, nontender, no organomegaly, bowel sounds present Neuro: No focal deficits, no facial deformity, AO x3, power 5/5 in all limbs Discharge Data Studies Completed and Pending Completed Studies During Hospitalization Category Date Time Status XR chest 1V portable [id number] Stat Exams 02/06/25 15:24 Completed CV. echo complete* [id number] Stat Ultrasound 02/06/25 16:44 Completed Pending at discharge Category Date Time Status ADMINISTRATIVE RESIDENT request for service Routine Exams 02/08/25 07:00 Ordered Radiology Impressions Chest X-Ray 02/06/25 15:24 IMPRESSION: 1. No acute cardiopulmonary process. Mild cardiac enlargement unchanged. Echocardiogram: CONCLUSIONS LV systolic function mildly reduced with EF of 40-45%. Left atrial dilation. Mild mitral regurgitation. Trace pulmonic regurgitation IVC is dilated Patrick Moody MD (Electronically Signed) Final Date: 07 February 2025 Laboratory Results WBC 6.19 10^3/uL (3.29-11.43) 02/09/25 05:51 Corrected WBC Cancelled 02/07/25 03:45 RBC 4.44 10^6/uL (3.85-5.65) 02/09/25 05:51 Hgb 8.80 g/dL (11.27-16.99) L 02/09/25 05:51 Hct 30.7 % (37-53) L 02/09/25 05:51 MCV 69.1 fl (82-101) L 02/09/25 05:51 MCH 19.8 pg (27-33) L 02/09/25 05:51 MCHC 28.7 g/dL (30-55) L 02/09/25 05:51 RDW 20.1 % (12.1-15.1) H 02/09/25 05:51 Plt Count 237 10^3/cmm (157-399) 02/09/25 05:51 MPV 9.3 fL (7.4-10.4) 02/09/25 05:51 Gran % Cancelled 02/07/25 03:45 Neut % (Auto) 56.7 % 02/09/25 05:51 Lymph % (Auto) 16.8 % 02/09/25 05:51 [place] % (Auto) 20.2 % 02/09/25 05:51 Eos % (Auto) 5.0 % 02/09/25 05:51 Baso % (Auto) 0.8 % 02/09/25 05:51 Neut # (Auto) 3.51 10^3/uL (1.8-7.7) 02/09/25 05:51 Lymph # (Auto) 1.0 10^3/uL (0.8-4.8) 02/09/25 05:51 [place] # (Auto) 1.3 10^3/uL (0.2-0.9) H 02/09/25 05:51 Eos # (Auto) 0.3 10^3/uL (0.0-0.8) 02/09/25 05:51 Baso # (Auto) 0.1 10^3/uL (0.0-0.1) 02/09/25 05:51 Absolute Gran (auto) Cancelled 02/07/25 03:45 Nucleated RBC % (auto) 0 % 02/09/25 05:51 Nucleated RBCs # 0.0 /100WBC 02/09/25 05:51 PT 15.90 SECONDS (12.1-14.9) H 02/06/25 15:58 INR 1.18 (0.8-1.2) 02/06/25 15:58 APTT 58.8 SECONDS (23.9-36.7) H 02/08/25 10:20 Sodium 132 mmol/L (136-145) L 02/09/25 05:51 Potassium 4.1 mmol/L (3.5-5.1) 02/09/25 05:51 Chloride 96 mmol/L (98-107) L 02/09/25 05:51 Carbon Dioxide 23 mmol/L (22-29) 02/09/25 05:51 Anion Gap 17.1 (5-19) 02/09/25 05:51 BUN 15 mg/dL (8-23) 02/09/25 05:51 Creatinine 1.2 mg/dL (0.7-1.2) 02/09/25 05:51 GFR Calculation 60.0 mL/min (90-130) L 02/09/25 05:51 Glucose 113 mg/dL (65-115) 02/09/25 05:51 POC Glucose 144 mg/dL (70-110) H 02/09/25 06:03 Estimat Average Glucose 174 02/06/25 15:58 Hemoglobin A1c 7.7 % (4.0-6.0) H 02/06/25 15:58 Calculated Osmolality 276 mOsm/kg (285-295) L 02/09/25 05:51 Lactic Acid 1.3 mmol/L (0.5-2.2) 02/06/25 15:58 Calcium 8.4 mg/dL (8.5-10.5) L 02/09/25 05:51 Phosphorus 3.1 mg/dL (2.5-4.5) 02/09/25 05:51 Magnesium 2.6 mg/dL (1.7-2.3) H 02/09/25 05:51 Iron 22 ug/dL (59-158) L 02/06/25 15:58 TIBC 462 mcg/dl 02/06/25 15:58 % Saturation 4.7 % (20-50) L 02/06/25 15:58 Unsat Iron Binding 440 ug/dL (112-347) H 02/06/25 15:58 Total Bilirubin 0.7 mg/dL (0.15-1.2) 02/09/25 05:51 AST 19 U/L (0-40) 02/09/25 05:51 ALT 11 U/L (0-41) 02/09/25 05:51 Alkaline Phosphatase 91 U/L (40-130) 02/09/25 05:51 Troponin T 5th Gen ng/L 504 ng/L (0-15) H* 02/07/25 03:45 Troponin T Baseline 16 ng/L (0-15) H 02/06/25 15:58 Troponin T 120 Minute 152.4 ng/L (0-15) H 02/06/25 17:38 Delta Troponin T 136.4 ABS# (0-10) H* 02/06/25 17:38 Troponin T Hi Sens 6Hr 520.9 ng/L (0-15) H 02/06/25 22:03 Troponin T Hi Sens 6Hr Delta 504.9 ng/L (0-12) H* 02/06/25 22:03 NT-Pro-B Natriuret Pep 1520 pg/mL (0-125) H 02/06/25 15:58 Total Protein 6.5 g/dL (6.6-8.7) L 02/09/25 05:51 Albumin 3.5 g/dL (3.5-5.2) 02/09/25 05:51 Globulin 3.0 g/dL (1.3-4.6) 02/09/25 05:51 Triglycerides 72 mg/dL (0-150) 02/07/25 03:45 Cholesterol 110 mg/dL (0-200) 02/07/25 03:45 LDL Cholesterol, Calc 62 mg/dL (50-129) 02/07/25 03:45 HDL Cholesterol 34 mg/dL (60-100) L 02/07/25 03:45 LDL/HDL Ratio 1.82 RATIO (0.00-3.22) 02/07/25 03:45 Cholesterol/HDL Ratio 3.24 mg/dL (1.0-5.00) 02/07/25 03:45 Vitamin B12 1358 pg/mL (232-1245) H 02/06/25 17:38 Folate > 20.0 ng/mL (4.5-32.2) 02/07/25 03:45 Procalcitonin 0.11 ng/mL (0-0.5) 02/06/25 15:58 TSH 2.43 uIU/mL (0.27-4.20) 02/06/25 15:58 Urine Color Yellow (Yellow) 02/06/25 21: Urine Appearance Clear (CLEAR) 02/06/25 21: Urine pH 6.0 (5-7) 02/06/25 21: Ur Specific [place] 1.015 (1.005-1.030) 02/06/25 21: Urine Protein Negative (Negative) 02/06/25 21: Urine Glucose (UA) 3+ (Normal) H 02/06/25 21: Urine Ketones Negative (Negative) 02/06/25: Urine Blood Negative (Negative) 02/06/25 21: Urine Nitrate Negative (Negative) 02/06/25: Urine Bilirubin Negative (Negative) 02/06/25: Urine Urobilinogen 0.2 mg/dL (Negative) 02/06/25 21: Ur Leukocyte Esterase Negative (Negative) 02/06/25 21: Urine RBC 0-2 /hpf (0-2) 02/06/25 21: Urine WBC 0-5 /hpf (0-5) 02/06/25 21: Ur Squamous Epith Cells 0-5 /hpf (0-5) 02/06/25 21: Amorphous Sediment Not Reportable 02/06/25 21: Urine Bacteria None seen /hpf (NONE) 02/06/25: Hyaline Casts 0.40 /lpf 02/06/25 21: Urine Opiates Screen Negative ng/mL (Negative) 02/06/25 21: Ur Barbiturates Screen Negative ng/mL (Negative) 02/06/25 21: Ur Phencyclidine Scrn Negative ng/mL (Negative) 02/06/25 21: Ur Amphetamines Screen Negative ng/mL (Negative) 02/06/25 21: U Benzodiazepines Scrn Negative ng/mL (Negative) 02/06/25 21: Urine Cocaine Screen Negative ng/mL (Negative) 02/06/25: U Marijuana (THC) Screen Negative ng/mL (Negative) 02/06/25 21:27 Vitals Last Vital Signs Temp 98.3 F 02/09/25 04:00 Pulse 69 02/09/25 04:00 Resp 19 H 02/09/25 04:00 BP 129/59 02/09/25 04:00 Pulse Ox 97 02/09/25 04:00 O2 Del Method Room Air 02/09/25 04:00 O2 Flow Rate 2 02/07/25 23:25 Discharge Plan Discharge Patient Disposition: Home Condition: Stable Prescriptions: Continued acetaminophen [Tylenol Extra Strength] 500 mg tablet 1,000 mg PO TID PRN (Reason: Pain) Rx Instructions: takes with tramadol cholecalciferol (vitamin D3) 2,000 unit tablet 2,000 unit PO QAM tramadol 50 mg tablet 100 mg PO TID PRN (Reason: Pain) Qty: 180 5RF escitalopram oxalate 10 mg tablet 10 mg PO QAM Qty: 90 1RF clopidogrel 75 mg tablet 75 mg PO QAM Qty: 90 3RF nitroglycerin [Nitrostat] 0.4 mg tablet, sublingual 0.4 mg SUBLINGUAL Q5M PRN (Reason: Chest Pain) Qty: 25 2RF Rx Instructions: do not exceed 3 doses per episode (DME) ReliOn Prime Test Strips Strip See Rx Instructions .ROUTE .COMPLEX Qty: 100 4RF Dose Instruction: USE 1 TEST STRIP TO BLOOD SUGARS DAILY FOR DIABETES MELLITUS DX E11.9 Rx Instructions: USE 1 TEST STRIP TO BLOOD SUGARS DAILY FOR DIABETES MELLITUS DX E11.9 glyburide 5 mg tablet 5 mg PO QAM Qty: 90 3RF Rx Instructions: take prior to first meal of the day tadalafil 5 mg tablet 5 mg PO DAILY Qty: 30 3RF Invokana 300 mg tablet 300 mg PO QAM Qty: 90 3RF simvastatin 20 mg tablet 20 mg PO BEDTIME Qty: 90 3RF omeprazole 20 mg capsule,delayed release(DR/EC) 20 mg PO BID Qty: 180 3RF Centrum Silver Men 300-600-300 mcg Tablet 1 tab PO QAM ascorbic acid (vitamin C) [Vitamin C] 1,000 mg Tablet 1,000 mg PO QAM cyanocobalamin (vitamin B-12) [Vitamin B-12] 1,000 mcg Tablet 1,000 mcg PO QAM Eliquis 5 mg tablet 5 mg PO BID spironolactone 25 mg tablet 12.5 mg PO QAM furosemide [Lasix] 40 mg tablet 40 mg PO QAM amiodarone 200 mg tablet 200 mg PO QAM ranolazine 500 mg tablet extended release 12 hr 500 mg PO BID Entresto 49-51 mg tablet 1 tab PO BID zinc sulfate 50 mg zinc (220 mg) Tablet 50 mg PO QAM Changed carvedilol 25 mg tablet 25 mg PO BID Qty: 135 3RF Discharge Orders: Discharge Order (Routine); Ordered 02/09/25 Ordered By: Nikolai Batista Referrals: Nancy Baltazar FNP [Nurse Practitioner, Cardiology] Referral Note: We have notified your physician's clinic of the need for a follow-up appointment to be scheduled. If you have not heard from them within the next 2 business days, please call them directly. Teodoro Jon DO [Primary Care Provider, Family Practice] Referral Note: We have notified your physician's clinic of the need for a follow-up appointment to be scheduled. If you have not heard from them within the next 2 business days, please call them directly. Discharge Diet: Cardiac Discharge Activity: Resume usual activity and Increase activity as tolerated Patient Instructions: Coronary Intravascular Stent Placement (DC), Chest Pain Stoplight, Opioid Safety, Post Angiogram Home Care Instructions, Patient Portal & [place] Instructions Discharge Attestations Time Spent in Discharge Care*: greater than 30 min Specific Discharge Activities: educating patient, educating and/or supporting family/caregiver, discussing with pcp/other providers, discussing with caseworker intake/social workers/dc planners, documenting/other paperwork and evaluating patient/reviewing data Status at Discharge: Cognitive status at discharge: cognitively intact , Behavioral status at discharge: cooperative , Functional status at discharge: independent ambulation , Overall status at discharge: patient is back to baseline Quality Metrics Clinical Quality Measures [ No reported AMI, CVA or VTE this stay] Coding Level of Care Code 03390 Total time (in minutes) for Discharge: 65 Diagnoses Chest pain R07.9 Atrial fibrillation with rapid ventricular response I48.91 Atrial fibrillation status post cardioversion I48.91 Acute on chronic systolic congestive heart failure I50.23 Heart failure chronicity: acute on chronic Elevated troponin R79.89 S/P CABG x 3 Z95.1 History of cardiac radiofrequency ablation Z98.890 Anticoagulation adequate with anticoagulant therapy Z79.01 Type 2 diabetes mellitus without complication, without long-term current use of insulin E11.9 Diabetes mellitus complication status: without complication Acute kidney injury N17.9
[2025-02-09] MEDS: ranolazine (12HR) 500 mg Tablet PO (08:31)
[2025-02-09] MEDS: sacubitril/valsartan 24-26 mg Tablet 2 EACH PO (08:31)
[2025-02-09] MEDS: apixaban 5 mg Tablet PO (08:31)
[2025-02-09] MEDS: carvedilol 25 mg Tablet PO (08:31)
[2025-02-09] MEDS: docusate sodium 100 mg Capsule PO (08:32)
[2025-02-09] MEDS: FUROsemide 10 mg/mL SDV 4mL 40 MG IVP (08:38)
--- NOTE | 2025-02-09 10:16 | PM.PN ---
Vitals/I&O/Wt Last Vital Signs Temp 98.0 F 02/09/25 08:00 Pulse 79 02/09/25 08:00 Resp 16 02/09/25 08:00 BP 103/60 02/09/25 08:00 Pulse Ox 97 02/09/25 08:00 O2 Del Method Room Air 02/09/25 08:00 O2 Flow Rate 2 02/07/25 23:25 02/08/25 02/09/25 02/09/25 22:59 06:59 14:59 Intake Total 1420 / 1900 120 / 2020 240 / 240 Output Total 1800 / 2400 800 / 3200 750 / 750 Balance -380 / -500 -680 / -1180 -510 / -510 Weight last 48 hrs Weight 146 lb 4.8 oz Weight 146 lb 6.4 oz Weight 149 lb 8 oz Data 02/09/25 05:51 02/09/25 05:51 A&P PDMP PDMP Reviewed: Not Reviewed Coding Level of Care Code Acute Code for Chg Fwd
[2025-02-09 10:41] VITALS: BP 103/60; PULSE 86; O2SAT 95
== END 2025-02-09 11:03 | disposition home or self-care (01) | DRG 321 ==
LOC: ER 15:44 → CSU 17:10
PROVIDERS: Internal Medicine; Admitting Provider Student in an Organized Health Care Education/Training Program; Emergency Provider Emergency Medicine; PCP Family Medicine; Visit Provider Student in an Organized Health Care Education/Training Program
PROC: 027034Z Dilation of Coronary Artery, One Artery with Drug-eluting Intraluminal Device, Percutaneous Approach (ICD-10-PCS; principal; 2025-02-08 07:00)
PROC: 027034Z Dilation of Coronary Artery, One Artery with Drug-eluting Intraluminal Device, Percutaneous Approach (ICD-10-PCS; 2025-02-08 07:00)
DX: I21.4 Non-ST elevation (NSTEMI) myocardial infarction (principal); I50.23 Acute on chronic systolic (congestive) heart failure; I48.91 Unspecified atrial fibrillation; I25.10 Atherosclerotic heart disease of native coronary artery without angina pectoris; E11.51 Type 2 diabetes mellitus with diabetic peripheral angiopathy without gangrene; I25.5 Ischemic cardiomyopathy; F41.9 Anxiety disorder, unspecified; K21.9 Gastro-esophageal reflux disease without esophagitis; E78.5 Hyperlipidemia, unspecified; Z79.891 Long term (current) use of opiate analgesic; Z79.02 Long term (current) use of antithrombotics/antiplatelets; Z79.01 Long term (current) use of anticoagulants; Z95.1 Presence of aortocoronary bypass graft; Z87.891 Personal history of nicotine dependence; Z98.890 Other specified postprocedural states
CPT/HCPCS: 36415; 36416; 71045; 80048; 80053; 80061; 80306; 81001; 82607; 82746; 82962; 83036; 83540; 83550; 83605; 83735; 83880; 84100; 84145; 84443; 84484; 85025; 85347; 85610; 85730; 92920; 93005; 93306; 93455; 94664; 96365; 96366; 96367; 96372; 96375; 96376; 99152; 99153; 99291; A4222; A9270; C1725; C1760; C1769; C1874; C1887; C1894; C9600; G0269; J0283; J1644; J1815; J1938; J2250; J2270; J2470; J3010; J3490; J7030; J9999; Q0163; Q9967

== ENCOUNTER 2025-02-18 12:09 | Outpatient (CLI) | payer MEDICARE, OTHER, SELFPAY ==
[2025-02-18 12:45] LABS: Hematocrit 38.2 % (37-53); Hemoglobin 10.80 g/dL (11.27-16.99); Mean Corpuscular HGB Conc 28.3 g/dL (30-55); Mean Corpuscular Hemoglobin 20.1 pg (27-33); Mean Corpuscular Volume 71.0 fl (82-101); Nucleated Red Blood Cells % 0 %; Platelet Count 312 10^3/cmm (157-399); Red Blood Count 5.38 10^6/uL (3.85-5.65); White Blood Count 5.29 10^3/uL (3.29-11.43)
[2025-02-18 12:59] LABS: Alanine Aminotransferase 13 U/L (0-41); Albumin Level 4.3 g/dL (3.5-5.2); Alkaline Phosphatase 116 U/L (40-130); Anion Gap 17.2 (5-19); Aspartate Amino Transferase 13 U/L (0-40); Blood Urea Nitrogen 23 mg/dL (8-23); Calcium 9.1 mg/dL (8.5-10.5); Carbon Dioxide 25 mmol/L (22-29); Chloride 97 mmol/L (98-107); Globulin 3.6 g/dL (1.3-4.6); Glucose 227 mg/dL (65-115); Magnesium 2.6 mg/dL (1.7-2.3); Osmolality Calculated 289 mOsm/kg (285-295); Potassium 5.2 mmol/L (3.5-5.1); Sodium 134 mmol/L (136-145); Total Protein 7.9 g/dL (6.6-8.7)
== END 2025-02-18 12:10 | disposition home or self-care (01) ==
LOC: LAB 12:12
PROVIDERS: PCP Family Medicine; Visit Provider Family Medicine
DX: I25.10 Atherosclerotic heart disease of native coronary artery without angina pectoris (principal); E11.9 Type 2 diabetes mellitus without complications; N17.9 Acute kidney failure, unspecified; D64.9 Anemia, unspecified
CPT/HCPCS: 36415; 80053; 83735; 85025

== ENCOUNTER → 2025-02-24 14:25 | Outpatient (BNVA) | payer MEDICARE, OTHER, SELFPAY | PROVIDERS: PCP Family Medicine; Visit Provider Nurse Practitioner Family | DX: I48.20 Chronic atrial fibrillation, unspecified (principal); Z79.01 Long term (current) use of anticoagulants; I48.92 Unspecified atrial flutter; Z09 Encounter for follow-up examination after completed treatment for conditions other than malignant neoplasm; I73.9 Peripheral vascular disease, unspecified; I10 Essential (primary) hypertension; Z95.1 Presence of aortocoronary bypass graft; Z95.5 Presence of coronary angioplasty implant and graft; Z87.891 Personal history of nicotine dependence | CPT/HCPCS: 80053; 85025; 99213 ==

== ENCOUNTER 2025-04-01 14:32 | Outpatient (CLI) | payer MEDICARE, OTHER, SELFPAY ==
[2025-04-01 15:35] LABS: Blood Urea Nitrogen 27 mg/dL (8-23); Calcium 8.5 mg/dL (8.5-10.5); Carbon Dioxide 22 mmol/L (22-29); Chloride 102 mmol/L (98-107); Glucose 150 mg/dL (65-115); Osmolality Calculated 290 mOsm/kg (285-295); Sodium 136 mmol/L (136-145)
[2025-04-01 15:45] LABS: Anion Gap 16.3 (5-19); Potassium 4.3 mmol/L (3.5-5.1)
== END 2025-04-01 14:33 | disposition home or self-care (01) ==
PROVIDERS: PCP Family Medicine; Visit Provider Nurse Practitioner Family
DX: N17.9 Acute kidney failure, unspecified (principal); I48.91 Unspecified atrial fibrillation
CPT/HCPCS: 36415; 80048

== ENCOUNTER 2025-04-15 11:48 | Outpatient (CLI) | payer MEDICARE, OTHER, SELFPAY ==
[2025-04-15 12:42] LABS: Anion Gap 18.8 (5-19); Blood Urea Nitrogen 24 mg/dL (8-23); Calcium 8.4 mg/dL (8.5-10.5); Carbon Dioxide 22 mmol/L (22-29); Chloride 98 mmol/L (98-107); Glucose 217 mg/dL (65-115); Osmolality Calculated 289 mOsm/kg (285-295); Potassium 4.8 mmol/L (3.5-5.1); Sodium 134 mmol/L (136-145)
== END 2025-04-15 11:49 | disposition home or self-care (01) ==
LOC: LAB 11:52
PROVIDERS: PCP Family Medicine; Visit Provider Nurse Practitioner Family
DX: I25.10 Atherosclerotic heart disease of native coronary artery without angina pectoris (principal)
CPT/HCPCS: 36415; 80048

== ENCOUNTER → 2025-04-23 14:05 | Outpatient (BNVA) | payer MEDICARE, OTHER, SELFPAY | PROVIDERS: PCP Family Medicine; Visit Provider Internal Medicine Cardiovascular Disease | DX: I48.91 Unspecified atrial fibrillation (principal); I95.9 Hypotension, unspecified; I10 Essential (primary) hypertension; I25.10 Atherosclerotic heart disease of native coronary artery without angina pectoris; R53.83 Other fatigue; Z79.01 Long term (current) use of anticoagulants; Z87.891 Personal history of nicotine dependence | CPT/HCPCS: 99214 ==

== ENCOUNTER 2025-05-06 11:06 | Outpatient (CLI) | payer MEDICARE, OTHER, SELFPAY ==
[2025-05-06 11:58] LABS: Hematocrit 33.2 % (37-53); Hemoglobin 8.90 g/dL (11.27-16.99); Mean Corpuscular HGB Conc 26.8 g/dL (30-55); Mean Corpuscular Hemoglobin 18.1 pg (27-33); Mean Corpuscular Volume 67.3 fl (82-101); Nucleated Red Blood Cells % 0 %; Platelet Count 274 10^3/cmm (157-399); Red Blood Count 4.93 10^6/uL (3.85-5.65); White Blood Count 5.05 10^3/uL (3.29-11.43)
[2025-05-06 12:23] LABS: Anion Gap 14.5 (5-19); Blood Urea Nitrogen 17 mg/dL (8-23); Calcium 8.5 mg/dL (8.5-10.5); Carbon Dioxide 25 mmol/L (22-29); Chloride 100 mmol/L (98-107); Glucose 189 mg/dL (65-115); Osmolality Calculated 287 mOsm/kg (285-295); Potassium 4.5 mmol/L (3.5-5.1); Sodium 135 mmol/L (136-145)
== END 2025-05-06 11:07 | disposition home or self-care (01) ==
PROVIDERS: PCP Family Medicine; Visit Provider Internal Medicine Cardiovascular Disease
DX: I95.9 Hypotension, unspecified (principal); I48.91 Unspecified atrial fibrillation; I10 Essential (primary) hypertension
CPT/HCPCS: 36415; 80048; 85025

== ENCOUNTER → 2025-05-27 10:25 | Outpatient (BNVA) | payer MEDICARE, OTHER, SELFPAY | PROVIDERS: PCP Family Medicine; Visit Provider Family Medicine | DX: E11.9 Type 2 diabetes mellitus without complications (principal); I10 Essential (primary) hypertension; I25.10 Atherosclerotic heart disease of native coronary artery without angina pectoris; E78.49 Other hyperlipidemia | CPT/HCPCS: 80061; 82607; 83036 ==

== ENCOUNTER 2025-06-16 20:24 | Inpatient (IN) | payer MEDICARE, OTHER, SELFPAY ==
--- OUTSIDE RECORDS SUMMARY | 2025-06-11 08:48 | XMS_ITS | Encounter Summary ---
Author Organization [facility] Address [address] [place] [address] Care Team Providers Care Chinese Medicine Practitioner Name Role Phone Teodoro Jon DO Primary Care Provider [phone] Reason for Visit * Auth/Cert (Routine) Specialty Diagnoses / Procedures Referred By Contac t Referred To Contact Cardiology Diagnoses A-fib (CMS/HCC) Procedures [place] CARDIOVERSION ELECTIVE ARRHYTHMIA EXTERNAL Cardioversion Ana Denis MD [address] [facility] [address] [place] [phone] Phone: tel: fax: [facility] Cardiac Contact And Service Clerks Supervisor [address] [place] [address] Phone: tel: fax: Referral ID Status Reason Start Date Expiration Date Visits Re quested Visits Authorized [id number] 1 1 Encounter Details Date Type Department Care Team (Latest Contact Info) Description 06/11/2025 9:48 AM CDT - 06/11/2025 2:33 PM CDT Hospital Encounter [facility] [address] [place] [address] Ana Denis MD [address] [facility] [address] [place] [phone] A-fib (CMS/HCC) Discharge Disposition: Home or Self Care Social History Tobacco Use Types Packs/Day Years [...] on file Legal 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 Gender Identity Not on file Sexual Orientation Not on file documented as of this encounter Last Filed Vital Signs Vital Sign Reading Time Taken Comments Blood Pressure 110/81 06/11/2025 2:00 PM CDT Pulse 97 06/11/2025 2:00 PM CDT Temperature 36.3 C (97.4 F) 06/11/2025 10:00 AM CDT Respiratory Rate 22 06/11/2025 2:00 PM CDT Oxygen Saturation 97% 06/11/2025 2:00 PM CDT Inhaled Oxygen Concentration - - Weight 113.3 kg (249 lb 12.5 oz) 2024 10:40 AM CDT Height 180.3 cm (5' 11 ) 06/11/2025 10: 40 AM CDT Body Mass Index 34.84 06/11/2025 10:40 AM CDT documented in this encounter Discharge Instructions * Discharge Instructions* Charo Conrad RN - 06/11/2025 1:28 PM CDT Images from the original note were not included. Ana Patient Instructions Cardioversion: After Your Visit Your Care Instructions Cardioversion is a treatment for an abnormal heartbeat, such as atrial fibrillation. In cardioversion, a brief electric shock is given to the heart to reset its rhythm. The shock comes through metal paddles or patches placed on the outside of your chest. Cardioversion usually restores the heartbeatto normal. After the procedure, you may have redness, like a sunburn, where the paddles were. Do not drive until the day after a cardioversion. You can eat and drink when you feel ready to. Your doctor may haveyou take medicines daily to help the heart beat normally and to prevent blood clots. Your doctor may prescribe medicine before and after cardioversion to help keep your heart in a normal rhythm afterthe procedure. Instead of electric cardioversion, your doctor may try to convert your heart to a normal rhythm using medicine given through a vein. This is usually done in a clinic or hospital. Follow-up care is a stevenson part of your treatment and safety. Be sure to make and go to all appointments, and call your doctor if you are having problems. It???s also a good idea to know your test results and keep a list of the medicines you take. How can you care for yourself at home? Medicines Take your medicines exactly as prescribed. Call your doctor if you think you are having a problem with your medicine. You may take some of the following medicines: Beta-blockers such as propranolol (Inderal), metoprolol (Lopressor), or carvedilol (Coreg). Calcium channel blockers such as diltiazem (Cardizem) or verapamil (Calan). Digoxin (Lanoxin). Antiarrhythmic medicines such as amiodarone (Cordarone), procainamide, or flecainide (Tambocor). You will get more details on the specific medicines your doctor prescribes. If your doctor has given you blood thinners such as warfarin (Coumadin) to prevent blood clots, be sure to: Take your medicine at the same time each day. Talk with your doctor before you make any major changes to your diet or start a weight loss plan. The foods that you eat can affect how well blood thinners work for you. Tell your dentist, pharmacist, and other health professionals that you take blood thinners. Watch for unusual bruising or bleeding, such as blood in urine, maroon or black stools, or bleedingfrom the nose or gums. Get regular blood tests to check how fast your blood clots. Wear medical alert jewelry that says you take blood thinners. You can buy this at most drugstores. Do not take any vitamins, zhqc-aip-ksxnndm medicines, or herbal products without talking to your doctor first. Lifestyle changes Do not smoke. Smoking increases your risk of stroke and heart attack. If you need help quitting, talk to your doctor about stop-smoking programs and medicines. These can increase your chances of quitting for good. Limit alcohol to 2 drinks a day for men and 1 drink a day for women. Alcohol may interfere with blood thinners. It also increases your risk of falls, which can cause bruising and bleeding. Limit or avoid caffeine (coffee, tea, and cola drinks) and other stimulants (decongestants, npqq-uhj-cszmgrr cold and flu medicines, and illegal substances) if your doctor says to. They can trigger heart problems. If you are taking blood thinners, avoid sports or activities that could lead to injury. Make your home safe and take other measures to reduce your risk of falling. Always wear a seat belt while in a car. Activity If your doctor recommends it, get more exercise. Walking is a good choice. Bit by bit, increase theamount you walk every day. Try for 30 minutes on most days of the week. You also may want to swim, bike, or do other activities. When you exercise, watch for signs that your heart is working too hard. You are pushing too hard ifyou cannot talk while you are exercising. If you become short of breath or dizzy or have chest pain, sit down and rest immediately. If your doctor has not set you up with a cardiac rehabilitation program, talk to him or her about whether that is right for you. Cardiac rehab includes supervised exercise, help with diet and lifestyle changes, and emotional support. It may reduce your risk of future heart problems. Check your pulse regularly. Place two fingers on the artery at the palm side of your wrist in line with your thumb. If your heartbeat seems uneven or fast, talk to your doctor. When should you call for help? Call 911 anytime you think you may need emergency care. For example, call if: You have severe trouble breathing. You cough up pink, foamy mucus and you have trouble breathing. You have symptoms of a heart attack. These may include: Chest pain or pressure, or a strange feeling in the chest. Sweating. Shortness of breath. Nausea or vomiting. Pain, pressure, or a strange feeling in the back, neck, jaw, or upper belly or in one or both shoulders or arms. Lightheadedness or sudden weakness. A fast or irregular heartbeat. After you call 911, the composing machine operator may tell you to chew 1 adult-strength or 2 to 4 low-dose aspirin. Wait for an ambulance. Do not try to drive yourself. You have signs of a stroke. These may include: Sudden numbness, paralysis, or weakness in your face, arm, or leg, especially on only one side of your body. New problems with walking or balance. Sudden vision changes. Drooling or slurred speech. New problems speaking or understanding simple statements, or feeling confused. A sudden, severe headache that is different from past headaches. You cough up blood. You vomit blood or what looks like coffee grounds. You pass maroon or very bloody stools. You passed out (lost consciousness). Call your doctor now or seek immediate medical care if: You have new or increased shortness of breath. You are dizzy or lightheaded, or you feel like you may faint. You have sudden weight gain, such as 3 pounds or more in 2 to 3 days. You have increased swelling in your legs, ankles, or feet. You have new bruises or blood spots under your skin. You have a nosebleed. Your gums bleed when you brush your teeth. You have blood in your urine. Your stools are black and tarlike or have streaks of blood. You have vaginal bleeding when you are not having your period, or heavy period bleeding. Watch closely for changes in your health, and be sure to contact your doctor if you have any problems. Where can you learn more? Go to www.[employer] in the Health Information search box. Enter S885 in the search box to learn more about Cardioversion: After Your Visit. Last Revised: January 27, 2011 ?? [id number] [employer]. Care instructions adapted under license by [employer]. [employer] disclaims any warranty or liability for your use of this information. This information is not intended to represent the ethical and evangelical beliefs of [facility]. This care instruction is for use with your licensed healthcare professional. If you have questions about a medical condition or this instruction, always ask your healthcare professional. [employer] disclaims any warranty or liability for your use of this information. documented in this encounter Medications at Time of Discharge pantoprazole (PROTONIX) 40 mg Tablet, Delayed Release (E.C.) Take 40 mg by mouth daily. 05/27/2025 tadalafil (CIALIS) 5 mg tablet 5 mg 1 time daily as needed. canagliflozin (Invokana) 300 mg tablet Take 300 mg by mouth daily before breakfast. amiodarone (CORDARONE) 200 mg tablet Take 200 mg by mouth 2 times daily. ranolazine ER (RANEXA) 500 mg Extended Release 12 hour tablet Take 500 mg by mouth every 12 hours. traMADoL (ULTRAM) 50 mg tablet Take 50 mg by mouth every 6 hours as needed for Pain. furosemide (LASIX) 40 mg tablet Take 40 mg by mouth daily. 11/23/2022 multivitamin tablet Take 1 Tablet by mouth daily. sacubitriL-valsar rivera (Entresto) 49-51 mg Tablet Take 1 Tablet by mouth 2 times daily. 60 Tablet 11 11/29/2022 albuterol sulfate HFA 90 mcg/actuation aerosol inhaler 10/05/2022 clopidogreL (PLAVIX) 75 mg Tablet Take 75 mg by mouth daily. 05/23/2022 ascorbic acid (vitamin C) 1,000 mg tablet (VITAMIN C) Take 1,000 mg by mouth daily. cyanocobalamin (vit B-12) 1,000 mcg tablet Take 1,000 mcg by mouth daily. ZINC ORAL Take 50 mg by mouth. apixaban (ELIQUIS) 5 mg tablet Take 1 Tablet (5 mg) by mouth 2 times daily. 60 Tablet 11 04/25/2022 nitroglycerin (NITROSTAT) 0.4 mg Tablet, Sublingual Place 1 Tablet (0.4 mg) under tongue every 5 minutes as needed for Chest Pain. 25 Tablet 3 03/31/2022 spironolactone (ALDACTONE) 25 mg tablet Take 12.5 mg by mouth daily. glyBURIDE 5 mg tablet (DIABETA) Take 5 mg by mouth daily with breakfast. 02/11/2022 metFORMIN (GLUCOPHAGE XR) 500 mg Extended Release 24 hour tablet TAKE 2 TABLETS BY MOUTH TWICE DAILY FOR DIABETES MELLITUS 02/11/2022 escitalopram oxalate (LEXAPRO) 10 mg tablet Take 10 mg by mouth daily. 12/03/2020 acetaminophen (TYLENOL) 500 mg Capsule Take by mouth every 4 hours as needed. 12/03/2020 sildenafiL (VIAGRA) 25 mg tablet Take 20 mg by mouth 1 time daily as needed for Erectile Dysfunction. 08/29/2019 cholecalciferol, Vitamin D3, 50 mcg (2,000 unit) Tablet Take 1,000 Units by mouth daily. 08/29/2019 omeprazole (PriLOSEC) 20 mg Capsule, Delayed Release(E.C.) Take 20 mg by mouth 2 times daily. 11/22/2018 simvastatin (ZOCOR) 20 mg tablet Take 1 Tablet (20 mg) by mouth late in the day. 30 Tablet 2 06/20/2016 carvediloL (COREG) 25 mg tablet Take 25 mg in the AM and 12.5 in the PM. 60 Tablet 3 06/20/2016 documented as of this encounter Progress Notes * Charo Conrad RN - 06/11/2025 2:32 PM CDT Patient given discharge instructions and states understanding. Copy of discharge instructions givento patient. Dwayne Werner will be discharged via ambulatory to home. Dwayne Werner is accompanied by spouse and will be transported via private vehicle. documented in this encounter H&P Notes * Ana Denis MD - 06/11/2025 12:29 PM CDT The H&P: Dwayne Werner is a 69 y.o. male who has a past medical history significant for VT s/p DC-ICD, persistent AF, hx DCCV 06/2022, 06/2024, s/p PVI Cryoablation 12/14/22, s/p PVI PFA 10/23/24, PVCs s/p RF ablation for PVCs, CAD s/p CABG, s/p PCI, ICM, ICM, chronic combined CHF, CAD, and ex-smoker. LVEF50% per echo 09/19/2019, grade 2 dd. NM MUGA scan 02/20/23 showed LVEF at 39%. Had persistent Afib andloaded on amiodarone s/p DCCV 06/2022- lasted only 2 days. Had PVI 12/2022. Did well for a while. Recurrence of palpitations and EM 08/2023 showed recurrence of Afib along with VT. NMST 08/2023 showed large fixed defect in RCA area and medium sized fixed defect in LAD territory w/ minimal brittani infarct ischemia. Underwent ICD in 10/2023. Again had persistent Afib 06/2024 and underwent Amiodarone loading and DCCV 07/03/2024; quickly had recurrence and was at 100% Afib burden at next ICD check 07/19/24. Now s/p PFA PVI 10/23/24, atypical flutter was seen but spontaneously converted and unable to reinduce. Has been on non-stopping eliquis and on amio. He is here for DCCV due to persistent symptomatic a flutter. Past Medical History: Diagnosis Date A-fib Anxiety Arthritis CAD (coronary artery disease) 5 stents vessel CABG 2006 CHF (congestive heart failure) Diabetes mellitus Dyspnea on exertion Dysrhythmia, cardiac GERD (gastroesophageal reflux disease) HTN (hypertension) Hyperlipidemia PVD (peripheral vascular disease) Family History Problem Relation Name Age of Onset Heart Disease Mother Heart Disease Brother Healthy Father Cancer Mother Social History Socioeconomic History Marital status: Spouse name: Barbie Tobacco Use Smoking status: Former Current packs/day: 0.00 Types: Cigarettes Quit date: 10/14/1984 Years since quittin.6 Smokeless tobacco: Former Quit date: 10/14/1984 Vaping Use Vaping status: Never Used Substance and Sexual Activity Alcohol use: No Alcohol/week: 0.0 standard drinks of alcohol Drug use: Never Health-Related Social Needs Transportation Needs: No Transportation Needs (12/19/2024) Transportation Needs Patient needs follow up regarding:: 1 Domestic Concerns: Not At Risk (10/22/2024) Feeling Safe Patient has indicated abuse: : No Housing Stability: Low Risk (10/22/2024) Housing Stability Patient needs follow up regarding:: No concerns Current Facility-Administered Medications: sodium chloride 0.9 % infusion, , IV, pre-proc continuous, Ana Denis MD, Last Rate: 30 mL/hr at 06/11/25 1042, New Bag at 06/11/25 1042 Allergies Allergen Reactions Penicillins Hives Propoxyphene N-Acetaminophen Shortness of Breath/Wheezing Review of System: Consitutional: no fever or chills Neurologic: No significant headache, recent stroke, or seizure. Eyes: No double visual ENT: No earache, nasal bleeding or signigicant sore throat Cardiac: as HPI Pulmonary: no cough off blood, or significant change in sputum production Gastrointestinal: No significant and prolonged diarrhea or constipation Genitourinary: No hematuria, dysuria. Skin: no significant rash Psychiatric: No clear depression Musculoskeletal: no significant change in myalgias or arthralgias PE: Pt is alert and oriented x 3, no apparent distress, VSS, afibril Heart: irregularly irregular, no sig. Murmur Lung: CTA, with minimal crakles ABD: Non-tender, Soft and +BS Leg: Trace edema The risks/benefits/options/consequence of the DCCV procedure explained to them again. They all understand and want to proceed and I agree. Physical exam also done and has no significant changes compared to the note of mine as above. Laboratory data is reviewed and not remarkable. CONSCIOUS SEDATION ASSESSMENT Patient: Dwayne Rojo Brad Appropriate history and physical on chart? yes Risks, benefits and options of conscious sedation discussed with patient. Previous anesthesia experiences reviewed. Informed consent obtained? yes Physical exam: Heart: No sig. change Lungs: No sig. change Airway: no sig. change ASA Classification: 1. A normal healthy patient 2. A patient with mild systemic disease 3. A patient with severe systemic disease. Limits activity, but not incapacitating. 4. A patient with incapacitating systemic disease that is a constant threat to life. 5. A moribund patient, not expected to survive 24 hours with or without the procedure. Choose ASA Class: 2 NPO status per policy: yes Ana Denis MD 06/11/2025 12:30 PM documented in this encounter Plan of Treatment Upcoming Encounters Date Type Department Care Team (Late st Contact Info) Description 06/30/2025 12:45 PM FEED HANDLER Office Visit [facility] [address] [place] [phone] Ana Denis MD [address] [place] [phone] 09/02/2025 8:15 AM FEED HANDLER Procedure visit [facility] [address] [place] [phone] Ana Denis MD [address] [place] [phone] 09/05/2025 10:40 AM FEED HANDLER Office Visit [facility] [address] [place] [phone] Ana Denis MD [address] [place] [phone] Yvrose Denis PA NO ADDRESS ON FILE documented as of this encounter Procedures Procedure Name Priority Date/Time Associated Diagnosis Comments CARDIOVERSION Routine 06/11/2025 12:52 PM CDT A-fib (CMS/HCC) DIFFERENTIAL, MANUAL Routine 06/11/2025 10:25 AM CDT CBC WITH DIFFERENTIAL Routine 06/11/2025 10:25 AM CDT PROTIME-INR Routine 06/11/2025 10:25 AM CDT BASIC METABOLIC PANEL Routine 06/11/2025 10:25 AM CDT EKG 12-LEAD Routine 06/11/2025 10:21 AM CDT documented in this encounter Results * CARDIOVERSION (06/11/2025 12:52 PM CDT) Narrative [facility] - 06/11/2025 1:02 PM CDT Title of procedure: DCCV Reason for the procedure: Atrial fibrillation/flutter Description of the procedure: After informed consent obtained. Patient sent to the pathology laboratory aide in a post-absorptive state. Conscious sedation was achieved with 3 mg versed and 75 microgram Fentanyl. DCCV was proceed with 300 joules. One shock converted patient into Sinus Rhythm. Patient's hemodynamics stable. No complications noticed. Follow up: we reprogrammed the ICD to MVP 70-120 bpm to suppress pac. Patient will be discharged after waking up and able to ambulating. Ana Denis MD CUP EP ORDERABLES Final Resul t [facility] [id number] [address] [facility] [address] [place] [address], [place] [phone] * MANUAL DIFFERENTIAL (06/11/2025 10:25 AM CDT) PLATELET EST. Adequate 06/11/2025 11:09 AM CDT [facility] ANISOCYTOSIS 2+ /hpf 06/11/2025 11:09 AM CDT [facility] POIKILOCYTES 2+ /hpf 06/11/2025 11:09 AM CDT [facility] MICROCYTES 2+ /hpf 06/11/2025 11:09 AM CDT [facility] POLYCHROMASIA 1+ /hpf 06/11/2025 11:09 AM CDT [facility] HYPOCHROMIA 2+ /hpf 06/11/2025 11:09 AM CDT [facility] TARGET CELLS 1+ /hpf 06/11/2025 11:09 AM T [facility] SCHISTOCYTES 1+ /hpf 06/11/2025 11:09 AM T [facility] TEAR DROP CELLS 1+ /hpf 11:09 AM T [facility] Blood Venipuncture / Unknown 06/11/2025 10:25 AM CDT 06/11/2025 10:29 AM CDT Ana Denis MD HEMATOLOGY ORDERABLES COM Fin al Result [facility] CLIA # [id number] [facility] [address] [place] [address] * (ABNORMAL) BASIC METABOLIC PANEL (06/11/2025 10:25 AM CDT) SODIUM 135(L) 136 - 145 mmol/L 06/11/2025 11:03 AM [facility] POTASSIUM 3.8 3.5 - 5.1 mmol/L 06/11/2025 11:03 AM [facility] CHLORIDE 98 98 - 107 mmol/L 06/11/2025 11:03 AM [facility] CO2 26 22 - 29 mmol/L 06/11/2025 11:03 AM [facility] CALCIUM 8.4(L) 8.8 - 10.2 mg/dL 06/11/2025 11:03 AM [facility] BUN 19 8 - 23 mg/dL 06/11/2025 11:03 AM [facility] CREATININE 1.23(H) 0.67 - 1.17 mg/dL 06/11/2025 11:03 AM [facility] GLUCOSE 178(H) 74 - 99 mg/dL 06/11/2025 11:03 AM [facility] GFR >60 >=60 mL/min/1. 73 sq meter 06/11/2025 11:03 AM [facility] Comment:eGFR calculated with 2020 CKD-EPI equation. Vegetarian diet, extremely high or low muscle mass, and may affect results. Cystatin C with Glomerular Filtration Rate is a suitable alternative for these patients. ANION GAP 11 9 - 20 mmol/L 06/11/2025 11:03 AM [facility] Blood Venipuncture / Unknown 06/11/2025 10:25 AM CDT 06/11/2025 10:29 AM CDT us Ana Denis MD CHEMISTRY ORDERABLES Final Re sult Performing Organization Address [facility] Co de Phone Number [facility] CLIA # [id number] [address] [address] * (ABNORMAL) PROTIME-INR (06/11/2025 10:25 AM CDT) Pathologist [facility] PROTIME 20.5(H) 12.7 - 14.9 Seconds 06/11/2025 10:45 AM CDT [facility] [employer] [facility] INR 1.7(H) 0.8 - 1.2 06/11/2025 10:45 AM CDT [facility] Blood Venipuncture / Unknown 06/11/2025 10:25 AM CDT 06/11/2025 10:29 AM CDT Narrative [facility] [employer] [facility] - 06/11/2025 10:45 AM CDT Expected Values for INR: DVT/PE Goal INR 2.5; range 2.0 - 3.0 Valve Replacement Tissue Goal INR 2.5; range 2.0 - 3.0 Valve Replacement Mechanical Goal INR 3.0; range 2.5 - 3.5 POST-WA Goal INR 2.5; range 2.0 - 3.0 or Goal INR 3.0; range 2.5 - 3.5 Atrial Fibrillation Goal INR 2.5; range 2.0 - 3.0 Ischemic Stroke Goal INR 2.5; range 2.0 - 3.0 us Ana Denis MD HEMATOLOGY ORDERABLES Final R esult Performing Organization Address [facility]/ZIP Co de Phone Number [facility] CLIA # [id number] [facility] [id number] * (ABNORMAL) CBC WITH DIFFERENTIAL (06/11/2025 10:25 AM CDT) WBC 5.8 4.8 - 10.8 K/uL 06/11/2025 11:09 AM [facility] [employer] [facility] RBC 4.82 4.60 - 6.20 M/uL 06/11/2025 11:09 AM [facility] [employer] [facility] HEMOGLOBIN 8.4(L) 14.0 - 18.0 g/dL 06/11/2025 11:09 AM [facility] [employer] [facility] HEMATOCRIT 31.1(L) 41.0 - 53.0 % 06/11/2025 11:09 AM [facility] [employer] [facility] MCV 64.5(L) 84.0 - 103.0 fL 06/11/2025 11:09 AM [facility] [employer] [facility] MCH 17.4(L) 27.0 - 34.0 pg 06/11/2025 11:09 AM [facility] [employer] [facility] MCHC 27.0(L) 30.0 - 35.0 g/dL 06/11/2025 11:09 AM [facility] [employer] [facility] PLATELETS 288 140 - 440 K/uL 06/11/2025 11:09 AM [facility] [employer] [facility] MPV 9.2 8.9 - 12.8 fL 06/11/2025 11:09 AM [facility] [employer] [facility] RDW 19.9(H) 11.0 - 14.5 % 06/11/2025 11:09 AM [facility] [employer] [facility] RDW-STDEV 44.9 37.0 - 54.0 fL 06/11/2025 11:09 AM [facility] [employer] [facility] NEUTROPHILS 69 42 - 75 % 06/11/2025 11:09 AM [facility] [employer] Technologies [facility] LYMPHOCYTES 11(L) 24 - 44 % 06/11/2025 11:09 AM [facility] [employer] [facility] MONOCYTES 14(H) 2 - 10 % 06/11/2025 11:09 AM [facility] [employer] [facility] EOSINOPHILS 4 0 - 7 % 06/11/2025 11:09 AM [facility] [employer] [facility] BASOPHILS 1 0 - 1 % 06/11/2025 11:09 AM [facility] [employer] [facility] IMMATURE GRANULOCYTES 0 0 - 2 % 06/11/2025 11:09 AM CDT [facility] NEUTROPHIL ABSOLUTE 3.99 2.00 - 8.00 K/uL 06/11/2025 11:09 AM CDT [facility] LYMPHOCYTE ABSOLUTE 0.64(L) 1.20 - 4.00 K/uL 06/11/2025 11:09 AM CDT [facility] MONOCYTE ABSOLUTE 0.84(H) 0.10 - 0.60 K/uL 06/11/2025 11:09 AM CDT [facility] EOSINOPHIL ABSOLUTE 0.25 0.00 - 0.70 K/uL 06/11/2025 11:09 AM CDT [facility] BASOPHILS ABSOLUTE 0.08 0.00 - 0.20 K/uL 06/11/2025 11:09 AM [facility] IMMATURE GRANULOCYTES ABSOLUTE 0.02 0.00 - 0.10 K/uL 06/11/2025 11:09 AM T [facility] SMEAR REVIEWED: SR - See Smear Review on Manual Diff. 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: [id number] : 1955 Requested By: Order Number: [id number] Reading MD: Breana Garcia Measurements Intervals [place] Rate: 68 P: 0 [place]: 0 QRS: 76 QRSD: 118 T: 196 QT: 440 QTc: 467 Interpretive Statements Atrial fibrillation with a competing junctional pacemaker Incomplete left bundle branch block Nonspecific ST and T wave abnormality Abnormal ECG Electronically Signed On 06-11-2025 17:44:27 CDT by Breana Garcia Procedure Note Breana Garcia, DO - 06/11/[address] [address] Test Date: 2025-06-11 Pat Name: DWAYNE WERNER Department: 12 Room: [facility] Re Gender: Male Airfreight Loading Supervisor: [id number] : 1955 Requested By: Order Number: [id number] Reading MD: Breana Garcia Measurements Intervals [place] Rate: 68 P: 0 [place]: 0 QRS: 76 QRSD: 118 T: 196 QT: 440 QTc: 467 Interpretive Statements Atrial fibrillation with a competing junctional pacemaker Incomplete left bundle branch block Nonspecific ST and T wave abnormality Abnormal ECG Electronically Signed On 06-11-2025 17:44:27 CDT by Breana Garcia us Ana Denis MD ECG ORDERABLES Final Result INTERFACE SYSTEM Refer to clinic/hospital department documented in this encounter Visit Diagnoses Diagnosis A-fib (CMS/HCC)- Primary Atrial fibrillation A-fib (CMS/HCC) Atrial fibrillation Persistent atrial fibrillation (CMS/HCC) Atrial fibrillation A-fib (CMS/HCC) Atrial fibrillation documented in this encounter Admitting Diagnoses Diagnosis A-fib (CMS/HCC) Atrial fibrillation documented in this encounter Administered Medications Inactive Administered Medications - up to 3 most recent administrations Medication Order MAR Action Action Date Dose Rate Site sodium chloride 0.9 % infusion IV, at 30 mL/hr, PRE-PROCEDURE CONTINUOUS, Starting on Mon06/11/25 at 1000, Until Mon06/11/25 at 1633, Routine, Pre-Procedure (Invasive Cardiology)Indications:Persiste nt atrial fibrillation (CMS/HCC) New Bag 06/11/2025 10:42 AM CDT 30 mL/hr documented in this encounter Active and Recently Administered Medications Times are shown in CDT. Continuous Medication Order 06/09/2025 06/10/2025 06/11/2025 sodium chloride 0.9 % infusion IV, at 30 mL/hr, PRE-PROCEDURE CONTINUOUS, Starting on Mon06/11/25 at 1000, Until Mon06/11/25 at 1633, Routine, Pre-Procedure (Invasive Cardiology) 1042 (New Bag - Prov ider: Charo Conrad RN)1633 (Due: Order Ending - Provider: PROVIDER, DISCHARGE PATIENT - Comment: [Order ends at this time. Document the following action when infusion is complete: Stopped]) PRN Medication Order 06/09/2025 06/10/2025 06/11/2025 fentaNYL (PF) (SUBLIMAZE) 50 mcg/mL injection (CANCELED) ONE TIME PRN, Starting on Mon06/11/25 at 1246, Until Mon06/11/25 at 1253, Routine, Intra-Procedure (Invasive Cardiology) 1246 (Given - Provid er: Eileen Lopez RN) midazolam (VERSED) injection (CANCELED) ONE TIME PRN, Starting on Mon06/11/25 at 1246, Until Mon06/11/25 at 1253, Routine, Intra-Procedure (Invasive Cardiology) 1246 (Given - Provid er: Eileen Lopez RN) documented in this encounter Care Teams Chinese Medicine Practitioner Relationship Specialty Start Date End Date Teodoro Jon DO [address] [place] [phone] PCP - General 11/28/20 documented as of this encounter
--- OUTSIDE RECORDS SUMMARY | 2025-06-11 11:29 | XMS_ITS | Encounter Summary ---
Author Organization [facility] Address [address] [place] [address] Care Team Providers Care Punch Molder Name Role Phone Teodoro Jon DO Primary Care Provider [phone] Reason for Visit * Auth/Cert (Routine) Specialty Diagnoses / Procedures Referred By Contac t Referred To Contact Cardiology Diagnoses A-fib (CMS/HCC) Procedures CA CARDIOVERSION ELECTIVE ARRHYTHMIA EXTERNAL Cardioversion Ana Denis MD [address] [facility] [address] [place] [phone] Phone: tel: fax: [facility] Cardiac Technical Staff Assistant [address] [place] [address] Phone: tel: fax: Referral ID Status Reason Start Date Expiration Date Visits Re quested Visits Authorized [id number] 1 1 Encounter Details Date Type Department Care Team (Late st Contact Info) Description 06/11/2025 12:29 PM CDT - 06/11/2025 12:56 PM CDT Surgery [facility] Cardiac Technical Staff Assistant [address] [place] [phone] Ana Denis MD [address] [facility] [address] [place] [phone] Cardioversion Surgery Details Date/Time Status Location OR Service Patient Class Case Class Case Type Trauma Case? 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 Do not take any vitamins, aphk-ndo-oulakrp medicines, or herbal products without talking to [...] and cola drinks) and other stimulants (decongestants, iarw-gxf-botrmgn cold and flu medicines, and illegal substances) [...] irregular heartbeat. After you call 911, the poacher wringer operator may tell you to chew 1 [...] Where can you learn more? Go to [email or web address].net in the Health Information search box. Enter S885 in the search box to learn more about Cardioversion: After Your Visit. Last Revised: January 27, 2011 ?? [id number] Clifford Thames, [employer]. Care instructions adapted under license by [employer]. [facility] disclaims any warranty or liability for your use of this information. This information is not intended to represent the ethical and baptist beliefs of [facility]. This care instruction is for use with your licensed healthcare professional. If you have questions about a medical condition or this instruction, always ask your healthcare professional. Clifford Thames[employer] disclaims any warranty or liability for your [...] not remarkable. CONSCIOUS SEDATION ASSESSMENT Patient: Dwayne Werner Appropriate history and physical on chart? yes [...] Upcoming Encounters Date Type Department Care Team (Malika Contact Info) Description 06/30/2025 12:45 PM HAND ROUTER OPERATOR Office Visit [facility] [address] [place] [phone] Ana Denis MD [address] [place] [phone] 09/02/2025 8:15 AM HAND ROUTER OPERATOR Procedure visit [facility] [address] [place] [phone] Ana Denis MD [address] [place] [phone] 09/05/2025 10:40 AM HAND ROUTER OPERATOR Office Visit [facility] [address] [place] [phone] Ana Denis MD [address] [place] [phone] Yvrose Denis PA NO ADDRESS ON [...] * CARDIOVERSION (06/11/2025 12:52 PM CDT) Narrative [facility] - 06/11/2025 1:02 PM CDT Title of procedure: DCCV Reason for the procedure: Atrial fibrillation/flutter Description of the procedure: After informed consent obtained. Patient sent to the manager labor delivery in a post-absorptive state. Conscious sedation was achieved with 3 mg versed and 75 microgram Fentanyl. DCCV was proceed with 300 joules. One shock converted patient into Sinus Rhythm. Patient's hemodynamics stable. No complications noticed. Follow up: we reprogrammed the ICD to MVP 70-120 bpm to suppress pac. Patient will be discharged after waking up and able to ambulating. us Ana Denis MD CUP EP ORDERABLES Final Resul t [facility] [id number] [address] [facility] [address] [place] [address], [place] [phone] * MANUAL DIFFERENTIAL (06/11/2025 10:25 AM CDT) PLATELET EST. Adequate 06/11/2025 11:09 AM T [facility] [place] ANISOCYTOSIS 2+ /hpf 06/11/2025 11:09 AM T [facility] [place] POIKILOCYTES 2+ /hpf 06/11/2025 11:09 AM [facility] [place] MICROCYTES 2+ /hpf 06/11/2025 11:09 AM T [facility] [place] POLYCHROMASIA 1+ /hpf 06/11/2025 11:09 AM T [facility] [place] HYPOCHROMIA 2+ /hpf 06/11/2025 11:09 AM T [facility] [place] TARGET CELLS 1+ /hpf 06/11/2025 11:09 AM T [facility] [place] SCHISTOCYTES 1+ /hpf 06/11/2025 11:09 AM T [facility] [place] TEAR DROP CELLS 1+ /hpf 11:09 AM [facility] Blood Venipuncture / Unknown 06/11/2025 10:25 AM CDT 06/11/2025 10:29 AM CDT us Ana Denis MD HEMATOLOGY ORDERABLES COM Fin al Result [facility] CLIA # [id number] [address] [address] [place] [address] * (ABNORMAL) BASIC METABOLIC PANEL (06/11/2025 10:25 AM CDT) SODIUM 135(L) 136 - 145 mmol/L 06/11/2025 11:03 AM [facility] POTASSIUM 3.8 3.5 - 5.1 mmol/L 06/11/2025 11:03 AM [facility] CHLORIDE 98 98 - 107 mmol/L 06/11/2025 11:03 AM [facility] CO2 26 22 - 29 mmol/L 06/11/2025 11:03 AM [facility] CALCIUM 8.4(L) 8.8 - 10.2 mg/dL 06/11/2025 11:03 AM [facility] BUN 19 8 - 23 mg/dL 06/11/2025 11:03 AM [facility] CREATININE 1.23(H) 0.67 - 1.17 mg/dL 06/11/2025 11:03 AM [facility] GLUCOSE 178(H) 74 - 99 mg/dL 06/11/2025 11:03 AM [facility] GFR >60 >=60 mL/min/1. 73 sq meter 06/11/2025 11:03 AM [facility] Comment:eGFR calculated with 2020 CKD-EPI equation. Vegetarian diet, extremely high or low muscle mass, and may affect results. Cystatin C with Glomerular Filtration Rate is a suitable alternative for these patients. ANION GAP 11 9 - 20 mmol/L 06/11/2025 11:03 AM CDT [facility] [employer] [facility] Blood Venipuncture / Unknown 06/11/2025 10:25 AM CDT 06/11/2025 10:29 AM CDT us Ana Denis MD CHEMISTRY ORDERABLES Final Re sult Performing Organization Address [facility] Co de Phone Number [facility] CLIA # [id number] [address] [address] [place] [address] * (ABNORMAL) PROTIME-INR (06/11/2025 10:25 AM CDT) PROTIME 20.5(H) 12.7 - 14.9 Seconds 06/11/2025 10:45 AM CDT [facility] INR 1.7(H) 0.8 - 1.2 06/11/2025 10:45 AM CDT [facility] Blood Venipuncture / Unknown 06/11/2025 10:25 AM CDT 06/11/2025 10:29 AM CDT Narrative [facility] [employer] [facility] - 06/11/2025 10:45 AM CDT Expected Values for INR: DVT/PE Goal INR 2.5; range 2.0 - 3.0 Valve Replacement Tissue Goal INR 2.5; range 2.0 - 3.0 Valve Replacement Mechanical Goal INR 3.0; range 2.5 - 3.5 POST-WI Goal INR 2.5; range 2.0 - 3.0 or Goal INR 3.0; range 2.5 - 3.5 Atrial Fibrillation Goal INR 2.5; range 2.0 - 3.0 Ischemic Stroke Goal INR 2.5; range 2.0 - 3.0 us Ana Denis MD HEMATOLOGY ORDERABLES Final R esult Performing Organization Address [facility]/ZIP Co de Phone Number [facility] [employer] [facility] CLIA # [id number] [address] [address] [place] [address] * (ABNORMAL) CBC WITH DIFFERENTIAL (06/11/2025 10:25 AM CD) [facility] WBC 5.8 4.8 - 10.8 K/uL 06/11/2025 11:09 AM [facility] RBC 4.82 4.60 - 6.20 M/uL 06/11/2025 11:09 AM [facility] HEMOGLOBIN 8.4(L) 14.0 - 18.0 g/dL 06/11/2025 11:09 AM [facility] HEMATOCRIT 31.1(L) 41.0 - 53.0 % 06/11/2025 11:09 AM [facility] [employer] [facility] MCV 64.5(L) 84.0 - 103.0 fL 06/11/2025 11:09 AM [facility] MCH 17.4(L) 27.0 - 34.0 pg 06/11/2025 11:09 AM [facility] MCHC 27.0(L) 30.0 - 35.0 g/dL 06/11/2025 11:09 AM [facility] [employer] [facility] PLATELETS 288 140 - 440 K/uL 06/11/2025 11:09 AM [facility] [employer] [facility] MPV 9.2 8.9 - 12.8 fL 06/11/2025 11:09 AM [facility] [employer] [facility] RDW 19.9(H) 11.0 - 14.5 % 06/11/2025 11:09 AM [facility] [employer] [facility] RDW-STDEV 44.9 37.0 - 54.0 fL 06/11/2025 11:09 AM [facility] [employer] [facility] NEUTROPHILS 69 42 - 75 % 06/11/2025 11:09 AM [facility] [employer] [facility] LYMPHOCYTES 11(L) 24 - 44 % 06/11/2025 11:09 AM [facility] [employer] [facility] MONOCYTES 14(H) 2 - 10 % 06/11/2025 11:09 AM CDT [facility] EOSINOPHILS 4 0 - 7 % 06/11/2025 11:09 AM CDT [facility] BASOPHILS 1 0 - 1 % 06/11/2025 11:09 AM CDT [facility] IMMATURE GRANULOCYTES 0 0 - 2 % 06/11/2025 11:09 AM CDT [facility] NEUTROPHIL ABSOLUTE 3.99 2.00 - 8.00 K/uL 06/11/2025 11:09 AM CDT [facility] LYMPHOCYTE ABSOLUTE 0.64(L) 1.20 - 4.00 K/uL 06/11/2025 11:09 AM CDT [facility] MONOCYTE ABSOLUTE 0.84(H) 0.10 - 0.60 K/uL 06/11/2025 11:09 AM CDT [facility] EOSINOPHIL ABSOLUTE 0.25 0.00 - 0.70 K/uL 06/11/2025 11:09 AM T [facility] BASOPHILS ABSOLUTE 0.08 0.00 - 0.20 K/uL 06/11/2025 11:09 AM CDT [facility] IMMATURE GRANULOCYTES ABSOLUTE 0.02 0.00 - 0.10 K/uL 06/11/2025 11:09 AM T [facility] SMEAR REVIEWED: SR - See Smear Review on Manual Diff. 06/11/2025 11:09 AM T [facility] Blood Venipuncture / Unknown 06/11/2025 10:25 AM CDT 06/11/2025 10:29 AM CDT us Ana Denis MD HEMATOLOGY ORDERABLES Final R esult [facility] CLIA # [id number] [address] [place] [address] [place] [address] * EKG 12-LEAD (06/11/2025 10:21 AM CDT) 06/11/2025 10:2 1 AM CDT Narrative INTERFACE SYSTEM - 06/11/2025 5:[address] PM [address]T [address] [address] Test Date: 2025-06-11 Pat Name: DWAYNE WERNER Department: 12 Room: [place] [address] Gender: Male Project Developer: [id number] : 1955 Requested By: Order Number: [id number] Reading MD: Breana Garcia Measurements Intervals [place] Rate: 68 P: 0 [place]: 0 QRS: 76 QRSD: 118 T: 196 QT: 440 QTc: 467 Interpretive Statements Atrial fibrillation with a competing junctional pacemaker Incomplete left bundle branch block Nonspecific ST and T wave abnormality Abnormal ECG Electronically Signed On 06-11-2025 17:44:27 CDT by Breana Garcai Procedure Note Breana Garcia DO - 06/11/[address] [address] Test Date: 2025-06-11 Pat Name: DWAYNE WERNER Department: 12 Room: [place] [address] Gender: Male Project Developer: [id number] : 1955 Requested By: Order Number: [id number] [place] LEDESMA: Breana Garcia Measurements Intervals [place] Rate: 68 P: 0 [place]: 0 QRS: 76 QRSD: 118 T: 196 [...] MAR Action Action Date Dose Rate Site fentaNYL (PF) (SUBLIMAZE) 50 mcg/mL injection ONE TIME PRN, Starting on Mon06/11/25 at 1246, Until Mon06/11/25 at 1253, Routine, Intra-Procedure (Invasive Cardiology) Given 06/11/2025 12:46 PM CDT 50 mcg midazolam (VERSED) injection ONE TIME PRN, Starting on Mon06/11/25 at 1246, Until Mon06/11/25 at 1253, Routine, Intra-Procedure (Invasive Cardiology) Given 06/11/2025 12:46 PM CDT 2 mg sodium chloride 0.9 % infusion IV, at 30 mL/hr, PRE-PROCEDURE CONTINUOUS, Starting on Mon06/11/25 at 1000, Until Mon06/11/25 at 1633, Routine, Pre-Procedure (Invasive Cardiology)Indications:Persist ent atrial fibrillation (CMS/HCC) New Bag 06/11/2025 10:42 [...] RN) documented in this encounter Care Teams Punch Molder Relationship Specialty Start Date End Date Teodoro Jon DO [address] [place] [phone] PCP - General 11/28/20 documented as of this encounter
[2025-06-16 20:26] VITALS: BP 117/57; PULSE 90; RESP 18; TEMP 36.6; O2SAT 94; BMI 34.9
--- OUTSIDE RECORDS SUMMARY | 2025-06-16 20:31 | XMS_ITS | Clinical Summary ---
Author Organization [facility] [employer] Address [address] [place] [address] Care Team Providers Care Customer Support Professional Name Role Phone Teodoro Jon DO Primary Care Provider [phone] Allergies Active Allergy Reactions Criticality Noted Date [...] on file Legal Sex Male 5:[address] CLERK Gender Identity Not on file Sexual Orientation [...] 36.2 C (97.2 F) 09/03/2020 8:[address] CLERK Respiratory Rate 16 09/03/2020 8:[address] CLERK Oxygen Saturation 93% 09/03/2020 8:[address] CLERK Inhaled Oxygen Concentration - - Weight 118.4 [...] of 2 - PCV) 09/14/19 06 10/30/2002 RSV VACCINE (60+ or ) (1 - Risk 50-74 years 1-dose series) 2005 ZOSTER VACCINE (1 of 2) 2005 INFLUENZA VACCINE (#1) 2025 06/14/2012 Insurance MEDICARE PART A AND B AAR SUPP RX [facility] Medicare Part D Advance Directives For more information, please contact: [phone] * Full Code (Latest Code Status on [...] 4:41 PM 05/02/2013 12:04 PM Care Teams Customer Support Professional Relationship Specialty Start Date End Date Teodoro Jon DO [facility] [place] [phone] PCP - General Family Practice 03/19/20
--- OUTSIDE RECORDS SUMMARY | 2025-06-16 20:31 | XMS_ITS | Encounter Summary ---
Author Organization [employer] [facility] Address [address] [place] [address] Care Team Providers Care Long Chain Quiller Tender Name Role Phone Teodoro Jon DO Primary Care Provider [phone] Encounter Details Date Type Department Care Team (Latest Contact Info) Description 11/26/2002 Outpatient Historical [employer] Audie Rosales Jr., MD [address] [place] [phone] Pure hypercholesterolem (Primary Dx) Social History Tobacco Use Types Packs/Day Years Used Date Smoking Tobacco: Never Assessed Sex and Gender Information Value Date Recorded Sex Assigned at Not on file 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
--- OUTSIDE RECORDS SUMMARY | 2025-06-16 20:31 | XMS_ITS | Encounter Summary ---
Author Organization [facility] Address [address] [place] [address] Care Team Providers Care Industrial Relations Representative Name Role Phone Teodoro Jon DO Primary Care Provider [phone] Reason for Referral * Outpatient Services (Routine) - Closed Specialty Diagnoses / Procedures Referred By Contac t Referred To Contact Diagnoses PVC's (premature ventricular contractions) Procedures CL STUDY POSS ABLATION Ana Denis MD [address] [place] [address] Phone: tel: fax: Referral ID Status Reason Start Date Expiration Date Visits Re quested Visits Authorized [id number] Closed 04/08/2013 05/09/2014 1 1 Encounter Details Date Type Department Care Team (Late st Contact Info) Description 04/08/2013 Ancillary Orders [facility] Cardiology- [place] [address] [place] [address] Ana Denis MD [address] [place] [address] PVC's (premature ventricular contractions) (Primary Dx) [...] on file 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 PRE-PROCEDURE DIAGNOSES: 1. Symptomatic refractory premature ventricular contractions. 2. Hypertension. 3. Fuc-jmiefyk-mgpmrbgew diabetes. 4. Hyperlipidemia. 5. Myocardial infarction and history of bypass surgery. POST-PROCEDURE DIAGNOSES: 1. Symptomatic refractory premature ventricular contractions. 2. Hypertension. 3. Wlc-bvrzlrh-fvbrwtqzu diabetes. 4. Hyperlipidemia. 5. Myocardial infarction and history of bypass surgery. 6. Status post PVC ablation, PVC at left inferior septal area LV. MATERIALS USED: 1. 5-, 6-, 5-Panamanian sheath to the left femoral veins for [...] electrically record His bundle, RV, and HRA. 7-Panamanian sheath to the right femoral artery, later [...] before ablation as following: QTC is 432, ME 206, HR is 105, AH is 122, HV is 60, cycle length 725 milliseconds. Atrial decremental pacing post ablation 1:1 until 400 milliseconds, and there is no VA conduction post ablation with ventricular pacing which was done. AV jennifer ERP reached at 600/340 post ablation, and then 1 mcg/min of isoproterenol was infused at steady state. We repeated EP study, baseline as following: ME is 185, QRS is 130, QT is [...] femoral vein changed to the short sheath 8-Panamanian. FINAL SUMMARY: 1. Mildly prolonged HV. 2. PVC originally from the LV inferior septal area which was ablated. Post ablation, no more PVC seen. No other significant arrhythmia can be identified. SCL/jaw - transcribed in Epic - Procedure Note Ana Denis MD - 05/03/2013 TYPE OF PROCEDURE: PVC ablation. PRE-PROCEDURE DIAGNOSES: 1. Symptomatic refractory premature ventricular contractions. 2. Hypertension. 3. Kuk-klqywpr-grljpjgye diabetes. 4. Hyperlipidemia. 5. Myocardial infarction and history of bypass surgery. POST-PROCEDURE DIAGNOSES: 1. Symptomatic refractory premature ventricular contractions. 2. Hypertension. 3. Fkf-mqopvqv-frkxqvbbh diabetes. 4. Hyperlipidemia. 5. Myocardial infarction and history of bypass surgery. 6. Status post PVC ablation, PVC at left inferior septal area LV. MATERIALS USED: 1. 5-, 6-, 5-Panamanian sheath to the left femoral veins for [...] can electrically record His bundle, RV,and HRA. 7-Panamanian sheath to the right femoral artery, later [...] Baseline beforeablation as following: QTC is 432, ME 206, HR is 105, AH is 122, HV is60, cycle length 725 milliseconds. Atrial decremental pacing postablation 1:1 until 400 milliseconds, and there is no VA conduction postablation with ventricular pacing which was done. AV jennifer ERP reached at600/340 post ablation, and then 1 mcg/min of isoproterenol was infused atsteady state. We repeated EP study, baseline as following: ME is 185,QRS is 130, QT is 415, [...] right femoral vein changed to the short sheath8-Panamanian. FINAL SUMMARY: 1. Mildly prolonged HV. 2. PVC originally from the LV inferior septal area which was ablated.Post ablation, no more PVC seen. No other significant arrhythmia can beidentified. SCL/jaw - transcribed in My[employer] - us Ana Denis MD FLUOROSCOPY ORDERABLES Final Result [facility] documented in this encounter Visit Diagnoses Diagnosis PVC's (premature ventricular contractions)- Primary Other premature beats Frequent PVCs- Primary Other premature beats PVC's (premature ventricular contractions) Other premature beats documented in this encounter Care Teams Industrial Relations Representative Relationship Specialty Start Date End Date Teodoro Jon DO [address] [place] [id number] PCP - General Family Practice 03/19/20 documented as of this encounter
--- OUTSIDE RECORDS SUMMARY | 2025-06-16 20:31 | XMS_ITS | Encounter Summary ---
Author Organization [employer] Address [address] [place] [address] Care Team Providers Care Bath Mixer Name Role Phone Teodoro Jon DO Primary Care Provider [phone] Encounter Details Date Type Department Care Team (Latest Contact Info) Description 04/30/2003 Outpatient Historical [facility] Audie Rosales Jr., MD [address] [place] [address] HYPERTENSION NOS (Primary Dx); Pure hypercholesterolem; CRAMP IN LIMB Social History Tobacco Use Types Packs/Day Years Used Date Smoking Tobacco: Never Assessed Sex and Gender Information Value Date Recorded Sex Assigned at Not on file 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
--- OUTSIDE RECORDS SUMMARY | 2025-06-16 20:31 | XMS_ITS | Patient Health Record ---
Author Organization [facility] Address [address] [place] [address] Care Team Providers Care Dipper Operator Name Role Phone Audie Rosales Unavailable [phone] Allergies Allergen (clinical drug ingredient) Drug/Non Drug [...] End Date Status NITROGLYCERIN PATCH 0.6 mg/hr Patch 24 Hour Apply 1 patch topically as directed once daily Transdermal; Duration: 30 *please review for potential update for e-prescription and drug interaction check* Nitroglycerin 0.6mg Transdermal Patch Apply 1 patch topically as directed once daily 01/30/2014 Active metFORMIN HCl ER 500 MG Tablet Extended Release 24 Hour Take 4 tab(s) by mouth q supper Oral; Duration: 30 Metformin HCl (Metformin HCl) 500mg Tablets, Extended Release Take 4 tab(s) by mouth q supper #180 ([place]) tablet(s) 12/23/2013 Active Furosemide 20 MG Tablet Take 1 tablet(s) by mouth daily in am Oral; Duration: 30 Furosemide 20mg Tablets Take 1 tablet(s) by mouth daily in am #30 (Thirty) tablet(s) 01/30/2014 Active Spironolactone 25 MG Tablet Take 1 tablet(s) by mouth daily Oral; Duration: 30 Spironolactone 25mg Tablet Take 1 tablet(s) by mouth daily #30 (Thirty) tablet(s) 01/30/2014 Active Isosorbide Mononitrate ER 60 MG Tablet Extended Release 24 Hour Take 1 tablet(s) by mouth qam Oral; Duration: 30 Isosorbide Mononitrate 60mg Tablets, Extended Release Take 1 tablet(s) by mouth qam #30 (Thirty) tablet(s) 01/30/2014 Active Aspirin 81 MG Tablet Chewable 1 tab(s) po qd Oral; Duration: 30 Aspirin (ASA) 81mg Chewable Tablet 1 tab(s) po qd 02/22/2013 Active Nitroglycerin 0.6 mg Tablet Sublingual Dissolve 1 tablet(s) under the tongue may repeat every 5 minutes. Maximum of 3 doses in 15 minutes Sublingual; Duration: 30 Nitroglycerin 0.6mg Tablets, Sublingual Dissolve 1 tablet(s) under the tongue may repeat every 5 minutes. Maximum of 3 doses in 15 minutes #4 (Four) 100 tablet bottle 01/11/2013 Active Tradjenta 5 MG Tablet Take 1 tablet(s) by mouth daily Oral; Duration: 30 Tradjenta 5mg Tablet Take 1 tablet(s) by mouth daily Quantity: 0 12/23/2013 Active Crestor 10 MG Tablet Take 1 tablet(s) by mouth daily Oral; Duration: 30 Crestor (Rosuvastatin) 10mg Tablet Take 1 tablet(s) by mouth daily QS for 90 day(s) 05/02/2012 Active Cozaar 50 MG Tablet Take 2 tablet(s) by mouth daily Oral; Duration: 30 Cozaar (Losartan) 50mg Tablet Take 2 tablet(s) by mouth daily #60 (Sixty) tablet(s) 11/15/2013 Active Coreg 25 mg Tablet Take 1 tablet(s) by mouth bid Oral; Duration: 30 Coreg (Carvedilol) 25mg Tablet Take 1 [...] Pneumococcal polysaccharide PPV23 IM Intramuscular 07/23/2010 Administered Social History Social History Additional Details Category Social Info Options Details zzMigrated Social History Migrated Social History Advance Directive: Current and Verified Supported by Advance Directive Other Withhold Organ Donation: Patient Consents to Organ Donation Denied Portal User Patient declined portal account 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 Problems Problem Type SNOMED Code ICD Code Onset Dates Problem Status W/U Status Risk Notes Problem Angina (983747588) Other and unspecified angina pectoris (413.9) Active confirmed Mariano-10 [id number]- Problem Vitamin B-complex deficiency (856742755) Deficiency of B-complex vitamins (266.2) 2013 Active confirmed Mariano-98 [id number]- Problem Lumbosacral spondylosis without myelopathy (51005588) 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 Active confirmed Mariano-98 5911- Problem Congestive heart failure (98785276) Congestive heart failure (428.0) 2014 Active confirmed Mariano-98 5911- Problem Coronary artery disease (35351303) CAD (414.01) 2012 Active confirmed Mariano-98 5911- Problem Erectile dysfunc tion secondary to diabetes (607.84) 2018 Active confirmed Mariano-98 5911- Problem Diabetes mellitus type 2 (disorder) (89235331) Type II diabetes (250.00) 2014 Active confirmed Mariano-98 5911- Problem Diabetes mellitus type 2 (disorder) (00871340) Type 2 diabetes (250.00) 2010 Active confirmed Mariano-98 5911- Problem Hyperparathyroidism (52436452) Hyperparathyroidism (252.0) 2003 Problem resolved confirmed Mariano-98 5911- Problem Pityriasis versicolo r (70727874) Pityriasis versicolor (111.0) 2005 Problem resolved confirmed Mariano-98 5911- Problem Obstructive sleep apnea syndrome (89061203) Obstructive sleep apnea (adult) (pediatric) (327.23) 2017 Problem resolved confirmed Mariano-98 5911- Problem Carpal tunnel syndrome (05843192) Carpal tunnel syndrome (354.0) 2016 Problem resolved confirmed Mariano-98 5911- Problem Benign essential hypertension (2272302) Essential hypertension, benign (401.1) 2003 Problem resolved confirmed Mariano-98 5911- Problem Seborrhea (4824160569) Seborrhea (706.3) 2012 Problem resolved confirmed Mariano-98 5911- Problem Stress fracture (654443649) Stress fracture of other bone (733.95) 2003 Problem resolved confirmed Mariano-98 5911- Problem Edema (225873763) Edema (782.3) 2011 Problem resolved confirmed Mariano-98 5911- Problem Headache (68143228) Headache (784.0) 11/12 Problem resolved confirmed Mariano-98 5911- Problem Cough (61086194) Cough (786.2) 2018 Problem resolved confirmed Mariano-98 5911- Problem Chest pain (83564200) Chest pain , unspecified (786.50) 2016 Problem resolved confirmed Mariano-98 5911- Problem Basal cell carcinoma of face (543206959) Basal cell carcinoma of skin of other and unspecified parts of face (173.31) 2016 Problem resolved confirmed Mariano-98 5911- Problem Restless legs (54460272) Restless legs syndrome (RLS) (333.94) 2009 Problem resolved confirmed Mariano-98 5911- Problem Depression (623126037) Depression (311) 2007 Problem resolved confirmed Mariano-98 5911- Problem Dizziness (066236881) Dizziness (780.4) 0 2009 Problem resolved confirmed Mariano-98 5911- Problem Umbilical hernia (986351033) Umbilical hernia (553.1) 2006 Problem resolved confirmed Mariano-98 5911- Problem Orchitis and epididymitis (215379970) Epidymitis, unspecified (604.90) 2014 Problem resolved confirmed Mariano-98 5911- Problem Hypercholesterolemia (11375022) Hypercholesterolemia (272.0) 2009 Problem resolved confirmed Mariano-98 5911- Problem Hypotension (20126872) Hypotension, other (458.8) 2016 Problem resolved confirmed Mariano-98 5911- Problem Swelling of limb (03367706) Lower extremity swelling (729.81) 2014 Problem resolved confirmed Mariano-98 5911- Problem Osteoarthritis of knee (393343045) Osteoarthritis of knee (715.16) 2014 Problem resolved confirmed Mariano-98 5911- Problem Screening for ca ncer - other (V76.49) 2012 Problem resolved confirmed Mariano-98 5911- Problem Onychomycosis caused by dermatophyte (395457438) Toe onychomycosis (110.1) 2017 Problem resolved confirmed Mariano-98 5911- Problem Screening for colon cancer (726108875) Screening for colon cancer (V76.49) 2015 Problem resolved confirmed Mariano-98 5911- Problem Angina (372517192) Angina (413.9) 2011 Problem resolved confirmed Mariano-98 5911- Problem Anosmia (25134738) Anosmia (781.1) 2016 Problem resolved confirmed Mariano-98 5911- Problem Contusion of multipl e sites of upper limb (01765617) Multiple contusions of upper limb (923.8) 2015 Problem resolved confirmed Mariano-98 5911- Problem Disorder of hematopoietic system (66251860) Other abnormal findings on blood examination (790.99) 2014 Problem resolved confirmed Mariano-98 5911- Problem Pain in testicle (86547711) Testicular pain (608.89) 2014 Problem resolved confirmed Mariano-98 5911- Problem Chest pain (07994739) Chest pain (786.51) 2011 Problem resolved confirmed Mariano-98 5911- Problem Chronic combined systolic and diastolic heart failure (994593626753345) Combined systolic and diastolic heart failure, chronic (428.42) 2014 Problem resolved confirmed Mariano-98 5911- Problem Earache (572156010) Earache (388.71) 2012 Problem resolved confirmed Mariano-98 5911- Problem Generalized abdomina l pain (796750885) Generalized abdominal pain (789.07) 2005 Problem resolved confirmed Mariano-98 5911- Problem Generalized osteoarthritis (714040316) Generalized osteoarthritis, multiple sites (715.09) 2003 Problem resolved confirmed Mariano-98 5911- Problem Hematochezia (800479983) Hematochezia (578.1) 2005 Problem resolved confirmed Mariano-98 5911- Problem Internal hemorrhoids (47058216) Hemorrhoids, internal (455.0) 2005 Problem resolved confirmed Mariano-98 5911- Problem Lab: Used to mat ch unlinked laboratory orders (V92) 2014 Problem resolved confirmed Mariano-98 5911- Problem Generalized anxiety disorder (00808270) TESSA (300.02) 2015 Problem resolved confirmed Mariano-98 5911- Problem Hand pain (94811558) Hand pain (729.5) 2017 Problem resolved confirmed Mariano-98 5911- Problem Intermittent claudication secondary to arteriosclerosis (440.21) 2013 Problem resolved confirmed Mariano-98 5911- Problem Hypertension (74488415) Hypertension (401.1) 2009 Problem resolved confirmed Mariano-98 5911- Problem Hypotension (35807451) Hypotension (458.8) 2012 Problem resolved confirmed Mariano-98 5911- Problem Pain in limb (13116791) Leg pain (729.5) 2006 Problem resolved confirmed Mariano-98 5911- Problem Screening for malignant neoplasm of colon (185357220) Screening for colorectal cancer (V76.49) 2013 Problem resolved confirmed Mariano-98 5911- Problem General examination of patient (651088012) Annual exam (V70.0) 2008 Problem resolved confirmed Mariano-98 5911- Problem Cardiac arrhythmia (232062802) Bigeminy (427.89) 2012 Problem resolved confirmed Mariano-98 5911- Problem Nose bleeding (784.7) 2005 Problem resolved confirmed Mariano-98 5911- Problem Anxiety state (943821932) Situational stress with anxiety (300.09) 2012 Problem resolved confirmed Mariano-98 5911- Problem Peripheral circulatory disorder associated with type II diabetes mellitus (109016264) Uncontrolled NIDDM with PVD (250.72) 2007 Problem resolved confirmed Mariano-98 5911- Problem Unstable angina (6358331) Unstable angina (411.1) 2013 Problem resolved confirmed Mariano-98 5911- Problem Needs influenza immunization (074276674) Vaccination against other viral diseases, Influenza (V04.81) 2011 Problem resolved confirmed Mariano-98 5911- Problem Weak urinary stream (794558035) Weak urinary stream (788.62) 2017 Problem resolved confirmed Mariano-98 5911- Problem Acute stress reaction with anxiety (308.0) 2014 Problem resolved confirmed Mariano-98 5911- Problem Acute upper respiratory infection (69120727) Acute upper respiratory infection (465.8) 2004 Problem resolved confirmed Mariano-98 5911- Problem Impacted cerumen (78868228) Cerumen impaction (380.4) 2007 Problem resolved confirmed Mariano-98 5911- Problem Chest pain (04399660) Chest pain , other type (786.59) 2016 Problem resolved confirmed Mariano-98 5911- Problem Coronary artery disease (66236201) Coronary artery disease (414.01) 2007 Problem resolved confirmed Mariano-98 5911- Problem Syncope and collapse (498603098) Near-syncope (780.2) 2016 Problem resolved confirmed Mariano-98 5911- Problem Osteoarthritis of shoulder (00832576) Osteoarthritis of shoulder (715.11) 2016 Problem resolved confirmed Mariano-98 5911- Problem Anxiety (66365286) Anxiety (300.02) 04/01 Problem resolved confirmed Mariano-98 5911- Problem Carotid artery stenosis (15510620) Carotid artery stenosis (785.9) 2016 Problem resolved confirmed Mariano-98 5911- Problem Cervical radiculopathy (62048297) Cervical radiculopathy (723.4) 2016 Problem resolved confirmed Mariano-98 5911- Problem Congestive heart failure (84088489) CHF (428.0) 2016 Problem resolved confirmed Mariano-98 5911- Problem Constipation (43957385) Constipation (564.01) 2014 Problem resolved confirmed Mariano-98 5911- Problem Diabetic neuropa thy with moderate loss of protective sensation in feet (250.6) 2008 Problem resolved confirmed Mariano-98 5911- Problem Follow-up exam - other (V67.59) 2016 Problem resolved confirmed Mariano-98 5911- Problem Knee pain (0375605523) Knee pain (719.46) 2013 Problem resolved confirmed Mariano-98 5911- Problem Adjustment disorder with depressed mood (05157893) Bereavement adjustment reaction (309.0) 2017 Problem resolved confirmed Mariano-98 5911- Problem Bradycardia (78176157) Bradycardia (427.89) 2011 Problem resolved confirmed Mariano-98 5911- Problem Erectile dysfunction (429571077) Erectile dysfunction (302.72) 2004 Problem resolved confirmed Mariano-98 5911- Problem Acute gastritis (57035559) Gastritis, acute (535.00) 2016 Problem resolved confirmed Mariano-98 5911- Problem Acute systolic heart failure (541501642) Systolic heart failure, acute (428.21) 2011 Problem resolved confirmed Mariano-98 5911- Problem Abnormal laborat ory test findings without diagnosis (796.4) 2012 Problem resolved confirmed Mariano-98 5911- Problem Acquired trigger finger (9761170) Acquired trigger finger (727.03) 2018 Problem resolved confirmed Mariano-98 5911- Problem Chest discomfort (748514193) Chest discomfort (786.59) 2013 Problem resolved confirmed Mariano-98 5911- Problem Benign hypertensive heart disease with congestive cardiac failure (178264251) CHF due to chronic HTN (402.11) 2011 Problem resolved confirmed Mariano-98 5911- Problem Bilateral inguinal hernia (84924105) Uncomplicated bilateral hernias (550.92) 2006 Problem resolved confirmed Mariano-98 5911- Problem Vitamin D deficiency (79622027) Vitamin D deficiency, unspecified (268.9) 2015 Problem resolved confirmed Mariano-98 5911- Problem Low back pain (700320562) Lower back pain (724.2) 2009 Problem resolved confirmed Mariano-98 5911- Problem Muscle pain (72987979) Muscle aches (729.1) 2015 Problem resolved confirmed [facility]-98 5911- Problem Coronary arteriosclerosis (disorder) (37563335) Coronary artery disease, of nondalton coronary artery (414.01) 2010 Problem resolved confirmed Mariano-98 5911- Problem Essential hypertension (74901525) Essential hypertension (401.1) 2004 Problem resolved confirmed Mariano-98 5911- Problem Finger pain (38009805) Finger pain (729.5) 2016 Problem resolved confirmed Mariano-98 5911- Problem Gastroesophageal reflux disease (816112877) GERD (530.81) 2016 Problem resolved confirmed Mariano-98 5911- Problem Hypertension (46942445) HTN (401.1) 2003 Problem resolved confirmed Mariano-98 5911- Problem Type II diabetes mellitus without complication (236033549) NIDDM (250.00) 2007 Problem resolved confirmed Mariano-98 5911- Problem Visual disturbance (59146139) Other specified visual disturbance (368.8) 2016 Problem resolved confirmed Mariano-98 5911- Problem Primary hypercholesterolemia (091107929) Primary hypercholesterolemia (272.0) 2004 Problem resolved confirmed Mariano-98 5911- Problem Localized, primary osteoarthritis of the shoulder region (658068851) Primary localized osteoarthritis, shoulder region (715.11) 2003 Problem resolved confirmed Mariano-98 5911- Problem Tendonitis (25783332) Tendonitis (726.90) 2016 Problem resolved confirmed Mariano-98 5911- Problem Androgen deficiency (85305090) Testosterone deficiency (259.8) 2005 Problem resolved confirmed Mariano-98 5911- Problem Acute otitis media (8300126) Acute otitis media (382.00) 2013 Problem resolved confirmed Mariano-98 5911- Problem Urinary tract infection (28714343) UTI (595.0) 2009 Problem resolved confirmed Mariano-98 5911- Problem Chronic gastric ulce r without hemorrhage, without perforation AND without obstruction (6746660) Chronic gastric ulcer, without mention of obstruction (531.70) 2012 Problem resolved confirmed Mariano-98 5911- Problem Precordial pain (56382610) Precordial chest pain (786.51) 2006 Problem resolved confirmed Mariano-98 5911- Problem Foot pain (53912144) Foot pain (729.5) 2004 Problem resolved confirmed Mariano-98 5911- Problem Psychosexual dysfunction associated with inhibited sexual excitement (516143242638583) Impotence (302.72) 2006 Problem resolved confirmed Mariano-98 5911- Problem Vaccination agai nst Streptococcus pneumoniae [pneumococcus] (V03.82) 2009 Problem resolved confirmed Mariano-98 5911- Problem Shortness of breath (971435402) Shortness of breath (786.09) 2006 Problem resolved confirmed [facility]11- Problem Thoracic back pain (079170158) Upper back pain (724.5) 2018 Problem resolved confirmed [facility]11- Problem Coronary artery disease (38387402) CAD (414.0) 2014 Problem resolved confirmed [facility] 5911- Plan Of Treatment No Information Medical (General) History Surgical History Surgery Date(Month/Year) Positive forCholecystectomy: 2005; ; Positive forCataract Removal andCardiac Ablation 9\2012;; PTCA (Coronary Angioplasty): 1983;
--- OUTSIDE RECORDS SUMMARY | 2025-06-16 20:31 | XMS_ITS | Encounter Summary ---
Author Organization [email or web address] [facility] Address [address] [place] [address] Care Team Providers Care Circuit Board Inspector Name Role Phone Teodoro Jon DO Primary Care Provider [phone] Encounter Details Date Type Department Care Team (Latest Contact Info) Description 06/04/2003 Outpatient Historical [facility] Audie Rosales Jr., MD [address] [place] [address] ENDOCRINE/NERV TAMMIE NOS (Primary Dx); HYPOVOLEMIA Social History Tobacco Use Types Packs/Day Years Used Date Smoking Tobacco: Never Assessed Sex and Gender Information Value Date Recorded Sex Assigned at Not on file 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
--- OUTSIDE RECORDS SUMMARY | 2025-06-16 20:31 | XMS_ITS | Encounter Summary ---
Author Organization [facility] Address [address] [place] [address] Care Team Providers Care Auto Suspension And Steering Mechanic Name Role Phone Teodoro Jon DO Primary Care Provider [phone] Reason for Referral * Outpatient Services (Routine) - Closed Specialty Diagnoses / Procedures Referred By Contac t Referred To Contact Diagnoses Abnormal echocardiogram Congestive heart failure, unspecified CAD (coronary artery disease) Procedures MRI CARDIAC INTERPRETATION Scottie Valiente MD [address] [place] [address] Phone: tel: fax: Referral ID Status Reason Start Date Expiration Date Visits Re quested Visits Authorized [id number] Closed 09/24/2013 10/25/2014 1 1 UCTION OFFICER Encounter Details Date Type Department Care Team (Latest Contact Info) Description 09/24/2013 [facility]illary Orders [facility] [address] [place] [address] Scottie Valiente MD [address] [place] [address] Abnormal echocardiogram (Primary Dx); Congestive heart [...] on file 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 Exam: MRI CARDIAC INTERPRETATION Date/Time of Exam: Sep 24, 2013 01:22:34 PM Reason For Exam: Nonspecific (abnormal) findings on radiological and other examination of other intrathoracic organs. Examination was performed for evaluation by cardiology. Initial complaint investigations officer images nonspecific. GRISEL/evette 1337 PM - uploaded from [employer] - Procedure Note David Russo MD - 09/24/2013 IMPRESSION - see report below. Exam: MRI CARDIAC INTERPRETATION Date/Time of Exam: Sep 24, 2013 01:22:34 PM Reason For Exam: Nonspecific (abnormal) findings on radiological and other examination of other intrathoracic organs. Examination was performed for evaluation by cardiology. Initial complaint investigations officer images nonspecific. GRISEL/evette 1337 PM - uploaded from [facility] - us Scottie Cecily Valiente MD MR ORDERABLES Final Result INTERFACE SYSTEM Refer to clinic/hospital department documented in this encounter Visit Diagnoses Diagnosis Abnormal echocardiogram- Primary Nonspecific (abnormal) findings on radiological and other examination of other intrathoracic organs Congestive heart failure, unspecified CAD (coronary artery disease) Coronary atherosclerosis of unspecified type of vessel, kletsel dehe wintun or graft Abnormal echocardiogram Nonspecific (abnormal) findings on radiological and other examination of other intrathoracic organs Congestive heart failure, unspecified CAD (coronary artery disease) Coronary atherosclerosis of unspecified type of vessel, kletsel dehe wintun or graft documented in this encounter Care Teams Auto Suspension And Steering Mechanic Relationship Specialty Start Date End Date Teodoro Jon DO [address] [place] [id number] PCP - General Family Practice 03/19/20 documented as of this encounter
--- OUTSIDE RECORDS SUMMARY | 2025-06-16 20:31 | XMS_ITS | Data Portability ---
Author Organization [facility]entes [facility] Address [address] [facility] [address] [place] [address] Assessment Encounter Date Assessment Date Assessment LastModified by Organization Details LastModified Time 01/16/2025 01/16/2025 A Care Coordination Assessment form was filled out as part of this patient's office visit today. [email or web address] Not available 01/16/2025 12:04:25 Plan of Treatment Reminders Order Date Submit Date Provider Last Modified By Organization Details Last Modified Time Details Appointments None recorded. Lab None recorded. Referral None recorded. Procedures colonoscopy , with removal of tumor, polyp or lesion (PROC) [address] [facility], [address] , [place], [address], 11:56:24 Surgeries None recorded. Imaging None recorded. Medication Orders prednisone 20 mg tablet 2022 023 [facility], [address], [place], [address], 5 15:48:48 doxycycline hyclate 100 mg capsule 2022 023 [facility], [address], [place], [address], 5 15:48:38 meloxicam 15 mg tablet [address] [facility], [address], [place], [address], 5 11:59:10 Patient TargetsNo targets recorded. Patient Instructions Encounter Date Encounter Id Patient Instructions Last Modified By Organization Details Last Modified Time 11/21/2022 [id number] Patient honey carter take him to the ER by private vehicle. He has a call in to his financial institution president as well. Report is given to the ER by nursing staff. [email or web address] Not available 11/21/2022 21:08:26 Reason for Referral None Reported. Problems Name Problem SNOMED Code Status Onset Date Resolution Date Notes Provider Name and Address Organization Details Recorded Time Heart disease 44046149 Active 2022 Heart Disease ; 023 9:31AM by TITO Perez, Office Visit; Promote d; acuity set as *; Not Available [facility] 3 03:10:34 History of anxiety state 192818933 Active 2022 Anxiety /Depres romelia; 023 9:31AM by TITO Perez, Office Visit; Promote d; acuity set as *; Not Available [facility] 3 03:10:34 Hypercholest erolemia 38917043 Active 2022 Hyperch olester olemia; 023 9:31AM by TITO Perez, Office Visit; Promote d; acuity set as *; Not Available [facility] 3 03:10:34 Benign essential hypertension 1986136 Active 2022 Hyperte nsion; 023 9:31AM by TITO Perez, Office Visit; Promote d; acuity set as *; Not Available [facility] 3 03:10:35 Acute bronchitis 27351081 Active 2022 Armin Lewis DO [address] [place] [address], [address] , [facility] 3 13:50:47 Screening for malignant neoplasm of colon Active 2024 Armin Lewis DO [address] [place] [address], [address] , [facility] 12:04:47 Essential hypertension 29370809 Active 2024 Armin Lewis [address], [address] , [facility] 12:15:13 Mixed hyperlipidem ia 230857415 Active 2024 Arminevie Lewis[address] , [facility] 12:15:15 Chronic systolic heart failure 447008169 Active 2024 Arminevie Lewis[address] , [facility] 12:15:16 History of atrial fibrillation 386204226 Active 2024 Arminevie Lewis[address] , [facility] 12:16:20 Gastroesopha geal reflux disease 637450795 Active 2024 [place] [address] , [facility] 12:16:21 Problem Notes None recorded. Procedures Surgical History Date Name Laterality Status Provider Name and Address Organization Details Recorded Time 5 jr suture/stapl e removal completed TITO JOHNSON [address] [place] [address], [facility] 10/26/2024 17:18:26 Imaging Results None recorded. Procedure Notes None recorded. Medical Equipment None Reported. Allergies Allergen ID Allergen Name Allergen Category Reaction Reaction Severity Criticality Documentation Date Start Date Code Code System Note Provider Name and Address Organization Details Recorded Time 57019 propoxyph blessing hydrochlo ride medicatio n rash Not available Not available 03/11/2023 57737 RxNorm React ion: Rash; Comme nt: Recor ded 09/28 9:31A M by TITO Godoy, Offic e Visit ; Promo qian; Faisal crowe ce: *; Reaso n: Drug aller gy; ; Not Available [facility] 3 02:23:45 29248 Product containin g penicilli n (product) medicatio n anaphylax is Not available Not available 03/11/2023 91178 8001 SNOMED React ion: Anaph ylaxi s; Comme nt: Recor ded 09/28 9:31A M by TITO Godoy, Offic e Visit ; Promo qian; Faisal crowe ce: *; ; Not Available [facility] 3 02:23:45 Medications Name Sig Start Date [...] Vitamin D3 daily active 0; Recorded 12/19/19 10:28AM by Maurice Alcantar RN, Office Visit; Not Available Not Available Not Available metformin at bedtime 07/04 completed 0; Recorded 12/19/19 22 10:28AM by Maurice Alcantar RN, Office Visit; Not Available Not Available Not Available Potassium Chloride ER daily 06/16 completed 0; Recorded 12/19/19 10:28AM by Maurice Alcantar RN, Office Visit; [...] Pulse oximetry Body temperature Heart rate Systolic And Diastolic Provider Name and Address Organization Details Last Updated DateTime 5 180.34 cm 35.4 kg/m2 829231. 46 g 95 % 95 % 98.6 [degF] 86 /min 118/58 mm[Hg] Saray Knott [facility] 5 15:54:36 Date Recorded Body weight Oxygen saturation Oxygen saturation in Arterial blood by Pulse oximetry Heart rate Respiratory rate Body temperature Systolic And Diastolic Provider Name and Address Organization Details Last Updated DateTime 3 901585. 97 g 94 % 94 % 76 /min 20 /min 97.5 [degF] 112/68 mm[Hg] MAURICE ALCANTAR [facility] 3 16:38:27 Date Recorded Body height Body mass index (BMI) Body weight Oxygen saturation Oxygen saturation in Arterial blood by Pulse oximetry Heart rate Respiratory rate Systolic And Diastolic Provider Name and Address Organization Details Last Updated DateTime 5 180.34 cm 34.2 kg/m2 533498. 13 g 96 % 96 % 88 /min 18 /min 112/60 mm[Hg] WILLY AMIN [facility] 5 11:53:16 Date Recorded Body height Body mass index (BMI) Body weight Oxygen saturation Oxygen saturation in Arterial blood by Pulse oximetry Heart rate Respiratory rate Body temperature Systolic And Diastolic Provider Name and Address Organization Details Last Updated DateTime 3 177.8 cm 37.2 kg/m2 607399. 42 g 98 % 98 % 78 /min 20 /min 98.7 [degF] 140/80 mm[Hg] ROSA HERNANDEZ [facility] 3 11:32:45 Date Recorded Body height Body mass index (BMI) Body weight Heart rate Oxygen saturation Oxygen saturation in Arterial blood by Pulse oximetry Respiratory rate Body temperature Systolic And Diastolic Provider Name and Address Organization Details Last Updated DateTime 3 177.8 cm 36.6 kg/m2 112522. 05 g 72 /min 91 % 91 % 22 /min 98.4 [degF] 126/74 mm[Hg] WILLY AMIN [facility] 3 13:39:53 Social History None recorded. Functional Status Question Answer Note LastModified by Organizat ion Details LastModified Time Do you use any illicit or recreational drugs? No Information not available 07/04/2023 Do you or have you ever used any other forms of tobacco or nicotine? No [email or web address] Information not available 07/04/2023 What is your level of alcohol consumption? None Information not available 07/04/2023 Mental Status None recorded. Family History Nothing Reported. Medical History No medical history recorded. Immunizations Vaccine Type Date Status Note Provider Nam e and Address Organization Details Recorded Time pneumococcal polysaccharide PPV23 5 completed Not Available [facility] 01/16/2025 11:25:23 zoster live 6 completed Not Available [facility] 01/16/2025 11:25:23 Influenza, split virus, quadrivalent, PF 8 completed Not Available [facility] 01/16/2025 11:25:23 Tdap 1 completed Not Available [facility] 01/16/2025 11:25:23 zoster recombinant 3 completed Not Available [facility] 01/16/2025 11:25:23 Pneumococcal conjugate PCV15, polysaccharide IPH051 conjugate, adjuvant, PF 3 completed Not Available [facility] 01/16/2025 11:25:23 Tdap 3 completed Not Available [facility] 01/16/2025 11:25:23 zoster recombinant 3 completed Not Available [facility] 01/16/2025 11:25:23 Influenza, high-dose, quadrivalent, PF 3 completed Not Available [facility] 01/16/2025 11:25:23 Influenza, high-dose, trivalent, PF 4 completed Not Available [facility] 01/16/2025 11:25:23 Past Encounters Encounter ID Performer Location Encounter Start Date Encounter Closed Date Diagnosis/Indication Diagnosis SNOMED-CT Code Diagnosis ICD10 Code Diagnosis IMO Codes Diagnosis Note [id number] TITO COOLEY [facility] ([facility]) [address] [place] [address] 11/21/2022 16:00:33 11/28/2022 14:45:04 Dyspnea 105666185 R06.02 Recommend patient go to ER for CHF evaluation . [id number] RAUL LI PA-C [facility] ([facility]) [address] [place] [phone] 06/16/2023 11:22:28 06/22/2023 11:32:47 Sprain of medial collateral ligament of knee 78776862 S83.411A has brace at home ok to wearIce tid Rest. gentle ROMIf still swollen and tender in 1-2 week f/u with PCP to discuss if MRI or PT more appropriat e [id number] Armin Lewis DO [facility] ([facility]) [address] [place] [address] 07/04/2023 12:49:11 07/04/2023 13:57:07 Cough 20593227 R05.9 Acute bronchitis 8591090 2 J20.9 Concern for developing pneumonia. We will start prednisone and doxycyclin e. Return with worsening. [id number] TITO JOHNSON [facility] ([facility]) [address] [place] [phone] 10/26/2024 15:42:35 10/28/2024 11:47:08 Removal of sutures done 8018739253 02422 Z48.02 Removed sutures without incident. Patient instructed to keep area clean and dry. May apply REX bid. Notify clinic with any signs or symptoms of infection. [id number] Armin Lewis DO [facility] ([facility]) [address] [place] [phone] 01/16/2025 11:25:06 01/17/2025 16:53:12 Screening for malignant neoplasm of colon 578702923 Z12.11 I have reviewed and discussed colon cancer screening options, including colonoscop y. Discussed risks vs benefits including risk of infection and bleeding, perforatio n, possible need for surgery, reaction to medication s, and sever injury or . We discussed pt requiring sedation and possible general anesthesia . Pt agrees to proceed with Colonoscop y at [facility]. Preliminar y procedure date will be 02/27/25 He has appt with Dr. Denis, cardiology to consider stopping eliquis on 02/17/25.we will continue plavix. hold glyburide and Invokanna after taking AM dose the day before procedure. Chronic sy stolic heart failure 655906811 I50.22 702548 stable. continue care with cardiology Mixed hyperlipidemia 267 687458 E78.2 35963 stable. continue simvastati n Essential hypertension 19209878 I10 83806 stable. continue carvedilol . Gastroesop hageal reflux disease 750720580 K21.9 46219111 History of atrial fibrillation 925171866 Z86.[id number] Denis, electrophy siologist at [facility] again in early february. s/p ablation in [...] Member ID Jolly Member ID Guarantor Name 02/25/2025 [place] - [facility] (MEDICARE) Dwayne Salinas [id number] Dwayne Salinas 02/25/2025 1 [place]ICARE [place]: [facility] Dwayne Salinas [id number] Dwayne Salinas 02/24/2025 2 [employer] (MEDICARE SUPPLEMENT) Dwayne Salinas [id number] Dwayne Salinas Notes Date Note Type Note Provider Name and Address Organization Details Recorded Time 3 text/html DyspneaReported by PatientHPIFor quality, patient reportstightness,pressure, can't catch breath, andbreathlessness. For associated symptoms, patient reportschest pain/discomfort,fatigue,an kle swelling,lightheadedness,w eakness, anddecrease in exercise capacity. For duration, patient reportsfor 4 days.Reports his financial institution president increased his entresto dosage 5 days ago. Reports worsening SOB, fatiguq, dizziness, and edema since.ROS as noted in the HPI JACKIE MATTATESTITO [address] [place], [address], [facility] 11/21/2022 21:10:21 3 text/html Musculoskeletal PainReported by PatientHPIFor location, patient reportspain radiating to the legs rightbut reportsright knee. For quality, patient reportssharp,tingling, anddull. For severity, patient reportsdriving impairment,interferes with sleep, andinterferes with work/school. For duration, patient reportspresent <1 month(i stepped over a bunch of boxes and lawnmower deck in shed andd hurt my right knee.). For alleviating factors, patient reportsrest. For aggravating factors, patient reportsmovement/positionin g,bending over, andtwisting. For timing, (06-15-23). twisted knee wrong but did not fall at him yesterday.No hx of injury or surgery to this knee RAUL LI PA-C [address] [place], [address], [facility] 06/19/2023 10:44:35 3 text/html CoughReported by PatientHPIFor associated symptoms, patient reportschills,wheezing,madelaine rtness of breath,throat clearing,nasal discharge,tiredness, andhoarsenessbut reportsno fever. For quality, patient reportsproductive. For severity, patient reportsmoderate.ROS as noted in the HPI [place] pt, PCP is Dr. Jon pt c/o flu like sx, concerned he might have bronchitis, same synptoms as last year with dx of bronchitis. runny nose, chest congestion, cough with sputum, headache, body aches, chills. started 4 days ago. getting worse.pt does not want to be tested for covid.hx of pneumonia about 1 year ago. Armin Lewis DO [address] [place], [address], [facility], [employer]. 07/04/2023 13:54:14 5 text/html ROS as noted in the HPI Walk inhad ablation on 10/23 Dr Denis, sutures to groin B/L told to remove at 48 hours. Here for suture removal. SERGE POSEY, PHOTOGEOLOGIST [address] [place], [address], [facility], Kadie 10/26/2024 17:19:51 5 text/html Colonoscopy ScreeningReported by PatientColonoscopy ScreeningFor context, patient reportsprior examinationandhistory of colon polyps. For gi symptoms, patient reportsno abdominal pain,no constipation,no change in the stool, andno color change in stool. For associated symptoms, patient reportsnormal appetite,no fever,no nausea, andno vomiting. For family history, patient reportsno polypsandno colon cancer.ROS as noted in the HPI The patient presents today at the request [...] Thinners: Eliquis and Plavix seeing Dr Denis, information operator at [facility] again in early february. s/p ablation in october 2024 which treated a flutter/afib. no longer in afib. Co-morbidities: Afib with pacemaker, CAD, DM with a1c of 7.2 in october 2024, CHF. Armin Lewis, DO [address] [place], [address], [facility] 01/16/2025 12:18:28
--- OUTSIDE RECORDS SUMMARY | 2025-06-16 20:31 | XMS_ITS | Clinical Summary ---
Author Organization [facility] Address [address] [place] [address] Care Team Providers Care Molder Machine Tender Name Role Phone DontrellTeodoro jones Deidra VILLANUEVA Primary Care Provider [phone] Allergies Active Allergy Reactions Criticality Noted Date Comments Penicillins Hives High 01/14/2013 Propoxyphene N-Acetaminophen Shortness o f Breath/Wheezing High 01/14/2013 Medications sildenafiL (VIAGRA) 25 mg tablet Take 20 mg by mouth 1 time daily as needed for Erectile Dysfunction. 08/29/19 20 Active cholecalciferol , Vitamin D3, 50 mcg (2,000 unit) Tablet Take 1,000 Units by mouth daily. 08/29/19 20 Active omeprazole (PriLOSEC) 20 mg Capsule, Delayed Release(E.C.) Take 20 mg by mouth 2 times daily. 11/23/19 19 Active escitalopram oxalate (LEXAPRO) 10 mg tablet Take 10 mg by mouth daily. 12/04/19 21 Active acetaminophen (TYLENOL) 500 mg Capsule Take by mouth every 4 hours as needed. 12/04/19 21 Active simvastatin (ZOCOR) 20 mg tablet Take 1 Tablet (20 mg) by mouth late in the day. 30 Tablet 2 06/20/20 16 Active carvediloL (COREG) 25 mg tablet Take 25 mg in the AM and 12.5 in the PM. 60 Tablet 3 06/20/20 16 Active Additional Information Patient taking differently: 25mg am and 25mg pm, Reported on 06/11/2025 spironolactone (ALDACTONE) 25 mg tablet Take 12.5 mg by mouth daily. Active glyBURIDE 5 mg tablet (DIABETA) Take 5 mg by mouth daily with breakfast. 02/12/20 Active metFORMIN (GLUCOPHAGE XR) 500 mg Extended Release 24 hour tablet TAKE 2 TABLETS BY MOUTH TWICE DAILY FOR DIABETES MELLITUS 02/12/20 Active nitroglycerin (NITROSTAT) 0.4 mg Tablet, Sublingual Place 1 Tablet (0.4 mg) under tongue every 5 minutes as needed for Chest Pain. 25 Tablet 3 03/31/20 22 Active apixaban (ELIQUIS) 5 mg tablet Take 1 Tablet (5 mg) by mouth 2 times daily. 60 Tablet 11 04/25/20 22 Active clopidogreL (PLAVIX) 75 mg Tablet Take 75 mg by mouth daily. 05/23/20 Active ascorbic acid (vitamin C) 1,000 mg tablet (VITAMIN C) Take 1,000 mg by mouth daily. Active cyanocobalamin (vit B-12) 1,000 mcg tablet Take 1,000 mcg by mouth daily. Active ZINC ORAL Take 50 mg by mouth. Active albuterol sulfate HFA 90 mcg/actuation aerosol inhaler 10/05/19 23 Active sacubitriL-vals zeinab (Entresto) 49-51 mg Tablet Take 1 Tablet by mouth 2 times daily. 60 Tablet 11 11/30/19 23 Active furosemide (LASIX) 40 mg tablet Take 40 mg by mouth daily. 11/24/19 23 Active multivitamin tablet Take 1 Tablet by mouth daily. Active traMADoL (ULTRAM) 50 mg tablet Take 50 mg by mouth every 6 hours as needed for Pain. Active canagliflozin (Invokana) 300 mg tablet Take 300 mg by mouth daily before breakfast. Active amiodarone (CORDARONE) 200 mg tablet Take 200 mg by mouth 2 times daily. Active ranolazine ER (RANEXA) 500 mg Extended Release 12 hour tablet Take 500 mg by mouth every 12 hours. Active pantoprazole (PROTONIX) 40 mg Tablet, Delayed Release (E.C.) Take 40 mg by mouth daily. 05/27/20 Active tadalafil (CIALIS) 5 mg tablet 5 mg 1 time daily as needed. Active amiodarone (CORDARONE) 400 mg TabletIndicatio ns:Atrial fibrillation, unspecified type (CMS/HCC) Take 0.5 Tablets (200 mg) by mouth daily. 30 Tablet 11 07/03/20 025 Discontinued Active Problems Problem Noted Date Diagnosed Date A-fib 06/04/[address] - Medtronic 12/26/2024 AF [...] Encounters Date Type Department Care Team Description 06/11/2025 12:29 PM CDT - 06/11/2025 12:56 PM CDT Surgery [facility] Cardiac Release Of Information Clerk [address] [place] [phone] Ana Denis MD Cardioversion 06/11/2025 9:48 AM CDT - 06/11/2025 2:33 PM CDT Hospital Encounter [facility] Prep Recovery [address] [place] [phone] Ana Denis MD A-fib (CMS/HCC) Discharge Disposition: Home or Self Care 06/04/2025 Prep for Surgery [facility] [address] [place] [phone] Ana Denis MD Persistent atrial fibrillation (CMS/HCC) (Primary Dx) 06/04/2025 Telephone [facility] [address] [place] [phone] Joyce Kennedy RN Procedure 06/03/2025 9:15 AM CDT Procedure visit [facility] [address] [place] [phone] Ana Denis MD VT (ventricular tachycardia) (CMS/HCC) (Primary Dx); Ischemic cardiomyopathy 06/03/2025 9:15 AM CDT Office Visit [place] [address] [place] [phone] Ana Denis MD Ischemic dilated cardiomyopathy (CMS/HCC) (Primary Dx); S/P ablation of atrial fibrillation; Persistent atrial fibrillation (CMS/HCC); Atrial fibrillation, unspecified type (CMS/HCC) 05/28/2025 Orders Only [place] [address] [place] [phone] Ana Denis MD Benign hypertension (Primary Dx) 05/22/2025 Telephone [place] [address] [place] [phone] Joyce Kennedy RN Procedure 05/22/2025 Telephone [place] [address] [place] [phone] Joyce Kennedy RN Abnormal Cardiovascular Test 05/21/2025 8:00 AM CDT Procedure visit [place] [address] [place] [phone] [place] (ventricular tachycardia) (CMS/HCC) (Primary Dx); Ischemic dilated cardiomyopathy (CMS/HCC); Atrial fibrillation, unspecified type (CMS/HCC); Automatic implantable cardioverter-defibril lator in situ 05/16/2025 1:38 PM CDT - 05/16/2025 11:59 PM CDT Hospital Encounter [facility] [place] [address] [place] [phone] Ana Denis MD Discharge Disposition: Home or Self Care 04/29/2025 External Device Data STL ABSTRACTION Provider, Abstract 04/28/2025 8:00 AM CDT Procedure visit [place] [address] [place] [phone] Ischemic dilated cardiomyopathy (CMS/HCC) (Primary Dx); VT (ventricular tachycardia) (CMS/HCC); Atrial fibrillation, unspecified type (CMS/HCC); Automatic implantable cardioverter-defibril lator in situ 03/18/2025 External Device Data STL ABSTRACTION Provider, Abstract from Last 3 Months Immunizations Immunization Administration Dates Next Due (PNEUMOVAX 23)(50 YRS UP) PN EUMOCOCCAL POLYSACCHARIDE (PPV23) 0.5 ML, IM 05/12/2015,10/30/2002 (SHINGRIX)(50 YRS UP) ZOSTER VACCINE RECOMBINANT, 0.5 ML, IM 09/05/2022 (VAXNEUVANCE)(2-15 MOS)(18 Y RS UP) PNEUMOCOCCAL CONJUGATE (PCV15), POLYSACCHARIDE [id number] CONJUGATE, ADJUVANT, PED 4 DOSE/ADULT 1 DOSE [...] on file Legal Sex Male 4:49 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 Gender Identity Not on file Sexual Orientation [...] Mass Index 34.84 06/11/2025 10:40 AM CDT Plan of Treatment Upcoming Encounters Date Type Department Care Team (Late st Contact Info) Description 06/30/2025 12:45 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 Office Visit [place] [address] [place] [phone] Ana Denis MD [address] [place] [phone] 09/02/2025 8:15 AM CYANIDE POT HARDENER Procedure visit [place] [address] [place] [phone] Ana Denis MD [address] [place] [phone] 09/05/2025 10:40 AM CYANIDE POT HARDENER Office Visit [facility] [address] [place] [phone] Ana Denis MD [address] [place] [phone] Yvrose Denis PA NO ADDRESS ON FILE Health Maintenance Due Date Last Done Comments Pre-Diabetes and Diabetes Screening 1955 Traditional Medicare (ACO) A nnual Wellness Visit 1974 COLORECTAL SCREENING 2000 Colorectal Cancer Screening 2000 FIT-DNA Q 3 years 2000 FIT/FOBT Q 1 year 2000 Flex Sig/CT Colonography Q 5 years 2000 RSV VACCINE (60+ or ) (1 - Risk 50-74 years 1-dose series) 2005 Abdominal Aortic Aneurysm (A AA) Screening 2020 DTAP/TDAP/TD VACCINES (1 - Tdap) 11/03/2022 11/02/2022, 11/02/2022, 08/19/2020, Additional history exists INFLUENZA VACCINE (#1) 2025 , 05/15/2024, 05/29/2023, Additional history exists PNEUMOCOCCAL VACCINE 50+ YEARS Completed 0 09/05/2022, 09/02/2022, 05/12/2015, Additional history exists ZOSTER VACCINE Completed 11/02/2022, 08/15, 09/25/2015 Medical Devices Implanted Type Area Acquisition Marketing Manager Device Identifier Shelf Expiration Date Model / Serial / Lot Defib Icd Garrison Xt Mri [id number] Dual Chmbr Surescan [id number] - [id number] Implanted:Qty: 1 on 11/01/2023 by Ana Denis MD at [facility] Defibrillator N/A: Chest [employer]TR[employer]- CARD RHYTHM MGMT [id number] 03/10/2025 [id number] / [id number] [id number] / Lead Sprint Quattro 62cm 6947m-62 - Csc - [id number] Implanted:Qty: 1 on 11/01/2023 by Ana Denis MD at [facility] Lead N/A: Chest [employer]- CRM - BULK BUY [id number] 05/18/2024 [id number] / [id number] 5V / Lead Capsurefix Novus Mri 52cm Endocardial Pacing 5076-52 - [id number] Implanted:Qty: 1 on 11/01/2023 by Ana Denis MD at [facility] Lead N/A: Chest [employer]- CRM - BULK BUY [id number] 07/26/2025 5076-52 / [id number] 9V Procedures Procedure Name Priority Date/Time Associated Diagnosis Comments CARDIOVERSION Routine 06/11/2025 12:52 PM CDT A-fib (CMS/HCC) DIFFERENTIAL, MANUAL Routine 06/11/2025 10:25 AM CDT BASIC METABOLIC PANEL Routine 06/11/2025 10:25 AM CDT PROTIME-INR Routine 06/11/2025 10:25 AM CDT CBC WITH DIFFERENTIAL Routine 06/11/2025 10:25 AM CDT EKG 12-LEAD Routine 06/11/2025 10:21 AM CDT NM PRGRMG EVAL IMPLANTABLE IN PRSN DUAL LEAD DFB Routine 06/04/2025 2:10 PM CDT VT (ventricular tachycardia) (CMS/HCC) Ischemic cardiomyopathy NM ECG ROUTINE ECG W/LEAST 12 LDS W/I&R Routine 06/03/2025 9:52 AM CDT Benign hypertension NM REM INTERROG PM/LDLS PM/IDS <90 D TECH REVIEW Routine 05/21/2025 9:04 PM CDT VT (ventricular tachycardia) (CMS/HCC) Ischemic dilated cardiomyopathy (CMS/HCC) Atrial fibrillation, unspecified type (CMS/HCC) Automatic implantable cardioverter-defibril lator in situ NM INTERROGATION EVAL REMOTE </90 D 1/2/MANAGER ADVANCED LD DFB Routine 05/21/2025 9:04 PM CDT VT (ventricular tachycardia) (CMS/HCC) Ischemic dilated cardiomyopathy (CMS/HCC) Atrial fibrillation, unspecified type (CMS/HCC) Automatic implantable cardioverter-defibril lator in situ NM INTERROG EVAL, REMOTE, UP TO 90 DAYS, PACER/DEFIB WITHIN GLOBAL Routine 04/28/2025 2:12 PM CDT Ischemic dilated cardiomyopathy (CMS/HCC) VT (ventricular tachycardia) (CMS/HCC) Atrial fibrillation, unspecified type (CMS/HCC) Automatic implantable cardioverter-defibril lator in situ NM INTERROG EVAL, REMOTE, UP TO 90 DAYS,CARDVERT/DEFIB WITHIN GLOBAL Routine 04/28/2025 2:12 PM CDT Ischemic dilated cardiomyopathy (CMS/HCC) VT (ventricular tachycardia) (CMS/HCC) Atrial fibrillation, unspecified type (CMS/HCC) Automatic implantable cardioverter-defibril lator in situ from Last 3 Months Results * CARDIOVERSION (06/11/2025 12:52 PM CDT) Narrative [facility] - 06/11/2025 1:02 PM CDT Title of procedure: DCCV Reason for the procedure: Atrial fibrillation/flutter Description of the procedure: After informed consent obtained. Patient sent to the crime lab analyst in a post-absorptive state. Conscious sedation was [...] MD CUP EP ORDERABLES Final Resul t [facility] CLIA [id number] [address] [facility] [address] [place] [phone], [place] [phone] * MANUAL DIFFERENTIAL (06/11/2025 10:25 AM CDT) PLATELET EST. Adequate 06/11/2025 11:09 AM CDT [facility] ANISOCYTOSIS 2+ /hpf 06/11/2025 11:09 AM CDT [facility] POIKILOCYTES 2+ /hpf 06/11/2025 11:09 AM CDT [facility] MICROCYTES 2+ /hpf 06/11/2025 11:09 AM CDT [facility] POLYCHROMASIA 1+ /hpf 06/11/2025 11:09 AM CDT [facility] HYPOCHROMIA 2+ /hpf 06/11/2025 11:09 AM CDT [facility] TARGET CELLS 1+ /hpf 06/11/2025 11:09 AM CDT [facility] SCHISTOCYTES 1+ /hpf 06/11/2025 11:09 AM CDT [facility] TEAR DROP CELLS 1+ /hpf 11:09 AM CDT [facility] Blood Venipuncture / Unknown 06/11/2025 10:25 AM CDT 06/11/2025 10:29 AM CDT us Ana Denis MD HEMATOLOGY ORDERABLES COM Fin al Result [facility] CLIA # [id number] [address] [place] [address] * (ABNORMAL) CBC WITH DIFFERENTIAL (06/11/2025 10:25 AM CDT) Pathologist [facility] WBC 5.8 4.8 - 10.8 K/uL 06/11/2025 11:09 AM CDT [facility] RBC 4.82 4.60 - 6.20 M/uL 06/11/2025 11:09 AM CDT [facility] HEMOGLOBIN 8.4(L) 14.0 - 18.0 g/dL 06/11/2025 11:09 AM CDT [facility] HEMATOCRIT 31.1(L) 41.0 - 53.0 % 06/11/2025 11:09 AM [facility] MCV 64.5(L) 84.0 - 103.0 fL 06/11/2025 11:09 AM [facility] MCH 17.4(L) 27.0 - 34.0 pg 06/11/2025 11:09 AM [facility] MCHC 27.0(L) 30.0 - 35.0 g/dL 06/11/2025 11:09 AM [facility] PLATELETS 288 140 - 440 K/uL 06/11/2025 11:09 AM [facility] [employer] [facility] MPV 9.2 8.9 - 12.8 fL 06/11/2025 11:09 AM [facility] [employer] [facility] RDW 19.9(H) 11.0 - 14.5 % 06/11/2025 11:09 AM [facility] [employer] [facility] RDW-STDEV 44.9 37.0 - 54.0 fL 06/11/2025 11:09 AM [facility] [employer] [facility] NEUTROPHILS 69 42 - 75 % 06/11/2025 11:09 AM [facility] LYMPHOCYTES 11(L) 24 - 44 % 06/11/2025 11:09 AM [facility] MONOCYTES 14(H) 2 - 10 % 06/11/2025 11:09 AM [facility] [employer] [facility] EOSINOPHILS 4 0 - 7 % 06/11/2025 11:09 AM [facility] [employer] [facility] BASOPHILS 1 0 - 1 % 06/11/2025 11:09 AM [facility] IMMATURE GRANULOCYTES 0 0 - 2 % 06/11/2025 11:09 AM [facility] [employer] [facility] NEUTROPHIL ABSOLUTE 3.99 2.00 - 8.00 K/uL 06/11/2025 11:09 AM [facility] [employer] [facility] LYMPHOCYTE ABSOLUTE 0.64(L) 1.20 - 4.00 K/uL 06/11/2025 11:09 AM [facility] MONOCYTE ABSOLUTE 0.84(H) 0.10 - 0.60 K/uL 06/11/2025 11:09 AM CDT [facility] EOSINOPHIL ABSOLUTE 0.25 0.00 - 0.70 K/uL 06/11/2025 11:09 AM CDT [facility] BASOPHILS ABSOLUTE 0.08 0.00 - 0.20 K/uL 06/11/2025 11:09 AM T [facility] IMMATURE GRANULOCYTES ABSOLUTE 0.02 0.00 - 0.10 K/uL 06/11/2025 11:09 AM T [facility] SMEAR REVIEWED: SR - See Smear Review on Manual Diff. 06/11/2025 11:09 AM T [facility] Blood Venipuncture / Unknown 06/11/2025 10:25 AM CDT 06/11/2025 10:29 AM CDT us Ana Denis MD HEMATOLOGY ORDERABLES Final R esult [facility] CLIA # [id number] [address] [place] [address] * (ABNORMAL) PROTIME-INR (06/11/2025 10:25 AM CDT) PROTIME 20.5(H) 12.7 - 14.9 Seconds 06/11/2025 10:45 AM CDT [facility] INR 1.7(H) 0.8 - 1.2 06/11/2025 10:45 AM CDT [facility] Blood Venipuncture / Unknown 06/11/2025 10:25 AM CDT 06/11/2025 10:29 AM CDT Narrative [facility] - 06/11/2025 10:45 AM CDT Expected Values for INR: DVT/PE Goal INR 2.5; range 2.0 - 3.0 Valve Replacement Tissue Goal INR 2.5; range 2.0 - 3.0 Valve Replacement Mechanical Goal INR 3.0; range 2.5 - 3.5 POST-MS Goal INR 2.5; range 2.0 - 3.0 or Goal INR 3.0; range 2.5 - 3.5 Atrial Fibrillation Goal INR 2.5; range 2.0 - 3.0 Ischemic Stroke Goal INR 2.5; range 2.0 - 3.0 us Ana Denis MD HEMATOLOGY ORDERABLES Final R esult [facility] CLIA # [id number] [address] [place] [address] * (ABNORMAL) BASIC METABOLIC PANEL (06/11/2025 10:25 AM CDT) SODIUM 135(L) 136 - 145 mmol/L 06/11/2025 11:03 AM [facility] POTASSIUM 3.8 3.5 - 5.1 mmol/L 06/11/2025 11:03 AM [facility] CHLORIDE 98 98 - 107 mmol/L 06/11/2025 11:03 AM [facility] CO2 26 22 - 29 mmol/L 06/11/2025 11:03 AM [facility] CALCIUM 8.4(L) 8.8 - 10.2 mg/dL 06/11/2025 11:03 AM [facility] BUN 19 8 - 23 mg/dL 06/11/2025 11:03 AM [facility] CREATININE 1.23(H) 0.67 - 1.17 mg/dL 06/11/2025 11:03 AM [facility] GLUCOSE 178(H) 74 - 99 mg/dL 06/11/2025 11:03 AM [facility] GFR >60 >=60 mL/min/1. 73 sq meter 06/11/2025 11:03 AM [facility] Comment:eGFR calculated with 2020 CKD-EPI equation. Vegetarian diet, extremely high or low muscle mass, and may affect results. Cystatin C with Glomerular Filtration Rate is a suitable alternative for these patients. ANION GAP 11 9 - 20 mmol/L 06/11/2025 11:03 AM CDT [facility] Blood Venipuncture / Unknown 06/11/2025 10:25 AM CDT 06/11/2025 10:29 AM CDT us Ana Denis MD CHEMISTRY ORDERABLES Final Re sult [facility] CLIA # [id number] [address] [place] [address] * EKG 12-LEAD (06/11/2025 10:21 AM CDT) Only the most recent of2 resultswithin the time period is included. 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 : 1955 Requested By: Order Number: [id number] [place] MD: Breana Garcia Measurements Intervals [place] Rate: 68 P: 0 NM: 0 QRS: 76 QRSD: 118 T: 196 QT: 440 QTc: 467 Interpretive Statements Atrial fibrillation with a competing junctional pacemaker Incomplete left bundle branch block Nonspecific ST and T wave abnormality Abnormal ECG Electronically Signed On 06-11-2025 17:44:27 CDT by Breana Garcia Procedure Note Breana Garcia, DO - 06/11/[address] [address] Test Date: 2025-06-11 Pat Name: DWAYNE WERNER Department: 12 Room: [facility] Re Gender: Male 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 de Phone Number INTERFACE SYSTEM Refer to clinic/hospital department * NM PRGRMG EVAL IMPLANTABLE IN PRSN DUAL LEAD DFB (06/04/2025 2:10 PM CDT) Narrative [facility] - 06/04/2025 2:10 PM CDT Rachel Mccollum 06/04/2025 2:10 PM Office Device Check By Vendor Rehabilitation Liaison Date of Procedure: June 03, 2025 Acquisition Marketing Manager: [employer] Comments: Office check by [employer] financial representative in conjunction w/ EP office visit. Interrogation reviewed by provider. Please see scan for details. Procedure Note Rachel Mccollum - 06/04/2025 2:10 PM CDT Office Device Check By Vendor Rehabilitation Liaison Date of Procedure: June 03, 2025 Acquisition Marketing Manager: [employer] Comments: Office check by [employer] financial representative in conjunction w/ EPoffice visit. Interrogation reviewed by provider. Please see scan for details. us Ana Denis MD CARDIAC SERVICES ORDERABLES F inal Result Performing Organization Address [facility] de Phone Number [facility] [address] [place] [address] * NM INTERROGATION EVAL REMOTE </90 D 1/2/MANAGER ADVANCED LD DFB, NM REM INTERROG PM/LDLS PM/IDS <90 D TECHREVIEW (05/21/2025 9:04 PM CDT) Only the most recent of2 resultswithin the time period is included. 05/21/2025 9:04 PM CDT Narrative INTERFACE SYSTEM - 05/22/2025 5:56 AM CDT Wendy Perez RN 05/22/2025 6:22 AM Remote Transmission Report Date of Procedure: May 22, 2025 Events: None AT/AF: 100%, pt has Hx of AF and is on Eliquis Comments: Carelink remote transmission reveals normal dual chamber ICD function with stable available threshold and impedance trends. Presenting EGM indicates Atrial fib with ventricular sensing. Follow-up with Remote in 3 months. See attached report for details. us Ana Denis MD CARDIAC SERVICES ORDERABLES E dited Result - Final INTERFACE SYSTEM Refer to clinic/hospital department from Last 3 Months Insurance MEDICARE PART A AND B [employer] SUPP [place] [id number] * Guarantor: DWAYNE WERNER Account Type Relation to Patient Date of Phone Billing Address Personal/Family [address] [place] [address] RX [facility] Medicare Part D Advance Directives For more information, please contact: [phone] * Full Code (Latest Code Status on File) Date Activated Date Inactivated Comments 06/11/2025 9:52 AM 06/11/2025 4:33 PM * Full Code Date Activated Date Inactivated Comments 10/23/2024 1:11 PM 10/23/2024 9:42 PM * Full Code Date Activated Date Inactivated Comments 10/23/2024 5:57 AM 10/23/2024 1:11 PM * Full Code Date Activated Date Inactivated Comments 07/03/2024 7:44 AM 07/03/2024 1:46 PM * Full Code Date Activated Date Inactivated Comments 11/01/2023 2:40 PM 11/01/2023 7:27 PM Care Teams Molder Machine Tender Relationship Specialty Start Date End Date Teodoro Jon DO [address] [place] [phone] PCP - General 11/28/20
--- OUTSIDE RECORDS SUMMARY | 2025-06-16 20:32 | XMS_ITS | Encounter Summary ---
Author Organization [employer] [facility] Address [address] [place] [address] Care Team Providers Care Phlebotomist Medical Lab Assistant Name Role Phone Teodoro Jon DO Primary Care Provider Encounter Details Date Type Department Care Team (Latest Contact Info) Description 01/04/2002 Outpatient Historical HIS [facility] Audie Rosales Jr., MD [address] [place] [address] HYPERTENSION NOS (Primary Dx); DIABETES UNCOMPL ADULT-TYPE II (CMS/[facility]) Social History Tobacco Use Types Packs/Day Years Used Date Smoking Tobacco: Never Assessed Sex and Gender Information Value Date Recorded Sex Assigned at Not on file 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
--- OUTSIDE RECORDS SUMMARY | 2025-06-16 20:32 | XMS_ITS | Encounter Summary ---
Author Organization [email or web address] [facility] Address [address] [place] [address] Care Team Providers Care Leather Stitcher Name Role Phone Teodoro Jon DO Primary Care Provider [phone] Encounter Details Date Type Department Care Team (Latest Contact Info) Description 11/22/2001 Outpatient Historical HIS [facility] Audie Rosales Jr., MD [address] [place] [phone] HYPERTENSION NOS (Primary Dx); OSTEOARTHROS NOS-UNSPEC; OBESITY NOS Social History Tobacco Use Types Packs/Day Years Used Date Smoking Tobacco: Never Assessed Sex and Gender Information Value Date Recorded Sex Assigned at Not on file 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
--- OUTSIDE RECORDS SUMMARY | 2025-06-16 20:32 | XMS_ITS | Encounter Summary ---
Author Organization [employer] [facility] Address [address] [place] [address] Care Team Providers Care Assistant Auditor Name Role Phone Teodoro Jon DO Primary Care Provider [phone] Encounter Details Date Type Department Care Team (Latest Contact Info) Description 11/29/2001 Outpatient Historical HIS [facility] Audie Rosales Jr., MD [address] [place] [phone] ABN BLOOD CHEMISTRY NEC (Primary Dx) Social History Tobacco Use Types Packs/Day Years Used Date Smoking Tobacco: Never Assessed Sex and Gender Information Value Date Recorded Sex Assigned at Not on file 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
--- OUTSIDE RECORDS SUMMARY | 2025-06-16 20:32 | XMS_ITS | Encounter Summary ---
Author Organization [employer] [facility] Address [address] [place] [address] Care Team Providers Care Traveling Sales Representative Name Role Phone Teodoro Jon DO Primary Care Provider [phone] Encounter Details Date Type Department Care Team (Latest Contact Info) Description 08/01/2002 Outpatient Historical HIS [facility] Audie Rosales Jr., MD [address] [place] [phone] HYPERTENSION NOS (Primary Dx); OSTEOARTHROS NOS-UNSPEC Social History Tobacco Use Types Packs/Day Years Used Date Smoking Tobacco: Never Assessed Sex and Gender Information Value Date Recorded Sex Assigned at Not on file 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
--- OUTSIDE RECORDS SUMMARY | 2025-06-16 20:32 | XMS_ITS | Encounter Summary ---
Author Organization [employer] [facility] Address [address] [place] [address] Care Team Providers Care Radiological Health Specialist Name Role Phone Teodoro Jon DO Primary Care Provider [phone] Encounter Details Date Type Department Care Team (Latest Contact Info) Description 10/30/2002 Outpatient Historical [facility] Audie Rosales Jr., MD [address] [place] [phone] DIABETES UNCOMPL ADULT-TYPE II (CMS/HCC) (Primary Dx); HYPERTENSION NOS; Pure hypercholesterolem; VACCINE FOR STREP PNEUMONIAE Social History Tobacco Use Types Packs/Day Years Used Date Smoking Tobacco: Never Assessed Sex and Gender Information Value Date Recorded Sex Assigned at Not on file 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
--- OUTSIDE RECORDS SUMMARY | 2025-06-16 20:32 | XMS_ITS | Encounter Summary ---
Author Organization [facility] Address [address] [place] [address] Care Team Providers Care Independent Living Instructor Name Role Phone Teodoro Jon DO Primary Care Provider [phone] Encounter Details Date Type Department Care Team (Late st Contact Info) Description 08/01/2002 Outpatient Historical [facility] Medicine- [facility] [address] [place] [address] Audie Rosales Jr., MD [address] [place] [address] Social History Tobacco Use Types Packs/Day Years Used Date Smoking Tobacco: Never Assessed Sex and Gender Information Value Date Recorded Sex Assigned at Not on file 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
--- OUTSIDE RECORDS SUMMARY | 2025-06-16 20:32 | XMS_ITS | Encounter Summary ---
Author Organization [employer] [facility] Address [address] [place] [address] Care Team Providers Care Dry Sand Molder Name Role Phone Teodoro Jon DO Primary Care Provider [phone] Encounter Details Date Type Department Care Team (Latest Contact Info) Description 01/29/2003 Outpatient Historical HIS [facility] Audie Rosales Jr., MD [address] [place] [address] LIPOID METABOL DIS NOS (Primary Dx); HYPERTENSION NOS Social History Tobacco Use Types Packs/Day Years Used Date Smoking Tobacco: Never Assessed Sex and Gender Information Value Date Recorded Sex Assigned at Not on file 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
--- OUTSIDE RECORDS SUMMARY | 2025-06-16 20:32 | XMS_ITS | Encounter Summary ---
Author Organization [facility] Address [address] [place]: [place] [address] Care Team Providers Care Library Circulation Technician Name Role Phone Teodoro Jon DO Primary Care Provider [phone] Encounter Details Date Type Department Care Team (Late st Contact Info) Description 03/28/[address] MD [address] 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
--- OUTSIDE RECORDS SUMMARY | 2025-06-16 20:32 | XMS_ITS | Encounter Summary ---
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
--- OUTSIDE RECORDS SUMMARY | 2025-06-16 20:32 | XMS_ITS | Encounter Summary ---
Author Organization [facility] Address [address] 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
--- OUTSIDE RECORDS SUMMARY | 2025-06-16 20:32 | XMS_ITS | Encounter Summary ---
Author Organization [employer] [facility] Address [address] [place] [address] Care Team Providers Care Steward Dishwasher Name Role Phone Teodoro Jon DO Primary Care Provider [phone] Encounter Details Date Type Department Care Team (Latest Contact Info) Description 04/03/2002 Outpatient Historical HIS [facility] Audie Rosales Jr., MD [address] [place] [address] OSTEOARTHROS NOS-UNSPEC (Primary Dx); JOINT PAIN-UNSPEC Social History Tobacco Use Types Packs/Day Years Used Date Smoking Tobacco: Never Assessed Sex and Gender Information Value Date Recorded Sex Assigned at Not on file 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
--- OUTSIDE RECORDS SUMMARY | 2025-06-16 20:32 | XMS_ITS | Encounter Summary ---
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
--- OUTSIDE RECORDS SUMMARY | 2025-06-16 20:32 | XMS_ITS | Encounter Summary ---
Author Organization [facility] Address [address] 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
--- OUTSIDE RECORDS SUMMARY | 2025-06-16 20:32 | XMS_ITS | Encounter Summary ---
Author Organization [employer] [facility] Address [address] [place] [address] Care Team Providers Care Applications System Analyst Name Role Phone Teodoro Jon DO Primary Care Provider [phone] Encounter Details Date Type Department Care Team (Latest Contact Info) Description 05/03/2002 Outpatient Historical HIS [facility] Audie Rosales Jr., MD [address] [place] [phone] HYPERTENSION NOS (Primary Dx); OSTEOARTHROS NOS-UNSPEC Social History Tobacco Use Types Packs/Day Years Used Date Smoking Tobacco: Never Assessed Sex and Gender Information Value Date Recorded Sex Assigned at Not on file Legal 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
--- NOTE | 2025-06-16 20:33 | ECG_ITS ---
[facility] Test Date: 2025-06-16 Pat Name: Dwayne Salinas Department: Room: Gender: Male Foreign Broadcast Specialist: : 1955 Requested By: Lina Puri Order Number: [id number] [place] MD: Glory Simpson M.D. Measurements Intervals [place] Rate: 88 P: -74 LA: 302 QRS: 73 QRSD: 121 T: 190 QT: 369 QTc: 447 Interpretive Statements Atrial fibrillation with premature ventricular contractions POSSIBLE ANTERIOR MYOCARDIAL INFARCTION , PROBABLY OLD [30 ms Q WAVE IN V3/V4, OR R < 0.2 mV IN V4] Compared to ECG 02/06/2025 21:59:02 Ventricular premature complex(es) now present First degree AV block now present Myocardial infarct finding now present Atrial-paced complex(es) or rhythm no longer present Ventricular-paced complex(es) or rhythm no longer present Electronically Signed On 06-17-2025 22:03:49 SHOE SHINER by Gloyr Simpson M.D. [id number]
--- NOTE | 2025-06-16 23:52 | W.ED.CHESTPA ---
HPI - Chest Pain General: Chief Complaint: ER Hold Stated Complaint: Dr. Don referral Time Seen by Provider: 06/16/25 23:37 History of Present Illness: 69yo M w/pmhx of CAD, atrial fibrillation on eliquis and amiodarone, CHF (last echo in 2023 shows reduced systolic function w/EF of 35%) w/cc of exertional hypotension, chest pain, shortness of breath, abdominal distension, weight gain, LE swelling despite taking 3x dose of lasix (total of 120mg for the past three days) than he is prescribed. He states that he has also experienced a very fast heart rate at home. He's not had a fever. He occasionally gets chest pain at home, especially when he has a fast heart rate and low blood pressure; today, SBP at home was noted to be 68. He has not suffered hemoptysis or syncope. Patient reports RUQ abd pain, mild nausea but no vomiting. He had a BM today though he's been having trouble with constipation. No difficulty urinating or dysuria or hematuria. He reports worsening lower extremity swelling. Related Data Home Medications ?Medication ?Instructions ?Recorded ?Confirmed acetaminophen 500 mg tablet 1,000 mg PO TID PRN Pain 09/17/19 04/23/25 (Tylenol Extra Strength) cholecalciferol (vitamin D3) 50 2,000 unit PO QAM 09/17/19 04/23/25 mcg (2,000 unit) tablet [id number] 300 mcg-K 60 1 tab PO QAM 09/19/19 04/23/25 mcg-lycop 600 mcg-lutein 300 mcg tablet (Centrum Silver Men) ascorbic acid (vitamin C) 1,000 mg 1,000 mg PO QAM 04/19/22 04/23/25 tablet (Vitamin C) cyanocobalamin (vitamin B-12) 1,000 mcg PO QAM 04/19/22 04/23/25 1,000 mcg tablet (Vitamin B-12) zinc sulfate 50 mg zinc (220 mg) 50 mg PO QAM 06/15/24 04/23/25 tablet amiodarone 200 mg tablet 200 mg PO QAM heart 02/06/25 05/27/25 furosemide 40 mg tablet (Lasix) 40 mg PO QAM 02/06/25 05/27/25 sacubitril 49 mg-valsartan 51 mg 0.5 tab PO .QPM 04/23/25 05/27/25 tablet (Entresto) Previous Rx's ?Medication ?Instructions ?Recorded nitroglycerin 0.4 mg sublingual 0.4 mg sublingual Q5M PRN Chest 08/23/23 tablet (Nitrostat) Pain #25 tabs blood sugar diagnostic (ReliOn #100 ea 02/05/24 Prime Test Strips) tadalafil 5 mg tablet 5 mg PO DAILY Ed, prostate heatlh 06/07/24 #30 tabs canagliflozin 300 mg tablet 300 mg PO QAM #90 tabs 08/14/24 (Invokana) simvastatin 20 mg tablet 20 mg PO BEDTIME #90 tabs 09/25/24 clopidogrel 75 mg tablet 75 mg PO QAM #90 tabs 12/12/24 reliOn [place] test stripts. #100 ea 02/11/25 ranolazine 500 mg tablet,extended 500 mg PO BID #60 tabs 04/03/25 release,12 hr carvedilol 6.25 mg tablet 6.25 mg PO BID #180 tabs 04/23/25 apixaban 5 mg tablet (Eliquis) 5 mg PO BID #180 tabs 05/22/25 escitalopram oxalate 10 mg tablet 10 mg PO QAM #90 tabs 05/27/25 glyburide 5 mg tablet 5 mg PO QAM #90 tabs 05/27/25 pantoprazole 40 mg tablet,delayed 40 mg PO DAILY stomach protection 05/27/25 release #90 tabs tramadol 50 mg tablet 100 mg (2 x 50 mg) PO TID PRN Pain 05/27/25 #180 tabs Allergies Allergy/AdvReac Type Severity Reaction Status Date / Time penicillin G Allergy HIVES Verified 05/27/25 10:02 Penicillins Allergy ALGY-Hives Verified 05/27/25 10:02 propoxyphene (From Allergy VERY SHORT Verified 05/27/25 10:02 Darvocet-N) OF BREATH [facility] ED PFSH: Medical History (Updated 06/17/25 @ 06:43 by Lina Puri MD) Anticoagulation adequate with anticoagulant therapy Atrial fibrillation with controlled ventricular rate Systolic congestive heart failure Type 2 diabetes mellitus, without long-term current use of insulin Adult-onset obesity GERD (gastroesophageal reflux disease) Anxiety PAD (peripheral artery disease) Ischemic cardiomyopathy Primary hypertension Hyperlipidemia CAD (coronary artery disease) Surgical History (Updated 02/10/25 @ 00:00 by KEI Johnson) S/P trigger finger release History of surgery on extremity 12/28/2014: Right groin and femoral artery exploration and primary repair of right femoral artery catheterization site History of carpal tunnel release History of femoropopliteal bypass Left common femoral artery bypass surgery performed by Dr. Carrillo on 12/15/2014 History of umbilical hernia repair History of cholecystectomy History of cardiac radiofrequency ablation Last in November 2024 S/P CABG x 3 GOMEZ to LAD, SVG to OM1, SVG to PDA Coronary angioplasty status 04/25/15: balloon angioplasty to PDA and PLB, GOMEZ to LAD patent, SVG to OM 1 patent, SVG to PDA patent. Prox RCA 60% stenosis. Family History Brother CAD (coronary artery disease) Diabetes Hyperlipidemia Hypertension Mother CAD (coronary artery disease) Cancer Diabetes Hyperlipidemia Hypertension Grandfather Cancer Father Diabetes Hyperlipidemia Hypertension Denies family history of Clotting disorder Dementia Psychiatric illness Chronic kidney disease (CKD) Suicide Anesthesia complication Bleeding disorder Family history of premature coronary artery disease Lung disease Stroke Social History Smoking and tobacco/nicotine status: former use of tobacco/nicotine Alcohol intake: never Substance/Drug Use: never Physical Exam Narrative: EXAM NARRATIVE: Vital signs were reviewed. Patient is alert and oriented. Patient is breathing comfortably, no increased WOB or accessory muscle use. SpO2 is above 92% on RA. Patient has no significant rhonchi or wheezing. Patient is relatively hypotensive and bradycardic on initial exam though this does not persist. Abdomen is distended, mildly tender in the RUQ. Patient is moving all extremities, no deformity or gross injury. +b/l LE pitting edema. Course Vital Signs: Vital signs: Vital Signs Temperature 98 F 06/16/25 20:26 Pulse Rate 90 06/17/25 06:01 Respiratory Rate 18 06/17/25 06:01 Blood Pressure 118/76 06/17/25 06:01 Pulse Oximetry 98 06/17/25 06:01 Oxygen Delivery Me thod Room Air 06/17/25 06:11 MDM - Chest Pain Medical Decision Making 69yo M w/pmhx of CAD, atrial fibrillation on eliquis and amiodarone, CHF (last echo in 2023 shows reduced systolic function w/EF of 35%) w/cc of exertional hypotension, chest pain, shortness of breath, abdominal distension, weight gain, LE swelling despite taking three times usual dose of lasix. Differential diagnosis includes but is not limited to, acute decompensated congestive heart failure, pulmonary hypertension, cor pulmonale, ACS, pneumonia, pleural effusion, A-fib with RVR, other. On exam, patient is relatively hypotensive and bradycardic. This however resolves on repeat reexamination without any intervention. Patient was evaluated with basic lab work including CBC, CMP, troponin, BNP, EKG and chest x-ray. He has a normal white blood cell count. Patient is anemic but this appears to be baseline. Patient has an elevated creatinine in comparison to previous which could signify an DIGNA. Patient has an elevated baseline troponin and BNP of nearly 3000. CXR: IMPRESSION: No focal consolidation, pleural effusion, or pneumothorax. Given his labile blood pressure, irregular heart rate with bradycardia intermittently with A-fib with RVR, increasing shortness of breath, abdominal distention worsening lower extremity swelling, have concern that patient is experiencing worsening of the right heart function. Pulmonary hypertension remains on the differential. Patient was admitted for further workup and inpatient treatment. Lab Data 06/17/25 00:05 06/17/25 00:05 Radiology Impressions Chest X-Ray 06/16/25 23:55 IMPRESSION: No focal consolidation, pleural effusion, or pneumothorax. Laboratory Results WBC 5.89 10^3/uL (3.29-11.43) 06/17/25 00:05 RBC 4.94 10^6/uL (3.85-5.65) 06/17/25 00:05 Hgb 8.40 g/dL (11.27-16.99) L 06/17/25 00:05 Hct 32.0 % (37-53) L 06/17/25 00:05 MCV 64.8 fl (82-101) L 06/17/25 00:05 MCH 17.0 pg (27-33) L 06/17/25 00:05 MCHC 26.3 g/dL (30-55) L 06/17/25 00:05 RDW 20.2 % (12.1-15.1) H 06/17/25 00:05 Plt Count 313 10^3/cmm (157-399) 06/17/25 00:05 MPV 9.6 fL (7.4-10.4) 06/17/25 00:05 Neut % (Auto) 58.8 % 06/17/25 00:05 Lymph % (Auto) 18.0 % 06/17/25 00:05 [place] % (Auto) 16.6 % 06/17/25 00:05 Eos % (Auto) 5.1 % 06/17/25 00:05 Baso % (Auto) 1.2 % 06/17/25 00:05 Neut # (Auto) 3.46 10^3/uL (1.8-7.7) 06/17/25 00:05 Lymph # (Auto) 1.1 10^3/uL (0.8-4.8) 06/17/25 00:05 [place] # (Auto) 1.0 10^3/uL (0.2-0.9) H 06/17/25 00:05 Eos # (Auto) 0.3 10^3/uL (0.0-0.8) 06/17/25 00:05 Baso # (Auto) 0.1 10^3/uL (0.0-0.1) 06/17/25 00:05 Nucleated RBC % (auto) 0 % 06/17/25 00:05 Nucleated RBCs # 0.0 /100WBC 06/17/25 00:05 Sodium 136 mmol/L (136-145) 06/17/25 00:05 Potassium 4.4 mmol/L (3.5-5.1) 06/17/25 00:05 Chloride 99 mmol/L (98-107) 06/17/25 00:05 Carbon Dioxide 27 mmol/L (22-29) 06/17/25 00:05 Anion Gap 14.4 (5-19) 06/17/25 00:05 BUN 21 mg/dL (8-23) 06/17/25 00:05 Creatinine 1.4 mg/dL (0.7-1.2) H 06/17/25 00:05 GFR Calculation 50.2 mL/min (90-130) L 06/17/25 00:05 Glucose 166 mg/dL (65-115) H 06/17/25 00:05 Calculated Osmolality 289 mOsm/kg (285-295) 06/17/25 00:05 Calcium 8.8 mg/dL (8.5-10.5) 06/17/25 00:05 Total Bilirubin 0.7 mg/dL (0.15-1.2) 06/17/25 00:05 AST 26 U/L (0-40) 06/17/25 00:05 ALT 24 U/L (0-41) 06/17/25 00:05 Alkaline Phosphatase 152 U/L (40-130) H 06/17/25 00:05 Troponin T Baseline 30 ng/L (0-15) H 06/17/25 00:05 NT-Pro-B Natriuret Pep 2924 pg/mL (0-125) H 06/17/25 00:05 Total Protein 6.8 g/dL (6.6-8.7) 06/17/25 00:05 Albumin 4.3 g/dL (3.5-5.2) 06/17/25 00:05 Globulin 2.5 g/dL (1.3-4.6) 06/17/25 00:05 All radiology interpretation(s) finalized by discharge EKG Data EKG 1: Computer generated interpretation: Irregularly irregular rhythm, heart rate of 88, normal axis, prolonged QRS, normal QT/QTc, no STEMI. EKG 2: Interpretation: Atrially paced rhythm, heart rate of 84, normal axis, prolonged QRS, normal QTc, no STEMI. Discharge Plan Discharge Patient Disposition: Admitted As Inpatient Admit Provider: Mercedes Riley Clinical Impression: Exertional shortness of breath, CHF (congestive heart failure), Anemia, Hypotension, unspecified, Irregular heart rate, DIGNA (acute kidney injury) Condition: Stable Coding Level of Care Code ED [employer] Director for [facility] [place] Heart Score HEART Score Components History: Slightly Suspicous EKG: Non-specific Changes Age: 65 or more yrs Risk Factors: >/=3 Risk Factors Troponin: Baseline Trop 16-45 ng/L HEART Score RESULT HEART Score: 6
[2025-06-16 23:53] VITALS: BP 94/67; PULSE 48; RESP 16; O2SAT 95
--- NOTE | 2025-06-16 23:55 | XRR_ITS ---
PROCEDURE INFORMATION: Exam: XR Chest Exam date and time: 06/17/2025 12:07 AM Age: 69 years old Clinical indication: Shortness of breath; Prior surgery; Surgery date: 6+ months; Surgery type: Cabg, coronary angioplasty/stents, pacemaker, cardiac ablation TECHNIQUE: Imaging protocol: Radiologic exam of the chest. Views: 1 view. COMPARISON: CR XR chest 1V portable [id number] 02/06/2025 3:31 PM FINDINGS: Tubes, catheters and devices: AICD/pacemaker. Lungs: Unremarkable. No consolidation. Pleural spaces: No focal consolidation, pleural effusion, or pneumothorax. Heart/Mediastinum: No cardiomegaly. Bones/joints: Sternotomy wires. XR/XR chest 1V portable [id number] IMPRESSION: No focal consolidation, pleural effusion, or pneumothorax.
[2025-06-17] VITALS (76 sets, daily range): BP systolic 105–154; BP diastolic 51–95; PULSE 89–116; RESP 3–35; TEMP 36.6–36.9; O2SAT 88–100
[2025-06-17 00:17] LABS: Hematocrit 32.0 % (37-53); Hemoglobin 8.40 g/dL (11.27-16.99); Mean Corpuscular HGB Conc 26.3 g/dL (30-55); Mean Corpuscular Hemoglobin 17.0 pg (27-33); Mean Corpuscular Volume 64.8 fl (82-101); Nucleated Red Blood Cells % 0 %; Platelet Count 313 10^3/cmm (157-399); Red Blood Count 4.94 10^6/uL (3.85-5.65); White Blood Count 5.89 10^3/uL (3.29-11.43)
[2025-06-17 00:47] LABS: Alanine Aminotransferase 24 U/L (0-41); Albumin Level 4.3 g/dL (3.5-5.2); Alkaline Phosphatase 152 U/L (40-130); Anion Gap 14.4 (5-19); Aspartate Amino Transferase 26 U/L (0-40); Blood Urea Nitrogen 21 mg/dL (8-23); Calcium 8.8 mg/dL (8.5-10.5); Carbon Dioxide 27 mmol/L (22-29); Chloride 99 mmol/L (98-107); Creatinine Clr Calc Pharmacy 63.8366; Globulin 2.5 g/dL (1.3-4.6); Glucose 166 mg/dL (65-115); NT Pro B Type Natriuretic Pept 2924 pg/mL (0-125); Osmolality Calculated 289 mOsm/kg (285-295); Potassium 4.4 mmol/L (3.5-5.1); Sodium 136 mmol/L (136-145); Total Protein 6.8 g/dL (6.6-8.7)
[2025-06-17 01:17] LABS: Troponin(5th) Baseline 30 ng/L (0-15)
--- NOTE | 2025-06-17 01:56 | ECG_ITS ---
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 Measurements Intervals [place] Rate: 84 P: 75 NC: 360 QRS: 73 QRSD: 125 T: 146 QT: 414 QTc: 491 Interpretive Statements ELECTRONIC ATRIAL PACEMAKER MODERATE INTRAVENTRICULAR CONDUCTION DELAY [110+ ms QRS DURATION] NONSPECIFIC ST & T-WAVE ABNORMALITY Compared to ECG 06/16/2025 20:33:25 Intraventricular conduction delay now present T-wave abnormality now present Sinus rhythm no longer present Ventricular premature complex(es) no longer present First degree AV block no longer present Myocardial infarct finding no longer present Electronically Signed On 06-17-2025 22:20:52 DIGITAL ASSISTANT by Glory Simpson M.D. [email or web address] [id number]
--- NOTE | 2025-06-17 02:27 | PM.HP ---
Providers/Chief Complaint Admitting Physician: dewayne riley DO--admitted after 12 midnight Primary Care Provider: Teodoro Jon DO Chief Complaint: Dr. Don referral History of Present Illness Dwayne Salinas is a 69 year old male with significant cardiovascular disease multiple CABG four-vessel disease who had been evaluated in [place] a couple of weeks ago presented to the emergency room because of noted low blood pressure that then followed with chest pain. The troponin were positive with positive delta. Cardiology consulted to follow-up with the patient because this is not want to go for stress test. Because of an extensive disease cardiology and now following through 2 get records from [place] to follow through with the next step patient may have to go through another CABG but not till everything is fully evaluated. Review of Systems Narrative: System review is significant for cardiovascular disease process Medications/Allergies Home Medications ?Medication ?Instructions ?Recorded ?Confirmed ?Last Taken ?Type acetaminophen 500 mg tablet 1,000 mg PO TID PRN Pain 09/17/19 06/17/25 06/16/25 19:00 History (Tylenol Extra Strength) cholecalciferol (vitamin D3) 50 2,000 unit PO QAM 09/17/19 06/17/25 06/16/25 08:00 History mcg (2,000 unit) tablet mgltweih-vx-ijuub 300 mcg-K 60 1 tab PO QAM 09/19/19 06/17/25 06/16/25 History mcg-lycop 600 mcg-lutein 300 mcg tablet (Centrum Silver Men) ascorbic acid (vitamin C) 1,000 mg 1,000 mg PO QAM 04/19/22 06/17/25 06/16/25 08:00 History tablet (Vitamin C) cyanocobalamin (vitamin B-12) 1,000 mcg PO QAM 04/19/22 06/17/25 06/16/25 History 1,000 mcg tablet (Vitamin B-12) nitroglycerin 0.4 mg sublingual 0.4 mg sublingual Q5M PRN Chest 08/23/23 06/17/25 Unknown Rx tablet (Nitrostat) Pain #25 tabs blood sugar diagnostic (ReliOn #100 ea 02/05/24 06/17/25 Unknown Rx Prime Test Strips) tadalafil 5 mg tablet 5 mg PO DAILY Ed, prostate heatlh 06/07/24 06/17/25 02/05/25 Rx #30 tabs zinc sulfate 50 mg zinc (220 mg) 50 mg PO QAM 06/15/24 06/17/25 06/16/25 History tablet canagliflozin 300 mg tablet 300 mg PO QAM #90 tabs 08/14/24 06/17/25 06/16/25 08:00 Rx (Invokana) simvastatin 20 mg tablet 20 mg PO BEDTIME #90 tabs 09/25/24 06/17/25 06/16/25 Rx clopidogrel 75 mg tablet 75 mg PO QAM #90 tabs 12/12/24 06/17/25 06/16/25 08:00 Rx amiodarone 200 mg tablet 200 mg PO QAM heart 02/06/25 06/17/25 06/16/25 08:00 History furosemide 40 mg tablet (Lasix) 40 mg PO QAM 02/06/25 06/17/25 06/16/25 09:00 History reliOn [place] test stripts. #100 ea 02/11/25 06/17/25 Unknown Rx ranolazine 500 mg tablet,extended 500 mg PO BID #60 tabs 04/03/25 06/17/25 06/16/25 Rx release,12 hr carvedilol 6.25 mg tablet 6.25 mg PO BID #180 tabs 04/23/25 06/17/25 06/16/25 08:00 Rx sacubitril 49 mg-valsartan 51 mg 0.5 tab PO .QPM 04/23/25 06/17/25 06/16/25 History tablet (Entresto) apixaban 5 mg tablet (Eliquis) 5 mg PO BID #180 tabs 05/22/25 06/17/25 06/16/25 Rx escitalopram oxalate 10 mg tablet 10 mg PO QAM #90 tabs 05/27/25 06/17/25 06/16/25 08:00 Rx glyburide 5 mg tablet 5 mg PO QAM #90 tabs 05/27/25 06/17/25 06/16/25 07:00 Rx pantoprazole 40 mg tablet,delayed 40 mg PO DAILY stomach protection 05/27/25 06/17/25 06/16/25 07:00 Rx release #90 tabs tramadol 50 mg tablet 100 mg (2 x 50 mg) PO TID PRN Pain 05/27/25 06/17/25 Unknown Rx #180 tabs Allergies Allergy/AdvReac Type Severity Reaction Status Date / Time penicillin G Allergy HIVES Verified 05/27/25 10:02 Penicillins Allergy ALGY-Hives Verified 05/27/25 10:02 propoxyphene (From Allergy VERY SHORT Verified 05/27/25 10:02 Darvocet-N) OF BREATH PFSH Acute PFSH: Medical History Anticoagulation adequate with anticoagulant therapy Atrial fibrillation with controlled ventricular rate Systolic congestive heart failure Type 2 diabetes mellitus, without long-term current use of insulin Adult-onset obesity GERD (gastroesophageal reflux disease) Anxiety PAD (peripheral artery disease) Ischemic cardiomyopathy Primary hypertension Hyperlipidemia CAD (coronary artery disease) Surgical History S/P trigger finger release History of surgery on extremity 12/28/2014: Right groin and femoral artery exploration and primary repair of right femoral artery catheterization site History of carpal tunnel release History of femoropopliteal bypass Left common femoral artery bypass surgery performed by Dr. Carrillo on 12/15/2014 History of umbilical hernia repair History of cholecystectomy History of cardiac radiofrequency ablation Last in November 2024 S/P CABG x 3 GOMEZ to LAD, SVG to OM1, SVG to PDA Coronary angioplasty status 04/25/15: balloon angioplasty to PDA and PLB, GOMEZ to LAD patent, SVG to OM 1 patent, SVG to PDA patent. Prox RCA 60% stenosis. Family History Brother CAD (coronary artery disease) Diabetes Hyperlipidemia Hypertension Mother CAD (coronary artery disease) Cancer Diabetes Hyperlipidemia Hypertension Grandfather Cancer Father Diabetes Hyperlipidemia Hypertension Denies family history of Clotting disorder Dementia Psychiatric illness Chronic kidney disease (CKD) Suicide Anesthesia complication Bleeding disorder Family history of premature coronary artery disease Lung disease Stroke Social History Smoking and tobacco/nicotine status: former use of tobacco/nicotine Alcohol intake: never Substance/Drug Use: never Vitals/I&O/Wt Last Vital Signs Temp 98 F 06/16/25 20:26 Pulse 48 L 06/16/25 23:53 Resp 16 06/16/25 23:53 BP 94/67 06/16/25 23:53 Pulse Ox 95 06/16/25 23:53 O2 Del Method Room Air 06/16/25 23:53 Weight last 48 hrs Weight 113.625 kg Physical Exam Narrative: General the patient is in no apparent distress. Very anxious and apprehensive HEENT normocephalic/atraumatic neck neck is supple cardiovascular heart rate is regular lungs are pretty much clear abdomen soft nontender nondistended unremarkable extremities are intact no edema has good pulses neurology has no focality lab studies lab studies reviewed and noted. Data 06/18/25 05:26 06/18/25 05:26 A&P Assessment and plan 1. DIGNA (acute kidney injury): 2. Irregular heart rate: 3. Hypotension, unspecified: 4. Anemia: 5. CHF (congestive heart failure): 6. Exertional shortness of breath: 7. Fatigue: Plan: Chest pain/atrial fibrillation/initial hypotension in the 60s at home - Patient did not experience or is a bit hypotension upon arriving to the emergency room Patient is one with significant disease reference coronary disease. Patient did okay at the time of admission but much problem concerning disease process. Care deferred to cardiology. Patient is not for stress test before alternate care follow cardiology input Heart failure combined diastolic and systolic dysfunction - Diuretics initiated with the Lasix - Echocardiogram ordered and done - Must continue to follow through and optimize DIGNA Medication be renal friendly GI and DVT prophylaxis in place PDMP PDMP Reviewed: Not Reviewed Attestations Medical Necessity Statement*: Patient has been evaluated will need at least 2 midnights to optimize care and to gather the orders for next step in the care of the patient. Coding Level of Care Code Acute Code for g Fwd Diagnoses DIGNA (acute kidney injury) N17.9 Irregular heart rate I49.9 Hypotension, unspecified I95.9 Anemia D64.9 CHF (congestive heart failure) I50.9 Exertional shortness of breath R06.02 Fatigue R53.83
[2025-06-17 02:41] LABS: Troponin 5 2HR 31.60 ng/L (0-15); Troponin 5 2HR Delta 1.60 ABS# (0-10)
[2025-06-17] MEDS: heparin 5,000 unit/mL INJ 1 mL 5000 UNIT SUBCUT (03:05)
--- NOTE | 2025-06-17 09:37 | PM.CONSULT ---
Providers/Reason For Consult Consulting Physician/Specialty*: Dr Italia Morrison, interventional cardiology Reason for Consult*: Worsening shortness of breath, tachycardia Attending Physician: Bree Alejandre MD Primary Care Provider: Teodoro Jon DO History of Present Illness History of Present Illness Dwayne Salinas is a 69 year old male with past medical history of atrial fibrillation/flutter status post ablation in [place], CAD status post CABG (coronary angiogram in January of this year: SVG to RCA was atretic and small caliber, first diagonal significant stenosis treated with stent from the mid LAD into the diagonal, balloon angioplasty of the proximal LAD due to in-stent restenosis-GOMEZ to LAD and SVG to OM patent.), ischemic cardiomyopathy with 40 to 45% as of January, ICD. He underwent cardioversion last week with Dr. Denis, base rate on his ICD was changed to 70 bpm. Since then he has felt fatigued, blood pressure has been low despite reduction of carvedilol and Entresto. He also notes shortness of breath and chest pain with exertion. Denies any ICD shocks. In the last week he has had worsening lower extremity edema, abdominal distention, intermittent orthopnea. Hemoglobin 8.4, history of chronic anemia, similar to his usual range 8-10. Creatinine 1.4 which is his baseline. BNP 2924. Troponin series: 30-> 31. EKG shows atrial pacing, no ischemic ST or T wave changes. Review of Systems Const: Reports: fever(s) and change in weight; Denies: chills, fatigue or diaphoresis Eyes: Denies: change in vision ENMT: Denies: epistaxis Card: Reports: chest pain, dyspnea on exertion and orthopnea; Denies: palpitations, irregular heart rhythm, edema, syncope, pre-syncope or leg pain with exertion Resp: Denies: dyspnea, productive cough or wheezing GI: Denies: nausea, vomiting, hematemesis, hematochezia or melena : Denies: hematuria Musc: Denies: extremity swelling Marcus/Lymph: Denies: easy bruising or easy bleeding Medications/Allergies Home Medications ?Medication ?Instructions ?Recorded ?Confirmed ?Last Taken ?Type acetaminophen 500 mg tablet 1,000 mg PO TID PRN Pain 09/17/19 04/23/25 05/28/24 History (Tylenol Extra Strength) cholecalciferol (vitamin D3) 50 2,000 unit PO QAM 09/17/19 04/23/25 02/06/25 History mcg (2,000 unit) tablet [id number]-lr-[id number] 300 mcg-K 60 1 tab PO QAM 09/19/19 04/23/25 02/06/25 History mcg-lycop 600 mcg-lutein 300 mcg tablet (Centrum Silver Men) ascorbic acid (vitamin C) 1,000 mg 1,000 mg PO QAM 04/19/22 04/23/25 02/06/25 History tablet (Vitamin C) cyanocobalamin (vitamin B-12) 1,000 mcg PO QAM 04/19/22 04/23/25 02/06/25 History 1,000 mcg tablet (Vitamin B-12) nitroglycerin 0.4 mg sublingual 0.4 mg sublingual Q5M PRN Chest 08/23/23 04/23/25 Unknown Rx tablet (Nitrostat) Pain #25 tabs blood sugar diagnostic (ReliOn #100 ea 02/05/24 02/24/25 Unknown Rx Prime Test Strips) tadalafil 5 mg tablet 5 mg PO DAILY Ed, prostate heatlh 06/07/24 04/23/25 02/05/25 Rx #30 tabs zinc sulfate 50 mg zinc (220 mg) 50 mg PO QAM 06/15/24 04/23/25 02/06/25 History tablet canagliflozin 300 mg tablet 300 mg PO QAM #90 tabs 08/14/24 04/23/25 02/06/25 Rx (Invokana) simvastatin 20 mg tablet 20 mg PO BEDTIME #90 tabs 09/25/24 05/27/25 02/05/25 Rx clopidogrel 75 mg tablet 75 mg PO QAM #90 tabs 12/12/24 04/23/25 02/06/25 Rx amiodarone 200 mg tablet 200 mg PO QAM heart 02/06/25 05/27/25 02/06/25 History furosemide 40 mg tablet (Lasix) 40 mg PO QAM 02/06/25 05/27/25 02/06/25 History reliOn Ramona test stripts. #100 ea 02/11/25 02/24/25 Unknown Rx ranolazine 500 mg tablet,extended 500 mg PO BID #60 tabs 04/03/25 04/23/25 Unknown Rx release,12 hr carvedilol 6.25 mg tablet 6.25 mg PO BID #180 tabs 04/23/25 05/27/25 Unknown Rx sacubitril 49 mg-valsartan 51 mg 0.5 tab PO .QPM 04/23/25 05/27/25 Unknown History tablet (Entresto) apixaban 5 mg tablet (Eliquis) 5 mg PO BID #180 tabs 05/22/25 05/27/25 Unknown Rx escitalopram oxalate 10 mg tablet 10 mg PO QAM #90 tabs 05/27/25 05/27/25 Unknown Rx glyburide 5 mg tablet 5 mg PO QAM #90 tabs 05/27/25 05/27/25 Unknown Rx pantoprazole 40 mg tablet,delayed 40 mg PO DAILY stomach protection 05/27/25 05/27/25 Unknown Rx release #90 tabs tramadol 50 mg tablet 100 mg (2 x 50 mg) PO TID PRN Pain 05/27/25 05/27/25 Unknown Rx #180 tabs Allergies Allergy/AdvReac Type Severity Reaction Status Date / Time penicillin G Allergy HIVES Verified 05/27/25 10:02 Penicillins Allergy ALGY-Hives Verified 05/27/25 10:02 propoxyphene (From Allergy VERY SHORT Verified 05/27/25 10:02 Darvocet-N) OF BREATH Current Medications Generic Name Dose Route Start Last Admin Trade Name Freq PRN Reason Stop Dose Admin Heparin Sodium (Porcine) 5,000 unit 06/17/25 02:30 06/17/25 03:05 Heparin 5,000 Unit/Ml Inj 1 Ml SUBCUT 5,000 unit Q12H NELIDA Administration Pantoprazole Sodium 40 mg 06/17/25 05:00 06/17/25 05:[address] 40 Mg Tablet PO 40 mg DAILY NELIDA Administration PFSH Acute PFSH: Medical History Anticoagulation adequate with anticoagulant therapy Atrial fibrillation with controlled ventricular rate Systolic congestive heart failure Type 2 diabetes mellitus, without long-term current use of insulin Adult-onset obesity GERD (gastroesophageal reflux disease) Anxiety PAD (peripheral artery disease) Ischemic cardiomyopathy Primary hypertension Hyperlipidemia CAD (coronary artery disease) Surgical History S/P trigger finger release History of surgery on extremity 12/28/2014: Right groin and femoral artery exploration and primary repair of right femoral artery catheterization site History of carpal tunnel release History of femoropopliteal bypass Left common femoral artery bypass surgery performed by Dr. Carrillo on 12/15/2014 History of umbilical hernia repair History of cholecystectomy History of cardiac radiofrequency ablation Last in November 2024 S/P CABG x 3 GOMEZ to LAD, SVG to OM1, SVG to PDA Coronary angioplasty status 04/25/15: balloon angioplasty to PDA and PLB, GOMEZ to LAD patent, SVG to OM 1 patent, SVG to PDA patent. Prox RCA 60% stenosis. Family History Brother CAD (coronary artery disease) Diabetes Hyperlipidemia Hypertension Mother CAD (coronary artery disease) Cancer Diabetes Hyperlipidemia Hypertension Grandfather Cancer Father Diabetes Hyperlipidemia Hypertension Denies family history of Clotting disorder Dementia Psychiatric illness Chronic kidney disease (CKD) Suicide Anesthesia complication Bleeding disorder Family history of premature coronary artery disease Lung disease Stroke Social History Smoking and tobacco/nicotine status: former use of tobacco/nicotine Alcohol intake: never Substance/Drug Use: never Vitals/I&O/Wt Last Vital Signs Temp 97.8 F 06/17/25 07:30 Pulse 97 06/17/25 09:30 Resp 22 H 06/17/25 09:30 BP 134/71 06/17/25 09:30 Pulse Ox 88 L 06/17/25 09:30 O2 Del Method Room Air 06/17/25 08:46 Weight last 48 hrs Weight 249 lb Weight 250 lb 8 oz Physical Exam Const: COMMON NORMALS: no acute distress and patient oriented x3 GENERAL APPEARANCE: cooperative and comfortable ORIENTATION/CONSCIOUSNESS: Yes awake, Yes oriented to person, Yes oriented to place and Yes oriented to time Chest: COMMONS NORMALS: normal inspection of the chest and normal palpation of entire chest wall CHEST: Yes Symmetrical chest wall rise Resp: COMMON NORMALS: normal respiratory effort, No retractions, No use of accessory muscles and clear to auscultation bilaterally EFFORT & INSPECTION: Yes symmetric chest movement AUSCULTATION: clear to auscultation bilaterally Cardio: COMMON NORMALS: regular rate, regular rhythm, S1 normal heart sound present, S2 normal heart sound present, No gallops present (Cardio), No clicks present (Cardio), No murmurs present (Cardio) and No rub (Cardio) RATE: regular rate RHYTHM: regular rhythm HEART SOUNDS: S1 normal heart sound present and S2 normal heart sound present PERIPHERAL PULSES: radial pulses present Extremity: GENERAL: Yes edema (2+ pitting edema bilateral lower extremities above and below the knee) Neuro: COMMON NORMALS: patient oriented x3 and moves all extremities SENSORIUM/ORIENTATION: Yes oriented to person, Yes oriented to place and Yes oriented to time Data 06/17/25 00:05 06/17/25 00:05 A&P Assessment and plan 1. S/P CABG x 3: 2. History of cardiac radiofrequency ablation: 3. Systolic congestive heart failure: 4. CAD (coronary artery disease): 5. Exertional shortness of breath: 6. Type 2 diabetes mellitus, without long-term current use of insulin: Plan: Will obtain records from [facility] on the cardioversion performed last week as well as any other testing performed. Will add Lasix 80 mg IV twice daily, potassium 20 mEq twice daily. Once he is diuresed we will optimize medications based on blood pressure. PDMP PDMP Reviewed: Not Reviewed Coding Level of Care Code Acute Code for Chg Fwd Diagnoses S/P CABG x 3 Z95.1 History of cardiac radiofrequency ablation Z98.890 Systolic congestive heart failure I50.20 CAD (coronary artery disease) I25.10 Exertional shortness of breath R06.02 Type 2 diabetes mellitus, without long-term current use of insulin E11.9
--- NOTE | 2025-06-17 10:46 | USCV_ITS ---
Dwayne Salinas Age: 69 Gender: M : 1955 Exam Date: 06/17/2025 11:33 Ordering Phys: Tara Morrison MD ([email or web address]) Technologist: SEGUNDO Exam Location: [facility] [place] Indication: Afib BP: 134 / 91 HR: 96 Rhythm: Sinus Technical Quality: Adequate MEASUREMENTS (Male / Female) Normal Values 2D ECHO LV Diastolic Diameter PLAX 6.7 cm 4.2 - 5.9 / 3.9 - 5.3 cm IVS Diastolic Thickness 0.7 cm 0.6 - 1.0 / 0.6 - 0.9 cm IVS Systolic Thickness 0.8 cm LVPW Diastolic Thickness 1.0 cm 0.6 - 1.0 / 0.6 - 0.9 cm LVPW Systolic Thickness 1.2 cm LVOT Diameter 2.0 cm LV Ejection Fraction 2D Teich 16.6 % LV Ejection Fraction MOD 4C 45.0 % LV Ejection Fraction MOD 2C 32.2 % LV Ejection Fraction 2C AL 30.5 % LA Diameter 5.0 cm RA Systolic Volume 4C AL 61.6 ml RA Systolic Volume 4C MOD 60.4 ml LA Sys Volume AL 93.5 cm cubed LA Sys Volume Index AL 38.7 cm cubed/m squared Aorta at Sinotubular Diameter 2.8 cm IVC Diameter 2.4 cm M-MODE LA Ao Ratio MM 1.7 AV Cusp Separation MM 1.4 cm DOPPLER AV Peak Velocity 94.0 cm/s LVOT Peak Velocity 74.0 cm/s AV Area Cont Eq vti 3.6 cm squared AV Area Cont Eq pk 2.5 cm squared MV Peak Velocity 118.0 cm/s MV Area PHT 7.5 cm squared Mitral E to A Ratio 3.1 TR Peak Velocity 241.0 cm/s TR Peak Gradient 23.2 mmHg TV Peak E Velocity 91.0 cm/s PV Peak Velocity 93.0 cm/s FINDINGS Left Ventricle Moderately increased left ventricular cavity size. Severely decreased left ventricular systolic function. Left ventricular ejection fraction is estimated at 35 %. Global left ventricular hypokinesis. Grade II/IV diastolic dysfunction, moderately elevated filling pressures. Right Ventricle Normal right ventricular size and systolic function. Right Atrium Normal right atrial size. Left Atrium Normal left atrial size. IA Septum Normal appearance of the interatrial septum. Mitral Valve Mildly thickened mitral valve. No mitral valve stenosis. Mild mitral valve regurgitation. Aortic Valve Moderate aortic valve calcification. Aortic valve stenosis. Trace aortic valve regurgitation. Tricuspid Valve Normal tricuspid valve structure. No tricuspid valve stenosis or regurgitation. Normal pulmonary pressure. Pulmonic Valve Normal pulmonic valve structure. No pulmonic valve stenosis or regurgitation. Pericardium No pericardial effusion. Aorta Normal diameter of the aortic root and ascending thoracic aorta. IVC Normal IVC diameter. CONCLUSIONS Moderately increased left ventricular cavity size. Severely decreased left ventricular systolic function. Left ventricular ejection fraction is estimated at 35 %. Global left ventricular hypokinesis. Grade II/IV diastolic dysfunction, moderately elevated filling pressures. Mildly thickened mitral valve. No mitral valve stenosis. Mild mitral valve regurgitation. Moderate aortic valve calcification. Aortic valve stenosis. Trace aortic valve regurgitation. Right atrial pressure is around 5 mm of mercury. Tara Morrison MD (Electronically Signed) Final Date: 18 June 2025 09:45 S
[2025-06-17] MEDS: FUROsemide 10 mg/mL SDV 10mL 80 MG IVP (11:24)
--- NOTE | 2025-06-17 13:45 | PC.NURSE ---
Physician COmmunication: ST elevation observed, occuring intermittently and only during a PVC. Patient is not experiencing any symptoms of ACS. Nurse alerted Dr Morrison. No new orders at this time, continue to monitor .
--- NOTE | 2025-06-17 15:37 | PM.MISC ---
Miscellaneous Note Purpose of Documentation: Patient seen and examined. 650 cc urine output. Case discussed with cardiology team. Start Lasix 80 mg IV every 12 hours. Mostly monitor urine output. Kidney function. Holding Entresto due to DIGNA. Resume home doses of carvedilol 6.25 mg p.o. daily for now instead of twice daily. Continue amiodarone 200 mg daily. Continue apixaban 5 mg twice daily. Continue Plavix 75 mg p.o. daily. Insulin sliding scale for diabetes mellitus.
--- NOTE | 2025-06-17 17:03 | PC.NURSE ---
Shift SUmmary: Uneventful shift Rested in bed throughout the day, but u frequently to the bathroom or chair. Low Sinus tach with occasional PVCs. Peripheral and abdominal edema still present, but improved compared to this morning. Urine output: 4,425 mL
[2025-06-18] VITALS (8 sets, daily range): BP systolic 95–130; BP diastolic 53–73; PULSE 81–119; RESP 18–29; TEMP 36.6–36.8; O2SAT 91–97
[2025-06-18] MEDS: FUROsemide 10 mg/mL SDV 10mL 80 MG IVP ×2 (00:13→11:30)
[2025-06-18 05:42] LABS: Hematocrit 31.8 % (37-53); Hemoglobin 8.50 g/dL (11.27-16.99); Mean Corpuscular HGB Conc 26.7 g/dL (30-55); Mean Corpuscular Hemoglobin 17.2 pg (27-33); Mean Corpuscular Volume 64.4 fl (82-101); Nucleated Red Blood Cells % 0 %; Platelet Count 282 10^3/cmm (157-399); Red Blood Count 4.94 10^6/uL (3.85-5.65); White Blood Count 5.88 10^3/uL (3.29-11.43)
[2025-06-18 06:10] LABS: Alanine Aminotransferase 21 U/L (0-41); Albumin Level 3.9 g/dL (3.5-5.2); Alkaline Phosphatase 131 U/L (40-130); Anion Gap 14.9 (5-19); Aspartate Amino Transferase 20 U/L (0-40); Blood Urea Nitrogen 17 mg/dL (8-23); Calcium 8.5 mg/dL (8.5-10.5); Carbon Dioxide 28 mmol/L (22-29); Chloride 100 mmol/L (98-107); Creatinine Clr Calc Pharmacy 72.5528; Globulin 2.7 g/dL (1.3-4.6); Glucose 138 mg/dL (65-115); Magnesium 2.4 mg/dL (1.7-2.3); Osmolality Calculated 292 mOsm/kg (285-295); Potassium 3.9 mmol/L (3.5-5.1); Sodium 139 mmol/L (136-145); Total Protein 6.6 g/dL (6.6-8.7)
[2025-06-18 06:22] LABS: Estmated Average Glucose 166; Hemoglobin A1C 7.4 % (4.0-6.0)
--- NOTE | 2025-06-18 08:37 | P.PN_ITS ---
<Statement entered by Tara Morrison MD - 06/20/25 19:32> Patient was evaluated and cared for in conjunction with an advanced practice practitioner. I personally examined the patient and reviewed the chart and all pertinent data including imaging, telemetry, and laboratory results. I discussed the patient in detail with the advanced practice practitioner. Please see their note for complete H&P testing result and agreed upon plan of care for the patient. Subjective 2 Subjective: He has diuresed well yesterday and overnight, currently -3520mL. Shortness of breath and edema improved. Vitals/I&O/Wt Last Vital Signs Temp 98.3 F 06/18/25 04:00 Pulse 106 H 06/18/25 08:27 Resp 18 06/18/25 04:00 BP 130/73 06/18/25 04:00 Pulse Ox 95 06/18/25 08:27 O2 Del Method Room Air 06/18/25 08:27 06/17/25 06/18/25 06/18/25 22:59 06:59 14:59 Intake Total 640 / 1180 240 / 1180 Output Total 1250 / 6250 1975 / 6250 Balance -610 / -5070 -1735 / -5070 Weight last 48 hrs Weight 237 lb 9.6 oz Weight 249 lb Weight 250 lb 8 oz Physical Exam 2 Const: COMMON NORMALS: no acute distress and patient oriented x3 GENERAL APPEARANCE: cooperative and comfortable ORIENTATION/CONSCIOUSNESS: Yes awake, Yes oriented to person, Yes oriented to place and Yes oriented to time Chest: COMMONS NORMALS: normal inspection of the chest and normal palpation of entire chest wall CHEST: Yes Symmetrical chest wall rise Resp: COMMON NORMALS: normal respiratory effort, No retractions and No use of accessory muscles EFFORT & INSPECTION: Yes symmetric chest movement A USCULTATION: crackles Laterality: left and posterior Cardio: COMMON NORMALS: regular rate, regular rhythm, S1 normal heart sound present, S2 normal heart sound present, No gallops present (Cardio), No clicks present (Cardio), No murmurs present (Cardio) and No rub (Cardio) RATE: r egular rate RHYTHM: regular rhythm HEART SOUNDS: S1 normal heart sound present and S2 normal heart sound present PERIPHERAL PULSES: radial pulses present Extremity: GENERAL: Yes edema (1-2+ pitting edema bilateral LE below knee) Neuro: COMMON NORMALS: patient oriented x3 and moves all extremities S ENSORIUM/ORIENTATION: Yes oriented to person, Yes oriented to place and Yes oriented to time Data 06/18/25 05:26 06/18/25 05:26 A&P Assessment and plan 1. History of cardiac radiofrequency ablation: 2. Systolic congestive heart failure: 3. CAD (coronary artery disease): 4. Atrial fibrillation status post cardioversion: 5. Type 2 diabetes mellitus, without long-term current use of insulin: 6. Anemia: Plan: Continue aggressive diuresis with Lasix 80mg IV BID, carvedilol 6.25mg BID, amiodarone 200mg daily, Plavix, Eliquis, atorvastatin. PDMP PDMP Reviewed: Not Reviewed Attestations 2 Medical Necessity Statement*: medical management heart failure Coding Level of Care Code Acute Code for Chg Fwd Diagnoses History of cardiac radiofrequency ablation Z98.890 Systolic congestive heart failure I50.20 CAD (coronary artery disease) I25.10 Atrial fibrillation status post cardioversion I48.91 Type 2 diabetes mellitus, without long-term current use of insulin E11.9 Anemia D64.9
--- NOTE | 2025-06-18 09:24 | PC.CHAP ---
Pastoral Care Encounter/Spiritual Assessment Type of Contact [] Declined security screener visit [] Patient/Family/Request visit [] Outpatient visit [] Follow-up visit [] Physician referral [] Code/Alert [x] Routine visit [] Staff referral [] Actively dying [] Patient sleeping [] Family support [] [] Out of room [] Palliative care [] [] Receiving care in room [] Pre-surgical visit [] Trauma [] Long length of stay [] ICU visit [] Other: Relational/Emotional Strength [x] Patient feels connected with others/family/visitors/staff [] Distress [] Loneliness/isolation [] Abandonment Spirituality of Patient [x] Person of Herminia [x] Attends Zoroastrianism of their Herm[place] [x] Believes in Prayer [x] Reads Bible or Orthodox materials [] There are Spiritual issues to be addressed Exterminator Helper Interventions [x] Prayer [x] Active listening [x] Non-anxious presence [x] Spiritual/emotional support [] Crisis/trauma care [] Spiritual counseling [] Bereavement support [] Provided bereavement packet [] Provided Bible/devotional materials [] Provided toy/stuffed animal, coloring book to patient or family member [] Provided Communion [] Anointing/Schulter [] Salvation [x] Completed spiritual assessment [] Other: Impact on Illness or Injury [] Angry [] Fearful [] Anxious [] Often cries [] Exhaustion [] Unable to work [] Unable to attend rastafarian [] Unable to walk/stand [] Unable to read [] Unable to drive [] Unable to eat/drink [] Unable to sleep [] Unable to be with family [] Patient intubated [] Other: Summary Time spent with patient 5 min
--- NOTE | 2025-06-18 16:14 | P.PN_ITS ---
Subjective 2 Subjective: No new complaints today. Swelling improving. He feels clinically much better. Medications: Reviewed: Yes Vitals/I&O/Wt Last Vital Signs Temp 98.3 F 06/18/25 04:00 Pulse 119 H 06/18/25 13:52 Resp 22 H 06/18/25 13:52 BP 108/53 06/18/25 13:52 Pulse Ox 94 06/18/25 13:52 O2 Del Method Room Air 06/18/25 08:27 06/18/25 06/18/25 06/18/25 06:59 14:59 22:59 Intake Total 240 / 1180 120 / 120 Output Total 1974 / 0 1500 / 1500 Balance -1735 / -5070 -1380 / -1380 Weight last 48 hrs Weight 107.774 kg Weight 112.945 kg Weight 113.625 kg Physical Exam 2 Narrative: General: No acute distress, AO x3 HEENT: PERRLA, pupils bilaterally equal and reactive, pallors not present Chest: Normal vesicular breath sounds, no added sounds, equal good air entry bilaterally CVS: S1-S2 regular, no murmurs, no tachycardia, no gallops, no rubs Abdomen: Soft, nontender, no organomegaly, bowel sounds present Neuro: No focal deficits, no facial deformity, AO x3, power 5/5 in all limbs Extremities: Improving swelling over bilateral lower extremities Data 06/18/25 05:26 06/19/25 09:47 A&P Assessment and plan 1. DIGNA (acute kidney injury): 2. Irregular heart rate: 3. Hypotension, unspecified: 4. Anemia: 5. CHF (congestive heart failure): 6. Exertional shortness of breath: 7. Fatigue: Plan: June 19, 2025 Clinically feels much better today. Lower extremity edema is improving. Currently saturating well on room air. Continue GEE monitoring, IV diuresis. PDMP PDMP Reviewed: Not Reviewed Attestations 2 Medical Necessity Statement*: Continued need for IV diuresis Coding Level of Care Code Acute Code for [facility] Fwd Diagnoses DIGNA (acute kidney injury) N17.9 Irregular heart rate I49.9 Hypotension, unspecified I95.9 Hypotension type: unspecified hypotension type Anemia D64.9 Anemia type: unspecified type CHF (congestive heart failure) I50.23 Heart failure chronicity: acute on chronic Heart failure type: systolic Exertional shortness of breath R06.02 Fatigue R53.83
--- NOTE | 2025-06-18 22:06 | PC.NURSE ---
Patient refused Atorvastatin, stated he has taken it before and it gave him bad cramps .
[2025-06-19] VITALS: BP 124/68; PULSE 109; RESP 22; O2SAT 93
[2025-06-19] MEDS: FUROsemide 10 mg/mL SDV 10mL 80 MG IVP ×2 (00:11→11:44)
[2025-06-19 04:00] VITALS: BP 126/76; PULSE 98; RESP 19; TEMP 36.8; O2SAT 95
[2025-06-19 07:57] VITALS: BP 129/73; PULSE 95; RESP 19; TEMP 36.6; O2SAT 93
[2025-06-19 10:26] LABS: Anion Gap 15.2 (5-19); Blood Urea Nitrogen 19 mg/dL (8-23); Calcium 8.8 mg/dL (8.5-10.5); Carbon Dioxide 27 mmol/L (22-29); Chloride 96 mmol/L (98-107); Creatinine Clr Calc Pharmacy 72.1202; Glucose 196 mg/dL (65-115); Osmolality Calculated 286 mOsm/kg (285-295); Potassium 4.2 mmol/L (3.5-5.1); Sodium 134 mmol/L (136-145)
--- NOTE | 2025-06-19 11:20 | P.PN_ITS ---
<Statement entered by Tara Morrison MD - 06/20/25 19:30> Patient was evaluated and cared for in conjunction with an advanced practice practitioner. I personally examined the patient and reviewed the chart and all pertinent data including imaging, telemetry, and laboratory results. I discussed the patient in detail with the advanced practice practitioner. Please see their note for complete H&P testing result and agreed upon plan of care for the patient. Subjective 2 Subjective: He has diuresed well overnight, currently -3020mL for 24 hrs, cumulative - 8090mL. He has some residual crackles, needs one more day of IV diuresis. Will increase amiodarone to 200 BID, restart Entresto 24/26mg BID. Vitals/I&O/Wt Last Vital Signs Temp 97.9 F 06/19/25 07:57 Pulse 95 06/19/25 07:57 Resp 19 H 06/19/25 07:57 BP 129/73 06/19/25 07:57 Pulse Ox 93 06/19/25 07:57 O2 Del Method Room Air 06/19/25 07:57 06/18/25 06/19/25 06/19/25 22:59 06:59 14:59 Intake Total 960 / 1080 480 / 480 Output Total 850 / 3850 1500 / 3850 250 / 250 Balance -850 / -2770 -540 / -2770 230 / 230 Weight last 48 hrs Weight 234 lb 11.2 oz Weight 237 lb 9.6 oz Physical Exam 2 Const: COMMON NORMALS: no acute distress and patient oriented x3 GENERAL APPEARANCE: cooperative and comfortable ORIENTATION/CONSCIOUSNESS: Yes awake, Yes oriented to person, Yes oriented to place and Yes oriented to time Chest: COMMONS NORMALS: normal inspection of the chest and normal palpation of entire chest wall CHEST: Yes Symmetrical chest wall rise Resp: COMMON NORMALS: normal respiratory effort, No retractions and No use of accessory muscles EFFORT & INSPECTION: Yes symmetric chest movement A USCULTATION: crackles (bases) Laterality: bilateral and posterior Cardio: COMMON NORMALS: regular rate, regular rhythm, S1 normal heart sound present, S2 normal heart sound present, No gallops present (Cardio), No clicks present (Cardio), No murmurs present (Cardio) and No rub (Cardio) RATE: r egular rate RHYTHM: regular rhythm HEART SOUNDS: S1 normal heart sound present and S2 normal heart sound present PERIPHERAL PULSES: radial pulses present Extremity: NARRATIVE EXTREMITY EXAM: 1+ pitting edema bilat LE below knee Neuro: COMMON NORMALS: patient oriented x3 and moves all extremities S ENSORIUM/ORIENTATION: Yes oriented to person, Yes oriented to place and Yes oriented to time Data 06/18/25 05:26 06/19/25 09:47 A&P Assessment and plan 1. Atrial fibrillation status post cardioversion: 2. Systolic heart failure: 3. History of cardiac radiofrequency ablation: 4. Atherosclerosis of coronary artery of [place] heart without angina pectoris: 5. Type 2 diabetes mellitus, without long-term current use of insulin: 6. Anemia: Plan: Nearing euvolemia, will continue IV Lasix 80 mg BID today, switch to oral Lasix tomorrow prior to probable discharge. He can move to med surg floor. Restarting home dose of Entresto 24/26mg BID today. Increasing amiodarone to 200mg BID to maintain sinus rhythm. PDMP PDMP Reviewed: Not Reviewed Attestations 2 Medical Necessity Statement*: iv diuresis, adjustment of GDMT Coding Level of Care Code Acute Code for Chg Fwd Diagnoses Atrial fibrillation status post cardioversion I48.91 Systolic heart failure I50.20 History of cardiac radiofrequency ablation Z98.890 Atherosclerosis of coronary artery of [place] heart without angina pectoris I25.10 Type 2 diabetes mellitus, without long-term current use of insulin E11.9 Anemia D64.9
[2025-06-19 11:23] VITALS: BP 130/79; PULSE 97; RESP 23; TEMP 36.6; O2SAT 93
--- NOTE | 2025-06-19 11:40 | P.PN_ITS ---
Subjective 2 Subjective: net negative ~7L atthis time, diuesing well, no new complaints. Medications: Reviewed: Yes Vitals/I&O/Wt Last Vital Signs Temp 98.0 F 06/19/25 16:00 Pulse 111 H 06/19/25 16:00 Resp 21 H 06/19/25 16:00 BP 137/75 06/19/25 16:00 Pulse Ox 92 06/19/25 16:00 O2 Del Method Room Air 06/19/25 16:00 06/19/25 06/19/25 06/19/25 06:59 14:59 22:59 Intake Total 960 / 1080 720 / 720 Output Total 1500 / 3850 1250 / 1250 475 / 1725 Balance -540 / -2770 -530 / -530 -475 / -1005 Weight last 48 hrs Weight 106.458 kg Weight 107.774 kg Physical Exam 2 Narrative: General: No acute distress, AO x3 HEENT: PERRLA, pupils bilaterally equal and reactive, pallors not present Chest: Normal vesicular breath sounds, no added sounds, equal good air entry bilaterally CVS: S1-S2 regular, no murmurs, no tachycardia, no gallops, no rubs Abdomen: Soft, nontender, no organomegaly, bowel sounds present Neuro: No focal deficits, no facial deformity, AO x3, power 5/5 in all limbs Extremities: Improving swelling over bilateral lower extremities Data 06/18/25 05:26 06/19/25 09:47 A&P Assessment and plan 1. DIGNA (acute kidney injury): 2. Irregular heart rate: 3. Hypotension, unspecified: 4. Anemia: 5. CHF (congestive heart failure): 6. Exertional shortness of breath: 7. Fatigue: Plan: June 19, 2025 net negative 7 L today, clinically improve. COntinue iv diuresis with planned transition to po tomorrow. Recheck CMP with am labs. Increase coreg to BID dosing, resume entresto, monitor BP trend with these changes PDMP PDMP Reviewed: Not Reviewed Attestations 2 Medical Necessity Statement*: obgoing iv diuresis, optimization of CHF treatment Coding Level of Care Code Acute Code for Chg Fwd Diagnoses DIGNA (acute kidney injury) N17.9 Irregular heart rate I49.9 Hypotension, unspecified I95.9 Hypotension type: unspecified hypotension type Anemia D64.9 Anemia type: unspecified type CHF (congestive heart failure) I50.23 Heart failure chronicity: acute on chronic Heart failure type: systolic Exertional shortness of breath R06.02 Fatigue R53.83
[2025-06-19 16:00] VITALS: BP 137/75; PULSE 111; RESP 21; TEMP 36.7; O2SAT 92
[2025-06-19 23:03] VITALS: BP 137/75; PULSE 97; RESP 20; TEMP 36.5; O2SAT 92
[2025-06-20] MEDS: FUROsemide 10 mg/mL SDV 10mL 80 MG IVP ×2 (00:11→12:52)
[2025-06-20 01:03] VITALS: BP 129/72; PULSE 108; RESP 24; O2SAT 91
[2025-06-20 04:39] LABS: Hematocrit 31.2 % (37-53); Hemoglobin 8.30 g/dL (11.27-16.99); Mean Corpuscular HGB Conc 26.6 g/dL (30-55); Mean Corpuscular Hemoglobin 16.8 pg (27-33); Mean Corpuscular Volume 63.3 fl (82-101); Nucleated Red Blood Cells % 0 %; Platelet Count 289 10^3/cmm (157-399); Red Blood Count 4.93 10^6/uL (3.85-5.65); White Blood Count 5.52 10^3/uL (3.29-11.43)
[2025-06-20 05:01] LABS: Alanine Aminotransferase 15 U/L (0-41); Albumin Level 3.9 g/dL (3.5-5.2); Alkaline Phosphatase 139 U/L (40-130); Anion Gap 17.0 (5-19); Aspartate Amino Transferase 14 U/L (0-40); Blood Urea Nitrogen 20 mg/dL (8-23); Calcium 8.8 mg/dL (8.5-10.5); Carbon Dioxide 28 mmol/L (22-29); Chloride 96 mmol/L (98-107); Creatinine Clr Calc Pharmacy 78.6766; Globulin 3.0 g/dL (1.3-4.6); Glucose 153 mg/dL (65-115); Osmolality Calculated 290 mOsm/kg (285-295); Potassium 4.0 mmol/L (3.5-5.1); Sodium 137 mmol/L (136-145); Total Protein 6.9 g/dL (6.6-8.7)
[2025-06-20 05:34] VITALS: BP 135/78; PULSE 110; RESP 27; O2SAT 94
[2025-06-20 07:37] VITALS: BP 109/60; PULSE 91; RESP 24; TEMP 36.8; O2SAT 92
--- NOTE | 2025-06-20 11:04 | PC.SOCIAL ---
IMM Updated Updated pt on IMM. No questions voiced. Provided pt a copy. Initialed, dated, & timed a copy & placed in chart.
[2025-06-20 11:51] VITALS: BP 100/66; PULSE 101; RESP 25; TEMP 36.4; O2SAT 93
--- NOTE | 2025-06-20 12:33 | P.PN_ITS ---
<Statement entered by Tara Morrison MD - 06/20/25 19:15> Patient was evaluated and cared for in conjunction with an advanced practice practitioner. I personally examined the patient and reviewed the chart and all pertinent data including imaging, telemetry, and laboratory results. I discussed the patient in detail with the advanced practice practitioner. Please see their note for complete H&P testing result and agreed upon plan of care for the patient. Patient is feeling much better he has lost a lot of weight has diuresed very well He thinks he good to go home GENERAL: Patient is alert, awake and oriented x3. HEART: Regular S1 and S2. No murmur, rub or gallop. LUNGS: Clear to auscultate bilaterally. CENTRAL NERVOUS SYSTEM: Grossly nonfocal. EXTREMITIES: Lower extremities with out edema bilaterally. Assessment and plan Acute decompensated systolic heart failure on chronic LV dysfunction moderate to severe Atrial fibrillation status post cardioversion Ischemic cardiomyopathy Switch patient to p.o. Lasix switch Coreg to metoprolol Add Entresto Heart failure education Patient can be discharged home Subjective 2 Subjective: He has been doing well, walking the halls several times today without significant shortness of breath, no chest pain. He has been somewhat tachycardic at rest, in the 90 to 110 bpm range, sinus rhythm. Will change his home medication Coreg 6.25 to metoprolol succinate 37.5 mg daily for better rate control. This will also allow us room and his blood pressure to uptitrate Entresto. For now continue Entresto 24/26 mg 1 tablet twice daily, plans to uptitrate as an outpatient. Vitals/I&O/Wt Last Vital Signs Temp 97.6 F 06/20/25 11:51 Pulse 101 H 06/20/25 11:51 Resp 25 H 06/20/25 11:51 BP 100/66 06/20/25 11:51 Pulse Ox 93 06/20/25 11:51 O2 Del Method Room Air 06/20/25 11:51 06/19/25 06/20/25 06/20/25 22:59 06:59 14:59 Intake Total 240 / 1200 240 / 1200 120 / 120 Output Total 1200 / 4750 2300 / 4750 350 / 350 Balance -960 / -3550 -2060 / -3550 -230 / -230 Weight last 48 hrs Weight 230 lb 8 oz Weight 234 lb 11.2 oz Physical Exam 2 Const: COMMON NORMALS: no acute distress and patient oriented x3 GENERAL APPEARANCE: cooperative and comfortable ORIENTATION/CONSCIOUSNESS: Yes awake, Yes oriented to person, Yes oriented to place and Yes oriented to time Chest: COMMONS NORMALS: normal inspection of the chest and normal palpation of entire chest wall CHEST: Yes Symmetrical chest wall rise Resp: COMMON NORMALS: normal respiratory effort, No retractions, No use of accessory muscles and clear to auscultation bilaterally EFFORT & INSPECTION: Yes symmetric chest movement AUSCULTATION: clear to auscultation bilaterally Cardio: COMMON NORMALS: regular rate, regular rhythm, S1 normal heart sound present, S2 normal heart sound present, No gallops present (Cardio), No clicks present (Cardio), No murmurs present (Cardio) and No rub (Cardio) RATE: r egular rate RHYTHM: regular rhythm HEART SOUNDS: S1 normal heart sound present and S2 normal heart sound present PERIPHERAL PULSES: radial pulses present Extremity: COMMON NORMALS: no pedal edema Neuro: COMMON NORMALS: patient oriented x3 and moves all extremities S ENSORIUM/ORIENTATION: Yes oriented to person, Yes oriented to place and Yes oriented to time Data 06/20/25 03:54 06/20/25 03:54 A&P Assessment and plan 1. Atrial fibrillation status post cardioversion: 2. Systolic heart failure: 3. History of cardiac radiofrequency ablation: 4. S/P CABG x 3: 5. Primary hypertension: 6. Hyperlipidemia: 7. Anemia: Plan: He has diuresed 20 pounds of fluid this admission and is feeling much better. Ready for discharge home. Will change carvedilol to metoprolol succinate 37.5 daily, Lasix 40mg in AM and 20mg at 2PM, continue Eliquis, amiodarone 200 BID. Will schedule follow-up first week July in the cardiology clinic, cancel the appointment on 07/30/2025. Requested that he maintain a log of weight and blood pressure. If he increases weight by more than 3 pounds in 24 hours he is to take an extra Lasix. PDMP PDMP Reviewed: Not Reviewed Attestations 2 Medical Necessity Statement*: DC home Coding Level of Care Code Acute Code for g Fwd Diagnoses Atrial fibrillation status post cardioversion I48.91 Systolic heart failure I50.20 History of cardiac radiofrequency ablation Z98.890 S/P CABG x 3 Z95.1 Primary hypertension I10 Hypertension type: primary hypertension Hyperlipidemia E78.5 Anemia D64.9
[2025-06-20 15:43] VITALS: BP 100/66; PULSE 101; RESP 25; TEMP 36.4; O2SAT 96
--- NOTE | 2025-06-20 16:25 | P.DS_ITS ---
Discharge Providers Date of Admission: 06/17/25 01:34 Date of Discharge: June 20, 2025 Attending Provider at Admission: Mercedes Riley MD Attending Provider at Discharge: Bree Alejandre MD Primary Care Provider: Teodoro Jon DO Diagnoses at Discharge Discharge Diagnosis 1. Atrial fibrillation status post cardioversion: 2. Systolic heart failure: 3. History of cardiac radiofrequency ablation: 4. S/P CABG x 3: 5. Primary hypertension: 6. Other hyperlipidemia: 7. Anemia: Reason for Visit Reason for Visit: Dr. Don referral Hospital Course Hospital Course 69 year old male with past medical history of atrial fibrillation/flutter status post ablation in [place], CAD status post CABG (coronary angiogram in January of this year: SVG to RCA was atretic and small caliber, first diagonal significant stenosis treated with stent from the mid LAD into the diagonal, balloon angioplasty of the proximal LAD due to in-stent restenosis-GOMEZ to LAD and SVG to OM patent.), ischemic cardiomyopathy with 40 to 45% as of January, ICD. He underwent cardioversion last week with Dr. Denis, base rate on his ICD was changed to 70 bpm. Since then he has felt fatigued, blood pressure has been low despite reduction of carvedilol and Entresto. He also notes shortness of breath and chest pain with exertion.In the last week he has had worsening lower extremity edema, abdominal distention, intermittent orthopnea. Patient was admitted to the hospital in view of acute on chronic systolic CHF exacerbation. He was evaluated by cardiology team. Received diuresis with Lasix 80 mg IV every 12 hours. He diuresed well and was net -11 L by the time of discharge. He has been transition to Lasix 40 mg every morning and Lasix 20 mg every afternoon.Carvedilol was changed to metoprolol. Orthostatic vital signs were noted to be within normal limits. Entresto continued. Recommended to follow-up with cardiology as an outpatient. Physical Exam Narrative: General: No acute distress, AO x3 HEENT: PERRLA, pupils bilaterally equal and reactive, pallors not present Chest: Normal vesicular breath sounds, no added sounds, equal good air entry bilaterally CVS: S1-S2 regular, no murmurs, no tachycardia, no gallops, no rubs Abdomen: Soft, nontender, no organomegaly, bowel sounds present Neuro: No focal deficits, no facial deformity, AO x3, power 5/5 in all limbs Discharge Data Studies Completed and Pending Completed Studies During Hospitalization Category Date Time Status XR chest 1V portable [id number] Stat Exams 06/16/25 23:55 Completed CV. echo complete* [id number] Routine Ultrasound 06/17/25 10:46 Completed Radiology Impressions Chest X-Ray 06/16/25 23:55 IMPRESSION: No focal consolidation, pleural effusion, or pneumothorax. Laboratory Results WBC 5.52 10^3/uL (3.29-11.43) 06/20/25 03:54 RBC 4.93 10^6/uL (3.85-5.65) 06/20/25 03:54 Hgb 8.30 g/dL (11.27-16.99) L 06/20/25 03:54 Hct 31.2 % (37-53) L 06/20/25 03:54 MCV 63.3 fl (82-101) L 06/20/25 03:54 MCH 16.8 pg (27-33) L 06/20/25 03:54 MCHC 26.6 g/dL (30-55) L 06/20/25 03:54 RDW 20.1 % (12.1-15.1) H 06/20/25 03:54 Plt Count 289 10^3/cmm (157-399) 06/20/25 03:54 MPV 9.5 fL (7.4-10.4) 06/20/25 03:54 Neut % (Auto) 56.0 % 06/20/25 03:54 Lymph % (Auto) 17.8 % 06/20/25 03:54 Mclean % (Auto) 18.8 % 06/20/25 03:54 Eos % (Auto) 5.6 % 06/20/25 03:54 Baso % (Auto) 1.3 % 06/20/25 03:54 Neut # (Auto) 3.09 10^3/uL (1.8-7.7) 06/20/25 03:54 Lymph # (Auto) 1.0 10^3/uL (0.8-4.8) 06/20/25 03:54 Mclean # (Auto) 1.0 10^3/uL (0.2-0.9) H 06/20/25 03:54 Eos # (Auto) 0.3 10^3/uL (0.0-0.8) 06/20/25 03:54 Baso # (Auto) 0.1 10^3/uL (0.0-0.1) 06/20/25 03:54 Nucleated RBC % (auto) 0 % 06/20/25 03:54 Nucleated RBCs # 0.0 /100WBC 06/20/25 03:54 Sodium 137 mmol/L (136-145) 06/20/25 03:54 Potassium 4.0 mmol/L (3.5-5.1) 06/20/25 03:54 Chloride 96 mmol/L (98-107) L 06/20/25 03:54 Carbon Dioxide 28 mmol/L (22-29) 06/20/25 03:54 Anion Gap 17.0 (5-19) 06/20/25 03:54 BUN 20 mg/dL (8-23) 06/20/25 03:54 Creatinine 1.1 mg/dL (0.7-1.2) 06/20/25 03:54 GFR Calculation 66.4 mL/min (90-130) L 06/20/25 03:54 Glucose 153 mg/dL (65-115) H 06/20/25 03:54 POC Glucose 194 mg/dL (70-110) H 06/20/25 11:26 Estimat Average Glucose 166 06/18/25 05:26 Hemoglobin A1c 7.4 % (4.0-6.0) H 06/18/25 05:26 Calculated Osmolality 290 mOsm/kg (285-295) 06/20/25 03:54 Calcium 8.8 mg/dL (8.5-10.5) 06/20/25 03:54 Magnesium 2.4 mg/dL (1.7-2.3) H 06/18/25 05:26 Total Bilirubin 0.9 mg/dL (0.15-1.2) 06/20/25 03:54 AST 14 U/L (0-40) 06/20/25 03:54 ALT 15 U/L (0-41) 06/20/25 03:54 Alkaline Phosphatase 139 U/L (40-130) H 06/20/25 03:54 Troponin T Baseline 30 ng/L (0-15) H 06/17/25 00:05 Troponin T 120 Minute 31.60 ng/L (0-15) H 06/17/25 02:11 Delta Troponin T 1.60 ABS# (0-10) 06/17/25 02:11 NT-Pro-B Natriuret Pep 2924 pg/mL (0-125) H 06/17/25 00:05 Total Protein 6.9 g/dL (6.6-8.7) 06/20/25 03:54 Albumin 3.9 g/dL (3.5-5.2) 06/20/25 03:54 Globulin 3.0 g/dL (1.3-4.6) 06/20/25 03:54 Vitals Last Vital Signs Temp 97.6 F 06/20/25 15:43 Pulse 101 H 06/20/25 15:43 Resp 25 H 06/20/25 15:43 BP 100/66 06/20/25 15:43 Pulse Ox 96 06/20/25 15:43 O2 Del Method Room Air 06/20/25 11:51 Discharge Plan Discharge Patient Disposition: Home Condition: Stable Prescriptions: New amiodarone [Pacerone] 200 mg Tablet 200 mg PO BID 30 Days Qty: 60 0RF metoprolol succinate 25 mg capsule,sprinkle,ER 24hr 37.5 mg PO DAILY Qty: 30 0RF furosemide [Lasix] 20 mg tablet 20 mg PO .2pm Qty: 30 0RF Continued acetaminophen [Tylenol Extra Strength] 500 mg tablet 1,000 mg PO TID PRN (Reason: Pain) Rx Instructions: takes with 2 tramadol cholecalciferol (vitamin D3) 2,000 unit tablet 2,000 unit PO QAM clopidogrel 75 mg tablet 75 mg PO QAM Qty: 90 3RF Entresto 49-51 mg tablet 0.5 tab PO .QPM pantoprazole 40 mg tablet,delayed release (DR/EC) 40 mg PO DAILY Qty: 90 1RF escitalopram oxalate 10 mg tablet 10 mg PO QAM Qty: 90 1RF glyburide 5 mg tablet 5 mg PO QAM Qty: 90 3RF Rx Instructions: take prior to first meal of the day tramadol 50 mg tablet 100 mg PO TID PRN (Reason: Pain) Qty: 180 5RF nitroglycerin [Nitrostat] 0.4 mg tablet, sublingual 0.4 mg SUBLINGUAL Q5M PRN (Reason: Chest Pain) Qty: 25 2RF Rx Instructions: do not exceed 3 doses per episode (DME) reliOn [place] test stripts. See Rx Instructions .Route .MEDSUPPLY Qty: 100 11RF Rx Instructions: As directed, check blood sugar at least once per day. (DME) ReliOn Prime Test Strips Strip See Rx Instructions .ROUTE .COMPLEX Qty: 100 4RF Dose Instruction: USE 1 TEST STRIP TO BLOOD SUGARS DAILY FOR DIABETES MELLITUS DX E11.9 Rx Instructions: USE 1 TEST STRIP TO BLOOD SUGARS DAILY FOR DIABETES MELLITUS DX E11.9 tadalafil 5 mg tablet 5 mg PO DAILY Qty: 30 3RF Invokana 300 mg tablet 300 mg PO QAM Qty: 90 3RF simvastatin 20 mg tablet 20 mg PO BEDTIME Qty: 90 3RF ranolazine 500 mg tablet extended release 12 hr 500 mg PO BID Qty: 60 0RF Eliquis 5 mg tablet 5 mg PO BID Qty: 180 3RF Centrum Silver Men 300-600-300 mcg Tablet 1 tab PO QAM ascorbic acid (vitamin C) [Vitamin C] 1,000 mg Tablet 1,000 mg PO QAM cyanocobalamin (vitamin B-12) [Vitamin B-12] 1,000 mcg Tablet 1,000 mcg PO QAM furosemide [Lasix] 40 mg tablet 40 mg PO QAM zinc sulfate 50 mg zinc (220 mg) Tablet 50 mg PO QAM Discontinued carvedilol 6.25 mg tablet 6.25 mg PO BID Qty: 180 3RF Rx Instructions: must administer with a meal/food amiodarone 200 mg tablet 200 mg PO QAM Discharge Order = DC NOW: Discharge Order (Routine); Ordered 06/20/25 Ordered By: Bree Alejandre Referrals: Nancy Baltazar FNP [Nurse Practitioner, Cardiology] - 07/16/25 2:45 pm Teodoro Jon DO [Primary Care Provider, Family Practice] - 06/24/25 2:40 pm Patient Instructions: Anemia, Metoprolol (By mouth), Furosemide (By mouth), Amiodarone (By mouth), Fatigue, Heart Failure (DC), Acute Kidney Injury (DC), Hypotension (DC), Opioid Safety, Pain Management, Patient Portal & [place] Instructions Activity Restrictions/Additional Instructions: discontinue coreg start metoprolol succinate 37.5 daily, Take lasix 40mg in AM and 20mg at 2PM Discharge Attestations Time Spent in Discharge Care*: less than 30 min Status at Discharge: Cognitive status at discharge: cognitively intact , Behavioral status at discharge: cooperative , Quality Metrics Clinical Quality Measures [ No reported AMI, CVA or VTE this stay] Coding Level of Care Code Acute Code for Chg Fwd Diagnoses Atrial fibrillation status post cardioversion I48.91 Systolic heart failure I50.20 History of cardiac radiofrequency ablation Z98.890 S/P CABG x 3 Z95.1 Primary hypertension I10 Hypertension type: primary hypertension Other hyperlipidemia E78.49 Hyperlipidemia type: other hyperlipidemia Anemia D64.9
== END 2025-06-20 14:25 | disposition home or self-care (01) | DRG 291 ==
LOC: ER 06-17 02:04 → ER IP 06-17 04:31 → ICU 06-17 05:20 → CSU 06-17 17:50
PROVIDERS: Nurse Practitioner Family; Admitting Provider Internal Medicine; Emergency Provider Emergency Medicine; PCP Family Medicine; Visit Provider Student in an Organized Health Care Education/Training Program
DX: I11.0 Hypertensive heart disease with heart failure (principal); I50.23 Acute on chronic systolic (congestive) heart failure; N17.9 Acute kidney failure, unspecified; I25.10 Atherosclerotic heart disease of native coronary artery without angina pectoris; Z95.1 Presence of aortocoronary bypass graft; Z87.891 Personal history of nicotine dependence; Z82.49 Family history of ischemic heart disease and other diseases of the circulatory system; I48.91 Unspecified atrial fibrillation; Z79.01 Long term (current) use of anticoagulants; Z88.0 Allergy status to penicillin; K21.9 Gastro-esophageal reflux disease without esophagitis; E11.51 Type 2 diabetes mellitus with diabetic peripheral angiopathy without gangrene; F41.9 Anxiety disorder, unspecified; D64.9 Anemia, unspecified; I95.9 Hypotension, unspecified; E66.9 Obesity, unspecified; Z68.32 Body mass index [BMI] 32.0-32.9, adult; Z83.3 Family history of diabetes mellitus; Z83.438 Family history of other disorder of lipoprotein metabolism and other lipidemia; I25.5 Ischemic cardiomyopathy; E78.49 Other hyperlipidemia; Z95.5 Presence of coronary angioplasty implant and graft; Z79.02 Long term (current) use of antithrombotics/antiplatelets; Z79.84 Long term (current) use of oral hypoglycemic drugs
CPT/HCPCS: 36415; 36416; 71045; 80048; 80053; 82962; 83036; 83735; 83880; 84484; 85025; 93005; 93306; 96372; 99285; J1644; J1815; J1938; J9999

== ENCOUNTER 2025-07-04 15:35 | Outpatient (CLI) | payer MEDICARE, OTHER, SELFPAY | END 2025-07-04 15:36 | disposition home or self-care (01) | LOC: LAB 15:38 | PROVIDERS: PCP Family Medicine; Visit Provider Clinical Nurse Specialist Adult Health | DX: I50.23 Acute on chronic systolic (congestive) heart failure (principal) | CPT/HCPCS: 36415; 80053 ==

== ENCOUNTER 2025-07-08 15:09 | Inpatient (IN) | payer MEDICARE, OTHER, SELFPAY ==
[2025-07-08] VITALS (13 sets, daily range): BP systolic 107–132; BP diastolic 58–73; PULSE 70–74; RESP 14–30; TEMP 36.4–36.9; O2SAT 95–99; BMI 34.9
--- NOTE | 2025-07-08 15:16 | XRR_ITS ---
PROCEDURE INFORMATION: Exam: XR Chest Exam date and time: 07/08/2025 3:31 PM Age: 69 years old Clinical indication: Shortness of breath; Additional info: SOB TECHNIQUE: Imaging protocol: Radiologic exam of the chest. Views: 1 view. COMPARISON: CR (CHEST, ) 06/17/2025 12:07 AM FINDINGS: Tubes, catheters and devices: Left chest wall AICD. Lungs: No focal airspace opacity. Pleural spaces: No pneumothorax or large pleural effusion. Heart/Mediastinum: Heart size cannot be accurately assessed in this projection. Bones/joints: Median sternotomy. XR/XR chest 1V portable [id number] IMPRESSION: No acute findings.
--- NOTE | 2025-07-08 15:16 | ECG_ITS ---
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 Measurements Intervals [place] Rate: 71 P: -55 CT: 299 QRS: 64 QRSD: 129 T: 156 QT: 422 QTc: 459 Interpretive Statements SINUS RHYTHM WITH FIRST DEGREE AV BLOCK Compared to ECG 06/17/2025 00:55:30 First degree AV block now present Intraventricular conduction delay no longer present T-wave abnormality no longer present Electronically Signed On 07-10-2025 17:49:45 BUSINESS PROPOSAL REP by Henok Aaron M.D. [email or web address]
--- NOTE | 2025-07-08 15:40 | W.ED.SOB ---
HPI - SOB/Dyspnea General: Chief Complaint: Shortness of Breath/Dyspnea Stated Complaint: retaining fluid, weakness Time Seen by Provider: 07/08/25 15:35 Source: patient Mode of arrival: ambulatory Limitations: no limitations History of Present Illness: HPI Narrative: 69-year-old male has a history of congestive heart failure had a recent admission for fluid overload patient states that over the last 3 to 4 days has been having some increasing extremity swelling along with shortness of breath. States that shortness of breath most worse with exertion. States that some mild chest pains denies any chest pain currently. Related Data Home Medications ?Medication ?Instructions ?Recorded ?Confirmed acetaminophen 500 mg tablet 1,000 mg PO TID PRN Pain 09/17/19 07/08/25 (Tylenol Extra Strength) cholecalciferol (vitamin D3) 50 2,000 unit PO QAM 09/17/19 07/08/25 mcg (2,000 unit) tablet ljylxduk-[id number]-[id number] 300 mcg-K 60 1 tab PO QAM 09/19/19 07/08/25 mcg-lycop 600 mcg-lutein 300 mcg tablet (Centrum Silver Men) ascorbic acid (vitamin C) 1,000 mg 1,000 mg PO QAM 04/19/22 07/08/25 tablet (Vitamin C) cyanocobalamin (vitamin B-12) 1,000 mcg PO QAM 04/19/22 07/08/25 1,000 mcg tablet (Vitamin B-12) zinc sulfate 50 mg zinc (220 mg) 50 mg PO QAM 06/15/24 07/08/25 tablet sacubitril 24 mg-valsartan 26 mg 0.5 tab PO QPM 07/08/25 07/08/25 tablet Previous Rx's ?Medication ?Instructions ?Recorded nitroglycerin 0.4 mg sublingual 0.4 mg sublingual Q5M PRN Chest 08/23/23 tablet (Nitrostat) Pain #25 tabs blood sugar diagnostic (ReliOn #100 ea 02/05/24 Prime Test Strips) tadalafil 5 mg tablet 5 mg PO DAILY Ed, prostate heatlh 06/07/24 #30 tabs canagliflozin 300 mg tablet 300 mg PO QAM #90 tabs 08/14/24 (Invokana) simvastatin 20 mg tablet 20 mg PO BEDTIME #90 tabs 02/12/25 clopidogrel 75 mg tablet 75 mg PO QAM #90 tabs 12/12/24 reliOn [place] test stripts. #100 ea 02/11/25 ranolazine 500 mg tablet,extended 500 mg PO BID #60 tabs 04/03/25 release,12 hr apixaban 5 mg tablet (Eliquis) 5 mg PO BID #180 tabs 05/22/25 glyburide 5 mg tablet 5 mg PO QAM #90 tabs 05/27/25 pantoprazole 40 mg tablet,delayed 40 mg PO DAILY stomach protection 05/27/25 release #90 tabs tramadol 50 mg tablet 100 mg (2 x 50 mg) PO TID PRN Pain 05/27/25 #180 tabs metoprolol succinate 25 mg capsule 37.5 mg (1.5 x 25 mg) PO DAILY #45 06/27/25 sprinkle, ext. release 24 hr ea furosemide 20 mg tablet (Lasix) 20 - 40 mg (1 - 2 x 20 mg) PO .2pm 07/04/25 #60 tabs furosemide 40 mg tablet (Lasix) 40 - 80 mg (1 - 2 x 40 mg) PO QAM 07/04/25 #60 tabs amiodarone 200 mg tablet (Pacerone) 200 mg PO BID 30 days #60 tabs 07/07/25 escitalopram oxalate 10 mg tablet 10 mg PO QAM #90 tabs 07/07/25 Allergies Allergy/AdvReac Type Severity Reaction Status Date / Time penicillin G Allergy HIVES Verified 07/08/25 15:19 Penicillins Allergy ALGY-Hives Verified 07/08/25 15:19 propoxyphene (From Allergy VERY SHORT Verified 07/08/25 15:19 Darvocet-N) OF BREATH Review of Systems Resp: Reports: dyspnea PFSH ED PFSH: Medical History (Updated 07/08/25 @ 16:55 by Meaghan Hendrix MD) Anticoagulation adequate with anticoagulant therapy Atrial fibrillation with controlled ventricular rate Systolic congestive heart failure Type 2 diabetes mellitus, without long-term current use of insulin Adult-onset obesity GERD (gastroesophageal reflux disease) Anxiety PAD (peripheral artery disease) Ischemic cardiomyopathy Primary hypertension Hyperlipidemia CAD (coronary artery disease) Surgical History S/P trigger finger release History of surgery on extremity 12/28/2014: Right groin and femoral artery exploration and primary repair of right femoral artery catheterization site History of carpal tunnel release History of femoropopliteal bypass Left common femoral artery bypass surgery performed by Dr. Carrillo on 12/15/2014 History of umbilical hernia repair History of cholecystectomy History of cardiac radiofrequency ablation Last in November 2024 S/P CABG x 3 GOMEZ to LAD, SVG to OM1, SVG to PDA Coronary angioplasty status 04/25/15: balloon angioplasty to PDA and PLB, GOMEZ to LAD patent, SVG to OM 1 patent, SVG to PDA patent. Prox RCA 60% stenosis. Family History Brother CAD (coronary artery disease) Diabetes Hyperlipidemia Hypertension Mother CAD (coronary artery disease) Cancer Diabetes Hyperlipidemia Hypertension Grandfather Cancer Father Diabetes Hyperlipidemia Hypertension Denies family history of Clotting disorder Dementia Psychiatric illness Chronic kidney disease (CKD) Suicide Anesthesia complication Bleeding disorder Family history of premature coronary artery disease Lung disease Stroke Social History Smoking and tobacco/nicotine status: former use of tobacco/nicotine Alcohol intake: never Substance/Drug Use: never Physical Exam Const: COMMON NORMALS: patient oriented x3 HENMT: COMMON NORMALS: normocephalic and atraumatic HEAD & SCALP: normocephalic and atraumatic Eye: COMMON NORMALS: conjunctivae normal CONJUNCTIVA: Yes conjunctivae normal Neck/C-Spine: COMMON NORMALS: full ROM and supple Chest: COMMONS NORMALS: normal inspection of the chest Resp: COMMON NORMALS: No retractions and No use of accessory muscles Cardio: COMMON NORMALS: regular rate, regular rhythm and No murmurs present (Cardio) RATE: regular rate RHYTHM: regular rhythm GI: COMMON NORMALS: Normal to inspection, nondistended, normoactive bowel sounds present, Soft to palpation, non-tender and no masses PALPATION: Yes Soft to palpation Extremity: COMMON NORMALS: full ROM NARRATIVE EXTREMITY EXAM: 2+ edema le Neuro: COMMON NORMALS: patient oriented x3, moves all extremities and no focal motor deficits Psych: COMMON NORMALS: mental status grossly normal, Normal thought process present and cooperative THOUGHT PROCESS: Normal thought process present Skin: COMMON NORMALS: no rashes or lesions noted and no wounds GENERAL SKIN EXAM: no rashes or lesions noted Course Vital Signs: Vital signs: Vital Signs Temperature 97.6 F 07/08/25 15:13 Pulse Rate 70 07/08/25 16:37 Respiratory Rate 14 07/08/25 15:13 Blood Pressure 117/58 07/08/25 16:37 Pulse Oximetry 95 07/08/25 16:37 Oxygen Delivery Me thod Room Air 07/08/25 16:37 MDM - SOB/Dyspnea Medical Decision Making 69-year-old male that presented here with generalized weakness of the last 2 days along with shortness of breath does have a history of congestive heart failure. Differential included pulm emboli, ACS, congestive heart failure. Patient has no signs of ACS here he had no chest pain did interpret his EKG that showed normal sinus rhythm heart rate [address] elevation QRS 129 QTc 459. Patient had no hypoxia here no signs of pulm emboli x-ray here showed no signs of CHF exacerbation. Patient was found to be anemic here that hemoglobin is 6.9 has some chronic anemia. Patient has had normal vital signs here will transfuse 1 unit of blood did speak to hospitalist Dr. Chapa and will admit for observation Medical Records I reviewed the patient's medical records. Lab Data I reviewed the patient's lab results. 07/08/25 15:46 07/08/25 15:46 Labs/Radiology: Radiology Impressions Chest X-Ray 07/08/25 15:16 IMPRESSION: No acute findings. Laboratory Results WBC 5.89 10^3/uL (3.29-11.43) 07/08/25 15:46 RBC 4.04 10^6/uL (3.85-5.65) 07/08/25 15:46 Hgb 6.90 g/dL (11.27-16.99) L 07/08/25 15:46 Hct 25.9 % (37-53) L 07/08/25 15:46 MCV 64.1 fl (82-101) L 07/08/25 15:46 MCH 17.1 pg (27-33) L 07/08/25 15:46 MCHC 26.6 g/dL (30-55) L 07/08/25 15:46 RDW 21.5 % (12.1-15.1) H 07/08/25 15:46 Plt Count 265 10^3/cmm (157-399) 07/08/25 15:46 MPV 9.0 fL (7.4-10.4) 07/08/25 15:46 Neut % (Auto) 67.4 % 07/08/25 15:46 Lymph % (Auto) 11.5 % 07/08/25 15:46 [place] % (Auto) 16.3 % 07/08/25 15:46 Eos % (Auto) 2.7 % 07/08/25 15:46 Baso % (Auto) 1.4 % 07/08/25 15:46 Neut # (Auto) 3.97 10^3/uL (1.8-7.7) 07/08/25 15:46 Lymph # (Auto) 0.7 10^3/uL (0.8-4.8) L 07/08/25 15:46 [place] # (Auto) 1.0 10^3/uL (0.2-0.9) H 07/08/25 15:46 Eos # (Auto) 0.2 10^3/uL (0.0-0.8) 07/08/25 15:46 Baso # (Auto) 0.1 10^3/uL (0.0-0.1) 07/08/25 15:46 Nucleated RBC % (auto) 0.3 % 07/08/25 15:46 Nucleated RBCs # 0.0 /100WBC 07/08/25 15:46 Sodium 133 mmol/L (136-145) L 07/08/25 15:46 Potassium 4.1 mmol/L (3.5-5.1) 07/08/25 15:46 Chloride 97 mmol/L (98-107) L 07/08/25 15:46 Carbon Dioxide 24 mmol/L (22-29) 07/08/25 15:46 Anion Gap 16.1 (5-19) 07/08/25 15:46 BUN 24 mg/dL (8-23) H 07/08/25 15:46 Creatinine 1.5 mg/dL (0.7-1.2) H 07/08/25 15:46 GFR Calculation 46.4 mL/min (90-130) L 07/08/25 15:46 Glucose 214 mg/dL (65-115) H 07/08/25 15:46 Calculated Osmolality 286 mOsm/kg (285-295) 07/08/25 15:46 Calcium 8.3 mg/dL (8.5-10.5) L 07/08/25 15:46 Total Bilirubin 1.3 mg/dL (0.15-1.2) H 07/08/25 15:46 AST 20 U/L (0-40) 07/08/25 15:46 ALT 14 U/L (0-41) 07/08/25 15:46 Alkaline Phosphatase 136 U/L (40-130) H 07/08/25 15:46 Troponin T Baseline 16 ng/L (0-15) H 07/08/25 15:46 NT-Pro-B Natriuret Pep 2764 pg/mL (0-125) H 07/08/25 15:46 Total Protein 6.2 g/dL (6.6-8.7) L 07/08/25 15:46 Albumin 3.8 g/dL (3.5-5.2) 07/08/25 15:46 Globulin 2.4 g/dL (1.3-4.6) 07/08/25 15:46 Crossmatch See Detail 07/08/25 16:19 All radiology interpretation(s) finalized by discharge EKG Data EKG 1: I personally reviewed and interpreted this EKG as follows: EKG Interpretation Date: 07/08/25 EKG interpretation time: 15:24 Interpretation: nsr hr [address] elevation qrs 129 qtc 459 Discharge Plan Discharge Patient Disposition: Admitted As Inpatient Clinical Impression: Anemia, Systolic congestive heart failure Condition: Stable Coding Level of Care Code ED Chief Lock Operator for Chaparro Myers
--- OUTSIDE RECORDS SUMMARY | 2025-07-08 15:42 | XMS_ITS | Encounter Summary ---
Author Organization [facility] Address [address] 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
--- OUTSIDE RECORDS SUMMARY | 2025-07-08 15:42 | XMS_ITS | Encounter Summary ---
Author Organization [facility] Address [address] 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
--- OUTSIDE RECORDS SUMMARY | 2025-07-08 15:42 | XMS_ITS | Encounter Summary ---
Author Organization [employer] [facility] Address [address] [place] [address] Care Team Providers Care Medical Sales Associate Name Role Phone Teodoro Jon DO Primary Care Provider [phone] Encounter Details Date Type Department Care Team (Latest Contact Info) Description 11/22/2001 Outpatient Historical [facility] Audie Rosales Jr., MD [address] [place] [phone] HYPERTENSION NOS (Primary Dx); OSTEOARTHROS NOS-UNSPEC; OBESITY NOS Social History Tobacco Use Types Packs/Day Years Used Date Smoking Tobacco: Never Assessed Sex and Gender Information Value Date Recorded Sex Assigned at Not on file 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
--- OUTSIDE RECORDS SUMMARY | 2025-07-08 15:42 | XMS_ITS | Encounter Summary ---
Author Organization [facility] Address [address] [place] [address] Care Team Providers Care Facilities Administrator Name Role Phone Teodoro Jon DO Primary Care Provider Reason for Referral * Outpatient Services (Routine) - Closed Specialty Diagnoses / Procedures Referred By Contac t Referred To Contact Diagnoses Abnormal echocardiogram Congestive heart failure, unspecified CAD (coronary artery disease) Procedures MRI CARDIAC INTERPRETATION Scottie Valiente MD [address] [place] [id number] Phone: tel: fax: Referral ID Status Reason Start Date Expiration Date Visits Re quested Visits Authorized [id number] Closed 09/24/2013 10/25/2014 1 1 [place] PROJECT MERCHANDISER Encounter Details Date Type Department Care Team (Latest Contact Info) Description 09/24/2013 [facility]illary Orders [facility] [address] [place] [address] Scottie Valiente MD [address] [place] [address] Abnormal echocardiogram (Primary Dx); Congestive heart failure, unspecified (CMS/HCC); CAD (coronary artery disease) Social History Tobacco Use Types Packs/Day Years Used Date Smoking Tobacco: Former Cigarettes 1.5 0 0 10/14/1984 - 10/14/1984 Smokeless Tobacco: Former Quit: 10/14/1984 Alcohol Use Standard Drinks/Week Comments No 0 (1 standard drink = 0.6 oz pur e alcohol) Sex and Gender Information Value Date Recorded Sex Assigned at Not on file Legal Sex Male 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 Exam: MRI CARDIAC INTERPRETATION Date/Time of Exam: Sep 24, 2013 01:22:34 PM Reason For Exam: Nonspecific (abnormal) findings on radiological and other examination of other intrathoracic organs. Examination was performed for evaluation by cardiology. Initial it security administrator images nonspecific. GRISEL/evette 1337 PM - uploaded from [employer] - Procedure Note David Russo MD - 09/24/2013 IMPRESSION - see report below. Exam: MRI CARDIAC INTERPRETATION Date/Time of Exam: Sep 24, 2013 01:22:34 PM Reason For Exam: Nonspecific (abnormal) findings on radiological and other examination of other intrathoracic organs. Examination was performed for evaluation by cardiology. Initial it security administrator images nonspecific. GRISEL/evette 1337 PM - uploaded from [employer] - us Scottie Cecily Valiente MD MR ORDERABLES Final Result INTERFACE SYSTEM Refer to clinic/hospital department documented in this encounter Visit Diagnoses Diagnosis Abnormal echocardiogram- Primary Nonspecific (abnormal) findings on radiological and other examination of other intrathoracic organs Congestive heart failure, unspecified CAD (coronary artery disease) Coronary atherosclerosis of unspecified type of vessel, prairie band or graft Abnormal echocardiogram Nonspecific (abnormal) findings on radiological and other examination of other intrathoracic organs Congestive heart failure, unspecified CAD (coronary artery disease) Coronary atherosclerosis of unspecified type of vessel, prairie band or graft documented in this encounter Care Teams Facilities Administrator Relationship Specialty Start Date End Date Teodoro Jon DO [address] [place] [phone] PCP - General Family Practice 03/19/20 documented as of this encounter
--- OUTSIDE RECORDS SUMMARY | 2025-07-08 15:42 | XMS_ITS | Encounter Summary ---
Author Organization [facility] Address [address] [place] [address] Care Team Providers Care Welding Equipment Repairer Name Role Phone Teodoro Jon DO Primary Care Provider [phone] Encounter Details Date Type Department Care Team (Late st Contact Info) Description 08/01/2002 Outpatient Historical [facility] [address] [place] [address] Audie Rosales Jr., MD [address] [place] [phone] Social History Tobacco Use Types Packs/Day Years Used Date Smoking Tobacco: Never Assessed Sex and Gender Information Value Date Recorded Sex Assigned at Not on file Legal Sex 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
--- OUTSIDE RECORDS SUMMARY | 2025-07-08 15:42 | XMS_ITS | Encounter Summary ---
Author Organization [employer] 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
--- OUTSIDE RECORDS SUMMARY | 2025-07-08 15:42 | XMS_ITS | Clinical Summary ---
Author Organization [facility] Address [address] [place] [address] Care Team Providers Care Sawmill Equipment Operator Name Role Phone DontrellTeodoro Deidra VILLANUEVA Primary Care Provider [phone] Allergies Active Allergy Reactions Criticality Noted Date Comments Penicillins Hives High 01/14/2013 Propoxyphene N-Acetaminophen Shortness o f Breath/Wheezing High 01/14/2013 Medications sildenafiL (VIAGRA) 25 mg tablet Take 20 mg by mouth 1 time daily as needed for Erectile Dysfunction. 08/29/19 20 Active cholecalcifero l, Vitamin D3, 50 mcg (2,000 unit) Tablet [...] 25mg am and 25mg pm, Reported on 06/30/2025 spironolactone (ALDACTONE) 25 mg tablet Take 12.5 [...] for Chest Pain. 25 Tablet 3 03/31/20 Active apixaban (ELIQUIS) 5 mg tablet Take 1 Tablet (5 mg) by mouth 2 times daily. 60 Tablet 11 04/25/20 Active clopidogreL (PLAVIX) 75 mg Tablet Take 75 mg by mouth daily. 05/23/20 Active ascorbic acid (vitamin C) 1,000 mg tablet (VITAMIN C) Take 1,000 mg by mouth daily. Active cyanocobalamin (vit B-12) 1,000 mcg tablet Take 1,000 mcg by mouth daily. Active ZINC ORAL Take 50 mg by mouth. Active albuterol sulfate HFA 90 mcg/actuation aerosol inhaler 10/05/19 Active furosemide (LASIX) 40 mg tablet Take 40 mg by mouth daily. 11/24/19 Active multivitamin tablet Take 1 Tablet by [...] mg 1 time daily as needed. Active metoprolol succinate (TOPROL XL) 25 mg Extended Release 24 hour tablet Take 1.5 Tablets by mouth daily. 06/20/20 25 Active sacubitriL-cynthia sartan (ENTRESTO) 24-26 mg Tablet Take 1 Tablet by mouth 2 times daily. 200 Tablet 3 06/30/20 25 Active sacubitriL-cynthia sartan (Entresto) 49-51 mg Tablet Take 1 Tablet by mouth 2 times daily. 60 Tablet 11 11/30/19 23 025 Discontinued(A lternate therapy prescribed) amiodarone (CORDARONE) 400 mg TabletIndicati ons:Atrial fibrillation, unspecified type (CMS/HCC) Take 0.5 Tablets (200 mg) by mouth daily. 30 Tablet 11 07/03/20 24 025 Discontinued Active Problems Problem Noted Date [...] Encounters Date Type Department Care Team Description 07/01/2025 External Device Data STL ABSTRACTION Provider, Abstract 07/01/2025 External Device Data STL ABSTRACTION Provider, Abstract 06/30/2025 12:45 PM RESIDENT ADVISOR Procedure visit [place] [address] [place] [phone] Ana Denis MD VT (ventricular tachycardia) (CMS/HCC) (Primary Dx); Ischemic cardiomyopathy 06/30/2025 12:45 PM RESIDENT ADVISOR Office Visit [facility] [address] [place] [phone] Ana Denis MD Persistent atrial fibrillation (CMS/HCC) (Primary Dx); Ischemic cardiomyopathy; VT (ventricular tachycardia) (CMS/HCC); S/P ablation of atrial fibrillation; ICD (implantable cardioverter-defibril lator), dual, in situ [Z95.810] 06/24/2025 External Device Data STL ABSTRACTION Provider, Abstract 06/23/2025 Orders Only [facility] [address] [place] [phone] Ana Denis MD Atrial fibrillation, unspecified type (CMS/HCC) (Primary Dx); VT (ventricular tachycardia) (CMS/HCC); Ischemic cardiomyopathy 06/11/2025 12:29 PM CDT - 06/11/2025 12:56 PM CDT Surgery [facility] Cardiac Hvac Maintenance Technician [address] [place] [phone] Ana Denis MD Cardioversion 06/11/2025 9:48 AM CDT - 06/11/2025 2:33 PM CDT Hospital Encounter [facility] [address] [place] [address] Ana Denis MD A-fib (CMS/HCC) Discharge Disposition: Home or Self Care 06/04/2025 Prep for Surgery [place] [address] [place] [phone] Ana Denis MD Persistent atrial fibrillation (CMS/HCC) (Primary Dx) 06/04/2025 Telephone [place] [address] [place] [phone] Joyce Kennedy RN Procedure 06/03/2025 9:15 AM CDT Procedure visit [place] [address] [place] [phone] Ana Denis MD VT (ventricular tachycardia) (CMS/HCC) (Primary Dx); Ischemic cardiomyopathy 06/03/2025 9:15 AM CDT Office Visit [place] [address] [place] [phone] Ana Denis MD Ischemic dilated cardiomyopathy (CMS/HCC) (Primary Dx); S/P ablation of atrial fibrillation; Persistent atrial fibrillation (CMS/HCC); Atrial fibrillation, unspecified type (CMS/HCC) 05/28/2025 Orders Only [place] [address] [place] [phone] Ana Denis MD Benign hypertension (Primary Dx) 05/22/2025 Telephone [place] [address] [place] [phone] Joyce Kennedy RN Procedure 05/22/2025 Telephone [place] [address] [place] [phone] Joyce Kennedy RN Abnormal Cardiovascular Test 05/21/2025 8:00 AM CDT Procedure visit [place] [address] [facility] [address] [place] [phone] VT (ventricular tachycardia) (CMS/HCC) (Primary Dx); Ischemic dilated cardiomyopathy (CMS/HCC); Atrial fibrillation, unspecified type (CMS/HCC); Automatic implantable cardioverter-defibril lator in situ 05/16/2025 1:38 PM CDT - 05/16/2025 11:59 PM CDT Hospital Encounter [facility] Respiratory Therapy [facility] [place] [address] [place] [phone] Ana Denis MD Discharge Disposition: Home or Self Care 04/29/2025 External Device Data STL ABSTRACTION Provider, Abstract 04/28/2025 8:00 AM CDT Procedure visit [place] [address] [facility] [address] [place] [phone] Ischemic dilated cardiomyopathy (CMS/HCC) (Primary Dx); VT (ventricular tachycardia) (CMS/HCC); Atrial fibrillation, unspecified type (CMS/HCC); Automatic implantable cardioverter-defibril lator in situ from Last 3 Months Immunizations Immunization Administration Dates Next Due (PNEUMOVAX 23)(50 YRS UP) PN EUMOCOCCAL POLYSACCHARIDE (PPV23) 0.5 ML, IM 05/12/2015,10/30/2002 (SHINGRIX)(50 YRS UP) ZOSTER VACCINE RECOMBINANT, 0.5 ML, IM 09/05/2022 (VAXNEUVANCE)(2-15 MOS)(18 Y RS UP) PNEUMOCOCCAL CONJUGATE (PCV15), POLYSACCHARIDE [id number] CONJUGATE, ADJUVANT, PED 4 DOSE/ADULT 1 DOSE [...] Used Date Smoking Tobacco: Former Cigarettes 1.5 Q uit: 10/14/1984 Smokeless Tobacco: Former Quit: [...] on file Legal Sex Male 4:49 PM RESIDENT ADVISOR Gender Identity Not on file Sexual Orientation Not on file Last Filed Vital Signs Vital Sign Reading Time Taken Comments Blood Pressure 120/62 06/30/2025 12:53 PM RESIDENT ADVISOR Pulse 81 06/30/2025 12:53 PM RESIDENT ADVISOR Temperature 36.3 C (97.4 F) 06/11/2025 10:00 AM CDT Respiratory Rate 22 06/11/2025 2:00 PM CDT Oxygen Saturation 97% 06/11/2025 2:00 PM CDT Inhaled Oxygen Concentration - - Weight 113.5 kg (250 lb 3.2 oz) 025 12:53 PM RESIDENT ADVISOR Height 180.3 cm (5' 11 ) 06/30/2025 12: 53 PM RESIDENT ADVISOR Body Mass Index 34.9 06/30/2025 12:53 PM RESIDENT ADVISOR Plan of Treatment Upcoming Encounters Date Type Department Care Team (Late st Contact Info) Description 09/08/2025 10:40 AM RESIDENT ADVISOR Office Visit [facility] [address] [facility] [address] [place] [phone] Ana Denis MD [address] [facility] [address] [place] [phone] Rayray May ANP [address] [facility] [address] [place] [phone] 10/09/2025 8:00 AM RESIDENT ADVISOR Procedure visit [facility] [address] [facility] [address] [place] [phone] Ana Denis MD [address] [facility] [address] [place] [phone] Health Maintenance Due Date Last Done [...] 08/15, 09/25/2015 Medical Devices Implanted Type Area Tour Narrator Device Identifier Shelf Expiration Date Model / Serial / Lot Defib Icd Four States Xt Mri [id number] Dual Chmbr Surescan [id number] - [id number] Implanted:Qty: 1 on 11/01/2023 by Ana Denis MD at [facility] Defibrillator N/A: Chest [employer]- CARD RHYTHM MGMT [id number] 03/10/2025 [id number] / [id number] 8S / Lead Sprint Quattro 62cm 6947m-62 - Csc - [id number] Implanted:Qty: 1 on 11/01/2023 by Ana Denis MD at [facility] Lead N/A: Chest [employer]- CRM - BULK BUY [id number] 05/18/2024 [id number] / [id number] 5V / Lead Capsurefix Novus Mri 52cm Endocardial Pacing 5076-52 - [id number] Implanted:Qty: 1 on 11/01/2023 by Ana Denis MD at [facility] Lead N/A: Chest [employer]- CRM - BULK BUY [id number] 07/26/2025 5076-52 / [id number] 9V / Procedures Procedure Name Priority Date/Time Associated Diagnosis Comments AK PRGRMG EVAL IMPLANTABLE IN PRSN DUAL LEAD DFB Routine 07/03/2025 7:24 AM RESIDENT ADVISOR VT (ventricular tachycardia) (CMS/HCC) Ischemic cardiomyopathy AK ECG ROUTINE ECG W/LEAST 12 LDS W/I&R Routine 06/30/2025 1:27 PM RESIDENT ADVISOR Atrial fibrillation, unspecified type (CMS/HCC) VT (ventricular tachycardia) (CMS/HCC) Ischemic cardiomyopathy CARDIOVERSION Routine 06/11/2025 12:52 PM CDT A-fib (CMS/HCC) DIFFERENTIAL, MANUAL Routine 06/11/2025 10:25 AM CDT BASIC METABOLIC PANEL Routine 06/11/2025 10:25 AM CDT PROTIME-INR Routine 06/11/2025 10:25 AM CDT CBC WITH DIFFERENTIAL Routine 06/11/2025 10:25 AM CDT EKG 12-LEAD Routine 06/11/2025 10:21 AM CDT AK PRGRMG EVAL IMPLANTABLE IN PRSN DUAL LEAD DFB Routine 06/04/2025 2:10 PM CDT VT (ventricular tachycardia) (CMS/HCC) Ischemic cardiomyopathy AK ECG ROUTINE ECG W/LEAST 12 LDS W/I&R Routine 06/03/2025 9:52 AM CDT Benign hypertension AK REM INTERROG PM/LDLS PM/IDS <90 D TECH REVIEW Routine 05/21/2025 9:04 PM CDT VT (ventricular tachycardia) (CMS/HCC) Ischemic dilated cardiomyopathy (CMS/HCC) Atrial fibrillation, unspecified type (CMS/HCC) Automatic implantable cardioverter-defibril lator in situ AK INTERROGATION EVAL REMOTE </90 D 1/2/EXTRUSION DIE TEMPLATE MAKER LD DFB Routine 05/21/2025 9:04 PM CDT VT (ventricular tachycardia) (CMS/HCC) Ischemic dilated cardiomyopathy (CMS/HCC) Atrial fibrillation, unspecified type (CMS/HCC) Automatic implantable cardioverter-defibril lator in situ AK INTERROG EVAL, REMOTE, UP TO 90 DAYS, PACER/DEFIB WITHIN GLOBAL Routine 04/28/2025 2:12 PM CDT Ischemic dilated cardiomyopathy (CMS/HCC) VT (ventricular tachycardia) (CMS/HCC) Atrial fibrillation, unspecified type (CMS/HCC) Automatic implantable cardioverter-defibril lator in situ AK INTERROG EVAL, REMOTE, UP TO 90 DAYS,CARDVERT/DEFIB WITHIN GLOBAL Routine 04/28/2025 2:12 PM CDT Ischemic dilated cardiomyopathy (CMS/HCC) VT (ventricular tachycardia) (CMS/HCC) Atrial fibrillation, unspecified type (CMS/HCC) Automatic implantable cardioverter-defibril lator in situ from Last 3 Months Results * AK PRGRMG EVAL IMPLANTABLE IN PRSN DUAL LEAD DFB (07/03/2025 7:24 AM RESIDENT ADVISOR) Only the most recent of2 resultswithin the time period is included. Narrative [facility] CARDIOLOG[facility] - 07/03/2025 7:24 AM RESIDENT ADVISOR Rachel Mccollum 07/03/2025 7:24 AM Office Device Check By Vendor Body Designer Date of Procedure: June 30, 2025 Tour Narrator: [employer] Comments: Office check by [employer] ambulatory services representative in conjunction w/ EP office visit. Interrogation reviewed by provider. Please see scan for details. Procedure Note Rachel Mccollum - 07/03/2025 7:24 AM CST Office Device Check By Vendor Body Designer Date of Procedure: June 30, 2025 Tour Narrator: [employer] Comments: Office check by [employer] ambulatory services representative in conjunction w/ EPoffice visit. Interrogation reviewed by provider. Please see scan for details. Ana Denis MD CARDIAC SERVICES ORDERABLES F inal Result [facility] [address] [facility] [place] [address] * AK ECG ROUTINE ECG W/LEAST 12 LDS W/I&R (06/30/2025 1:27 PM RESIDENT ADVISOR) Only the most recent of3 resultswithin the time period is included. Narrative [facility] - 06/30/2025 1:27 PM RESIDENT ADVISOR Ana Denis MD 06/30/2025 1:27 PM In my note Procedure Note Ana Denis MD - 06/30/2025 1:27 PM CST In my note Ana Denis MD ECG ORDERABLES Final Result Performing Organization Address [facility] de Phone Number [facility] [id number] [address] [facility] [address] [place] [address], [place] [phone] * CARDIOVERSION (06/11/2025 12:52 PM CDT) Narrative [facility] - 06/11/2025 1:02 PM CDT Title of procedure: DCCV Reason for the procedure: Atrial fibrillation/flutter Description of the procedure: After informed consent obtained. Patient sent to the chemical lab supervisor in a post-absorptive state. Conscious sedation was [...] MD CUP EP ORDERABLES Final Resul t Performing Organization Address [facility] de Phone Number [facility] [id number] [address] [facility] [address] [place] [phone], [place] [phone] * MANUAL DIFFERENTIAL (06/11/2025 10:25 AM CDT) PLATELET EST. Adequate 06/11/2025 11:09 AM CDT [facility] [place] ANISOCYTOSIS 2+ /hpf 06/11/2025 11:09 AM CDT [facility] [place] POIKILOCYTES 2+ /hpf 06/11/2025 11:09 AM CDT [facility] - [place] MICROCYTES 2+ /hpf 06/11/2025 11:09 AM CDT [facility] [place] POLYCHROMASIA 1+ /hpf 06/11/2025 11:09 AM CDT [facility] HYPOCHROMIA 2+ /hpf 06/11/2025 11:09 AM T [facility] TARGET CELLS 1+ /hpf 06/11/2025 11:09 AM T [facility] SCHISTOCYTES 1+ /hpf 06/11/2025 11:09 AM T [facility] TEAR DROP CELLS 1+ /hpf 11:09 AM T [facility] Blood Venipuncture / Unknown 06/11/2025 10:25 AM CDT 06/11/2025 10:29 AM CDT us Ana Denis MD HEMATOLOGY ORDERABLES COM Fin al Result [facility] CLIA # [id number] [address] [place] [id number] * (ABNORMAL) CBC WITH DIFFERENTIAL (06/11/2025 10:25 AM CDT) WBC 5.8 4.8 - 10.8 K/uL 06/11/2025 11:09 AM T [facility] RBC 4.82 4.60 - 6.20 M/uL 06/11/2025 11:09 AM [facility] HEMOGLOBIN 8.4(L) 14.0 - 18.0 g/dL 06/11/2025 11:09 AM T [facility] HEMATOCRIT 31.1(L) 41.0 - 53.0 % 06/11/2025 11:09 AM T [facility] MCV 64.5(L) 84.0 - 103.0 fL 06/11/2025 11:09 AM T [facility] MCH 17.4(L) 27.0 - 34.0 pg 06/11/2025 11:09 AM [facility] MCHC 27.0(L) 30.0 - 35.0 g/dL 06/11/2025 11:09 AM [facility] [employer] [facility] PLATELETS 288 140 - 440 K/uL 06/11/2025 11:09 AM [facility] [employer] [facility] MPV 9.2 8.9 - 12.8 fL 06/11/2025 11:09 AM [facility] [employer] [facility] RDW 19.9(H) 11.0 - 14.5 % 06/11/2025 11:09 AM [facility] [employer] [facility] RDW-STDEV 44.9 37.0 - 54.0 fL 06/11/2025 11:09 AM [facility] [employer] [facility] NEUTROPHILS 69 42 - 75 % 06/11/2025 11:09 AM [facility] [employer] [facility] LYMPHOCYTES 11(L) 24 - 44 % 06/11/2025 11:09 AM [facility] [employer] [facility] MONOCYTES 14(H) 2 - 10 % 06/11/2025 11:09 AM [facility] [employer] [facility] EOSINOPHILS 4 0 - 7 % 06/11/2025 11:09 AM [facility] [employer] [facility] BASOPHILS 1 0 - 1 % 06/11/2025 11:09 AM [facility] [employer] [facility] IMMATURE GRANULOCYTES 0 0 - 2 % 06/11/2025 11:09 AM [facility] [employer] [facility] NEUTROPHIL ABSOLUTE 3.99 2.00 - 8.00 K/uL 06/11/2025 11:09 AM [facility] [employer] [facility] LYMPHOCYTE ABSOLUTE 0.64(L) 1.20 - 4.00 K/uL 06/11/2025 11:09 AM [facility] [employer] [facility] MONOCYTE ABSOLUTE 0.84(H) 0.10 - 0.60 K/uL 06/11/2025 11:09 AM [facility] [employer] [facility] EOSINOPHIL ABSOLUTE 0.25 0.00 - 0.70 K/uL 06/11/2025 11:09 AM [facility] [employer] [facility] BASOPHILS ABSOLUTE 0.08 0.00 - 0.20 K/uL 06/11/2025 11:09 AM [facility] [employer] [facility] IMMATURE GRANULOCYTES ABSOLUTE 0.02 0.00 - 0.10 K/uL 06/11/2025 11:09 AM CDT [facility] SMEAR REVIEWED: SR - See Smear Review on Manual Diff. 06/11/2025 11:09 AM CDT [facility] Blood Venipuncture / Unknown 06/11/2025 10:25 AM CDT 06/11/2025 10:29 AM CDT us Ana Denis MD HEMATOLOGY ORDERABLES Final R esult Performing Organization Address [facility]/ZIP Co de Phone Number [facility] CLIA # [id number] [address] [facility] [place] [address] * (ABNORMAL) PROTIME-INR (06/11/2025 10:25 AM CDT) PROTIME 20.5(H) 12.7 - 14.9 Seconds 06/11/2025 10:45 AM CDT [facility] INR 1.7(H) 0.8 - 1.2 06/11/2025 10:45 AM CDT [facility] Blood Venipuncture / Unknown 06/11/2025 10:25 AM CDT 06/11/2025 10:29 AM CDT Narrative [facility] - 06/11/2025 10:45 AM CDT Expected Values for INR: DVT/PE Goal INR 2.5; range 2.0 - 3.0 Valve Replacement Tissue Goal INR 2.5; range 2.0 - 3.0 Valve Replacement Mechanical Goal INR 3.0; range 2.5 - 3.5 POST-DC Goal INR 2.5; range 2.0 - 3.0 or Goal INR 3.0; range 2.5 - 3.5 Atrial Fibrillation Goal INR 2.5; range 2.0 - 3.0 Ischemic Stroke Goal INR 2.5; range 2.0 - 3.0 us Ana Denis MD HEMATOLOGY ORDERABLES Final R esult [facility] CLIA # [id number] [address] [place] [address] [place] [address] * (ABNORMAL) BASIC METABOLIC PANEL (06/11/2025 10:25 AM CDT) SODIUM 135(L) 136 - 145 mmol/L 06/11/2025 11:03 AM T [facility] POTASSIUM 3.8 3.5 - 5.1 mmol/L 06/11/2025 11:03 AM T [facility] CHLORIDE 98 98 - 107 mmol/L 06/11/2025 11:03 AM [facility] CO2 26 22 - 29 mmol/L 06/11/2025 11:03 AM [facility] CALCIUM 8.4(L) 8.8 - 10.2 mg/dL 06/11/2025 11:03 AM [facility] BUN 19 8 - 23 mg/dL 06/11/2025 11:03 AM [facility] CREATININE 1.23(H) 0.67 - 1.17 mg/dL 06/11/2025 11:03 AM [facility] GLUCOSE 178(H) 74 - 99 mg/dL 06/11/2025 11:03 AM [facility] GFR >60 >=60 mL/min/1. 73 sq meter 06/11/2025 11:03 AM [facility] Comment:eGFR calculated with 2020 CKD-EPI equation. Vegetarian diet, extremely high or low muscle mass, and may affect results. Cystatin C with Glomerular Filtration Rate is a suitable alternative for these patients. ANION GAP 11 9 - 20 mmol/L 06/11/2025 11:03 AM [facility] Blood Venipuncture / Unknown 06/11/2025 10:25 AM CDT 06/11/2025 10:29 AM CDT us Ana Denis MD CHEMISTRY ORDERABLES Final Re sult [facility] ROBIA # [id number] [address] [facility] [place] [address] * AK INTERROGATION EVAL REMOTE </90 D 1/2/EXTRUSION DIE TEMPLATE MAKER LD DFB, AK REM INTERROG PM/LDLS PM/IDS <90 D TECHREVIEW [...] Months Insurance MEDICARE PART A AND B i3 membrane INS [place] [id number] * Guarantor: DWAYNE WERNER Account Type Relation to Patient Date of Phone Billing Address Personal/Family [address] [place] [address] RX [facility] Medicare Part D Advance Directives For more information, please contact: [phone] * Full Code (Latest Code Status on [...] 2:40 PM 11/01/2023 7:27 PM Care Teams Sawmill Equipment Operator Relationship Specialty Start Date End Date Teodoro Jon DO [address] [place] [phone] PCP - General 11/28/20
--- OUTSIDE RECORDS SUMMARY | 2025-07-08 15:42 | XMS_ITS | Encounter Summary ---
Author Organization [employer] [facility] Address [address] [place] [address] Care Team Providers Care Home Health Clinical Supervisor Name Role Phone Teodoro Jon DO Primary Care Provider [phone] Encounter Details Date Type Department Care Team (Latest Contact Info) Description 11/29/2001 Outpatient Historical HIS [facility] Audie Rosales Jr., MD [address] [place] [phone] ABN BLOOD CHEMISTRY NEC (Primary Dx) Social History Tobacco Use Types Packs/Day Years Used Date Smoking Tobacco: Never Assessed Sex and Gender Information Value Date Recorded Sex Assigned at Not on file 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
--- OUTSIDE RECORDS SUMMARY | 2025-07-08 15:42 | XMS_ITS | Encounter Summary ---
Author Organization [facility] Address [address] [place] [address] Care Team Providers Care Kier Pleater Name Role Phone Teodoro Jon Primary Care Provider [phone] Encounter Details Date Type Department Care Team (Late st Contact Info) Description 07/01/2025 External Device Data [facility] ABSTRACTION Provider, Abstract NO ADDRESS ON FILE Social History Tobacco [...] on file Legal Sex Male 4:49 PM CAT SWAMPER Gender Identity Not on file Sexual Orientation Not on file documented as of this encounter Plan of Treatment Upcoming Encounters Date Type Department Care Team (Late st Contact Info) Description 09/08/2025 10:40 AM CAT SWAMPER Office Visit [facility] [address] [facility] [address] [place] [phone] Ana Denis MD [address] [place] [phone] Rayray May ANP [address] [place] [phone] 10/09/2025 8:00 AM CAT SWAMPER Procedure visit [facility] [address] [place] [phone] Ana Denis MD [address] [place] [phone] documented as of this encounter Visit Diagnoses Not on filedocumented in this encounter Care Teams Kier Pleater Relationship Specialty Start Date End Date Teodoro Jon DO [address] [place] [phone] PCP - General 11/28/20 documented as of this encounter
--- OUTSIDE RECORDS SUMMARY | 2025-07-08 15:42 | XMS_ITS | Encounter Summary ---
Author Organization [employer] [facility] Address [address] [place] [address] Care Team Providers Care Panelboard Assembler Name Role Phone Teodoro Jon DO Primary Care Provider [phone] Encounter Details Date Type Department Care Team (Latest Contact Info) Description 04/30/2003 Outpatient Historical HIS [facility] Audie Rosales Jr., MD [address] [place] [address] HYPERTENSION NOS (Primary Dx); Pure hypercholesterolem; CRAMP IN LIMB Social History Tobacco Use Types Packs/Day Years Used Date Smoking Tobacco: Never Assessed Sex and Gender Information Value Date Recorded Sex Assigned at Not on file 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
--- OUTSIDE RECORDS SUMMARY | 2025-07-08 15:42 | XMS_ITS | Encounter Summary ---
Author Organization [email or web address] [facility] Address [address] [place] [address] Care Team Providers Care Vp Of Digital Marketing Name Role Phone Teodoro Jon DO Primary Care Provider [phone] Encounter Details Date Type Department Care Team (Latest Contact Info) Description 05/03/2002 Outpatient Historical HIS [facility] Audie Rosales Jr., MD [address] [place] [phone] HYPERTENSION NOS (Primary Dx); OSTEOARTHROS NOS-UNSPEC Social History Tobacco Use Types Packs/Day Years Used Date Smoking Tobacco: Never Assessed Sex and Gender Information Value Date Recorded Sex Assigned at Not on file 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
--- OUTSIDE RECORDS SUMMARY | 2025-07-08 15:42 | XMS_ITS | Encounter Summary ---
Author Organization [employer] [facility] Address [address] [place] [address] Care Team Providers Care Outside Laborer Name Role Phone Teodoro Jon DO Primary Care Provider [phone] Encounter Details Date Type Department Care Team (Latest Contact Info) Description 04/03/2002 Outpatient Historical HIS [facility] Audie Rosales Jr., MD [address] [place] [address] OSTEOARTHROS NOS-UNSPEC (Primary Dx); JOINT PAIN-UNSPEC Social History Tobacco Use Types Packs/Day Years Used Date Smoking Tobacco: Never Assessed Sex and Gender Information Value Date Recorded Sex Assigned at Not on file 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
--- OUTSIDE RECORDS SUMMARY | 2025-07-08 15:42 | XMS_ITS | Encounter Summary ---
[facility] Organization [facility] Address [address] [place] [address] Care Team Providers Care Desizing Machine Operator Name Role Phone Teodoro Jon DO Primary Care Provider Encounter Details Date Type Department Care Team (Late st Contact Info) Description 01/07/2003 Outpatient Historical HIS [facility] Audie Rosales Jr., MD [address] [place] [address] Social History Tobacco Use Types Packs/Day Years Used Date Smoking Tobacco: Never Assessed Sex and Gender Information Value Date Recorded Sex Assigned at Not on file Legal Sex Male 5:09 AM TYPE COPYIST Gender Identity Not on file Sexual Orientation Not on file documented as of this encounter Plan of Treatment Not on file documented as of this encounter Visit Diagnoses Not on filedocumented in this encounter Care Teams Desizing Machine Operator Relationship Specialty Start Date End Date Teodoro Jon DO [address] [place] [phone] PCP - General Family Practice 03/19/20 documented as of this encounter
--- OUTSIDE RECORDS SUMMARY | 2025-07-08 15:42 | XMS_ITS | Encounter Summary ---
Author Organization [employer] [facility] Address [address] [place] [address] Care Team Providers Care Tube Blower Name Role Phone Teodoro Jon DO Primary Care Provider [phone] Encounter Details Date Type Department Care Team (Latest Contact Info) Description 01/29/2003 Outpatient Historical HIS [facility] Audie Rosales Jr., MD [address] [place] [address] LIPOID METABOL DIS NOS (Primary Dx); HYPERTENSION NOS Social History Tobacco Use Types Packs/Day Years Used Date Smoking Tobacco: Never Assessed Sex and Gender Information Value Date Recorded Sex Assigned at Not on file 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
--- OUTSIDE RECORDS SUMMARY | 2025-07-08 15:42 | XMS_ITS | Clinical Summary ---
Author Organization [facility] [employer] Address [address] [place] [address] Care Team Providers Care Maturity Checker Name Role Phone Teodoro Jon DO Primary Care Provider [phone] Allergies Active Allergy Reactions Criticality Noted Date [...] on file Legal Sex Male 5:09 AM MATURITY CHECKER Gender Identity Not on file Sexual Orientation [...] 36.2 C (97.2 F) 09/03/2020 8:35 AM MATURITY CHECKER Respiratory Rate 16 09/03/2020 8:59 AM MATURITY CHECKER Oxygen Saturation 93% 09/03/2020 8:59 AM MATURITY CHECKER Inhaled Oxygen Concentration - - Weight 118.4 [...] Advance Directives For more information, please contact: [phone] * Full Code (Latest Code Status on [...] 4:41 PM 05/02/2013 12:04 PM Care Teams Maturity Checker Relationship Specialty Start Date End Date Teodoro Jon DO [facility] [place] [phone] PCP - General Family Practice 03/19/20
--- OUTSIDE RECORDS SUMMARY | 2025-07-08 15:42 | XMS_ITS | Encounter Summary ---
Author Organization [employer] [facility] Address [address] [place] [address] Care Team Providers Care Harness Puller Name Role Phone Teodoro Jon DO Primary Care Provider [phone] Encounter Details Date Type Department Care Team (Latest Contact Info) Description 10/30/2002 Outpatient Historical [facility] Audie Rosales Jr., MD [address] [place] [phone] DIABETES UNCOMPL ADULT-TYPE II (CMS/HCC) (Primary Dx); HYPERTENSION NOS; Pure hypercholesterolem; VACCINE FOR STREP PNEUMONIAE Social History Tobacco Use Types Packs/Day Years Used Date Smoking Tobacco: Never Assessed Sex and Gender Information Value Date Recorded Sex Assigned at Not on file Legal 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
--- OUTSIDE RECORDS SUMMARY | 2025-07-08 15:42 | XMS_ITS | Encounter Summary ---
Author Organization [employer] [facility] Address [address] [place] [address] Care Team Providers Care Editing Intern Name Role Phone Teodoro Jon DO Primary Care Provider [phone] Encounter Details Date Type Department Care Team (Latest Contact Info) Description 08/01/2002 Outpatient Historical HIS [facility] Audie Rosales Jr., MD [address] [place] [address] HYPERTENSION NOS (Primary Dx); OSTEOARTHROS NOS-UNSPEC Social History Tobacco Use Types Packs/Day Years Used Date Smoking Tobacco: Never Assessed Sex and Gender Information Value Date Recorded Sex Assigned at Not on file Legal Sex Male 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
--- OUTSIDE RECORDS SUMMARY | 2025-07-08 15:42 | XMS_ITS | Encounter Summary ---
Author Organization [employer] [facility] Address [address] [place] [address] Care Team Providers Care Counter Control Operator Name Role Phone Teodoro Jon DO Primary Care Provider [phone] Encounter Details Date Type Department Care Team (Late st Contact Info) Description 10/30/2002 Outpatient Historical HIS [facility] Audie Rosales Jr., MD [address] [place] [address] Social History Tobacco Use Types Packs/Day Years Used Date Smoking Tobacco: Never Assessed Sex and Gender Information Value Date Recorded Sex Assigned at Not on file 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
--- OUTSIDE RECORDS SUMMARY | 2025-07-08 15:42 | XMS_ITS | Encounter Summary ---
Author Organization [facility] Address [address] 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
--- OUTSIDE RECORDS SUMMARY | 2025-07-08 15:42 | XMS_ITS | Encounter Summary ---
Author Organization [facility] Address [address] [place] [address] Care Team Providers Care Associate Director Of Development Name Role Phone Teodoro Jon DO Primary Care Provider [phone] Reason for Referral * Outpatient Services (Routine) - Closed Specialty Diagnoses / Procedures Referred By Contac t Referred To Contact Diagnoses PVC's (premature ventricular contractions) Procedures CL STUDY POSS ABLATION Ana Denis MD [address] [place] [address] Phone: tel: fax: Referral ID Status Reason Start Date Expiration Date Visits Re quested Visits Authorized [id number] Closed 04/08/2013 05/09/2014 1 1 Encounter Details Date Type Department Care Team (Late st Contact Info) Description 04/08/2013 Ancillary Orders [facility] Cardiology- [place] [address] [place] [address] Ana Denis MD [address] [place] [phone] PVC's (premature ventricular contractions) (Primary Dx) [...] on file 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 PRE-PROCEDURE DIAGNOSES: 1. Symptomatic refractory premature ventricular contractions. 2. Hypertension. 3. Jzk-nooguro-awjlkxeuw diabetes. 4. Hyperlipidemia. 5. Myocardial infarction and history of bypass surgery. POST-PROCEDURE DIAGNOSES: 1. Symptomatic refractory premature ventricular contractions. 2. Hypertension. 3. Pmu-uyjqzyv-wfiyiggfp diabetes. 4. Hyperlipidemia. 5. Myocardial infarction and history of bypass surgery. 6. Status post PVC ablation, PVC at left inferior septal area LV. MATERIALS USED: 1. 5-, 6-, 5-Beninese sheath to the left femoral veins for [...] electrically record His bundle, RV, and HRA. 7-Beninese sheath to the right femoral artery, later [...] femoral vein changed to the short sheath 8-Beninese. FINAL SUMMARY: 1. Mildly prolonged HV. 2. PVC originally from the LV inferior septal area which was ablated. Post ablation, no more PVC seen. No other significant arrhythmia can be identified. SCL/jaw - transcribed in Epic - Procedure Note Ana Denis MD - 05/03/2013 TYPE OF PROCEDURE: PVC ablation. PRE-PROCEDURE DIAGNOSES: 1. Symptomatic refractory premature ventricular contractions. 2. Hypertension. 3. Igv-rponwbt-sollkljsq diabetes. 4. Hyperlipidemia. 5. Myocardial infarction and history of bypass surgery. POST-PROCEDURE DIAGNOSES: 1. Symptomatic refractory premature ventricular contractions. 2. Hypertension. 3. Mbm-nhwynof-lrleggpbq diabetes. 4. Hyperlipidemia. 5. Myocardial infarction and history of bypass surgery. 6. Status post PVC ablation, PVC at left inferior septal area LV. MATERIALS USED: 1. 5-, 6-, 5-Beninese sheath to the left femoral veins for [...] can electrically record His bundle, RV,and HRA. 7-Beninese sheath to the right femoral artery, later [...] right femoral vein changed to the short sheath8-Beninese. FINAL SUMMARY: 1. Mildly prolonged HV. 2. PVC originally from the LV inferior septal area which was ablated.Post ablation, no more PVC seen. No other significant arrhythmia can beidentified. SCL/jaw - transcribed in [employer] - us Ana Denis MD FLUOROSCOPY ORDERABLES Final Result [facility] documented in this encounter Visit Diagnoses Diagnosis PVC's (premature ventricular contractions)- Primary Other premature beats Frequent PVCs- Primary Other premature beats PVC's (premature ventricular contractions) Other premature beats documented in this encounter Care Teams Associate Director Of Development Relationship Specialty Start Date End Date Teodoro Jon DO [address] [place] [phone] PCP - General Family Practice 03/19/20 documented as of this encounter
--- OUTSIDE RECORDS SUMMARY | 2025-07-08 15:42 | XMS_ITS | Encounter Summary ---
Author Organization [facility] Address 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 Gender Identity Not on file Sexual Orientation Not on file documented as of this encounter Plan of Treatment Upcoming Encounters Date Type Department Care Team (Late st Contact Info) Description 09/08/2025 10:40 AM ELECTRICAL CONSTRUCTION PROJECT MANAGER Office Visit [facility] [address] [place] [phone] Ana Denis MD [address] [place] [phone] Rayray May ANP [address] [place] [phone] 10/09/2025 8:00 AM ELECTRICAL CONSTRUCTION PROJECT MANAGER Procedure visit [facility] [address] [place] [address] Ana Denis MD [address] [place] [phone] documented as of this encounter Visit Diagnoses Not on filedocumented in this encounter Care Teams Dry Ice Machine Operator Relationship Specialty Start Date End Date Teodoro Jon DO [address] [place] [phone] PCP - General 11/28/20 documented as of this encounter
--- OUTSIDE RECORDS SUMMARY | 2025-07-08 15:42 | XMS_ITS | Encounter Summary ---
Author Organization [employer] [facility] Address [address] [place] [address] Care Team Providers Care Intelligence Group Supervisor Name Role Phone Teodoro Jon DO Primary Care Provider [phone] Encounter Details Date Type Department Care Team (Latest Contact Info) Description 06/04/2003 Outpatient Historical HIS [facility] Audie Rosales Jr., MD [address] [place] [address] ENDOCRINE/NERV TAMMIE NOS (Primary Dx); HYPOVOLEMIA Social History Tobacco Use Types Packs/Day Years Used Date Smoking Tobacco: Never Assessed Sex and Gender Information Value Date Recorded Sex Assigned at Not on file Legal Sex Male 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
--- OUTSIDE RECORDS SUMMARY | 2025-07-08 15:42 | XMS_ITS | Encounter Summary ---
Author Organization [email or web address] [facility] Address [address] [place] [address] Care Team Providers Care Resource Development Director Name Role Phone Teodoro Jon DO Primary Care Provider [phone] Encounter Details Date Type Department Care Team (Latest Contact Info) Description 01/04/2002 Outpatient Historical HIS [facility] Audie Rosales Jr., MD [address] [place] [address] HYPERTENSION NOS (Primary Dx); DIABETES UNCOMPL ADULT-TYPE II (CMS/[facility]) Social History Tobacco Use Types Packs/Day Years Used Date Smoking Tobacco: Never Assessed Sex and Gender Information Value Date Recorded Sex Assigned at Not on file Legal Sex Male 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
--- OUTSIDE RECORDS SUMMARY | 2025-07-08 15:43 | XMS_ITS | Patient Health Record ---
Author Organization [facility] Address [address] [place] [address] Care Team Providers [employer] Sales Representative Name Role Phone Audie Rosales Unavailable [phone] Allergies Allergen (clinical drug ingredient) Drug/Non Drug [...] tab(s) by mouth q supper #180 (One [place] and [address]y) tablet(s) 12/23/2013 Active Furosemide 20 [...] Status W/U Status Risk Notes Problem Angina (531785527) Other and unspecified angina pectoris (413.9) Active confirmed Mariano-[id number]- Problem Vitamin B-complex deficiency (202235727) Deficiency of B-complex vitamins (266.2) 2013 Active confirmed Mariano-98 [id number]- Problem Lumbosacral spondylosis without myelopathy (24379636) 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 Active confirmed Mariano-98 5911- Problem Congestive heart failure (33487332) Congestive heart failure (428.0) 2014 Active confirmed Mariano-98 5911- Problem Coronary artery disease (57615463) CAD (414.01) 2012 Active confirmed Mariano-98 5911- Problem Erectile dysfunc tion secondary to diabetes (607.84) 2018 Active confirmed Mariano-98 5911- Problem Diabetes mellitus type 2 (disorder) (80445289) Type II diabetes (250.00) 2014 Active confirmed Mariano-98 5911- Problem Diabetes mellitus type 2 (disorder) (04067050) Type 2 diabetes (250.00) 2010 Active confirmed Mariano-98 5911- Problem Hyperparathyroidism (03024364) Hyperparathyroidism (252.0) 2003 Problem resolved confirmed Mariano-98 5911- Problem Pityriasis versicolo r (47800369) Pityriasis versicolor (111.0) 2005 Problem resolved confirmed Mariano-98 5911- Problem Obstructive sleep apnea syndrome (26678505) Obstructive sleep apnea (adult) (pediatric) (327.23) 2017 Problem resolved confirmed Mariano-98 5911- Problem Carpal tunnel syndrome (18233368) Carpal tunnel syndrome (354.0) 2016 Problem resolved confirmed Mariano-98 5911- Problem Benign essential hypertension (4050806) Essential hypertension, benign (401.1) 2003 Problem resolved confirmed Mariano-98 5911- Problem Seborrhea (1666655315) Seborrhea (706.3) 2012 Problem resolved confirmed Mariano-98 5911- Problem Stress fracture (369212829) Stress fracture of other bone (733.95) 2003 Problem resolved confirmed Mariano-98 5911- Problem Edema (089438035) Edema (782.3) 2011 Problem resolved confirmed Mariano-98 5911- Problem Headache (23553636) Headache (784.0) 11/12 Problem resolved confirmed Mariano-98 5911- Problem Cough (49502540) Cough (786.2) 2018 Problem resolved confirmed Mariano-98 5911- Problem Chest pain (63642555) Chest pain , unspecified (786.50) 2016 Problem resolved confirmed Mariano-98 5911- Problem Basal cell carcinoma of face (138934979) Basal cell carcinoma of skin of other and unspecified parts of face (173.31) 2016 Problem resolved confirmed Mariano-98 5911- Problem Restless legs (16494018) Restless legs syndrome (RLS) (333.94) 2009 Problem resolved confirmed Mariano-98 5911- Problem Depression (166089207) Depression (311) 2007 Problem resolved confirmed Mariano-98 5911- Problem Dizziness (012170502) Dizziness (780.4) 0 2009 Problem resolved confirmed Mariano-98 5911- Problem Umbilical hernia (129972775) Umbilical hernia (553.1) 2006 Problem resolved confirmed Mariano-98 5911- Problem Orchitis and epididymitis (011853798) Epidymitis, unspecified (604.90) 2014 Problem resolved confirmed Mariano-98 5911- Problem Hypercholesterolemia (85346298) Hypercholesterolemia (272.0) 2009 Problem resolved confirmed Mariano-98 5911- Problem Hypotension (90148438) Hypotension, other (458.8) 2016 Problem resolved confirmed Mariano-98 5911- Problem Swelling of limb (85892595) Lower extremity swelling (729.81) 2014 Problem resolved confirmed Mariano-98 5911- Problem Osteoarthritis of knee (784324045) Osteoarthritis of knee (715.16) 2014 Problem resolved confirmed Mariano-98 5911- Problem Screening for ca ncer - other (V76.49) 2012 Problem resolved confirmed Mariano-98 5911- Problem Shortness of breath (393655730) Shortness of breath (786.09) 2006 Problem resolved confirmed Mariano-98 5911- Problem Onychomycosis caused by dermatophyte (348040105) Toe onychomycosis (110.1) 2017 Problem resolved confirmed Mariano-98 5911- Problem Vaccination agai nst Streptococcus pneumoniae [pneumococcus] (V03.82) 2009 Problem resolved confirmed Mariano-98 5911- Problem Screening for colon cancer (045434770) Screening for colon cancer (V76.49) 2015 Problem resolved confirmed Mariano-98 5911- Problem Angina (685555874) Angina (413.9) 2011 Problem resolved confirmed Mariano-98 5911- Problem Anosmia (95897484) Anosmia (781.1) 2016 Problem resolved confirmed Mariano-98 5911- Problem Contusion of multipl e sites of upper limb (33800016) Multiple contusions of upper limb (923.8) 2015 Problem resolved confirmed Marinao-98 5911- Problem Disorder of hematopoietic system (83136209) Other abnormal findings on blood examination (790.99) 2014 Problem resolved confirmed Mariano-98 5911- Problem Pain in testicle (91523177) Testicular pain (608.89) 2014 Problem resolved confirmed Mariano-98 5911- Problem Chest pain (70234481) Chest pain (786.51) 2011 Problem resolved confirmed Mariano-98 5911- Problem Chronic combined systolic and diastolic heart failure (231638189235660) Combined systolic and diastolic heart failure, chronic (428.42) 2014 Problem resolved confirmed Mariano-98 5911- Problem Earache (980249270) Earache (388.71) 2012 Problem resolved confirmed Mariano-98 5911- Problem Generalized abdomina l pain (828034684) Generalized abdominal pain (789.07) 2005 Problem resolved confirmed Mariano-98 5911- Problem Generalized osteoarthritis (424740651) Generalized osteoarthritis, multiple sites (715.09) 2003 Problem resolved confirmed Mariano-98 5911- Problem Hematochezia (281142599) Hematochezia (578.1) 2005 Problem resolved confirmed Mariano-98 5911- Problem Internal hemorrhoids (33344152) Hemorrhoids, internal (455.0) 2005 Problem resolved confirmed Mariano-98 5911- Problem Psychosexual dysfunction associated with inhibited sexual excitement (473857528783964) Impotence (302.72) 2006 Problem resolved confirmed Mariano-98 5911- Problem Lab: Used to mat ch unlinked laboratory orders (V92) 2014 Problem resolved confirmed Mariano-98 5911- Problem Generalized anxiety disorder (10525677) TESSA (300.02) 2015 Problem resolved confirmed Mariano-98 5911- Problem Hand pain (26341848) Hand pain (729.5) 2017 Problem resolved confirmed Mariano-98 5911- Problem Intermittent claudication secondary to arteriosclerosis (440.21) 2013 Problem resolved confirmed Mariano-98 5911- Problem Foot pain (50145287) Foot pain (729.5) 2004 Problem resolved confirmed Mariano-98 5911- Problem Hypertension (35379645) Hypertension (401.1) 2009 Problem resolved confirmed Mariano-98 5911- Problem Hypotension (09807014) Hypotension (458.8) 2012 Problem resolved confirmed Mariano-98 5911- Problem Pain in limb (48486269) Leg pain (729.5) 2006 Problem resolved confirmed Mariano-98 5911- Problem Precordial pain (87575861) Precordial chest pain (786.51) 2006 Problem resolved confirmed Mariano-98 5911- Problem Screening for malignant neoplasm of colon (515273664) Screening for colorectal cancer (V76.49) 2013 Problem resolved confirmed Mariano-98 5911- Problem General examination of patient (429369073) Annual exam (V70.0) 2008 Problem resolved confirmed Mariano-98 5911- Problem Cardiac arrhythmia (030862259) Bigeminy (427.89) 2012 Problem resolved confirmed Mariano-98 5911- Problem Chronic gastric ulce r without hemorrhage, without perforation AND without obstruction (7353362) Chronic gastric ulcer, without mention of obstruction (531.70) 2012 Problem resolved confirmed Mariano-98 5911- Problem Nose bleeding (784.7) 2005 Problem resolved confirmed Mariano-98 5911- Problem Anxiety state (769252322) Situational stress with anxiety (300.09) 2012 Problem resolved confirmed Mariano-98 5911- Problem Peripheral circulatory disorder associated with type II diabetes mellitus (390255564) Uncontrolled NIDDM with PVD (250.72) 2007 Problem resolved confirmed Mariano-98 5911- Problem Unstable angina (4327969) Unstable angina (411.1) 2013 Problem resolved confirmed Mariano-98 5911- Problem Urinary tract infection (80617732) UTI (595.0) 2009 Problem resolved confirmed Mariano-98 5911- Problem Needs influenza immunization (754298939) Vaccination against other viral diseases, Influenza (V04.81) 2011 Problem resolved confirmed Mariano-98 5911- Problem Weak urinary stream (690795474) Weak urinary stream (788.62) 2017 Problem resolved confirmed Mariano-98 5911- Problem Acute stress reaction with anxiety (308.0) 2014 Problem resolved confirmed Mariano-98 5911- Problem Acute upper respiratory infection (28687262) Acute upper respiratory infection (465.8) 2004 Problem resolved confirmed Mariano-98 5911- Problem Impacted cerumen (87402850) Cerumen impaction (380.4) 2007 Problem resolved confirmed Mariano-98 5911- Problem Chest pain (62620688) Chest pain , other type (786.59) 2016 Problem resolved confirmed Mariano-98 5911- Problem Coronary artery disease (99184591) Coronary artery disease (414.01) 2007 Problem resolved confirmed Mariano-98 5911- Problem Syncope and collapse (050238641) Near-syncope (780.2) 2016 Problem resolved confirmed Mariano-98 5911- Problem Osteoarthritis of shoulder (07032087) Osteoarthritis of shoulder (715.11) 2016 Problem resolved confirmed Mariano-98 5911- Problem Acute otitis media (0530649) Acute otitis media (382.00) 2013 Problem resolved confirmed Mariano-98 5911- Problem Anxiety (14496966) Anxiety (300.02) 04/01 Problem resolved confirmed Mariano-98 5911- Problem Carotid artery stenosis (69103103) Carotid artery stenosis (785.9) 2016 Problem resolved confirmed Mariano-98 5911- Problem Cervical radiculopathy (76100973) Cervical radiculopathy (723.4) 2016 Problem resolved confirmed Mariano-98 5911- Problem Congestive heart failure (94924868) CHF (428.0) 2016 Problem resolved confirmed Mariano-98 5911- Problem Constipation (33992317) Constipation (564.01) 2014 Problem resolved confirmed Mariano-98 5911- Problem Diabetic neuropa thy with moderate loss of protective sensation in feet (250.6) 2008 Problem resolved confirmed Mariano-98 5911- Problem Follow-up exam - other (V67.59) 2016 Problem resolved confirmed Mariano-98 5911- Problem Knee pain (2669921630) Knee pain (719.46) 2013 Problem resolved confirmed Mariano-98 5911- Problem Adjustment disorder with depressed mood (03556912) Bereavement adjustment reaction (309.0) 2017 Problem resolved confirmed Mariano-98 5911- Problem Bradycardia (67972846) Bradycardia (427.89) 2011 Problem resolved confirmed Mariano-98 5911- Problem Erectile dysfunction (208563179) Erectile dysfunction (302.72) 2004 Problem resolved confirmed Mariano-98 5911- Problem Acute gastritis (93852756) Gastritis, acute (535.00) 2016 Problem resolved confirmed Mariano-98 5911- Problem Acute systolic heart failure (008271376) Systolic heart failure, acute (428.21) 2011 Problem resolved confirmed Mariano-98 5911- Problem Abnormal laborat ory test findings without diagnosis (796.4) 2012 Problem resolved confirmed Mariano-98 5911- Problem Acquired trigger finger (7353041) Acquired trigger finger (727.03) 2018 Problem resolved confirmed Mariano-98 5911- Problem Chest discomfort (144247750) Chest discomfort (786.59) 2013 Problem resolved confirmed Mariano-98 5911- Problem Benign hypertensive heart disease with congestive cardiac failure (703113913) CHF due to chronic HTN (402.11) 2011 Problem resolved confirmed Mariano-98 5911- Problem Bilateral inguinal hernia (92224222) Uncomplicated bilateral hernias (550.92) 2006 Problem resolved confirmed Mariano-98 5911- Problem Vitamin D deficiency (88695877) Vitamin D deficiency, unspecified (268.9) 2015 Problem resolved confirmed Mariano-98 5911- Problem Low back pain (518297577) Lower back pain (724.2) 2009 Problem resolved confirmed Mariano-98 5911- Problem Muscle pain (60240426) Muscle aches (729.1) 2015 Problem resolved confirmed Mariano-98 5911- Problem Coronary arteriosclerosis (disorder) (67093306) Coronary artery disease, of [place] coronary artery (414.01) 2010 Problem resolved confirmed Mariano-98 5911- Problem Essential hypertension (95979004) Essential hypertension (401.1) 2004 Problem resolved confirmed Mariano-98 5911- Problem Finger pain (96967148) Finger pain (729.5) 2016 Problem resolved confirmed Mariano-98 5911- Problem Gastroesophageal reflux disease (960170604) GERD (530.81) 2016 Problem resolved confirmed Mariano-98 5911- Problem Hypertension (98139378) HTN (401.1) 2003 Problem resolved confirmed Mariano-98 5911- Problem Type II diabetes mellitus without complication (214016799) NIDDM (250.00) 2007 Problem resolved confirmed Mariano-98 5911- Problem Visual disturbance (10595369) Other specified visual disturbance (368.8) 2016 Problem resolved confirmed Mariano-98 5911- Problem Primary hypercholesterolemia (894456000) Primary hypercholesterolemia (272.0) 2004 Problem resolved confirmed Mariano-98 5911- Problem Localized, primary osteoarthritis of the shoulder region (387068062) Primary localized osteoarthritis, shoulder region (715.11) 2003 Problem resolved confirmed Mariano-98 5911- Problem Tendonitis (78449962) Tendonitis (726.90) 2016 Problem resolved confirmed Mariano-98 5911- Problem Androgen deficiency (08907498) Testosterone deficiency (259.8) 2005 Problem resolved confirmed Mariano-98 5911- Problem Thoracic back pain (301230767) Upper back pain (724.5) 2018 Problem resolved confirmed Mariano-98 5911- Problem Coronary artery disease (41804317) CAD (414.0) 2014 Problem resolved confirmed Mariano-98 5911- Plan Of Treatment No Information Medical (General) History Surgical History Surgery Date(Month/Year) Positive forCholecystectomy: 2005; ; Positive forCataract Removal andCardiac Ablation 9\2012;; PTCA (Coronary Angioplasty): 1983;
[2025-07-08 15:53] LABS: Hematocrit 25.9 % (37-53); Hemoglobin 6.90 g/dL (11.27-16.99); Mean Corpuscular HGB Conc 26.6 g/dL (30-55); Mean Corpuscular Hemoglobin 17.1 pg (27-33); Mean Corpuscular Volume 64.1 fl (82-101); Nucleated Red Blood Cells % 0.3 %; Platelet Count 265 10^3/cmm (157-399); Red Blood Count 4.04 10^6/uL (3.85-5.65); White Blood Count 5.89 10^3/uL (3.29-11.43)
[2025-07-08 16:12] LABS: Troponin(5th) Baseline 16 ng/L (0-15)
[2025-07-08 16:35] LABS: Alanine Aminotransferase 14 U/L (0-41); Albumin Level 3.8 g/dL (3.5-5.2); Alkaline Phosphatase 136 U/L (40-130); Anion Gap 16.1 (5-19); Aspartate Amino Transferase 20 U/L (0-40); Blood Urea Nitrogen 24 mg/dL (8-23); Calcium 8.3 mg/dL (8.5-10.5); Carbon Dioxide 24 mmol/L (22-29); Chloride 97 mmol/L (98-107); Globulin 2.4 g/dL (1.3-4.6); Glucose 214 mg/dL (65-115); NT Pro B Type Natriuretic Pept 2764 pg/mL (0-125); Osmolality Calculated 286 mOsm/kg (285-295); Potassium 4.1 mmol/L (3.5-5.1); Sodium 133 mmol/L (136-145); Total Protein 6.2 g/dL (6.6-8.7)
--- NOTE | 2025-07-08 17:04 | PM.HP ---
Providers/Chief Complaint Admitting Physician: Satinder Chapa Primary Care Provider: Teodoor Jon DO Chief Complaint: retaining fluid, weakness History of Present Illness Dwayne Salinas is a 69 year old male with PMHx of HTN, CAD (s/p 3v-CABG 01/2025), AFIB/Flutter (s/p ablation), ICM / HFrEF 40-45%, HLD, Dm 2T, anemia Patient presented to [facility] ED on 07/08/25 out of concern for fluid retention. Patient was hospitalized to 06/20/25 for atrial fibrillation and decompensated heart failure. Since discharge, over that past 2.5 weeks, he noted progressive increase in BLE edema, orthopnea, exertional dyspnea and abdominal distention. He reports weight gain of 20 lbs. Reports adherence with his medications. He reports to have been taking double dose of furosemide since Monday (07/04/25), taking 80 mg AM and 40 mg PM. Despite increase in diuretic dose, he reports continued weight gain. He reports experiencing right sided tenderness. Denies N/V/D, hemoptysis, hematemesis and blood loss per rectum. Denies prior history of GIB. Does not use NSAIDs. ED Course Presenting VS, 07/08/25 1637 T 97.6 BP 117/58 HR 70 RR 14 SpO2 95% Labs, 07/08/25 1546 Hemogram WBC 5.89 RBC 4.04 PLT 265 HGB 6.9 HCT 25.9 Chemistry Na 133 K 4.1 Cl 97 Ca 8.3 Glu 214 CO2 24 AG 16 BUN 24 Cr 1.5 eGFR 46.4 AST 20 ALT 14 ALP 136 T.Bili 1.3 Alb 3.8 T.Protein 6.2 HS Trop 16 -> 16.57 NT-proBNP 2764 CXR 07/08/25 No acute findings. In ED received 60 mg IV furosemide and 1u pRBC transfusion was initiated. Review of Systems General: Reports: 10 or more systems reviewed and unremarkable except in HPI and below Medications/Allergies Home Medications ?Medication ?Instructions ?Recorded ?Confirmed ?Last Taken ?Type acetaminophen 500 mg tablet 1,000 mg PO TID PRN Pain 09/17/19 07/08/25 07/08/25 History (Tylenol Extra Strength) cholecalciferol (vitamin D3) 50 2,000 unit PO QAM 09/17/19 07/08/25 07/08/25 History mcg (2,000 unit) tablet [id number] 300 mcg-K 60 1 tab PO QAM 09/19/19 07/08/25 07/08/25 History mcg-lycop 600 mcg-lutein 300 mcg tablet (Centrum Silver Men) ascorbic acid (vitamin C) 1,000 mg 1,000 mg PO QAM 04/19/22 07/08/25 07/08/25 History tablet (Vitamin C) cyanocobalamin (vitamin B-12) 1,000 mcg PO QAM 04/19/22 07/08/25 07/08/25 History 1,000 mcg tablet (Vitamin B-12) nitroglycerin 0.4 mg sublingual 0.4 mg sublingual Q5M PRN Chest 08/23/23 07/08/25 Unknown Rx tablet (Nitrostat) Pain #25 tabs blood sugar diagnostic (ReliOn #100 ea 02/05/24 07/08/25 Unknown Rx Prime Test Strips) tadalafil 5 mg tablet 5 mg PO DAILY Ed, prostate heatlh 06/07/24 07/08/25 02/05/25 Rx #30 tabs zinc sulfate 50 mg zinc (220 mg) 50 mg PO QAM 06/15/24 07/08/25 07/08/25 History tablet canagliflozin 300 mg tablet 300 mg PO QAM #90 tabs 08/14/24 07/08/25 07/08/25 Rx (Invokana) simvastatin 20 mg tablet 20 mg PO BEDTIME #90 tabs 09/25/24 07/08/25 07/07/25 Rx clopidogrel 75 mg tablet 75 mg PO QAM #90 tabs 12/12/24 07/08/25 07/08/25 Rx reliOn [place] test stripts. #100 ea 02/11/25 07/08/25 Unknown Rx ranolazine 500 mg tablet,extended 500 mg PO BID #60 tabs 04/03/25 07/08/25 07/08/25 Rx release,12 hr apixaban 5 mg tablet (Eliquis) 5 mg PO BID #180 tabs 05/22/25 07/08/25 07/08/25 Rx glyburide 5 mg tablet 5 mg PO QAM #90 tabs 1007/08/25 07/08/25 Rx pantoprazole 40 mg tablet,delayed 40 mg PO DAILY stomach protection 05/27/25 07/08/25 07/08/25 Rx release #90 tabs tramadol 50 mg tablet 100 mg (2 x 50 mg) PO TID PRN Pain 05/27/25 07/08/25 07/08/25 Rx #180 tabs metoprolol succinate 25 mg capsule 37.5 mg (1.5 x 25 mg) PO DAILY #45 06/27/25 07/08/25 07/08/25 Rx sprinkle, ext. release 24 hr ea furosemide 20 mg tablet (Lasix) 20 - 40 mg (1 - 2 x 20 mg) PO .2pm 07/04/25 07/08/25 07/08/25 Rx #60 tabs furosemide 40 mg tablet (Lasix) 40 - 80 mg (1 - 2 x 40 mg) PO QAM 07/04/25 07/08/25 07/08/25 Rx #60 tabs amiodarone 200 mg tablet (Pacerone) 200 mg PO BID 30 days #60 tabs 07/07/25 07/08/25 07/08/25 Rx escitalopram oxalate 10 mg tablet 10 mg PO QAM #90 tabs 07/07/25 07/08/25 07/08/25 Rx sacubitril 24 mg-valsartan 26 mg 0.5 tab PO QPM 07/08/25 07/08/25 07/07/25 History tablet sacubitril 49 mg-valsartan 51 mg 1 tab PO DAILY 07/08/25 07/08/25 07/08/25 History tablet Allergies Allergy/AdvReac Type Severity Reaction Status Date / Time penicillin G Allergy HIVES Verified 07/08/25 15:19 Penicillins Allergy ALGY-Hives Verified 07/08/25 15:19 propoxyphene (From Allergy VERY SHORT Verified 07/08/25 15:19 Darvocet-N) OF BREATH PFSH Acute PFSH: Medical History (Updated 07/08/25 @ 19:25 by Andrea Delgado NP) Anticoagulation adequate with anticoagulant therapy Atrial fibrillation with controlled ventricular rate Systolic congestive heart failure Type 2 diabetes mellitus, without long-term current use of insulin Adult-onset obesity GERD (gastroesophageal reflux disease) Anxiety PAD (peripheral artery disease) Ischemic cardiomyopathy Primary hypertension Hyperlipidemia CAD (coronary artery disease) Surgical History S/P trigger finger release History of surgery on extremity 12/28/2014: Right groin and femoral artery exploration and primary repair of right femoral artery catheterization site History of carpal tunnel release History of femoropopliteal bypass Left common femoral artery bypass surgery performed by Dr. Carrillo on 12/15/2014 History of umbilical hernia repair History of cholecystectomy History of cardiac radiofrequency ablation Last in November 2024 S/P CABG x 3 GOMEZ to LAD, SVG to OM1, SVG to PDA Coronary angioplasty status 04/25/15: balloon angioplasty to PDA and PLB, GOMEZ to LAD patent, SVG to OM 1 patent, SVG to PDA patent. Prox RCA 60% stenosis. Family History Brother CAD (coronary artery disease) Diabetes Hyperlipidemia Hypertension Mother CAD (coronary artery disease) Cancer Diabetes Hyperlipidemia Hypertension Grandfather Cancer Father Diabetes Hyperlipidemia Hypertension Denies family history of Clotting disorder Dementia Psychiatric illness Chronic kidney disease (CKD) Suicide Anesthesia complication Bleeding disorder Family history of premature coronary artery disease Lung disease Stroke Social History Smoking and tobacco/nicotine status: former use of tobacco/nicotine Alcohol intake: never Substance/Drug Use: never Vitals/I&O/Wt Last Vital Signs Temp 97.6 F 07/08/25 15:13 Pulse 70 07/08/25 16:37 Resp 14 07/08/25 15:13 BP 117/58 07/08/25 16:37 Pulse Ox 95 07/08/25 16:37 O2 Del Method Room Air 07/08/25 16:37 07/08/25 07/08/25 07/08/25 06:59 14:59 22:59 Intake Total 0 / 0 Balance 0 / 0 Weight last 48 hrs Weight 113.852 kg Physical Exam Narrative: Constitutional: NAD Head: NC/AT Eyes: PERRLA, EOMI Ears: Normal external ears. Hearing intact to normal voice. Nose: Normal external nose. No epistaxis. Throat: MMM Respiratory: CTAB. No accessory muscle use. Cardiovascular: Irregular. + murmur Extremities: BLE edema 2-3+ Gastrointestinal: + abdominal distention / ascites Mild TTP at the right aspect of abdomen. NT. +BS Genitourinary: No almanzar catheter Musculoskeletal: Moves all extremities Skin: BLE with venous stasis changes, no open wounds noted or ecchymosis Data 07/08/25 15:46 07/08/25 15:46 Other Labs: Labs, 07/08/25 1546, reviewed Hemogram WBC 5.89 RBC 4.04 PLT 265 HGB 6.9 HCT 25.9 Chemistry Na 133 K 4.1 Cl 97 Ca 8.3 Glu 214 CO2 24 AG 16 BUN 24 Cr 1.5 eGFR 46.4 AST 20 ALT 14 ALP 136 T.Bili 1.3 Alb 3.8 T.Protein 6.2 HS Trop 16 -> 16.57 NT-proBNP 2764 CXR: Radiologist's impression: CXR 07/08/25 No focal airspace opacity. No pneumothorax or large pleural effusion. Heart size cannot be accurately assessed in this projection. Median sternotomy. Left chest wall AICD. No acute findings. A&P Assessment and plan 1. Microcytic anemia: 2. Acute on chronic systolic congestive heart failure: 3. Abdominal distention: Plan: # Microcytic anemia / Symptomatic anemia Patient denies signs of active bleeding - Trend HGB - Transfuse to keep HGB >/ 8, given underlying cardiac history 1u pRBC transfusion ordered in ED, receiving now - Add-on lab: iron studies, B12/folate - Will continue clopidogrel, but hold Eliquis # Abdominal distention # Elevated T.Bili - check abdominal ultrasound for ascites suspect elevated T.Bili due to hepatic congestion # Lvnrm-wr-wykmkpu HFrEF # Exertional dyspnea # Valvular heart disease Echo (06/17/25) Moderately increased left ventricular cavity size. Severely decreased left ventricular systolic function. LVEF 35 %. Global left ventricular hypokinesis. Grade II/IV diastolic dysfunction, moderately elevated filling pressures. Mildly thickened mitral valve. No mitral valve stenosis. Mild mitral valve regurgitation. Moderate aortic valve calcification. Aortic valve stenosis. Trace aortic valve regurgitation. Right atrial pressure is around 5 mm of mercury. CXR without acute cardiopulmonary findings HS Trop 16 -> 16.57 NT-proBNP 2764 - received 60 mg IV furosemide in ED x1 continue diuresing, with Bumex 1 mg BID - limited echo - BMP, Mg daily - ETHNOGRAPHIC MATERIALS CONSERVATOR GDMT... metoprolol succinate 37.5 QD, continue sacubitril-valsartan 49-51 AM and 24-26 PM, continue furosemide 40 mg QAM and 20 mg QPM - HOLD, will replace w/ Bumex IV while inpatient - Trend electolytes, replace accordingly - Daily weight, standing if able # AFIB amiodarone 200 mg BID apixaban 5 mg BID, HOLD # CAD (s/p 3v-CABG) Denies CP. - continue cardioprotective meds as noted in HF and AFIB section, as well as clopidogrel 75 mg daily ranolazine 500 mg BID clopidogrel 75 mg QD # Renal insufficiency # Hyponatremia In the setting of decompensated HF - Trend # DM 2T w/ hyperglycemia glyburide 5 mg daily # HLD - ETHNOGRAPHIC MATERIALS CONSERVATOR on simvastatin 20 mg daily, continue PDMP PDMP Reviewed: Not Reviewed Attestations Medical Necessity Statement*: Patient admitted under observation. Patient requires hospitalization at least 2 midnights due to severity of acute decompensated heart failure and symptomatic anemia, both which poses intermediate risk of clinical deterioration without continuous hospital level management. Therefore, inpatient admission with an expected length of stay at least 2 midnights is medically necessary. Coding Level of Care Code 06660 Diagnoses Microcytic anemia D50.9 Acute on chronic systolic congestive heart failure I50.23 Heart failure chronicity: acute on chronic Heart failure type: systolic Abdominal distention R14.0
--- NOTE | 2025-07-08 17:38 | ECG_ITS ---
[facility] Date: 2025-07-08 Pat Name: Dwayne Salinas Department: Room: Gender: Male Attendant [employer]: : 1955 Requested By: Meaghan Hendrix Order Number: [id number] Goff MD: Gregorio Guerra M.D. Measurements Intervals [place] Rate: 69 P: 168 ND: 366 QRS: 66 QRSD: 133 T: 149 QT: 422 QTc: 454 Interpretive Statements ELECTRONIC ATRIAL PACEMAKER ATRIAL PACED VENTRICULAR SENSED RHYTHM INTRAVENTRICULAR CONDUCTION DELAY [130+ ms QRS DURATION] POSSIBLE ANTERIOR MYOCARDIAL INFARCTION , PROBABLY OLD [30 ms Q WAVE IN V3/V4, OR R < 0.2 mV IN V4] Compared to ECG 07/08/2025 15:24:56 NO SIGNIFICANT CHANGE Electronically Signed On 07-12-2025 17:59:04 BUSINESS PLANNING ANALYST by Gregorio Guerra M.D. [email or web address]
--- NOTE | 2025-07-08 18:24 | PC.NURSE ---
Addendum entered by Diana Waldron RN 07/08/25 18:38: Patient has 1 unit of blood running at 240 ml/hr Original Note: Patient transferred from ED to CSU via a bed at 1825.
[2025-07-08 18:25] LABS: Troponin 5 2HR 16.57 ng/L (0-15); Troponin 5 2HR Delta 0.57 ABS# (0-10)
--- NOTE | 2025-07-08 18:41 | USR_ITS ---
PROCEDURE INFORMATION: Exam: US Abdomen Complete Exam date and time: 07/08/2025 8:36 PM Age: 69 years old Clinical indication: Other: Abdominal distention; Additional info: Abdominal distention, elevated bilirubin, please also check for ascites TECHNIQUE: Imaging protocol: Real-time ultrasound of the abdomen with image documentation. Complete exam. COMPARISON: CT chest wo taisha [id number] 08/22/2022 6:57 AM FINDINGS: Liver: The liver measures 20.9 cm in length. No mass. Increased echogenicity and heterogeneous echotexture. Gallbladder: Surgically absent. Biliary ducts: Normal. No stones. No dilation. The common bile duct measures 0.4 cm in diameter. Pancreas: Visualized pancreas is unremarkable. Right kidney: Normal. No mass. No hydronephrosis. Right kidney measures 11.3 cm in length. Left kidney: Normal. No mass. No hydronephrosis. Left kidney measures 12.1 cm in length. Spleen: Normal. No splenomegaly. Intraperitoneal space: Trace perihepatic ascites. Aorta: The proximal aorta measures 2.8 cm, the mid aorta measures 2.7 cm, and the distal aorta measures 2.1 cm. Inferior vena cava: Normal. Hepatic veins: Pulsatile bidirectional flow in the main hepatic vein. Portal venous: Hepatopetal flow in the main portal vein. Mildly pulsatile flow is also seen within the main portal vein. US/US abdomen complete* [id number] IMPRESSION: 1. Trace perihepatic ascites. 2. Pulsatile bidirectional flow in the main hepatic vein and mildly pulsatile flow in the main portal vein. Findings can be seen with tricuspid regurgitation/right heart failure and cirrhosis among other etiologies. Correlate with clinical findings. 3. 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 Follow-up imaging in 5 years is recommended. 4. Hepatomegaly with hepatic steatosis. 5. Status post cholecystectomy.
--- NOTE | 2025-07-08 19:09 | USCV_ITS ---
Dwayne Salinas Age: 69 Gender: M : 1955 Exam Date: 07/08/2025 20:07 Ordering Phys: Andrea Delgado NP Technologist: STEVEN Exam Location: [facility] [place] Indication: reassess EF, continues to be dyspneic History of HTN, CAD s/p CABG January 2025, Hx Afib s/p ablation, ICM, DM2, anemia BP: 127 / 65 HR: 75 Rhythm: Paced rhythm Technical Quality: Adequate MEASUREMENTS (Male / Female) Normal Values 2D ECHO LV Diastolic Diameter PLAX 6.0 cm 4.2 - 5.9 / 3.9 - 5.3 cm IVS Diastolic Thickness 1.1 cm 0.6 - 1.0 / 0.6 - 0.9 cm IVS Systolic Thickness 1.2 cm LVPW Diastolic Thickness 0.8 cm 0.6 - 1.0 / 0.6 - 0.9 cm LVPW Systolic Thickness 0.9 cm LV Ejection Fraction 2D Teich 20.1 % LV Ejection Fraction MOD 4C 20.3 % LV Ejection Fraction MOD 2C 34.4 % LV Ejection Fraction 2C AL 32.8 % IVC Diameter 2.1 cm DOPPLER TR Peak Velocity 303.0 cm/s TR Peak Gradient 36.7 mmHg FINDINGS Left Ventricle Dilated LV cavity. Severely reduced LV systolic functions with global hypokinesis. Estimated LVEF 20%. Right Ventricle Dilated RV with moderately reduced RV systolic function. ICD/pacemaker lead in right ventricle and right atrium across the tricuspid valve Right Atrium Mildly dilated right atrium Left Atrium Markedly dilated left atrium IA Septum Mitral Valve Aortic Valve Tricuspid Valve ICD/pacemaker lead across the bicuspid valve. Thickened tricuspid valve. Moderately severe tricuspid regurgitation. Pulmonic Valve Pericardium No pericardial effusion. Aorta IVC CONCLUSIONS Limited echo to assess LV functions. Dilated cavity with severely reduced LV systolic function with a global hypokinesis. LVEF estimated at 20%. Moderately reduced RV systolic function. Moderately severe tricuspid regurgitation (ICD/pacemaker lead placed in RV) Henok Aaron MD (Electronically Signed) Final Date: 09 July 2025 12:19 S
[2025-07-08 20:07] LABS: Iron 14 ug/dL (59-158); Total Iron Binding Capacity 456 mcg/dl; Unsaturated Iron Binding 442 ug/dL (112-347)
[2025-07-08 20:22] LABS: Vitamin B12 1527 pg/mL (232-1245)
[2025-07-08] MEDS: ATORVASTATIN 20 MG TABLET PO (21:26)
--- NOTE | 2025-07-08 21:38 | ECG_ITS ---
[facility] Test Date: 2025-07-09 Pat Name: Dwayne Salinas Department: Room: 105 Gender: Male Director [employer]: : 1955 Requested By: Meaghan Hendrix Order Number: [id number] [place] MD: Henok Aaron M.D. Measurements Intervals [place] Rate: 69 P: 179 MS: 356 QRS: 64 QRSD: 125 T: 161 QT: 418 QTc: 450 Interpretive Statements ELECTRONIC ATRIAL PACEMAKER, prolonged MS POSSIBLE ANTERIOR MYOCARDIAL INFARCTION , PROBABLY OLD [30 ms Q WAVE IN V3/V4, OR R < 0.2 mV IN V4] ABNORMAL RHYTHM ECG Compared to ECG 07/08/2025 17:33:29 Myocardial infarct finding still present Electronically Signed On 07-10-2025 18:06:07 MONTESSORI LEAD TEACHER by Henok Aaron M.D. [email or web address] [id number]
[2025-07-09] VITALS (12 sets, daily range): BP systolic 108–133; BP diastolic 53–74; PULSE 69–75; RESP 11–29; TEMP 36.1–36.9; O2SAT 94–99; BMI 36.1
[2025-07-09 00:29] LABS: Troponin 5 6HR 21.38 ng/L (0-15); Troponin 5 6HR Delta 5.38 ng/L (0-12)
[2025-07-09] MEDS: ranolazine (12HR) 500 mg Tablet PO ×2 (05:37→17:34)
[2025-07-09] MEDS: SACUBITRIL/VALSARTAN 49-51 TABLET 1 EACH PO (05:37)
[2025-07-09 06:37] LABS: Alanine Aminotransferase 16 U/L (0-41); Albumin Level 3.6 g/dL (3.5-5.2); Alkaline Phosphatase 137 U/L (40-130); Anion Gap 18.9 (5-19); Aspartate Amino Transferase 23 U/L (0-40); Blood Urea Nitrogen 23 mg/dL (8-23); Calcium 8.5 mg/dL (8.5-10.5); Carbon Dioxide 21 mmol/L (22-29); Chloride 100 mmol/L (98-107); Globulin 2.7 g/dL (1.3-4.6); Glucose 108 mg/dL (65-115); Magnesium 2.5 mg/dL (1.7-2.3); Osmolality Calculated 286 mOsm/kg (285-295); Potassium 3.9 mmol/L (3.5-5.1); Sodium 136 mmol/L (136-145); Total Protein 6.3 g/dL (6.6-8.7)
[2025-07-09 08:16] LABS: Hematocrit 28.9 % (37-53); Hemoglobin 8.00 g/dL (11.27-16.99); Mean Corpuscular HGB Conc 27.7 g/dL (30-55); Mean Corpuscular Hemoglobin 17.9 pg (27-33); Mean Corpuscular Volume 64.7 fl (82-101); Nucleated Red Blood Cells % 0.3 %; Platelet Count 288 10^3/cmm (157-399); Red Blood Count 4.47 10^6/uL (3.85-5.65); White Blood Count 6.52 10^3/uL (3.29-11.43)
--- NOTE | 2025-07-09 09:07 | PC.CHAP ---
Pastoral Care Encounter/Spiritual Assessment Type of Contact [] Declined inventory assistant visit [] Patient/Family/Request visit [] Outpatient visit [] Follow-up visit [] Physician referral [] Code/Alert [x] Routine visit [] Staff referral [] Actively dying [] Patient sleeping [x] Family support [] [] Out of room [] Palliative care [] [] Receiving care in room [] Pre-surgical visit [] Trauma [] Long length of stay [] ICU visit [] Other: Relational/Emotional Strength [x] Patient feels connected with others/family/visitors/staff [] Distress [] Loneliness/isolation [] Abandonment Spirituality of Patient [x] Person of Herminia [x] Attends Scientologist of their Herminia [x] Believes in Prayer [x] Reads Bible or Mandaeism materials [] There are Spiritual issues to be addressed Labor Relations Or Personnel Negotiator Interventions [x] Prayer [x] Active listening [] Non-anxious presence [x] Spiritual/emotional support [] Crisis/trauma care [] Spiritual counseling [] Bereavement support [] Provided bereavement packet [] Provided Bible/devotional materials [] Provided toy/stuffed animal, coloring book to patient or family member [] Provided Communion [] Anointing/[place] [] Salvation [x] Completed spiritual assessment [] Other: Impact on Illness or Injury [] Angry [] Fearful [] Anxious [] Often cries [] Exhaustion [] Unable to work [] Unable to attend sabianism [] Unable to walk/stand [] Unable to read [] Unable to drive [] Unable to eat/drink [] Unable to sleep [] Unable to be with family [] Patient intubated [] Other: Summary Time spent with patient 5 min
[2025-07-09] MEDS: bumetanide 0.25 mg/mL SDV 4 mL 2 MG IVP ×2 (09:08→21:55)
[2025-07-09 09:57] LABS: Alanine Aminotransferase 14 U/L (0-41); Albumin Level 3.6 g/dL (3.5-5.2); Alkaline Phosphatase 136 U/L (40-130); Anion Gap 14.7 (5-19); Aspartate Amino Transferase 20 U/L (0-40); Blood Urea Nitrogen 20 mg/dL (8-23); Calcium 8.2 mg/dL (8.5-10.5); Carbon Dioxide 25 mmol/L (22-29); Chloride 99 mmol/L (98-107); Globulin 2.8 g/dL (1.3-4.6); Glucose 193 mg/dL (65-115); Osmolality Calculated 288 mOsm/kg (285-295); Potassium 3.7 mmol/L (3.5-5.1); Sodium 135 mmol/L (136-145); Total Protein 6.4 g/dL (6.6-8.7)
--- NOTE | 2025-07-09 10:44 | PC.NURSE ---
per verbal order from Dr Cornejo, place almanzar catheter. Patient agreeable.
--- NOTE | 2025-07-09 13:29 | PM.PN ---
Subjective Subjective: He reports he has been regaining some strength ever since getting the transfusion. He has been quite edematous recently and has not been responding to his home Lasix despite increase in dose recently. He has had significant edema including his thighs and lower abdomen. Vitals/I&O/Wt Last Vital Signs Temp 96.9 F L 07/09/25 07:27 Pulse 70 07/09/25 12:00 Resp 11 L 07/09/25 12:00 BP 118/63 07/09/25 12:00 Pulse Ox 96 07/09/25 12:00 O2 Del Method Room Air 07/09/25 04:00 07/08/25 07/09/25 07/09/25 22:59 06:59 14:59 Intake Total 350 / 350 480 / 480 Output Total 600 / 600 2250 / 2250 Balance 350 / 350 -600 / -250 -1770 / -1770 Weight last 48 hrs Weight 117.4 kg Weight 122 kg Weight 113.852 kg Physical Exam Const: COMMON NORMALS: patient oriented x3 and alert GENERAL APPEARANCE: cooperative ORIENTATION/CONSCIOUSNESS: Yes awake HENMT: COMMON NORMALS: oropharynx normal Neck/C-Spine: COMMON NORMALS: no JVD Resp: COMMON NORMALS: normal respiratory effort and clear to auscultation bilaterally AUSCULTATION: clear to auscultation bilaterally Cardio: COMMON NORMALS: no JVD, regular rhythm, S1 normal heart sound present, S2 normal heart sound present and No murmurs present (Cardio) RHYTHM: regular rhythm HEART SOUNDS: S1 normal heart sound present and S2 normal heart sound present GI: COMMON NORMALS: Normal to inspection, nondistended, normoactive bowel sounds present, Soft to palpation and non-tender PALPATION: Yes Soft to palpation Extremity: COMMON NORMALS: no joint enlargement OTHER: Anasarca, including edema up to thighs and lower abdomen Neuro: COMMON NORMALS: patient oriented x3 and moves all extremities SENSORIUM/ORIENTATION: Yes alert Skin: COMMON NORMALS: no rashes or lesions noted GENERAL SKIN EXAM: no rashes or lesions noted Urinary Catheter Management: Carter: Cath Placed During This Visit: yes Urinary Catheter Date of Insertion: 07/09/25 Urinary Catheter Time of Insertion: 11:28 Data 07/09/25 07:55 07/09/25 09:21 A&P Assessment and plan 1. Microcytic anemia: 2. Acute on chronic systolic congestive heart failure: 3. Abdominal distention: Plan: # Fonlr-kv-jxcipon HFrEF Acute systolic and diastolic congestive heart failure with anasarca, continue IV diuresis, increased IV Bumex dose to 2 mg every 12 hours. Monitor intake and output. Reassess chemistry. Monitor for risk of Juliette deficiency, DIGNA, hypovolemia. Reassess volume status, chemistry. Reviewed CBC, CMP, magnesium, limited echocardiogram obtained. EF noted 20%. Compared to prior EF down from 35%. Has had recent cath with revascularization of LAD. Discussed with cardiology. At current time continue medical management. Will benefit from follow-up after discharge in office. Discussed with nursing, geriatric case manager. # Microcytic anemia / Symptomatic anemia Patient denies signs of active bleeding Status post 1 unit RBC transfusion, hemoglobin up to 8 on review today. Platelet count reviewed, normal. Repeat blood counts. Discussed iron studies with him and his . Noted iron deficiency anemia on review of TIBC, ferritin. He has had a prior colonoscopy and EGD but it has been a while. - Will continue clopidogrel, but hold Eliquis # Abdominal distention # Elevated T.Bili - check abdominal ultrasound for ascites suspect elevated T.Bili due to hepatic congestion # Exertional dyspnea # Valvular heart disease Echo (06/17/25) Moderately increased left ventricular cavity size. Severely decreased left ventricular systolic function. LVEF 35 %. Global left ventricular hypokinesis. Grade II/IV diastolic dysfunction, moderately elevated filling pressures. Mildly thickened mitral valve. No mitral valve stenosis. Mild mitral valve regurgitation. Moderate aortic valve calcification. Aortic valve stenosis. Trace aortic valve regurgitation. Right atrial pressure is around 5 mm of mercury. CXR without acute cardiopulmonary findings HS Trop 16 -> 16.57 NT-proBNP 2764 # AFIB amiodarone 200 mg BID apixaban 5 mg BID, HOLD # CAD (s/p 3v-CABG) Denies CP. - continue cardioprotective meds as noted in HF and AFIB section, as well as clopidogrel 75 mg daily ranolazine 500 mg BID clopidogrel 75 mg QD # Renal insufficiency # Hyponatremia In the setting of decompensated HF - Trend # DM 2T w/ hyperglycemia glyburide 5 mg daily # HLD - BUSINESS PRACTICES OFFICER on simvastatin 20 mg daily, continue PDMP PDMP Reviewed: Not Reviewed Attestations Medical Necessity Statement*: Continue admission for assessment of acute CHF, reassessment after acute on chronic anemia. Diagnoses Microcytic anemia D50.9 Acute on chronic systolic congestive heart failure I50.23 Heart failure chronicity: acute on chronic Heart failure type: systolic Abdominal distention R14.0
--- OUTSIDE RECORDS SUMMARY | 2025-07-09 14:09 | XMS_ITS | Clinical Summary ---
Author Organization [facility] Address [address] [place] [address] Care Team Providers Care Social Insurance Administrator Name Role Phone Teodoro Jon DO Primary Care Provider Allergies Active Allergy Reactions Criticality Noted Date [...] on file Legal Sex Male 5:09 AM PRINCIPAL ACCOUNT CLERK Gender Identity Not on file Sexual [...] 36.2 C (97.2 F) 09/03/2020 8:35 AM PRINCIPAL ACCOUNT CLERK Respiratory Rate 16 09/03/2020 8:59 AM PRINCIPAL ACCOUNT CLERK Oxygen Saturation 93% 09/03/2020 8:59 AM PRINCIPAL ACCOUNT CLERK Inhaled Oxygen Concentration - - Weight [...] Advance Directives For more information, please contact: [phone] * Full Code (Latest Code Status on [...] 4:41 PM 05/02/2013 12:04 PM Care Teams Social Insurance Administrator Relationship Specialty Start Date End Date Teodoro Jon DO [facility] [place] [id number] PCP - General Family Practice 03/19/20
--- OUTSIDE RECORDS SUMMARY | 2025-07-09 14:09 | XMS_ITS | Data Portability ---
Author Organization [facility]ita Puentes [facility] Address [address] [place] [address] Assessment Encounter Date Assessment Date Assessment LastModified by Organization Details LastModified Time 01/16/2025 01/16/2025 A Care Coordination Assessment form was filled out as part of this patient's office visit today. [email or web address] Not available 01/16/2025 12:04:25 Plan of Treatment Reminders Order Date Submit Date Provider Last Modified By Organization Details Last Modified Time Details Appointments None recorded. Lab None recorded. Referral None recorded. Procedures colonoscopy , with removal of tumor, polyp or lesion (PROC) [address] [facility], [address] , [place], [address], 11:56:24 Surgeries None recorded. Imaging None recorded. Medication Orders prednisone 20 mg tablet 2022 023 [facility], [address], [place], [address], 5 15:48:48 doxycycline hyclate 100 mg capsule 2022 023 [facility], [address], [place], [address], 5 15:48:38 meloxicam 15 mg tablet [address] [facility], [address], [place], [address], 5 11:59:10 Patient TargetsNo targets recorded. Patient Instructions Encounter Date Encounter Id Patient Instructions Last Modified By Organization Details Last Modified Time 11/21/2022 [id number] Patient honey carter take him to the ER by private vehicle. 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 Report is given to the ER by nursing staff. [email or web address] Not available 11/21/2022 21:08:26 Reason for Referral None Reported. Problems Name Problem SNOMED Code Status Onset Date Resolution Date Notes Provider Name and Address Organization Details Recorded Time Heart disease 15370391 Active 2022 Heart Disease ; 023 9:31AM by TITO Perez, Office Visit; Promote d; acuity set as *; Not Available [facility] 3 03:10:34 History of anxiety state 590890174 Active 2022 Anxiety /Depres romelia; 023 9:31AM by TITO Perez, Office Visit; Promote d; acuity set as *; Not Available [facility] 3 03:10:34 Hypercholest erolemia 81077649 Active 2022 Hyperch olester olemia; 023 9:31AM by TITO Perez, Office Visit; Promote d; acuity set as *; Not Available [facility] 3 03:10:34 Benign essential hypertension 5917242 Active 2022 Hyperte nsion; 023 9:31AM by TITO Perez, Office Visit; Promote d; acuity set as *; Not Available [facility] 3 03:10:35 Acute bronchitis 81397305 Active 2022 Armin Lewis DO [address] [place] [address], [address] , [facility] 3 13:50:47 Screening for malignant neoplasm of colon Active 2024 Armin Lewis DO [address] [place] [address], [address] , [facility] 12:04:47 Essential hypertension 79534678 Active 2024 Armin Lewis [address], [address] , [facility] 12:15:13 Mixed hyperlipidem ia 105508204 Active 2024 Arminevie Lewis[address] , [facility] 12:15:15 Chronic systolic heart failure 520787925 Active 2024 Arminevie Lewis[address] , [facility] 12:15:16 History of atrial fibrillation 788627796 Active 2024 Arminevie Lewis[address] , [facility] 12:16:20 Gastroesopha geal reflux disease 635525311 Active 2024 [place] [address] , [facility] 12:16:21 Problem Notes None recorded. Procedures Surgical History Date Name Laterality Status Provider Name and Address Organization Details Recorded Time 5 jr suture/stapl e removal completed TITO JOHNSON [address] [place] [address], [facility] 10/26/2024 17:18:26 Imaging Results None recorded. Procedure Notes None recorded. Medical Equipment None Reported. Allergies Allergen ID Allergen Name Allergen Category Reaction Reaction Severity Criticality Documentation Date Start Date Code Code System Note Provider Name and Address Organization Details Recorded Time 40578 propoxyph blessing hydrochlo ride medicatio n rash Not available Not available 03/11/2023 59289 RxNorm React ion: Rash; Comme nt: Recor ded 09/28 9:31A M by TITO Godoy, Offic e Visit ; Promo qian; Faisal crowe ce: *; Reaso n: Drug aller gy; ; Not Available [facility] 3 02:23:45 56619 Product containin g penicilli n (product) medicatio n anaphylax is Not available Not available 03/11/2023 47970 8001 SNOMED React ion: Anaph ylaxi s; Comme nt: Recor ded 09/28 9:31A M by TITO Godoy, Offic e Visit ; Promo qian; Faisal crowe ce: *; ; Not Available [facility] 3 02:23:45 Medications Name Sig Start Date [...] mass index (BMI) Body weight Oxygen saturation Body temperature Heart rate Systolic And Diastolic Provider Name and Address Organization Details Last Updated DateTime 5 180.34 cm 35.4 kg/m2 172530. 46 g 95 % 98.6 [degF] 86 /min 118/58 mm[Hg] Saray Knott [facility] 5 15:54:36 Date Recorded Body weight Oxygen saturation Heart rate Respiratory rate Body temperature Systolic And Diastolic Provider Name and Address Organization Details Last Updated DateTime 3 825638. 97 g 94 % 76 /min 20 /min 97.5 [degF] 112/68 mm[Hg] MAURICE AVENDAÑONEMESIO [facility] 3 16:38:27 Date Recorded Body height Body mass index (BMI) Body weight Oxygen saturation Heart rate Respiratory rate Systolic And Diastolic Provider Name and Address Organization Details Last Updated DateTime 5 180.34 cm 34.2 kg/m2 622026. 13 g 96 % 88 /min 18 /min 112/60 mm[Hg] [facility] 5 11:53:16 Date Recorded Body height Body mass index (BMI) Body weight Oxygen saturation Heart rate Respiratory rate Body temperature Systolic And Diastolic Provider Name and Address Organization Details Last Updated DateTime 3 177.8 cm 37.2 kg/m2 536790. 42 g 98 % 78 /min 20 /min 98.7 [degF] 140/80 mm[Hg] ROSA HERNANDEZ [facility] 3 11:32:45 Date Recorded Body height Body mass index (BMI) Body weight Heart rate Oxygen saturation Respiratory rate Body temperature Systolic And Diastolic Provider Name and Address Organization Details Last Updated DateTime 3 177.8 cm 36.6 kg/m2 707352. 05 g 72 /min 91 % 22 /min 98.4 [degF] 126/74 mm[Hg] [facility] 3 13:39:53 Social History None recorded. Functional Status Question Answer Note LastModified by Organizat ion Details LastModified Time Do you use any illicit or recreational drugs? No [email or web address] Information not available 07/04/2023 Do you or have you ever used any other forms of tobacco or nicotine? No [email or web address] Information not available 07/04/2023 What is your level of alcohol consumption? None [email or web address] Information not available 07/04/2023 Mental Status None recorded. Family History Nothing Reported. Medical History No medical history recorded. Immunizations Vaccine Type Date Status Note Provider Nam e and Address Organization Details Recorded Time pneumococcal polysaccharide PPV23 5 completed Not Available [facility] 01/16/2025 11:25:23 zoster live 6 completed Not Available [facility] 01/16/2025 11:25:23 Influenza, split virus, quadrivalent, PF 8 completed Not Available [facility] 01/16/2025 11:25:23 Tdap 1 completed Not Available [facility] 01/16/2025 11:25:23 zoster recombinant 3 completed Not Available [facility] 01/16/2025 11:25:23 Pneumococcal conjugate PCV15, polysaccharide IMY290 conjugate, adjuvant, PF 3 completed Not Available [facility] 01/16/2025 11:25:23 Tdap 3 completed Not Available [facility] 01/16/2025 11:25:23 zoster recombinant 3 completed Not Available [facility] 01/16/2025 11:25:23 Influenza, high-dose, quadrivalent, PF 3 completed Not Available [facility] 01/16/2025 11:25:23 Influenza, high-dose, trivalent, PF 4 completed Not Available [facility] 01/16/2025 11:25:23 Past Encounters Encounter ID Performer Location Encounter Start Date Encounter Closed Date Diagnosis/Indication Diagnosis SNOMED-CT Code Diagnosis ICD10 Code Diagnosis IMO Codes Diagnosis Note [id number] TITO COOLEY [facility] [address] [place] [phone] 11/21/2022 16:00:33 11/28/2022 14:45:04 Dyspnea 449175589 R06.02 Recommend patient go to ER for CHF evaluation . [id number] RAUL LI PA-C [facility] ([facility]) [address] [place] [phone] 06/16/2023 11:22:28 06/22/2023 11:32:47 Sprain of medial collateral ligament of knee 91778870 S83.411A has brace at home ok to wearIce tid Rest. gentle ROMIf still swollen and tender in 1-2 week f/u with PCP to discuss if MRI or PT more appropriat e [id number] Armin Lewis DO [facility] ([facility]) [address] [place] [address] 07/04/2023 12:49:11 07/04/2023 13:57:07 Cough 42233322 R05.9 Acute bronchitis 6730824 2 J20.9 Concern for developing pneumonia. We will start prednisone and doxycyclin e. Return with worsening. [id number] TITO JOHNSON [facility] [address] [place] [phone] 10/26/2024 15:42:35 10/28/2024 11:47:08 Removal of sutures done 8554384815 39375 Z48.02 Removed sutures without incident. Patient instructed to keep area clean and dry. May apply REX bid. Notify clinic with any signs or symptoms of infection. [id number] Armin Lewis DO [facility] ([facility]) [address] [place] [phone] 01/16/2025 11:25:06 01/17/2025 16:53:12 Screening for malignant neoplasm of colon 556131204 Z12.11 I have reviewed and discussed colon cancer screening options, including colonoscop y. Discussed risks vs benefits including risk of infection and bleeding, perforatio n, possible need for surgery, reaction to medication s, and sever injury or . We discussed pt requiring sedation and possible general anesthesia . Pt agrees to proceed with Colonoscop y at [facility]. Preliminar y procedure date will be 02/27/25 He has appt with Dr. Denis, cardiology to consider stopping eliquis on 02/17/25.we will continue plavix. hold glyburide and Invokanna after taking AM dose the day before procedure. Chronic sy stolic heart failure 130268500 I50.22 952853 stable. continue care with cardiology Mixed hyperlipidemia 267 907210 E78.2 69508 stable. continue simvastati n Essential hypertension 61920179 I10 31682 stable. continue carvedilol . Gastroesop hageal reflux disease 633540595 K21.9 78054632 History of atrial fibrillation 531417307 Z86.[id number] Denis, josefa siologist at [facility] again in early february. s/p ablation in [...] ID Jolly Member ID Guarantor Name 02/25/2025 [place] - [place] A - [facility] (MEDICARE) Dwayne Salinas [id number] Dwayne Salinas 02/25/2025 1 MEDICARE B-[place]: [facility] Dwayne Salinas [id number] Dwayne Salinas 02/24/2025 2 [employer] (MEDICARE SUPPLEMENT) Dwayne Salinas [id number] Dwayne Salinas Notes Date Note Type Note Provider Name and Address Organization Details Recorded Time 3 text/html DyspneaReported by PatientHPIFor quality, patient reportstightness,pressure, can't catch breath, andbreathlessness. For associated symptoms, patient reportschest pain/discomfort,fatigue,an kle swelling,lightheadedness,w eakness, anddecrease in exercise capacity. For duration, patient reportsfor 4 days.Reports his professor of exercise science increased his entresto dosage 5 days ago. Reports worsening SOB, fatiguq, dizziness, and edema since.ROS as noted in the HPI JACKIE PEREZ, [employer] [address] [place], [address], [facility] 11/21/2022 21:10:21 3 text/html Musculoskeletal PainReported by [...] to this knee RAUL LI PA-C [address] [place], [address], [facility] 06/19/2023 10:44:35 3 text/html CoughReported by [...] 1 year ago. Armin Lewis DO [address] [place], [address], [facility] 07/04/2023 13:54:14 5 text/html ROS as noted in the HPI Walk inhad ablation on 10/23 Dr Denis, sutures to groin B/L told to remove at 48 hours. Here for suture removal. SERGE KALPESH, [employer] [address] [place], [address], [place] Irma [facility] Kadie Abdullahi 10/26/2024 17:19:51 text/html Colonoscopy ScreeningReported by PatientColonoscopy ScreeningFor context, [...] Thinners: Eliquis and Plavix seeing Dr Denis, regional branch manager at [facility] again in early february. s/p ablation in october 2024 which treated a flutter/afib. no longer in afib. Co-morbidities: Afib with pacemaker, CAD, DM with a1c of 7.2 in october 2024, CHF. Armin Lewis DO [address] [place], [address], [place] Irma [facility] Kadie Abdullahi 01/16/2025 12:18:28
--- OUTSIDE RECORDS SUMMARY | 2025-07-09 14:09 | XMS_ITS | Encounter Summary ---
Author Organization [facility] Address [address] [place] [address] Care Team Providers Care Controls Project Engineer Name Role Phone Teodoro Jon DO Primary Care Provider [phone] Reason for Referral * Outpatient Services (Routine) - Closed Specialty Diagnoses / Procedures Referred By Contac t Referred To Contact Diagnoses PVC's (premature ventricular contractions) Procedures CL STUDY POSS ABLATION Ana Denis MD [address] [place] [address] Phone: tel: fax: Referral ID Status Reason Start Date Expiration Date Visits Re quested Visits Authorized [id number] Closed 04/08/2013 05/09/2014 1 1 Encounter Details Date Type Department Care Team (Late st Contact Info) Description 04/08/2013 Ancillary Orders [facility] Cardiology- [place] [address] [place] [address] Ana Denis MD [address] [place] [address] PVC's (premature ventricular contractions) (Primary Dx) [...] on file 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 PRE-PROCEDURE DIAGNOSES: 1. Symptomatic refractory premature ventricular contractions. 2. Hypertension. 3. Msl-qngxonv-ugagxmptr diabetes. 4. Hyperlipidemia. 5. Myocardial infarction and history of bypass surgery. POST-PROCEDURE DIAGNOSES: 1. Symptomatic refractory premature ventricular contractions. 2. Hypertension. 3. Jnq-rwnrbil-jdznnzjdo diabetes. 4. Hyperlipidemia. 5. Myocardial infarction and history of bypass surgery. 6. Status post PVC ablation, PVC at left inferior septal area LV. MATERIALS USED: 1. 5-, 6-, 5-British sheath to the left femoral veins for [...] electrically record His bundle, RV, and HRA. 7-British sheath to the right femoral artery, later [...] before ablation as following: QTC is 432, TN 206, HR is 105, AH is 122, HV is 60, cycle length 725 milliseconds. Atrial decremental pacing post ablation 1:1 until 400 milliseconds, and there is no VA conduction post ablation with ventricular pacing which was done. AV jennifer ERP reached at 600/340 post ablation, and then 1 mcg/min of isoproterenol was infused at steady state. We repeated EP study, baseline as following: TN is 185, QRS is 130, QT is [...] femoral vein changed to the short sheath 8-British. FINAL SUMMARY: 1. Mildly prolonged HV. 2. PVC originally from the LV inferior septal area which was ablated. Post ablation, no more PVC seen. No other significant arrhythmia can be identified. SCL/jaw - transcribed in Epic - Procedure Note Ana Denis MD - 05/03/2013 TYPE OF PROCEDURE: PVC ablation. PRE-PROCEDURE DIAGNOSES: 1. Symptomatic refractory premature ventricular contractions. 2. Hypertension. 3. Kis-oepghvn-jmojyqxyb diabetes. 4. Hyperlipidemia. 5. Myocardial infarction and history of bypass surgery. POST-PROCEDURE DIAGNOSES: 1. Symptomatic refractory premature ventricular contractions. 2. Hypertension. 3. Bnt-dveisqy-lyqipxwle diabetes. 4. Hyperlipidemia. 5. Myocardial infarction and history of bypass surgery. 6. Status post PVC ablation, PVC at left inferior septal area LV. MATERIALS USED: 1. 5-, 6-, 5-British sheath to the left femoral veins for [...] can electrically record His bundle, RV,and HRA. 7-British sheath to the right femoral artery, later [...] Baseline beforeablation as following: QTC is 432, TN 206, HR is 105, AH is 122, HV is60, cycle length 725 milliseconds. Atrial decremental pacing postablation 1:1 until 400 milliseconds, and there is no VA conduction postablation with ventricular pacing which was done. AV jennifer ERP reached at600/340 post ablation, and then 1 mcg/min of isoproterenol was infused atsteady state. We repeated EP study, baseline as following: TN is 185,QRS is 130, QT is 415, [...] right femoral vein changed to the short sheath8-British. FINAL SUMMARY: 1. Mildly prolonged HV. 2. PVC originally from the LV inferior septal area which was ablated.Post ablation, no more PVC seen. No other significant arrhythmia can beidentified. SCL/jaw - transcribed in [email or web address] - us Ana Denis MD FLUOROSCOPY ORDERABLES Final Result [facility] documented in this encounter Visit Diagnoses Diagnosis PVC's (premature ventricular contractions)- Primary Other premature beats Frequent PVCs- Primary Other premature beats PVC's (premature ventricular contractions) Other premature beats documented in this encounter Care Teams Controls Project Engineer Relationship Specialty Start Date End Date Teodoro Jon DO [address] [place] [id number] PCP - General Family Practice 03/19/20 documented as of this encounter
--- OUTSIDE RECORDS SUMMARY | 2025-07-09 14:09 | XMS_ITS | Encounter Summary ---
Author Organization [facility] Address 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 Gender Identity Not on file Sexual Orientation Not on file documented as of this encounter Plan of Treatment Upcoming Encounters Date Type Department Care Team (Late st Contact Info) Description 09/08/2025 10:40 AM FIRST LINE PRODUCTION SUPERVISOR Office Visit [facility] [address] [facility] [address] [place] [phone] Ana Denis MD [address] [place] [address] Rayray May ANP [address] [place] [address] 10/09/2025 8:00 AM FIRST LINE PRODUCTION SUPERVISOR Procedure visit [facility] [address] [place] [address] Ana Denis MD [address] [place] [address] documented as of this encounter Visit Diagnoses Not on filedocumented in this encounter Care Teams Screw Machine Adjuster Automatic Relationship Specialty Start Date End Date Teodoro Jon DO [address] [place] [address] PCP - General 11/28/20 documented as of this encounter
--- OUTSIDE RECORDS SUMMARY | 2025-07-09 14:09 | XMS_ITS | Encounter Summary ---
Author Organization [employer] [facility] Address [address] [place] [address] Care Team Providers Care Hand Packager Name Role Phone Teodoro Jon DO Primary Care Provider [phone] Encounter Details Date Type Department Care Team (Latest Contact Info) Description 04/30/2003 Outpatient Historical [facility] Audei Rosales Jr., MD [address] [place] [address] HYPERTENSION NOS (Primary Dx); Pure hypercholesterolem; CRAMP IN LIMB Social History Tobacco Use Types Packs/Day Years Used Date Smoking Tobacco: Never Assessed Sex and Gender Information Value Date Recorded Sex Assigned at Not on file 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
--- OUTSIDE RECORDS SUMMARY | 2025-07-09 14:09 | XMS_ITS | Encounter Summary ---
Author Organization [employer] [facility] Address [address] [place] [address] Care Team Providers Care Reducing Salon Attendant Name Role Phone Teodoro Jon DO Primary Care Provider Encounter Details Date Type Department Care Team (Latest Contact Info) Description 06/04/2003 Outpatient Historical HIS [facility] Audie Rosales Jr., MD [address] [place] [address] ENDOCRINE/NERV TAMMIE NOS (Primary Dx); HYPOVOLEMIA Social History Tobacco Use Types Packs/Day Years Used Date Smoking Tobacco: Never Assessed Sex and Gender Information Value Date Recorded Sex Assigned at Not on file Legal 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
--- OUTSIDE RECORDS SUMMARY | 2025-07-09 14:09 | XMS_ITS | Encounter Summary ---
Author Organization [facility] Address [address] [place] [address] Care Team Providers Care Car Wrecker Name Role Phone Teodoro Jon DO Primary Care Provider [phone] Reason for Referral * Outpatient Services (Routine) - Closed Specialty Diagnoses / Procedures Referred By Contac t Referred To Contact Diagnoses Abnormal echocardiogram Congestive heart failure, unspecified CAD (coronary artery disease) Procedures MRI CARDIAC INTERPRETATION Scottie Valiente MD [address] [place] [address] Phone: tel: fax: Referral ID Status Reason Start Date Expiration Date Visits Re quested Visits Authorized [id number] Closed 09/24/2013 10/25/2014 1 1 SITE SPECIALIST Encounter Details Date Type Department Care Team (Latest Contact Info) Description 09/24/2013 [facility] [address] [place] [address] Scottie Valiente MD [address] [place] [address] Abnormal echocardiogram (Primary Dx); Congestive [...] on file Legal 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 Exam: MRI CARDIAC INTERPRETATION Date/Time of Exam: Sep 24, 2013 01:22:34 PM Reason For Exam: Nonspecific (abnormal) findings on radiological and other examination of other intrathoracic organs. Examination was performed for evaluation by cardiology. Initial program director scouting images nonspecific. GRISEL/evette 1337 PM - uploaded from [employer] - Procedure Note David Russo MD - 09/24/2013 IMPRESSION - see report below. Exam: MRI CARDIAC INTERPRETATION Date/Time of Exam: Sep 24, 2013 01:22:34 PM Reason For Exam: Nonspecific (abnormal) findings on radiological and other examination of other intrathoracic organs. Examination was performed for evaluation by cardiology. Initial program director scouting images nonspecific. GRISEL/evette 1337 PM - uploaded from [employer] - us Scottie Cecily Valiente MD MR ORDERABLES Final Result INTERFACE SYSTEM Refer to clinic/hospital department documented in this encounter Visit Diagnoses Diagnosis Abnormal echocardiogram- Primary Nonspecific (abnormal) findings on radiological and other examination of other intrathoracic organs Congestive heart failure, unspecified CAD (coronary artery disease) Coronary atherosclerosis of unspecified type of vessel, salt river or graft Abnormal echocardiogram Nonspecific (abnormal) findings on radiological and other examination of other intrathoracic organs Congestive heart failure, unspecified CAD (coronary artery disease) Coronary atherosclerosis of unspecified type of vessel, salt river or graft documented in this encounter Care Teams Car Wrecker Relationship Specialty Start Date End Date Teodoro Jon DO [address] [place] [phone] PCP - General Family Practice 03/19/20 documented as of this encounter
--- OUTSIDE RECORDS SUMMARY | 2025-07-09 14:09 | XMS_ITS | Encounter Summary ---
Author Organization [facility] Address [address] [place] [address] Care Team Providers Care Metal Wire Coating Operator Name Role Phone Teodoro Jon DO Primary Care Provider Encounter Details Date Type Department Care Team (Latest Contact Info) Description 11/26/2002 Outpatient Historical HIS [facility] Audie Rosales Jr., MD [address] [place] [phone] Pure hypercholesterolem (Primary Dx) Social History Tobacco Use Types Packs/Day Years Used Date Smoking Tobacco: Never Assessed Sex and Gender Information Value Date Recorded Sex Assigned at Not on file Legal Sex Male 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
--- OUTSIDE RECORDS SUMMARY | 2025-07-09 14:10 | XMS_ITS | Clinical Summary ---
Author Organization [facility] Address [address] [place] [address] Care Team Providers Care Spa Coordinator Name Role Phone Dontrell Teodoro Gay DO Primary Care Provider [phone] Allergies Active Allergy Reactions Criticality Noted Date [...] STL ABSTRACTION Provider, Abstract 06/30/2025 12:45 PM CAFETERIA ATTENDANT Procedure visit [place] [address] [place] [phone] Ana Denis MD VT (ventricular tachycardia) (CMS/HCC) (Primary Dx); Ischemic cardiomyopathy 06/30/2025 12:45 PM CAFETERIA ATTENDANT Office Visit [facility] [address] [place] [phone] Ana Denis MD Persistent atrial fibrillation (CMS/HCC) (Primary Dx); Ischemic cardiomyopathy; VT (ventricular tachycardia) (CMS/HCC); S/P ablation of atrial fibrillation; ICD (implantable cardioverter-defibril lator), dual, in situ [Z95.810] 06/24/2025 External Device Data STL ABSTRACTION Provider, Abstract 06/23/2025 Orders Only [facility] [address] [place] [phone] Ana Denis MD Atrial fibrillation, unspecified type (CMS/HCC) (Primary Dx); VT (ventricular tachycardia) (CMS/HCC); Ischemic cardiomyopathy 06/11/2025 12:29 PM CDT - 06/11/2025 12:56 PM CDT Surgery [facility] Cardiac Probation And Patrol Agent [address] [place] [phone] Ana Denis MD Cardioversion 06/11/2025 9:48 AM CDT - 06/11/2025 2:33 PM CDT Hospital Encounter [facility] [address] [place] [address] Ana Denis MD A-fib (CMS/HCC) Discharge Disposition: Home or Self Care 06/04/2025 Prep for Surgery [place] [address] [place] [phone] Ana Denis MD Persistent atrial fibrillation (CMS/HCC) (Primary Dx) 06/04/2025 Telephone [place] [address] [place] [phone] Joyce Kennedy RN Procedure 06/03/2025 9:15 AM CDT Procedure visit [place] [address] [place] [phone] Ana Denis MD VT (ventricular tachycardia) (CMS/HCC) (Primary Dx); Ischemic cardiomyopathy 06/03/2025 9:15 AM CDT Office Visit [place] [address] [place] [phone] Ana Denis MD Ischemic dilated cardiomyopathy (CMS/HCC) (Primary Dx); S/P ablation of atrial fibrillation; Persistent atrial fibrillation (CMS/HCC); Atrial fibrillation, unspecified type (CMS/HCC) 05/28/2025 Orders Only [place] [address] [place] [phone] Ana Denis MD Benign hypertension (Primary Dx) 05/22/2025 Telephone [place] [address] [place] [phone] Joyce Kennedy RN Procedure 05/22/2025 Telephone [place] [address] [place] [phone] Joyce Kennedy RN Abnormal Cardiovascular Test 05/21/2025 8:00 AM CDT Procedure visit [place] [address] [facility] [address] [place] [phone] VT (ventricular tachycardia) (CMS/HCC) (Primary Dx); Ischemic dilated cardiomyopathy (CMS/HCC); Atrial fibrillation, unspecified type (CMS/HCC); Automatic implantable cardioverter-defibril lator in situ 05/16/2025 1:38 PM CDT - 05/16/2025 11:59 PM CDT Hospital Encounter [facility] [place] [address] [place] [phone] Ana Denis MD Discharge Disposition: Home or Self Care 04/29/2025 External Device Data STL ABSTRACTION Provider, Abstract 04/28/2025 8:00 AM CDT Procedure visit [place] [address] [facility] [address] [place] [phone] Ischemic dilated cardiomyopathy (CMS/HCC) (Primary Dx); VT (ventricular tachycardia) (CMS/HCC); Atrial fibrillation, unspecified type (CMS/HCC); Automatic implantable cardioverter-defibril lator in situ from Last 3 Months Immunizations Immunization Administration Dates Next Due (PNEUMOVAX 23)(50 YRS UP) PN EUMOCOCCAL POLYSACCHARIDE (PPV23) 0.5 ML, IM 05/12/2015,10/30/2002 (SHINGRIX)(50 YRS UP) ZOSTER VACCINE RECOMBINANT, 0.5 ML, IM 09/05/2022 (VAXNEUVANCE)(2-15 MOS)(18 Y RS UP) PNEUMOCOCCAL CONJUGATE (PCV15), POLYSACCHARIDE OLN600 CONJUGATE, ADJUVANT, PED 4 DOSE/ADULT 1 DOSE [...] on file Legal Sex Male 4:49 PM CAFETERIA ATTENDANT Gender Identity Not on file Sexual Orientation Not on file Last Filed Vital Signs Vital Sign Reading Time Taken Comments Blood Pressure 120/62 06/30/2025 12:53 PM CAFETERIA ATTENDANT Pulse 81 06/30/2025 12:53 PM CAFETERIA ATTENDANT Temperature 36.3 C (97.4 F) 06/11/2025 10:00 AM CDT Respiratory Rate 22 06/11/2025 2:00 PM CDT Oxygen Saturation 97% 06/11/2025 2:00 PM CDT Inhaled Oxygen Concentration - - Weight 113.5 kg (250 lb 3.2 oz) 025 12:53 PM CAFETERIA ATTENDANT Height 180.3 cm (5' 11 ) 06/30/2025 12: 53 PM CAFETERIA ATTENDANT Body Mass Index 34.9 06/30/2025 12:53 PM CAFETERIA ATTENDANT Plan of Treatment Upcoming Encounters Date Type Department Care Team (Late st Contact Info) Description 09/08/2025 10:40 AM CAFETERIA ATTENDANT Office Visit [facility] [address] [facility] [address] [place] [phone] Ana Denis MD [address] [facility] [address] [place] [phone] Rayray May ANP [address] [facility] [address] [place] [phone] 10/09/2025 8:00 AM CAFETERIA ATTENDANT Procedure visit [facility] [address] [facility] [address] [place] [phone] Ana Denis MD [address] [facility] [address] [place] [phone] Health Maintenance Due Date Last Done [...] 08/15, 09/25/2015 Medical Devices Implanted Type Area Field Tech Device Identifier Shelf Expiration Date Model / Serial / Lot Defib Icd Melbeta Xt Mri [id number] Df4 Dual Chmbr Surescan [id number] - [id number] Implanted:Qty: 1 on 11/01/2023 by Ana Denis MD at [facility] Defibrillator N/A: Chest [employer]- CARD RHYTHM MGMT [id number] 03/10/2025 [id number] / [id number] 8S / Lead Sprint Quattro 62cm 6947m-62 - Csc - [id number] Implanted:Qty: 1 on 11/01/2023 by Ana Denis MD at [facility] Lead N/A: Chest [employer]- CRM - BULK BUY [id number] 05/18/2024 [id number] / [id number] 5V / Lead Capsurefix Novus Mri 52cm Endocardial Pacing 5076-52 - [id number] Implanted:Qty: 1 on 11/01/2023 by Ana Denis MD at [facility] Lead N/A: Chest [employer]- CRM - BULK BUY [id number] 07/26/2025 5076-52 / [id number] 9V / Procedures Procedure Name Priority Date/Time Associated Diagnosis Comments NM PRGRMG EVAL IMPLANTABLE IN PRSN DUAL LEAD DFB Routine 07/03/2025 7:24 AM CAFETERIA ATTENDANT VT (ventricular tachycardia) (CMS/HCC) Ischemic cardiomyopathy NM ECG ROUTINE ECG W/LEAST 12 LDS W/I&R Routine 06/30/2025 1:27 PM CAFETERIA ATTENDANT Atrial fibrillation, unspecified type (CMS/HCC) VT (ventricular [...] situ NM INTERROGATION EVAL REMOTE </90 D 1/2/METAL WORK DUCT INSTALLER LD DFB Routine 05/21/2025 9:04 PM CDT [...] situ from Last 3 Months Results * NM PRGRMG EVAL IMPLANTABLE IN PRSN DUAL LEAD DFB (07/03/2025 7:24 AM CAFETERIA ATTENDANT) Only the most recent of2 resultswithin the time period is included. Narrative [facility] - 07/03/2025 7:24 AM CAFETERIA ATTENDANT Rachel Mccollum 07/03/2025 7:24 AM Office Device Check By Vendor Science Job Titles Date of Procedure: June 30, 2025 Field Tech: [employer] Comments: Office check by [employer] business office representative in conjunction w/ EP office visit. Interrogation reviewed by provider. Please see scan for details. Procedure Note Rachel Mccollum - 07/03/2025 7:24 AM CST Office Device Check By Vendor Science Job Titles Date of Procedure: June 30, 2025 Field Tech: [employer] Comments: Office check by [employer] business office representative in conjunction w/ EPoffice visit. Interrogation reviewed by provider. Please see scan for details. Ana Denis MD CARDIAC SERVICES ORDERABLES F inal Result [facility] [address] [place] [address] * NM ECG ROUTINE ECG W/LEAST 12 LDS W/I&R (06/30/2025 1:27 PM CAFETERIA ATTENDANT) Only the most recent of3 resultswithin the time period is included. Narrative [facility] - 06/30/2025 1:27 PM CAFETERIA ATTENDANT Ana Denis MD 06/30/2025 1:27 PM In my note Procedure Note Ana Denis MD - 06/30/2025 1:27 PM CST In my note Ana Denis MD ECG ORDERABLES Final Result Performing Organization Address [facility] de Phone Number [facility] [id number] [address] [facility] [address] [place] [phone], [place] [phone] * CARDIOVERSION (06/11/2025 12:52 PM CDT) Narrative [facility] - 06/11/2025 1:02 PM CDT Title of procedure: DCCV Reason for the procedure: Atrial fibrillation/flutter Description of the procedure: After informed consent obtained. Patient sent to the equipment operator/laborer in a post-absorptive state. Conscious sedation was [...] ORDERABLES Final Resul t Performing Organization Address [facility] de Phone Number [facility] [id number] [address] [facility] [address] [place] [address], [place] [phone] * MANUAL DIFFERENTIAL (06/11/2025 10:25 AM CDT) PLATELET EST. Adequate 06/11/2025 11:09 AM CDT [facility] [place] ANISOCYTOSIS 2+ /hpf 06/11/2025 11:09 AM CDT [facility] [place] POIKILOCYTES 2+ /hpf 06/11/2025 11:09 AM CDT [facility] [place] MICROCYTES 2+ /hpf 06/11/2025 11:09 AM CDT [facility] [place] POLYCHROMASIA 1+ /hpf 06/11/2025 11:09 AM CDT [facility] HYPOCHROMIA 2+ /hpf 06/11/2025 11:09 AM T [facility] TARGET CELLS 1+ /hpf 06/11/2025 11:09 AM T [facility] SCHISTOCYTES 1+ /hpf 06/11/2025 11:09 AM T [facility] TEAR DROP CELLS 1+ /hpf 11:09 AM T [facility] Blood Venipuncture / Unknown 06/11/2025 10:25 AM CDT 06/11/2025 10:29 AM CDT us Ana Denis MD HEMATOLOGY ORDERABLES COM Fin al Result [facility] CLIA # [id number] [address] [place] [address] * (ABNORMAL) CBC WITH DIFFERENTIAL (06/11/2025 10:25 AM CDT) WBC 5.8 4.8 - 10.8 K/uL 06/11/2025 11:09 AM T [facility] RBC 4.82 4.60 - 6.20 M/uL 06/11/2025 11:09 AM [facility] HEMOGLOBIN 8.4(L) 14.0 - 18.0 g/dL 06/11/2025 11:09 AM T [facility] HEMATOCRIT 31.1(L) 41.0 - 53.0 % 06/11/2025 11:09 AM T [facility] MCV 64.5(L) 84.0 - 103.0 fL 06/11/2025 11:09 AM T [facility] MCH 17.4(L) 27.0 - 34.0 pg 06/11/2025 11:09 AM [facility] MCHC 27.0(L) 30.0 - 35.0 g/dL 06/11/2025 11:09 AM [facility] [employer] [facility] PLATELETS 288 140 - 440 K/uL 06/11/2025 11:09 AM [facility] [employer] [facility] MPV 9.2 8.9 - 12.8 fL 06/11/2025 11:09 AM [facility] [employer] [facility] RDW 19.9(H) 11.0 - 14.5 % 06/11/2025 11:09 AM [facility] [employer] [facility] RDW-STDEV 44.9 37.0 - 54.0 fL 06/11/2025 11:09 AM [facility] [employer] [facility] NEUTROPHILS 69 42 - 75 % 06/11/2025 11:09 AM [facility] [employer] [facility] LYMPHOCYTES 11(L) 24 - 44 % 06/11/2025 11:09 AM [facility] [employer] [facility] MONOCYTES 14(H) 2 - 10 % 06/11/2025 11:09 AM [facility] [employer] [facility] EOSINOPHILS 4 0 - 7 % 06/11/2025 11:09 AM [facility] [employer] [facility] BASOPHILS 1 0 - 1 % 06/11/2025 11:09 AM [facility] [employer] [facility] IMMATURE GRANULOCYTES 0 0 - 2 % 06/11/2025 11:09 AM [facility] [employer] [facility] NEUTROPHIL ABSOLUTE 3.99 2.00 - 8.00 K/uL 06/11/2025 11:09 AM [facility] [employer] [facility] LYMPHOCYTE ABSOLUTE 0.64(L) 1.20 - 4.00 K/uL 06/11/2025 11:09 AM [facility] [employer] [facility] MONOCYTE ABSOLUTE 0.84(H) 0.10 - 0.60 K/uL 06/11/2025 11:09 AM [facility] [employer] [facility] EOSINOPHIL ABSOLUTE 0.25 0.00 - 0.70 K/uL 06/11/2025 11:09 AM [facility] [employer] [facility] BASOPHILS ABSOLUTE 0.08 0.00 - 0.20 K/uL 06/11/2025 11:09 AM [facility] [employer] [facility] IMMATURE GRANULOCYTES ABSOLUTE 0.02 0.00 - 0.10 K/uL 06/11/2025 11:09 AM CDT [facility] SMEAR REVIEWED: SR - See Smear Review on Manual Diff. 06/11/2025 11:09 AM CDT [facility] Blood Venipuncture / Unknown 06/11/2025 10:25 AM CDT 06/11/2025 10:29 AM CDT us Ana Denis MD HEMATOLOGY ORDERABLES Final R esult Performing Organization Address [facility]/ZIP Co de Phone Number [facility] CLIA # [id number] [address] [facility] [place] [address] * (ABNORMAL) PROTIME-INR (06/11/2025 10:25 AM CDT) PROTIME 20.5(H) 12.7 - 14.9 Seconds 06/11/2025 10:45 AM CDT [facility] INR 1.7(H) 0.8 - 1.2 06/11/2025 10:45 AM CDT [facility] Blood Venipuncture / Unknown 06/11/2025 10:25 AM CDT 06/11/2025 10:29 AM CDT Narrative [facility] - 06/11/2025 10:45 AM CDT Expected Values for INR: DVT/PE Goal INR 2.5; range 2.0 - 3.0 Valve Replacement Tissue Goal INR 2.5; range 2.0 - 3.0 Valve Replacement Mechanical Goal INR 3.0; range 2.5 - 3.5 POST-MO Goal INR 2.5; range 2.0 - 3.0 or Goal INR 3.0; range 2.5 - 3.5 Atrial Fibrillation Goal INR 2.5; range 2.0 - 3.0 Ischemic Stroke Goal INR 2.5; range 2.0 - 3.0 us Ana Denis MD HEMATOLOGY ORDERABLES Final R esult [facility] CLIA # [id number] [address] [place] [address] [place] [address] * (ABNORMAL) BASIC METABOLIC PANEL (06/11/2025 10:25 AM CDT) SODIUM 135(L) 136 - 145 mmol/L 06/11/2025 11:03 AM T [facility] POTASSIUM 3.8 3.5 - 5.1 mmol/L 06/11/2025 11:03 AM T [facility] CHLORIDE 98 98 - 107 mmol/L 06/11/2025 11:03 AM [facility] CO2 26 22 - 29 mmol/L 06/11/2025 11:03 AM [facility] CALCIUM 8.4(L) 8.8 - 10.2 mg/dL 06/11/2025 11:03 AM [facility] BUN 19 8 - 23 mg/dL 06/11/2025 11:03 AM [facility] CREATININE 1.23(H) 0.67 - 1.17 mg/dL 06/11/2025 11:03 AM [facility] GLUCOSE 178(H) 74 - 99 mg/dL 06/11/2025 11:03 AM [facility] GFR >60 >=60 mL/min/1. 73 sq meter 06/11/2025 11:03 AM [facility] Comment:eGFR calculated with 2020 CKD-EPI equation. Vegetarian diet, extremely high or low muscle mass, and may affect results. Cystatin C with Glomerular Filtration Rate is a suitable alternative for these patients. ANION GAP 11 9 - 20 mmol/L 06/11/2025 11:03 AM [facility] Blood Venipuncture / Unknown 06/11/2025 10:25 AM CDT 06/11/2025 10:29 AM CDT us Ana Denis MD CHEMISTRY ORDERABLES Final Re sult [facility] ROBIA # [id number] [address] [facility] [place] [address] * NM INTERROGATION EVAL REMOTE </90 D 1/2/METAL WORK DUCT INSTALLER LD DFB, NM REM INTERROG PM/LDLS PM/IDS [...] Months Insurance MEDICARE PART A AND B [employer] INS SUPP [place] [id number] * Guarantor: DWAYNE WERNER Account Type Relation to Patient Date of Phone Billing Address Personal/Family [address] [place] [address] RX [facility] Medicare Part D Advance Directives For more information, please contact: [phone] * Full Code (Latest Code Status on [...] 2:40 PM 11/01/2023 7:27 PM Care Teams Spa Coordinator Relationship Specialty Start Date End Date Teodoro Jon DO [address] [place] [phone] PCP - General 11/28/20
--- OUTSIDE RECORDS SUMMARY | 2025-07-09 14:10 | XMS_ITS | Encounter Summary ---
Author Organization [employer] [facility] Address [address] [place] [address] Care Team Providers Care Faculty Physician Name Role Phone Teodoro Jon DO Primary Care Provider [phone] Encounter Details Date Type Department Care Team (Latest Contact Info) Description 08/01/2002 Outpatient Historical HIS [facility] Audie Rosales Jr., MD [address] [place] [phone] HYPERTENSION NOS (Primary Dx); OSTEOARTHROS NOS-UNSPEC Social History Tobacco Use Types Packs/Day Years Used Date Smoking Tobacco: Never Assessed Sex and Gender Information Value Date Recorded Sex Assigned at Not on file Legal Sex Male 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
--- OUTSIDE RECORDS SUMMARY | 2025-07-09 14:10 | XMS_ITS | Encounter Summary ---
Author Organization [employer] [facility] Address [address] [place] [address] Care Team Providers Care Trouble Shooting Mechanic Name Role Phone Teodoro Jon DO Primary Care Provider [phone] Encounter Details Date Type Department Care Team (Latest Contact Info) Description 01/04/2002 Outpatient Historical HIS [facility] Audie Rosales Jr., MD [address] [place] [address] HYPERTENSION NOS (Primary Dx); DIABETES UNCOMPL ADULT-TYPE II (CMS/[facility]) Social History Tobacco Use Types Packs/Day Years Used Date Smoking Tobacco: Never Assessed Sex and Gender Information Value Date Recorded Sex Assigned at Not on file Legal Sex Male 5: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
--- OUTSIDE RECORDS SUMMARY | 2025-07-09 14:10 | XMS_ITS | Encounter Summary ---
Author Organization [employer] [facility] Address [address] [place] [address] Care Team Providers Care Fleet Manager Name Role Phone Teodoro Jon DO Primary Care Provider [phone] Encounter Details Date Type Department Care Team (Latest Contact Info) Description 04/03/2002 Outpatient Historical HIS [facility] Audie Rosales Jr., MD [address] [place] [address] OSTEOARTHROS NOS-UNSPEC (Primary Dx); JOINT PAIN-UNSPEC Social History Tobacco Use Types Packs/Day Years Used Date Smoking Tobacco: Never Assessed Sex and Gender Information Value Date Recorded Sex Assigned at Not on file Legal Sex Male 5:09 AM TELEVISION HOST Gender Identity Not on file Sexual Orientation Not on file documented as of this encounter Plan of Treatment Not on file documented as of this encounter Visit Diagnoses Diagnosis Osteoarthrosis, unspecified whether generalized or localized, unspecified site- Primary Pain in joint, site unspecified documented in this encounter Care Teams Fleet Manager Relationship Specialty Start Date End Date Teodoro Jon DO [address] [place] [address] PCP - General Family Practice 03/19/20 documented as of this encounter
--- OUTSIDE RECORDS SUMMARY | 2025-07-09 14:10 | XMS_ITS | Encounter Summary ---
Author Organization [employer] [facility] Address [address] [place] [address] Care Team Providers Care Pearl Digger Name Role Phone Teodoro Jon DO Primary Care Provider [phone] Encounter Details Date Type Department Care Team (Latest Contact Info) Description 11/29/2001 Outpatient Historical HIS [facility] Audie Rosales Jr., MD [address] [place] [phone] ABN BLOOD CHEMISTRY NEC (Primary Dx) Social History Tobacco Use Types Packs/Day Years Used Date Smoking Tobacco: Never Assessed Sex and Gender Information Value Date Recorded Sex Assigned at Not on file Legal Sex Male 5: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
--- OUTSIDE RECORDS SUMMARY | 2025-07-09 14:10 | XMS_ITS | Encounter Summary ---
Author Organization [employer] [facility] Address [address] [place] [address] Care Team Providers Care Color Developer Name Role Phone Teodoro Jon DO Primary Care Provider [phone] Encounter Details Date Type Department Care Team (Latest Contact Info) Description 11/22/2001 Outpatient Historical HIS [facility] Audie Rosalse Jr., MD [address] [place] [phone] HYPERTENSION NOS (Primary Dx); OSTEOARTHROS NOS-UNSPEC; OBESITY NOS Social History Tobacco Use Types Packs/Day Years Used Date Smoking Tobacco: Never Assessed Sex and Gender Information Value Date Recorded Sex Assigned at Not on file Legal Sex Male 5:09 AM PATIENT TRANSPORT ORDERLY Gender Identity Not on file Sexual Orientation Not on file documented as of this encounter Plan of Treatment Not on file documented as of this encounter Visit Diagnoses Diagnosis Unspecified essential hypertension- Primary Osteoarthrosis, unspecified whether generalized or localized, unspecified site Obesity, unspecified documented in this encounter Care Teams Color Developer Relationship Specialty Start Date End Date Teodoro Jon DO [address] [place] [phone] PCP - General Family Practice 03/19/20 documented as of this encounter
--- OUTSIDE RECORDS SUMMARY | 2025-07-09 14:10 | XMS_ITS | Encounter Summary ---
Author Organization [facility] Address [address] [place] [address] Care Team Providers Care Loan Servicing Officer Name Role Phone Teodoro Jon DO Primary Care Provider [phone] Encounter Details Date Type Department Care Team (Late st Contact Info) Description 10/30/2002 Outpatient Historical HIS [facility] Audie Rosales Jr., MD [address] [place] [phone] Social History Tobacco Use Types Packs/Day Years Used Date Smoking Tobacco: Never Assessed Sex and Gender Information Value Date Recorded Sex Assigned at Not on file Legal Sex Male 5:09 AM FORGE TENDER Gender Identity Not on file Sexual Orientation Not on file documented as of this encounter Plan of Treatment Not on file documented as of this encounter Visit Diagnoses Not on filedocumented in this encounter Care Teams Loan Servicing Officer Relationship Specialty Start Date End Date Teodoro Jon DO [address] [place] [phone] PCP - General Family Practice 03/19/20 documented as of this encounter
--- OUTSIDE RECORDS SUMMARY | 2025-07-09 14:10 | XMS_ITS | Encounter Summary ---
Author Organization [facility] Address [address] [place] [address] Care Team Providers Care Network Control Supervisor Name Role Phone Teodoro Jon DO Primary Care Provider [phone] Encounter Details Date Type Department Care Team (Late st Contact Info) Description 08/01/2002 Outpatient Historical [facility] [address] [place] [address] Audie Rosales Jr., MD [address] [place] [address] Social History Tobacco Use Types Packs/Day Years Used Date Smoking Tobacco: Never Assessed Sex and Gender Information Value Date Recorded Sex Assigned at Not on file Legal Sex Male 5: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
--- OUTSIDE RECORDS SUMMARY | 2025-07-09 14:10 | XMS_ITS | Encounter Summary ---
Author Organization [facility] Address [address] 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
--- OUTSIDE RECORDS SUMMARY | 2025-07-09 14:10 | XMS_ITS | Encounter Summary ---
Author Organization [facility] Address [address] 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
--- OUTSIDE RECORDS SUMMARY | 2025-07-09 14:10 | XMS_ITS | Patient Health Record ---
Author Organization [facility] Address [address] [place] [address] Care Team Providers Care Cabin Worker Name Role Phone Audie Rosales Unavailable [phone] Allergies Allergen (clinical drug ingredient) Drug/Non Drug [...] tab(s) by mouth q supper #180 (One [place] and Eighty) tablet(s) 12/23/2013 Active Furosemide 20 [...] Status W/U Status Risk Notes Problem Angina (573153259) Other and unspecified angina pectoris (413.9) Active confirmed Mariano-10 [id number]- Problem Vitamin B-complex deficiency (329521832) Deficiency of B-complex vitamins (266.2) 2013 Active confirmed Mariano-98 [id number]- Problem Lumbosacral spondylosis without myelopathy (32115395) 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 Active confirmed Mariano-98 [id number]- Problem Congestive heart failure (86908957) Congestive heart failure (428.0) 2014 Active confirmed Mariano-98 5911- Problem Coronary artery disease (64304846) CAD (414.01) 2012 Active confirmed Mariano-98 5911- Problem Erectile dysfunc tion secondary to diabetes (607.84) 2018 Active confirmed Mariano-98 5911- Problem Diabetes mellitus type 2 (disorder) (18889703) Type II diabetes (250.00) 2014 Active confirmed Mariano-98 5911- Problem Diabetes mellitus type 2 (disorder) (91385409) Type 2 diabetes (250.00) 2010 Active confirmed Mariano-98 5911- Problem Hyperparathyroidism (64844052) Hyperparathyroidism (252.0) 2003 Problem resolved confirmed Mariano-98 5911- Problem Pityriasis versicolo r (88936824) Pityriasis versicolor (111.0) 2005 Problem resolved confirmed Mariano-98 5911- Problem Obstructive sleep apnea syndrome (32310301) Obstructive sleep apnea (adult) (pediatric) (327.23) 2017 Problem resolved confirmed Mariano-98 5911- Problem Carpal tunnel syndrome (21756291) Carpal tunnel syndrome (354.0) 2016 Problem resolved confirmed Mariano-98 5911- Problem Benign essential hypertension (3088234) Essential hypertension, benign (401.1) 2003 Problem resolved confirmed Mariano-98 5911- Problem Seborrhea (1562516651) Seborrhea (706.3) 2012 Problem resolved confirmed Mariano-98 5911- Problem Stress fracture (149886295) Stress fracture of other bone (733.95) 2003 Problem resolved confirmed Mariano-98 5911- Problem Edema (141668702) Edema (782.3) 2011 Problem resolved confirmed Mariano-98 5911- Problem Headache (67428755) Headache (784.0) 11/12 Problem resolved confirmed Mariano-98 5911- Problem Cough (01544197) Cough (786.2) 2018 Problem resolved confirmed Mariano-98 5911- Problem Chest pain (79991942) Chest pain , unspecified (786.50) 2016 Problem resolved confirmed Mariano-98 5911- Problem Basal cell carcinoma of face (956647608) Basal cell carcinoma of skin of other and unspecified parts of face (173.31) 2016 Problem resolved confirmed Mariano-98 5911- Problem Restless legs (42364093) Restless legs syndrome (RLS) (333.94) 2009 Problem resolved confirmed Mariano-98 5911- Problem Depression (203748137) Depression (311) 2007 Problem resolved confirmed Mariano-98 5911- Problem Dizziness (780453945) Dizziness (780.4) 0 2009 Problem resolved confirmed Mariano-98 5911- Problem Umbilical hernia (941977218) Umbilical hernia (553.1) 2006 Problem resolved confirmed Mariano-98 5911- Problem Orchitis and epididymitis (470874250) Epidymitis, unspecified (604.90) 2014 Problem resolved confirmed Mariano-98 5911- Problem Hypercholesterolemia (63363529) Hypercholesterolemia (272.0) 2009 Problem resolved confirmed Mariano-98 5911- Problem Hypotension (89808112) Hypotension, other (458.8) 2016 Problem resolved confirmed Mariano-98 5911- Problem Swelling of limb (34692543) Lower extremity swelling (729.81) 2014 Problem resolved confirmed Mariano-98 5911- Problem Osteoarthritis of knee (286400874) Osteoarthritis of knee (715.16) 2014 Problem resolved confirmed Mariano-98 5911- Problem Screening for ca ncer - other (V76.49) 2012 Problem resolved confirmed Mariano-98 5911- Problem Shortness of breath (702941834) Shortness of breath (786.09) 2006 Problem resolved confirmed Mariano-98 5911- Problem Onychomycosis caused by dermatophyte (351353409) Toe onychomycosis (110.1) 2017 Problem resolved confirmed Mariano-98 5911- Problem Vaccination agai nst Streptococcus pneumoniae [pneumococcus] (V03.82) 2009 Problem resolved confirmed Mariano-98 5911- Problem Screening for colon cancer (348662170) Screening for colon cancer (V76.49) 2015 Problem resolved confirmed Mariano-98 5911- Problem Angina (885353906) Angina (413.9) 2011 Problem resolved confirmed Mariano-98 5911- Problem Anosmia (04925792) Anosmia (781.1) 2016 Problem resolved confirmed Mariano-98 5911- Problem Contusion of multipl e sites of upper limb (62483594) Multiple contusions of upper limb (923.8) 2015 Problem resolved confirmed Mariano-98 5911- Problem Disorder of hematopoietic system (21042504) Other abnormal findings on blood examination (790.99) 2014 Problem resolved confirmed Mariano-98 5911- Problem Pain in testicle (20777759) Testicular pain (608.89) 2014 Problem resolved confirmed Mariano-98 5911- Problem Chest pain (88325980) Chest pain (786.51) 2011 Problem resolved confirmed Mariano-98 5911- Problem Chronic combined systolic and diastolic heart failure (429567234132238) Combined systolic and diastolic heart failure, chronic (428.42) 2014 Problem resolved confirmed Mariano-98 5911- Problem Earache (303413675) Earache (388.71) 2012 Problem resolved confirmed Mariano-98 5911- Problem Generalized abdomina l pain (845963108) Generalized abdominal pain (789.07) 2005 Problem resolved confirmed Mariano-98 5911- Problem Generalized osteoarthritis (002592439) Generalized osteoarthritis, multiple sites (715.09) 2003 Problem resolved confirmed Mariano-98 5911- Problem Hematochezia (114035877) Hematochezia (578.1) 2005 Problem resolved confirmed Mariano-98 5911- Problem Internal hemorrhoids (88325589) Hemorrhoids, internal (455.0) 2005 Problem resolved confirmed Mariano-98 5911- Problem Psychosexual dysfunction associated with inhibited sexual excitement (998665068132872) Impotence (302.72) 2006 Problem resolved confirmed Mariano-98 5911- Problem Lab: Used to mat ch unlinked laboratory orders (V92) 2014 Problem resolved confirmed Mariano-98 5911- Problem Generalized anxiety disorder (13823049) TESSA (300.02) 2015 Problem resolved confirmed Mariano-98 5911- Problem Hand pain (96327708) Hand pain (729.5) 2017 Problem resolved confirmed Mariano-98 5911- Problem Intermittent claudication secondary to arteriosclerosis (440.21) 2013 Problem resolved confirmed Mariano-98 5911- Problem Foot pain (85956491) Foot pain (729.5) 2004 Problem resolved confirmed Mariano-98 5911- Problem Hypertension (01477676) Hypertension (401.1) 2009 Problem resolved confirmed Mariano-98 5911- Problem Hypotension (72347296) Hypotension (458.8) 2012 Problem resolved confirmed Mariano-98 5911- Problem Pain in limb (67912797) Leg pain (729.5) 2006 Problem resolved confirmed Mariano-98 5911- Problem Precordial pain (15120211) Precordial chest pain (786.51) 2006 Problem resolved confirmed Mariano-98 5911- Problem Screening for malignant neoplasm of colon (715228202) Screening for colorectal cancer (V76.49) 2013 Problem resolved confirmed Mariano-98 5911- Problem General examination of patient (149656480) Annual exam (V70.0) 2008 Problem resolved confirmed Mariano-98 5911- Problem Cardiac arrhythmia (830350542) Bigeminy (427.89) 2012 Problem resolved confirmed Mariano-98 5911- Problem Chronic gastric ulce r without hemorrhage, without perforation AND without obstruction (4190547) Chronic gastric ulcer, without mention of obstruction (531.70) 2012 Problem resolved confirmed Mariano-98 5911- Problem Nose bleeding (784.7) 2005 Problem resolved confirmed Mariano-98 5911- Problem Anxiety state (410598362) Situational stress with anxiety (300.09) 2012 Problem resolved confirmed Mariano-98 5911- Problem Peripheral circulatory disorder associated with type II diabetes mellitus (023002957) Uncontrolled NIDDM with PVD (250.72) 2007 Problem resolved confirmed Mariano-98 5911- Problem Unstable angina (4815204) Unstable angina (411.1) 2013 Problem resolved confirmed Mariano-98 5911- Problem Urinary tract infection (90680495) UTI (595.0) 2009 Problem resolved confirmed Mariano-98 5911- Problem Needs influenza immunization (166647808) Vaccination against other viral diseases, Influenza (V04.81) 2011 Problem resolved confirmed Mariano-98 5911- Problem Weak urinary stream (777114890) Weak urinary stream (788.62) 2017 Problem resolved confirmed Mariano-98 5911- Problem Acute stress reaction with anxiety (308.0) 2014 Problem resolved confirmed Mariano-98 5911- Problem Acute upper respiratory infection (41216392) Acute upper respiratory infection (465.8) 2004 Problem resolved confirmed Mariano-98 5911- Problem Impacted cerumen (33710632) Cerumen impaction (380.4) 2007 Problem resolved confirmed Mariano-98 5911- Problem Chest pain (45406969) Chest pain , other type (786.59) 2016 Problem resolved confirmed Mariano-98 5911- Problem Coronary artery disease (15081445) Coronary artery disease (414.01) 2007 Problem resolved confirmed Mariano-98 5911- Problem Syncope and collapse (604238353) Near-syncope (780.2) 2016 Problem resolved confirmed Mariano-98 5911- Problem Osteoarthritis of shoulder (86726149) Osteoarthritis of shoulder (715.11) 2016 Problem resolved confirmed Mariano-98 5911- Problem Acute otitis media (7916270) Acute otitis media (382.00) 2013 Problem resolved confirmed Mariano-98 5911- Problem Anxiety (91816137) Anxiety (300.02) 04/01 Problem resolved confirmed Mariano-98 5911- Problem Carotid artery stenosis (81000664) Carotid artery stenosis (785.9) 2016 Problem resolved confirmed Mariano-98 5911- Problem Cervical radiculopathy (30918852) Cervical radiculopathy (723.4) 2016 Problem resolved confirmed Mariano-98 5911- Problem Congestive heart failure (73486322) CHF (428.0) 2016 Problem resolved confirmed Mariano-98 5911- Problem Constipation (52410547) Constipation (564.01) 2014 Problem resolved confirmed Mariano-98 5911- Problem Diabetic neuropa thy with moderate loss of protective sensation in feet (250.6) 2008 Problem resolved confirmed Mariano-98 5911- Problem Follow-up exam - other (V67.59) 2016 Problem resolved confirmed Mariano-98 5911- Problem Knee pain (9602056010) Knee pain (719.46) 2013 Problem resolved confirmed Mariano-98 5911- Problem Adjustment disorder with depressed mood (44921728) Bereavement adjustment reaction (309.0) 2017 Problem resolved confirmed Mariano-98 5911- Problem Bradycardia (35523781) Bradycardia (427.89) 2011 Problem resolved confirmed Mariano-98 5911- Problem Erectile dysfunction (023028357) Erectile dysfunction (302.72) 2004 Problem resolved confirmed Mariano-98 5911- Problem Acute gastritis (40281702) Gastritis, acute (535.00) 2016 Problem resolved confirmed Mariano-98 5911- Problem Acute systolic heart failure (936353999) Systolic heart failure, acute (428.21) 2011 Problem resolved confirmed Mariano-98 5911- Problem Abnormal laborat ory test findings without diagnosis (796.4) 2012 Problem resolved confirmed Mariano-98 5911- Problem Acquired trigger finger (6425529) Acquired trigger finger (727.03) 2018 Problem resolved confirmed Mariano-98 5911- Problem Chest discomfort (964447314) Chest discomfort (786.59) 2013 Problem resolved confirmed Mariano-98 5911- Problem Benign hypertensive heart disease with congestive cardiac failure (897654964) CHF due to chronic HTN (402.11) 2011 Problem resolved confirmed Mariano-98 5911- Problem Bilateral inguinal hernia (04978114) Uncomplicated bilateral hernias (550.92) 2006 Problem resolved confirmed Mariano-98 5911- Problem Vitamin D deficiency (09704358) Vitamin D deficiency, unspecified (268.9) 2015 Problem resolved confirmed Mariano-98 5911- Problem Low back pain (700006217) Lower back pain (724.2) 2009 Problem resolved confirmed Mariano-98 5911- Problem Muscle pain (26715300) Muscle aches (729.1) 2015 Problem resolved confirmed Mariano-98 5911- Problem Coronary arteriosclerosis (disorder) (05145378) Coronary artery disease, of [place] coronary artery (414.01) 2010 Problem resolved confirmed Mariano-98 5911- Problem Essential hypertension (83212948) Essential hypertension (401.1) 2004 Problem resolved confirmed Mariano-98 5911- Problem Finger pain (03544631) Finger pain (729.5) 2016 Problem resolved confirmed Mariano-98 5911- Problem Gastroesophageal reflux disease (409447543) GERD (530.81) 2016 Problem resolved confirmed Mariano-98 5911- Problem Hypertension (97212684) HTN (401.1) 2003 Problem resolved confirmed Mariano-98 5911- Problem Type II diabetes mellitus without complication (666490963) NIDDM (250.00) 2007 Problem resolved confirmed Mariano-98 5911- Problem Visual disturbance (03220911) Other specified visual disturbance (368.8) 2016 Problem resolved confirmed Mariano-98 5911- Problem Primary hypercholesterolemia (343104615) Primary hypercholesterolemia (272.0) 2004 Problem resolved confirmed Mariano-98 5911- Problem Localized, primary osteoarthritis of the shoulder region (537079637) Primary localized osteoarthritis, shoulder region (715.11) 2003 Problem resolved confirmed Mariano-98 5911- Problem Tendonitis (71548432) Tendonitis (726.90) 2016 Problem resolved confirmed Mariano-98 5911- Problem Androgen deficiency (78608606) Testosterone deficiency (259.8) 2005 Problem resolved confirmed Mariano-98 5911- Problem Thoracic back pain (114557160) Upper back pain (724.5) 2018 Problem resolved confirmed Mariano-98 5911- Problem Coronary artery disease (08949725) CAD (414.0) 2014 Problem resolved confirmed Mariano-98 5911- Plan Of Treatment No Information Medical (General) History Surgical History Surgery Date(Month/Year) Positive forCholecystectomy: 2005; ; Positive forCataract Removal andCardiac Ablation 9\2012;; PTCA (Coronary Angioplasty): 1983;
--- OUTSIDE RECORDS SUMMARY | 2025-07-09 14:10 | XMS_ITS | Encounter Summary ---
Author Organization [employer] [facility] Address [address] [place] [address] Care Team Providers Care Tail Puller Name Role Phone Teodoro Jon DO Primary Care Provider [phone] Encounter Details Date Type Department Care Team (Latest Contact Info) Description 05/03/2002 Outpatient Historical HIS [facility] Audie Rosales Jr., MD [address] [place] [phone] HYPERTENSION NOS (Primary Dx); OSTEOARTHROS NOS-UNSPEC Social History Tobacco Use Types Packs/Day Years Used Date Smoking Tobacco: Never Assessed Sex and Gender Information Value Date Recorded Sex Assigned at Not on file 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
--- OUTSIDE RECORDS SUMMARY | 2025-07-09 14:10 | XMS_ITS | Encounter Summary ---
Author Organization [employer] [facility] Address [address] [place] [address] Care Team Providers Care Credit Card Analyst Name Role Phone Teodoro Jon DO Primary Care Provider [phone] Encounter Details Date Type Department Care Team (Latest Contact Info) Description 10/30/2002 Outpatient Historical [facility] Audie Rosales Jr., MD [address] [place] [id number] DIABETES UNCOMPL ADULT-TYPE II (CMS/HCC) (Primary Dx); HYPERTENSION NOS; Pure hypercholesterolem; VACCINE FOR STREP PNEUMONIAE Social History Tobacco Use Types Packs/Day Years Used Date Smoking Tobacco: Never Assessed Sex and Gender Information Value Date Recorded Sex Assigned at Not on file 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
--- OUTSIDE RECORDS SUMMARY | 2025-07-09 14:10 | XMS_ITS | Encounter Summary ---
Author Organization [facility] Address [address] 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
--- OUTSIDE RECORDS SUMMARY | 2025-07-09 14:10 | XMS_ITS | Encounter Summary ---
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
--- OUTSIDE RECORDS SUMMARY | 2025-07-09 14:10 | XMS_ITS | Encounter Summary ---
Author Organization [employer] [facility] Address [address] [place] [address] Care Team Providers Care Viscose Cellar Charge Hand Name Role Phone Teodoro Jon DO Primary Care Provider [phone] Encounter Details Date Type Department Care Team (Latest Contact Info) Description 01/29/2003 Outpatient Historical HIS [facility] Audie Rosales Jr., MD [address] [place] [address] LIPOID METABOL DIS NOS (Primary Dx); HYPERTENSION NOS Social History Tobacco Use Types Packs/Day Years Used Date Smoking Tobacco: Never Assessed Sex and Gender Information Value Date Recorded Sex Assigned at Not on file 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
[2025-07-09] MEDS: ATORVASTATIN 20 MG TABLET PO (21:56)
[2025-07-10] VITALS (9 sets, daily range): BP systolic 117–124; BP diastolic 52–62; PULSE 70–87; RESP 15–24; TEMP 36.6–37.1; O2SAT 95–99; BMI 35.3
[2025-07-10 04:59] LABS: Hematocrit 26.4 % (37-53); Hemoglobin 7.30 g/dL (11.27-16.99); Mean Corpuscular HGB Conc 27.7 g/dL (30-55); Mean Corpuscular Hemoglobin 18.1 pg (27-33); Mean Corpuscular Volume 65.3 fl (82-101); Nucleated Red Blood Cells % 0.3 %; Platelet Count 242 10^3/cmm (157-399); Red Blood Count 4.04 10^6/uL (3.85-5.65); White Blood Count 6.11 10^3/uL (3.29-11.43)
[2025-07-10] MEDS: ranolazine (12HR) 500 mg Tablet PO ×2 (05:11→15:57)
[2025-07-10] MEDS: SACUBITRIL/VALSARTAN 49-51 TABLET 1 EACH PO (05:11)
[2025-07-10] MEDS: bumetanide 0.25 mg/mL SDV 4 mL 2 MG IVP ×2 (08:34→21:02)
--- NOTE | 2025-07-10 08:55 | P.PN_ITS ---
Subjective 2 Subjective: Subjectively he is feeling well. Denies new symptoms. Anasarca persistent, he is producing urine. Vitals/I&O/Wt Last Vital Signs Temp 97.8 F 07/10/25 07:33 Pulse 70 07/10/25 07:33 Resp 22 H 07/10/25 07:33 BP 117/59 07/10/25 07:33 Pulse Ox 98 07/10/25 07:33 O2 Del Method Room Air 07/09/25 20:00 07/09/25 07/10/25 07/10/25 22:59 06:59 14:59 Intake Total 480 / 960 480 / 1440 Output Total 700 / 2950 3000 / 5950 Balance -220 / -1989 -2520 / -4510 Weight last 48 hrs Weight 114.8 kg Weight 117.4 kg Weight 122 kg Weight 113.852 kg Physical Exam 2 Const: COMMON NORMALS: patient oriented x3 and alert GENERAL APPEARANCE: c ooperative ORIENTATION/CONSCIOUSNESS: Yes awake HENMT: COMMON NORMALS: oropharynx normal Neck/C-Spine: COMMON NORMALS: no JVD Resp: COMMON NORMALS: normal respiratory effort and clear to auscultation bilaterally AUSCULTATION: clear to auscultation bilaterally Cardio: COMMON NORMALS: no JVD, regular rhythm, S1 normal heart sound present, S2 normal heart sound present and No murmurs present (Cardio) RHYTHM: regular rhythm HEART SOUNDS: S1 normal heart sound present and S2 normal heart sound present GI: COMMON NORMALS: Normal to inspection, nondistended, normoactive bowel sounds present, Soft to palpation and non-tender PALPATION: Yes Soft to palpation Extremity: COMMON NORMALS: no joint enlargement OTHER: Anasarca, including edema up to thighs and lower abdomen Neuro: COMMON NORMALS: patient oriented x3 and moves all extremities S ENSORIUM/ORIENTATION: Yes alert Skin: COMMON NORMALS: no rashes or lesions noted GENERAL SKIN EXAM: no rashes or lesions noted Urinary Catheter Management: Carter: Cath Placed During This Visit: yes Reason for Continuing Indwelling Catheter: Accurate Measurement of Urinary Output in Critically Ill Patients Urinary Catheter Date of Insertion: 07/09/25 Urinary Catheter Time of Insertion: 11:28 Data 07/10/25 04:52 07/09/25 09:21 A&P Assessment and plan 1. Microcytic anemia: 2. Acute on chronic systolic congestive heart failure: 3. Abdominal distention: Plan: # Obcgn-uy-itnjxbv HFrEF Severe exacerbation with anasarca, edema involving thighs, lower abdomen. Reviewed intake and output, and negative almost 5 L. Weight appears to be on a downward trend. Acute systolic and diastolic congestive heart failure with anasarca, continue IV diuresis, increased IV Bumex dose to 2 mg every 12 hours. Monitor intake and output. Reassess chemistry. Monitor for risk of [place] deficiency, DIGNA, hypovolemia. Reassess volume status, chemistry. Reviewed CBC, recheck CMP, magnesium. Limited echocardiogram obtained. EF noted 20%. Compared to prior EF down from 35%. Has had recent cath with revascularization of LAD. Discussed with cardiology. At current time continue medical management. Will benefit from follow-up after discharge in office. # Microcytic anemia / Symptomatic anemia Discussed with him and his this morning hemoglobin today down to 7.3. She denies melanotic or hemorrhagic stools. Reports some intermittent nausea in the morning which improves with food. Patient denies signs of active bleeding Status post 1 unit RBC transfusion, hemoglobin up to 8 on review today. Platelet count reviewed, normal. Repeat blood counts. Discussed iron studies with him and his . Noted iron deficiency anemia on review of TIBC, ferritin. He has had a prior colonoscopy and EGD but it has been a while. Will give iron infusion. Monitor for risk of adverse effect, anaphylaxis. Recheck blood counts. He states has endoscopy scheduled but it has been held off due to the recent stent. Discussed with his in case of persistence and downtrend and unable to maintain hemoglobin, may have to consider endoscopic evaluation. - Will continue clopidogrel, but hold Eliquis # Abdominal distention # Elevated T.Bili - Reviewed abdominal ultrasound, trace ascites suspect elevated T.Bili due to hepatic congestion # Exertional dyspnea # Valvular heart disease Echo (06/17/25) * Moderately increased left ventricular cavity size. Severely decreased left ventricular systolic function. LVEF 35 %. Global left ventricular hypokinesis. Grade II/IV diastolic dysfunction, moderately elevated filling pressures. * Mildly thickened mitral valve. No mitral valve stenosis. Mild mitral valve regurgitation. * Moderate aortic valve calcification. Aortic valve stenosis. * Trace aortic valve regurgitation. * Right atrial pressure is around 5 mm of mercury. CXR without acute cardiopulmonary findings HS Trop 16 -> 16.57 NT-proBNP 2764 # AFIB amiodarone 200 mg BID apixaban 5 mg BID, HOLD # CAD (s/p 3v-CABG) Denies CP. 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 Incidentally noted hepatomegaly with hepatic steatosis, should follow-up with primary provider. PDMP PDMP Reviewed: Not Reviewed Attestations 2 Medical Necessity Statement*: Continue admission for assessment and management of acute systolic and diastolic CHF, acute on chronic anemia, iron deficiency anemia with worsening hemoglobin while needing antiplatelet and anticoagulation. and High MDM includes number and complexity of problems actively addressed during encounter and described risk of complication, morbidity or mortality of management as documented Diagnoses Microcytic anemia D50.9 Acute on chronic systolic congestive heart failure I50.23 Heart failure chronicity: acute on chronic Heart failure type: systolic Abdominal distention R14.0
[2025-07-10] MEDS: iron sucrose 200 MG in sodium chloride 0.9% (100 ml) 100 ML 220 MG IV (09:36)
--- OUTSIDE RECORDS SUMMARY | 2025-07-10 10:53 | XMS_ITS | Encounter Summary ---
Author Organization [facility] Address [address] [place] [address] Care Team Providers Care Veterinary Medicine Doctor Name Role Phone Teodoro Jon DO Primary Care Provider [phone] Reason for Referral * Outpatient Services (Routine) - Closed Specialty Diagnoses / Procedures Referred By Contac t Referred To Contact Diagnoses Abnormal echocardiogram Congestive heart failure, unspecified CAD (coronary artery disease) Procedures MRI CARDIAC INTERPRETATION Scottie Valiente MD [address] [place] [address] Phone: tel: fax: Referral ID Status Reason Start Date Expiration Date Visits Re quested Visits Authorized [id number] Closed 09/24/2013 10/25/2014 1 1 HAT BINDER Encounter Details Date Type Department Care Team (Latest Contact Info) Description 09/24/2013 [facility] [address] [place] [address] Scottie Valiente MD [address] [place] [address] Abnormal echocardiogram (Primary Dx); Congestive [...] on file Legal 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 Exam: MRI CARDIAC INTERPRETATION Date/Time of Exam: Sep 24, 2013 01:22:34 PM Reason For Exam: Nonspecific (abnormal) findings on radiological and other examination of other intrathoracic organs. Examination was performed for evaluation by cardiology. Initial field director images nonspecific. GRISEL/evette 1337 PM - uploaded from [facility] - Procedure Note David Russo MD - 09/24/2013 IMPRESSION - see report below. Exam: MRI CARDIAC INTERPRETATION Date/Time of Exam: Sep 24, 2013 01:22:34 PM Reason For Exam: Nonspecific (abnormal) findings on radiological and other examination of other intrathoracic organs. Examination was performed for evaluation by cardiology. Initial field director images nonspecific. GRISEL/evette 1337 PM - uploaded from [employer] - us Scottie Cecily Valiente MD MR ORDERABLES Final Result INTERFACE SYSTEM Refer to clinic/hospital department documented in this encounter Visit Diagnoses Diagnosis Abnormal echocardiogram- Primary Nonspecific (abnormal) findings on radiological and other examination of other intrathoracic organs Congestive heart failure, unspecified CAD (coronary artery disease) Coronary atherosclerosis of unspecified type of vessel, [place] or graft Abnormal echocardiogram Nonspecific (abnormal) findings on radiological and other examination of other intrathoracic organs Congestive heart failure, unspecified CAD (coronary artery disease) Coronary atherosclerosis of unspecified type of vessel, [place] or graft documented in this encounter Care Teams Veterinary Medicine Doctor Relationship Specialty Start Date End Date Teodoro Jon DO [address] [place] [phone] PCP - General Family Practice 03/19/20 documented as of this encounter
--- OUTSIDE RECORDS SUMMARY | 2025-07-10 10:53 | XMS_ITS | Encounter Summary ---
Author Organization [facility] Address [address] [place] [address] Care Team Providers Care Pullman Car Repairer Name Role Phone Teodoro Jon DO Primary Care Provider [phone] Reason for Referral * Outpatient Services (Routine) - Closed Specialty Diagnoses / Procedures Referred By Contac t Referred To Contact Diagnoses PVC's (premature ventricular contractions) Procedures CL STUDY POSS ABLATION Ana Denis MD [address] [place] [address] Phone: tel: fax: Referral ID Status Reason Start Date Expiration Date Visits Re quested Visits Authorized [id number] Closed 04/08/2013 05/09/2014 1 1 Encounter Details Date Type Department Care Team (Late st Contact Info) Description 04/08/2013 Ancillary Orders [facility]- [place] [address] [place] [address] Ana Denis MD [address] [place] [address] PVC's (premature ventricular contractions) (Primary Dx) [...] on file 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 PRE-PROCEDURE DIAGNOSES: 1. Symptomatic refractory premature ventricular contractions. 2. Hypertension. 3. Cul-ndtmedk-gisbnftoh diabetes. 4. Hyperlipidemia. 5. Myocardial infarction and history of bypass surgery. POST-PROCEDURE DIAGNOSES: 1. Symptomatic refractory premature ventricular contractions. 2. Hypertension. 3. Xiq-fwfjysl-jcbpygszs diabetes. 4. Hyperlipidemia. 5. Myocardial infarction and history of bypass surgery. 6. Status post PVC ablation, PVC at left inferior septal area LV. MATERIALS USED: 1. 5-, 6-, 5-Niuean sheath to the left femoral veins for [...] electrically record His bundle, RV, and HRA. 7-Niuean sheath to the right femoral artery, later [...] before ablation as following: QTC is 432, TX 206, HR is 105, AH is 122, HV is 60, cycle length 725 milliseconds. Atrial decremental pacing post ablation 1:1 until 400 milliseconds, and there is no VA conduction post ablation with ventricular pacing which was done. AV jennifer ERP reached at 600/340 post ablation, and then 1 mcg/min of isoproterenol was infused at steady state. We repeated EP study, baseline as following: TX is 185, QRS is 130, QT is [...] femoral vein changed to the short sheath 8-Niuean. FINAL SUMMARY: 1. Mildly prolonged HV. 2. PVC originally from the LV inferior septal area which was ablated. Post ablation, no more PVC seen. No other significant arrhythmia can be identified. SCL/jaw - transcribed in Epic - Procedure Note Ana Denis MD - 05/03/2013 TYPE OF PROCEDURE: PVC ablation. PRE-PROCEDURE DIAGNOSES: 1. Symptomatic refractory premature ventricular contractions. 2. Hypertension. 3. Grw-xtyrbrs-agmuvfayb diabetes. 4. Hyperlipidemia. 5. Myocardial infarction and history of bypass surgery. POST-PROCEDURE DIAGNOSES: 1. Symptomatic refractory premature ventricular contractions. 2. Hypertension. 3. Xlm-iiiqbpm-klwazrjzg diabetes. 4. Hyperlipidemia. 5. Myocardial infarction and history of bypass surgery. 6. Status post PVC ablation, PVC at left inferior septal area LV. MATERIALS USED: 1. 5-, 6-, 5-Niuean sheath to the left femoral veins for [...] can electrically record His bundle, RV,and HRA. 7-Niuean sheath to the right femoral artery, later [...] Baseline beforeablation as following: QTC is 432, TX 206, HR is 105, AH is 122, HV is60, cycle length 725 milliseconds. Atrial decremental pacing postablation 1:1 until 400 milliseconds, and there is no VA conduction postablation with ventricular pacing which was done. AV jennifer ERP reached at600/340 post ablation, and then 1 mcg/min of isoproterenol was infused atsteady state. We repeated EP study, baseline as following: TX is 185,QRS is 130, QT is 415, [...] right femoral vein changed to the short sheath8-Niuean. FINAL SUMMARY: 1. Mildly prolonged HV. 2. PVC originally from the LV inferior septal area which was ablated.Post ablation, no more PVC seen. No other significant arrhythmia can beidentified. SCL/jaw - transcribed in [employer] - us Ana Denis MD FLUOROSCOPY ORDERABLES Final Result [facility] documented in this encounter Visit Diagnoses Diagnosis PVC's (premature ventricular contractions)- Primary Other premature beats Frequent PVCs- Primary Other premature beats PVC's (premature ventricular contractions) Other premature beats documented in this encounter Care Teams Pullman Car Repairer Relationship Specialty Start Date End Date Teodoro Jon DO [address] [place] [phone] PCP - General Family Practice 03/19/20 documented as of this encounter
--- OUTSIDE RECORDS SUMMARY | 2025-07-10 10:53 | XMS_ITS | Clinical Summary ---
Author Organization [facility] Address [address] 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 Gender Identity Not on file Sexual Orientation [...] 36.2 C (97.2 F) 09/03/2020 8:35 AM NURSE DISCHARGE PLANNER Respiratory Rate 16 09/03/2020 8:59 AM NURSE DISCHARGE PLANNER Oxygen Saturation 93% 09/03/2020 8:59 AM NURSE DISCHARGE PLANNER Inhaled Oxygen Concentration - - Weight 118.4 [...] Advance Directives For more information, please contact: [phone] * Full Code (Latest Code Status on [...] 4:41 PM 05/02/2013 12:04 PM Care Teams Wire Rope Fabrication Supervisor Relationship Specialty Start Date End Date Teodoro Jon DO [facility] [place] [phone] PCP - General Family Practice 03/19/20
--- OUTSIDE RECORDS SUMMARY | 2025-07-10 10:53 | XMS_ITS | Encounter Summary ---
Author Organization [employer] [facility] Address [address] [place] [address] Care Team Providers Care Salon/Spa Manager Name Role Phone Teodoro Jon DO Primary Care Provider [phone] Encounter Details Date Type Department Care Team (Latest Contact Info) Description 11/26/2002 Outpatient Historical HIS [facility] Audie Rosales Jr., MD [address] [place] [phone] Pure hypercholesterolem (Primary Dx) Social History Tobacco Use Types Packs/Day Years Used Date Smoking Tobacco: Never Assessed Sex and Gender Information Value Date Recorded Sex Assigned at Not on file 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
--- OUTSIDE RECORDS SUMMARY | 2025-07-10 10:53 | XMS_ITS | Encounter Summary ---
Author Organization [employer] [facility] Address [address] [place] [address] Care Team Providers Care Tool And Cutter Grinder Name Role Phone Teodoro Jon DO Primary Care Provider [phone] Encounter Details Date Type Department Care Team (Latest Contact Info) Description 06/04/2003 Outpatient Historical HIS [facility] Audie Rosales Jr., MD [address] [place] [address] ENDOCRINE/NERV TAMMIE NOS (Primary Dx); HYPOVOLEMIA Social History Tobacco Use Types Packs/Day Years Used Date Smoking Tobacco: Never Assessed Sex and Gender Information Value Date Recorded Sex Assigned at Not on file 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
--- OUTSIDE RECORDS SUMMARY | 2025-07-10 10:53 | XMS_ITS | Encounter Summary ---
Author Organization [employer] [facility] Address [address] [place] [address] Care Team Providers Care Ms Sql Server Developer Name Role Phone Teodoro Jon DO Primary Care Provider [phone] Encounter Details Date Type Department Care Team (Latest Contact Info) Description 04/30/2003 Outpatient Historical HIS [facility] Audie Rosales Jr., MD [address] [place] [address] HYPERTENSION NOS (Primary Dx); Pure hypercholesterolem; CRAMP IN LIMB Social History Tobacco Use Types Packs/Day Years Used Date Smoking Tobacco: Never Assessed Sex and Gender Information Value Date Recorded Sex Assigned at Not on file 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
--- OUTSIDE RECORDS SUMMARY | 2025-07-10 10:53 | XMS_ITS | Encounter Summary ---
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
--- OUTSIDE RECORDS SUMMARY | 2025-07-10 10:53 | XMS_ITS | Encounter Summary ---
Author Organization [facility] Address [address] [place] [address] Care Team Providers Care Humidifier Attendant Name Role Phone Teodoro Jon DO Primary Care Provider [phone] Encounter Details Date Type Department Care Team (Latest Contact Info) Description 01/29/2003 Outpatient Historical HIS [facility] Audie Rosales Jr., MD [address] [place] [address] LIPOID METABOL DIS NOS (Primary Dx); HYPERTENSION NOS Social History Tobacco Use Types Packs/Day Years Used Date Smoking Tobacco: Never Assessed Sex and Gender Information Value Date Recorded Sex Assigned at Not on file Legal Sex Male 5:09 AM INCIDENT COMMANDER Gender Identity Not on file Sexual Orientation Not on file documented as of this encounter Plan of Treatment Not on file documented as of this encounter Visit Diagnoses Diagnosis Unspecified disorder of lipoid metabolism- Primary Unspecified essential hypertension documented in this encounter Care Teams Humidifier Attendant Relationship Specialty Start Date End Date Teodoro Jon DO [address] [place] [phone] PCP - General Family Practice 03/19/20 documented as of this encounter
--- OUTSIDE RECORDS SUMMARY | 2025-07-10 10:54 | XMS_ITS | Encounter Summary ---
Author Organization [facility] Address [address] [place] [address] Care Team Providers Care Chief Compliance Officer Name Role Phone Teodoro Jon DO Primary Care Provider [phone] Encounter Details Date Type Department Care Team (Latest Contact Info) Description 10/30/2002 Outpatient Historical [facility] Audie Rosales Jr., MD [address] [place] [phone] DIABETES UNCOMPL ADULT-TYPE II (CMS/HCC) (Primary Dx); HYPERTENSION NOS; Pure hypercholesterolem; VACCINE FOR STREP PNEUMONIAE Social History Tobacco Use Types Packs/Day Years Used Date Smoking Tobacco: Never Assessed Sex and Gender Information Value Date Recorded Sex Assigned at Not on file Legal 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
--- OUTSIDE RECORDS SUMMARY | 2025-07-10 10:54 | XMS_ITS | Encounter Summary ---
Author Organization [facility] Address [address] 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
--- OUTSIDE RECORDS SUMMARY | 2025-07-10 10:54 | XMS_ITS | Patient Health Record ---
Author Organization [facility] Address [address] [place] [address] Care Team Providers Care Cable Tender Name Role Phone Audie Rosales Unavailable [phone] Allergies Allergen (clinical drug ingredient) Drug/Non Drug [...] tab(s) by mouth q supper #180 (One [place] and Eighty) tablet(s) 12/23/2013 Active Furosemide 20 [...] Status W/U Status Risk Notes Problem Angina (980607015) Other and unspecified angina pectoris (413.9) Active confirmed Mariano-10 [id number]- Problem Vitamin B-complex deficiency (773320876) Deficiency of B-complex vitamins (266.2) 2013 Active confirmed Mariano-98 [id number]- Problem Lumbosacral spondylosis without myelopathy (55606339) 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 Active confirmed Mariano-98 5911- Problem Congestive heart failure (14258018) Congestive heart failure (428.0) 2014 Active confirmed Mariano-98 5911- Problem Coronary artery disease (75132374) CAD (414.01) 2012 Active confirmed Mariano-98 5911- Problem Erectile dysfunc tion secondary to diabetes (607.84) 2018 Active confirmed Mariano-98 5911- Problem Diabetes mellitus type 2 (disorder) (71882076) Type II diabetes (250.00) 2014 Active confirmed [facility]iano-98 5911- Problem Diabetes mellitus type 2 (disorder) (48033341) Type 2 diabetes (250.00) 2010 Active confirmed Mariano-98 5911- Problem Hyperparathyroidism (86761923) Hyperparathyroidism (252.0) 2003 Problem resolved confirmed Mariano-98 5911- Problem Pityriasis versicolo r (01417634) Pityriasis versicolor (111.0) 2005 Problem resolved confirmed [facility]iano-98 5911- Problem Obstructive sleep apnea syndrome (34705144) Obstructive sleep apnea (adult) (pediatric) (327.23) 2017 Problem resolved confirmed [facility]iano-98 5911- Problem Carpal tunnel syndrome (97099301) Carpal tunnel syndrome (354.0) 2016 Problem resolved confirmed Mariano-98 5911- Problem Benign essential hypertension (7021130) Essential hypertension, benign (401.1) 2003 Problem resolved confirmed [facility]iano-98 5911- Problem Seborrhea (4476314805) Seborrhea (706.3) 2012 Problem resolved confirmed [facility]iano-98 5911- Problem Stress fracture (740277850) Stress fracture of other bone (733.95) 2003 Problem resolved confirmed [facility]iano-98 5911- Problem Edema (453688860) Edema (782.3) 2011 Problem resolved confirmed [facility]iano-98 5911- Problem Headache (03823872) Headache (784.0) 11/12 Problem resolved confirmed [facility]iano-98 5911- Problem Cough (20927948) Cough (786.2) 2018 Problem resolved confirmed Mariano-98 5911- Problem Chest pain (26750122) Chest pain , unspecified (786.50) 2016 Problem resolved confirmed [facility]iano-98 5911- Problem Basal cell carcinoma of face (173266072) Basal cell carcinoma of skin of other and unspecified parts of face (173.31) 2016 Problem resolved confirmed Mariano-98 5911- Problem Restless legs (51505841) Restless legs syndrome (RLS) (333.94) 2009 Problem resolved confirmed [facility]iano-98 5911- Problem Depression (240244569) Depression (311) 2007 Problem resolved confirmed [facility]iano-98 5911- Problem Dizziness (895750729) Dizziness (780.4) 0 2009 Problem resolved confirmed [facility]iano-98 5911- Problem Umbilical hernia (403535344) Umbilical hernia (553.1) 2006 Problem resolved confirmed Mariano-98 5911- Problem Orchitis and epididymitis (008439800) Epidymitis, unspecified (604.90) 2014 Problem resolved confirmed [facility]iano-98 5911- Problem Hypercholesterolemia (89028729) Hypercholesterolemia (272.0) 2009 Problem resolved confirmed [facility]iano-98 5911- Problem Hypotension (45305866) Hypotension, other (458.8) 2016 Problem resolved confirmed [facility]iano-98 5911- Problem Swelling of limb (31341582) Lower extremity swelling (729.81) 2014 Problem resolved confirmed Mariano-98 5911- Problem Osteoarthritis of knee (197385893) Osteoarthritis of knee (715.16) 2014 Problem resolved confirmed Mariano-98 5911- Problem Screening for ca ncer - other (V76.49) 2012 Problem resolved confirmed [facility]iano-98 5911- Problem Shortness of breath (175273479) Shortness of breath (786.09) 2006 Problem resolved confirmed Mariano-98 5911- Problem Onychomycosis caused by dermatophyte (098118250) Toe onychomycosis (110.1) 2017 Problem resolved confirmed Mariano-98 5911- Problem Vaccination agai nst Streptococcus pneumoniae [pneumococcus] (V03.82) 2009 Problem resolved confirmed Mariano-98 5911- Problem Screening for colon cancer (570244720) Screening for colon cancer (V76.49) 2015 Problem resolved confirmed Mariano-98 5911- Problem Angina (119766099) Angina (413.9) 2011 Problem resolved confirmed Mariano-98 5911- Problem Anosmia (95804482) Anosmia (781.1) 2016 Problem resolved confirmed Mariano-98 5911- Problem Contusion of multipl e sites of upper limb (30888941) Multiple contusions of upper limb (923.8) 2015 Problem resolved confirmed Mariano-98 5911- Problem Disorder of hematopoietic system (21231019) Other abnormal findings on blood examination (790.99) 2014 Problem resolved confirmed Mariano-98 5911- Problem Pain in testicle (29416568) Testicular pain (608.89) 2014 Problem resolved confirmed Mariano-98 5911- Problem Chest pain (80394698) Chest pain (786.51) 2011 Problem resolved confirmed Mariano-98 5911- Problem Chronic combined systolic and diastolic heart failure (310716943203523) Combined systolic and diastolic heart failure, chronic (428.42) 2014 Problem resolved confirmed Mariano-98 5911- Problem Earache (091657351) Earache (388.71) 2012 Problem resolved confirmed Mariano-98 5911- Problem Generalized abdomina l pain (861358586) Generalized abdominal pain (789.07) 2005 Problem resolved confirmed Mariano-98 5911- Problem Generalized osteoarthritis (846104647) Generalized osteoarthritis, multiple sites (715.09) 2003 Problem resolved confirmed Mariano-98 5911- Problem Hematochezia (183595952) Hematochezia (578.1) 2005 Problem resolved confirmed Mariano-98 5911- Problem Internal hemorrhoids (47403277) Hemorrhoids, internal (455.0) 2005 Problem resolved confirmed Mariano-98 5911- Problem Psychosexual dysfunction associated with inhibited sexual excitement (938320229885748) Impotence (302.72) 2006 Problem resolved confirmed Mariano-98 5911- Problem Lab: Used to mat ch unlinked laboratory orders (V92) 2014 Problem resolved confirmed Mariano-98 5911- Problem Generalized anxiety disorder (97015844) TESSA (300.02) 2015 Problem resolved confirmed Mariano-98 5911- Problem Hand pain (40129034) Hand pain (729.5) 2017 Problem resolved confirmed Mariano-98 5911- Problem Intermittent claudication secondary to arteriosclerosis (440.21) 2013 Problem resolved confirmed Mariano-98 5911- Problem Foot pain (21397995) Foot pain (729.5) 2004 Problem resolved confirmed Mariano-98 5911- Problem Hypertension (00299807) Hypertension (401.1) 2009 Problem resolved confirmed Mariano-98 5911- Problem Hypotension (25422422) Hypotension (458.8) 2012 Problem resolved confirmed Mariano-98 5911- Problem Pain in limb (46401161) Leg pain (729.5) 2006 Problem resolved confirmed Mariano-98 5911- Problem Precordial pain (22911833) Precordial chest pain (786.51) 2006 Problem resolved confirmed Mariano-98 5911- Problem Screening for malignant neoplasm of colon (288345395) Screening for colorectal cancer (V76.49) 2013 Problem resolved confirmed Mariano-98 5911- Problem General examination of patient (624318009) Annual exam (V70.0) 2008 Problem resolved confirmed Mariano-98 5911- Problem Cardiac arrhythmia (865466300) Bigeminy (427.89) 2012 Problem resolved confirmed Mariano-98 5911- Problem Chronic gastric ulce r without hemorrhage, without perforation AND without obstruction (0154793) Chronic gastric ulcer, without mention of obstruction (531.70) 2012 Problem resolved confirmed Mariano-98 5911- Problem Nose bleeding (784.7) 2005 Problem resolved confirmed Mariano-98 5911- Problem Anxiety state (778144033) Situational stress with anxiety (300.09) 2012 Problem resolved confirmed Mariano-98 5911- Problem Peripheral circulatory disorder associated with type II diabetes mellitus (831793383) Uncontrolled NIDDM with PVD (250.72) 2007 Problem resolved confirmed Mariano-98 5911- Problem Unstable angina (2712649) Unstable angina (411.1) 2013 Problem resolved confirmed Mariano-98 5911- Problem Urinary tract infection (07905245) UTI (595.0) 2009 Problem resolved confirmed Mariano-98 5911- Problem Needs influenza immunization (135832392) Vaccination against other viral diseases, Influenza (V04.81) 2011 Problem resolved confirmed Mariano-98 5911- Problem Weak urinary stream (405497461) Weak urinary stream (788.62) 2017 Problem resolved confirmed Mariano-98 5911- Problem Acute stress reaction with anxiety (308.0) 2014 Problem resolved confirmed Mariano-98 5911- Problem Acute upper respiratory infection (52671974) Acute upper respiratory infection (465.8) 2004 Problem resolved confirmed Mariano-98 5911- Problem Impacted cerumen (82553735) Cerumen impaction (380.4) 2007 Problem resolved confirmed Mariano-98 5911- Problem Chest pain (10581568) Chest pain , other type (786.59) 2016 Problem resolved confirmed Mariano-98 5911- Problem Coronary artery disease (42303955) Coronary artery disease (414.01) 2007 Problem resolved confirmed Mariano-98 5911- Problem Syncope and collapse (282412933) Near-syncope (780.2) 2016 Problem resolved confirmed Mariano-98 5911- Problem Osteoarthritis of shoulder (87282367) Osteoarthritis of shoulder (715.11) 2016 Problem resolved confirmed Mariano-98 5911- Problem Acute otitis media (8277953) Acute otitis media (382.00) 2013 Problem resolved confirmed Mariano-98 5911- Problem Anxiety (40446371) Anxiety (300.02) 04/01 Problem resolved confirmed Mariano-98 5911- Problem Carotid artery stenosis (26213626) Carotid artery stenosis (785.9) 2016 Problem resolved confirmed Mariano-98 5911- Problem Cervical radiculopathy (40304000) Cervical radiculopathy (723.4) 2016 Problem resolved confirmed Mariano-98 5911- Problem Congestive heart failure (56933769) CHF (428.0) 2016 Problem resolved confirmed Mariano-98 5911- Problem Constipation (65958110) Constipation (564.01) 2014 Problem resolved confirmed Mariano-98 5911- Problem Diabetic neuropa thy with moderate loss of protective sensation in feet (250.6) 2008 Problem resolved confirmed Mariano-98 5911- Problem Follow-up exam - other (V67.59) 2016 Problem resolved confirmed Mariano-98 5911- Problem Knee pain (1543905793) Knee pain (719.46) 2013 Problem resolved confirmed Mariano-98 5911- Problem Adjustment disorder with depressed mood (89055811) Bereavement adjustment reaction (309.0) 2017 Problem resolved confirmed Mariano-98 5911- Problem Bradycardia (60351032) Bradycardia (427.89) 2011 Problem resolved confirmed Mariano-98 5911- Problem Erectile dysfunction (404583794) Erectile dysfunction (302.72) 2004 Problem resolved confirmed Mariano-98 5911- Problem Acute gastritis (38612901) Gastritis, acute (535.00) 2016 Problem resolved confirmed Mariano-98 5911- Problem Acute systolic heart failure (085969947) Systolic heart failure, acute (428.21) 2011 Problem resolved confirmed Mariano-98 5911- Problem Abnormal laborat ory test findings without diagnosis (796.4) 2012 Problem resolved confirmed Mariano-98 5911- Problem Acquired trigger finger (2531899) Acquired trigger finger (727.03) 2018 Problem resolved confirmed Mariano-98 5911- Problem Chest discomfort (464503958) Chest discomfort (786.59) 2013 Problem resolved confirmed Mariano-98 5911- Problem Benign hypertensive heart disease with congestive cardiac failure (247374886) CHF due to chronic HTN (402.11) 2011 Problem resolved confirmed Mariano-98 5911- Problem Bilateral inguinal hernia (47688249) Uncomplicated bilateral hernias (550.92) 2006 Problem resolved confirmed Mariano-98 5911- Problem Vitamin D deficiency (85837239) Vitamin D deficiency, unspecified (268.9) 2015 Problem resolved confirmed Mariano-98 5911- Problem Low back pain (147164282) Lower back pain (724.2) 2009 Problem resolved confirmed Mariano-98 5911- Problem Muscle pain (86367769) Muscle aches (729.1) 2015 Problem resolved confirmed Mariano-98 5911- Problem Coronary arteriosclerosis (disorder) (01353514) Coronary artery disease, of [place] coronary artery (414.01) 2010 Problem resolved confirmed Mariano-98 5911- Problem Essential hypertension (16202795) Essential hypertension (401.1) 2004 Problem resolved confirmed Mariano-98 5911- Problem Finger pain (28345433) Finger pain (729.5) 2016 Problem resolved confirmed Mariano-98 5911- Problem Gastroesophageal reflux disease (349870157) GERD (530.81) 2016 Problem resolved confirmed Mariano-98 5911- Problem Hypertension (49333204) HTN (401.1) 2003 Problem resolved confirmed Mariano-98 5911- Problem Type II diabetes mellitus without complication (298748028) NIDDM (250.00) 2007 Problem resolved confirmed Mariano-98 5911- Problem Visual disturbance (07731236) Other specified visual disturbance (368.8) 2016 Problem resolved confirmed Mariano-98 5911- Problem Primary hypercholesterolemia (311692417) Primary hypercholesterolemia (272.0) 2004 Problem resolved confirmed Mariano-98 5911- Problem Localized, primary osteoarthritis of the shoulder region (981419576) Primary localized osteoarthritis, shoulder region (715.11) 2003 Problem resolved confirmed Mariano-98 5911- Problem Tendonitis (15600986) Tendonitis (726.90) 2016 Problem resolved confirmed Mariano-98 5911- Problem Androgen deficiency (14092803) Testosterone deficiency (259.8) 2005 Problem resolved confirmed Mariano-98 5911- Problem Thoracic back pain (722061259) Upper back pain (724.5) 2018 Problem resolved confirmed Mariano-98 5911- Problem Coronary artery disease (77632071) CAD (414.0) 2014 Problem resolved confirmed Mariano-98 5911- Plan Of Treatment No Information Medical (General) History Surgical History Surgery Date(Month/Year) Positive forCholecystectomy: 2005; ; Positive forCataract Removal andCardiac Ablation 9\2012;; PTCA (Coronary Angioplasty): 1983;
--- OUTSIDE RECORDS SUMMARY | 2025-07-10 10:54 | XMS_ITS | Encounter Summary ---
Author Organization [employer] [facility] Address [address] [place] [address] Care Team Providers Care Dinkey Locomotive Engineer Name Role Phone Teodoro Jon DO Primary Care Provider [phone] Encounter Details Date Type Department Care Team (Latest Contact Info) Description 11/29/2001 Outpatient Historical HIS [facility] Audie Rosales Jr., MD [address] [place] [phone] ABN BLOOD CHEMISTRY NEC (Primary Dx) Social History Tobacco Use Types Packs/Day Years Used Date Smoking Tobacco: Never Assessed Sex and Gender Information Value Date Recorded Sex Assigned at Not on file 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
--- OUTSIDE RECORDS SUMMARY | 2025-07-10 10:54 | XMS_ITS | Encounter Summary ---
Author Organization [employer] [facility] Address [address] [place] [address] Care Team Providers Care Optical Effects Line Up Person Name Role Phone Teodoro Jon DO Primary Care Provider Encounter Details Date Type Department Care Team (Latest Contact Info) Description 11/22/2001 Outpatient Historical HIS [facility] Audie Rosales Jr., MD [address] [place] [phone] HYPERTENSION NOS (Primary Dx); OSTEOARTHROS NOS-UNSPEC; OBESITY NOS Social History Tobacco Use Types Packs/Day Years Used Date Smoking Tobacco: Never Assessed Sex and Gender Information Value Date Recorded Sex Assigned at Not on file 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
--- OUTSIDE RECORDS SUMMARY | 2025-07-10 10:54 | XMS_ITS | Encounter Summary ---
Author Organization [facility] Address [address] 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
--- OUTSIDE RECORDS SUMMARY | 2025-07-10 10:54 | XMS_ITS | Clinical Summary ---
Author Organization [facility] Address [address] [place] [address] Care Team Providers Care Director Biostatistics Name Role Phone Dontrell Teodoro Gay DO Primary Care Provider [phone] Allergies Active Allergy Reactions Criticality Noted Date [...] STL ABSTRACTION Provider, Abstract 06/30/2025 12:45 PM BUSINESS PRACTICES SUPERVISOR Procedure visit [place] [address] [place] [phone] Ana Denis MD VT (ventricular tachycardia) (CMS/HCC) (Primary Dx); Ischemic cardiomyopathy 06/30/2025 12:45 PM BUSINESS PRACTICES SUPERVISOR Office Visit [facility] [address] [place] [phone] Ana Denis MD Persistent atrial fibrillation (CMS/HCC) (Primary Dx); Ischemic cardiomyopathy; VT (ventricular tachycardia) (CMS/HCC); S/P ablation of atrial fibrillation; ICD (implantable cardioverter-defibril lator), dual, in situ [Z95.810] 06/24/2025 External Device Data STL ABSTRACTION Provider, Abstract 06/23/2025 Orders Only [facility] [address] [place] [phone] Ana Denis MD Atrial fibrillation, unspecified type (CMS/HCC) (Primary Dx); VT (ventricular tachycardia) (CMS/HCC); Ischemic cardiomyopathy 06/11/2025 12:29 PM CDT - 06/11/2025 12:56 PM CDT Surgery [facility] Cardiac Medical Claims Analyst [address] [place] [phone] Ana Denis MD Cardioversion 06/11/2025 9:48 AM CDT - 06/11/2025 2:33 PM CDT Hospital Encounter [facility] [address] [place] [address] Ana Denis MD A-fib (CMS/HCC) Discharge Disposition: Home or Self Care 06/04/2025 Prep for Surgery [place] [address] [place] [phone] Ana Denis MD Persistent atrial fibrillation (CMS/HCC) (Primary Dx) 06/04/2025 Telephone [place] [address] [place] [phone] Joyce Kennedy RN Procedure 06/03/2025 9:15 AM CDT Procedure visit [place] [address] [place] [phone] Ana Denis MD VT (ventricular tachycardia) (CMS/HCC) (Primary Dx); Ischemic cardiomyopathy 06/03/2025 9:15 AM CDT Office Visit [place] [address] [place] [phone] Ana Denis MD Ischemic dilated cardiomyopathy (CMS/HCC) (Primary Dx); S/P ablation of atrial fibrillation; Persistent atrial fibrillation (CMS/HCC); Atrial fibrillation, unspecified type (CMS/HCC) 05/28/2025 Orders Only [place] [address] [place] [phone] Ana Denis MD Benign hypertension (Primary Dx) 05/22/2025 Telephone [place] [address] [place] [phone] Joyce Kennedy RN Procedure 05/22/2025 Telephone [place] [address] [place] [phone] Joyce Kennedy RN Abnormal Cardiovascular Test 05/21/2025 8:00 AM CDT Procedure visit [place] [address] [facility] [address] [place] [phone] VT (ventricular tachycardia) (CMS/HCC) (Primary Dx); Ischemic dilated cardiomyopathy (CMS/HCC); Atrial fibrillation, unspecified type (CMS/HCC); Automatic implantable cardioverter-defibril lator in situ 05/16/2025 1:38 PM CDT - 05/16/2025 11:59 PM CDT Hospital Encounter [facility] Respiratory Therapy Services [place] [address] [place] [phone] Ana Denis MD Discharge Disposition: Home or Self Care 04/29/2025 External Device Data STL ABSTRACTION Provider, Abstract 04/28/2025 8:00 AM CDT Procedure visit [place] [address] [facility] [address] [place] [phone] Ischemic dilated cardiomyopathy (CMS/HCC) (Primary Dx); VT (ventricular tachycardia) (CMS/HCC); Atrial fibrillation, unspecified type (CMS/HCC); Automatic implantable cardioverter-defibril lator in situ from Last 3 Months Immunizations Immunization Administration Dates Next Due (PNEUMOVAX 23)(50 YRS UP) PN EUMOCOCCAL POLYSACCHARIDE (PPV23) 0.5 ML, IM 05/12/2015,10/30/2002 (SHINGRIX)(50 YRS UP) ZOSTER VACCINE RECOMBINANT, 0.5 ML, IM 09/05/2022 (VAXNEUVANCE)(2-15 MOS)(18 Y RS UP) PNEUMOCOCCAL CONJUGATE (PCV15), POLYSACCHARIDE [id number] CONJUGATE, ADJUVANT, PED 4 DOSE/ADULT 1 DOSE [...] on file Legal Sex Male 4:49 PM BUSINESS PRACTICES SUPERVISOR Gender Identity Not on file Sexual Orientation Not on file Last Filed Vital Signs Vital Sign Reading Time Taken Comments Blood Pressure 120/62 06/30/2025 12:53 PM BUSINESS PRACTICES SUPERVISOR Pulse 81 06/30/2025 12:53 PM BUSINESS PRACTICES SUPERVISOR Temperature 36.3 C (97.4 F) 06/11/2025 10:00 AM CDT Respiratory Rate 22 06/11/2025 2:00 PM CDT Oxygen Saturation 97% 06/11/2025 2:00 PM CDT Inhaled Oxygen Concentration - - Weight 113.5 kg (250 lb 3.2 oz) 025 12:53 PM BUSINESS PRACTICES SUPERVISOR Height 180.3 cm (5' 11 ) 06/30/2025 12: 53 PM BUSINESS PRACTICES SUPERVISOR Body Mass Index 34.9 06/30/2025 12:53 PM BUSINESS PRACTICES SUPERVISOR Plan of Treatment Upcoming Encounters Date Type Department Care Team (Late st Contact Info) Description 09/08/2025 10:40 AM BUSINESS PRACTICES SUPERVISOR Office Visit [facility] [address] [facility] [address] [place] [phone] Ana Denis MD [address] [facility] [address] [place] [phone] Rayray May ANP [address] [facility] [address] [place] [phone] 10/09/2025 8:00 AM BUSINESS PRACTICES SUPERVISOR Procedure visit [facility] [address] [facility] [address] [place] [phone] Ana Denis MD [address] [facility] [address] [place] [phone] Health Maintenance Due Date Last Done [...] 08/15, 09/25/2015 Medical Devices Implanted Type Area Home Paraprofessional Device Identifier Shelf Expiration Date Model / Serial / Lot Defib Icd Fred Xt Mri [id number] Dual Chmbr Surescan [id number] - [id number] Implanted:Qty: 1 on 11/01/2023 by Ana Denis MD at [facility] Defibrillator N/A: Chest [employer]- CARD RHYTHM MGMT [id number] 03/10/2025 [id number] / [id number] 8S / Lead Sprint Quattro 62cm 6947m-62 - Csc - [id number] Implanted:Qty: 1 on 11/01/2023 by Ana Denis MD at [facility] Lead N/A: Chest [employer]- CRM - BULK BUY [id number] 05/18/2024 [id number] / [id number] 5V / Lead Capsurefix Novus Mri 52cm Endocardial Pacing 5076-52 - [id number] Implanted:Qty: 1 on 11/01/2023 by Ana Denis MD at [facility] Lead N/A: Chest [employer]- CRM - BULK BUY [id number] 07/26/2025 5076-52 / [id number] 9V / Procedures Procedure Name Priority Date/Time Associated Diagnosis Comments NE PRGRMG EVAL IMPLANTABLE IN PRSN DUAL LEAD DFB Routine 07/03/2025 7:24 AM BUSINESS PRACTICES SUPERVISOR VT (ventricular tachycardia) (CMS/HCC) Ischemic cardiomyopathy NE ECG ROUTINE ECG W/LEAST 12 LDS W/I&R Routine 06/30/2025 1:27 PM BUSINESS PRACTICES SUPERVISOR Atrial fibrillation, unspecified type (CMS/HCC) VT (ventricular tachycardia) (CMS/HCC) Ischemic cardiomyopathy CARDIOVERSION Routine 06/11/2025 12:52 PM CDT A-fib (CMS/HCC) DIFFERENTIAL, MANUAL Routine 06/11/2025 10:25 AM CDT BASIC METABOLIC PANEL Routine 06/11/2025 10:25 AM CDT PROTIME-INR Routine 06/11/2025 10:25 AM CDT CBC WITH DIFFERENTIAL Routine 06/11/2025 10:25 AM CDT EKG 12-LEAD Routine 06/11/2025 10:21 AM CDT NE PRGRMG EVAL IMPLANTABLE IN PRSN DUAL LEAD DFB Routine 06/04/2025 2:10 PM CDT VT (ventricular tachycardia) (CMS/HCC) Ischemic cardiomyopathy NE ECG ROUTINE ECG W/LEAST 12 LDS W/I&R Routine 06/03/2025 9:52 AM CDT Benign hypertension NE REM INTERROG PM/LDLS PM/IDS <90 D TECH REVIEW Routine 05/21/2025 9:04 PM CDT VT (ventricular tachycardia) (CMS/HCC) Ischemic dilated cardiomyopathy (CMS/HCC) Atrial fibrillation, unspecified type (CMS/HCC) Automatic implantable cardioverter-defibril lator in situ NE INTERROGATION EVAL REMOTE </90 D 1/2/BUFFING WHEEL OPERATOR LD DFB Routine 05/21/2025 9:04 PM CDT VT (ventricular tachycardia) (CMS/HCC) Ischemic dilated cardiomyopathy (CMS/HCC) Atrial fibrillation, unspecified type (CMS/HCC) Automatic implantable cardioverter-defibril lator in situ NE INTERROG EVAL, REMOTE, UP TO 90 DAYS, PACER/DEFIB WITHIN GLOBAL Routine 04/28/2025 2:12 PM CDT Ischemic dilated cardiomyopathy (CMS/HCC) VT (ventricular tachycardia) (CMS/HCC) Atrial fibrillation, unspecified type (CMS/HCC) Automatic implantable cardioverter-defibril lator in situ NE INTERROG EVAL, REMOTE, UP TO 90 DAYS,CARDVERT/DEFIB WITHIN GLOBAL Routine 04/28/2025 2:12 PM CDT Ischemic dilated cardiomyopathy (CMS/HCC) VT (ventricular tachycardia) (CMS/HCC) Atrial fibrillation, unspecified type (CMS/HCC) Automatic implantable cardioverter-defibril lator in situ from Last 3 Months Results * NE PRGRMG EVAL IMPLANTABLE IN PRSN DUAL LEAD DFB (07/03/2025 7:24 AM BUSINESS PRACTICES SUPERVISOR) Only the most recent of2 resultswithin the time period is included. Narrative [facility] - 07/03/2025 7:24 AM BUSINESS PRACTICES SUPERVISOR Rachel Mccollum 07/03/2025 7:24 AM Office Device Check By Vendor Recycling Technician Date of Procedure: June 30, 2025 Home Paraprofessional: Med[employer] Comments: Office check by [employer] field representatives director in conjunction w/ EP office visit. Interrogation reviewed by provider. Please see scan for details. Procedure Note Rachel Mccollum - 07/03/2025 7:24 AM CST Office Device Check By Vendor Recycling Technician Date of Procedure: June 30, 2025 Home Paraprofessional: [employer] Comments: Office check by [employer] field representatives director in conjunction w/ EPoffice visit. Interrogation reviewed by provider. Please see scan for details. Ana Denis MD CARDIAC SERVICES ORDERABLES F inal Result [facility] [address] [facility] [place] [address] * NE ECG ROUTINE ECG W/LEAST 12 LDS W/I&R (06/30/2025 1:27 PM BUSINESS PRACTICES SUPERVISOR) Only the most recent of3 resultswithin the time period is included. Narrative [facility] - 06/30/2025 1:27 PM BUSINESS PRACTICES SUPERVISOR Ana Denis MD 06/30/2025 1:27 PM In my note Procedure Note Ana Denis MD - 06/30/2025 1:27 PM CST In my note Ana Denis MD ECG ORDERABLES Final Result Performing Organization Address [place]/RUST de Phone Number [facility] [id number] [address] [facility] [address] [place] [phone], [place] [phone] * CARDIOVERSION (06/11/2025 12:52 PM CDT) Narrative [facility] - 06/11/2025 1:02 PM CDT Title of procedure: DCCV Reason for the procedure: Atrial fibrillation/flutter Description of the procedure: After informed consent obtained. Patient sent to the senior label specialist in a post-absorptive state. Conscious sedation was [...] ORDERABLES Final Resul t Performing Organization Address [facility] de Phone Number [facility] [phone] [address] [facility] [address] [place] [phone], [place] [phone] * MANUAL DIFFERENTIAL (06/11/2025 10:25 AM CDT) PLATELET EST. Adequate 06/11/2025 11:09 AM CDT [facility] [place] ANISOCYTOSIS 2+ /hpf 06/11/2025 11:09 AM CDT [facility] [place] POIKILOCYTES 2+ /hpf 06/11/2025 11:09 AM CDT [facility] [place] MICROCYTES 2+ /hpf 06/11/2025 11:09 AM CDT [facility] [place] [facility] POLYCHROMASIA 1+ /hpf 06/11/2025 11:09 AM CDT [facility] HYPOCHROMIA 2+ /hpf 06/11/2025 11:09 AM T [facility] TARGET CELLS 1+ /hpf 06/11/2025 11:09 AM T [facility] SCHISTOCYTES 1+ /hpf 06/11/2025 11:09 AM T [facility] TEAR DROP CELLS 1+ /hpf 11:09 AM T [facility] Blood Venipuncture / Unknown 06/11/2025 10:25 AM CDT 06/11/2025 10:29 AM CDT us Ana Denis MD HEMATOLOGY ORDERABLES COM Fin al Result [facility] CLIA # [id number] [address] [place] [address] * (ABNORMAL) CBC WITH DIFFERENTIAL (06/11/2025 10:25 AM CDT) WBC 5.8 4.8 - 10.8 K/uL 06/11/2025 11:09 AM T [facility] RBC 4.82 4.60 - 6.20 M/uL 06/11/2025 11:09 AM [facility] HEMOGLOBIN 8.4(L) 14.0 - 18.0 g/dL 06/11/2025 11:09 AM T [facility] HEMATOCRIT 31.1(L) 41.0 - 53.0 % 06/11/2025 11:09 AM T [facility] MCV 64.5(L) 84.0 - 103.0 fL 06/11/2025 11:09 AM T [facility] MCH 17.4(L) 27.0 - 34.0 pg 06/11/2025 11:09 AM [facility] MCHC 27.0(L) 30.0 - 35.0 g/dL 06/11/2025 11:09 AM [email or web address] PLATELETS 288 140 - 440 K/uL 06/11/2025 11:09 AM [email or web address] MPV 9.2 8.9 - 12.8 fL 06/11/2025 11:09 AM [email or web address] RDW 19.9(H) 11.0 - 14.5 % 06/11/2025 11:09 AM [email or web address] RDW-STDEV 44.9 37.0 - 54.0 fL 06/11/2025 11:09 AM [email or web address] NEUTROPHILS 69 42 - 75 % 06/11/2025 11:09 AM [email or web address] LYMPHOCYTES 11(L) 24 - 44 % 06/11/2025 11:09 AM [email or web address] MONOCYTES 14(H) 2 - 10 % 06/11/2025 11:09 AM [email or web address] EOSINOPHILS 4 0 - 7 % 06/11/2025 11:09 AM [email or web address] BASOPHILS 1 0 - 1 % 06/11/2025 11:09 AM [email or web address] IMMATURE GRANULOCYTES 0 0 - 2 % 06/11/2025 11:09 AM [email or web address] NEUTROPHIL ABSOLUTE 3.99 2.00 - 8.00 K/uL 06/11/2025 11:09 AM [email or web address] LYMPHOCYTE ABSOLUTE 0.64(L) 1.20 - 4.00 K/uL 06/11/2025 11:09 AM [email or web address] MONOCYTE ABSOLUTE 0.84(H) 0.10 - 0.60 K/uL 06/11/2025 11:09 AM [email or web address] EOSINOPHIL ABSOLUTE 0.25 0.00 - 0.70 K/uL 06/11/2025 11:09 AM [email or web address] BASOPHILS ABSOLUTE 0.08 0.00 - 0.20 K/uL 06/11/2025 11:09 AM [email or web address] IMMATURE GRANULOCYTES ABSOLUTE 0.02 0.00 - 0.10 K/uL 06/11/2025 11:09 AM CDT [facility] SMEAR REVIEWED: SR - See Smear Review on Manual Diff. 06/11/2025 11:09 AM CDT [facility] Blood Venipuncture / Unknown 06/11/2025 10:25 AM CDT 06/11/2025 10:29 AM CDT us Ana Denis MD HEMATOLOGY ORDERABLES Final R esult Performing Organization Address [place]/ZIP Co de Phone Number [facility] CLIA # [id number] [address] [facility] [place] [address] * (ABNORMAL) PROTIME-INR (06/11/2025 10:25 AM CDT) PROTIME 20.5(H) 12.7 - 14.9 Seconds 06/11/2025 10:45 AM CDT [facility] INR 1.7(H) 0.8 - 1.2 06/11/2025 10:45 AM CDT [facility] Blood Venipuncture / Unknown 06/11/2025 10:25 AM CDT 06/11/2025 10:29 AM CDT Narrative [facility] - 06/11/2025 10:45 AM CDT Expected Values for INR: DVT/PE Goal INR 2.5; range 2.0 - 3.0 Valve Replacement Tissue Goal INR 2.5; range 2.0 - 3.0 Valve Replacement Mechanical Goal INR 3.0; range 2.5 - 3.5 POST-HI Goal INR 2.5; range 2.0 - 3.0 or Goal INR 3.0; range 2.5 - 3.5 Atrial Fibrillation Goal INR 2.5; range 2.0 - 3.0 Ischemic Stroke Goal INR 2.5; range 2.0 - 3.0 us Ana Denis MD HEMATOLOGY ORDERABLES Final R esult [facility] CLIA # [id number] [address] [place] [address] [place] [address] * (ABNORMAL) BASIC METABOLIC PANEL (06/11/2025 10:25 AM CDT) SODIUM 135(L) 136 - 145 mmol/L 06/11/2025 11:03 AM T [facility] POTASSIUM 3.8 3.5 - 5.1 mmol/L 06/11/2025 11:03 AM T [facility] CHLORIDE 98 98 - 107 mmol/L 06/11/2025 11:03 AM [facility] CO2 26 22 - 29 mmol/L 06/11/2025 11:03 AM [facility] CALCIUM 8.4(L) 8.8 - 10.2 mg/dL 06/11/2025 11:03 AM [facility] BUN 19 8 - 23 mg/dL 06/11/2025 11:03 AM [facility] CREATININE 1.23(H) 0.67 - 1.17 mg/dL 06/11/2025 11:03 AM [facility] GLUCOSE 178(H) 74 - 99 mg/dL 06/11/2025 11:03 AM [facility] GFR >60 >=60 mL/min/1. 73 sq meter 06/11/2025 11:03 AM [facility] Comment:eGFR calculated with 2020 CKD-EPI equation. Vegetarian diet, extremely high or low muscle mass, and may affect results. Cystatin C with Glomerular Filtration Rate is a suitable alternative for these patients. ANION GAP 11 9 - 20 mmol/L 06/11/2025 11:03 AM [facility] Blood Venipuncture / Unknown 06/11/2025 10:25 AM CDT 06/11/2025 10:29 AM CDT us Ana Denis MD CHEMISTRY ORDERABLES Final Re sult [facility] ROBIA # [id number] [address] [facility] [place] [address] * NE INTERROGATION EVAL REMOTE </90 D 1/2/BUFFING WHEEL OPERATOR LD DFB, NE REM INTERROG PM/LDLS PM/IDS <90 D TECHREVIEW [...] Months Insurance MEDICARE PART A AND B [employer] INS SUPP [place] [id number] * Guarantor: DWAYNE WERNER Account Type Relation to Patient Date of Phone Billing Address Personal/Family [address] [place] [address] RX [facility] Medicare Part D Advance Directives For more information, please contact: [phone] * Full Code (Latest Code Status on [...] 2:40 PM 11/01/2023 7:27 PM Care Teams Director Biostatistics Relationship Specialty Start Date End Date Teodoro Jon DO [address] [place] [phone] PCP - General 11/28/20
--- OUTSIDE RECORDS SUMMARY | 2025-07-10 10:54 | XMS_ITS | Encounter Summary ---
Author Organization [employer] [facility] of [employer] [facility] Address [address] [place] [address] Care Team Providers Care Museum Attendant Name Role Phone Teodoro Jon DO Primary Care Provider [phone] Encounter Details Date Type Department Care Team (Latest Contact Info) Description 05/03/2002 Outpatient Historical HIS [facility] Audie Rosales Jr., MD [address] [place] [phone] HYPERTENSION NOS (Primary Dx); OSTEOARTHROS NOS-UNSPEC Social History Tobacco Use Types Packs/Day Years Used Date Smoking Tobacco: Never Assessed Sex and Gender Information Value Date Recorded Sex Assigned at Not on file Legal Sex Male 5:[address]ER Gender Identity Not on file Sexual Orientation Not on file documented as of this encounter Plan of Treatment Not on file documented as of this encounter Visit Diagnoses Diagnosis Unspecified essential hypertension- Primary Osteoarthrosis, unspecified whether generalized or localized, unspecified site documented in this encounter Care Teams Museum Attendant Relationship Specialty Start Date End Date Teodoro Jon DO [address] [place] [address] PCP - General Family Practice 03/19/20 documented as of this encounter
--- OUTSIDE RECORDS SUMMARY | 2025-07-10 10:54 | XMS_ITS | Encounter Summary ---
Author Organization [employer] [facility] Address [address] [place] [address] Care Team Providers Care Voip Technician Name Role Phone Teodoro Jon DO Primary Care Provider [phone] Encounter Details Date Type Department Care Team (Latest Contact Info) Description 04/03/2002 Outpatient Historical HIS [facility] Audie Rosales Jr., MD [address] [place] [address] OSTEOARTHROS NOS-UNSPEC (Primary Dx); JOINT PAIN-UNSPEC Social History Tobacco Use Types Packs/Day Years Used Date Smoking Tobacco: Never Assessed Sex and Gender Information Value Date Recorded Sex Assigned at Not on file Legal Sex Male 5:09 AM YARN CARRIER Gender Identity Not on file Sexual Orientation Not on file documented as of this encounter Plan of Treatment Not on file documented as of this encounter Visit Diagnoses Diagnosis Osteoarthrosis, unspecified whether generalized or localized, unspecified site- Primary Pain in joint, site unspecified documented in this encounter Care Teams Voip Technician Relationship Specialty Start Date End Date Teodoro Jon DO [address] [place] [address] PCP - General Family Practice 03/19/20 documented as of this encounter
--- OUTSIDE RECORDS SUMMARY | 2025-07-10 10:54 | XMS_ITS | Encounter Summary ---
Author Organization [employer] [facility] Address [address] [place] [address] Care Team Providers Care Stitchdown Toe Former Name Role Phone Teodoro Jon DO Primary Care Provider [phone] Encounter Details Date Type Department Care Team (Latest Contact Info) Description 01/04/2002 Outpatient Historical HIS [facility] Audie Rosales Jr., MD [address] [place] [address] HYPERTENSION NOS (Primary Dx); DIABETES UNCOMPL ADULT-TYPE II (CMS/[facility]) Social History Tobacco Use Types Packs/Day Years Used Date Smoking Tobacco: Never Assessed Sex and Gender Information Value Date Recorded Sex Assigned at Not on file Legal Sex Male 5:09 AM THREAT ANALYST Gender Identity Not on file Sexual Orientation Not on file documented as of this encounter Plan of Treatment Not on file documented as of this encounter Visit Diagnoses Diagnosis Unspecified essential hypertension- Primary Type II or unspecified type diabetes mellitus without mention of complication, not stated as uncontrolled documented in this encounter Care Teams Stitchdown Toe Former Relationship Specialty Start Date End Date Teodoro Jon DO [address] [place] [phone] PCP - General Family Practice 03/19/20 documented as of this encounter
--- OUTSIDE RECORDS SUMMARY | 2025-07-10 10:54 | XMS_ITS | Encounter Summary ---
Author Organization [facility] Address [address] [place] [address] Care Team Providers Care Food Dehydrator Operator Name Role Phone Teodoro Jon DO Primary Care Provider [phone] Encounter Details Date Type Department Care Team (Late st Contact Info) Description 10/30/2002 Outpatient Historical HIS [facility] Audie Rosales Jr., MD [address] [place] [phone] Social History Tobacco Use Types Packs/Day Years Used Date Smoking Tobacco: Never Assessed Sex and Gender Information Value Date Recorded Sex Assigned at Not on file Legal Sex Male 5:09 AM PATROL CONDUCTOR Gender Identity Not on file Sexual Orientation Not on file documented as of this encounter Plan of Treatment Not on file documented as of this encounter Visit Diagnoses Not on filedocumented in this encounter Care Teams Food Dehydrator Operator Relationship Specialty Start Date End Date Teodoro Jon DO [address] [place] [phone] PCP - General Family Practice 03/19/20 documented as of this encounter
--- OUTSIDE RECORDS SUMMARY | 2025-07-10 10:54 | XMS_ITS | Encounter Summary ---
Author Organization [employer] [facility] Address [address] [place] [address] Care Team Providers Care Cattle Broker Name Role Phone Teodoro Jon DO Primary Care Provider [phone] Encounter Details Date Type Department Care Team (Latest Contact Info) Description 08/01/2002 Outpatient Historical [facility] Audie Rosales Jr., MD [address] [place] [id number] HYPERTENSION NOS (Primary Dx); OSTEOARTHROS NOS-UNSPEC Social History Tobacco Use Types Packs/Day Years Used Date Smoking Tobacco: Never Assessed Sex and Gender Information Value Date Recorded Sex Assigned at Not on file Legal Sex Male 5:09 AM MACHINE MOVER Gender Identity Not on file Sexual Orientation Not on file documented as of this encounter Plan of Treatment Not on file documented as of this encounter Visit Diagnoses Diagnosis Unspecified essential hypertension- Primary Osteoarthrosis, unspecified whether generalized or localized, unspecified site documented in this encounter Care Teams Cattle Broker Relationship Specialty Start Date End Date Teodoro Jon DO [address] [place] [address] PCP - General Family Practice 03/19/20 documented as of this encounter
--- OUTSIDE RECORDS SUMMARY | 2025-07-10 10:54 | XMS_ITS | Encounter Summary ---
Author Organization [facility] Address [address] [facility] [address] [facility] [address] [place]: [place] [address] Care Team Providers Care Clinical Pharmacy Technician Name Role Phone Teodoro Jon DO Primary Care Provider [phone] Encounter Details Date Type Department Care Team (Late st Contact Info) Description 06/21/1992 Inpatient Historical Wolf Swanson MD NO ADDRESS ON FILE Social History Tobacco Use Types Packs/Day Years Used Date Smoking Tobacco: Never Assessed Sex and Gender Information Value Date Recorded Sex Assigned at Not on file Legal Sex Male 5:09 AM DISTRIBUTION COLLECTION OPERATOR Gender Identity Not on file Sexual Orientation Not on file documented as of this encounter Plan of Treatment Not on file documented as of this encounter Visit Diagnoses Not on filedocumented in this encounter Care Teams Clinical Pharmacy Technician Relationship Specialty Start Date End Date Teodoro Jon DO [address] [place] [address] PCP - General Family Practice 03/19/20 documented as of this encounter
--- OUTSIDE RECORDS SUMMARY | 2025-07-10 10:54 | XMS_ITS | Encounter Summary ---
Author Organization [facility] Address [address] [place] [address] Care Team Providers Care Corporate Receptionist Name Role Phone Teodoro Jon DO Primary Care Provider [phone] Encounter Details Date Type Department Care Team (Late st Contact Info) Description 08/01/2002 Outpatient Historical [facility] [address] [place] [address] Audie Rosales Jr., MD [address] [place] [phone] Social History Tobacco Use Types Packs/Day Years Used Date Smoking Tobacco: Never Assessed Sex and Gender Information Value Date Recorded Sex Assigned at Not on file Legal Sex Male 5:09 AM DENTIST Gender Identity Not on file Sexual Orientation Not on file documented as of this encounter Plan of Treatment Not on file documented as of this encounter Visit Diagnoses Not on filedocumented in this encounter Care Teams Corporate Receptionist Relationship Specialty Start Date End Date Teodoro Jon DO [address] [place] [phone] PCP - General Family Practice 03/19/20 documented as of this encounter
[2025-07-10 11:45] LABS: Glucose Urine UA 3+ (Normal); Nitrate Urine Negative (Negative); Specific Gravity, Urine 1.011 (1.005-1.030)
[2025-07-10 11:50] LABS: Add Urine Microscopic? YES
[2025-07-10 12:24] LABS: UA Slide Review UA Slide Review Perf
[2025-07-10] MEDS: HYDROcodone-acetaminophen 5-325 mg Tablet 1 TAB PO ×2 (13:40→21:02)
[2025-07-10] MEDS: cefTRIAXone 1,000 mg SDV 1000 MG IVP (13:40)
[2025-07-10] MEDS: metoprolol succinate ER (24 HR) 25 mg Tablet PO (13:41)
[2025-07-10] MEDS: ATORVASTATIN 20 MG TABLET PO (21:02)
[2025-07-11] VITALS (12 sets, daily range): BP systolic 95–137; BP diastolic 55–68; PULSE 64–77; RESP 14–27; TEMP 36.4–37.1; O2SAT 90–100; BMI 34.6
[2025-07-11 04:00] LABS: Hematocrit 26.0 % (37-53); Hemoglobin 7.10 g/dL (11.27-16.99); Mean Corpuscular HGB Conc 27.3 g/dL (30-55); Mean Corpuscular Hemoglobin 17.8 pg (27-33); Mean Corpuscular Volume 65.0 fl (82-101); Nucleated Red Blood Cells % 0.3 %; Platelet Count 211 10^3/cmm (157-399); Red Blood Count 4.00 10^6/uL (3.85-5.65); White Blood Count 9.16 10^3/uL (3.29-11.43)
[2025-07-11 04:21] LABS: Alanine Aminotransferase 11 U/L (0-41); Albumin Level 3.6 g/dL (3.5-5.2); Alkaline Phosphatase 128 U/L (40-130); Anion Gap 13.5 (5-19); Aspartate Amino Transferase 17 U/L (0-40); Blood Urea Nitrogen 15 mg/dL (8-23); Calcium 7.9 mg/dL (8.5-10.5); Carbon Dioxide 29 mmol/L (22-29); Chloride 97 mmol/L (98-107); Globulin 2.3 g/dL (1.3-4.6); Glucose 115 mg/dL (65-115); Osmolality Calculated 284 mOsm/kg (285-295); Potassium 3.5 mmol/L (3.5-5.1); Sodium 136 mmol/L (136-145); Total Protein 5.9 g/dL (6.6-8.7)
[2025-07-11 04:26] LABS: Magnesium 2.1 mg/dL (1.7-2.3)
[2025-07-11] MEDS: metoprolol succinate ER (24 HR) 25 mg Tablet PO (05:48)
[2025-07-11] MEDS: ranolazine (12HR) 500 mg Tablet PO ×2 (05:48→16:07)
[2025-07-11] MEDS: SACUBITRIL/VALSARTAN 49-51 TABLET 1 EACH PO (05:48)
[2025-07-11] MEDS: HYDROcodone-acetaminophen 5-325 mg Tablet 1 TAB PO ×3 (07:29→18:49)
[2025-07-11] MEDS: bumetanide 0.25 mg/mL SDV 4 mL 2 MG IVP ×2 (07:30→20:15)
[2025-07-11] MEDS: iron sucrose 200 MG in sodium chloride 0.9% (100 ml) 100 ML 220 MG IV (09:28)
--- NOTE | 2025-07-11 10:45 | P.PN_ITS ---
Subjective 2 Subjective: Is feeling all right all things considering, although somewhat tired. Hemoglobin was this morning at 7.1. No hematochezia or melena. Vitals/I&O/Wt Last Vital Signs Temp 97.6 F 07/11/25 08:24 Pulse 77 07/11/25 09:37 Resp 14 07/11/25 09:37 BP 114/57 07/11/25 09:37 Pulse Ox 91 07/11/25 09:37 O2 Del Method Nasal Cannula 07/11/25 07:07 O2 Flow Rate 1.5 07/11/25 07:07 07/10/25 07/11/25 07/11/25 22:59 06:59 14:59 Intake Total 720 / 1310 480 / 1790 580 / 580 Output Total 1750 / 3075 1550 / 4625 Balance -1030 / -1765 -1070 / -2835 580 / 580 Weight last 48 hrs Weight 112.5 kg Weight 114.8 kg Physical Exam 2 Narrative: Accompanied by his Const: COMMON NORMALS: patient oriented x3 and alert GENERAL APPEARANCE: c ooperative ORIENTATION/CONSCIOUSNESS: Yes awake HENMT: COMMON NORMALS: oropharynx normal Neck/C-Spine: COMMON NORMALS: no JVD Resp: COMMON NORMALS: normal respiratory effort and clear to auscultation bilaterally AUSCULTATION: clear to auscultation bilaterally Cardio: COMMON NORMALS: no JVD, regular rhythm, S1 normal heart sound present, S2 normal heart sound present and No murmurs present (Cardio) RHYTHM: regular rhythm HEART SOUNDS: S1 normal heart sound present and S2 normal heart sound present GI: COMMON NORMALS: Normal to inspection, nondistended, normoactive bowel sounds present, Soft to palpation and non-tender PALPATION: Yes Soft to palpation Extremity: COMMON NORMALS: no joint enlargement OTHER: Anasarca, including edema up to thighs and lower abdomen Neuro: COMMON NORMALS: patient oriented x3 and moves all extremities S ENSORIUM/ORIENTATION: Yes alert Skin: COMMON NORMALS: no rashes or lesions noted GENERAL SKIN EXAM: no rashes or lesions noted Urinary Catheter Management: Carter: Cath Placed During This Visit: yes Reason for Continuing Indwelling Catheter: Accurate Measurement of Urinary Output in Critically Ill Patients Urinary Catheter Date of Insertion: 07/09/25 Urinary Catheter Time of Insertion: 11:28 Data 07/11/25 02:35 07/11/25 02:35 Micro: Microbiology 07/10/25 10:41 Urine Culture - Preliminary Urine,Clean Catch Gram Negative Rods Gram Negative Rods#2 A&P Assessment and plan 1. Microcytic anemia: 2. Acute on chronic systolic congestive heart failure: 3. Abdominal distention: Plan: # [id number] HFrEF Reviewed intake labs, vitals, and negative balance 1.7 L. Gradually losing weight. Still significant edema and anasarca. Decrease anasarca of the thighs. But still persistent. As well as lower abdomen. Still significant edema of lower legs. Required 1.5 L nasal cannula oxygen. Continue diuresis. Monitor for risk of Juliette deficiency, potassium reviewed, 3.5 to magnesium reviewed 2.1. Will give potassium supplement. Recheck chemistry. Monitor telemetry. Severe exacerbation with anasarca, edema involving thighs, lower abdomen. Reviewed intake and output, and negative almost 5 L. Weight appears to be on a downward trend. Acute systolic and diastolic congestive heart failure with anasarca, continue IV diuresis, increased IV Bumex dose to 2 mg every 12 hours. Monitor intake and output. Reassess chemistry. Monitor for risk of Wakeman deficiency, DIGNA, hypovolemia. Reassess volume status, chemistry. Reviewed CBC, recheck CMP, magnesium. Limited echocardiogram obtained. EF noted 20%. Compared to prior EF down from 35%. Has had recent cath with revascularization of LAD. Discussed with cardiology. At current time continue medical management. Will benefit from follow-up after discharge in office. # Microcytic anemia / Symptomatic anemia Discussed with him and his this morning hemoglobin today down to 7.1. She denies melanotic or hemorrhagic stools. Reports some intermittent nausea in the morning which improves with food. Patient denies signs of active bleeding. Discussed additional 1 unit RBC transfusion. Discussed seeking endoscopy prior to discharge after further volume status optimization. Reassess blood counts. Monitor for risk of fluid overload with RBC transfusion. Platelet count reviewed, normal. Repeat blood counts. Discussed with nursing, employment case manager. Discussed iron studies with him and his . Noted iron deficiency anemia on review of TIBC, ferritin. He has had a prior colonoscopy and EGD but it has been a while. Give iron infusion. Monitor for risk of adverse effect, anaphylaxis. Recheck blood counts. He states has endoscopy scheduled but it has been held off due to the recent stent. Discussed with his in case of persistence and downtrend and unable to maintain hemoglobin, may have to consider endoscopic evaluation. - Will continue clopidogrel, but hold Eliquis # Abdominal distention # Elevated T.Bili - Reviewed abdominal ultrasound, trace ascites suspect elevated T.Bili due to hepatic congestion # Exertional dyspnea # Valvular heart disease Echo (06/17/25) * Moderately increased left ventricular cavity size. Severely decreased left ventricular systolic function. LVEF 35 %. Global left ventricular hypokinesis. Grade II/IV diastolic dysfunction, moderately elevated filling pressures. * Mildly thickened mitral valve. No mitral valve stenosis. Mild mitral valve regurgitation. * Moderate aortic valve calcification. Aortic valve stenosis. * Trace aortic valve regurgitation. * Right atrial pressure is around 5 mm of mercury. CXR without acute cardiopulmonary findings HS Trop 16 -> 16.57 NT-proBNP 2764 # AFIB amiodarone 200 mg BID apixaban 5 mg BID, HOLD # CAD (s/p 3v-CABG) Denies CP. 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 Incidentally noted hepatomegaly with hepatic steatosis, should follow-up with primary provider. PDMP PDMP Reviewed: Not Reviewed Attestations 2 Medical Necessity Statement*: Continue admission for assessment and management of acute systolic and diastolic CHF, acute on chronic anemia, iron deficiency anemia with worsening hemoglobin while needing antiplatelet and anticoagulation. and High MDM includes amount and/or complexity of data reviewed/ordered [ resulted lab(s)/test(s), ordered lab(s)/test(s) and other healthcare professional discussion] and described risk of complication, morbidity or mortality of management as documented Diagnoses Microcytic anemia D50.9 Acute on chronic systolic congestive heart failure I50.23 Heart failure chronicity: acute on chronic Heart failure type: systolic Abdominal distention R14.0
--- NOTE | 2025-07-11 11:23 | PC.SOCIAL ---
IMM Updated Updated pt on IMM. No questions voiced. Provided pt a copy. Initialed, dated, & timed a copy & placed in chart.
[2025-07-11] MEDS: cefTRIAXone 1,000 mg SDV 1000 MG IVP (12:26)
[2025-07-11] MEDS: ATORVASTATIN 20 MG TABLET PO (20:15)
[2025-07-12] VITALS: BP 124/58; PULSE 70; RESP 25; O2SAT 95
[2025-07-12 03:27] LABS: Hematocrit 29.1 % (37-53); Hemoglobin 7.90 g/dL (11.27-16.99); Mean Corpuscular HGB Conc 27.1 g/dL (30-55); Mean Corpuscular Hemoglobin 18.3 pg (27-33); Mean Corpuscular Volume 67.4 fl (82-101); Nucleated Red Blood Cells % 0 %; Platelet Count 235 10^3/cmm (157-399); Red Blood Count 4.32 10^6/uL (3.85-5.65); White Blood Count 6.25 10^3/uL (3.29-11.43)
[2025-07-12 03:34] VITALS: BP 119/59; PULSE 72; RESP 21; TEMP 36.8; O2SAT 98
[2025-07-12 03:49] LABS: Alanine Aminotransferase 10 U/L (0-41); Albumin Level 3.4 g/dL (3.5-5.2); Alkaline Phosphatase 124 U/L (40-130); Anion Gap 12.7 (5-19); Aspartate Amino Transferase 18 U/L (0-40); Blood Urea Nitrogen 14 mg/dL (8-23); Calcium 8.1 mg/dL (8.5-10.5); Carbon Dioxide 31 mmol/L (22-29); Chloride 95 mmol/L (98-107); Creatinine Clr Calc Pharmacy 88.3358; Globulin 2.3 g/dL (1.3-4.6); Glucose 137 mg/dL (65-115); Osmolality Calculated 283 mOsm/kg (285-295); Potassium 3.7 mmol/L (3.5-5.1); Sodium 135 mmol/L (136-145); Total Protein 5.7 g/dL (6.6-8.7)
[2025-07-12] MEDS: SACUBITRIL/VALSARTAN 49-51 TABLET 1 EACH PO (04:44)
[2025-07-12] MEDS: metoprolol succinate ER (24 HR) 25 mg Tablet PO (04:44)
[2025-07-12] MEDS: ranolazine (12HR) 500 mg Tablet PO ×2 (04:44→18:49)
[2025-07-12 07:40] VITALS: BP 123/59; PULSE 71; RESP 28; TEMP 37.1; O2SAT 98
[2025-07-12] MEDS: bumetanide 0.25 mg/mL SDV 10 mL 2 MG IVP ×2 (09:25→21:06)
[2025-07-12] MEDS: iron sucrose 200 MG in sodium chloride 0.9% (100 ml) 100 ML 220 MG IV (09:26)
[2025-07-12] MEDS: HYDROcodone-acetaminophen 5-325 mg Tablet 1 TAB PO ×2 (11:09→19:01)
[2025-07-12 11:55] VITALS: BP 110/57; PULSE 70; RESP 18; TEMP 36.3; O2SAT 95
--- NOTE | 2025-07-12 12:30 | P.PN_ITS ---
Subjective 2 Subjective: He has been feeling tired, particularly recently, especially with exertion. Volume status has been gradually improving. He has not had melena or hematochezia or other obvious bleeding. Vitals/I&O/Wt Last Vital Signs Temp 97.3 F L 07/12/25 11:55 Pulse 70 07/12/25 11:55 Resp 18 07/12/25 11:55 BP 110/57 07/12/25 11:55 Pulse Ox 95 07/12/25 11:55 O2 Del Method Room Air 07/12/25 11:55 O2 Flow Rate 1.5 07/11/25 07:07 07/11/25 07/12/25 07/12/25 22:59 06:59 14:59 Intake Total 240 / 820 600 / 1420 240 / 240 Output Total 1800 / 3650 1800 / 5450 1800 / 1800 Balance -1560 / -2830 -1200 / -4030 -1560 / -1560 Weight last 48 hrs Weight 111 kg Weight 112.5 kg Physical Exam 2 Const: COMMON NORMALS: patient oriented x3 and alert GENERAL APPEARANCE: c ooperative ORIENTATION/CONSCIOUSNESS: Yes awake HENMT: COMMON NORMALS: oropharynx normal Neck/C-Spine: COMMON NORMALS: no JVD Resp: COMMON NORMALS: normal respiratory effort and clear to auscultation bilaterally AUSCULTATION: clear to auscultation bilaterally Cardio: COMMON NORMALS: no JVD, regular rhythm, S1 normal heart sound present, S2 normal heart sound present and No murmurs present (Cardio) RHYTHM: regular rhythm HEART SOUNDS: S1 normal heart sound present and S2 normal heart sound present GI: COMMON NORMALS: Normal to inspection, nondistended, normoactive bowel sounds present, Soft to palpation and non-tender PALPATION: Yes Soft to palpation Extremity: COMMON NORMALS: no joint enlargement OTHER: Anasarca, including edema up to thighs and lower abdomen Neuro: COMMON NORMALS: patient oriented x3 and moves all extremities S ENSORIUM/ORIENTATION: Yes alert Skin: COMMON NORMALS: no rashes or lesions noted GENERAL SKIN EXAM: no rashes or lesions noted Urinary Catheter Management: Carter: Cath Placed During This Visit: yes Reason for Continuing Indwelling Catheter: Acute Urinary Retention or Obstruction Urinary Catheter Date of Insertion: 07/09/25 Urinary Catheter Time of Insertion: 11:28 Data 07/12/25 03:14 07/12/25 03:14 Micro: Microbiology 07/10/25 10:41 Urine Culture - Preliminary Urine,Clean Catch Gram Negative Rods Citrobacter koseri A&P Assessment and plan 1. Microcytic anemia: 2. Acute on chronic systolic congestive heart failure: 3. Abdominal distention: Plan: # [id number] HFrEF Reviewed intake and output, again in negative balance, -4.3 L. Oxygenation with improvement, weaning down to 1.5 L and today at rest is able to come down to room air. Still with significant anasarca, but edema has been subsiding. Weight is decreasing. Decrease anasarca of the thighs. But still persistent. As well as lower abdomen. Still significant edema of lower legs. Continue diuresis. Monitor for risk of electrolyte deficiency, Chemistry reviewed. Recheck chemistryRequested. Monitor telemetry. Acute systolic and diastolic congestive heart failure with anasarca, continue IV diuresis, increased IV Bumex dose to 2 mg every 12 hours. Monitor intake and output. Reassess chemistry. Monitor for risk of Deaver deficiency, DGINA, hypovolemia. Reassess volume status, chemistry. Limited echocardiogram obtained. EF noted 20%. Compared to prior EF down from 35%. Has had recent cath with revascularization of LAD. Discussed with cardiology. At current time continue medical management. Will benefit from follow-up after discharge in office. # Microcytic anemia / Symptomatic anemia Discussed with him, hemoglobin after transfusion up to 7.9. He denies melanotic or hemorrhagic stools. Reports some intermittent nausea in the morning which improves with food. Patient denies signs of active bleeding, although does have some microscopic hematuria. He is on Plavix, and after recent stent in January would be safer to continue on Plavix, as per discussion with our surgeon concern regarding intervention while on Plavix, could offer him a diagnostic endoscopy, in case source of bleeding is found, would then need to be transferred for intervention. Discussed this option with the patient, as opposed to seeking transfer after volume optimization for further endoscopic evaluation with potential management during the same procedure. Monitor for risk of fluid overload with RBC transfusion. Platelet count reviewed, normal. Repeat blood counts. Discussed with nursing, human services case manager. Discussed iron studies with him and his . Noted iron deficiency anemia on review of TIBC, ferritin. He has had a prior colonoscopy and EGD but it has been a while. Give iron infusion. Monitor for risk of adverse effect, anaphylaxis. Recheck blood counts. He states has endoscopy scheduled but it has been held off due to the recent stent. Discussed with his in case of persistence and downtrend and unable to maintain hemoglobin, may have to consider endoscopic evaluation. - Will continue clopidogrel, but hold Eliquis # Abdominal distention # Elevated T.Bili - Reviewed abdominal ultrasound, trace ascites suspect elevated T.Bili due to hepatic congestion # Exertional dyspnea # Valvular heart disease Echo (06/17/25) * Moderately increased left ventricular cavity size. Severely decreased left ventricular systolic function. LVEF 35 %. Global left ventricular hypokinesis. Grade II/IV diastolic dysfunction, moderately elevated filling pressures. * Mildly thickened mitral valve. No mitral valve stenosis. Mild mitral valve regurgitation. * Moderate aortic valve calcification. Aortic valve stenosis. * Trace aortic valve regurgitation. * Right atrial pressure is around 5 mm of mercury. CXR without acute cardiopulmonary findings HS Trop 16 -> 16.57 NT-proBNP 2764 # AFIB amiodarone 200 mg BID apixaban 5 mg BID, HOLD # CAD (s/p 3v-CABG) Denies CP. 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 Incidentally noted hepatomegaly with hepatic steatosis, should follow-up with primary provider. PDMP PDMP Reviewed: Not Reviewed Attestations 2 Medical Necessity Statement*: Continue admission for assessment and management of acute systolic and diastolic CHF, acute on chronic anemia, iron deficiency anemia with worsening hemoglobin while needing antiplatelet and anticoagulation. and High MDM includes amount and/or complexity of data reviewed/ordered [ resulted lab(s)/test(s), ordered lab(s)/test(s) and other healthcare professional discussion] and described risk of complication, morbidity or mortality of management as documented Diagnoses Microcytic anemia D50.9 Acute on chronic systolic congestive heart failure I50.23 Heart failure chronicity: acute on chronic Heart failure type: systolic Abdominal distention R14.0
[2025-07-12] MEDS: cefTRIAXone 1,000 mg SDV 1000 MG IVP (12:45)
[2025-07-12 16:00] VITALS: BP 123/60; PULSE 76; RESP 26; O2SAT 96
[2025-07-12 20:00] VITALS: BP 113/52; PULSE 72; RESP 21; TEMP 37; O2SAT 95
[2025-07-13] VITALS (7 sets, daily range): BP systolic 103–128; BP diastolic 48–64; PULSE 70–76; RESP 17–29; TEMP 36.4–36.6; O2SAT 92–97
[2025-07-13 02:33] LABS: Hematocrit 31.5 % (37-53); Hemoglobin 8.80 g/dL (11.27-16.99); Mean Corpuscular HGB Conc 27.9 g/dL (30-55); Mean Corpuscular Hemoglobin 19.3 pg (27-33); Mean Corpuscular Volume 69.2 fl (82-101); Nucleated Red Blood Cells % 0.3 %; Platelet Count 240 10^3/cmm (157-399); Red Blood Count 4.55 10^6/uL (3.85-5.65); White Blood Count 5.95 10^3/uL (3.29-11.43)
[2025-07-13] MEDS: HYDROcodone-acetaminophen 5-325 mg Tablet 1 TAB PO ×4 (02:34→21:48)
--- NOTE | 2025-07-13 02:38 | PC.NURSE ---
Patient has a large bruise on left thigh from a near fall episode at home. Per patient he was carrying a crockpot and tripped going down on his knees. Patient complaints of pain in leg. Bruise outline with skin marker and pain medication provided.
[2025-07-13] MEDS: alum-mag-hydroxide-sime 30 mL UDC PO (02:50)
[2025-07-13 02:52] LABS: Alanine Aminotransferase 10 U/L (0-41); Albumin Level 3.8 g/dL (3.5-5.2); Alkaline Phosphatase 131 U/L (40-130); Anion Gap 15.1 (5-19); Aspartate Amino Transferase 19 U/L (0-40); Blood Urea Nitrogen 13 mg/dL (8-23); Calcium 8.7 mg/dL (8.5-10.5); Carbon Dioxide 31 mmol/L (22-29); Chloride 98 mmol/L (98-107); Globulin 2.7 g/dL (1.3-4.6); Glucose 128 mg/dL (65-115); Osmolality Calculated 292 mOsm/kg (285-295); Potassium 4.1 mmol/L (3.5-5.1); Sodium 140 mmol/L (136-145); Total Protein 6.5 g/dL (6.6-8.7)
[2025-07-13] MEDS: metoprolol succinate ER (24 HR) 25 mg Tablet PO (05:27)
[2025-07-13] MEDS: SACUBITRIL/VALSARTAN 49-51 TABLET 1 EACH PO (05:28)
[2025-07-13] MEDS: ranolazine (12HR) 500 mg Tablet PO ×2 (05:28→16:51)
[2025-07-13] MEDS: bumetanide 0.25 mg/mL SDV 10 mL 2 MG IVP ×2 (09:01→21:48)
[2025-07-13] MEDS: iron sucrose 200 MG in sodium chloride 0.9% (100 ml) 100 ML 220 MG IV (10:03)
--- NOTE | 2025-07-13 11:10 | XRR_ITS ---
PROCEDURE INFORMATION: Exam: XR Left Hip Exam date and time: 07/13/2025 12:24 PM Age: 69 years old Clinical indication: Injury or trauma; Fall; Blunt trauma (contusions or hematomas); Left; Hip; Additional info: Fall, L prox leg pain, hematoma fell 1 week ago TECHNIQUE: Imaging protocol: Radiologic exam of the left hip. Views: 2 or 3 views hip with pelvis when performed. COMPARISON: CR XR lumbar spine min 4V [id number] 10/09/2018 10:09 AM FINDINGS: Tubes, catheters and devices: Surgical clips overlie the left hemipelvis. Bones/joints: No acute fracture or dislocation. Mild degenerative changes of the hip. Soft tissues: Unremarkable. Vasculature: Scattered vascular calcifications. XR/XR hip LT 2-3V wo/w pel* [id number] IMPRESSION: No acute osseous findings.
--- NOTE | 2025-07-13 11:16 | P.PN_ITS ---
Subjective 2 Subjective: He denies any additional changes today. He is close to his nurse earlier today that several days ago he had a controlled fall when he was carrying a heavy pot with food in it, he slid down onto his knees to catch himself in the pod. Subsequent with pain on the proximal left inner posterior thigh, and reports an enlarging bruise. Vitals/I&O/Wt Last Vital Signs Temp 97.6 F 07/13/25 07:54 Pulse 70 07/13/25 11:14 Resp 25 H 07/13/25 11:14 BP 103/48 07/13/25 11:14 Pulse Ox 97 07/13/25 11:14 O2 Del Method Nasal Cannula 07/13/25 11:14 O2 Flow Rate 1.5 07/11/25 07:07 07/12/25 07/13/25 07/13/25 22:59 06:59 14:59 Intake Total 110 / 710 960 / 1670 600 / 600 Output Total 3000 / 4800 1825 / 6625 2150 / 2150 Balance -2890 / -4090 -865 / -4955 -1550 / -1550 Weight last 48 hrs Weight 110.5 kg Weight 111 kg Physical Exam 2 Const: COMMON NORMALS: patient oriented x3 and alert GENERAL APPEARANCE: c ooperative ORIENTATION/CONSCIOUSNESS: Yes awake HENMT: COMMON NORMALS: oropharynx normal Neck/C-Spine: COMMON NORMALS: no JVD Resp: COMMON NORMALS: normal respiratory effort and clear to auscultation bilaterally AUSCULTATION: clear to auscultation bilaterally Cardio: COMMON NORMALS: no JVD, regular rhythm, S1 normal heart sound present, S2 normal heart sound present and No murmurs present (Cardio) RHYTHM: regular rhythm HEART SOUNDS: S1 normal heart sound present and S2 normal heart sound present GI: COMMON NORMALS: Normal to inspection, nondistended, normoactive bowel sounds present, Soft to palpation and non-tender PALPATION: Yes Soft to palpation Extremity: COMMON NORMALS: no joint enlargement OTHER: Resolving anasarca thighs and lower abdomen. Improving LE edema Large bruise and some enlargement of the left proximal thigh compared to the right. Bruise extending over the proximal medial and posterior aspect of the thigh towards the distal leg, about three quarters of the way. Has been demarcated. Neuro: COMMON NORMALS: patient oriented x3 and moves all extremities S ENSORIUM/ORIENTATION: Yes alert Skin: COMMON NORMALS: no rashes or lesions noted GENERAL SKIN EXAM: no rashes or lesions noted Urinary Catheter Management: Catrer: Cath Placed During This Visit: yes Reason for Continuing Indwelling Catheter: Accurate Measurement of Urinary Output in Critically Ill Patients Urinary Catheter Date of Insertion: 07/09/25 Urinary Catheter Time of Insertion: 11:28 Data 07/13/25 02:23 07/13/25 02:23 Micro: Microbiology 07/10/25 10:41 Urine Culture - Preliminary Urine,Clean Catch Gram Negative Rods Citrobacter koseri A&P Assessment and plan 1. Microcytic anemia: 2. Acute on chronic systolic congestive heart failure: 3. Abdominal distention: Plan: # [id number] HFrEF Reviewed intake and output, again in negative balance, -4.3 L. Oxygenation with improvement, weaning down to 1.5 L and today at rest is able to come down to room air. Still with significant anasarca, but edema has been subsiding. Weight is decreasing. Decrease anasarca of the thighs. But still persistent. As well as lower abdomen. Still significant edema of lower legs. Continue diuresis. Monitor for risk of electrolyte deficiency, Chemistry reviewed. Recheck chemistryRequested. Monitor telemetry. Acute systolic and diastolic congestive heart failure with anasarca, continue IV diuresis, increased IV Bumex dose to 2 mg every 12 hours. Monitor intake and output. Reassess chemistry. Monitor for risk of Juliette deficiency, DIGNA, hypovolemia. Reassess volume status, chemistry. Limited echocardiogram obtained. EF noted 20%. Compared to prior EF down from 35%. Has had recent cath with revascularization of LAD. Discussed with cardiology. At current time continue medical management. Will benefit from follow-up after discharge in office. # Microcytic anemia / Symptomatic anemia Reviewed vitals, CBC. Without tachycardia, blood pressure soft, but maintaining similar over the last several days. Reported controlled fall several days ago onto his knees with resultant bruising and swelling of the left proximal inner/posterior thigh. It is a very large bruise there, with swelling of the left thigh compared to the right extending to three-quarter of the way down towards his knee. Discussed with him hematoma likely reason for the recent blood loss. Eliquis has been on hold, continue to withhold currently. Continue Plavix at this time, will reassess as per discussion. Bruising/hematoma demarcated. With some pain on standing of the proximal inner/posterior left thigh. Discussed with surgeon, will hold off EGD/colonoscopy for now, pending continued outpatient arrangements as per prior plans once he is able to be off Plavix. Discussed with him we will follow-up blood counts, reassess hematoma. CBC reviewed, hemoglobin today up to 8.8. Platelets reviewed, normal at 240. Discussed with nursing, welfare case worker. Discussed iron studies with him and his . Noted iron deficiency anemia on review of TIBC, ferritin. He has had a prior colonoscopy and EGD but it has been a while. Repeat iron infusion. Monitor for risk of adverse effect, anaphylaxis. Recheck blood counts. He states has endoscopy scheduled but it has been held off due to the recent stent. Discussed with his in case of persistence and downtrend and unable to maintain hemoglobin, may have to consider endoscopic evaluation. - Will continue clopidogrel, but hold Eliquis L thigh hematoma: after controlled fall onto his knees. As above. With pain in the proximal inner left thigh will additionally assess with hip x-ray. # Abdominal distention # Elevated T.Bili - Reviewed abdominal ultrasound, trace ascites suspect elevated T.Bili due to hepatic congestion # Exertional dyspnea # Valvular heart disease Echo (06/17/25) * Moderately increased left ventricular cavity size. Severely decreased left ventricular systolic function. LVEF 35 %. Global left ventricular hypokinesis. Grade II/IV diastolic dysfunction, moderately elevated filling pressures. * Mildly thickened mitral valve. No mitral valve stenosis. Mild mitral valve regurgitation. * Moderate aortic valve calcification. Aortic valve stenosis. * Trace aortic valve regurgitation. * Right atrial pressure is around 5 mm of mercury. CXR without acute cardiopulmonary findings HS Trop 16 -> 16.57 NT-proBNP 2764 # AFIB amiodarone 200 mg BID apixaban 5 mg BID, HOLD # CAD (s/p 3v-CABG) Denies CP. 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 Incidentally noted hepatomegaly with hepatic steatosis, should follow-up with primary provider. PDMP PDMP Reviewed: Not Reviewed Attestations 2 Medical Necessity Statement*: Continue admission for assessment and management of acute systolic and diastolic CHF, acute on chronic anemia, iron deficiency anemia with worsening hemoglobin while needing antiplatelet and anticoagulation. and High MDM includes amount and/or complexity of data reviewed/ordered [ resulted lab(s)/test(s), ordered lab(s)/test(s) and other healthcare professional discussion] and described risk of complication, morbidity or mortality of management as documented Diagnoses Microcytic anemia D50.9 Acute on chronic systolic congestive heart failure I50.23 Heart failure chronicity: acute on chronic Heart failure type: systolic Abdominal distention R14.0
[2025-07-13] MEDS: cefTRIAXone 1,000 mg SDV 1000 MG IVP (13:34)
[2025-07-13] MEDS: ATORVASTATIN 20 MG TABLET PO (21:47)
[2025-07-14] VITALS: BP 119/54; PULSE 70; RESP 16; TEMP 36.6; O2SAT 97
[2025-07-14 03:09] LABS: Hematocrit 30.8 % (37-53); Hemoglobin 8.50 g/dL (11.27-16.99); Mean Corpuscular HGB Conc 27.6 g/dL (30-55); Mean Corpuscular Hemoglobin 19.5 pg (27-33); Mean Corpuscular Volume 70.8 fl (82-101); Nucleated Red Blood Cells % 0 %; Platelet Count 272 10^3/cmm (157-399); Red Blood Count 4.35 10^6/uL (3.85-5.65); White Blood Count 5.19 10^3/uL (3.29-11.43)
[2025-07-14 03:38] LABS: Alanine Aminotransferase 9 U/L (0-41); Albumin Level 3.5 g/dL (3.5-5.2); Alkaline Phosphatase 122 U/L (40-130); Anion Gap 12.7 (5-19); Aspartate Amino Transferase 17 U/L (0-40); Blood Urea Nitrogen 13 mg/dL (8-23); Calcium 8.5 mg/dL (8.5-10.5); Carbon Dioxide 33 mmol/L (22-29); Chloride 97 mmol/L (98-107); Globulin 2.6 g/dL (1.3-4.6); Glucose 125 mg/dL (65-115); Osmolality Calculated 290 mOsm/kg (285-295); Potassium 3.7 mmol/L (3.5-5.1); Sodium 139 mmol/L (136-145); Total Protein 6.1 g/dL (6.6-8.7)
[2025-07-14 04:00] VITALS: BP 121/59; PULSE 77; RESP 23; TEMP 37; O2SAT 94
[2025-07-14] MEDS: SACUBITRIL/VALSARTAN 49-51 TABLET 1 EACH PO (06:12)
[2025-07-14] MEDS: metoprolol succinate ER (24 HR) 25 mg Tablet PO (06:12)
[2025-07-14] MEDS: ranolazine (12HR) 500 mg Tablet PO (06:12)
[2025-07-14] MEDS: HYDROcodone-acetaminophen 5-325 mg Tablet 1 TAB PO (06:52)
[2025-07-14 07:32] VITALS: BP 100/52; PULSE 78; RESP 19; TEMP 36.3; O2SAT 90
--- NOTE | 2025-07-14 08:54 | P.DS_ITS ---
Discharge Providers Date of Admission: 07/09/25 13:29 Date of Discharge: July 14, 2025 Attending Provider at Admission: Satinder Chapa Attending Provider at Discharge: Satinder Chapa Primary Care Provider: Teodoro Jon DO Diagnoses at Discharge Discharge Diagnosis 1. Microcytic anemia: 2. Acute on chronic systolic congestive heart failure: 3. Abdominal distention: Reason for Visit Reason for Visit: retaining fluid, weakness Brief History: Dwayne Salinas is a 69 year old male with PMHx of HTN, CAD (s/p 3v-CABG 01/2025), AFIB/Flutter (s/p ablation), ICM / HFrEF 40-45%, HLD, Dm 2T, anemia Patient presented to [facility] ED on 07/08/25 out of concern for fluid retention. Patient was hospitalized to 06/20/25 for atrial fibrillation and decompensated heart failure. Since discharge, over that past 2.5 weeks, he noted progressive increase in BLE edema, orthopnea, exertional dyspnea and abdominal distention. He reports weight gain of 20 lbs. Reports adherence with his medications. He reports to have been taking double dose of furosemide since Monday (07/04/25), taking 80 mg AM and 40 mg PM. Despite increase in diuretic dose, he reports continued weight gain. He reports experiencing right sided tenderness. Denies N/V/D, hemoptysis, hematemesis and blood loss per rectum. Denies prior history of GIB. Does not use NSAIDs. ED Course Presenting VS, 07/08/25 1637 T 97.6 BP 117/58 HR 70 RR 14 SpO2 95% Labs, 07/08/25 1546 HemogramWBC 5.89 RBC 4.04 PLT 265 HGB 6.9 HCT 25.9 ChemistryNa 133 K 4.1 Cl 97 Ca 8.3 Glu 214 CO2 24 AG 16 BUN 24 Cr 1.5 eGFR 46.4 AST 20 ALT 14 ALP 136 T.Bili 1.3 Alb 3.8 T.Protein 6.2 HS Trop 16 -> 16.57 NT-proBNP 2764 CXR 07/08/25 No acute findings. In ED received 60 mg IV furosemide and 1u pRBC transfusion was initiated. Hospital Course Hospital Course Received treatment with IV diuretics with gradual improvement in anasarca. Noted to have acute on chronic anemia with worsening hemoglobin falling below 7 twice requiring 2 units of transfusion during the hospitalization, eventually leveled off. Initially consideration was given to further GI endoscopic evaluation as discussed with him with consideration of diagnostic endoscopic evaluation here as per surgery Ability, with transfer if needing intervention versus transfer for endoscopic evaluation elsewhere, this has been already planned as outpatient but has been on hold due to him requiring Plavix after the recent stenting in January, however, he eventually also gave history and showed large bruising on in her posterior left thigh after a fall to his knees while carrying a heavy pot of soup that he did not want to drop, with sustained hematoma and because of the current acute on chronic anemia. Endoscopic evaluation further deferred. He has been started on iron supplementation. He will resume planning for endoscopic evaluation with his primary care provider after discharge. Eliquis is withheld for now due to the hematoma, please revisit and consider resuming when safe. He completed an antibiotic course for urinary tract infection urine culture eventually growing E. coli and Citrobacter. Physical Exam Const: COMMON NORMALS: patient oriented x3 and alert GENERAL APPEARANCE: cooperative ORIENTATION/CONSCIOUSNESS: Yes awake HENMT: COMMON NORMALS: oropharynx normal Neck/C-Spine: COMMON NORMALS: no JVD Resp: COMMON NORMALS: normal respiratory effort and clear to auscultation bilaterally AUSCULTATION: clear to auscultation bilaterally Cardio: COMMON NORMALS: no JVD, regular rhythm, S1 normal heart sound present, S2 normal heart sound present and No murmurs present (Cardio) RHYTHM: regular rhythm HEART SOUNDS: S1 normal heart sound present and S2 normal heart sound present GI: COMMON NORMALS: Normal to inspection, nondistended, normoactive bowel sounds present, Soft to palpation and non-tender PALPATION: Yes Soft to palpation Extremity: COMMON NORMALS: no joint enlargement and no pedal edema Neuro: COMMON NORMALS: patient oriented x3 and moves all extremities SENSORIUM/ORIENTATION: Yes alert Skin: COMMON NORMALS: no rashes or lesions noted GENERAL SKIN EXAM: no rashes or lesions noted Urinary Catheter Management: Carter: Cath Placed During This Visit: yes Reason for Continuing Indwelling Catheter: Accurate Measurement of Urinary Output in Critically Ill Patients Urinary Catheter Date of Insertion: 07/09/25 Urinary Catheter Time of Insertion: 11:28 Discharge Data Studies Completed and Pending Completed Studies During Hospitalization Category Date Time Status XR chest 1V portable [id number] Stat Exams 11/25/25 15:16 Completed XR hip LT 2-3V wo/w pel* [id number] Routine Exams 07/13/25 11:10 Completed CV. echo limited [id number] Routine Ultrasound 07/08/25 19:09 Completed US abdomen complete* [id number] Routine Ultrasound 07/08/25 18:41 Completed Radiology Impressions Chest X-Ray 07/08/25 15:16 IMPRESSION: No acute findings. Abdomen Ultrasound 07/08/25 18:41 IMPRESSION: 1. Trace perihepatic ascites. 2. Pulsatile bidirectional flow in the main hepatic vein and mildly pulsatile flow in the main portal vein. Findings can be seen with tricuspid regurgitation/right heart failure and cirrhosis among other etiologies. Correlate with clinical findings. 3. 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 Follow-up imaging in 5 years is recommended. 4. Hepatomegaly with hepatic steatosis. 5. Status post cholecystectomy. Hip/Pelvis X-Ray 07/13/25 11:10 IMPRESSION: No acute osseous findings. Laboratory Results WBC 5.19 10^3/uL (3.29-11.43) 07/14/25 02:41 Corrected WBC Cancelled 07/09/25 04:39 RBC 4.35 10^6/uL (3.85-5.65) 07/14/25 02:41 Hgb 8.50 g/dL (11.27-16.99) L 07/14/25 02:41 Hct 30.8 % (37-53) L 07/14/25 02:41 MCV 70.8 fl (82-101) L 07/14/25 02:41 MCH 19.5 pg (27-33) L 07/14/25 02:41 MCHC 27.6 g/dL (30-55) L 07/14/25 02:41 RDW 28.7 % (12.1-15.1) H 07/14/25 02:41 Plt Count 272 10^3/cmm (157-399) 07/14/25 02:41 MPV 9.4 fL (7.4-10.4) 07/14/25 02:41 Gran % Cancelled 07/09/25 04:39 Neut % (Auto) 57.7 % 07/14/25 02:41 Lymph % (Auto) 16.4 % 07/14/25 02:41 [place] % (Auto) 18.1 % 07/14/25 02:41 Eos % (Auto) 6.0 % 07/14/25 02:41 Baso % (Auto) 1.2 % 07/14/25 02:41 Neut # (Auto) 3.00 10^3/uL (1.8-7.7) 07/14/25 02:41 Lymph # (Auto) 0.9 10^3/uL (0.8-4.8) 07/14/25 02:41 [place] # (Auto) 0.9 10^3/uL (0.2-0.9) 07/14/25 02:41 Eos # (Auto) 0.3 10^3/uL (0.0-0.8) 07/14/25 02:41 Baso # (Auto) 0.1 10^3/uL (0.0-0.1) 07/14/25 02:41 Absolute Gran (auto) Cancelled 07/09/25 04:39 Nucleated RBC % (auto) 0 % 07/14/25 02:41 Nucleated RBCs # 0.0 /100WBC 07/14/25 02:41 Sodium 139 mmol/L (136-145) 07/14/25 02:41 Potassium 3.7 mmol/L (3.5-5.1) 07/14/25 02:41 Chloride 97 mmol/L (98-107) L 07/14/25 02:41 Carbon Dioxide 33 mmol/L (22-29) H 07/14/25 02:41 Anion Gap 12.7 (5-19) 07/14/25 02:41 BUN 13 mg/dL (8-23) 07/14/25 02:41 Creatinine 1.0 mg/dL (0.7-1.2) 07/14/25 02:41 GFR Calculation 74.1 mL/min (90-130) L 07/14/25 02:41 Glucose 125 mg/dL (65-115) H 07/14/25 02:41 POC Glucose 145 mg/dL (70-110) H 07/11/25 07:06 Calculated Osmolality 290 mOsm/kg (285-295) 07/14/25 02:41 Calcium 8.5 mg/dL (8.5-10.5) 07/14/25 02:41 Magnesium 2.1 mg/dL (1.7-2.3) 07/11/25 02:35 Iron 14 ug/dL (59-158) L 07/08/25 15:46 TIBC 456 mcg/dl 07/08/25 15:46 % Saturation 3.0 % (20-50) L 07/08/25 15:46 Unsat Iron Binding 442 ug/dL (112-347) H 07/08/25 15:46 Total Bilirubin 1.4 mg/dL (0.15-1.2) H 07/14/25 02:41 AST 17 U/L (0-40) 07/14/25 02:41 ALT 9 U/L (0-41) 07/14/25 02:41 Alkaline Phosphatase 122 U/L (40-130) 07/14/25 02:41 Troponin T Baseline 16 ng/L (0-15) H 07/08/25 15:46 Troponin T 120 Minute 16.57 ng/L (0-15) H 07/08/25 17:30 Delta Troponin T 0.57 ABS# (0-10) 07/08/25 17:30 Troponin T Hi Sens 6Hr 21.38 ng/L (0-15) H 07/08/25 23:15 Troponin T Hi Sens 6Hr Delta 5.38 ng/L (0-12) 07/08/25 23:15 NT-Pro-B Natriuret Pep 2764 pg/mL (0-125) H 07/08/25 15:46 Total Protein 6.1 g/dL (6.6-8.7) L 07/14/25 02:41 Albumin 3.5 g/dL (3.5-5.2) 07/14/25 02:41 Globulin 2.6 g/dL (1.3-4.6) 07/14/25 02:41 Vitamin B12 1527 pg/mL (232-1245) H 07/08/25 15:46 Folate > 20.0 ng/mL (4.5-32.2) 07/08/25 15:46 Urine Color [place] (Yellow) A 07/10/25 10:41 Urine Appearance Cloudy (CLEAR) A 07/10/25 10:41 Urine pH 6.5 (5-7) 07/10/25 10:41 Ur Specific [place] 1.011 (1.005-1.030) 07/10/25 10:41 Urine Protein Trace (Negative) A 07/10/25 10:41 Urine Glucose (UA) 3+ (Normal) H 07/10/25 10:41 Urine Ketones Negative (Negative) 07/10/25 10:41 Urine Blood 3+ (Negative) A 07/10/25 10:41 Urine Nitrate Negative (Negative) 07/10/25 10:41 Urine Bilirubin Negative (Negative) 07/10/25 10:41 Urine Urobilinogen 1.0 mg/dL (Negative) 07/10/25 10:41 Ur Leukocyte Esterase 3+ (Negative) A 07/10/25 10:41 Urine RBC >100 /hpf (0-2) H 07/10/25 10:41 Urine WBC >100 /hpf (0-5) H 07/10/25 10:41 Ur Squamous Epith Cells 0-5 /hpf (0-5) 07/10/25 10:41 Amorphous Sediment Not Reportable 07/10/25 10:41 Urine Bacteria 4+ /hpf (NONE) H 07/10/25 10:41 Hyaline Casts 11.57 /lpf 07/10/25 10:41 Blood Type O Positive 07/08/25 16:19 Rho(D) Type Rh positive 07/08/25 16:19 Antibody Screen Negative 07/08/25 16:19 Crossmatch See Detail 07/08/25 16:19 Vitals Last Vital Signs Temp 97.4 F L 07/14/25 07:32 Pulse 78 07/14/25 07:32 Resp 19 H 07/14/25 07:32 BP 100/52 07/14/25 07:32 Pulse Ox 90 07/14/25 07:32 O2 Del Method Room Air 07/14/25 07:32 O2 Flow Rate 1.5 07/11/25 07:07 Discharge Plan Discharge Patient Disposition: Home Condition: Stable Prescriptions: New cefdinir 300 mg capsule 300 mg PO BID 4 Days Qty: 8 0RF hydrocodone-acetaminophen 5-325 mg tablet 1 tab PO TID PRN (Reason: pain) Qty: 20 0RF bumetanide 2 mg tablet 2 - 4 mg PO .AM Qty: 30 3RF bumetanide 2 mg tablet 1 - 2 mg PO .PM Qty: 30 3RF ferrous sulfate 325 mg (65 mg iron) tablet 325 mg PO EVERY OTHER DAY Qty: 90 0RF bumetanide 2 mg tablet 2 - 4 mg PO DAILY Qty: 30 0RF Continued acetaminophen [Tylenol Extra Strength] 500 mg tablet 1,000 mg PO TID PRN (Reason: Pain) Rx Instructions: takes with 2 tramadol cholecalciferol (vitamin D3) 2,000 unit tablet 2,000 unit PO QAM clopidogrel 75 mg tablet 75 mg PO QAM Qty: 90 3RF pantoprazole 40 mg tablet,delayed release (DR/EC) 40 mg PO DAILY Qty: 90 1RF glyburide 5 mg tablet 5 mg PO QAM Qty: 90 3RF Rx Instructions: take prior to first meal of the day nitroglycerin [Nitrostat] 0.4 mg tablet, sublingual 0.4 mg SUBLINGUAL Q5M PRN (Reason: Chest Pain) Qty: 25 2RF Rx Instructions: do not exceed 3 doses per episode (DME) reliOn [place] test stripts. See Rx Instructions .Route .MEDSUPPLY Qty: 100 11RF Rx Instructions: As directed, check blood sugar at least once per day. metoprolol succinate 25 mg capsule,sprinkle,ER 24hr 37.5 mg PO DAILY Qty: 45 3RF (DME) ReliOn Prime Test Strips Strip See Rx Instructions .ROUTE .COMPLEX Qty: 100 4RF Dose Instruction: USE 1 TEST STRIP TO BLOOD SUGARS DAILY FOR DIABETES MELLITUS DX E11.9 Rx Instructions: USE 1 TEST STRIP TO BLOOD SUGARS DAILY FOR DIABETES MELLITUS DX E11.9 tadalafil 5 mg tablet 5 mg PO DAILY Qty: 30 3RF Invokana 300 mg tablet 300 mg PO QAM Qty: 90 3RF simvastatin 20 mg tablet 20 mg PO BEDTIME Qty: 90 3RF ranolazine 500 mg tablet extended release 12 hr 500 mg PO BID Qty: 60 0RF amiodarone [Pacerone] 200 mg tablet 200 mg PO BID 30 Days Qty: 60 0RF escitalopram oxalate 10 mg tablet 10 mg PO QAM Qty: 90 1RF Centrum Silver Men 300-600-300 mcg Tablet 1 tab PO QAM ascorbic acid (vitamin C) [Vitamin C] 1,000 mg Tablet 1,000 mg PO QAM cyanocobalamin (vitamin B-12) [Vitamin B-12] 1,000 mcg Tablet 1,000 mcg PO QAM sacubitril-valsartan 24-26 mg tablet 0.5 tab PO QPM sacubitril-valsartan 49-51 mg tablet 1 tab PO DAILY zinc sulfate 50 mg zinc (220 mg) Tablet 50 mg PO QAM Discontinued tramadol 50 mg tablet 100 mg PO TID PRN (Reason: Pain) Qty: 180 5RF furosemide [Lasix] 40 mg tablet 40 - 80 mg PO QAM Qty: 60 0RF furosemide [Lasix] 20 mg tablet 20 - 40 mg PO .2pm Qty: 60 0RF Eliquis 5 mg tablet 5 mg PO BID Qty: 180 3RF Discharge Order = DC NOW: Discharge Order (Routine); Ordered 07/14/25 Ordered By: Satinder Chapa Referrals: Teodoro Jon DO [Primary Care Provider, [facility]] - 07/24/25 12:00 pm Discharge Diet: Cardiac and Diabetic Patient Instructions: Anemia, Bumetanide (By mouth) (Bumex), Cefdinir (By mouth) (Omnicef), Hydrocodone (By mouth), Heart Failure (DC), CHF Stoplight, Opioid Safety, Patient Portal & [place] Instructions Activity Restrictions/Additional Instructions: Follow-up with your provider and cardiology for reassessment after congestive heart failure exacerbation. Your diuretics are switched over to Bumex from Lasix. Continue with 2 mg every morning and 1 mg every evening, but may increase to 4 mg in the morning and 2 mg in the evening in case of worsening fluid overload. Maintain fluid restriction of 1 L/day. Follow-up with your primary doctor for reassessment of blood loss anemia, iron deficiency anemia. Continue plans/arrangements for further assessment with endoscopy to find a source of chronic blood loss and iron deficiency. Heavy primary doctor reassess your left thigh hematoma. No fracture was seen on the hip x-ray, but follow-up in case of persistent pain to consider further imaging. Have your primary doctor follow-up incidental findings on imaging: Incidentally noted ectatic abdominal aorta, follow-up in 5 years is recommended. Incidentally noted hepatomegaly with hepatic steatosis, follow-up with primary sylvester gong. Complete antibiotic course with cefdinir for urinary tract infection. Seek medical attention in case of any worsening or new concerning symptoms. Discharge Attestations Time Spent in Discharge Care*: greater than 30 min Status at Discharge: Cognitive status at discharge: cognitively intact , Behavioral status at discharge: cooperative , Quality Metrics Clinical Quality Measures [ No reported AMI, CVA or VTE this stay] Coding Level of Care Code 45070 Total time (in minutes) for Discharge: 50 Diagnoses Microcytic anemia D50.9 Acute on chronic systolic congestive heart failure I50.23 Heart failure chronicity: acute on chronic Heart failure type: systolic Abdominal distention R14.0
--- NOTE | 2025-07-14 09:58 | PC.CHAP ---
Pastoral Care Encounter/Spiritual Assessment Type of Contact [] Declined mailroom supervisor visit [] Patient/Family/Request visit [] Outpatient visit [] Follow-up visit [] Physician referral [] Code/Alert [x] Routine visit [] Staff referral [] Actively dying [] Patient sleeping [x] Family support [] [] Out of room [] Palliative care [] [] Receiving care in room [] Pre-surgical visit [] Trauma [] Long length of stay [] ICU visit [] Other: Relational/Emotional Strength [] Patient feels connected with others/family/visitors/staff [] Distress [] Loneliness/isolation [] Abandonment Spirituality of Patient [x] Person of [place] [x] Attends Spiritism of their [place] [x] Believes in Prayer [x] Reads Bible or Scientologist materials [] There are Spiritual issues to be addressed Wood 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 Interventions [x] Prayer [x] Active listening [] Non-anxious presence [] Spiritual/emotional support [] Crisis/trauma care [] Spiritual counseling [] Bereavement support [] Provided bereavement packet [x] Provided Bible/devotional materials [] Provided toy/stuffed animal, coloring book to patient or family member [] Provided Communion [] Anointing/[place] [] Salvation [x] Completed spiritual assessment [] Other: Impact on Illness or Injury [] Angry [] Fearful [] Anxious [] Often cries [] Exhaustion [] Unable to work [] Unable to attend rastafari [] Unable to walk/stand [] Unable to read [] Unable to drive [] Unable to eat/drink [] Unable to sleep [] Unable to be with family [] Patient intubated [] Other: Summary Time spent with patient 30 min
[2025-07-14 10:08] VITALS: O2SAT 94; O2SAT 95
[2025-07-14] MEDS: bumetanide 0.25 mg/mL SDV 10 mL 2 MG IVP (10:28)
[2025-07-14] MEDS: ferric gluconate 125 MG in sodium chloride 0.9% (100 ml) 100 ML 110 MG IV (10:28)
--- NOTE | 2025-07-14 10:51 | PC.SOCIAL ---
IMM Update pg 2 of IMM Updated and reviewed w/ patient. Copy provided and copy dated, initialed and placed in chart.
[2025-07-14 11:16] VITALS: BP 113/57; PULSE 77; RESP 24; O2SAT 90
== END 2025-07-14 13:59 | disposition home or self-care (01) | DRG 811 ==
LOC: ER 16:55 → CSU 18:11
PROVIDERS: Nurse Practitioner Gerontology; Admitting Provider Internal Medicine; Emergency Provider Emergency Medicine; PCP Family Medicine; Visit Provider Internal Medicine
DX: D50.9 Iron deficiency anemia, unspecified (principal); I50.23 Acute on chronic systolic (congestive) heart failure; N39.0 Urinary tract infection, site not specified; I38 Endocarditis, valve unspecified; E87.1 Hypo-osmolality and hyponatremia; I11.0 Hypertensive heart disease with heart failure; I25.10 Atherosclerotic heart disease of native coronary artery without angina pectoris; Z95.1 Presence of aortocoronary bypass graft; B96.20 Unspecified Escherichia coli [E. coli] as the cause of diseases classified elsewhere; B96.89 Other specified bacterial agents as the cause of diseases classified elsewhere; R14.0 Abdominal distension (gaseous); I48.91 Unspecified atrial fibrillation; N28.9 Disorder of kidney and ureter, unspecified; E11.65 Type 2 diabetes mellitus with hyperglycemia; E78.5 Hyperlipidemia, unspecified; Z87.891 Personal history of nicotine dependence; Z82.49 Family history of ischemic heart disease and other diseases of the circulatory system; Z83.3 Family history of diabetes mellitus; Z83.438 Family history of other disorder of lipoprotein metabolism and other lipidemia; Z90.49 Acquired absence of other specified parts of digestive tract; Z79.01 Long term (current) use of anticoagulants; K21.9 Gastro-esophageal reflux disease without esophagitis; K76.0 Fatty (change of) liver, not elsewhere classified; S70.12XA Contusion of left thigh, initial encounter; W19.XXXA Unspecified fall, initial encounter; Y92.239 Unspecified place in hospital as the place of occurrence of the external cause
CPT/HCPCS: 36415; 36416; 36430; 51702; 71045; 73502; 76700; 80053; 81001; 82607; 82746; 82962; 83540; 83550; 83735; 83880; 84484; 85025; 86850; 86900; 86920; 87077; 87086; 87186; 93005; 93308; 94760; 99285; G0378; J0696; J1756; J2916; J3490; J9999; P9016

== ENCOUNTER → 2025-07-16 14:40 | Outpatient (BNVA) | payer MEDICARE, OTHER, SELFPAY | PROVIDERS: PCP Family Medicine; Visit Provider Nurse Practitioner Family | DX: I25.10 Atherosclerotic heart disease of native coronary artery without angina pectoris (principal); E78.5 Hyperlipidemia, unspecified; I11.0 Hypertensive heart disease with heart failure; I50.20 Unspecified systolic (congestive) heart failure; D64.9 Anemia, unspecified; I48.91 Unspecified atrial fibrillation; Z79.02 Long term (current) use of antithrombotics/antiplatelets; K59.00 Constipation, unspecified; Z98.890 Other specified postprocedural states; Z95.1 Presence of aortocoronary bypass graft; Z87.891 Personal history of nicotine dependence | CPT/HCPCS: 99214 ==

== ENCOUNTER → 2025-07-22 10:38 | Outpatient (BNVA) | payer MEDICARE, OTHER, SELFPAY | PROVIDERS: PCP Family Medicine; Visit Provider Family Medicine | DX: D64.9 Anemia, unspecified (principal); I50.23 Acute on chronic systolic (congestive) heart failure; I25.10 Atherosclerotic heart disease of native coronary artery without angina pectoris | CPT/HCPCS: 80053; 83540; 85025 ==

== ENCOUNTER 2025-08-05 12:46 | Outpatient (CLI) | payer MEDICARE, OTHER, SELFPAY ==
[2025-08-05 13:26] LABS: Anion Gap 12.4 (5-19); Blood Urea Nitrogen 25 mg/dL (8-23); Calcium 9.4 mg/dL (8.5-10.5); Carbon Dioxide 32 mmol/L (22-29); Chloride 95 mmol/L (98-107); Glucose 138 mg/dL (65-115); Osmolality Calculated 287 mOsm/kg (285-295); Potassium 4.4 mmol/L (3.5-5.1); Sodium 135 mmol/L (136-145)
== END 2025-08-05 12:47 | disposition home or self-care (01) ==
LOC: LAB 12:47
PROVIDERS: PCP Family Medicine; Visit Provider Family Medicine
DX: N28.9 Disorder of kidney and ureter, unspecified (principal)
CPT/HCPCS: 36415; 80048